=== PATIENT | male | born 1960 | race Caucasian/White ===

== ENCOUNTER 2021-03-04 13:13 | Emergency (ER) | payer OTHER, SELFPAY ==
--- NOTE | ~2021-03-04 | XR_ITS ---
EXAMINATION: XR CHEST CLINICAL INFORMATION: Shortness of breath COMPARISON: None TECHNIQUE: Frontal view of the chest was obtained. FINDINGS: No significant abnormality is noted involving the heart, lungs, mediastinum, bony thorax or soft tissues. XR/XR chest 1V IMPRESSION: Unremarkable examination.
[2021-03-04 14:36] VITALS: BP 137/84; PULSE 67; RESP 18; TEMP 37.3; O2SAT 100; BMI 26.1
--- NOTE | 2021-03-04 14:40 | ECG_ITS ---
Test Reason : COVID SYMPTOMS Blood Pressure : / mmHG Vent. Rate : 069 BPM Atrial Rate : 069 BPM P-R Int : 164 ms QRS Dur : 086 ms QT Int : 398 ms P-R-T Axes : -04 -32 112 degrees QTc Int : 426 ms Normal sinus rhythm with sinus arrhythmia Left axis deviation Septal infarct (cited on or before 12-SEP-2019) T wave abnormality, consider lateral ischemia Abnormal ECG When compared with ECG of 12-SEP-2019 19:38, No significant change was found Referred By: Generic ED Physician Electronically Signed By:SAHIL BERMUDEZ
[2021-03-04 17:05] LABS: Basophils Percent Auto 0.2 % (0-2); Eosinophils Absolute Auto 0.2 X10*3/uL (0.0-0.4); Eosinophils Percent Auto 2.7 % (0-4); Hemoglobin 15.4 g/dl (14.0-18.0); Imm Gran Abs Auto 0.01 X10*3/uL (0.00-0.03); Imm Gran Pct Auto 0.2 % (0.0-0.4); Lymphocytes Absolute Auto 1.8 X10*3/uL (1.2-4.9); Lymphocytes Percent Auto 28.3 % (20-40); MANUAL DIFF FLAG NO; Mean Corpuscular HGB Conc 34.2 g/dl (31.0-36.0); Mean Corpuscular Volume 84.7 fL (80-98); Mean Platelet Volume 12.1 fL (9.4-12.4); Monocytes Absolute Auto 0.4 X10*3/uL (0.1-1.2); Monocytes Percent Auto 6.1 % (2-11); Neutrophils Absolute Auto 3.9 X10*3/uL (2.0-8.3); Neutrophils Percent Auto 62.5 % (45-73); Platelet Count 144 X10*3/uL (160-400); Red Blood Count 5.31 X10*6/uL (4.60-5.80); Red Cell Distribution Width 12.6 % (11.0-16.0); White Blood Count 6.3 X10*3/uL (4.8-10.8)
[2021-03-04 17:23] LABS: COVID-19 Test Negative (Negative)
[2021-03-04 17:32] LABS: Anion Gap 10 (12-20); Blood Urea Nitrogen 14 mg/dL (9-16); Calcium 9.4 mg/dL (8.4-10.2); Carbon Dioxide 34 mmol/L (22-29); Chloride 102 mmol/L (96-108); Creatinine Clr Calc Pharmacy 87.1; Estimated Glomerular Filt Rate > 60; Glucose Random 159 mg/dL (60-115); Potassium 4.7 mmol/L (3.3-5.1); Sodium 141 mmol/L (135-145)
--- NOTE | 2021-03-04 18:22 | ED.URI ---
HPI - URI/Sore Throat General Chief Complaint: Upper Respiratory Symptoms Stated Complaint: covid symptoms Time Seen by Provider: 03/04/21 17:08 Source: patient Mode of arrival: ambulatory Limitations: language barrier History of Present Illness HPI Narrative: 60-year-old male who recently visited with people who had COVID, presents for concerns for COVID with 1 day of sore throat and mild diffuse abdominal pain. The patient is able to swallow, no ear pain. No chest pain, no short of breath, no nausea, vomiting, diarrhea, no nasal congestion, no cough, no fevers MD elicited complaint: sore throat Onset (ago): day(s) (1) Consistency: constant Severity: mild Able to tolerate fluids by mouth: Yes Exacerbating factors: nothing Relieving factors: nothing Context: sick contacts Associated symptoms: denies other symptoms Treatments prior to arrival: none Related Data Previous Rx's Medication Instructions Recorded Magic Mouthwash 5 ml PO Q6-8H PRN #240 ml MDD 20 03/04/21 Diphen/Lido/Antacid 1:1:1 240 mL suspension Allergies Allergy/AdvReac Type Severity Reaction Status Date / Time metformin [Metformin] Allergy Mild ? Unverified 04/01/20 15:28 INTOLERANCE Review of Systems Review of Systems: Constitutional : No Weight loss, No Fever, No Chills, No Night Sweats,No Fatigue, No Malaise ENT/Mouth : + Sore throat, No Hearing loss, No Ear Pain, No Nasal Congestion, NoSinus Pain, No Hoarseness, No Rhinorrhea, NoSwallowing Difficulty Eyes: No Eye Pain, No Swelling, No Redness, No Foreign Body, NoDischarge, No Vision Changes Cardiovascular : No Chest Pain, No SOB, No Dyspnea on Exertion, NoOrthopnea, No Edema, No Palpitations Respiratory : No Cough, No Sputum, No Wheezing, No Smoke Exposure, No Dyspnea Gastrointestinal : No Nausea, No Vomiting, No Diarrhea, NoConstipation, No Hematochezia, No Melena Genitourinary : no irregular bleeding, No Dysuria, No UrinaryFrequency, No Hematuria, No Urinary Incontinence, No Urgency, No FlankPain, No Urinary Flow Changes, No Hesitancy Musculoskeletal : No joint pain, No Myalgias, No Joint Swelling Skin : No Skin Lesions, No rash Neuro : No Weakness, No Numbness, No Paresthesias, No Loss ofConsciousness, No Dizziness, No Headache Psych : mild anxiety, tremors in hands, , No Depression, No SI/HI/AH/VH, No Social Issues, Endocrine : No Polyuria, No Polydipsia, No Temperature Intolerance [facility] Social History Social History Advance Directives: Yes Advance Directives Information Provided: Yes Advance Directives on File: No Physical Exam Vital Signs: Vital Signs: Last Vital Signs Temp 98.4 F 03/04/21 18:32 Pulse 72 03/04/21 18:32 Resp 20 03/04/21 18:32 BP 161/89 H 03/04/21 18:32 Pulse Ox 100 03/04/21 18:32 Body Mass Index 26.1 Appearance: Alert. Oriented X3. No acute distress. Head: Normal external exam. Normocephalic. Atraumatic. ?No Yates signs noted. No raccoon eyes noted Eyes: PERRLA. EOMI. Conjunctiva and sclera normal. Eyelids normal. ENT: + posterior orophayngeal erythema,cerumen impaction, . Uvula midline. Moist mucous membranes. ??No trismus noted. ?No drooling noted. ?No muffled voice noted. Neck: Normal inspection. Neck supple. FROM. No adenopathy. Thyroid Normal. No meningeal signs. No neck mass noted. CVS: Normal heart rate and rhythm. Heart sound normal. Pulses normal throughout. ?No murmurs/rales/gallops. Respiratory: No respiratory distress. Painless inspiration. Breath sounds normal. No wheezes/rales/rhonchi noted. Chest nontender. ??No accessory muscle usage noted or decreased air movement noted. Abdomen: Soft and nontender. Bowel sounds normal in all 4 quadrants. No distention noted. ?No organomegaly noted. ?No visible injury noted. Back: ?No CVA tenderness. ?Full range of motion noted. ?No rashes/lesion/induration/fluctuance or signs of infection noted. Skin: Skin warm and dry. ?Normal skin color. ?Normal skin turgor. No rashes/lesions/lacerations noted. Extremities: No lower extremity edema. ??Extremities exhibit normal range of motion. ?Extremities nontender. Neuro: Oriented X 3. ?No motor deficit. ?No sensory deficit. ?Reflexes normal. ?Normal steady gait. ?No focal neuro deficits noted. Vascular: + radial pulses/+ 2 distal pedal pulses/+2 dorsalis pedis b/l. ?Normal cap refill. ?No cyanosis noted to upper extremity nails and lower extremity toes nails. Course Course Course Narrative: 60-year-old male with COVID exposure presents for 1 day of sore throat. Labs are within normal limits, chest x-ray is normal, COVID is negative. Patient has not had fevers, no strep exposure, I do not suspect strep throat. Most likely viral pharyngitis. Will treat with Magic mouthwash, saltwater gargles, Tylenol, return precautions MDM - URI/Sore Throat Lab Data Result diagrams: 03/04/21 16:57 03/04/21 16:57 Labs: Lab Results 03/04/21 03/04/21 03/04/21 Range/Units 16:57 16:57 16:58 WBC 6.3 (4.8-10.8) X10*3/uL RBC 5.31 (4.60-5.80) X10*6/uL Hgb 15.4 (14.0-18.0) g/dl Hct 45.0 (42-52) % MCV 84.7 (80-98) fL MCH 29.0 (27.0-33.0) pg MCHC 34.2 (31.0-36.0) g/dl RDW 12.6 (11.0-16.0) % Plt Count 144 L (160-400) X10*3/uL MPV 12.1 (9.4-12.4) fL Immature Gran % (Auto) 0.2 (0.0-0.4) % Neut % (Auto) 62.5 (45-73) % Lymph % (Auto) 28.3 (20-40) % [place] % (Auto) 6.1 (2-11) % Eos % (Auto) 2.7 (0-4) % Baso % (Auto) 0.2 (0-2) % Lymph # (Auto) 1.8 (1.2-4.9) X10*3/uL [place] # (Auto) 0.4 (0.1-1.2) X10*3/uL Eos # (Auto) 0.2 (0.0-0.4) X10*3/uL Baso # (Auto) 0.0 (0.0-0.2) X10*3/uL Abs Immat Gran (auto) 0.01 (0.00-0.03) X10*3/uL Absolute Neuts (auto) 3.9 (2.0-8.3) X10*3/uL Absolute Nucleated RBC 0.000 (0.0-0.012) X10*3/uL Nucleated RBC % (auto) 0.0 (0.0-0.2) /100WBC Sodium 141 (135-145) mmol/L Potassium 4.7 (3.3-5.1) mmol/L Chloride 102 (96-108) mmol/L Carbon Dioxide 34 H (22-29) mmol/L Anion Gap 10 L (12-20) BUN 14 (9-16) mg/dL Creatinine 0.85 (0.5-1.4) mg/dL Estim Creat Clear Calc 87.1 Estimated GFR > 60 Random Glucose 159 H (60-115) mg/dL Calcium 9.4 (8.4-10.2) mg/dL COVID-19 (CELI) Negative (Negative) COVID-19 Clin Com See Note ECG Data Interpretation: Sinus rhythm with sinus arrhythmia at a rate of 69, OK interval 164, QRS 86, QTC 426, no acute ST elevation or ST depressions. Discharge Plan Discharge Clinical Impression: Pharyngitis Qualifiers: Pharyngitis/tonsillitis etiology: unspecified etiology Qualified Code(s): J02.9 - Acute pharyngitis, unspecified Patient Disposition: Home, Self-Care Instructions: Pharyngitis (ED) Additional Instructions: Please fill prescription for Magic mouthwash, take a spoonful of it gargle and spit 3 or 4 times a day. You can also use salt water gargles, 1 tsp of salt in a couple of warm water, gargle and spit. You may take ibuprofen or Tylenol for the pain. Please return if you develop fevers, shortness of breath, or any other new or concerning symptoms. Llene la receta del enjuague bucal Magic, tome noah cucharada, wilman g?rgaras y escupe 3 o 4 veces al d?a. Tambi?n puede hacer g?rgaras con agua salada, 1 cucharadita de gerardo en un par de agua tibia, hacer g?rgaras y escupir. Puede moses ibuprofeno o Tylenol para el dolor. Regrese si tiene fiebre, dificultad para respirar o cualquier otro s?ntoma nuevo o preocupante. Prescriptions: New Magic Mouthwash Diphen/Lido/Antacid 1:1:1 240 mL suspension 5 ml PO Q6-8H MDD 20 PRN (Reason: pain) Qty: 240 RF: 0 Interventions: ED Discharge Assessment Last Done: 03/04/21 18:52 Discharge Date/Time: 03/04/21 18:53
[2021-03-04 18:32] VITALS: BP 161/89; PULSE 72; RESP 20; TEMP 36.9; O2SAT 100
== END 2021-03-04 18:53 | disposition home or self-care (01) ==
PROVIDERS: Emergency Provider Emergency Medicine
DX: J06.9 Acute upper respiratory infection, unspecified (principal); Z20.822 Contact with and (suspected) exposure to COVID-19; J02.9 Acute pharyngitis, unspecified
CPT/HCPCS: 36415; 71045; 80048; 85025; 87635; 93005; 99283; 99284

== ENCOUNTER 2021-04-04 11:55 | Emergency (ER) | payer OTHER, SELFPAY ==
[2021-04-04 12:51] VITALS: BP 147/79; PULSE 72; RESP 16; TEMP 37; O2SAT 100; BMI 32.8
== END 2021-04-04 17:12 | disposition left against medical advice (07) ==
PROVIDERS: Emergency Provider Emergency Medicine
DX: H57.11 Ocular pain, right eye (principal)
CPT/HCPCS: 99282; 99283

== ENCOUNTER 2022-10-27 19:37 | Emergency (ER) | payer OTHER, SELFPAY ==
--- NOTE | ~2022-10-27 | XR_ITS ---
EXAMINATION: XR ANKLE, LEFT CLINICAL INFORMATION: Wounds. Pain. COMPARISON: None available. TECHNIQUE: 3 views of the left ankle. FINDINGS: No fracture. No dislocation. Corticated osseous density measuring 8 mm inferior to lateral malleolus is chronic. No focal bone destruction. No radiographic evidence for osteomyelitis. Mild soft tissue swelling at lateral malleolus. No air in the soft tissue. No radiopaque foreign body. Small plantar calcaneal spur XR/XR ankle LT min 3V IMPRESSION: 1. No acute osseous abnormality. 2. Mild soft tissue swelling at lateral malleolus. No air in the soft tissue. No radiopaque foreign body.
--- NOTE | 2022-10-27 20:10 | ED.GENADULT ---
HPI - General Adult General Chief complaint: Extremity Injury, Lower <FABRICIO Garay - Last Filed: 10/27/22 20:11> Stated complaint: Leg pain/neuropathy <FABRICIO Garay - Last Filed: 10/27/22 20:11> Time Seen by Provider: 10/28/22 00:15 <FABRICIO Garay - Last Filed: 10/27/22 20:11> Source: patient <Saulo Patel MD - Last Filed: 10/28/22 07:12> Mode of arrival: ambulatory <Saulo Patel MD - Last Filed: 10/28/22 07:12> Limitations: no limitations <Saulo Patel MD - Last Filed: 10/28/22 07:12> History of Present Illness HPI narrative: Patient diabetic missed his insulin since yesterday as he staying with his friend house had to come in emergency and left his med insulin at home blood sugar on arrival was 522 patient feeling thirsty and weak also complaining of wound in left ankle does not know what happened as has neuropathy and does not feel his feet no fever no chills no pus discharge <Saulo Patel MD - Last Filed: 10/28/22 07:12> Related Data Home medications: Previous Rx's Medication Instructions Recorded Magic Mouthwash 5 ml PO Q6-8H PRN pain #240 mL 03/04/21 Diphen/Lido/Antacid 1:1:1 240 mL suspension <FABRICIO Garay - Last Filed: 10/27/22 20:11> Allergies/adverse reactions: Allergies Allergy/AdvReac Type Severity Reaction Status Date / Time metformin [Metformin] Allergy Mild ? Verified 10/28/22 00:56 INTOLERANCE <FABRICIO Garay - Last Filed: 10/27/22 20:11> Review of Systems Review of Systems: Yes all other systems are reviewed and are negative <Saulo Patel MD - Last Filed: 10/28/22 07:12> PMFSH Past Medical History Medical History: Medical History Diabetes Heart attack HTN (hypertension) Hypercholesterolemia <FABRICIO Garay - Last Filed: 10/27/22 20:11> Social History Social History: Social History Advance Directives: No Advance Directives Information Provided: No <FABRICIO Graay - Last Filed: 10/27/22 20:11> Physical Exam ED Vital Signs: Vital Signs - 24 hr 10/27/22 20:19 10/28/22 00:43 10/28/22 02:59 Temperature 98.0 F 97.8 F 97.5 F Pulse Rate 66 66 59 Respiratory Rate 16 12 12 Blood Pressure 129/66 133/72 154/76 H Pulse Oximetry 98 99 99 Oxygen Delivery Method Room Air Room Air Room Air 10/28/22 03:51 Temperature 97.6 F Pulse Rate 58 Respiratory Rate 16 Blood Pressure 137/69 Pulse Oximetry 99 Oxygen Delivery Method Room Air BMI result Body Mass Index 29.9 <FABRICIO Garay - Last Filed: 10/27/22 20:11> Vital Signs - 24 hr 10/27/22 20:19 10/28/22 00:43 10/28/22 02:59 Temperature 98.0 F 97.8 F 97.5 F Pulse Rate 66 66 59 Respiratory Rate 16 12 12 Blood Pressure 129/66 133/72 154/76 H Pulse Oximetry 98 99 99 Oxygen Delivery Method Room Air Room Air Room Air 10/28/22 03:51 Temperature 97.6 F Pulse Rate 58 Respiratory Rate 16 Blood Pressure 137/69 Pulse Oximetry 99 Oxygen Delivery Method Room Air BMI result Body Mass Index 29.9 <Saulo Patel MD - Last Filed: 10/28/22 07:12> Appearance: Alert. Oriented X3. No acute distress. Eyes: PERRLA, No Nystagmus ENT: Pharynx normal. Oral Mucosa dry Neck: Normal inspection. Neck supple. CVS: Normal heart rate and rhythm. Pulses normal. Respiratory: No respiratory distress. Equal air entry bilateral, no wheezing/rales/rhonchi Abdomen: Soft and nontender. Bowel sounds are present, no mass palpable, no CVA tenderness Skin: Skin warm and dry. Normal skin color. Normal skin turgor. Abrasion to left ankle no infection or pus discharge Extremities: No lower extremity edema. No calf tenderness Neuro: Oriented X 3. No motor deficit. Decreased sensation to light touch and pinprick.No cerebellar signs , cranial nerves II-XII intact <Saulo Patel MD - Last Filed: 10/28/22 07:12> Course Course Course Narrative: RME performed by Danae Arango PA-C. Patient is a 62 year old assigned male at presenting to the emergency department with multiple left lower leg ulcers. Patient is a diabetic. Labs, imaging, and swab ordered. Patient placed back in the waiting room pending room availability and results. <FABRICIO Garay - Last Filed: 10/27/22 20:11> Medications Administered Discontinued Medications Generic Name Dose Route Start Last Admin Trade Name Freq PRN Reason Stop Dose Admin Sodium Chloride 1,000 mls @ 999 mls/hr 10/28/22 00:51 10/28/22 01:59 Ns IV 10/28/22 01:51 Infused .Q1H1M ONE Infusion Insulin Glargine 12 unit 10/28/22 00:51 10/28/22 01:12 Insulin Glargine,Hum.Rec.Anlog 100 Unit/Ml 10 Ml Vial SUBCUT 10/28/22 00:52 12 unit ONCE ONE Administration Insulin Human Lispro 14 unit 10/28/22 00:51 10/28/22 01:13 Insulin Lispro 100 Unit/Ml 3 Ml Vial SUBCUT 10/28/22 00:52 14 unit ONCE ONE Administration <FABRICIO Garay - Last Filed: 10/27/22 20:11> Medications Administered Discontinued Medications Generic Name Dose Route Start Last Admin Trade Name Freq PRN Reason Stop Dose Admin Sodium Chloride 1,000 mls @ 999 mls/hr 10/28/22 00:51 10/28/22 01:59 Ns IV 10/28/22 01:51 Infused .Q1H1M ONE Infusion Insulin Glargine 12 unit 10/28/22 00:51 10/28/22 01:12 Insulin Glargine,Hum.Rec.Anlog 100 Unit/Ml 10 Ml Vial SUBCUT 10/28/22 00:52 12 unit ONCE ONE Administration Insulin Human Lispro 14 unit 10/28/22 00:51 10/28/22 01:13 Insulin Lispro 100 Unit/Ml 3 Ml Vial SUBCUT 10/28/22 00:52 14 unit ONCE ONE Administration <Saulo Patel MD - Last Filed: 10/28/22 07:12> Medical Decision Making Lab Data Result Diagrams: 10/27/22 20:42 10/27/22 20:42 <FABRICIO Garay - Last Filed: 10/27/22 20:11> Labs: Lab Results 10/27/22 10/27/22 10/27/22 Range/Units 20:42 20:42 20:42 WBC 5.9 (4.8-10.8) X10*3/uL RBC 5.36 (4.60-5.80) X10*6/uL Hgb 15.4 (14.0-18.0) g/dl Hct 44.3 (42.0-52.0) % MCV 82.6 (80.0-98.0) fL MCH 28.7 (27.0-33.0) pg MCHC 34.8 (31.0-36.0) g/dl RDW 12.5 (11.0-16.0) % Plt Count 137 L (160-400) X10*3/uL MPV 12.4 (9.4-12.4) fL Immature Gran % (Auto) 0.2 (0.0-0.4) % Neut % (Auto) 67.0 (45-73) % Lymph % (Auto) 25.3 (20-40) % [place] % (Auto) 5.6 (2-11) % Eos % (Auto) 1.7 (0-4) % Baso % (Auto) 0.2 (0-2) % Lymph # (Auto) 1.5 (1.2-4.9) X10*3/uL [place] # (Auto) 0.3 (0.1-1.2) X10*3/uL Eos # (Auto) 0.1 (0.0-0.4) X10*3/uL Baso # (Auto) 0.0 (0.0-0.2) X10*3/uL Abs Immat Gran (auto) 0.01 (0.00-0.03) X10*3/uL Absolute Neuts (auto) 4.0 (2.0-8.3) x10*3/uL Absolute Nucleated RBC 0.000 (0.0-0.012) X10*3/uL Nucleated RBC % (auto) 0.0 (0.0-0.2) /100WBC ESR 6 (0-15) MM/HR Sodium 136 (135-145) mmol/L Potassium 4.1 (3.3-5.1) mmol/L Chloride 99 (96-108) mmol/L Carbon Dioxide 28 (22-29) mmol/L Anion Gap 13 (12-20) BUN 16 (9-16) mg/dL Creatinine 1.35 (0.5-1.4) mg/dL Estim Creat Clear Calc 54.3 Estimated GFR 53 POC Glucose (60-115) mg/dL Random Glucose 522 H* (60-115) mg/dL Calcium 8.9 (8.4-10.2) mg/dL Magnesium 1.9 (1.6-2.6) mg/dL Total Bilirubin 1.7 H (0.0-1.0) mg/dL AST 13 (5-37) U/L ALT 14 (0-40) U/L Alkaline Phosphatase 115 (39-117) U/L C-Reactive Protein 0.69 H (< or = 0.50) mg/dL Total Protein 6.1 L (6.5-8.0) g/dL Albumin 3.9 (3.5-5.0) g/dL COVID-19 (CELI) (Negative) COVID-19 Clin Com 10/27/22 10/28/22 Range/Units 20:42 02:58 WBC (4.8-10.8) X10*3/uL RBC (4.60-5.80) X10*6/uL Hgb (14.0-18.0) g/dl Hct (42.0-52.0) % MCV (80.0-98.0) fL MCH (27.0-33.0) pg MCHC (31.0-36.0) g/dl RDW (11.0-16.0) % Plt Count (160-400) X10*3/uL MPV (9.4-12.4) fL Immature Gran % (Auto) (0.0-0.4) % Neut % (Auto) (45-73) % Lymph % (Auto) (20-40) % [place] % (Auto) (2-11) % Eos % (Auto) (0-4) % Baso % (Auto) (0-2) % Lymph # (Auto) (1.2-4.9) X10*3/uL [place] # (Auto) (0.1-1.2) X10*3/uL Eos # (Auto) (0.0-0.4) X10*3/uL Baso # (Auto) (0.0-0.2) X10*3/uL Abs Immat Gran (auto) (0.00-0.03) X10*3/uL Absolute Neuts (auto) (2.0-8.3) x10*3/uL Absolute Nucleated RBC (0.0-0.012) X10*3/uL Nucleated RBC % (auto) (0.0-0.2) /100WBC ESR (0-15) MM/HR Sodium (135-145) mmol/L Potassium (3.3-5.1) mmol/L Chloride (96-108) mmol/L Carbon Dioxide (22-29) mmol/L Anion Gap (12-20) BUN (9-16) mg/dL Creatinine (0.5-1.4) mg/dL Estim Creat Clear Calc Estimated GFR POC Glucose 257 H (60-115) mg/dL Random Glucose (60-115) mg/dL Calcium (8.4-10.2) mg/dL Magnesium (1.6-2.6) mg/dL Total Bilirubin (0.0-1.0) mg/dL AST (5-37) U/L ALT (0-40) U/L Alkaline Phosphatase (39-117) U/L C-Reactive Protein (< or = 0.50) mg/dL Total Protein (6.5-8.0) g/dL Albumin (3.5-5.0) g/dL COVID-19 (CELI) Negative (Negative) COVID-19 Clin Com See Note <FABRICIO Garay - Last Filed: 10/27/22 20:11> Lab Results 10/27/22 10/27/22 10/27/22 Range/Units 20:42 20:42 20:42 WBC 5.9 (4.8-10.8) X10*3/uL RBC 5.36 (4.60-5.80) X10*6/uL Hgb 15.4 (14.0-18.0) g/dl Hct 44.3 (42.0-52.0) % MCV 82.6 (80.0-98.0) fL MCH 28.7 (27.0-33.0) pg MCHC 34.8 (31.0-36.0) g/dl RDW 12.5 (11.0-16.0) % Plt Count 137 L (160-400) X10*3/uL MPV 12.4 (9.4-12.4) fL Immature Gran % (Auto) 0.2 (0.0-0.4) % Neut % (Auto) 67.0 (45-73) % Lymph % (Auto) 25.3 (20-40) % [place] % (Auto) 5.6 (2-11) % Eos % (Auto) 1.7 (0-4) % Baso % (Auto) 0.2 (0-2) % Lymph # (Auto) 1.5 (1.2-4.9) X10*3/uL [place] # (Auto) 0.3 (0.1-1.2) X10*3/uL Eos # (Auto) 0.1 (0.0-0.4) X10*3/uL Baso # (Auto) 0.0 (0.0-0.2) X10*3/uL Abs Immat Gran (auto) 0.01 (0.00-0.03) X10*3/uL Absolute Neuts (auto) 4.0 (2.0-8.3) x10*3/uL Absolute Nucleated RBC 0.000 (0.0-0.012) X10*3/uL Nucleated RBC % (auto) 0.0 (0.0-0.2) /100WBC ESR 6 (0-15) MM/HR Sodium 136 (135-145) mmol/L Potassium 4.1 (3.3-5.1) mmol/L Chloride 99 (96-108) mmol/L Carbon Dioxide 28 (22-29) mmol/L Anion Gap 13 (12-20) BUN 16 (9-16) mg/dL Creatinine 1.35 (0.5-1.4) mg/dL Estim Creat Clear Calc 54.3 Estimated GFR 53 POC Glucose (60-115) mg/dL Random Glucose 522 H* (60-115) mg/dL Calcium 8.9 (8.4-10.2) mg/dL Magnesium 1.9 (1.6-2.6) mg/dL Total Bilirubin 1.7 H (0.0-1.0) mg/dL AST 13 (5-37) U/L ALT 14 (0-40) U/L Alkaline Phosphatase 115 (39-117) U/L C-Reactive Protein 0.69 H (< or = 0.50) mg/dL Total Protein 6.1 L (6.5-8.0) g/dL Albumin 3.9 (3.5-5.0) g/dL COVID-19 (CELI) (Negative) COVID-19 Clin Com 10/27/22 10/28/22 Range/Units 20:42 02:58 WBC (4.8-10.8) X10*3/uL RBC (4.60-5.80) X10*6/uL Hgb (14.0-18.0) g/dl Hct (42.0-52.0) % MCV (80.0-98.0) fL MCH (27.0-33.0) pg MCHC (31.0-36.0) g/dl RDW (11.0-16.0) % Plt Count (160-400) X10*3/uL MPV (9.4-12.4) fL Immature Gran % (Auto) (0.0-0.4) % Neut % (Auto) (45-73) % Lymph % (Auto) (20-40) % [place] % (Auto) (2-11) % Eos % (Auto) (0-4) % Baso % (Auto) (0-2) % Lymph # (Auto) (1.2-4.9) X10*3/uL [place] # (Auto) (0.1-1.2) X10*3/uL Eos # (Auto) (0.0-0.4) X10*3/uL Baso # (Auto) (0.0-0.2) X10*3/uL Abs Immat Gran (auto) (0.00-0.03) X10*3/uL Absolute Neuts (auto) (2.0-8.3) x10*3/uL Absolute Nucleated RBC (0.0-0.012) X10*3/uL Nucleated RBC % (auto) (0.0-0.2) /100WBC ESR (0-15) MM/HR Sodium (135-145) mmol/L Potassium (3.3-5.1) mmol/L Chloride (96-108) mmol/L Carbon Dioxide (22-29) mmol/L Anion Gap (12-20) BUN (9-16) mg/dL Creatinine (0.5-1.4) mg/dL Estim Creat Clear Calc Estimated GFR POC Glucose 257 H (60-115) mg/dL Random Glucose (60-115) mg/dL Calcium (8.4-10.2) mg/dL Magnesium (1.6-2.6) mg/dL Total Bilirubin (0.0-1.0) mg/dL AST (5-37) U/L ALT (0-40) U/L Alkaline Phosphatase (39-117) U/L C-Reactive Protein (< or = 0.50) mg/dL Total Protein (6.5-8.0) g/dL Albumin (3.5-5.0) g/dL COVID-19 (CELI) Negative (Negative) COVID-19 Clin Com See Note <Saulo Patel MD - Last Filed: 10/28/22 07:12> Discharge Plan Discharge Clinical Impression: Hyperglycemia due to type 2 diabetes mellitus <FABRICIO Garay - Last Filed: 10/27/22 20:11> Patient Disposition: Home, Self-Care <FABRICIO Garay - Last Filed: 10/27/22 20:11> Instructions: Diabetic Hyperglycemia (ED) <FABRICIO Garay - Last Filed: 10/27/22 20:11> Additional Instructions: Take your insulin on time and check your blood sugar regularly Local care of superficial wound on left ankle as advised use antibiotic ointment <FABRICIO Garay - Last Filed: 10/27/22 20:11> Prescriptions: No Action Magic Mouthwash Diphen/Lido/Antacid 1:1:1 240 mL suspension 5 ml PO Q6-8H MDD 20 PRN (Reason: pain) Qty: 240 0RF Rx Instructions: Lidocaine Viscous 2 % 80mL; diphenhydramine 12.5 mg/5 mL 80mL; aluminum-mag hydrox-simeth [id number]/5mL 80mL <FABRICIO Garay - Last Filed: 10/27/22 20:11> Interventions: ED Discharge Assessment Last Done: 10/28/22 04:09 <FABRICIO Garay - Last Filed: 10/27/22 20:11> Discharge Date/Time: 10/28/22 04:09 <FABRICIO Garay - Last Filed: 10/27/22 20:11>
[2022-10-27 20:19] VITALS: BP 129/66; PULSE 66; RESP 16; TEMP 36.7; O2SAT 98; BMI 29.9
[2022-10-27 20:57] LABS: MANUAL DIFF FLAG NO
[2022-10-27 21:02] LABS: Basophils Percent Auto 0.2 % (0-2); Eosinophils Absolute Auto 0.1 X10*3/uL (0.0-0.4); Eosinophils Percent Auto 1.7 % (0-4); Hematocrit 44.3 % (42.0-52.0); Hemoglobin 15.4 g/dl (14.0-18.0); Imm Gran Abs Auto 0.01 X10*3/uL (0.00-0.03); Imm Gran Pct Auto 0.2 % (0.0-0.4); Lymphocytes Absolute Auto 1.5 X10*3/uL (1.2-4.9); Lymphocytes Percent Auto 25.3 % (20-40); Mean Corpuscular HGB Conc 34.8 g/dl (31.0-36.0); Mean Corpuscular Hemoglobin 28.7 pg (27.0-33.0); Mean Corpuscular Volume 82.6 fL (80.0-98.0); Mean Platelet Volume 12.4 fL (9.4-12.4); Monocytes Absolute Auto 0.3 X10*3/uL (0.1-1.2); Monocytes Percent Auto 5.6 % (2-11); Platelet Count 137 X10*3/uL (160-400); Red Blood Count 5.36 X10*6/uL (4.60-5.80); Red Cell Distribution Width 12.5 % (11.0-16.0); White Blood Count 5.9 X10*3/uL (4.8-10.8)
[2022-10-27 21:19] LABS: COVID-19 Test Negative (Negative); IDNOW Serial# 55D5AD1C
[2022-10-27 21:47] LABS: Alanine Aminotransferase 14 U/L (0-40); Albumin Level 3.9 g/dL (3.5-5.0); Alkaline Phosphatase 115 U/L (39-117); Anion Gap 13 (12-20); Aspartate Amino Transferase 13 U/L (5-37); Bilirubin Total 1.7 mg/dL (0.0-1.0); Blood Urea Nitrogen 16 mg/dL (9-16); C Reactive Protein 0.69 mg/dL (< or = 0.50); Calcium 8.9 mg/dL (8.4-10.2); Carbon Dioxide 28 mmol/L (22-29); Chloride 99 mmol/L (96-108); Creatinine Clr Calc Pharmacy 54.3; Estimated Glomerular Filt Rate 53; Glucose Random 522 mg/dL (60-115); Magnesium 1.9 mg/dL (1.6-2.6); Potassium 4.1 mmol/L (3.3-5.1); Sodium 136 mmol/L (135-145); Total Protein 6.1 g/dL (6.5-8.0)
[2022-10-27 21:50] LABS: Erythrocyte Sedimentation Rate 6 MM/HR (0-15)
[2022-10-28 00:43] VITALS: BP 133/72; PULSE 66; RESP 12; TEMP 36.6; O2SAT 99
[2022-10-28] MEDS: 0.9 % Sodium Chloride 1,000 ML 999 ML IV (00:58)
[2022-10-28] MEDS: Insulin Glargine,Hum.rec.anlog 100 UNIT/ML 10 ML VIAL 12 UNIT SUBCUT (01:12)
[2022-10-28] MEDS: Insulin Lispro 100 UNIT/ML 3 ML VIAL 14 UNIT SUBCUT (01:13)
[2022-10-28 02:59] VITALS: BP 154/76; PULSE 59; RESP 12; TEMP 36.4; O2SAT 99
[2022-10-28 03:50] LABS: Glucose, Whole Blood 257 mg/dL (60-115)
[2022-10-28 03:51] VITALS: BP 137/69; PULSE 58; RESP 16; TEMP 36.4; O2SAT 99
--- NOTE | 2022-10-28 04:09 | PC.NURSE ---
IV line removed with no complications. Pt toleratdd well. Discharge instructions reviewed with pt. Pt verbalizes understanding.
== END 2022-10-28 04:09 | disposition home or self-care (01) ==
PROVIDERS: Physician Assistant Medical; Emergency Provider Internal Medicine
DX: E11.65 Type 2 diabetes mellitus with hyperglycemia (principal); E11.622 Type 2 diabetes mellitus with other skin ulcer; L97.929 Non-pressure chronic ulcer of unspecified part of left lower leg with unspecified severity; E11.40 Type 2 diabetes mellitus with diabetic neuropathy, unspecified; Z20.822 Contact with and (suspected) exposure to COVID-19
CPT/HCPCS: 73610; 80053; 82947; 83735; 85025; 85652; 86140; 87635; 96360; 99284

== ENCOUNTER 2022-11-29 12:27 | Outpatient (RCR) | payer OTHER, SELFPAY | END 2022-12-22 14:07 | disposition home or self-care (01) | LOC: HO.WCC 12:27 | PROVIDERS: Visit Provider Surgery | DX: E11.621 Type 2 diabetes mellitus with foot ulcer (principal); L97.521 Non-pressure chronic ulcer of other part of left foot limited to breakdown of skin | CPT/HCPCS: 11042; 99212 ==

== ENCOUNTER 2023-03-22 16:58 | Emergency (ER) | payer OTHER, SELFPAY ==
--- NOTE | ~2023-03-22 | CT_ITS ---
EXAMINATION: CT HEAD WITHOUT CONTRAST CLINICAL INFORMATION: Headache and dizziness. COMPARISON: None available. TECHNIQUE: Contiguous axial imaging was performed from the skull base to vertex without intravenous administration of contrast. This CT examination was performed using dose optimization techniques as appropriate, variously including the following: *Automated exposure control *Adjustment of mA and/or kV according to patient size (this includes techniques or standardized protocols for targeted exams where dose is matched to indication/reason for exam; i.e. extremities or head) *Use of iterative reconstruction technique DLP: 750 mGy-cm FINDINGS: The ventricular system is normal in size and configuration. The bilateral hemispheres and the cerebellum show no mass, hemorrhage, infarction or extracerebral collection. The basilar cisterns are patent. The sulci are not widened. There is moderate bilateral ethmoid sinusitis. The mastoid air cells appear clear. CT/CT head/brain wo IV con IMPRESSION: 1. No acute intracranial pathology. 2. There is moderate bilateral ethmoid sinusitis.
--- NOTE | ~2023-03-22 | XR_ITS ---
EXAMINATION: XR CHEST 2 VIEWS CLINICAL INFORMATION: Chest pain. COMPARISON: Chest radiographs dated 03/04/2021 and 10/08/2011. TECHNIQUE: Frontal and lateral views of the chest were obtained. FINDINGS: The heart, great vessels, pulmonary vasculature and mediastinum are normal. There is chronic, stable prominence of the right paratracheal stripe, likely secondary to overlapping vascular structures. The lungs show no focal infiltrate, effusion or pneumothorax. There is mild elevation of the right hemidiaphragm. There is no acute osseous abnormality. XR/XR chest 2V IMPRESSION: No active cardiopulmonary disease.
[2023-03-22 17:55] VITALS: BP 97/55; PULSE 65; RESP 16; TEMP 36.9; O2SAT 98; BMI 29.1
--- NOTE | 2023-03-22 17:56 | ED.CHESTPAIN ---
HPI - Chest Pain General Chief Complaint: Chest Pain Stated Complaint: abscess back of deck Time Seen by Provider: 03/22/23 19:11 Source: patient and RN notes reviewed Mode of arrival: ambulatory Limitations: language barrier History of Present Illness HPI narrative: This is a 62-year-old Bulgarian-speaking male, with a past medical history of hypertension, hyperlipidemia, type 2 diabetes, multiple strokes , and diabetic neuropathy, presenting to the emergency department with multiple complaints. Patient reports that he has had intermittent exertional chest pain over the last 3 days. He states that he has had 3 episodes of chest pain starting at 9:00 a.m. this morning. He states that he has 15 minutes worth of left-sided chest pain and resolved on its own. He states that his last episode of chest pain occurred around 2:00 p.m. this afternoon. He states that this chest pain occurs with exertion. He endorses dizziness and headaches during these chest pain episodes. He states that he has had headaches and dizziness over the last several weeks. Patient denies any changes in his vision, shortness of breath, palpitations, abdominal pain, nausea, vomiting or diarrhea. Patient denies any current chest pain. Patient also reporting painful lump to the back of his neck for the last 2 days. Endorsing some subjective fevers and chills. Denies any other complaints or concerns at this time. MD complaint: chest pain Pertinent past history: coronary artery disease Onset (ago): day(s) Timing of current episode: episodic Prior episodes: Yes Onset: during exertion Pain location: left chest Pain radiation: none Severity: moderate Quality: tightness, aching and heaviness Relieving factors: remaining still Exacerbating factors: exertion Associated symptoms: dyspnea Treatment prior to arrival: none Risk Factors Coronary artery disease risk factors: diabetes, hyperlipidemia and hypertension Related Data Previous Rx's Medication Instructions Recorded Magic Mouthwash 5 ml PO Q6-8H PRN pain #240 mL 03/04/21 Diphen/Lido/Antacid 1:1:1 240 mL suspension cephalexin 250 mg capsule 250 mg PO QID 7 days #28 caps 03/23/23 doxycycline hyclate 100 mg capsule 100 mg PO BID 7 days #14 caps 03/23/23 Allergies Allergy/AdvReac Type Severity Reaction Status Date / Time metformin [Metformin] Allergy Mild ? Verified 10/28/22 00:56 INTOLERANCE Review of Systems Review of Systems: Yes all other systems are reviewed and are negative Constitutional: Constitutional: Reports as per [facility] Past Medical History Medical History Diabetes Heart attack HTN (hypertension) Hypercholesterolemia Social History Social History Advance Directives: No Advance Directives Information Provided: No Physical Exam Vital Signs: Vital Signs: Last Vital Signs Temp 98.4 F 03/22/23 17:55 Pulse 91 03/22/23 23:40 Resp 12 03/22/23 23:40 BP 140/66 H 03/22/23 23:40 Pulse Ox 99 03/22/23 23:40 O2 Del Method Room Air 03/22/23 23:40 BMI result Body Mass Index 29.1 Const: General: cooperative, comfortable and no acute distress Orientation/consciousness: patient oriented x3 Limitations: no limitations HEENT: Head: Yes normal to inspection, Yes normocephalic and Yes atraumatic Ears: hearing grossly normal bilaterally General nose exam: Normal external nose present Face and sinus: Yes normal facial exam Mouth: Normal oral and palatal mucosa present, oropharynx normal and moist mucous membranes Throat: Yes posterior oropharynx normal Eyes: General: appearance normal, both eyes and all related structures Eyelids: Yes eyelids normal Conjunctivae: conjunctivae normal Sclerae: sclerae normal Pupils: Equal, round and reactive pupils present EOM: EOMs intact bilaterally Neck: Neck: Yes normal visual inspection, Yes full ROM and Yes no lymphadenopathy Lymphatic: no lymphadenopathy noted Chest: Chest palpation & inspection: normal inspection of the chest Resp: Effort & Inspection: normal respiratory effort and able to speak in complete sentences Auscultation: clear to auscultation bilaterally, no crackles, no rales, no rhonchi and no wheezes Cardio: Rate: regular rate Rhythm: regular rhythm Heart sounds: S1 normal heart sound present and S2 normal heart sound present GI: Inspection: Yes normal to inspection Skin: Other: Posterior neck with 3 x 3 cm indurated abscess, no fluctuance or drainage. Mild warmth, mild tenderness palpation. General skin exam: no rashes or lesions noted Trauma: no lacerations or abrasions Wounds: no wounds Neuro: General: patient oriented x3 and moves all extremities Cranial nerves: Yes CN's II-XII intact bilaterally, Yes Equal, round and reactive pupils present, Yes Normal facial strength present, Yes Midline tongue present, Yes Ability to bilaterally rotate head present and Yes Ability to bilaterally elevate shoulders present Cognition (Neuro): normal cognition Gait exam (Neuro): Normal gait present Motor exam (neuro): 5/5 motor strength present throughout, Pronator motor function not present and no tremor noted Coordination: fgfmax-kl-[id number] test normal and dgqx-gw-erbq test normal Extrem: General: Yes normal to inspection Right upper extremity: normal to inspection Left upper extremity: normal to inspection Right lower extremity: normal to inspection Left lower extremity: normal to inspection Course Course Course Narrative: This is a rapid medical exam. Deferred additional HPI, ROS, PE to primary provider. 62 yo male w/ history of DM, HLD, HTN, cardiac history, neuropathy here with multiple complaints. Abscess to posterior head since Sunday. Chest pain radiating to right arm, described as tightness which is intermittent, worsened with exertion, diff breathing began today, subjective fevers, chills. VSS Reevaluation(s) Reevaluation #1: Second troponin without any change. I discussed this case with my attending physician, Dr. Patel who saw patient as well. We reviewed cardiac history, patient had echocardiogram done 5-6 months ago and stress test that was done about 1 year ago. He also had a cardiac angiogram within this past year and was told that he has no blockages. Given patient's full cardiac workup in the past that was negative, it is recommended that patient should have close follow-up with grated cheese maker, advised to call tomorrow to make an appointment. Abscess will be treated with Keflex and doxycycline. Patient stable for discharge. Time: 00:25 Medical Decision Making Medical Decision Making [facility] Narrative: This is a 62-year-old male, with a past medical history of hypertension, hyperlipidemia, type 2 diabetes, multiple strokes on blood thinner unsure of name, and diabetic neuropathy, presenting to the emergency department with multiple complaints. Patient complaining of exertional chest pain over the last 3 days with associated dizziness and headaches. On arrival, mildly hypotensive at 97/55, patient appears comfortable and nontoxic appearing. All other vital signs within normal limits. Patient does not have any current chest pain, last episode was 5 hours ago. EKG with new inverted T-waves seen in V5 and V6 compared to previous from 2020. Patient has a heart score of 5. Patient was seen by triage provider where labs were performed, patient has troponin of 19.8, will repeat at 9:30 a.m.. Chest x-ray unremarkable, mildly hyperglycemic at 311. Patient also complaining of abscess to his posterior head, is not fluctuant at this time, therefore needs to be treated with oral antibiotics and warm compresses. Plan: Repeat troponin at 9:30p.m. Differential Diagnosis Differential Diagnoses: The differential diagnosis associated with the presentation includes ACS, STEMI, NSTEMI, anxiety, CVA Admission/Observation Consideration of admission/observation: Escalation of care including admission/observation considered Escalation of care including admission/observation was considered given risk factors. Lab Data MDM Lab Attestation statement: I reviewed the patient's lab results. 03/22/23 18:24 03/22/23 18:24 Labs: Lab Results 03/22/23 03/22/23 Range/Units 18:24 21:30 WBC 6.1 (4.8-10.8) X10*3/uL RBC 5.23 (4.60-5.80) X10*6/uL Hgb 15.3 (14.0-18.0) g/dl Hct 43.9 (42.0-52.0) % MCV 83.9 (80.0-98.0) fL MCH 29.3 (27.0-33.0) pg MCHC 34.9 (31.0-36.0) g/dl RDW 12.9 (11.0-16.0) % Plt Count 146 L (160-400) X10*3/uL MPV 11.8 (9.4-12.4) fL Immature Gran % (Auto) 0.3 (0.0-0.4) % Neut % (Auto) 63.3 (45-73) % Lymph % (Auto) 26.7 (20-40) % [place] % (Auto) 6.5 (2-11) % Eos % (Auto) 2.9 (0-4) % Baso % (Auto) 0.3 (0-2) % Lymph # (Auto) 1.6 (1.2-4.9) X10*3/uL [place] # (Auto) 0.4 (0.1-1.2) X10*3/uL Eos # (Auto) 0.2 (0.0-0.4) X10*3/uL Baso # (Auto) 0.0 (0.0-0.2) X10*3/uL Abs Immat Gran (auto) 0.02 (0.00-0.03) X10*3/uL Absolute Neuts (auto) 3.9 (2.0-8.3) x10*3/uL Absolute Nucleated RBC 0.000 (0.0-0.012) X10*3/uL Nucleated RBC % (auto) 0.0 (0.0-0.2) /100WBC Smear Tech's Comments VERIFIED PT 11.8 (11.1-13.3) SEC INR 1.0 (0.9-1.1) Sodium 137 (135-145) mmol/L Potassium 4.3 (3.3-5.1) mmol/L Chloride 101 (96-108) mmol/L Carbon Dioxide 31 H (22-29) mmol/L Anion Gap 9 L (12-20) BUN 18 H (9-16) mg/dL Creatinine 1.07 (0.5-1.4) mg/dL Estim Creat Clear Calc 67.7 Estimated GFR > 60 Random Glucose 311 H (60-115) mg/dL Calcium 9.4 (8.4-10.2) mg/dL Magnesium 1.8 (1.6-2.6) mg/dL Total Bilirubin 0.7 (0.0-1.0) mg/dL Direct Bilirubin 0.2 (0.0-0.5) mg/dL AST 14 (5-37) U/L ALT 11 (0-40) U/L Alkaline Phosphatase 109 (39-117) U/L Troponin I High Sens 19.8 18.5 (<3.5-35.0) ng/L Total Protein 6.5 (6.5-8.0) g/dL Albumin 3.8 (3.5-5.0) g/dL Independent Interpretation I performed an independent interpretation of an: EKG Interpretation: EKG normal sinus rhythm with sinus arrhythmia at a ventricular rate of 64 beats per minute. new inverted T-waves seen in V5 and V6, old T-wave inversion V2-V4. Radiology Impression Discussion of test interpretation with radiology: I have reviewed the radiologist's reading. Radiologist Impression: EXAMINATION: XR CHEST 2 VIEWS CLINICAL INFORMATION: Chest pain. COMPARISON: Chest radiographs dated 03/04/2021 and 10/08/2011. TECHNIQUE: Frontal and lateral views of the chest were obtained. FINDINGS: The heart, great vessels, pulmonary vasculature and mediastinum are normal. There is chronic, stable prominence of the right paratracheal stripe, likely secondary to overlapping vascular structures. The lungs show no focal infiltrate, effusion or pneumothorax. There is mild elevation of the right hemidiaphragm. There is no acute osseous abnormality. XR/XR chest 2V IMPRESSION: No active cardiopulmonary disease. Dictated By: Mahad Davis MD Chronic Conditions Patient?s care impacted by: Diabetes and Hypertension Scores Heart Score History: -1- moderately suspicious ECG: -1- non specific repolarization disturbance Age: -1- >45 - <65 Risk factory: -2- 3 or more risk factors or treated atherosclerosis Troponin: -0- < or = normal limit Score: 5 Risk: 16.6% Discharge Plan Discharge Clinical Impression: Abscess Chest pain Qualifiers: Chest pain type: unspecified Qualified Code(s): R07.9 - Chest pain, unspecified Patient Disposition: Home, Self-Care Instructions: Chest Pain (ED), Abscess (ED), Abscess Follow-up (ED) Additional Instructions: Your workup today was reassuring. Your CT scan was unremarkable. Your chest x-ray did not show a pneumonia. Please follow-up with your grated cheese maker, call tomorrow to make an appointment. You have an abscess on the back of your neck, please apply warm compresses 5-6 times per day. Take prescribed antibiotic as directed. Finish the entire course even if it resolves. If any new or worsening symptoms occur, including but not limited to worsening chest pain, shortness of breath, please return for re-evaluation. Tu examen de hoy fue tranquilizador. Go tomograf?a computarizada no fue nada especial. Go radiograf?a de t?rax no mostr? neumon?a. Por favor wilman un seguimiento con go cardi?logo, llame ma?riley para programar noah nai. Tiene un absceso en la parte posterior del jewel; aplique compresas tibias 5 a 6 veces al d?a. [place] el antibi?indiana recetado seg?n las indicaciones. Termina todo el curso incluso si se resuelve. Si se presenta alg?n s?ntoma nuevo o que empeora, incluidos, entre otros, un empeoramiento del dolor en el pecho y dificultad para respirar, regrese para noah reevaluaci?n. Prescriptions: New cephalexin 250 mg capsule 250 mg PO QID 7 Days Qty: 28 0RF doxycycline hyclate 100 mg capsule 100 mg PO BID 7 Days Qty: 14 0RF No Action Magic Mouthwash Diphen/Lido/Antacid 1:1:1 240 mL suspension 5 ml PO Q6-8H MDD 20 PRN (Reason: pain) Qty: 240 0RF Rx Instructions: Lidocaine Viscous 2 % 80mL; diphenhydramine 12.5 mg/5 mL 80mL; aluminum-mag hydrox-simeth [id number]/5mL 80mL Interventions: ED Discharge Assessment Last Done: 03/23/23 00:53 Discharge Date/Time: 03/23/23 00:53
--- NOTE | 2023-03-22 17:57 | ECG_ITS ---
Test Reason : CHEST PAIN Blood Pressure : / mmHG Vent. Rate : 064 BPM Atrial Rate : 064 BPM P-R Int : 140 ms QRS Dur : 086 ms QT Int : 412 ms P-R-T Axes : 016 -52 160 degrees QTc Int : 425 ms Normal sinus rhythm with sinus arrhythmia Left anterior fascicular block Anteroseptal infarct (cited on or before 12-SEP-2019) ST & T wave abnormality, consider lateral ischemia Abnormal ECG When compared with ECG of 04-MAR-2021 16:25, Questionable change in initial forces of Anterior leads T wave inversion more evident in Anterior leads Referred By: Steffi Rosenberg Electronically Signed By:SAHIL BERMUDEZ
[2023-03-22 18:30] LABS: Basophils Percent Auto 0.3 % (0-2); Hemoglobin 15.3 g/dl (14.0-18.0); Imm Gran Abs Auto 0.02 X10*3/uL (0.00-0.03); Imm Gran Pct Auto 0.3 % (0.0-0.4); MANUAL DIFF FLAG SCAN; PLT CLUMP 1; SCAN SMEAR FLAG 1
[2023-03-22 18:32] LABS: Eosinophils Absolute Auto 0.2 X10*3/uL (0.0-0.4); Eosinophils Percent Auto 2.9 % (0-4); Hematocrit 43.9 % (42.0-52.0); Lymphocytes Absolute Auto 1.6 X10*3/uL (1.2-4.9); Lymphocytes Percent Auto 26.7 % (20-40); Mean Corpuscular HGB Conc 34.9 g/dl (31.0-36.0); Mean Corpuscular Hemoglobin 29.3 pg (27.0-33.0); Mean Corpuscular Volume 83.9 fL (80.0-98.0); Mean Platelet Volume 11.8 fL (9.4-12.4); Monocytes Absolute Auto 0.4 X10*3/uL (0.1-1.2); Monocytes Percent Auto 6.5 % (2-11); Neutrophils Absolute Auto 3.9 x10*3/uL (2.0-8.3); Neutrophils Percent Auto 63.3 % (45-73); Red Blood Count 5.23 X10*6/uL (4.60-5.80); Red Cell Distribution Width 12.9 % (11.0-16.0)
[2023-03-22 18:35] LABS: Prothrombin Time 11.8 SEC (11.1-13.3)
[2023-03-22 18:47] LABS: Alanine Aminotransferase 11 U/L (0-40); Albumin Level 3.8 g/dL (3.5-5.0); Alkaline Phosphatase 109 U/L (39-117); Anion Gap 9 (12-20); Aspartate Amino Transferase 14 U/L (5-37); Bilirubin Direct 0.2 mg/dL (0.0-0.5); Bilirubin Total 0.7 mg/dL (0.0-1.0); Blood Urea Nitrogen 18 mg/dL (9-16); Calcium 9.4 mg/dL (8.4-10.2); Carbon Dioxide 31 mmol/L (22-29); Chloride 101 mmol/L (96-108); Creatinine Clr Calc Pharmacy 67.7; Estimated Glomerular Filt Rate > 60; Glucose Random 311 mg/dL (60-115); Magnesium 1.8 mg/dL (1.6-2.6); Potassium 4.3 mmol/L (3.3-5.1); Sodium 137 mmol/L (135-145); Total Protein 6.5 g/dL (6.5-8.0)
[2023-03-22 18:52] LABS: Platelet Count 146 X10*3/uL (160-400); White Blood Count 6.1 X10*3/uL (4.8-10.8)
[2023-03-22 18:53] LABS: SLIDE REVIEW VERIFIED
[2023-03-22 18:54] LABS: Troponin-I High Sensitivity 19.8 ng/L (<3.5-35.0)
[2023-03-22 21:15] VITALS: BP 152/78; PULSE 61; RESP 9; O2SAT 100
[2023-03-22 21:22] VITALS: PULSE 72
[2023-03-22 22:14] LABS: Troponin-I High Sensitivity 18.5 ng/L (<3.5-35.0)
[2023-03-22 23:40] VITALS: BP 140/66; PULSE 91; RESP 12; O2SAT 99
== END 2023-03-23 00:53 | disposition home or self-care (01) ==
PROVIDERS: Nurse Practitioner Family; Physician Assistant Medical; Emergency Provider Student in an Organized Health Care Education/Training Program
DX: R07.89 Other chest pain (principal); L02.811 Cutaneous abscess of head [any part, except face]; M54.50 Low back pain, unspecified; R51.9 Headache, unspecified; Z79.899 Other long term (current) drug therapy
CPT/HCPCS: 36415; 70450; 71046; 80048; 80076; 83735; 84484; 85025; 85610; 93005; 99284; 99285

== ENCOUNTER 2023-12-10 00:11 | Emergency (ER) | payer OTHER, SELFPAY ==
--- NOTE | ~2023-12-10 | XR_ITS ---
EXAMINATION: XR ABDOMEN KUB CLINICAL INDICATION: No bowel movement for 6 days. COMPARISON: None available. TECHNIQUE: AP view of the abdomen. FINDINGS: The bowel gas pattern is normal with no evidence of ileus or obstruction. There is scattered retained stool. No unusual soft tissue calcifications are noted. There is mild thoracolumbar disc degenerative change. XR/XR KUB IMPRESSION: Nonobstructive bowel gas pattern. Scattered retained stool.
[2023-12-10 00:26] VITALS: BP 144/73; BP 162/98; PULSE 76; PULSE 81; RESP 16; TEMP 36.9; O2SAT 96; O2SAT 99; BMI 25.1
--- NOTE | 2023-12-10 00:28 | MHC.EDTECH ---
Patient came in by ambulance,changed into hospital attire,vitals taken patient placed on the compliance monitor and blood sugar taken and is 402 RN Kinjal is aware
[2023-12-10 00:29] LABS: Glucose, Whole Blood 402 mg/dL (60-115)
--- NOTE | 2023-12-10 00:29 | ED_ITS ---
HPI - General Adult General Chief complaint: General Medical Stated complaint: constipated Time Seen by Provider: 12/10/23 00:24 Source: patient Mode of arrival: EMS Limitations: no limitations History of Present Illness HPI narrative: Patient comes here for constipation unable to move his bowels for about 1 week feels something hard in the rectum no nausea no vomiting blood sugar on arrival was 402 Related Data Previous Rx's ?Medication ?Instructions ?Recorded Magic Mouthwash 5 ml PO Q6-8H PRN pain #240 mL 03/04/21 Diphen/Lido/Antacid 1:1:1 240 mL suspension cephalexin 250 mg capsule 250 mg PO QID 7 days #28 caps 03/23/23 doxycycline hyclate 100 mg capsule 100 mg PO BID 7 days #14 caps 03/23/23 Allergies Allergy/AdvReac Type Severity Reaction Status Date / Time metformin [Metformin] Allergy Mild ? Verified 12/10/23 00:29 INTOLERANCE Review of Systems 2 Review of Systems: Yes all other systems are reviewed and are negative [facility] Past Medical History Medical History Heart attack Hypercholesterolemia HTN (hypertension) Diabetes Social History Social History Advance Directives: Yes Advance Directives Information Provided: No Advance Directives on File: No Do you have a plan to hurt others: No Plan Physical Exam ED Vital Signs: Vital Signs - 24 hr 12/10/23 00:26 12/10/23 01:53 12/10/23 02:55 Temperature 98.4 F 98.2 F 98.2 F Pulse Rate 76 73 73 Respiratory Rate 16 18 18 Blood Pressure 144/73 H 135/62 135/62 Pulse Oximetry 96 100 100 Oxygen Delivery Method Room Air Room Air Room Air BMI result Body Mass Index 25.1 Appearance: Alert. Oriented X3. No acute distress. Eyes: PERRLA, No Nystagmus ENT: Pharynx normal. Oral Mucosa moist Neck: Normal inspection. Neck supple. CVS: Normal heart rate and rhythm. Pulses normal. Respiratory: No respiratory distress. Equal air entry bilateral, no wheezing/rales/rhonchi Abdomen: Soft and nontender. Bowel sounds are present, no mass palpable, no CVA tenderness rectal: Semi solid stool in the rectal no blood Skin: Skin warm and dry. Normal skin color. Normal skin turgor. Extremities: No lower extremity edema. No calf tenderness Neuro: Oriented X 3. No motor deficit. Residual left-sided weakness Medications Administered Discontinued Medications Generic Name Dose Route Start Last Admin Trade Name Freq PRN Reason Stop Dose Admin Sodium Chloride 1,000 mls @ 999 mls/hr 12/10/23 01:51 12/10/23 03:08 Ns IV 12/10/23 02:51 Infused .Q1H1M ONE Infusion Insulin Human Lispro 10 unit 12/10/23 01:43 12/10/23 01:54 Insulin Lispro 100 Unit/Ml 3 Ml Vial SUBCUT 12/10/23 01:44 10 unit ONCE ONE Administration Magnesium Hydroxide 30 ml 12/10/23 02:21 12/10/23 02:54 Milk Of Magnesia 30 Ml Oral.Susp PO 12/10/23 02:22 30 ml ONCE ONE Administration Medical Decision Making Medical Decision Making MDM Narrative: Manual disimpaction done at patient has had a good bowel movement in the ER patient's blood sugar was elevated without any acidosis no anion gap insulin was given repeat blood sugar was 248 Lab Data 12/10/23 00:36 12/10/23 00:36 Labs: Lab Results 12/10/23 12/10/23 12/10/23 Range/Units 00:26 00:36 02:43 WBC 7.9 (4.8-10.8) X10*3/uL RBC 4.85 (4.60-5.80) X10*6/uL Hgb 14.2 (14.0-18.0) g/dl Hct 41.0 L (42.0-52.0) % MCV 84.5 (80.0-98.0) fL MCH 29.3 (27.0-33.0) pg MCHC 34.6 (31.0-36.0) g/dl RDW 12.8 (11.0-16.0) % Plt Count 218 D (160-400) X10*3/uL MPV 10.9 (9.4-12.4) fL Immature Gran % (Auto) 0.5 H (0.0-0.4) % Neut % (Auto) 75.4 H (45-73) % Lymph % (Auto) 18.1 L (20-40) % [place] % (Auto) 4.7 (2-11) % Eos % (Auto) 1.0 (0-4) % Baso % (Auto) 0.3 (0-2) % Lymph # (Auto) 1.4 (1.2-4.9) X10*3/uL [place] # (Auto) 0.4 (0.1-1.2) X10*3/uL Eos # (Auto) 0.1 (0.0-0.4) X10*3/uL Baso # (Auto) 0.0 (0.0-0.2) X10*3/uL Abs Immat Gran (auto) 0.04 H (0.00-0.03) X10*3/uL Absolute Neuts (auto) 6.0 (2.0-8.3) x10*3/uL Absolute Nucleated RBC 0.000 (0.0-0.012) X10*3/uL Nucleated RBC % (auto) 0.0 (0.0-0.2) /100WBC Sodium 138 (135-145) mmol/L Potassium 3.9 (3.3-5.1) mmol/L Chloride 101 (96-108) mmol/L Carbon Dioxide 26 (22-29) mmol/L Anion Gap 15 (12-20) BUN 19 H (9-16) mg/dL Creatinine 1.03 (0.5-1.4) mg/dL Estim Creat Clear Calc 66.8 Estimated GFR > 60 POC Glucose 402 H* 248 H (60-115) mg/dL Random Glucose 389 H* (60-115) mg/dL Calcium 9.3 (8.4-10.2) mg/dL Total Bilirubin 0.8 (0.0-1.0) mg/dL AST 18 (5-37) U/L ALT 18 (0-40) U/L Alkaline Phosphatase 133 H (39-117) U/L Total Protein 7.1 (6.5-8.0) g/dL Albumin 3.8 (3.5-5.0) g/dL Lipase 24 (8-78) U/L Beta-Hydroxybutyrate 0.70 H (0.02-0.27) mmol/L Independent Interpretation I performed an independent interpretation of an: Plain X-Ray Radiology Impression Discussion of test interpretation with radiology: I have reviewed the radiologist's reading. Discharge Plan Discharge Clinical Impression: Constipation Patient Disposition: Home, Self-Care Instructions: Constipation (ED) Additional Instructions: Continue stool softeners as prescribed by your PCP Drink plenty of fluids Prescriptions: No Action Magic Mouthwash Diphen/Lido/Antacid 1:1:1 240 mL suspension 5 ml PO Q6-8H MDD 20 PRN (Reason: pain) Qty: 240 0RF Rx Instructions: Lidocaine Viscous 2 % 80mL; diphenhydramine 12.5 mg/5 mL 80mL; aluminum-mag hydrox-simeth [id number]/5mL 80mL cephalexin 250 mg capsule 250 mg PO QID 7 Days Qty: 28 0RF doxycycline hyclate 100 mg capsule 100 mg PO BID 7 Days Qty: 14 0RF Interventions: ED Discharge Assessment Last Done: 12/10/23 02:55 Discharge Date/Time: 12/10/23 03:08 Print Language: Amharic
[2023-12-10 00:40] LABS: MANUAL DIFF FLAG NO
[2023-12-10 00:42] LABS: Basophils Percent Auto 0.3 % (0-2); Eosinophils Absolute Auto 0.1 X10*3/uL (0.0-0.4); Hemoglobin 14.2 g/dl (14.0-18.0); Imm Gran Abs Auto 0.04 X10*3/uL (0.00-0.03); Imm Gran Pct Auto 0.5 % (0.0-0.4); Lymphocytes Absolute Auto 1.4 X10*3/uL (1.2-4.9); Lymphocytes Percent Auto 18.1 % (20-40); Mean Corpuscular HGB Conc 34.6 g/dl (31.0-36.0); Mean Corpuscular Hemoglobin 29.3 pg (27.0-33.0); Mean Corpuscular Volume 84.5 fL (80.0-98.0); Mean Platelet Volume 10.9 fL (9.4-12.4); Monocytes Absolute Auto 0.4 X10*3/uL (0.1-1.2); Monocytes Percent Auto 4.7 % (2-11); Neutrophils Percent Auto 75.4 % (45-73); Platelet Count 218 X10*3/uL (160-400); Red Blood Count 4.85 X10*6/uL (4.60-5.80); Red Cell Distribution Width 12.8 % (11.0-16.0); White Blood Count 7.9 X10*3/uL (4.8-10.8)
--- OUTSIDE RECORDS SUMMARY | 2023-12-10 00:43 | XMS_ITS | Continuity of Care Document ---
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 Role Phone Claire Trujillo MD Primary Care Physician [phone] Encounter [facility] Date(s): 02/28/23 - 03/30/[address] [address]- Allergies, Adverse Reactions, Alerts Substance Reaction Severity Status metFORMIN 1 GI symptoms Active 1GI intolreance Immunizations Given and Recorded Vaccine Date Status Refusal Reason SARS-CoV-2 mRNA (edpazjb-[id number]) vax 03/03/22 Given SARS-CoV-2 mRNA (kpoujch-icut-rarcz) vax 08/27/21 Given SARS-CoV-2 (COVID-19) mRNA BNT-162b2 vac 11/09/20 Recorded SARS-CoV-2 (COVID-19) mRNA BNT-162b2 vac 10/18/20 Recorded influenza virus vaccine, inactivated 1 04/20/20 Gi corwin influenza virus vaccine, inactivated 04/17/19 Give n influenza virus vaccine, inactivated 06/22/16 Give n influenza virus vaccine, inactivated 11/01/15 Give n influenza virus vaccine, inactivated 04/10/11 Melo rded hepatitis B adult vaccine 04/17/19 Given hepatitis B adult vaccine 11/08/17 Given hepatitis B adult vaccine 10/29/14 Recorded tetanus/diphtheria/pertussis, acel(Tdap) 01/11/17 Given pneumococcal 23-valent vaccine 01/11/17 Given pneumococcal 23-valent vaccine 05/22/02 Recorded tetanus-diphtheria toxoids (Td) 01/30/05 Recorded 1Early/Late Reason: Med Not Available Medications Abdominal binder for treatment of orthostatic hypotension Abdominal binder for treatment of orthostatic hypotension, See Instructions, # 1 each, Refills 1, Tot. Refills 1, Maintenance, Dispense 2 pairs ALEIDA 99; Dx I 95.1; G99. 0 Ht 164cm Wt 88.2kg BMI 32 [facility], 05/04/22 13:56:00 EDT, Supply Start Date: 05/04/22 Status: Ordered Alcohol Pads See Instructions, # 100 each, Refills 11, Tot. Refills 11, Maintenance, To test 3 times a day and with symptoms Dx: T2DM ICD10: E11.9 duration: 52 weeks, 05/04/22 10:24:00 EDT, Compound, 164, cm, 05/04/22 9:09:00 EDT, Height, 87.5, kg, 02/10/21 9:0... Start Date: 05/04/22 Status: Ordered ammonium lactate 12% topical lotion 1 application, Topically, Daily, use daily to the intact skin legs daily DO NOT apply to open wounds DO NOT, # 225 Gm, 0 Refills, Maintenance, 11/27/22 11:10:00 EDT, [facility] upon patient request if the prescri... Start Date: 11/27/22 Status: Ordered aspirin 81 mg oral delayed release tablet 81 mg, 1, tablet, By Mouth, Daily, blood thinner/ hace la leonard mas cullen - para proteger el paty/ arterias tapadas en el paty, # 30 tablet, Refills 11, Tot. Refills 11, Maintenance, 05/04/22 10:23:00 EDT, [facility] Start Date: 05/04/22 Status: Ordered bed liners bed liners, See Instructions, # 60 each, Refills 11, Tot. Refills 11, Maintenance, dx: incontinence, T1DM icd10: N31.9 duration: 99 weeks, 03/13/22 12:19:00 EDT, Supply Start Date: 03/13/22 Status: Ordered blood pressure cuff blood pressure cuff, See Instructions, PRN Pain , Mild, # 1 each, Refills 0, Tot. Refills 0, Maintenance, for medication titration dx: essential hypertension ICD10: I10 duration: 52 weeks, 06/08/20 13:21:00 EST, Supply Start Date: 06/08/20 Status: Ordered box adult wipes box adult wipes, See Instructions, # 2 each, Refills 0, Tot. Refills 0, Maintenance, dx: fecal incontinence, T2DM ICD10: R15 duration: 99, 01/19/23 14:49:00 EDT, Supply Start Date: 01/19/23 Status: Ordered cane with arm rest cane with arm rest, See Instructions, # 1 each, Refills 0, Tot. Refills 0, Maintenance, dx: T2DM with severe diabetic neuropathy ICD10: E11.40 duration: 99, 03/21/23 15:04:00 EDT, Supply Start Date: 03/21/23 Status: Ordered capsaicin 0.025% topical cream 1 application, Topically, 3 times a day, PRN Pain , Moderate, Apply to legs for diabetic neuropathy. Israeli sig, # 60 Gm, 1 Refills, Maintenance, 06/06/22 9:44:00 EST, Cream, [facility], Partial fill upon patient request if the presc... Start Date: 06/06/22 Status: Ordered Compression stockings, thigh-high Compression stockings, thigh-high, See Instructions, # 2 each, Refills 1, Tot. Refills 1, Maintenance, Grade II: 20-30mmHg Dispense 2 pairs ALEIDA 99; Dx I 95.1; G99. 0 Ht 164cm Wt 88.2kg BMI 32 Fax to [facility], 05/04/22 13:55:00 EDT, Supply Start Date: 05/04/22 Status: Ordered disinfectant wipes disinfectant wipes, See Instructions, # 100 each, Refills 11, Tot. Refills 11, Maintenance, dx: incontinence, T1DM ICD10: N31.9 duration: , 03/13/22 12:20:00 EDT, Supply Start Date: 03/13/22 Status: Ordered docusate sodium 100 mg oral capsule 100 mg, 1, capsule, By Mouth, 2 times a day, PRN, # 60 capsule, Refills 1, Tot. Refills 1, Maintenance, for constipation, 01/04/23 15:22:00 EDT, Route to Pharmacy Electronically, [facility], Partial fill upon patient request if the pre... Start Date: 01/04/23 Stop Date: 03/05/23 Status: Ordered Flomax 0.4 mg oral capsule 0.8 mg, 2, capsule, By Mouth, Daily, # 180 capsule, Refills 0, Tot. Refills 0, Maintenance, 10/16/22 13:34:00 EDT, Route to Pharmacy Electronically, [facility], Partial fill upon patient request if the prescription is for a schedule II... Start Date: 10/16/22 Stop Date: 01/14/23 Status: Ordered FreeStyle Vladislav 2 Monitor See Instructions, # 1 each, Maintenance, apply one sensor every 14 days; check glucose qid;E11.65, 11/06/22 16:13:00 EDT, Supply, 165, cm, 09/04/22 13:02:00 EST, Height, 84.2, kg, 05/21/22 0:51:00 EDT, Dry Weight Start Date: 11/06/22 Status: Ordered FreeStyle Vladislav 2 Sensors See Instructions, # 2 each, Refills 11, Tot. Refills 11, Maintenance, apply one sensor every 14 days; check glucose qid;E11.65, 11/03/22 16:47:00 EDT, Supply, 165, cm, 09/04/22 13:02:00 EST, Height, 84.2, kg, 05/21/22 0:51:00 EDT, Dry Weight Start Date: 11/03/22 Status: Ordered Freestyle Lite Lancets See Instructions, # 100 each, Refills 11, Tot. Refills 11, Maintenance, Use to check sugar once perday in the morning before eating. Utilize para chequear la azucar noah vez al d miguel antes de comer (en ayunas)., 11/23/22 14:10:00 EDT, Supply, 165,... Start Date: 11/23/22 Status: Ordered Freestyle Lite Monitor See Instructions, # 1 each, Maintenance, to test blood sugar up to 4 times per day dx: T2DM ICD10: E11.6 duration: 99, 03/01/23 8:43:00 EDT, Supply, 165, cm, 01/19/23 13:42:00 EDT, Height, 84.2, kg, 05/21/22 0:51:00 EDT, Dry Weight Start Date: 03/01/23 Status: Ordered Freestyle Lite Test Strips See Instructions, # 100 each, Refills 11, Tot. Refills 11, Maintenance, Use to check sugar once perday in the morning before eating. Utilize para chequear la azucar noah vez al d miguel antes de comer (en ayunas)., 11/23/22 14:10:00 EDT, Supply, 165,... Start Date: 11/23/22 Status: Ordered Hand Held Shower Head Hand Held Shower Head, See Instructions, # 1 each, Refills 0, Tot. Refills 0, Maintenance, diagnosis: diabetic neuropathy, T1DM. ICD10: E10.42 duration: 99 weeks. Fax to Cheryl ([facility]), 05/11/21 11:23:00 EDT, Supply Start Date: 05/11/21 Status: Ordered Home blood pressure monitor Home blood pressure monitor, See Instructions, # 1 each, Refills 0, Tot. Refills 0, Maintenance, ICD 10 I95.1; E11. 43 ALEIDA: [facility] 12:53:00 EST, Supply Start Date: 05/25/22 Status: Ordered HumaLOG KwikPen 100 units/mL injectable solution See Instructions, Mealtime insulin; dose according to finger stick before meals FS 100-199: 5 unitsFS: 200-249: 6 units FS 250-299: 7 units FS above 300: 8 units, # 15 mL, 11 Refills, 06/01/22 10:46:00 EST, [facility]., 165, cm... Start Date: 06/01/22 Status: Ordered Jardiance 25 mg oral tablet 1 tablet = 25 mg, By Mouth, Daily in AM, # 30 tablet, 5 Refills, Maintenance, 11/08/22 15:44:00 EDT, [facility]., Partial fill upon patient request if the prescription is for a schedule II opioid drug., 165, cm, 09/04/22 13:02:00 EST, H... Start Date: 11/08/22 Stop Date: 05/07/23 Status: Ordered Lantus Solostar Pen 100 units/mL subcutaneous solution = 23 units, Subcutaneous Injection, Daily at bedtime, Insulina de 24 horas., # 15 mL, 11 Refills, Maintenance, 01/02/23 13:26:00 EDT, [facility] increase in dose, 165, cm,01/02/23 13:02:00 EDT, Height, 84.2, kg, 05/21/22 0... Start Date: 01/02/23 Stop Date: 12/28/23 Status: Ordered Lipitor 80 mg oral tablet 1 tablet = 80 mg, By Mouth, Daily at bedtime, para colesterol / proteger el paty/ arterias tapadas en el paty, # 30 tablet, 11 Refills, Maintenance, 05/04/22 10:23:00 EDT, Tablet, [facility], Partial fill upon patient request, 16... Start Date: 05/04/22 Stop Date: 04/29/23 Status: Ordered medical alert system medical alert system, See Instructions, # 1 each, Refills 0, Tot. Refills 0, Maintenance, dx: T2DM with severe neuropathy, frequent falls ICD10: E11.40 duration: 99, 05/04/22 14:02:00 EDT, Supply Start Date: 05/04/22 Status: Ordered metoprolol 50 mg oral tablet, extended release 50 mg, 1, tablet, By Mouth, Daily at bedtime, para proteger el paty/ prevenir palpitaciones Bebaantes de acostarse., # 30 tablet, Refills 11, Tot. Refills 11, Maintenance, 05/04/22 10:27:00 EDT, Route to Pharmacy Electronically, [facility]... Start Date: 05/04/22 Status: Ordered nortriptyline 10 mg oral capsule See Instructions, GEORGE 1 CAPSULA POR LA BOCA CADA MIGUEL A LA HORA DE DORMIR *NUEVO MEDICAMENTO PARA DOLOR NEUROPATICO. NO GEORGE JUNTO CON TRAZODONE-PUEDE CAUSAR SEDACION*, # 30 capsule, Refills 5, Tot. Refills 5, Maintenance, 10/16/22 13:34:00 EDT, Ins... Start Date: 10/16/22 Status: Ordered one pair Diabetic Shoes with Inserts one pair Diabetic Shoes with Inserts, See Instructions, # 1 each, Refills 0, Tot. Refills 0, Maintenance, Wear for diabetic foot care. Diagnosis: Type II DM, ICD10 E11.65., 11/23/22 15:25:00 EDT, Supply Start Date: 11/23/22 Status: Ordered oxyCODONE 5 mg oral tablet 5 mg, 1, tablet, By Mouth, Every 6 hours, PRN, for 28 days, # 112 tablet, Refills 0, Tot. Refills 0, Acute 04/06/23 8:32:00 EDT, for pain, 03/09/23 8:32:00 EDT, [facility], [facility] fill upon patient re... Start Date: 03/09/23 Stop Date: 04/06/23 Status: Ordered pullups - adult size medium pullups - adult size medium, See Instructions, # 60 each, Refills 11, Tot. Refills 11, Maintenance,dx: incontinence, T1DM icd10: N31.9 duration: 99 weeks note size change, 01/08/23 15:13:00 EDT, Supply Start Date: 01/08/23 Status: Ordered raised toilet seat raised toilet seat, See Instructions, # 1 each, Refills 0, Tot. Refills 0, Maintenance, dx: autonomic neuropathy, frequent falls ICD10: G99.0 duration: 99, 05/26/22 9:07:00 EST, Supply Start Date: 05/26/22 Status: Ordered rollator walker w/ 4 wheels, seat and brakes rollator walker w/ 4 wheels, seat and brakes, See Instructions, # 1 each, Refills 0, Tot. Refills 0, Maintenance, dx: diabetes with neuropathy ICD10: E11.40 duration: 99 weeks height: 164cm weight: 93kg, 11/21/21 16:40:00 EDT, sent to [facility]. Start Date: 11/21/21 Status: Ordered shower bars shower bars, See Instructions, # 2 each, Refills 0, Tot. Refills 0, Maintenance, dx: T1DM with severe neuropathy ICD10: E10.40 duration: 52 weeks, 06/03/20 11:27:00 EST, Supply Start Date: 06/03/20 Status: Ordered shower chair shower chair, See Instructions, # 1 each, Refills 0, Tot. Refills 0, Maintenance, diagnosis: diabetic neuropathy, T1DM ICD10: E10.42 duration: 99 weeks, 01/13/20 14:32:00 EDT, Supply Start Date: 01/13/20 Status: Ordered shower chair shower chair, See Instructions, # 1 each, Refills 0, Tot. Refills 0, Maintenance, dx: autonomic neuropathy, frequent falls ICD10: G99.0 duration: 99, 05/26/22 9:07:00 EST, Supply Start Date: 05/26/22 Status: Ordered toilet seat toilet seat, See Instructions, # 1 each, Refills 0, Tot. Refills 0, Maintenance, to reduce risk of falls dx: diabetic neuropathy ICD10: E11.40 duration: 52 weeks, 06/03/20 11:25:00 EST, Supply Start Date: 06/03/20 Status: Ordered walker with wheels and brakes walker with wheels and brakes, See Instructions, # 1 each, Refills 0, Tot. Refills 0, Maintenance, dx: diabetic neuropathy, T1DM ICD10: E10.42 duration: 99 weeks, 06/03/20 11:27:00 EST, Supply Start Date: 06/03/20 Status: Ordered Problem List Condition Confirmation Course Effective Dates Status H ealth Status Informant Diabetic autonomic neuropathy Confirmed Active CAD (coronary artery disease) Confirmed Active Diabetic peripheral neuropathy Confirmed Active Diabetic nephropathy Confirmed Active Dysphagia Confirmed Active Hallucinations Confirmed Active Hypertension Confirmed Active Ischemic cardiomyopathy EF 40% 04/2022; akinetic apex Confirmed Active Anxiety and depression Confirmed Active Orthostatic hypotension - severe, resulting in recurrent falls Confirmed Active Thrombocytopenia Confirmed Active TIA (transient ischemic attack) Confirmed Active T2DM (type 2 diabetes mellitus) Confirmed Active Social History Social History Type Response Smoking Status Never (less than 100 in lifetime) entered on: 06/19/19 Sex Patient Care team information Care Team Personnel Name: Sorin Moser RN Position: S RN Member Role: Primary Care Nurse Name: Brandi Wei RN Position: S RN Member Role: Primary Care Nurse Name: Ya Collier RN Position: S RN Member Role: Primary Care Nurse Name: Valentina Leiva RN Position: [facility] SN RN Member Role: Primary Care Nurse Name: Macarena Bedolla Position: [facility] Outreach Member Role: Lifetime Consulting Physician Name: Abigail Nuno RN Position: [facility] Onco RN Member Role: Primary Care Nurse Name: Claire Trujillo MD Position: [facility] Physician - Primary Care Member Role: PCP Address: Address: [address] [place] [id number] Name: Heidi Dao Position: [facility] RN Member Role: Primary Care Nurse Care Team Related Persons Name: JOEL BRIZUELA Address: home [address] [place] [id number]
--- OUTSIDE RECORDS SUMMARY | 2023-12-10 00:43 | XMS_ITS | Continuity of Care Document ---
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 Role Phone Claire Trujillo MD Primary Care Physician [place] [facility] [place] 01/03/21 - 02/02/21 [facility] [address] [place] [id number] Attending Physician: AdmUche sheth Admitting Physician: Admtr, Ar8 Referring Physician: Admtr, Ar8 Allergies, Adverse Reactions, Alerts Substance Reaction Severity Status metFORMIN 1 GI symptoms Active 1GI intolreance Immunizations Given and Recorded Vaccine Date Status Refusal Reason influenza virus vaccine, inactivated 1 04/20/20 Gi corwin influenza virus vaccine, inactivated 04/17/19 Give n influenza virus vaccine, inactivated 06/22/16 Give n influenza virus vaccine, inactivated 11/01/15 Give n hepatitis B adult vaccine 04/17/19 Given hepatitis B adult vaccine 11/08/17 Given tetanus/diphtheria/pertussis, acel(Tdap) 01/11/17 Given pneumococcal 23-valent vaccine 01/11/17 Given Not Given Vaccine Date Status Refusal Reason pneumococcal 23-valent vaccine 12/13/13 Not Given Patient Refuses 1Early/Late Reason: Med Not Available Medications Alcohol Pads See Instructions, # 11 each, Maintenance, To test 3 times a day and with symptoms Dx: T2DM ICD10: E11.9 duration: 52 weeks, 08/29/19 14:35:00 EST, Compound, 165, cm, 07/21/19 14:31:00 EST, Height, 91, kg, 06/19/19 16:55:00 EST, Dry Weight Start Date: 08/29/19 Status: Ordered ALCOHOL PADS 70% PAD ALCOHOL PADS 70% PAD, See Instructions, # 100 each, 11 Refills, Maintenance, USE TO CHECK BLOOD SUGAR 3 TIMES A DAY FOR TYPE 1 DIABETES MELLITUS , 163, cm, 04/21/20 22:04:00 EDT, Height, 91, kg, 04/19/20 23:16:00 EDT, Dry Weight Start Date: 10/03/20 Status: Ordered Aspirin Low Dose 81 mg oral delayed release tablet 1 tablet, By Mouth, Daily, # 90 tablet, 3 Refills, Maintenance, 12/27/20 8:42:00 EDT, [facility], 163, cm, 04/21/20 22:04:00 EDT, Height, 91, kg, 04/19/20 23:16:00 EDT, Dry Weight Start Date: 12/27/20 Status: Ordered bed liners bed liners, See Instructions, # 60 each, Refills 11, Tot. Refills 11, Maintenance, dx: incontinence, T1DM icd10: N31.9 duration: 99 weeks, 11/09/20 10:51:00 EDT, Supply Start Date: 11/09/20 Status: Ordered blood pressure cuff blood pressure cuff, See Instructions, PRN Pain , Mild, # 1 each, Refills 0, Tot. Refills 0, Maintenance, for medication titration dx: essential hypertension ICD10: I10 duration: 52 weeks, 06/08/20 13:21:00 EST, Supply Start Date: 06/08/20 Status: Ordered briefs - adult size large briefs - adult size large, See Instructions, # 60 each, Refills 0, Tot. Refills 0, Maintenance, dx:incontinence, T1DM icd10: N31.9 duration: 99 weeks, 11/09/20 10:52:00 EDT, Supply Start Date: 11/09/20 Status: Ordered calcium (as carbonate)-vitamin D 500 mg-400 intl units oral tablet 1 tablet, By Mouth, 2 times a day, # 60 tablet, 5 Refills, Maintenance, 02/02/21 17:08:00 EDT, [facility], 30, 1 tablet By Mouth 2 times a day, 163, cm, 01/03/21 10:40:00 EDT, Height, 91, kg, 04/19/20 23:16:00 EDT, Dry Weight Start Date: 02/02/21 Status: Ordered Diabetic Shoes with Inserts Diabetic Shoes with Inserts, See Instructions, # 2 each, Refills 0, Tot. Refills 0, Maintenance, Wear for diabetic foot care. Diagnosis: Type II DM, ICD10 E11.65. Fax to [facility], 10/28/20 14:47:00 EDT, Supply Start Date: 10/28/20 Status: Ordered FLUoxetine 20 mg oral capsule 1, capsule, By Mouth, Daily, # 90 capsule, Refills 3, Tot. Refills 3, Maintenance, 11/05/19 18:38:00 EDT, Route to Pharmacy Electronically, [facility], 165, cm, 07/21/19 14:31:00 EST, Height, 91,kg, 06/19/19 16:55:00 EST, Dry Weight Start Date: 11/05/19 Stop Date: 10/30/20 Status: Ordered FREESTYLE SHELLIE LITE See Instructions, # 100 each, Refills 10 Tot. Refills 10, USE TO CHECK BLOOD SUGARS 3 TIMES A DAY WITH MEALS PLUS 1 MORE TIME NEEDED FOR SYMPTOMS, [facility] Start Date: 04/21/19 Status: Ordered FREESTYLE LANCETS 100CT See Instructions, # 100 each, Refills 11 Tot. Refills 11, USE DIRECTED FOR TYPE 1 DIABETES, KEVIN,[facility] Start Date: 03/18/19 Status: Ordered Freestyle Vladislav 14 day Sensor Freestyle Vladislav 14 day Sensor, See Instructions, # 2 each, Refills 11, Tot. Refills 11, Maintenance, to test 4-5 times per day diagnosis: T1DM ICD10: E10.9 duration: 99 weeks, 01/13/20 14:20:00 EDT, Supply, 165, cm, 01/12/20 16:41:00 EDT, Height, 9... Start Date: 01/13/20 Status: Ordered FREESTYLE VLADISLAV 14 DAY SENSOR FREESTYLE VLADISLAV 14 DAY SENSOR, See Instructions, # 2 each, 11 Refills, Maintenance, to test blood glucose levels 3-4 times per day dx: T1DM ICD10: E10.9 duration: 99 weeks, 01/07/20 12:24:00 EDT, 165, cm, 07/21/19 14:31:00 EST, Height, 91, kg, 12/0... Start Date: 01/07/20 Status: Ordered Freestyle Vladislav Monitor See Instructions, # 1 each, Maintenance, for monitoring blood sugar Dx: T1DM ICD10: E10.43 duration: 99 weeks, 01/21/20 15:37:00 EDT, Supply, 165, cm, 01/12/20 16:41:00 EDT, Height, 91, kg, 06/19/19 16:55:00 EST, Dry Weight Start Date: 01/21/20 Stop Date: 02/20/20 Status: Ordered Freestyle Vladislav Sensor 14 day Freestyle Vladislav Sensor 14 day, See Instructions, # 2 each, Refills 11, Tot. Refills 11, Maintenance, apply one sensor every 14 days; check glucose qid;E11.65, 10/07/20 16:19:00 EDT, Compound, 163, cm, 04/21/20 22:04:00 EDT, Height, 91, kg, 04/19/20 23... Start Date: 10/07/20 Status: Ordered gabapentin 300 mg oral capsule 1, capsule, By Mouth, 2 times a day, # 60 capsule, Refills 11, Tot. Refills 0, Maintenance, 01/06/21 12:38:00 EDT, Route to Pharmacy Electronically, [facility], 163, cm, 01/03/21 10:40:00 EDT, Height, 91, kg, 04/19/20 23:16:00 EDT, Dry Weight Start Date: 01/06/21 Status: Ordered Hand Held Shower Head Hand Held Shower Head, See Instructions, # 1 each, Refills 0, Tot. Refills 0, Maintenance, diagnosis: diabetic neuropathy, T1DM. ICD10: E10.42 duration: 99 weeks. Fax to Cheryl ([facility]), 10/28/20 14:53:00 EDT, Supply Start Date: 10/28/20 Status: Ordered HumaLOG KwikPen 100 units/mL injectable solution See Instructions, INJECT UNDER THE SKIN DIRECTED. FOUR UNITS IF BS OVER 120 ,6 UNITS IF BS AT 200 ,8 UNITS IF BS AT 300, 12 UNITS IF BS 400 THREE TIMES DAILY BEFORE MEALS. MAXIMUM 60 UNITS / DAY, # 15 mL, 11 Refills, Maintenance, [facility], 16... Start Date: 10/25/20 Status: Ordered isosorbide mononitrate 30 mg oral tablet, extended release 1 tablet = 30 mg, By Mouth, Daily in AM, for 30 days, # 30 tablet, 11 Refills, Hard Stop 02/17/21 12:51:00 EDT, 02/23/20 12:51:00 EDT, [facility], 165, cm, 01/12/20 16:41:00 EDT, Height, 91, kg, 06/19/19 16:55:00 EST, Dry Weight Start Date: 02/23/20 Stop Date: 02/17/21 Status: Ordered isosorbide mononitrate 60 mg oral tablet, extended release 60 mg, 1, tablet, By Mouth, Daily in AM, # 90 tablet, Refills 3, Tot. Refills 3, Maintenance, 01/03/21 10:57:00 EDT, Route to Pharmacy Electronically, [facility], Partial fill upon patient request if the prescription is for a schedule II opioid . Start Date: 01/03/21 Status: Ordered Lantus Solostar Pen 100 units/mL subcutaneous solution = 15 units, Subcutaneous Injection, Daily at bedtime, # 9 mL, 2 Refills, Maintenance, 05/07/20 13:08:00 EDT, Injection, [facility], 163, cm, 04/21/20 22:04:00 EDT, Height, 91, kg, 04/19/20 23:16:00 EDT, Dry Weight Start Date: 05/07/20 Stop Date: 08/05/20 Status: Ordered Lipitor 80 mg oral tablet 1 tablet = 80 mg, By Mouth, Daily at bedtime, # 90 tablet, 3 Refills, Maintenance, 06/09/20 13:06:00 EST, Tablet, [facility], Partial fill upon patient request, 163, cm, 04/21/20 22:04:00 EDT, Height, 91, kg, 04/19/20 23:16:00 EDT, Dry Weight Start Date: 06/09/20 Stop Date: 06/04/21 Status: Ordered lisinopril 10 mg oral tablet 1, tablet, By Mouth, Daily, # 90 tablet, Refills 1, Tot. Refills 1, Maintenance, 10/30/20 18:37:00 EDT, Route to Pharmacy Electronically, [facility], 163, cm, 04/21/20 22:04:00 EDT, Height, 91, kg, 04/19/20 23:16:00 EDT, Dry Weight Start Date: 10/30/20 Stop Date: 04/28/21 Status: Ordered rollator walker w/ 4 wheels, seat and brakes rollator walker w/ 4 wheels, seat and brakes, See Instructions, # 1 each, Refills 0, Tot. Refills 0, Maintenance, dx: diabetes with neuropathy ICD10: E11.40 duration: 99 weeks height: 163 cm weight: 91kg, 08/26/20 16:56:00 EST[facility] Start Date: 08/26/20 Status: Ordered shower bars shower bars, See [...] EDT, Supply Start Date: 01/13/20 Status: Ordered toilet seat toilet seat, See Instructions, # 1 each, Refills 0, Tot. Refills 0, Maintenance, to reduce risk of falls dx: diabetic neuropathy ICD10: E11.40 duration: 52 weeks, 06/03/20 11:25:00 EST, Supply Start Date: 06/03/20 Status: Ordered Toprol XL 50 mg oral tablet, extended release 75 mg, 1.5, tablet, By Mouth, Daily, # 90 tablet, Refills 3, Tot. Refills 3, Maintenance, 01/03/21 10:57:00 EDT, Route to Pharmacy Electronically, [facility], Partial fill upon patient request ifthe prescription is for a schedule II opioid drug.,... Start Date: 01/03/21 Status: Ordered traZODone 50 mg oral tablet 1, tablet, By Mouth, Daily at bedtime, PRN, # 30 tablet, Refills 5, Tot. Refills 0, Maintenance, ASNEEDED FOR SLEEP, 01/05/21 15:11:00 EDT, Route to Pharmacy Electronically, [facility], 163, cm,01/03/21 10:40:00 EDT, Height, 91, kg, 04/19/20 23:... Start Date: 01/05/21 Status: Ordered walker with wheels and brakes walker with wheels and brakes, See Instructions, # 1 each, Refills 0, Tot. Refills 0, Maintenance, dx: diabetic neuropathy, T1DM ICD10: E10.42 duration: 99 weeks, 06/03/20 11:27:00 EST, Supply Start Date: 06/03/20 Status: Ordered Problem List Condition Effective Dates Status Health Status Inform ant Diabetic peripheral neuropathy(Confirmed) Active Diabetic nephropathy(Confirmed) Active Dysphagia(Confirmed) Active Hallucinations(Confirmed) Active Hypertension(Confirmed) Active Ischemic cardiomyopathy EF 3 0-35% on Echo 12/2018(Confirmed) Active Anxiety and depression(Confirmed) Active Care coordination [facility]N-[facility]CP C are Management Bre Skinner, CC [phone](Confirmed) 02/02/19 Active Thrombocytopenia(Confirmed) Active Type 1 diabetes mellitus(Confirmed) Active Social History Social History Type Response Smoking Status Never (less than 100 in lifetime) entered on: 06/19/19 Sex
--- OUTSIDE RECORDS SUMMARY | 2023-12-10 00:43 | XMS_ITS | Continuity of Care Document ---
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 Phone Claire Trujillo MD Primary Care Physician Encounter [facility] Date(s): 06/04/20 - 07/04/[address] [id number] Allergies, Adverse Reactions, Alerts Substance Reaction Severity Status NKA Active Immunizations Given and Recorded Vaccine Date Status [...] Refuses 1Early/Late Reason: Med Not Available Medications Admelog SoloStar 100 units/mL injectable solution See Instructions, take before meals (three times a day) per sliding scale 4 units if over 120; 6 at200; 8 at 300; 12 if 400 max 60 units/ day, # 6 mL, 2 Refills, Maintenance, 06/23/20 16:02:00 EST, Injection, [facility], 163, cm, 04/21/20 22:... Start Date: 06/23/20 Status: Ordered Alcohol Pads See Instructions, # 11 each, Maintenance, To test 3 times a day and with symptoms Dx: T2DM ICD10: E11.9 duration: 52 weeks, 08/29/19 14:35:00 EST, Compound, 165, cm, 07/21/19 14:31:00 EST, Height, 91, kg, 06/19/19 16:55:00 EST, Dry Weight Start Date: 08/29/19 Status: Ordered Aspirin Enteric Coated 81 mg oral delayed release tablet See Instructions, TAKE ONE TABLET BY MOUTH DAILY, # 90 tablet, 1 Refills, Soft Stop, 06/30/20 18:54:00 EST, [facility], 163, cm, 04/21/20 22:04:00 EDT, Height, 91, kg, 04/19/20 23:16:00 EDT, Dry Weight Start Date: 06/30/20 Status: Ordered blood pressure cuff blood pressure cuff, See Instructions, PRN Pain , Mild, # 1 each, Refills 0, Tot. Refills 0, Maintenance, for medication titration dx: essential hypertension ICD10: I10 duration: 52 weeks, 06/08/20 13:21:00 EST, Supply Start Date: 06/08/20 Status: Ordered FLUoxetine 20 mg oral capsule 1, capsule, By Mouth, Daily, # 90 capsule, Refills 3, Tot. Refills 3, Maintenance, 11/05/19 18:38:00 EDT, Route to Pharmacy Electronically, [facility], 165, cm, 07/21/19 14:31:00 EST, Height, 91,kg, 06/19/19 16:55:00 EST, Dry Weight Start Date: 11/05/19 Stop Date: 10/30/20 Status: Ordered FREESTYLE SHELLIE LITE See Instructions, # 100 each, Refills 10 Tot. Refills 10, USE TO CHECK BLOOD SUGARS 3 TIMES A DAY WITH MEALS PLUS 1 MORE TIME NEEDED FOR SYMPTOMS, [facility] Start Date: 04/21/19 Status: Ordered FREESTYLE LANCETS 100CT See Instructions, # 100 each, Refills 11 Tot. Refills 11, USE DIRECTED FOR TYPE 1 DIABETES, KEVIN,[facility] Start Date: 03/18/19 Status: Ordered Freestyle [...] 01/21/20 Stop Date: 02/20/20 Status: Ordered Freestyle Lite Lancets See Instructions, # 600 each, Refills 3, Tot. Refills 3, Maintenance, use as directed for Type 1 Diabetes Mellitus test 4-5 times a day dx: T1DM with microvascular complications ICD10: E10.59 duration: 52 weeks, 02/05/20 12:56:00 EDT, Supply, 165... Start Date: 02/05/20 Stop Date: 01/30/21 Status: Ordered Freestyle Lite Test Strips See Instructions, # 100 each, Refills 11, Tot. Refills 11, Maintenance, use as directed for Type 1 Diabetes Mellitus - test 4x per day dx: T1DM ICD10: E10.43 duration: 52 weeks, 01/21/20 15:32:00 EDT, Supply, 165, cm, 01/12/20 16:41:00 EDT, Height,... Start Date: 01/21/20 Stop Date: 01/15/21 Status: Ordered gabapentin 300 mg oral capsule 300 mg, 1, capsule, By Mouth, 2 times a day, for 30 days, # 60 capsule, Refills 11, Tot. Refills 11, Hard Stop 07/22/20 15:59:00 EST, 07/28/19 15:59:00 EST, Route to Pharmacy Electronically, [facility], 165, cm, 07/21/19 14:31:00 EST, Height, 91,... Start Date: 07/28/19 Stop Date: 07/22/20 Status: Ordered isosorbide mononitrate 30 mg oral tablet, extended release 1 tablet = 30 mg, By Mouth, Daily in AM, # 30 tablet, 11 Refills, Maintenance, 02/23/20 12:51:00 EDT, [facility], 165, cm, 01/12/20 16:41:00 EDT, Height, 91, kg, 06/19/19 16:55:00 EST, Dry Weight Start Date: 02/23/20 Stop Date: 02/17/21 Status: Ordered Lantus Solostar Pen 100 units/mL subcutaneous solution = 15 units, Subcutaneous Injection, Daily at bedtime, # 9 mL, 2 Refills, Maintenance, 05/07/20 13:08:00 EDT, Injection, [facility], 163, cm, 04/21/20 22:04:00 EDT, Height, 91, kg, 04/19/20 23:16:00 EDT, Dry Weight Start Date: 05/07/20 Stop Date: 08/05/20 Status: Ordered Lipitor 80 mg oral tablet 1 tablet = 80 mg, By Mouth, Daily at bedtime, # 90 tablet, 3 Refills, Maintenance, 06/09/20 13:06:00 EST, Tablet, [facility], Partial fill upon patient request, 163, cm, 04/21/20 22:04:00 EDT, Height, 91, kg, 04/19/20 23:16:00 EDT, Dry Weight Start Date: 06/09/20 Stop Date: 06/04/21 Status: Ordered lisinopril 10 mg oral tablet 1, tablet, By Mouth, Daily, # 90 tablet, Refills 3, Tot. Refills 3, Maintenance, 11/05/19 18:37:00 EDT, Route to Pharmacy Electronically, [facility], 165, cm, 07/21/19 14:31:00 EST, Height, 91, kg, 06/19/19 16:55:00 EST, Dry Weight Start Date: 11/05/19 Stop Date: 10/30/20 Status: Ordered rollator walker w/ 4 wheels, seat and brakes rollator walker w/ 4 wheels, seat and brakes, See Instructions, # 1 each, Refills 0, Tot. Refills 0, Maintenance, dx: diabetes with neuropathy ICD10: E11.40 duration: 99 weeks height: 163 cm weight: 91kg, 06/08/20 13:15:00 EST, Supply Start Date: 06/08/20 Status: Ordered shower bars shower bars, See [...] Start Date: 06/03/20 Status: Ordered Toprol XL 25 mg oral tablet, extended release 25 mg, 1, tablet, By Mouth, Daily in AM, # 30 tablet, Refills 5, Tot. Refills 5, Maintenance, 02/03/20 10:00:00 EDT, Route to Pharmacy Electronically, [facility], 165, cm, 01/12/20 16:41:00 EDT, Height, 91, kg, 06/19/19 16:55:00 EST, Dry Weight Start Date: 02/03/20 Stop Date: 08/01/20 Status: Ordered walker with wheels and brakes [...] Active Anxiety and depression(Confirmed) Active Care coordination BHN-CP C are Management Bre Skinner, CC [phone](Confirmed) 02/02/19 Active Thrombocytopenia(Confirmed) Active Type 1 diabetes mellitus(Confirmed) Active Social History Social History Type Response Smoking Status Never (less than 100 in lifetime) entered on: 06/19/19 Sex
--- OUTSIDE RECORDS SUMMARY | 2023-12-10 00:43 | XMS_ITS | Continuity of Care Document ---
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 Role Phone Claire Trujillo MD [id number]): [facility] - 11/16/[address] [address]- Encounter Diagnosis UTI (urinary tract infection)(Final) - 11/16/23 Discharge Disposition: A-D/C Home Attending Physician: Brandi Clark DO Admitting Physician: Brandi Clark DO Referring Physician: Not on Staff, Referring MD Allergies, Adverse Reactions, Alerts Substance Reaction Severity Status metFORMIN 1 GI symptoms Active 1GI intolreance Immunizations Given and Recorded Vaccine Date Status Refusal Reason zoster vaccine, inactivated 1 09/21/23 Recorded tetanus/diphtheria/pertussis, acel(Tdap) 2 09/21/23 Recorded tetanus/diphtheria/pertussis, acel(Tdap) 01/11/17 Given pneumococcal 20-valent conjugate vaccine 3 09/21/23 Recorded SARS-CoV-2 mRNA (xavziwo-vwhx-mwegc) vax 03/03/22 Given SARS-CoV-2 mRNA (qtxgcst-bdxh-noskl) vax 08/27/21 Given SARS-CoV-2 (COVID-19) mRNA BNT-162b2 vac 11/09/20 Recorded SARS-CoV-2 (COVID-19) mRNA BNT-162b2 vac 10/18/20 Recorded influenza virus vaccine, inactivated 4 04/20/20 Gi corwin influenza virus vaccine, inactivated 04/17/19 Give n influenza virus vaccine, inactivated 06/22/16 Give n influenza virus vaccine, inactivated 11/01/15 Give n influenza virus vaccine, inactivated 04/10/11 Melo rded hepatitis B adult vaccine 04/17/19 Given hepatitis B adult vaccine 11/08/17 Given hepatitis B adult vaccine 10/29/14 Recorded pneumococcal 23-valent vaccine 01/11/17 Given pneumococcal 23-valent vaccine 05/22/02 Recorded tetanus-diphtheria toxoids (Td) 01/30/05 Recorded 1Result Comment: [facility] 2Result Comment: [facility] 3Result Comment: [facility] 4Early/Late Reason: Med Not Available Medications 2 boxes size large adult gloves 2 boxes size large adult gloves, See Instructions, # 2 each, Refills 11, Tot. Refills 11, Maintenance, dx: diabetic neuropathy, incontinence ICD10: E11.40 duration: 99, 04/18/23 14:48:00 EDT, Supply Start Date: 04/18/23 Status: Ordered Abdominal binder for treatment of orthostatic hypotension Abdominal binder for treatment of orthostatic hypotension, See Instructions, # 1 each, Refills 1, Tot. Refills 1, Maintenance, Dispense 2 pairs ALEIDA 99; Dx I 95.1; G99. 0 Ht 164cm Wt 88.2kg BMI 32 [facility] L[facility], 05/04/22 13:56:00 EDT, Supply Start Date: 05/04/22 Status: Ordered Alcohol Pads See Instructions, # 200 each, Refills 11, Tot. Refills 11, Maintenance, To test 3 times a day and with symptoms Dx: T2DM ICD10: E11.9 duration: 52 weeks, 09/09/23 10:00:00 EST, Compound, 166, cm, 09/02/23 13:08:00 EST, Height, 77, kg, 09/02/23 13:0... Start Date: 09/09/23 Status: Ordered ammonium lactate 12% topical lotion 1 application, Topically, Daily, use daily to the intact skin legs daily DO NOT apply to open wounds DO NOT, # 225 Gm, 0 Refills, Maintenance, 11/27/22 11:10:00 EDT, Lotion, [facility], Partial fill upon patient request if the prescri... Start Date: 11/27/22 Status: Ordered Ankle foot orthostis Ankle foot orthostis, See Instructions, # 1 each, Refills 0, Tot. Refills 0, Maintenance, E11.40 needed for 99 weeks Fax to [facility], 09/24/23 17:56:00 EDT, Supply Start Date: 09/24/23 Status: Ordered aspirin 81 mg oral delayed release tablet 81 mg, 1, tablet, By Mouth, Daily, blood thinner/ hace la leonard mas cullen - para proteger el paty/ arterias tapadas en el paty, # 90 tablet, Refills 3, Tot. Refills 3, Maintenance, 09/09/23 9:59:00 EST, Route to Pharmacy Electronically, [facility]... Start Date: 09/09/23 Stop Date: 09/03/24 Status: Ordered bed liners bed liners, See Instructions, # 60 each, Refills 11, Tot. Refills 11, Maintenance, dx: incontinence, T1DM icd10: N31.9 duration: 99 weeks, 10/12/23 12:23:00 EDT, Supply Start Date: 10/12/23 Status: Ordered blood pressure cuff blood pressure [...] with severe diabetic neuropathy ICD10: E11.40 duration: , 03/21/23 15:04:00 EDT, Supply Start Date: 03/21/23 Status: Ordered cephalexin monohydrate 500 mg oral capsule 1 capsule = 500 mg, By Mouth, 4 times a day, for 7 days, # 28 capsule, 0 Refills, Acute 11/23/23 21:30:00 EDT, 11/16/23 21:30:00 EDT, Capsule, [facility], Partial fill upon patient request if the prescription is for a schedule II opioi... Start Date: 11/16/23 Stop Date: 11/23/23 Status: Ordered Compression stockings, thigh-high Compression stockings, [...] Maintenance, dx: incontinence, T1DM ICD10: N31.9 duration: 99, 03/13/22 12:20:00 EDT, Supply Start Date: 03/13/22 Status: Ordered docusate sodium 100 mg oral capsule 100 mg, 1, capsule, By Mouth, 2 times a day, PRN, # 60 capsule, Refills 1, Tot. Refills 1, Maintenance, for constipation, 05/02/23 16:08:00 EDT, Route to Pharmacy Electronically, [facility], Partial fill upon patient request if the pr... Start Date: 05/02/23 Stop Date: 07/01/23 Status: Ordered docusate sodium 100 mg oral tablet 1 tablet = 100 mg, By Mouth, 2 times a day, PRN for constipation, # 60 tablet, 0 Refills, Maintenance, 11/13/23 13:28:00 EDT, Tablet, [facility]/pharmacy #[id number], Partial fill upon patient request if the prescription is for a schedule II opioid drug., 165, cm,... Start Date: 11/13/23 Status: Ordered finasteride 5 mg oral tablet = 5 mg, By Mouth, Daily, # 30 tablet, 0 Refills, Maintenance, 11/13/23 12:34:00 EDT, Tablet, [facility]/pharmacy #[id number], Partial fill upon patient request if the prescription is for a schedule II opioid drug., 165, cm, 11/13/23 10:17:00 EDT, Height, 77, kg, 0... Start Date: 11/13/23 Stop Date: 12/13/23 Status: Ordered Flomax 0.4 mg oral capsule 0.8 mg, 2, capsule, By Mouth, Daily, # 180 capsule, Refills 1, Tot. Refills 1, Maintenance, 10/03/23 13:04:00 EDT, Route to Pharmacy Electronically, [facility], Partial fill upon patient request if the prescription is for a schedule II... Start Date: 10/03/23 Stop Date: 03/31/24 Status: Ordered FreeStyle Vladislav 2 Monitor See [...] E10.42 duration: 99 weeks. [facility]ax to [facility]), 05/11/21 11:23:00 EDT, Supply Start Date: 05/11/21 Status: Ordered Home blood pressure monitor Home blood pressure monitor, See Instructions, # 1 each, Refills 0, Tot. Refills 0, Maintenance, ICD 10 I95.1; E11. 43 ALEIDA: 99 [facility] 12:53:00 EST, Supply Start Date: 05/25/22 Status: Ordered HumaLOG KwikPen 100 units/mL injectable solution See Instructions, Mealtime insulin; dose according to finger stick before meals FS 100-199: 5 unitsFS: 200-249: 6 units FS 250-299: 7 units FS above 300: 8 units total daily short acting insulin dose 30 units, # 15 mL, 1 Refills, 09/09/23... Start Date: 09/09/23 Status: Ordered isosorbide mononitrate 30 mg oral tablet, extended release 30 mg, 1, tablet, By Mouth, Daily at bedtime, Para el paty. Noelle antes de acostarse., # 90 tablet, Refills 3, Tot. Refills 3, Maintenance, 09/09/23 9:57:00 EST, [facility] upon [facility]ien... Start Date: 09/09/23 Stop Date: 09/03/24 Status: Ordered Jardiance 25 mg oral tablet 1 tablet = 25 mg, By Mouth, Daily in AM, # 90 tablet, 3 Refills, Maintenance, 09/09/23 9:59:00 EST,[facility] Partial fill upon patient request if the prescription is for a scheduleII opioid drug., 166, cm, 09/02/23 13:08:00 EST, He... Start Date: 09/09/23 Stop Date: 09/03/24 Status: Ordered Lantus Solostar Pen 100 units/mL subcutaneous solution = 23 units, Subcutaneous Injection, Daily at bedtime, for 30 days, Insulina de 24 horas., # 15 mL, 11 Refills, Hard Stop 09/27/24 13:03:00 EDT, 10/03/23 13:03:00 EDT, Injection, [facility]., increase in dose, 166, cm, 09/24/23 15:24:00... Start Date: 10/03/23 Stop Date: 09/27/24 Status: Ordered Lantus Solostar Pen 100 units/mL subcutaneous solution = 23 units, Subcutaneous Injection, Daily at bedtime, Insulina de 24 horas., # 15 mL, 1 Refills, Maintenance, 04/26/24 16:08:00 EDT, Injection, [facility]., No insurance (Medicare not active until 06/15). Please dispense via 340B., 165,... Start Date: 04/26/24 Status: Ordered Lipitor 80 mg oral tablet 1 tablet = 80 mg, By Mouth, Daily at bedtime, para colesterol / proteger el paty/ arterias tapadas en el paty, # 90 tablet, 3 Refills, Maintenance, 09/09/23 9:59:00 EST, Tablet, [facility]., Partial fill upon patient request, 166,... Start Date: 09/09/23 Stop Date: 09/03/24 Status: Ordered meclizine 12.5 mg oral tablet = 25 mg, By Mouth, 3 times a day, PRN Dizziness, for 6 days, # 18 tablet, 0 Refills, Acute 11/18/2412:27:00 EDT, 11/13/23 13:27:00 EDT, Tablet, [facility]/pharmacy #[id number], Partial fill upon patient request if the prescription is for a schedule II opioid drug... Start Date: 11/13/23 Stop Date: 11/19/23 Status: Ordered medical alert system medical alert [...] paty/ prevenir palpitaciones Bebaantes de acostarse., # 90 tablet, Refills 3, Tot. Refills 3, Maintenance, 09/09/23 9:57:00 EST, [facility] Start Date: 09/09/23 Stop Date: 09/03/24 Status: Ordered MiraLax oral powder for reconstitution = 17 Gm, By Mouth, Daily, for 30 days, # 510 Gm, 0 Refills, Acute 12/13/23 13:28:00 EDT, 11/13/23 13:28:00 EDT, REC Powder, [facility]/pharmacy #[id number], Partial fill upon patient request if the prescription is for a schedule II opioid drug., 17 Gm By Mouth Martha... Start Date: 11/13/23 Stop Date: 12/13/23 Status: Ordered morphine 15 mg/8 to 12 hr oral tablet, extended release 1 tablet = 15 mg, By Mouth, Every 12 hours, # 56 tablet, 0 Refills, Maintenance, 10/25/23 21:13:00 EDT, ER Tablet, [facility]/pharmacy #[id number], Partial fill upon patient request if the prescription is for a schedule II opioid drug. in addition to oxycodone ; o... Start Date: 10/25/23 Stop Date: 11/22/23 Status: Ordered nortriptyline 10 mg oral capsule See Instructions, GEORGE 1 CAPSULA CADA MIGUEL A LA HORA DE DORMIR. *NUEVO MEDICAMENTO PARA DOLOR NEUROPATICO. NO GEORGE JUNTO CON TRAZODONE. PUEDE CAUSAR SEDACION, # 30 capsule, Refills 5, Maintenance, 06/26/23 14:15:00 EST, Instructions Replace Required... Start Date: 06/26/23 Status: Ordered ondansetron 4 mg oral tablet 1 tablet = 4 mg, By Mouth, Every 8 hours, PRN Nausea & Vomiting, for 10 days, # 30 tablet, 0 Refills, Acute 11/23/23 13:27:00 EDT, 11/13/23 13:27:00 EDT, Tablet, [facility]/pharmacy #[id number], Partial fill upon patient request if the prescription is for a schedu... Start Date: 11/13/23 Stop Date: 11/23/23 Status: Ordered one pair Diabetic Shoes with Inserts one pair Diabetic Shoes with Inserts, See Instructions, # 1 each, Refills 0, Tot. Refills 0, Maintenance, Wear for diabetic foot care. Diagnosis: Type II DM, ICD10 E11.65., 11/23/22 15:25:00 EDT, Supply Start Date: 11/23/22 Status: Ordered oxyCODONE 10 mg oral tablet 1 tablet = 10 mg, By Mouth, Every 6 hours, PRN pain, for 28 days, # 112 tablet, 0 Refills, Acute 11/22/23 21:13:00 EDT, 10/25/23 21:13:00 EDT, [facility]/pharmacy #[id number], Partial fill upon patient request ifthe prescription is for a schedule II opioid drug.... Start Date: 10/25/23 Stop Date: 11/22/23 Status: Ordered powerwheel chair powerwheel chair, See Instructions, # 1 each, Refills 0, Tot. 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 99 weeks fax to [facility], 09/24/23 17:56:00 EDT, Supply Start Date: 09/24/23 Status: Ordered pullups - adult size medium pullups - adult size medium, See Instructions, # 240 each, Refills 11, Tot. Refills 11, Maintenance, dx: incontinence, T1DM icd10: N31.9 duration: 99 weeks note size change, 10/12/23 12:23:00 EDT, Supply Start Date: 10/12/23 Status: Ordered raised toilet seat raised toilet [...] weight: 93kg, 11/21/21 16:40:00 EDT, sent to [facility] Start Date: 11/21/21 Status: Ordered senna - oral tablet 2 tablet, By Mouth, Daily at bedtime, PRN for constipation, for 30 days, # 60 tablet, 0 Refills, Acute 12/13/23 13:29:00 EDT, 11/13/23 13:29:00 EDT, Tablet, [facility]acy #[id number], Partial fill upon patient request if the prescription is for a schedule II... Start Date: 11/13/23 Stop Date: 12/13/23 Status: Ordered Senna 8.6 mg oral tablet 17.2 mg, 2, tablet, By Mouth, Daily, for 30 days, # 60 tablet, Refills 0, Tot. Refills 0, Acute, 12/13/23 12:34:00 EDT, 11/13/23 12:34:00 EDT, Route to Pharmacy Electronically, [facility] #[id number] Tablet, Partial fill upon patient request if the prescr... Start Date: 11/13/23 Stop Date: 12/13/23 Status: Ordered shower bars shower bars, See [...] EST, Supply Start Date: 05/26/22 Status: Ordered surgical masks surgical masks, See Instructions, # 100 each, Refills 11, Tot. Refills 11, Maintenance, for infection control dx: T2DM with severe neuropathy ICD10: E11.40 duration: 99, 04/18/23 14:50:00 EDT, Supply Start Date: 04/18/23 Status: Ordered toilet seat toilet seat, See [...] Condition Confirmation Course Effective Dates Status H ealt Status Informant Diabetic autonomic neuropathy Confirmed Active BPH with urinary obstruction Confirmed Active Chronic pain syndrome Confirmed Active CAD (coronary artery disease) Confirmed Active Diabetic peripheral neuropathy Confirmed Active Diabetic nephropathy Confirmed Active Controlled substance agreement signed 01-19-23 Confirmed 01/19/23 Active Dysphagia Confirmed Active Hallucinations Confirmed Active Hyperlipidemia Confirmed Active Hypertension Confirmed Active Ischemic cardiomyopathy EF 40% 04/2022; akinetic apex Confirmed Active Anxiety and depression Confirmed Active Orthostatic hypotension - severe, resulting in recurrent falls Confirmed Active Thrombocytopenia Confirmed Active TIA (transient ischemic attack) Confirmed Active T2DM (type 2 diabetes mellitus) Confirmed Active Vital Signs Most recent to oldest [Reference Range]: 1 2 3 Oxygen Saturation [94-100 %] 100 % (11/16/23 7:58 PM) 99 % (11/16/23 6:41 PM) 100 % (11/16/23 4:48 PM) Pulse Rate [55-90 bpm] 93 bpm *H* (11/16/23 7:58 PM) 89 bpm (11/16/23 6:41 PM) 81 bpm (11/16/23 4:48 PM) Blood Pressure [90-138/55-84 mm Hg] 109/87mm Hg (11/16/23 7:58 PM) 153/89mm Hg *H* (11/16/23 6:41 PM) 166/87mm Hg *H* (11/16/23 4:48 PM) Respiratory Rate [16-30 br/min] 16 br/min (11/16/23 7:58 PM) 17 br/min (11/16/23 6:41 PM) 18 br/min (11/16/23 4:48 PM) Temperature [96.8-100.4 DegF] 98.5 DegF (11/16/23 7:58 PM) 97.8 DegF (11/16/23 2:35 PM) Mode of Delivery (Oxygen) Room air (11/16/23 7:58 PM) Room air (11/16/23 6:41 PM) Room air (11/16/23 4:48 PM) Blood pressure sites Arm, right (11/16/23 7:58 PM) Temperature Route Oral (11/16/23 7:58 PM) Oral (11/16/23 2:35 PM) Social History Social History Type Response Smoking Status Never (less than 100 in lifetime) entered on: 06/19/19 Sex Patient Care team information Care Team Personnel Name: Sorin Moser RN Position: [facility] RN Member Role: Primary Care Nurse Name: Ya Wilson RN Position: [facility] RN Member Role: Primary Care Nurse Name: Brandi Wei RN Position: [facility] RN Member Role: Primary Care Nurse Name: Valentina Leiva RN Position: [facility] SN RN Member Role: Primary Care Nurse Name: Macarena Bedolla Position: [facility] Outreach Member Role: Lifetime Consulting Physician Name: Abigail Yang RN Position: [facility] Onco RN Member Role: Primary Care Nurse Name: Claire Trujillo MD Position: [facility] Physician - Primary Care Member Role: PCP Address: Address: [address] [place] [address] Name: Heidi Dao Position: [facility] RN Member Role: Primary Care Nurse Care Team Related Persons Name: JOEL BRIZUELA Address: home [address] [place] [address]
--- OUTSIDE RECORDS SUMMARY | 2023-12-10 00:43 | XMS_ITS | Continuity of Care Document ---
Author Organization [facility] Address [address] [place] [address]- Care Team Providers Care Warp Hanger Name Role Phone Claire Trujillo MD Primary Care Physician Encounter [facility] Date(s): 02/06/23 - 03/25/23 [facility] [address] [place], [place] [address] Attending Physician: Nimisha Singer NP Admitting Physician: Nimisha Singer NP Referring Physician: Nimisha Singer NP Allergies, Adverse Reactions, Alerts Substance Reaction Severity Status metFORMIN 1 GI symptoms Active 1GI intolreance Immunizations Given and Recorded Vaccine Date Status Refusal Reason SARS-CoV-2 mRNA (xyporua-vkjj-gaedj) vax 03/03/22 Given SARS-CoV-2 mRNA (fvuryqa-lkyj-xjxfy) vax 08/27/21 Given SARS-CoV-2 (COVID-19) mRNA BNT-162b2 [...] 0 Refills, Maintenance, 11/27/22 11:10:00 EDT, [facility] upon patient request if the prescri... Start Date: 11/27/22 Status: Ordered aspirin 81 mg oral delayed release tablet 81 mg, 1, tablet, By Mouth, Daily, blood thinner/ hace la leonard mas cullen - para proteger el paty/ arterias tapadas en el paty, # 30 tablet, Refills 11, Tot. Refills 11, Maintenance, 05/04/22 10:23:00 EDT, Route to Pharmacy Electronically, [facility]... Start Date: 05/04/22 Status: Ordered bed [...] Moderate, Apply to legs for diabetic neuropathy. Com[place]an sig, # 60 Gm, 1 Refills, Maintenance, 06/06/22 9:44:00 EST, Cream, [facility], Partial fill upon patient request if [...] 01/04/23 15:22:00 EDT, Route to Pharmacy Electronically, [facility], Partial fill upon patient request if the pre... Start Date: 01/04/23 Stop Date: 03/05/23 Status: Ordered Flomax 0.4 mg oral capsule 0.8 mg, 2, capsule, By Mouth, Daily, # 180 capsule, Refills 0, Tot. Refills 0, Maintenance, 10/16/22 13:34:00 EDT, Route to Pharmacy Electronically, [facility], Partial fill upon patient request if [...] E10.42 duration: 99 weeks. [facility], 05/11/21 11:23:00 EDT, Supply Start Date: 05/11/21 Status: Ordered Home blood pressure monitor Home blood pressure monitor, See Instructions, # 1 each, Refills 0, Tot. Refills 0, Maintenance, ICD 10 I95.1; E11. 43 ALEIDA: 99 [facility] 12:53:00 EST, Supply Start Date: 05/25/22 Status: Ordered HumaLOG KwikPen 100 units/mL injectable solution See Instructions, Mealtime insulin; dose according to finger stick before meals FS 100-199: 5 unitsFS: 200-249: 6 units FS 250-299: 7 units FS above 300: 8 units, # 15 mL, 11 Refills, 06/01/22 10:46:00 EST, [facility]., 165, cm... Start Date: 06/01/22 Status: Ordered Jardiance 25 mg oral tablet 1 tablet = 25 mg, By Mouth, Daily in AM, # 30 tablet, 5 Refills, Maintenance, 11/08/22 15:44:00 EDT, [facility]., Partial fill upon patient request if the prescription is for a schedule II opioid drug., 165, cm, 09/04/22 13:02:00 EST, H... Start Date: 11/08/22 Stop Date: 05/07/23 Status: Ordered Lantus Solostar Pen 100 units/mL subcutaneous solution = 23 units, Subcutaneous Injection, Daily at bedtime, Insulina de 24 horas., # 15 mL, 11 Refills, Maintenance, 01/02/23 13:26:00 EDT, [facility] increase in dose, 165, cm,01/02/23 13:02:00 EDT, Height, 84.2, kg, 05/21/22 0... Start Date: 01/02/23 Stop Date: 12/28/23 Status: Ordered Lipitor 80 mg oral tablet 1 tablet = 80 mg, By Mouth, Daily at bedtime, para colesterol / proteger el paty/ arterias tapadas en el paty, # 30 tablet, 11 Refills, Maintenance, 05/04/22 10:23:00 EDT, Tablet, [facility], Partial fill upon patient request, 16... [...] 05/04/22 10:27:00 EDT, Route to Pharmacy Electronically, [facility]... Start Date: 05/04/22 Status: Ordered [...] 03/09/23 8:32:00 EDT, [facility] fill upon patient re... Start Date: [...] weight: 93kg, 11/21/21 16:40:00 EDT, sent to [facility]. Start Date: 11/21/21 Status: Ordered shower bars [...] Care Nurse Name: Ya Collier RN Position: [facility] RN Member Role: Primary Care Nurse Name: Valentina Leiva RN Position: [facility] SN RN Member Role: Primary Care Nurse Name: Macarena Bedolla Position: [facility] Outreach Member Role: Lifetime Consulting Physician Name: Abigail Nuno RN Position: [facility] Onco RN Member Role: Primary Care Nurse Name: Claire Trujillo MD Position: [facility] Physician - Primary Care Member Role: PCP Address: Address: [address] [place] [id number] Name: Heidi Dao Position: [facility] RN Member Role: Primary Care Nurse Care Team Related Persons Name: JOEL BRIZUELA Address: home [address] [address] [place] [id number]
--- OUTSIDE RECORDS SUMMARY | 2023-12-10 00:43 | XMS_ITS | Continuity of Care Document ---
Author Organization [facility] Address [address] [place] [address]- Care Team Providers Care Chemical Tank Worker Name Role Phone Claire Trujillo MD Primary Care Physician [place] [facility] [place]05[place] - 11/06/[address] [address]- Attending Physician: Siddhartha Booth MD Admitting Physician: Siddhartha Booth MD Allergies, Adverse Reactions, Alerts Substance Reaction [...] Weight Start Date: 10/03/20 Status: Ordered Aspirin Enteric Coated 81 mg [...] EST, Supply Start Date: 06/08/20 Status: Ordered calcium (as carbonate)-vitamin D 500 mg-400 intl units oral tablet 1 tablet, By Mouth, 2 times a day, # 60 tablet, 5 Refills, Maintenance, 08/18/20 16:04:00 EST, Tablet, [facility], 1 tablet By Mouth 2 times a day, 163, cm, 04/21/20 22:04:00 EDT, Height, 91, kg,04/19/20 23:16:00 EDT, Dry Weight Start Date: 08/18/20 Status: Ordered Diabetic Shoes with Inserts Diabetic Shoes with Inserts, See Instructions, # 2 each, Refills 0, Tot. Refills 0, Maintenance, Wear for diabetic foot care. Diagnosis: Type II DM, ICD10 E11.65. Fax to [facility] [place] [facility], 10/28/20 14:47:00 EDT, Supply Start Date: 10/28/20 [...] PLUS 1 MORE TIME NEEDED FOR SYMPTOMS, [facility] Start Date: 04/21/19 Status: Ordered FREESTYLE LANCETS 100CT See Instructions, # 100 each, Refills 11 Tot. Refills 11, USE DIRECTED FOR TYPE 1 DIABETES, KEVIN,[facility] Start Date: 03/18/19 Status: Ordered Freestyle [...] times a day, # 60 capsule, Refills 3, Tot. Refills 0, Maintenance, 08/18/2115:13:00 EST, Route to Pharmacy Electronically, [facility], 163, cm, 04/21/20 22:04:00 EDT, Height, 91, kg, 04/19/20 23:16:00 EDT, Dry Weight Start Date: 08/18/20 Status: Ordered Hand Held Shower Head Hand Held Shower Head, See Instructions, # 1 each, Refills 0, Tot. Refills 0, Maintenance, diagnosis: diabetic neuropathy, T1DM. ICD10: E10.42 duration: 99 weeks. Fax to Cheryl ([facility]), 10/28/20 14:53:00 EDT, Supply Start Date: 10/28/20 Status: Ordered HumaLOG KwikPen 100 units/mL injectable solution See Instructions, INJECT UNDER THE SKIN DIRECTED. FOUR UNITS IF BS OVER 120 ,6 UNITS IF BS AT 200 ,8 UNITS IF BS AT 300, 12 UNITS IF BS 400 THREE TIMES DAILY BEFORE MEALS. MAXIMUM 60 UNITS / DAY, # 15 mL, 11 Refills, Maintenance, [facility], 16... Start Date: 10/25/20 Status: Ordered isosorbide mononitrate 30 mg oral tablet, extended release 1 tablet = 30 mg, By Mouth, Daily in AM, # 30 tablet, 11 Refills, Maintenance, 02/23/20 12:51:00 EDT, [facility], 165, cm, 01/12/20 16:41:00 EDT, Height, [...] 3 Refills, Maintenance, 06/09/20 13:06:00 EST, Tablet, [facility], Partial fill upon patient request, 163, [...] weight: 91kg, 08/26/20 16:56:00 EST, sent to [facility]. Start Date: 08/26/20 Status: Ordered shower bars [...] tablet, Refills 5, Tot. Refills 5, Maintenance, 08/04/20 14:13:00 EST, Route to Pharmacy Electronically, [facility], 163, cm, 04/21/20 22:04:00 EDT, Height, 91, kg, 04/19/20 23:16:00 EDT, Dry Weight Start Date: 08/04/20 Stop Date: 01/31/21 Status: Ordered walker with wheels and brakes [...] Active Anxiety and depression(Confirmed) Active Care coordination N-BHCP C are Management Bre Skinner, CC [phone](Confirmed) 02/02/19 Active Thrombocytopenia(Confirmed) Active Type 1 diabetes mellitus(Confirmed) Active Social History Social History Type Response Smoking Status Never (less than 100 in lifetime) entered on: 06/19/19 Sex
--- OUTSIDE RECORDS SUMMARY | 2023-12-10 00:43 | XMS_ITS | Continuity of Care Document ---
Author Organization [facility] Address [address] [place] [address]- Care Team Providers Care Human Projectile Name Role Phone Claire Trujillo MD Primary Care Physician [phone] Encounter [facility] [place] Date(s): 09/29/20 - 10/29/[address] [address]- Allergies, Adverse Reactions, Alerts Substance Reaction Severity [...] Type II DM, ICD10 E11.65. Fax to [facility], 10/28/20 14:47:00 EDT, Supply Start Date: 10/28/20 [...] PLUS 1 MORE TIME NEEDED FOR SYMPTOMS, [facility] Start Date: 04/21/19 Status: Ordered FREESTYLE LANCETS 100CT See Instructions, # 100 each, Refills 11 Tot. Refills 11, USE DIRECTED FOR TYPE 1 DIABETES, [facility] Start Date: 03/18/19 Status: Ordered Freestyle [...] Maintenance, 08/18/2115:13:00 EST, Route to Pharmacy Electronically, [facility], 163, cm, 04/21/20 22:04:00 EDT, Height, 91, kg, 04/19/20 23:16:00 EDT, Dry Weight Start Date: 08/18/20 Status: Ordered Hand Held Shower Head Hand Held Shower Head, See Instructions, # 1 each, Refills 0, Tot. Refills 0, Maintenance, diagnosis: diabetic neuropathy, T1DM. ICD10: E10.42 duration: 99 weeks. Fax to Cheryl ([facility]), 10/28/20 14:53:00 EDT, Supply Start Date: 10/28/20 Status: Ordered HumaLOG KwikPen 100 units/mL injectable solution See Instructions, INJECT UNDER THE SKIN DIRECTED. FOUR UNITS IF BS OVER 120 ,6 UNITS IF BS AT 200 ,8 UNITS IF BS AT 300, 12 UNITS IF BS 400 THREE TIMES DAILY BEFORE MEALS. MAXIMUM 60 UNITS / DAY, # 15 mL, 11 Refills, Maintenance, [facility], 16... Start Date: 10/25/20 Status: Ordered isosorbide mononitrate 30 mg oral tablet, extended release 1 tablet = 30 mg, By Mouth, Daily in AM, # 30 tablet, 11 Refills, Maintenance, 02/23/20 12:51:00 EDT, [facility], 165, cm, 01/12/20 16:41:00 EDT, Height, 91, kg, 06/19/19 16:55:00 EST, Dry Weight Start Date: 02/23/20 Stop Date: 02/17/21 Status: Ordered Lantus Solostar Pen 100 units/mL subcutaneous solution = 15 units, Subcutaneous Injection, Daily at bedtime, # 9 mL, 2 Refills, Maintenance, 05/07/20 13:08:00 EDT, Injection, [facility], 163, cm, 04/21/20 22:04:00 EDT, Height, 91, kg, 04/19/20 23:16:00 EDT, Dry Weight Start Date: 05/07/20 Stop Date: 08/05/20 Status: Ordered Lipitor 80 mg oral tablet 1 tablet = 80 mg, By Mouth, Daily at bedtime, # 90 tablet, 3 Refills, Maintenance, 06/09/20 13:06:00 EST, Tablet, [facility], Partial fill upon patient request, 163, cm, 04/21/20 22:04:00 EDT, Height, 91, kg, 04/19/20 23:16:00 EDT, Dry Weight Start Date: 06/09/20 Stop Date: 06/04/21 Status: Ordered lisinopril 10 mg oral tablet 1, tablet, By Mouth, Daily, for 90 days, # 90 tablet, Refills 3, Tot. Refills 3, Hard Stop 10/30/2117:37:00 EDT, 11/05/19 18:37:00 EDT, Route to Pharmacy Electronically, [facility], 165, cm, 07/21/19 14:31:00 EST, Height, 91, kg, 06/19/19 16:55:0... Start Date: 11/05/19 Stop Date: 10/30/20 Status: Ordered lisinopril 10 mg oral tablet 1, tablet, By Mouth, Daily, # 90 tablet, Refills 1, Tot. Refills 1, Maintenance, 10/30/20 18:37:00 EDT, Route to Pharmacy Electronically, [facility], 163, cm, 04/21/20 22:04:00 EDT, Height, [...] weight: 91kg, 08/26/20 16:56:00 EST, sent to [facility].... Start Date: 08/26/20 Status: Ordered shower bars [...] 08/04/20 14:13:00 EST, Route to Pharmacy Electronically, [facility], 163, cm, 04/21/20 22:04:00 EDT, Height, [...] BHN-BHCP C are Management Bre Skinner, CC [phone](Confirmed) 02/02/19 Active Thrombocytopenia(Confirmed) Active Type 1 diabetes mellitus(Confirmed) Active Social History Social History Type Response Smoking Status Never (less than 100 in lifetime) entered on: 06/19/19 Sex
--- OUTSIDE RECORDS SUMMARY | 2023-12-10 00:43 | XMS_ITS | Continuity of Care Document ---
Author Organization [facility] Address [address] [place] [address]- Care Team Providers Care Dampproofer Name Role Phone Claire Trujillo MD Primary Care Physician Encounter [facility] [place] [facility] [id number] Date(s): 10/17/22 - 11/16/[address] [address]- Attending Physician: Uche Urena Admitting Physician: AdmUche sheth Referring Physician: AdmtrUche Allergies, Adverse Reactions, Alerts Substance Reaction Severity Status metFORMIN 1 GI symptoms Active 1GI intolreance Immunizations Given and Recorded Vaccine Date Status Refusal Reason SARS-CoV-2 mRNA (gmxbtor-[id number]-ddszh) vax 03/03/22 Given SARS-CoV-2 mRNA (aechxez-cdao-xpfls) vax 08/27/21 Given SARS-CoV-2 (COVID-19) mRNA BNT-162b2 [...] tetanus/diphtheria/pertussis, acel(Tdap) 01/11/17 Given pneumococcal 23-valent vaccine 6/29/17 Given pneumococcal 23-valent vaccine 05/22/02 Recorded tetanus-diphtheria toxoids (Td) 01/30/05 Recorded Not Given Vaccine Date Status Refusal Reason pneumococcal 23-valent vaccine 12/13/13 Not Given Patient Refuses 1Early/Late Reason: Med Not Available Medications Abdominal [...] 02/10/21 9:0... Start Date: 05/04/22 Status: Ordered aspirin 81 mg oral delayed release tablet 81 mg, 1, tablet, By Mouth, Daily, blood thinner/ hace la leonard mas cullen - para proteger el paty/ arterias tapadas en el paty, # 30 tablet, Refills 11, Tot. Refills 11, Maintenance, 05/04/22 10:23:00 EDT, Route to Pharmacy Electronically, [facility]... Start Date: 05/04/22 Status: Ordered bed [...] 06/08/20 Status: Ordered briefs - adult size medium briefs - adult size medium, See Instructions, # 60 each, Refills 11, Tot. Refills 11, Maintenance, dx: incontinence, T1DM icd10: N31.9 duration: 99 weeks note size change, 03/24/22 12:58:00 EDT, Supply Start Date: 03/24/22 Status: Ordered capsaicin 0.025% topical cream 1 application, Topically, 3 times a day, PRN Pain , Moderate, Apply to legs for diabetic neuropathy. [place] sig, # 60 Gm, 1 Refills, Maintenance, 06/06/22 9:44:00 EST, Cream, [facility], Partial fill upon patient request if [...] EDT, Supply Start Date: 03/13/22 Status: Ordered Flomax 0.4 mg oral capsule 0.8 mg, 2, capsule, By Mouth, Daily, # 180 capsule, Refills 0, Tot. Refills 0, Maintenance, 10/16/22 13:34:00 EDT, Route to Pharmacy Electronically, [facility], Partial fill upon patient request if [...] Dry Weight Start Date: 11/03/22 Status: Ordered Hand Held Shower Head Hand Held Shower Head, See Instructions, # 1 each, Refills 0, Tot. Refills 0, Maintenance, diagnosis: diabetic neuropathy, T1DM. ICD10: E10.42 duration: 99 weeks. Fax to [facility], 05/11/21 11:23:00 EDT, Supply Start Date: 05/11/21 Status: Ordered Home blood pressure monitor Home blood pressure monitor, See Instructions, # 1 each, Refills 0, Tot. Refills 0, Maintenance, ICD 10 I95.1; E11. 43 ALEIDA: 99 Bring rx to [facility], 05/25/22 12:53:00 EST, Supply Start Date: 05/25/22 Status: Ordered HumaLOG KwikPen 100 units/mL injectable solution See Instructions, Mealtime insulin; dose according to finger stick before meals FS 100-199: 5 unitsFS: 200-249: 6 units FS 250-299: 7 units FS above 300: 8 units, # 15 mL, 11 Refills, 06/01/22 10:46:00 EST, [facility]., 165, cm... Start Date: 06/01/22 Status: Ordered Jardiance 25 mg oral tablet 1 tablet = 25 mg, By Mouth, Daily in AM, # 30 tablet, 5 Refills, Maintenance, 11/08/22 15:44:00 EDT, [facility], Partial fill upon patient request if the prescription is for a schedule II opioid drug., 165, cm, 09/04/22 13:02:00 EST, H... Start Date: 11/08/22 Stop Date: 05/07/23 Status: Ordered Lantus Solostar Pen 100 units/mL subcutaneous solution = 18 units, Subcutaneous Injection, Daily at bedtime, Insulina de 24 horas., # 15 mL, 11 Refills, Maintenance, 09/13/22 12:18:00 EST, [facility]jection, [facility] 165, cm, 09/04/22 13:02:00EST, Height, 84.2, kg, 05/21/22 0:51:00 EDT, Dry We... Start Date: 09/13/22 Stop Date: 09/08/23 Status: Ordered Lipitor 80 mg oral tablet 1 tablet = 80 mg, By Mouth, Daily at bedtime, para colesterol / proteger el paty/ arterias tapadas en el paty, # 30 tablet, 11 Refills, Maintenance, 05/04/22 10:23:00 EDT, Tablet, [facility], Partial fill upon patient request, 16... [...] 05/04/22 10:27:00 EDT, Route to Pharmacy Electronically, [facility]... Start Date: 05/04/22 Status: Ordered nortriptyline [...] care. Diagnosis: Type II DM, ICD10 E11.65., 11/16/22 13:31:00 EDT, Supply Start Date: 11/16/22 Status: Ordered raised toilet seat raised toilet [...] weight: 93kg, 11/21/21 16:40:00 EDT, sent to [facility]. Start Date: 11/21/21 Status: Ordered shower [...] Confirmed Active Anxiety and depression Confirmed Active Obese class I Confirmed Active Orthostatic hypotension - severe, resulting in recurrent falls Confirmed Active Thrombocytopenia Confirmed Active TIA (transient ischemic attack) Confirmed Active T2DM (type 2 diabetes mellitus) Confirmed Active Social History Social History Type Response Smoking Status Never (less than 100 in lifetime) entered on: 06/19/19 Sex Note * Yuridia Zepeda RN: PERFORM, SIGN, VERIFY Event Display: Case Management Discharge Plan Authored Date: [id number] Patient: PARIS ROJO Age: 59 years Sex: Male : 1960 Associated Diagnoses: None Author: Yuridia Zepeda RN Unable to reach pt for follow up call. Call placed to Pt. [phone] via [place]an language rmaon/[id number] l/m on v/m requesting return call to [facility] to schedule f/u appt. Pt. to be scheduled for IPF as noted in [facility] D/C instructions 06/21/19: Follow-Up InstructionsFollow Up With: Where: When: Claire Trujilol Within 1 to 2 weeks * Yuridia Zepeda RN: PERFORM, SIGN, VERIFY Event Display: Case Management Discharge Plan Authored Date: [id number] Patient: PARIS ROJO Age: 58 years Sex: Male : 1960 Associated Diagnoses: None Author: Yuridia Zepeda RN Unable to reach pt for follow up call. Call placed to Pt. [phone] via [place]an language line/Finn [id number] RNCM was informed that Pt. is not at home presently. RNCM l/m with [facility] informing of [facility]t. 02/07/19 10:20am at [facility]. * Yuridia Zepeda RN: PERFORM, SIGN, VERIFY Event Display: Case Management Discharge Plan Authored Date: [id number] Patient: PARIS ROJO Age: 58 years Sex: Male : 1960 Associated Diagnoses: None Author: Yuridia Zepeda RN Unable to reach pt for follow up call. Call placed to Pt. [phone] via [place]an Language line/Zulema [id number] l/m on v/m requesting returncall to [facility] to schedule appt. (IPF appt. to be scheduled when call is returned). Patient Care team information Care Team Personnel Name: Sorin Moser RN Position: [facility] RN Member Role: Primary Care Nurse Name: Brandi Wei RN Position: [facility] RN Member Role: Primary Care Nurse Name: Ya Collier RN Position: [facility] PCO RN Member Role: Primary Care Nurse Name: Valentina Leiva RN Position: [facility] SN RN Member Role: Primary Care Nurse Name: Macarena Bedolla Position: [facility] Outreach Member Role: Lifetime Consulting Physician Name: Abigail Nuno RN Position: [facility] Onco RN Member Role: Primary Care Nurse Name: Claire Trujillo MD Position: [facility] Primary Care Physician Member Role: PCP Address: Address: [address] [place] [address]- Name: Heidi Dao Position: [facility] RN Member Role: Primary Care Nurse Care Team Related Persons Name: JOEL BRIZUELA Address: home [address] [place] [id number]
--- OUTSIDE RECORDS SUMMARY | 2023-12-10 00:43 | XMS_ITS | Continuity of Care Document ---
Author Organization [facility] Address [address] [place] [address]- Care Team Providers Care Wardrobe Mistress Name Role Phone Claire Trujillo MD Primary Care Physician Encounter [place] Date(s): 10/25/23 - 11/24/[address] [address] Allergies, Adverse Reactions, Alerts Substance Reaction Severity Status metFORMIN 1 GI symptoms Active 1GI intolreance Immunizations Given and Recorded Vaccine Date Status Refusal Reason zoster vaccine, inactivated 1 09/21/23 Recorded tetanus/diphtheria/pertussis, acel(Tdap) 2 09/21/23 Recorded tetanus/diphtheria/pertussis, acel(Tdap) 01/11/17 Given pneumococcal 20-valent conjugate vaccine 3 09/21/23 Recorded SARS-CoV-2 mRNA ([id number]) vax 03/03/22 Given SARS-CoV-2 mRNA ([id number]) vax 08/27/21 Given SARS-CoV-2 (COVID-19) mRNA BNT-162b2 [...] 0 Refills, Maintenance, 11/27/22 11:10:00 EDT, Lotion, [facility], Partial fill upon patient request if the prescri... Start Date: 11/27/22 Status: Ordered Ankle foot orthostis Ankle foot orthostis, See Instructions, # 1 each, Refills 0, Tot. Refills 0, Maintenance, E11.40 needed for 99 weeks Fax to [facility], 09/24/23 17:56:00 EDT, Supply Start Date: 09/24/23 Status: Ordered aspirin 81 mg oral delayed release tablet 81 mg, 1, tablet, By Mouth, Daily, blood thinner/ hace la leonard avileza - para proteger el paty/ arterias tapadas en el paty, # 90 tablet, Refills 3, Tot. Refills 3, Maintenance, 09/09/23 9:59:00 EST, Route to Pharmacy Electronically, [facility]... Start Date: 09/09/23 Stop Date: 09/03/24 Status: [...] EDT, Supply Start Date: 03/21/23 Status: Ordered Compression stockings, thigh-high Compression stockings, [...] 05/02/23 16:08:00 EDT, Route to Pharmacy Electronically, [facility], Partial fill upon patient request if the pr... Start Date: 05/02/23 Stop Date: 07/01/23 Status: Ordered docusate sodium 100 mg oral tablet 1 tablet = 100 mg, By Mouth, 2 times a day, PRN for constipation, # 60 tablet, 0 Refills, Maintenance, 11/13/23 13:28:00 EDT, Tablet, [facility]/pharmacy #[id number], Partial fill upon patient request if the prescription is for a schedule II opioid drug., 165, cm,... Start Date: 11/13/23 Status: Ordered famotidine 10 mg oral tablet 1 tablet = 10 mg, By Mouth, 2 times a day, # 60 tablet, 1 Refills, Maintenance, 11/21/23 14:38:00 EDT, Tablet, [facility]/pharmacy #[id number], Partial fill upon patient request if the prescription is for a schedule II opioid drug., 165, cm, 11/21/23 14:15:00 EDT,... Start Date: 11/21/23 Status: Ordered finasteride 5 mg oral tablet = 5 mg, By Mouth, Daily, # 30 tablet, 2 Refills, Maintenance, 12/13/23 12:34:00 EDT, Tablet, [facility]/pharmacy #[id number], Partial fill upon patient request if the prescription is for a schedule II opioid drug., 165, cm, 11/21/23 14:15:00 EDT, Height, 77, kg, 0... Start Date: 12/13/23 Stop Date: 03/12/24 Status: Ordered finasteride 5 mg oral tablet = 5 mg, By Mouth, Daily, for 30 days, # 30 tablet, 0 Refills, Hard Stop 12/13/23 12:34:00 EDT, 11/13/23 12:34:00 EDT, Tablet, [facility]/pharmacy #[id number], Partial fill upon patient request if the prescriptionis for a schedule II opioid drug., 165, cm, ... Start Date: 11/13/23 Stop Date: 12/13/23 Status: Ordered Flomax 0.4 mg oral capsule 0.8 mg, 2, capsule, By Mouth, Daily, # 180 capsule, Refills 1, Tot. Refills 1, Maintenance, 10/03/23 13:04:00 EDT, Route to Pharmacy Electronically, [facility] Partial fill upon patient request if the [...] E10.42 duration: 99 weeks. Fax to [facility], 05/11/21 11:23:00 EDT, Supply Start Date: 05/11/21 Status: Ordered Home blood pressure monitor Home blood pressure monitor, See Instructions, # 1 each, Refills 0, Tot. Refills 0, Maintenance, ICD 10 I95.1; E11. 43 ALEIDA: [facility] 12:53:00 EST, Supply Start Date: [...] 09/09/23 9:57:00 EST, Route to Pharmacy Electronically, [facility], Partial fill upon patien... Start Date: 09/09/23 Stop Date: 09/03/24 Status: Ordered Jardiance 25 mg oral tablet 1 tablet = 25 mg, By Mouth, Daily in AM, # 90 tablet, 3 Refills, Maintenance, 09/09/23 9:59:00 EST,[facility], Partial fill upon patient request if [...] 09/27/24 13:03:00 EDT, 10/03/23 13:03:00 EDT, Injection, [facility]., increase in dose, 166, cm, 09/24/23 15:24:00... Start Date: 10/03/23 Stop Date: 09/27/24 Status: Ordered Lantus Solostar Pen 100 units/mL subcutaneous solution = 23 units, Subcutaneous Injection, Daily at bedtime, Insulina de 24 horas., # 15 mL, 1 Refills, Maintenance, 04/26/24 16:08:00 EDT, Injection, [facility]., No insurance (Medicare not active until 06/15). Please dispense via 340B., 165,... Start Date: 04/26/24 Status: Ordered Lipitor 80 mg oral tablet 1 tablet = 80 mg, By Mouth, Daily at bedtime, para colesterol / proteger el paty/ arterias tapadas en el paty, # 90 tablet, 3 Refills, Maintenance, 09/09/23 9:59:00 EST, Tablet, [facility]., Partial fill upon patient request, 166,... Start Date: 09/09/23 Stop Date: 09/03/24 Status: Ordered medical alert system medical alert [...] 09/09/23 9:57:00 EST, Route to Pharmacy Electronically, [facility]... Start Date: 09/09/23 Stop Date: 09/03/24 Status: Ordered MiraLax oral powder for reconstitution = 17 Gm, By Mouth, Daily, for 30 days, # 510 Gm, 0 Refills, Acute 12/13/23 13:28:00 EDT, 11/13/23 13:28:00 EDT, REC Powder, [facility]/pharmacy #[id number], Partial fill upon patient request if the prescription is for a schedule II opioid drug., 17 Gm By Mouth Martha... Start Date: 11/13/23 Stop Date: 12/13/23 Status: Ordered morphine 15 mg/8 to 12 hr oral tablet, extended release 1 tablet = 15 mg, By Mouth, Every 12 hours, # 56 tablet, 0 Refills, Maintenance, 11/21/23 17:14:00 EDT, ER Tablet, [facility]/pharmacy #[id number], Partial fill upon patient request if the prescription is for a schedule II opioid drug. in addition to oxycodone ; o... Start Date: 11/21/23 Stop Date: 12/19/23 Status: Ordered mupirocin 2% topical ointment 1 application, Topically, 3 times a day, for 7 days, # 22 Gm, 0 Refills, Acute 11/28/23 14:34:00 EDT, 11/21/23 14:34:00 EDT, Ointment, [facility]/pharmacy #[id number], Partial fill upon patient request if the prescription is for a schedule II opioid drug., 1 appli... Start Date: 11/21/23 Stop Date: 11/28/23 Status: Ordered nortriptyline 10 mg oral capsule See Instructions, GEORGE 1 CAPSULA CADA MIGUEL A LA HORA DE DORMIR. *NUEVO MEDICAMENTO PARA DOLOR NEUROPATICO. NO GEORGE JUNTO CON TRAZODONE. PUEDE CAUSAR SEDACION, # 30 capsule, Refills 5, Maintenance, 06/26/23 14:15:00 EST, Instructions Replace Required... Start Date: 06/26/23 Status: Ordered ondansetron 4 mg oral tablet, disintegrating 1 tablet = 4 mg, By Mouth, Every 8 hours, PRN Nausea & Vomiting, for 5 days, # 20 tablet, 0 Refills, Acute 11/26/23 14:36:00 EDT, 11/21/23 14:36:00 EDT, Tablet, [facility]/pharmacy #[id number], Partial fill upon patient request if the prescription is for a schedul... Start Date: 11/21/23 Stop Date: 11/26/23 Status: Ordered one pair Diabetic Shoes with [...] days, # 112 tablet, 0 Refills, Acute 12/19/23 17:14:00 EDT, 11/21/23 17:14:00 EDT, [facility]/pharmacy #[id number], Partial fill upon patient request ifthe prescription is for a schedule II opioid drug.... Start Date: 11/21/23 Stop Date: 12/19/23 Status: Ordered powerwheel chair powerwheel chair, See Instructions, # 1 each, Refills 0, Tot. 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 99 weeks fax to [facility], 09/24/23 17:56:00 EDT, Supply Start Date: 09/24/23 [...] weight: 93kg, 11/21/21 16:40:00 EDT, sent to [facility] Start Date: 11/21/21 Status: Ordered senna - oral tablet 2 tablet, By Mouth, Daily at bedtime, PRN for constipation, for 30 days, # 60 tablet, 0 Refills, Acute 12/13/23 13:29:00 EDT, 11/13/23 13:29:00 EDT, Tablet, [facility]/pharmacy #[id number], Partial fill upon patient request if the prescription is for a schedule II... Start Date: 11/13/23 Stop Date: 12/13/23 Status: Ordered Senna 8.6 mg oral tablet 17.2 mg, 2, tablet, By Mouth, Daily, for 30 days, # 60 tablet, Refills 0, Tot. Refills 0, Acute, 12/13/23 12:34:00 EDT, 11/13/23 12:34:00 EDT, Route to Pharmacy Electronically, [facility]/pharmacy #[id number] Tablet, Partial fill upon patient request [...] autonomic neuropathy, frequent falls ICD10: G99.0 duration: , 05/26/22 9:07:00 EST, Supply Start Date: 05/26/22 Status: Ordered surgical masks surgical masks, See Instructions, # 100 each, Refills 11, Tot. Refills 11, Maintenance, for infection control dx: T2DM with severe neuropathy ICD10: E11.40 duration: , 04/18/23 14:50:00 EDT, Supply Start Date: 04/18/23 [...] Team Personnel Name: Sorin Moser RN Position: [facility] RN Member Role: Primary Care Nurse Name: Ya Wilson RN Position: [facility] RN Member Role: Primary Care Nurse Name: Brandi Wei RN Position: [facility] RN Member Role: Primary Care Nurse Name: Valentina Leiva RN Position: [facility] SN RN Member Role: Primary Care Nurse Name: Macarena Bedolla Position: [facility] Outreach Member Role: Lifetime Consulting Physician Name: Abigail Yang RN Position: [facility] Onco RN Member Role: Primary Care Nurse Name: Claire Trujillo MD Position: [facility] Physician - Primary Care Member Role: PCP Address: Address: [address] [place] [address]- Name: Heidi Dao Position: [facility] RN Member Role: Primary Care Nurse Care Team Related Persons Name: JOEL BRIZUELA Address: [address] [address]
--- OUTSIDE RECORDS SUMMARY | 2023-12-10 00:43 | XMS_ITS | Continuity of Care Document ---
Author Organization [facility] Address [address] [place] [address]- Care Team Providers Care Transplant Immunologist Name Role Phone Claire Trujillo MD Primary Care Physician [phone] [place] [facility] [place] 03/28/[address] [address]- [facility] Allergies, Adverse Reactions, Alerts Substance Reaction Severity Status NKA Active Immunizations Given and Recorded Vaccine Date Status Refusal Reason hepatitis B adult vaccine 04/17/19 Given hepatitis B adult vaccine 11/08/17 Given influenza virus vaccine, inactivated 04/17/19 Give n influenza virus vaccine, inactivated 06/22/16 Give n influenza virus vaccine, inactivated 11/01/15 Give n tetanus/diphtheria/pertussis, acel(Tdap) 01/11/17 Given pneumococcal 23-valent vaccine 01/11/17 Given Not Given Vaccine Date Status Refusal Reason pneumococcal 23-valent vaccine 12/13/13 Not Given Patient Refuses Medications acetaminophen 500 mg oral tablet 1 tablet, By Mouth, 3 times a day, # 50 each, 1 Refills, Soft Stop, 08/06/19 13:20:00 EST, [facility], 165, cm, 07/21/19 14:31:00 EST, Height, 91, kg, 06/19/19 16:55:00 EST, Dry Weight Start Date: 08/06/19 Status: Ordered Admelog SoloStar 100 units/mL injectable solution See Instructions, 4 units if over 120; 6 at 200; 8 at 300; max 12/day, # 6 mL, 11 Refills, Maintenance, 04/17/19 11:13:10 EDT, Injection Start Date: 04/17/19 Status: Ordered Alcohol Pads See Instructions, # 11 each, Maintenance, To test 3 times a day and with symptoms Dx: T2DM ICD10: E11.9 duration: 52 weeks, 08/29/19 14:35:00 EST, Compound, 165, cm, 07/21/19 14:31:00 EST, Height, 91, kg, 06/19/19 16:55:00 EST, Dry Weight Start Date: 08/29/19 Status: Ordered Aspirin Enteric Coated 81 mg oral delayed release tablet See Instructions, # 30 each, Refills 11 Tot. Refills 11, TAKE ONE TABLET BY MOUTH DAILY, [facility] Start Date: 04/16/19 Status: Ordered calcium (as carbonate)-vitamin D 500 mg-400 intl units oral tablet 1 tablet, By Mouth, 2 times a day, # 60 tablet, 5 Refills, Maintenance, 02/27/20 9:35:00 EDT, Tablet, [facility], 1 tablet By Mouth 2 times a day, 165, cm, 01/12/20 16:41:00 EDT, Height, 91, kg, 06/19/19 16:55:00 EST, Dry Weight Start Date: 02/27/20 Status: Ordered FLUoxetine 20 mg oral capsule [...] PLUS 1 MORE TIME NEEDED FOR SYMPTOMS, [facility] Start Date: 04/21/19 Status: Ordered FREESTYLE LANCETS 100CT See Instructions, # 100 each, Refills 11 Tot. Refills 11, USE DIRECTED FOR TYPE 1 DIABETES, KEVIN,[facility] Start Date: 03/18/19 Status: Ordered Freestyle [...] cm, 07/21/19 14:31:00 EST, Height, 91, kg, 12... Start Date: 01/07/20 Status: Ordered Freestyle Vladislav [...] 60 capsule, Refills 11, Tot. Refills 11, Maintenance, 07/28/19 15:59:00 EST, Route to Pharmacy Electronically, [facility], 165, cm, 07/21/19 14:31:00 EST, Height, 91, kg, 06/19/19 16:55:00 EST, Dry We... Start Date: 07/28/19 Stop Date: 07/22/20 Status: Ordered isosorbide mononitrate 30 mg oral tablet, extended release 1 tablet = 30 mg, By Mouth, Daily in AM, # 30 tablet, 11 Refills, Maintenance, 02/23/20 12:51:00 EDT, [facility], 165, cm, 01/12/20 16:41:00 EDT, Height, 91, kg, 06/19/19 16:55:00 EST, Dry Weight Start Date: 02/23/20 Stop Date: 02/17/21 Status: Ordered Lantus Solostar Pen 100 units/mL subcutaneous solution = 15 units, Subcutaneous Injection, Daily at bedtime, # 9 mL, 11 Refills, Maintenance, 04/17/19 11:12:31 EDT, Injection Start Date: 04/17/19 Stop Date: 04/11/20 Status: Ordered Lipitor 80 mg oral tablet = 80 mg, By Mouth, Daily at bedtime, 0 Refills, Maintenance, 01/29/19 14:52:58 EDT, Tablet Start Date: 01/29/19 Status: Ordered lisinopril 10 mg oral tablet 1, tablet, By Mouth, Daily, # 90 tablet, Refills 3, Tot. Refills 3, Maintenance, 11/05/19 18:37:00 EDT, Route to Pharmacy Electronically, [facility], 165, cm, 07/21/19 14:31:00 EST, Height, 91, kg, 06/19/19 16:55:00 EST, Dry Weight Start Date: 11/05/19 Stop Date: 10/30/20 Status: Ordered shower bars shower bars, See Instructions, # 2 each, Refills 0, Tot. Refills 0, Maintenance, dx: T1DM with severe neuropathy ICD10: E10.40 duration: 52 weeks, 01/23/20 11:53:00 EDT, Supply Start Date: 01/23/20 Status: Ordered shower chair shower chair, See Instructions, # 1 each, Refills 0, Tot. Refills 0, Maintenance, diagnosis: diabetic neuropathy, T1DM ICD10: E10.42 duration: 99 weeks, 01/13/20 14:32:00 EDT, Supply Start Date: 01/13/20 Status: Ordered Toprol XL 25 mg oral tablet, extended release 25 mg, 1, tablet, By Mouth, Daily in AM, # 30 tablet, Refills 5, Tot. Refills 5, Maintenance, 02/03/20 10:00:00 EDT, Route to Pharmacy Electronically, [facility], 165, cm, 01/12/20 16:41:00 EDT, Height, 91, kg, 06/19/19 16:55:00 EST, Dry Weight Start Date: 02/03/20 Stop Date: 08/01/20 Status: Ordered walker with wheels and brakes walker with wheels and brakes, See Instructions, # 1 each, Refills 0, Tot. Refills 0, Maintenance, dx: diabetic neuropathy, T1DM ICD10: E10.42 duration: 99 weeks, 01/27/20 16:37:00 EDT, Supply Start Date: 01/27/20 Status: Ordered Problem List Condition Effective Dates Status Health Status Inform ant Diabetic peripheral neuropathy(Confirmed) Active Diabetic nephropathy(Confirmed) Active Dysphagia(Confirmed) Active Hallucinations(Confirmed) Active Hypertension(Confirmed) Active Anxiety and depression(Confirmed) Active Care coordination N-CP C are Management Bre Skinner, CC [phone](Confirmed) 02/02/19 Active Thrombocytopenia(Confirmed) Active Type 1 diabetes mellitus(Confirmed) Active Social History Social History Type Response Smoking Status Never (less than 100 in lifetime) entered on: 06/19/19 Sex
--- OUTSIDE RECORDS SUMMARY | 2023-12-10 00:43 | XMS_ITS | Continuity of Care Document ---
Author Organization [facility] Address [address] [place] [address]- Care Team Providers Care Technical Staff Assistant Name Role Phone Claire Trujillo MD Primary Care Physician En[place] [facility] [place] Date(s): 07/28/20 - 08/27/[address] [address] Allergies, Adverse Reactions, Alerts Substance Reaction Severity [...] 06/30/20 18:54:00 EST, [facility], 163, cm, 10/07/20 22:04:00 EDT, Height, 91, kg, 04/19/20 23:16:00 [...] 5 Refills, Maintenance, 08/18/20 16:04:00 EST, Tablet, [facility], 1 tablet By Mouth 2 times a day, 163, cm, 04/21/20 22:04:00 EDT, Height, 91, kg,04/19/20 23:16:00 EDT, Dry Weight Start Date: 08/18/20 Status: Ordered FLUoxetine 20 mg oral capsule 1, capsule, By Mouth, Daily, # 90 capsule, Refills 3, Tot. Refills 3, Maintenance, 11/05/19 18:38:00 EDT, Route to Pharmacy Electronically, [facility], 165, cm, 07/21/19 14:31:00 EST, Height, [...] Maintenance, 08/18/2115:13:00 EST, Route to Pharmacy Electronically, [facility], 163, cm, 04/21/20 22:04:00 EDT, Height, 91, kg, 04/19/20 23:16:00 EDT, Dry Weight Start Date: 08/18/20 Status: Ordered Humalog 100 u/ml subcutaneous injection See Instructions, take before meals (three times a day) per sliding scale 4 units if over 120; 6 at200; 8 at 300; 12 if 400 max 60 units/ day, # 6 mL, 2 Refills, Maintenance, 07/19/20 13:40:00 EST, [facility], d/c Ademlog;, 163, cm, 04/21/20... Start Date: 07/19/20 Status: Ordered isosorbide mononitrate 30 mg oral tablet, extended release 1 tablet = 30 mg, By Mouth, Daily in AM, # 30 tablet, 11 Refills, Maintenance, 02/23/20 12:51:00 EDT, [facility], 165, cm, 01/12/20 16:41:00 EDT, Height, 91, kg, 06/19/19 16:55:00 EST, Dry Weight Start Date: 02/23/20 Stop Date: 02/17/21 Status: Ordered Lantus Solostar Pen 100 units/mL subcutaneous solution = 15 units, Subcutaneous Injection, Daily at bedtime, # 9 mL, 2 Refills, Maintenance, 05/07/20 13:08:00 EDT, Injection, [facility], 163, cm, 04/21/20 22:04:00 EDT, Height, 91, kg, 04/19/20 23:16:00 EDT, Dry Weight Start Date: 05/07/20 Stop Date: 08/05/20 Status: Ordered Lipitor 80 mg oral tablet 1 tablet = 80 mg, By Mouth, Daily at bedtime, # 90 tablet, 3 Refills, Maintenance, 06/09/20 13:06:00 EST, Tablet, [facility], Partial fill upon patient request, 163, cm, 04/21/20 22:04:00 EDT, Height, 91, kg, 04/19/20 23:16:00 EDT, Dry Weight Start Date: 06/09/20 Stop Date: 06/04/21 Status: Ordered lisinopril 10 mg oral tablet 1, tablet, By Mouth, Daily, # 90 tablet, Refills 3, Tot. Refills 3, Maintenance, 11/05/19 18:37:00 EDT, Route to Pharmacy Electronically, [facility], 165, cm, 07/21/19 14:31:00 EST, Height, [...] weight: 91kg, 08/26/20 16:56:00 EST, sent to [facility]. Start Date: 08/26/20 Status: Ordered shower bars [...] 08/04/20 14:13:00 EST, Route to Pharmacy Electronically, [facility], 163, cm, 04/21/20 22:04:00 EDT, Height, [...] BHN-BHCP C are Management Bre Skinner, CC [phone](Confirmed) 02/02/19 Active Thrombocytopenia(Confirmed) Active Type 1 diabetes mellitus(Confirmed) Active Social History Social History Type Response Smoking Status Never (less than 100 in lifetime) entered on: 06/19/19 Sex
--- OUTSIDE RECORDS SUMMARY | 2023-12-10 00:43 | XMS_ITS | Continuity of Care Document ---
Author Organization [facility] Address [address] [place] [address]- Care Team Providers Care Gelatin Maker Utility Name Role Phone Claire Trujillo MD Primary Care Physician Encounter [facility] [place] [facility] [id number] Date(s): 12/10/20 - 01/09/[address] [address] Attending Physician: AdmUche sheth Admitting Physician: AdmtrUche Referring Physician: Admtr, Ar8 Allergies, Adverse Reactions, [...] Type II DM, ICD10 E11.65. [facility] 14:47:00 EDT, Supply Start [...] PLUS 1 MORE TIME NEEDED FOR SYMPTOMS, [facility] Start Date: 04/21/19 Status: Ordered FREESTYLE LANCETS 100CT See Instructions, # 100 each, Refills 11 Tot. Refills 11, USE DIRECTED FOR TYPE 1 DIABETES, KEVIN,[facility] Start Date: 03/18/19 Status: Ordered Freestyle [...] 01/06/21 12:38:00 EDT, Route to Pharmacy Electronically, [facility], 163, cm, 01/03/21 10:40:00 EDT, Height, 91, kg, 04/19/20 23:16:00 EDT, Dry Weight Start Date: 01/06/21 Status: Ordered Hand Held Shower Head Hand Held Shower Head, See Instructions, # 1 each, Refills 0, Tot. Refills 0, Maintenance, diagnosis: diabetic neuropathy, T1DM. ICD10: E10.42 duration: 99 weeks. Fax to Cher[facility] ([facility]), 10/28/20 14:53:00 EDT, Supply Start Date: 10/28/20 Status: Ordered HumaLOG KwikPen 100 units/mL injectable solution See Instructions, INJECT UNDER THE SKIN DIRECTED. FOUR UNITS IF BS OVER 120 ,6 UNITS IF BS AT 200 ,8 UNITS IF BS AT 300, 12 UNITS IF BS 400 THREE TIMES DAILY BEFORE MEALS. MAXIMUM 60 UNITS / DAY, # 15 mL, 11 Refills, Maintenance, [facility], 16... Start Date: 10/25/20 Status: Ordered isosorbide mononitrate 30 mg oral tablet, extended release 1 tablet = 30 mg, By Mouth, Daily in AM, for 30 days, # 30 tablet, 11 Refills, Hard Stop 02/17/21 12:51:00 EDT, 02/23/20 12:51:00 EDT, [facility], 165, cm, [...] 10/30/20 18:37:00 EDT, Route to Pharmacy Electronically, [facility], 163, cm, 04/21/20 22:04:00 EDT, Height, [...] weight: 91kg, 08/26/20 16:56:00 EST, sent to [facility].... Start Date: 08/26/20 Status: Ordered [...] 1, tablet, By Mouth, Daily in AM, for 30 days, # 30 tablet, Refills 5, Tot. Refills 5, Hard Stop 01/31/21 14:13:00 EDT, 08/04/20 14:13:00 EST, Route to Pharmacy Electronically, [facility],163, cm, 04/21/20 22:04:00 EDT, Height, 91, kg, ... Start Date: 08/04/20 Stop Date: 01/31/21 Status: Ordered Toprol XL 50 mg oral tablet, extended release 75 mg, 1.5, tablet, By Mouth, Daily, # 90 tablet, Refills 3, Tot. Refills 3, Maintenance, 01/03/21 10:57:00 EDT, Route to Pharmacy Electronically, [facility], Partial fill upon patient request ifthe prescription is for a schedule II opioid drug.,... Start Date: 01/03/21 Status: Ordered traZODone 50 mg oral tablet 1, tablet, By Mouth, Daily at bedtime, PRN, # 30 tablet, Refills 5, Tot. Refills 0, Maintenance, ASNEEDED FOR SLEEP, 01/05/21 15:11:00 EDT, Route to Pharmacy Electronically, [facility], 163, cm,01/03/21 10:40:00 EDT, Height, 91, [...] BHN-BHCP C are Management Bre Skinner, CC [phone](Confirmed) 02/02/19 Active Thrombocytopenia(Confirmed) Active Type 1 diabetes mellitus(Confirmed) Active Social History Social History Type Response Smoking Status Never (less than 100 in lifetime) entered on: 06/19/19 Sex
--- OUTSIDE RECORDS SUMMARY | 2023-12-10 00:43 | XMS_ITS | Continuity of Care Document ---
Author Organization [facility] Address [address] [place] [id number]- Care Team Providers Care Sales Relationship Manager Name Role Phone Claire Trujillo MD Primary Care Physician [phone] [facility] Date(s): 10/25/23 - 11/24/[address] [address]- Allergies, Adverse Reactions, Alerts Substance Reaction Severity Status metFORMIN 1 GI symptoms Active 1GI intolreance Immunizations Given and Recorded Vaccine Date Status Refusal Reason zoster vaccine, inactivated 1 09/21/23 Recorded tetanus/diphtheria/pertussis, acel(Tdap) 2 09/21/23 Recorded tetanus/diphtheria/pertussis, acel(Tdap) 01/11/17 Given pneumococcal 20-valent conjugate vaccine 3 09/21/23 Recorded SARS-CoV-2 mRNA (cyevovv-zadq-oqxjv) vax 03/03/22 Given SARS-CoV-2 mRNA (nbjevqk-bgsl-ryonw) vax 08/27/21 Given SARS-CoV-2 (COVID-19) mRNA BNT-162b2 [...] 0 Refills, Maintenance, 11/27/22 11:10:00 EDT, Lotion, [facility], Partial fill upon patient request if the prescri... Start Date: 11/27/22 Status: Ordered Ankle foot orthostis Ankle foot orthostis, See Instructions, # 1 each, Refills 0, Tot. Refills 0, Maintenance, E11.40 needed for 99 weeks Fax to [facility], 09/24/23 17:56:00 EDT, Supply Start Date: 09/24/23 Status: Ordered aspirin 81 mg oral delayed release tablet 81 mg, 1, tablet, By Mouth, Daily, blood thinner/ hace la leonard mas cullen - para proteger el paty/ arterias tapadas en el paty, # 90 tablet, Refills 3, Tot. Refills 3, Maintenance, 09/09/23 9:59:00 EST, Route to Pharmacy Electronically, [facility]... Start Date: 09/09/23 Stop Date: 09/03/24 [...] 05/02/23 16:08:00 EDT, Route to Pharmacy Electronically, [facility], Partial fill upon patient request if the pr... Start Date: 05/02/23 Stop Date: 07/01/23 Status: Ordered docusate sodium 100 mg oral tablet 1 tablet = 100 mg, By Mouth, 2 times a day, PRN for constipation, # 60 tablet, 0 Refills, Maintenance, 11/13/23 13:28:00 EDT, Tablet, [facility]/pharmacy #[id number], Partial fill upon patient request if the prescription is for a schedule II opioid drug., 165, cm,... Start Date: 11/13/23 Status: Ordered famotidine 10 mg oral tablet 1 tablet = 10 mg, By Mouth, 2 times a day, # 60 tablet, 1 Refills, Maintenance, 11/21/23 14:38:00 EDT, Tablet, [facility]/pharmacy #[id number], Partial fill upon patient request if the prescription is for a schedule II opioid drug., 165, cm, 11/21/23 14:15:00 EDT,... Start Date: 11/21/23 Status: Ordered finasteride 5 mg oral tablet = 5 mg, By Mouth, Daily, # 30 tablet, 2 Refills, Maintenance, 12/13/23 12:34:00 EDT, Tablet, [facility]/pharmacy #[id number], Partial fill upon patient request if the prescription is for a schedule II opioid drug., 165, cm, 11/21/23 14:15:00 EDT, Height, 77, kg, 0... Start Date: 12/13/23 Stop Date: 03/12/24 Status: Ordered finasteride 5 mg oral tablet = 5 mg, By Mouth, Daily, for 30 days, # 30 tablet, 0 Refills, Hard Stop 12/13/23 12:34:00 EDT, 11/13/23 12:34:00 EDT, Tablet, [facility]/pharmacy #[id number], Partial fill upon patient request if the prescriptionis for a schedule II opioid drug., 165, cm, ... Start Date: 11/13/23 Stop Date: 12/13/23 Status: Ordered Flomax 0.4 mg oral capsule 0.8 mg, 2, capsule, By Mouth, Daily, # 180 capsule, Refills 1, Tot. Refills 1, Maintenance, 10/03/23 13:04:00 EDT, Route to Pharmacy Electronically, [facility]., Partial fill upon patient request if the [...] E10.42 duration: 99 weeks. Fax to [facility], 05/11/21 11:23:00 EDT, Supply Start Date: 05/11/21 Status: Ordered Home blood pressure monitor Home blood pressure monitor, See Instructions, # 1 each, Refills 0, Tot. Refills 0, Maintenance, ICD 10 I95.1; E11. 43 ALEIDA: [facility] 12:53:00 EST, Supply Start Date: [...] 09/09/23 9:57:00 EST, Route to Pharmacy Electronically, [facility], Partial fill upon patien... Start Date: 09/09/23 Stop Date: 09/03/24 Status: Ordered Jardiance 25 mg oral tablet 1 tablet = 25 mg, By Mouth, Daily in AM, # 90 tablet, 3 Refills, Maintenance, 09/09/23 9:59:00 EST,[facility]., Partial fill upon patient request if the [...] 09/27/24 13:03:00 EDT, 10/03/23 13:03:00 EDT, Injection, [facility]., increase in dose, 166, cm, 09/24/23 15:24:00... Start Date: 10/03/23 Stop Date: 09/27/24 Status: Ordered Lantus Solostar Pen 100 units/mL subcutaneous solution = 23 units, Subcutaneous Injection, Daily at bedtime, Insulina de 24 horas., # 15 mL, 1 Refills, Maintenance, 04/26/24 16:08:00 EDT, Injection, [facility]., No insurance (Medicare not active until 06/15). Please dispense via 340B., 165,... Start Date: 04/26/24 Status: Ordered Lipitor 80 mg oral tablet 1 tablet = 80 mg, By Mouth, Daily at bedtime, para colesterol / proteger el paty/ arterias tapadas en el paty, # 90 tablet, 3 Refills, Maintenance, 09/09/23 9:59:00 EST, Tablet, [facility]., Partial fill upon patient request, 166,... Start [...] 09/09/23 9:57:00 EST, [facility] Start Date: 09/09/23 Stop Date: 09/03/24 Status: Ordered MiraLax oral powder for reconstitution = 17 Gm, By Mouth, Daily, for 30 days, # 510 Gm, 0 Refills, Acute 12/13/23 13:28:00 EDT, 11/13/23 13:28:00 EDT, REC Powder, [facility]/pharmacy #[id number], Partial fill upon patient request if the prescription is for a schedule II opioid drug., 17 Gm By Mouth Martha... Start Date: 11/13/23 Stop Date: 12/13/23 Status: Ordered morphine 15 mg/8 to 12 hr oral tablet, extended release 1 tablet = 15 mg, By Mouth, Every 12 hours, # 56 tablet, 0 Refills, Maintenance, 11/21/23 17:14:00 EDT, ER Tablet, [facility]/pharmacy #[id number], Partial fill upon patient request if the prescription is for a schedule II opioid drug. in addition to oxycodone ; o... Start Date: 11/21/23 Stop Date: 12/19/23 Status: Ordered mupirocin 2% topical ointment 1 application, Topically, 3 times a day, for 7 days, # 22 Gm, 0 Refills, Acute 11/28/23 14:34:00 EDT, 11/21/23 14:34:00 EDT, Ointment, [facility]/pharmacy #[id number], Partial fill upon patient request if [...] 11/26/23 14:36:00 EDT, 11/21/23 14:36:00 EDT, Tablet, [facility]/pharmacy #[id number], Partial fill upon patient request if [...] Acute 12/19/23 17:14:00 EDT, 11/21/23 17:14:00 EDT, [facility]/pharmacy #[id number], Partial fill upon patient request ifthe prescription is for a schedule II opioid drug.... Start Date: 11/21/23 Stop Date: 12/19/23 Status: Ordered powerwheel chair powerwheel chair, See Instructions, # 1 each, Refills 0, Tot. 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 99 weeks fax to [facility], 09/24/23 17:56:00 EDT, Supply Start Date: 09/24/23 [...] weight: 93kg, 11/21/21 16:40:00 EDT, sent to [facility] Start Date: 11/21/21 Status: Ordered senna - oral tablet 2 tablet, By Mouth, Daily at bedtime, PRN for constipation, for 30 days, # 60 tablet, 0 Refills, Acute 12/13/23 13:29:00 EDT, 11/13/23 13:29:00 EDT, Tablet, [facility]/pharmacy #[id number], Partial fill upon patient request if the prescription is for a schedule II... Start Date: 11/13/23 Stop Date: 12/13/23 Status: Ordered Senna 8.6 mg oral tablet 17.2 mg, 2, tablet, By Mouth, Daily, for 30 days, # 60 tablet, Refills 0, Tot. Refills 0, Acute, 12/13/23 12:34:00 EDT, 11/13/23 12:34:00 EDT, Route to Pharmacy Electronically, [facility]/pharmacy #[id number] Tablet, Partial fill upon patient request [...] Team Personnel Name: Sorin Moser RN Position: [facility] RN Member Role: Primary Care Nurse Name: Ya Wilson RN Position: [facility] RN Member Role: Primary Care Nurse Name: Brandi Wei RN Position: [facility] RN Member Role: Primary Care Nurse Name: Valentina Leiva RN Position: [facility] SN RN Member Role: Primary Care Nurse Name: Macarena Bedolla Position: [facility] Outreach Member Role: Lifetime Consulting Physician Name: Abigail Yang RN Position: [facility] Onco RN Member Role: Primary Care Nurse Name: Claire Trujillo MD Position: [facility] Physician - Primary Care Member Role: PCP Address: Address: [address] [place] [id number]- Name: Heidi Dao Position: [facility] RN Member Role: Primary Care Nurse Care Team Related Persons Name: JOEL BRIZUELA Address: [address] [address]
--- OUTSIDE RECORDS SUMMARY | 2023-12-10 00:43 | XMS_ITS | Continuity of Care Document ---
Author Organization [facility] Address [address] [place] [address]- Care Team Providers Care Transfusion Nurse Name Role Phone Claire Trujillo MD Primary Care Physician [phone] Encounter [facility] Date(s): 09/28/23 - 10/28/[address] [address]- Allergies, Adverse Reactions, Alerts Substance Reaction Severity Status metFORMIN 1 GI symptoms Active 1GI intolreance Immunizations Given and Recorded Vaccine Date Status Refusal Reason zoster vaccine, inactivated 1 09/21/23 Recorded tetanus/diphtheria/pertussis, acel(Tdap) 2 09/21/23 Recorded tetanus/diphtheria/pertussis, acel(Tdap) 01/11/17 Given pneumococcal 20-valent conjugate vaccine 3 09/21/23 Recorded SARS-CoV-2 mRNA (bonpnrc-vwtm-vvmqd) vax 03/03/22 Given SARS-CoV-2 mRNA (uvxvbuw-onqi-saocu) vax 08/27/21 Given SARS-CoV-2 (COVID-19) mRNA BNT-162b2 [...] 0 Refills, Maintenance, 11/27/22 11:10:00 EDT, Lotion, [facility], Partial fill upon patient request if the prescri... Start Date: 11/27/22 Status: Ordered Ankle foot orthostis Ankle foot orthostis, See Instructions, # 1 each, Refills 0, Tot. Refills 0, Maintenance, E11.40 needed for 99 weeks Fax to [facility], 09/24/23 17:56:00 EDT, Supply Start Date: 09/24/23 Status: Ordered aspirin 81 mg oral delayed release tablet 81 mg, 1, tablet, By Mouth, Daily, blood thinner/ hace la leonard avileza - para proteger el paty/ arterias tapadas en el paty, # 90 tablet, Refills 3, Tot. Refills 3, Maintenance, 09/09/23 9:59:00 EST, Route to Pharmacy Electronically, [facility]... Start Date: 09/09/23 Stop Date: 09/03/24 [...] 05/02/23 16:08:00 EDT, Route to Pharmacy Electronically, [facility], Partial fill upon patient request if the pr... Start Date: 05/02/23 Stop Date: 07/01/23 Status: Ordered Flomax 0.4 mg oral capsule 0.8 mg, 2, capsule, By Mouth, Daily, # 180 capsule, Refills 1, Tot. Refills 1, Maintenance, 10/03/23 13:04:00 EDT, [facility] upon patient request [...] E10.42 duration: 99 weeks. Fax to [facility] ([facility], 05/11/21 11:23:00 EDT, Supply Start Date: 05/11/21 Status: Ordered Home blood pressure monitor Home blood pressure monitor, See Instructions, # 1 each, Refills 0, Tot. Refills 0, Maintenance, ICD 10 I95.1; E11. 43 ALEIDA: 99 [facility] 12:53:00 EST, Supply Start Date: [...] 09/09/23 9:57:00 EST, Route to Pharmacy Electronically, [facility], Partial fill upon patien... Start Date: 09/09/23 Stop Date: 09/03/24 Status: Ordered Jardiance 25 mg oral tablet 1 tablet = 25 mg, By Mouth, Daily in AM, # 90 tablet, 3 Refills, Maintenance, 09/09/23 9:59:00 EST,[facility], Partial fill upon patient request if [...] 09/27/24 13:03:00 EDT, 10/03/23 13:03:00 EDT, Injection, [facility]., increase in dose, 166, cm, 09/24/23 15:24:00... Start Date: 10/03/23 Stop Date: 09/27/24 Status: Ordered Lantus Solostar Pen 100 units/mL subcutaneous solution = 23 units, Subcutaneous Injection, Daily at bedtime, Insulina de 24 horas., # 15 mL, 1 Refills, Maintenance, 04/26/24 16:08:00 EDT, Injection, [facility], No insurance (Medicare not active until 06/15). Please dispense via 340B., 165,... Start Date: 04/26/24 Status: Ordered Lipitor 80 mg oral tablet 1 tablet = 80 mg, By Mouth, Daily at bedtime, para colesterol / proteger el paty/ arterias tapadas en el paty, # 90 tablet, 3 Refills, Maintenance, 09/09/23 9:59:00 EST, [facility] fill upon patient request, 166,... Start [...] 09/09/23 9:57:00 EST, Route to Pharmacy Electronically, [facility] Start Date: 09/09/23 Stop Date: 09/03/24 Status: Ordered morphine 15 mg/8 to 12 hr oral tablet, extended release 1 tablet = 15 mg, By Mouth, Every 12 hours, # 56 tablet, 0 Refills, Maintenance, 10/25/23 21:13:00 EDT, ER Tablet, [facility]/pharmacy #[id number], Partial fill upon patient request [...] Replace Required... Start Date: 06/26/23 Status: Ordered one pair Diabetic Shoes with [...] Acute 11/22/23 21:13:00 EDT, 10/25/23 21:13:00 EDT, [facility]/pharmacy #[id number], Partial fill upon patient request ifthe prescription is for a schedule II opioid drug.... Start Date: 10/25/23 Stop Date: 11/22/23 Status: Ordered powerwheel chair powerwheel chair, See Instructions, # 1 each, Refills 0, Tot. 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 Start Date: 11/21/21 Status: Ordered shower bars [...] Team Personnel Name: Sorin Moser RN Position: [facility] RN Member Role: Primary Care Nurse Name: Ya Wilson RN Position: [facility] RN Member Role: Primary Care Nurse Name: Brandi Wei RN Position: [facility] RN Member Role: Primary Care Nurse Name: Valentina Leiva RN Position: [facility] SN RN Member Role: Primary Care Nurse Name: Macarena Bedolla Position: [facility] Outreach Member Role: Lifetime Consulting Physician Name: Abigail Yang RN Position: [facility] Onco RN Member Role: Primary Care Nurse Name: Claire Trujillo MD Position: [facility] Physician - Primary Care Member Role: PCP Address: Address: [address] [place] [id number]- Name: Heidi Dao Position: [facility] RN Member Role: Primary Care Nurse Care Team Related Persons Name: JOEL BRIZUELA Address: [address] [address]
--- OUTSIDE RECORDS SUMMARY | 2023-12-10 00:43 | XMS_ITS | Continuity of Care Document ---
Author Organization [facility] Address [address] [place] [address]- Care Team Providers Care Mobile Home Installer Name Role Phone Cassandra WHITE, Claire Primary Care Physician Encounter [facility] Date(s): 10/06/20 - 11/05/[address] [address]- Allergies, Adverse Reactions, Alerts Substance Reaction Severity [...] Type II DM, ICD10 E11.65. Fax to [facility], 10/28/20 14:47:00 EDT, Supply Start Date: 10/28/20 [...] 11, USE [facility]: [facility]/18[facility] Status: Ordered [...] Maintenance, 08/18/2115:13:00 EST, Route to Pharmacy Electronically, [facility], 163, cm, 04/21/20 22:04:00 EDT, Height, 91, kg, 04/19/20 23:16:00 EDT, Dry Weight Start Date: 08/18/20 Status: Ordered Hand Held Shower Head Hand Held Shower Head, See Instructions, # 1 each, Refills 0, Tot. Refills 0, Maintenance, diagnosis: diabetic neuropathy, T1DM. ICD10: E10.42 duration: 99 weeks. Fax to [facility] ([facility]), 10/28/20 14:53:00 EDT, Supply Start Date: 10/28/20 Status: Ordered HumaLOG KwikPen 100 units/mL injectable solution See Instructions, INJECT UNDER THE SKIN DIRECTED. FOUR UNITS IF BS OVER 120 ,6 UNITS IF BS AT 200 ,8 UNITS IF BS AT 300, 12 UNITS IF BS 400 THREE TIMES DAILY BEFORE MEALS. MAXIMUM 60 UNITS / DAY, # 15 mL, 11 Refills, Maintenance, [facility], 16... Start Date: 10/25/20 Status: Ordered isosorbide mononitrate 30 mg oral tablet, extended release 1 tablet = 30 mg, By Mouth, Daily in AM, # 30 tablet, 11 Refills, Maintenance, 02/23/20 12:51:00 EDT, [facility], 165, cm, 01/12/20 16:41:00 EDT, Height, 91, kg, 06/19/19 16:55:00 EST, Dry Weight Start Date: 02/23/20 Stop Date: 02/17/21 Status: Ordered Lantus Solostar Pen 100 units/mL subcutaneous solution = 15 units, Subcutaneous Injection, Daily at bedtime, # 9 mL, 2 Refills, Maintenance, 05/07/20 13:08:00 EDT, Injection, [facility], 163, cm, 04/21/20 22:04:00 EDT, Height, 91, kg, 04/19/20 23:16:00 EDT, Dry Weight Start Date: 05/07/20 Stop Date: 08/05/20 Status: Ordered Lipitor 80 mg oral tablet 1 tablet = 80 mg, By Mouth, Daily at bedtime, # 90 tablet, 3 Refills, Maintenance, 06/09/20 13:06:00 EST, Tablet, [facility], Partial fill upon patient request, 163, cm, 04/21/20 22:04:00 EDT, Height, 91, kg, 04/19/20 23:16:00 EDT, Dry Weight Start Date: 06/09/20 Stop Date: 06/04/21 Status: Ordered lisinopril 10 mg oral tablet 1, tablet, By Mouth, Daily, # 90 tablet, Refills 1, Tot. Refills 1, Maintenance, 10/30/20 18:37:00 EDT, Route to Pharmacy Electronically, [facility], 163, cm, 04/21/20 22:04:00 EDT, [...] weight: 91kg, 08/26/20 16:56:00 EST[facility] Start Date: 08/26/20 Status: Ordered shower bars [...] 08/04/20 14:13:00 EST, Route to Pharmacy Electronically, [facility], 163, cm, 04/21/20 22:04:00 EDT, Height, [...] N-BHCP C are Management Bre Skinner, CC [phone](Confirmed) 02/02/19 Active Thrombocytopenia(Confirmed) Active Type 1 diabetes mellitus(Confirmed) Active Social History Social History Type Response Smoking Status Never (less than 100 in lifetime) entered on: 06/19/19 Sex
--- OUTSIDE RECORDS SUMMARY | 2023-12-10 00:43 | XMS_ITS | Continuity of Care Document ---
Author Organization [facility] Address [address] [place] [address]- Care Team Providers Care Floor Covering Printer Name Role Phone Claire Trujillo MD Primary Care Physician [phone] Encounter [facility] Date(s): 04/30/23 - 05/30/[address] [address]- Allergies, Adverse Reactions, Alerts Substance Reaction Severity Status metFORMIN 1 GI symptoms Active 1GI intolreance Immunizations Given and Recorded Vaccine Date Status Refusal Reason SARS-CoV-2 mRNA (hbxpkyx-bhyi-donvb) vax 03/03/22 Given SARS-CoV-2 mRNA (dmuxtnx-chbv-uwuzt) vax 08/27/21 Given SARS-CoV-2 (COVID-19) mRNA BNT-162b2 [...] Recorded 1Early/Late Reason: Med Not Available Medications 2 boxes [...] 0 Refills, Maintenance, 11/27/22 11:10:00 EDT, [facility], [facility] fill upon patient request if the prescri... Start Date: 11/27/22 Status: Ordered aspirin 81 mg oral delayed release tablet 81 mg, 1, tablet, By Mouth, Daily, blood thinner/ hace la leonard mas cullen - para proteger el paty/ arterias tapadas en el paty, # 90 tablet, Refills 3, Tot. Refills 3, Maintenance, 05/02/23 16:07:00 EDT, Route to Pharmacy Electronically, [facility]... Start Date: 05/02/23 Stop Date: 04/26/24 Status: Ordered bed liners bed liners, See [...] 05/02/23 16:08:00 EDT, Route to Pharmacy Electronically, [facility], Partial fill upon patient request if the pr... Start Date: 05/02/23 Stop Date: 07/01/23 Status: Ordered Flomax 0.4 mg oral capsule 0.8 mg, 2, capsule, By Mouth, Daily, # 180 capsule, Refills 1, Tot. Refills 1, Maintenance, 05/02/23 16:07:00 EDT, Route to Pharmacy Electronically, [facility], Partial fill upon patient request if the prescription is for a schedule I... Start Date: 05/02/23 Stop Date: 10/29/23 Status: Ordered FreeStyle Vladislav 2 Monitor See [...] chequear la azucar noah vez al d patito antes de comer (en ayunas)., 11/23/22 14:10:00 [...] chequear la azucar noah vez al d patito antes de comer (en ayunas)., 11/23/22 14:10:00 EDT, Supply, 165,... Start Date: 11/23/22 Status: Ordered Hand Held Shower Head Hand Held Shower Head, See Instructions, # 1 each, Refills 0, Tot. Refills 0, Maintenance, diagnosis: diabetic neuropathy, T1DM. ICD10: E10.42 duration: 99 weeks. Fax to Cheryl ([facility], 05/11/21 11:23:00 EDT, Supply Start Date: 05/11/21 Status: Ordered Home blood pressure monitor Home blood pressure monitor, See Instructions, # 1 each, Refills 0, Tot. Refills 0, Maintenance, ICD 10 I95.1; E11. 43 ALEIDA: 99 [facility] 05/[facility]/22 12:53:00 EST, Supply Start Date: 05/25/22 Status: Ordered HumaLOG KwikPen 100 units/mL injectable solution See Instructions, Mealtime insulin; dose according to finger stick before meals FS 100-199: 5 unitsFS: 200-249: 6 units FS 250-299: 7 units FS above 300: 8 units, # 15 mL, 1 Refills, 05/15/23 10:16:00 EDT, [facility], No insur... Start Date: 05/15/23 Status: Ordered isosorbide mononitrate 30 mg oral tablet, extended release 30 mg, 1, tablet, By Mouth, Daily at bedtime, Para el paty. Noelle antes de acostarse., # 30 tablet, Refills 3, Tot. Refills 3, Maintenance, 05/02/23 16:07:00 EDT, Route to Pharmacy Electronically, [facility], Partial fill upon telma... Start Date: 05/02/23 Stop Date: 08/30/23 Status: Ordered Jardiance 25 mg oral tablet 1 tablet = 25 mg, By Mouth, Daily in AM, # 30 tablet, 5 Refills, Maintenance, 05/02/23 16:09:00 EDT, [facility], Partial fill upon patient request if the prescription is for a schedule II opioid drug., 165, cm, 04/16/23 8:59:00 EDT, H... Start Date: 05/02/23 Stop Date: 10/29/23 Status: Ordered Lantus Solostar Pen 100 units/mL subcutaneous solution = 23 units, Subcutaneous Injection, Daily at bedtime, for 30 days, Insulina de 24 horas., # 15 mL, 11 Refills, Hard Stop 04/26/24 16:08:00 EDT, 05/02/23 16:08:00 EDT, Injection, [facility], increase in dose, 165, cm, 04/16/23 8:59:00... Start Date: 05/02/23 Stop Date: 04/26/24 Status: Ordered Lantus Solostar Pen 100 units/mL subcutaneous solution = 23 units, Subcutaneous Injection, Daily at bedtime, Insulina de 24 horas., # 15 mL, 1 Refills, Maintenance, 04/26/24 16:08:00 EDT, Injection, [facility], No insurance (Medicare not active until 06/15). Please dispense via 340B., 165,... Start Date: 04/26/24 Status: Ordered Lipitor 80 mg oral tablet 1 tablet = 80 mg, By Mouth, Daily at bedtime, para colesterol / proteger el paty/ arterias tapadas en el paty, # 90 tablet, 3 Refills, Maintenance, 05/02/23 16:08:00 EDT, Tablet, [facility], Partial fill upon patient request, 16... Start Date: 05/02/23 Stop Date: 04/26/24 Status: Ordered medical alert system medical alert [...] tablet, Refills 3, Tot. Refills 3, Maintenance, 05/02/23 16:08:00 EDT, [facility], [facility] Start Date: 05/02/23 Stop Date: 04/26/24 Status: Ordered morphine 15 mg/8 to 12 hr oral tablet, extended release 1 tablet = 15 mg, By Mouth, Every 12 hours, # 56 tablet, 0 Refills, Maintenance, 05/16/23 13:46:00 EDT, ER Tablet, [facility]/pharmacy #[id number], Partial fill upon patient request if the prescription is for a schedule II opioid drug. in addition to oxycodone ; o... Start Date: 05/16/23 Stop Date: 06/13/23 Status: Ordered one pair Diabetic Shoes with [...] tablet, Refills 0, Tot. Refills 0, Acute 06/01/23 11:23:00 EST, for pain, 05/04/23 11:23:00 EDT, Route to Pharmacy Electronically, [facility]/pharmacy #[id number], Partial fill upon patient request... Start Date: 05/04/23 Stop Date: 06/01/23 Status: Ordered pullups - adult size medium [...] weight: 93kg, 11/21/21 16:40:00 EDT, sent to [facility]. Start Date: 11/21/21 Status: Ordered shower [...] Team Personnel Name: Sorin Moser RN Position: [facility] RN Member Role: Primary Care Nurse Name: Ya Wilson RN Position: [facility] RN Member Role: Primary Care Nurse Name: Brandi Wei RN Position: [facility] RN Member Role: Primary Care Nurse Name: Valentina Leiva RN Position: [facility] SN RN Member Role: Primary Care Nurse Name: Macarena Bedolla Position: [facility] Outreach Member Role: Lifetime Consulting Physician Name: Abigail Nuno RN Position: [facility] Onco RN Member Role: Primary Care Nurse Name: Claire Trujillo MD Position: [facility] Physician - Primary Care Member Role: PCP Address: Address: [address] [place] [id number]- Name: Heidi Dao Position: [facility] RN Member Role: Primary Care Nurse Care Team Related Persons Name: JOEL BRIZUELA Address: [facility] [address] [place] [id number]
--- OUTSIDE RECORDS SUMMARY | 2023-12-10 00:43 | XMS_ITS | Continuity of Care Document ---
Author Organization [facility] Address [address] [place] [address]- Care Team Providers Care Serologist Name Role Phone Claire Trujillo MD Primary Care Physician Encounter [facility] Date(s): 09/14/22 - 10/14/[address] [address]- Allergies, Adverse Reactions, Alerts Substance Reaction Severity Status metFORMIN 1 GI symptoms Active 1GI intolreance Immunizations Given and Recorded Vaccine Date Status Refusal Reason SARS-CoV-2 mRNA (uftmycr-kwxg-hnotk) vax 03/03/22 Given SARS-CoV-2 mRNA (gtkuqpn-ntow-ihsea) vax 08/27/21 Given SARS-CoV-2 (COVID-19) mRNA BNT-162b2 [...] EDT, Route to Pharmacy Electronically, [facility]... Start Date: 05/04/22 Status: Ordered bed liners [...] Moderate, Apply to legs for diabetic neuropathy. Vietnamese sig, # 60 Gm, 1 Refills, Maintenance, 06/06/22 9:44:00 EST, Cream, [facility], Partial fill upon patient request [...] capsule, Refills 0, Tot. Refills 0, Maintenance, 09/04/22 13:08:00 EST, Route to Pharmacy Electronically, [facility], Partial fill upon patient request if the prescription is for a schedule II... Start Date: 09/04/22 Stop Date: 12/03/22 Status: Ordered FreeStyle Vladislav 2 Monitor See Instructions, # 1 each, Maintenance, apply one sensor every 14 days; check glucose qid;E11.65, 05/04/22 13:58:00 EDT, Supply, 164, cm, 05/04/22 9:09:00 EDT, Height, 87.5, kg, 02/10/21 9:00:00 EDT, Dry Weight Start Date: 05/04/22 Status: Ordered FreeStyle Vladislav 2 Sensors See Instructions, # 2 each, Refills 11, Tot. Refills 11, Maintenance, apply one sensor every 14 days; check glucose qid;E11.65, 05/04/22 13:57:00 EDT, Supply, 164, cm, 05/04/22 9:09:00 EDT, Height, 87.5, kg, 02/10/21 9:00:00 EDT, Dry Weight Start Date: 05/04/22 Status: Ordered Hand Held Shower Head Hand Held Shower Head, See Instructions, # 1 each, Refills 0, Tot. Refills 0, Maintenance, diagnosis: diabetic neuropathy, T1DM. ICD10: E10.42 duration: 99 weeks. Fax to Cheryl ([facility]), 05/11/21 11:23:00 EDT, Supply Start Date: 05/11/21 Status: Ordered Home blood pressure monitor Home blood pressure monitor, See Instructions, # 1 each, Refills 0, Tot. Refills 0, Maintenance, ICD 10 I95.1; E11. 43 ALEIDA: 99 [facility] 05/25/22 12:53:00 EST, Supply Start Date: 05/25/22 Status: Ordered HumaLOG KwikPen 100 units/mL injectable solution See Instructions, Mealtime insulin; dose according to finger stick before meals FS 100-199: 5 unitsFS: 200-249: 6 units FS 250-299: 7 units FS above 300: 8 units, # 15 mL, 11 Refills, 06/01/22 10:46:00 EST, [facility]., 165, cm... Start Date: 06/01/22 Status: Ordered Jardiance 25 mg oral tablet 1 tablet = 25 mg, By Mouth, Daily in AM, # 30 tablet, 5 Refills, Maintenance, 06/01/22 10:45:00 EST, [facility], Partial fill upon patient request if the prescription is for a schedule II opioid drug., 165, cm, 06/01/22 10:18:00 EST, H... Start Date: 06/01/22 Stop Date: 11/28/22 Status: Ordered Lantus Solostar Pen 100 units/mL subcutaneous solution = 18 units, Subcutaneous Injection, Daily at bedtime, Insulina de 24 horas., # 15 mL, 11 Refills, Maintenance, 09/13/22 12:18:00 EST, Injection, [facility]., 165, cm, 09/04/22 13:02:00EST, Height, 84.2, kg, 05/21/22 0:51:00 EDT, Dry We... Start Date: 09/13/22 Stop Date: 09/08/23 Status: Ordered Lipitor 80 mg oral tablet 1 tablet = 80 mg, By Mouth, Daily at bedtime, para colesterol / proteger el paty/ arterias tapadas en el paty, # 30 tablet, 11 Refills, Maintenance, 05/04/22 10:23:00 EDT, Tablet, [facility], Partial fill upon patient request, 16... [...] 05/04/22 10:27:00 EDT, Route to Pharmacy Electronically, [facility]... Start Date: 05/04/22 Status: Ordered nortriptyline 10 mg oral capsule See Instructions, GEORGE 1 CAPSULA POR LA BOCA CADA MIGUEL A LA HORA DE DORMIR *NUEVO MEDICAMENTO PARA DOLOR NEUROPATICO. NO GEORGE JUNTO CON TRAZODONE-PUEDE CAUSAR SEDACION*, # 30 capsule, Refills 1, Maintenance, 06/23/22 9:29:00 EST, Instructions Replace... Start Date: 06/23/22 Status: Ordered one pair Diabetic Shoes with Inserts one pair Diabetic Shoes with Inserts, See Instructions, # 1 each, Refills 0, Tot. Refills 0, Maintenance, Wear for diabetic foot care. Diagnosis: Type II DM, ICD10 E11.65. Fax to [address] [place] [address], 09/13/22 12:18:00 EST, Supply Start Date: 09/13/22 Status: Ordered raised toilet seat raised toilet [...] weight: 93kg, 11/21/21 16:40:00 EDT, sent to [facility]. Start Date: 11/21/21 Status: Ordered shower [...] severe, resulting in recurrent falls Confirmed Active Care coordination [facility] Care Management Bre Skinner, CC [phone] Confirmed 02/02/19 Active Thrombocytopenia Confirmed Active TIA (transient ischemic attack) Confirmed Active T2DM (type 2 diabetes mellitus) Confirmed Active Social History Social History Type Response Smoking Status Never (less than 100 in lifetime) entered on: 06/19/19 Sex Patient Care team information Care Team Personnel Name: Sorin Moser RN Position: [facility] RN Member Role: Primary Care Nurse Name: Brandi Wei RN Position: [facility] RN Member Role: Primary Care Nurse Name: Ya Collier RN Position: [facility] PCO RN Member Role: Primary Care Nurse Name: Valentina Leiva RN Position: [facility] SN RN Member Role: Primary Care Nurse Name: Macarena Bedolla Position: [facility] Outreach Member Role: Lifetime Consulting Physician Name: Abigail Nuno RN Position: [facility] Onco RN Member Role: Primary Care Nurse Name: Claire Trujillo MD Position: [facility] Primary Care Physician Member Role: PCP Address: Address: [address] [place] [address]- Name: Heidi Dao Position: [facility] RN Member Role: Primary Care Nurse Care Team Related Persons Name: JOEL BRIZUELA Address: [address] [address]
--- OUTSIDE RECORDS SUMMARY | 2023-12-10 00:43 | XMS_ITS | Continuity of Care Document ---
Author Organization [facility] Address [address] [place] [address]- Care Team Providers Care Pharmacy Assistant Name Role Phone Claire Trujillo MD Primary Care Physician Encounter [facility] Date(s): 04/09/23 - 05/09/[address] [address]- Allergies, Adverse Reactions, Alerts Substance Reaction Severity Status metFORMIN 1 GI symptoms Active 1GI intolreance Immunizations Given and Recorded Vaccine Date Status Refusal Reason SARS-CoV-2 mRNA (ryeroyf-ieag-mgyyp) vax 03/03/22 Given SARS-CoV-2 mRNA (ygpuecn-abzf-wpbxp) vax 08/27/21 Given SARS-CoV-2 (COVID-19) mRNA BNT-162b2 [...] 23-valent vaccine 05/22/02 Recorded tetanus-diphtheria toxoids (Td) 7/18/05 Recorded 1Early/Late Reason: Med Not Available Medications [...] 0 Refills, Maintenance, 11/27/22 11:10:00 EDT, Lotion, [facility], [facility] fill upon patient request if the prescri... Start Date: 11/27/22 Status: Ordered aspirin 81 mg oral delayed release tablet 81 mg, 1, tablet, By Mouth, Daily, blood thinner/ hace la leonard mas cullen - para proteger el paty/ arterias tapadas en el paty, # 90 tablet, Refills 3, Tot. Refills 3, Maintenance, 05/02/23 16:07:00 EDT, Route to Pharmacy Electronically, [facility]... Start Date: 05/02/23 Stop Date: 04/26/24 Status: [...] dx: fecal incontinence, T2DM ICD10: R15 duration: , 01/19/23 14:49:00 EDT, Supply Start Date: 01/19/23 [...] 05/02/23 16:08:00 EDT, Route to Pharmacy Electronically, [facility], Partial fill upon patient request if the pr... Start Date: 05/02/23 Stop Date: 07/01/23 Status: Ordered Flomax 0.4 mg oral capsule 0.8 mg, 2, capsule, By Mouth, Daily, # 180 capsule, Refills 1, Tot. Refills 1, Maintenance, 05/02/23 16:07:00 EDT, Route to Pharmacy Electronically, [facility], Partial fill upon patient [...] E10.42 duration: 99 weeks. Fax to Cheryl [facility], 05/11/21 11:23:00 EDT, Supply Start Date: 05/11/21 Status: Ordered Home blood pressure monitor Home blood pressure monitor, See Instructions, # 1 each, Refills 0, Tot. Refills 0, Maintenance, ICD 10 I95.1; E11. 43 ALEIDA: 99 [facility] 12:53:00 EST, Supply Start Date: 05/25/22 Status: Ordered HumaLOG KwikPen 100 units/mL injectable solution See Instructions, Mealtime insulin; dose according to finger stick before meals FS 100-199: 5 unitsFS: 200-249: 6 units FS 250-299: 7 units FS above 300: 8 units, # 15 mL, 11 Refills, 05/02/23 16:09:00 EDT, [facility], 165, c... Start Date: 05/02/23 Status: Ordered isosorbide mononitrate 30 mg oral tablet, extended release 30 mg, 1, tablet, By Mouth, Daily at bedtime, Para el paty. Noelle antes de acostarse., # 30 tablet, Refills 3, Tot. Refills 3, Maintenance, 05/02/23 16:07:00 EDT, Route to Pharmacy Electronically, [facility], Partial fill upon telma... Start Date: 05/02/23 Stop Date: 08/30/23 Status: Ordered Jardiance 25 mg oral tablet 1 tablet = 25 mg, By Mouth, Daily in AM, # 30 tablet, 5 Refills, Maintenance, 05/02/23 16:09:00 EDT, [facility], Partial fill upon patient request if the prescription is for a schedule II opioid drug., 165, cm, 04/16/23 8:59:00 EDT, H... Start Date: 05/02/23 Stop Date: 10/29/23 Status: Ordered Lantus Solostar Pen 100 units/mL subcutaneous solution = 23 units, Subcutaneous Injection, Daily at bedtime, Insulina de 24 horas., # 15 mL, 11 Refills, Maintenance, 05/02/23 16:08:00 EDT, Injection, [facility], increase in dose, 165, cm, 04/16/23 8:59:00 EDT, Height, 84.2, kg, 05/21/22 0... Start Date: 05/02/23 Stop Date: 04/26/24 Status: Ordered Lipitor 80 mg oral tablet 1 tablet = 80 mg, By Mouth, Daily at bedtime, para colesterol / proteger el paty/ arterias tapadas en el paty, # 90 tablet, 3 Refills, Maintenance, 05/02/23 16:08:00 EDT, Tablet, [facility], Partial fill upon patient request, [...] 05/02/23 16:08:00 EDT, Route to Pharmacy Electronically, [facility] Start Date: 05/02/23 Stop Date: 04/26/24 Status: Ordered morphine 15 mg/8 to 12 hr oral tablet, extended release 1 tablet = 15 mg, By Mouth, Every 12 hours, # 14 tablet, 0 Refills, Maintenance, 05/04/23 11:24:00 EDT, ER Tablet, [facility]/pharmacy #[id number], Partial fill upon patient request if the prescription is for a schedule II opioid drug. in addition to oxycodone ; o... Start Date: 05/04/23 Stop Date: 05/11/23 Status: Ordered one pair Diabetic Shoes with [...] 05/04/23 11:23:00 EDT, Route to Pharmacy Electronically, [facility]/pharmacy #[id number], Partial fill upon patient request... Start [...] weight: 93kg, 11/21/21 16:40:00 EDT[facility] Start Date: 11/21/21 Status: Ordered shower bars [...] Team Personnel Name: Sorin Moser RN Position: [facility] RN Member Role: Primary Care Nurse Name: Ya Wilson RN Position: [facility] RN Member Role: Primary Care Nurse Name: Brandi Wei RN Position: [facility] RN Member Role: Primary Care Nurse Name: Valentina Leiva RN Position: [facility] SN RN Member Role: Primary Care Nurse Name: Macarena Bedolla Position: [facility] Outreach Member Role: Lifetime Consulting Physician Name: Abigail Nuno RN Position: [facility] Onco RN Member Role: Primary Care Nurse Name: Claire Trujillo MD Position: [facility] Physician - Primary Care Member Role: PCP Address: Address: [address] [place] [address]- Name: Heidi Dao Position: [facility] RN Member Role: Primary Care Nurse Care Team Related Persons Name: BRIZUELA JOEL Address: [facility] [address] [place] [id number]
--- OUTSIDE RECORDS SUMMARY | 2023-12-10 00:43 | XMS_ITS | Continuity of Care Document ---
Author Organization [facility] Address [address] [place] [address]- Care Team Providers Care Aircraft Engine Installer Name Role Phone Claire Trujillo MD Primary Care Physician [phone] Encounter [facility] Date(s): 09/12/23 - 10/12/[address] [address]- Allergies, Adverse Reactions, Alerts Substance Reaction Severity Status metFORMIN 1 GI symptoms Active 1GI intolreance Immunizations Given and Recorded Vaccine Date Status Refusal Reason SARS-CoV-2 mRNA ([id number]-edmr-lzhnw) vax 03/03/22 Given SARS-CoV-2 mRNA (uvnpsii-venr-cvzsz) vax 08/27/21 Given SARS-CoV-2 (COVID-19) mRNA BNT-162b2 [...] 0 Refills, Maintenance, 11/27/22 11:10:00 EDT, [facility] upon patient request if the prescri... Start Date: 11/27/22 Status: Ordered Ankle foot orthostis Ankle foot orthostis, See Instructions, # 1 each, Refills 0, Tot. Refills 0, Maintenance, E11.40 needed for 99 weeks Fax to [facility], 09/24/23 17:56:00 EDT, Supply Start Date: 09/24/23 Status: Ordered aspirin 81 mg oral delayed release tablet 81 mg, 1, tablet, By Mouth, Daily, blood thinner/ hace la leonard mas cullen - para proteger el paty/ arterias tapadas en el paty, # 90 tablet, Refills 3, Tot. Refills 3, Maintenance, 09/09/23 9:59:00 EST, [facility] Start Date: 09/09/23 Stop Date: 09/03/24 [...] 05/02/23 16:08:00 EDT, Route to Pharmacy Electronically, [facility], Partial fill upon patient request if the pr... Start Date: 05/02/23 Stop Date: 07/01/23 Status: Ordered Flomax 0.4 mg oral capsule 0.8 mg, 2, capsule, By Mouth, Daily, # 180 capsule, Refills 1, Tot. Refills 1, Maintenance, 10/03/23 13:04:00 EDT, [facility], Partial fill upon patient request if [...] E10.42 duration: 99 weeks. Fax to Cheryl ([facility]), 05/11/21 11:23:00 EDT, Supply Start Date: 05/11/21 Status: Ordered Home blood pressure monitor Home blood pressure monitor, See Instructions, # 1 each, Refills 0, Tot. Refills 0, Maintenance, ICD 10 I95.1; E11. 43 ALEIDA: [facility] 12:53:00 EST, Supply Start [...] 09/09/23 9:57:00 EST, Route to Pharmacy Electronically, [facility], Partial fill upon patien... Start Date: 09/09/23 Stop Date: 09/03/24 Status: Ordered Jardiance 25 mg oral tablet 1 tablet = 25 mg, By Mouth, Daily in AM, # 90 tablet, 3 Refills, Maintenance, 09/09/23 9:59:00 EST,[facility], Partial fill upon patient request if [...] 09/27/24 13:03:00 EDT, 10/03/23 13:03:00 EDT, Injection, [facility], increase in dose, 166, cm, 09/24/23 15:24:00... Start Date: 10/03/23 Stop Date: 09/27/24 Status: Ordered Lantus Solostar Pen 100 units/mL subcutaneous solution = 23 units, Subcutaneous Injection, Daily at bedtime, Insulina de 24 horas., # 15 mL, 1 Refills, Maintenance, 04/26/24 16:08:00 EDT, Injection, [facility], No insurance (Medicare not active until 06/15). Please dispense via 340B., 165,... Start Date: 04/26/24 Status: Ordered Lipitor 80 mg oral tablet 1 tablet = 80 mg, By Mouth, Daily at bedtime, para colesterol / proteger el paty/ arterias tapadas en el paty, # 90 tablet, 3 Refills, Maintenance, 09/09/23 9:59:00 EST, Tablet, [facility], Partial fill upon patient request, 166,... Start [...] 09/09/23 9:57:00 EST, Route to Pharmacy Electronically, [facility] Start Date: 09/09/23 Stop Date: 09/03/24 Status: Ordered morphine 15 mg/8 to 12 hr oral tablet, extended release 1 tablet = 15 mg, By Mouth, Every 12 hours, # 56 tablet, 0 Refills, Maintenance, 09/28/23 10:34:00 EDT, ER Tablet, [facility]/pharmacy #[id number], Partial fill upon patient request if the prescription is for a schedule II opioid drug. in addition to oxycodone ; e... Start Date: 09/28/23 Stop Date: 10/26/23 Status: Ordered nortriptyline 10 mg oral capsule [...] days, # 112 tablet, 0 Refills, Acute 10/26/23 10:34:00 EDT, 09/28/23 10:34:00 EDT, [facility]/pharmacy #[id number], Partial fill upon patient request ifthe prescription is for a schedule II opioid drug.... Start Date: 09/28/23 Stop Date: 10/26/23 Status: Ordered powerwheel chair powerwheel chair, See Instructions, # 1 each, Refills 0, Tot. 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 99 weeks fax to [facility], 09/24/23 17:56:00 EDT, Supply Start Date: 09/24/23 [...] weight: 93kg, 11/21/21 16:40:00 EDT, sent to [facility] Start Date: 11/21/21 Status: Ordered shower bars [...] Care Nurse Name: Ya Wilson RN Position: [facility] RN Member Role: Primary Care Nurse Name: Brandi Wei RN Position: [facility] RN Member Role: Primary Care Nurse Name: Valentina Leiva RN Position: [facility] SN RN Member Role: Primary Care Nurse Name: Macarena Bedolla Position: [facility] Outreach Member Role: Lifetime Consulting Physician Name: Abigail Nuno RN Position: [facility] Onco RN Member Role: Primary Care Nurse Name: Claire Trujillo MD Position: [facility] Physician - Primary Care Member Role: PCP Address: Address: [address] [place] [address]- Name: Heidi Dao Position: [facility] RN Member Role: Primary Care Nurse Care Team Related Persons Name: JOEL BRIZUELA Address: home [address] [place] [id number]
--- OUTSIDE RECORDS SUMMARY | 2023-12-10 00:43 | XMS_ITS | Continuity of Care Document ---
Author Organization [facility] Address [address] [place] [address]- Care Team Providers Care Peg Driver Name Role Phone Claire Trujillo MD Primary Care Physician En[place] [facility] [place] Date(s): 01/21/20 - 02/27/[address] [address]- [facility] Attending Physician: Not on Staff, Attending MD Allergies, Adverse Reactions, Alerts Substance Reaction [...] 11, TAKE ONE TABLET BY MOUTH DAILY, [facility] Start Date: 04/16/19 Status: Ordered calcium [...] PLUS 1 MORE TIME NEEDED FOR SYMPTOMS, [facility] Start Date: 04/21/19 Status: Ordered FREESTYLE LANCETS 100CT See Instructions, # 100 each, Refills 11 Tot. Refills 11, USE DIRECTED FOR TYPE 1 DIABETES, KEVIN,[facility] Start Date: 03/18/19 Status: Ordered Freestyle [...] 07/28/19 15:59:00 EST, Route to Pharmacy Electronically, [facility], 165, cm, 07/21/19 14:31:00 EST, Height, 91, kg, 06/19/19 16:55:00 EST, Dry We... Start Date: 07/28/19 Stop Date: 07/22/20 Status: Ordered isosorbide mononitrate 30 mg oral tablet, extended release 1 tablet = 30 mg, By Mouth, Daily in AM, # 30 tablet, 11 Refills, Maintenance, 02/23/20 12:51:00 EDT, [facility], 165, cm, 01/12/20 16:41:00 EDT, Height, [...] 11/05/19 18:37:00 EDT, Route to Pharmacy Electronically, [facility], 165, cm, 07/21/19 14:31:00 EST, Height, [...] 02/03/20 10:00:00 EDT, Route to Pharmacy Electronically, [facility], 165, cm, 01/12/20 16:41:00 EDT, Height, [...] coordination N-BHCP C are Management Bre Skinner, JOSE R [phone](Confirmed) 02/02/19 Active Thrombocytopenia(Confirmed) Active Type 1 diabetes mellitus(Confirmed) Active Social History Social History Type Response Smoking Status Never (less than 100 in lifetime) entered on: 06/19/19 Sex
--- OUTSIDE RECORDS SUMMARY | 2023-12-10 00:43 | XMS_ITS | Continuity of Care Document ---
Author Organization [facility] Address [address] [place] [address]- Care Team Providers Care Sales Operations Manager Name Role Phone Claire Trujillo MD Primary Care Physician [phone] [place] [facility] [place] - 10/01/[address] [address] Allergies, Adverse Reactions, Alerts Substance [...] 5 Refills, Maintenance, 08/18/20 16:04:00 EST, Tablet, [facility], 1 tablet By Mouth 2 times a day, 163, cm, 04/21/20 22:04:00 EDT, Height, 91, kg,04/19/20 23:16:00 EDT, Dry Weight Start Date: 08/18/20 Status: Ordered FLUoxetine 20 mg oral capsule 1, capsule, By Mouth, Daily, # 90 capsule, Refills 3, Tot. Refills 3, Maintenance, 11/05/19 18:38:00 EDT, Route to Pharmacy Electronically, [facility], 165, cm, 07/21/19 14:31:00 EST, Height, 91,kg, 06/19/19 16:55:00 EST, Dry Weight Start Date: 11/05/19 Stop Date: 10/30/20 Status: Ordered FREESTYLE SHELLIE LITE See Instructions, # 100 each, Refills 10 Tot. Refills 10, USE TO CHECK BLOOD SUGARS 3 TIMES A DAY WITH MEALS PLUS 1 MORE TIME NEEDED FOR SYMPTOMS, [facility] Start Date: 04/21/19 Status: Ordered FREESTYLE LANCETS 100CT See Instructions, # 100 each, Refills 11 Tot. Refills 11, USE DIRECTED FOR TYPE 1 DIABETES, KEVIN,[facility] Start Date: 03/18/19 Status: Ordered Freestyle [...] Maintenance, 08/18/2115:13:00 EST, Route to Pharmacy Electronically, [facility], 163, cm, 04/21/20 22:04:00 EDT, Height, 91, kg, 04/19/20 23:16:00 EDT, Dry Weight Start Date: 08/18/20 Status: Ordered HumaLOG KwikPen 100 units/mL injectable solution See Instructions, INJECT UNDER THE SKIN DIRECTED. FOUR UNITS IF BS OVER 120 ,6 UNITS IF BS AT 200 ,8 UNITS IF BS AT 300, 12 UNITS IF BS 400 THREE TIMES DAILY BEFORE MEALS. MAXIMUM 60 UNITS / DAY, # 15 mL, 0 Refills, Maintenance, [facility], 163... Start Date: 09/24/20 Status: Ordered isosorbide mononitrate 30 mg oral [...] 2 Refills, Maintenance, 05/07/20 13:08:00 EDT, Injection, [facility], 163, cm, 04/21/20 22:04:00 EDT, Height, [...] 11/05/19 18:37:00 EDT, Route to Pharmacy Electronically, [facility], 165, cm, 07/21/19 14:31:00 EST, Height, [...] weight: 91kg, 08/26/20 16:56:00 EST[facility] Start Date: 08/26/20 Status: Ordered shower bars [...] 08/04/20 14:13:00 EST, Route to Pharmacy Electronically, [facility], 163, cm, 04/21/20 22:04:00 EDT, Height, [...] BHN-BHCP C are Management Bre Skinner, CC [phone](Confirmed) 02/02/19 Active Thrombocytopenia(Confirmed) Active Type 1 diabetes mellitus(Confirmed) Active Social History Social History Type Response Smoking Status Never (less than 100 in lifetime) entered on: 06/19/19 Sex
--- OUTSIDE RECORDS SUMMARY | 2023-12-10 00:43 | XMS_ITS | Continuity of Care Document ---
Author Organization [facility] Address [address] [place] [address]- Care Team Providers Care Tariff Expert Name Role Phone Claire Trujillo MD Primary Care Physician [phone] Encounter [facility] [place] Date(s): 01/17/23 - 02/16/[address] [address]- Allergies, Adverse Reactions, Alerts Substance Reaction Severity Status metFORMIN 1 GI symptoms Active 1GI intolreance Immunizations Given and Recorded Vaccine Date Status Refusal Reason SARS-CoV-2 mRNA (xetwnbt-tpff-ofsfn) vax 03/03/22 Given SARS-CoV-2 mRNA (pkxouxf-tgml-qkihc) vax 08/27/21 Given SARS-CoV-2 (COVID-19) mRNA BNT-162b2 [...] 0 Refills, Maintenance, 11/27/22 11:10:00 EDT, Lotion, [facility], Partial fill upon patient request if [...] EDT, Supply Start Date: 01/19/23 Status: Ordered capsaicin 0.025% topical cream 1 application, Topically, 3 times a day, PRN Pain , Moderate, Apply to legs for diabetic neuropathy. Setswana sig, # 60 Gm, 1 Refills, Maintenance, 06/06/22 9:44:00 EST, Cream, [facility], Partial fill upon patient request if the [...] 01/04/23 15:22:00 EDT, Route to Pharmacy Electronically, [facility], Partial fill upon patient request if the pre... Start Date: 01/04/23 Stop Date: 03/05/23 Status: Ordered Flomax 0.4 mg oral capsule 0.8 mg, 2, capsule, By Mouth, Daily, # 180 capsule, Refills 0, Tot. Refills 0, Maintenance, 10/16/22 13:34:00 EDT, [facility] Pharmacy Electronically, [facility], Partial fill upon patient request if [...] before eating. Utilize para chequear la azucar noha vez al d miguel antes de comer (en ayunas)., 11/23/22 14:10:00 EDT, Supply, 165,... Start Date: 11/23/22 Status: Ordered Freestyle Lite Test Strips See Instructions, # 100 each, Refills 11, Tot. Refills 11, Maintenance, Use to check sugar once perday in the morning before eating. Utilize para chequear la azucar noah vez al d miguel antes de comer (en ayunas)., 11/23/22 14:10:00 EDT, Supply, 165,... Start Date: 5/11/23 Status: Ordered Hand Held Shower Head Hand Held Shower Head, See Instructions, # 1 each, Refills 0, Tot. Refills 0, Maintenance, diagnosis: diabetic neuropathy, T1DM. ICD10: E10.42 duration: 99 weeks. Fax to Cheryl [facility]), 05/11/21 11:23:00 EDT, Supply Start Date: 05/11/21 Status: Ordered Home blood pressure monitor Home blood pressure monitor, See Instructions, # 1 each, Refills 0, Tot. Refills 0, Maintenance, ICD 10 I95.1; E11. 43 ALEIDA: 99 [facility] 05/[facility] 12:53:00 EST, Supply Start Date: 05/25/22 Status: Ordered HumaLOG KwikPen 100 units/mL injectable solution See Instructions, Mealtime insulin; dose according to finger stick before meals FS 100-199: 5 unitsFS: 200-249: 6 units FS 250-299: 7 units FS above 300: 8 units, # 15 mL, 11 Refills, 06/01/22 10:46:00 EST, [facility]., 165, cm... Start Date: 06/01/22 Status: Ordered Jardiance 25 mg oral tablet 1 tablet = 25 mg, By Mouth, Daily in AM, # 30 tablet, 5 Refills, Maintenance, 11/08/22 15:44:00 EDT, [facility], Partial fill upon patient request if the prescription is for a schedule II opioid drug., 165, cm, 09/04/22 13:02:00 EST, H... Start Date: 11/08/22 Stop Date: 05/07/23 Status: Ordered Lantus Solostar Pen 100 units/mL subcutaneous solution = 23 units, Subcutaneous Injection, Daily at bedtime, Insulina de 24 horas., # 15 mL, 11 Refills, Maintenance, 01/02/23 13:26:00 EDT, Injection, [facility], increase in dose, 165, cm,01/02/23 13:02:00 EDT, Height, 84.2, kg, 05/21/22 0... Start Date: 01/02/23 Stop Date: 12/28/23 Status: Ordered Lipitor 80 mg oral tablet 1 tablet = 80 mg, By Mouth, Daily at bedtime, para colesterol / proteger el paty/ arterias tapadas en el paty, # 30 tablet, 11 Refills, Maintenance, 05/04/22 10:23:00 EDT, Tablet[facility] fill upon patient request, 16... Start [...] 05/04/22 10:27:00 EDT, Route to Pharmacy Electronically, [facility]... Start Date: 05/04/22 Status: Ordered MiraLax oral powder for reconstitution = 17 Gm, By Mouth, Daily, PRN Constipation, for 30 days, dissolve in water before taking, # 527 Gm,1 Refills, Acute 03/05/23 15:21:00 EDT, 01/04/23 15:21:00 EDT, REC Powder, [facility]., Partial fill upon patient request if the prescri... Start Date: 01/04/23 Stop Date: 03/05/23 Status: Ordered nortriptyline 10 mg oral capsule [...] tablet, Refills 0, Tot. Refills 0, Acute 03/12/23 15:59:00 EDT, for pain, 02/12/23 15:59:00 EDT, [facility], [facility], Partial fill upon patient... Start Date: 02/12/23 Stop Date: 03/12/23 Status: Ordered pullups - adult size medium [...] weight: 93kg, 11/21/21 16:40:00 EDT, sent to [facility]. Start Date: 11/21/21 Status: Ordered [...] Team Personnel Name: Sorin Moser RN Position: [facility] RN Member Role: Primary Care Nurse Name: Brandi Wei RN Position: [facility] RN Member Role: Primary Care Nurse Name: Ya Collier RN Position: [facility] AMB Office Staff Member Role: Primary Care Nurse Name: Valentina Leiva RN Position: [facility] SN RN Member Role: Primary Care Nurse Name: Macarena Bedolla Position: [facility] Outreach Member Role: Lifetime Consulting Physician Name: Abigail Nuno RN Position: [facility] Onco RN Member Role: Primary Care Nurse Name: Claire Trujillo MD Position: [facility] Physician - Primary Care Member Role: PCP Address: Address: [address] [place] [id number]- Name: Heidi Dao Position: [facility] RN Member Role: Primary Care Nurse Care Team Related Persons Name: JOEL BRIZUELA Address: home [address] [place] [address]
--- OUTSIDE RECORDS SUMMARY | 2023-12-10 00:44 | XMS_ITS | Continuity of Care Document ---
Author Organization [facility] Address [address] [place] [address]- Care Team Providers Care Manager Web Application Name Role Phone Claire Trujillo MD Primary Care Physician [phone] Encounter [facility] [place] Date(s): 11/26/20 - 12/26/[address] [address] Allergies, Adverse Reactions, Alerts [...] 1 Refills, Soft Stop, 06/30/20 18:54:00 EST, [facility], 163, cm, 04/21/20 22:04:00 EDT, Height, 91, kg, 04/19/20 23:16:00 EDT, Dry Weight Start Date: 06/30/20 Status: Ordered bed liners bed liners, See [...] 5 Refills, Maintenance, 08/18/20 16:04:00 EST, Tablet, [facility], 1 tablet By Mouth 2 times [...] 11/05/19 18:38:00 EDT, Route to Pharmacy Electronically, [facility], 165, cm, 07/21/19 14:31:00 EST, Height, 91,kg, 06/19/19 16:55:00 EST, Dry Weight Start Date: 11/05/19 Stop Date: 10/30/20 Status: Ordered FREESTYLE SHELLIE LITE See Instructions, # 100 each, Refills 10 Tot. Refills 10, USE TO CHECK BLOOD SUGARS 3 TIMES A DAY WITH MEALS PLUS 1 MORE TIME NEEDED FOR SYMPTOMS, [facility] Start Date: 04/21/19 Status: Ordered FREESTYLE LANCETS 100CT See Instructions, # 100 each, Refills 11 Tot. Refills 11, USE DIRECTED FOR TYPE 1 DIABETES, KEVIN,[facility] Start Date: 03/18/19 Status: Ordered Freestyle [...] Maintenance, 08/18/2115:13:00 EST, Route to Pharmacy Electronically, [facility], 163, cm, 04/21/20 22:04:00 EDT, Height, 91, kg, 04/19/20 23:16:00 EDT, Dry Weight Start Date: 08/18/20 Status: Ordered Hand Held Shower Head Hand Held Shower Head, See Instructions, # 1 each, Refills 0, Tot. Refills 0, Maintenance, diagnosis: diabetic neuropathy, T1DM. ICD10: E10.42 duration: 99 weeks. Fax to Cheryl ([facility]), 10/28/20 14:53:00 EDT, Supply Start Date: 10/28/20 Status: Ordered HumaLOG KwikPen 100 units/mL injectable solution See Instructions, INJECT UNDER THE SKIN DIRECTED. FOUR UNITS IF BS OVER 120 ,6 UNITS IF BS AT 200 ,8 UNITS IF BS AT 300, 12 UNITS IF BS 400 THREE TIMES DAILY BEFORE MEALS. MAXIMUM 60 UNITS / DAY, # 15 mL, 11 Refills, Maintenance, [facility], 16... Start Date: 10/25/20 Status: Ordered [...] weight: 91kg, 08/26/20 16:56:00 EST, [facility] Start Date: 08/26/20 Status: Ordered shower bars [...] 08/04/20 14:13:00 EST, Route to Pharmacy Electronically, [facility], 163, cm, 04/21/20 22:04:00 EDT, Height, [...] BHN-BHCP C are Management Bre Skinner, CC [phone](Confirmed) 02/02/19 Active Thrombocytopenia(Confirmed) Active Type 1 diabetes mellitus(Confirmed) Active Social History Social History Type Response Smoking Status Never (less than 100 in lifetime) entered on: 06/19/19 Sex
--- OUTSIDE RECORDS SUMMARY | 2023-12-10 00:44 | XMS_ITS | Continuity of Care Document ---
Author Organization [facility] Address [address] [place] [address]- Care Team Providers Care Men'S Swim Coach Name Role Phone Claire Trujillo MD Primary Care Physician [phone] [place] [facility] [place] - 10/11/[address] [address]- Allergies, Adverse Reactions, Alerts Substance Reaction Severity Status metFORMIN 1 GI symptoms Active 1GI intolreance Immunizations Given and Recorded Vaccine Date Status Refusal Reason SARS-CoV-2 mRNA (zfwqeet-crjh-tmzmv) vax 03/03/22 Given SARS-CoV-2 mRNA (smgbajx-pbqw-drhac) vax 08/27/21 Given SARS-CoV-2 (COVID-19) mRNA BNT-162b2 [...] 05/04/22 10:23:00 EDT, Route to Pharmacy Electronically, [facility]... Start Date: 05/04/22 Status: Ordered bed [...] Moderate, Apply to legs for diabetic neuropathy. Ecuadorean sig, # 60 Gm, 1 Refills, Maintenance, 06/06/22 9:44:00 EST, Cream, [facility], Partial fill upon patient request if [...] 09/04/22 13:08:00 EST, Route to Pharmacy Electronically, [facility], Partial fill upon patient request if [...] E10.42 duration: 99 weeks. Fax to [facility], 05/11/21 11:23:00 EDT, Supply Start Date: 05/11/21 Status: Ordered Home blood pressure monitor Home blood pressure monitor, See Instructions, # 1 each, Refills 0, Tot. Refills 0, Maintenance, ICD 10 I95.1; E11. 43 ALEIDA: [facility] 12:53:00 EST, Supply Start Date: 05/25/22 Status: Ordered HumaLOG KwikPen 100 units/mL injectable solution See Instructions, Mealtime insulin; dose according to finger stick before meals FS 100-199: 5 unitsFS: 200-249: 6 units FS 250-299: 7 units FS above 300: 8 units, # 15 mL, 11 Refills, 06/01/22 10:46:00 EST, [facility]., 165, cm... Start Date: 06/01/22 Status: Ordered Jardiance 25 mg oral tablet 1 tablet = 25 mg, By Mouth, Daily in AM, # 30 tablet, 5 Refills, Maintenance, 06/01/22 10:45:00 EST, [facility], Partial fill upon patient request if the prescription is for a schedule II opioid drug., 165, cm, 06/01/22 10:18:00 EST, H... Start Date: 06/01/22 Stop Date: 11/28/22 Status: Ordered Lantus Solostar Pen 100 units/mL subcutaneous solution = 18 units, Subcutaneous Injection, Daily at bedtime, Insulina de 24 horas., # 15 mL, 11 Refills, Maintenance, 09/13/22 12:18:00 EST, [facility] 165, cm, 09/04/22 13:02:00EST, Height, 84.2, kg, 05/21/22 0:51:00 EDT, Dry We... Start Date: 09/13/22 Stop Date: 09/08/23 Status: Ordered Lipitor 80 mg oral tablet 1 tablet = 80 mg, By Mouth, Daily at bedtime, para colesterol / proteger el paty/ arterias tapadas en el paty, # 30 tablet, 11 Refills, Maintenance, 05/04/22 10:23:00 EDT, Tablet, [facility], Partial fill upon patient request, 16... Start [...] 05/04/22 10:27:00 EDT, Route to Pharmacy Electronically, [facility]... Start Date: 05/04/22 Status: Ordered [...] Type II DM, ICD10 E11.65. Fax to [address] [place] [address]., 09/13/22 12:18:00 EST, Supply Start Date: 09/13/22 [...] weight: 93kg, 11/21/21 16:40:00 EDT, sent to [facility]. Start Date: 11/21/21 Status: Ordered shower bars [...] in recurrent falls Confirmed Active Care coordination N-CP Care Management Bre Skinner, CC [phone] Confirmed 02/02/19 Active Thrombocytopenia Confirmed Active TIA (transient ischemic attack) Confirmed Active T2DM (type 2 diabetes mellitus) Confirmed Active Social History Social History Type Response Smoking Status Never (less than 100 in lifetime) entered on: 06/19/19 Sex Patient Care team information Care Team Personnel Name: Sorin Moser RN Position: [facility] RN Member Role: Primary Care Nurse Name: Brandi Wei RN Position: [facility] RN Member Role: Primary Care Nurse Name: Ya Collier RN Position: [facility] PCO RN Member Role: Primary Care Nurse Name: Valentina Leiva RN Position: [facility] SN RN Member Role: Primary Care Nurse Name: Macarena Bedolla Position: [facility] Outreach Member Role: Lifetime Consulting Physician Name: Abigail Nuno RN Position: [facility] Onco RN Member Role: Primary Care Nurse Name: Claire Trujillo MD Position: [facility] Primary Care Physician Member Role: PCP Address: Address: [address] [place] [id number]- Name: Heidi Dao Position: [facility] RN Member Role: Primary Care Nurse Care Team Related Persons Name: JOEL BRIZUELA Address: home [address] [place] [id number]
--- OUTSIDE RECORDS SUMMARY | 2023-12-10 00:44 | XMS_ITS | Continuity of Care Document ---
Author Organization [facility] Address [address] [place] [address]- Care Team Providers Care Dye House Hand Name Role Phone Claire Trujillo MD Primary Care Physician [place] [facility] [place] 10/04/[address] [address]- Allergies, Adverse Reactions, Alerts Substance Reaction Severity Status metFORMIN 1 GI symptoms Active 1GI intolreance Immunizations Given and Recorded Vaccine Date Status Refusal Reason SARS-CoV-2 mRNA (xkwqjhe-cfhs-viclh) vax 03/03/22 Given SARS-CoV-2 mRNA (qmbmhss-dtru-xzbpw) vax 08/27/21 Given SARS-CoV-2 (COVID-19) mRNA BNT-162b2 [...] 0 Refills, Maintenance, 11/27/22 11:10:00 EDT, [facility], Partial fill upon patient request if the prescri... Start Date: 11/27/22 Status: Ordered Ankle foot orthostis Ankle foot orthostis, See Instructions, # 1 each, Refills 0, Tot. Refills 0, Maintenance, E11.40 needed for 99 weeks Fax to [facility], 09/24/23 17:56:00 EDT, Supply Start Date: 09/24/23 Status: Ordered aspirin 81 mg oral delayed release tablet 81 mg, 1, tablet, By Mouth, Daily, blood thinner/ hace la leonard mas cullen - para proteger el paty/ arterias tapadas en el paty, # 90 tablet, Refills 3, Tot. Refills 3, Maintenance, 09/09/23 9:59:00 EST, Route to Pharmacy Electronically, [facility] Start Date: 09/09/23 Stop Date: 09/03/24 Status: Ordered bed liners bed liners, See Instructions, # 60 each, Refills 11, Tot. Refills 11, Maintenance, dx: incontinence, T1DM icd10: N31.9 duration: 99 weeks, 10/03/23 15:55:00 EDT, Supply Start Date: 10/03/23 Status: Ordered blood pressure cuff blood pressure [...] 05/02/23 16:08:00 EDT, Route to Pharmacy Electronically, [facility], Partial fill upon patient request if the pr... Start Date: 05/02/23 Stop Date: 07/01/23 Status: Ordered Flomax 0.4 mg oral capsule 0.8 mg, 2, capsule, By Mouth, Daily, # 180 capsule, Refills 1, Tot. Refills 1, Maintenance, 10/03/23 13:04:00 EDT, [facility], Partial fill upon patient request [...] E10.42 duration: 99 weeks. Fax to Cheryl ([facility]), 05/11/21 11:23:00 EDT, Supply Start Date: 05/11/21 Status: Ordered Home blood pressure monitor Home blood pressure monitor, See Instructions, # 1 each, Refills 0, Tot. Refills 0, Maintenance, ICD 10 I95.1; E11. 43 ALEIDA: 99 [facility] 12:53:00 EST, Supply Start [...] 09/09/23 9:57:00 EST, Route to Pharmacy Electronically, [facility], Partial fill upon patien... Start Date: 09/09/23 Stop Date: 09/03/24 Status: Ordered Jardiance 25 mg oral tablet 1 tablet = 25 mg, By Mouth, Daily in AM, # 90 tablet, 3 Refills, Maintenance, 09/09/23 9:59:00 EST,[facility], Partial fill upon patient request [...] 09/27/24 13:03:00 EDT, 10/03/23 13:03:00 EDT, Injection, [facility], increase in dose, 166, cm, 09/24/23 15:24:00... Start Date: 10/03/23 Stop Date: 09/27/24 Status: Ordered Lantus Solostar Pen 100 units/mL subcutaneous solution = 23 units, Subcutaneous Injection, Daily at bedtime, Insulina de 24 horas., # 15 mL, 1 Refills, Maintenance, 04/26/24 16:08:00 EDT, Injection, [facility], No insurance (Medicare not active until 06/15). Please dispense via 340B., 165,... Start Date: 04/26/24 Status: Ordered Lipitor 80 mg oral tablet 1 tablet = 80 mg, By Mouth, Daily at bedtime, para colesterol / proteger el paty/ arterias tapadas en el paty, # 90 tablet, 3 Refills, Maintenance, 09/09/23 9:59:00 EST, Tablet, [facility], Partial fill upon patient request, 166,... [...] 09/09/23 9:57:00 EST, [facility] Start Date: 09/09/23 Stop Date: 09/03/24 Status: Ordered morphine 15 mg/8 to 12 hr oral tablet, extended release 1 tablet = 15 mg, By Mouth, Every 12 hours, # 56 tablet, 0 Refills, Maintenance, 09/28/23 10:34:00 EDT, ER Tablet, [facility]/pharmacy #[id number], Partial fill upon patient request if [...] Acute 10/26/23 10:34:00 EDT, 09/28/23 10:34:00 EDT, [facility]/pharmacy #[id number], Partial fill upon patient request ifthe prescription is for a schedule II opioid drug.... Start Date: 09/28/23 Stop Date: 10/26/23 Status: Ordered powerwheel chair powerwheel chair, See Instructions, # 1 each, Refills 0, Tot. 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 99 weeks fax to [facility], 09/24/23 17:56:00 EDT, Supply Start Date: 09/24/23 Status: Ordered pullups - adult size medium pullups - adult size medium, See Instructions, # 240 each, Refills 11, Tot. Refills 11, Maintenance, dx: incontinence, T1DM icd10: N31.9 duration: 99 weeks note size change, 10/03/23 15:55:00 EDT, Supply Start Date: 10/03/23 Status: Ordered raised toilet seat raised toilet [...] weight: 93kg, 11/21/21 16:40:00 EDT, sent to [facility] Start Date: 11/21/21 Status: Ordered shower bars [...] Care Nurse Name: Brandi Wei RN [facility] RN Member Role: Primary Care Nurse Name: Valentina Leiva RN Position: [facility] SN RN Member Role: Primary Care Nurse Name: Macarena Bedolla Position: [facility] Outreach Member Role: Lifetime Consulting Physician Name: Abigail Nuno RN Position: [facility] Onco RN Member Role: Primary Care Nurse Name: Claire Trujillo MD Position: [facility] Physician - Primary Care Member Role: PCP Address: Address: [address] [place] [address]- Name: Heidi Dao Position: [facility] RN Member Role: Primary Care Nurse Care Team Related Persons Name: JOEL BRIZUELA Address: home [address] [place] [id number]
--- OUTSIDE RECORDS SUMMARY | 2023-12-10 00:44 | XMS_ITS | Continuity of Care Document ---
Author Organization [facility] Address [address] [place] [address]- Care Team Providers Care Chargeback Analyst Name Role Phone Claire Trujillo MD Primary Care Physician [phone] [place] [facility] [place] 05/24/21 - 06/23/[address] [address]- Allergies, Adverse Reactions, Alerts Substance Reaction Severity Status metFORMIN 1 GI symptoms Active 1GI intolreance Immunizations Given and Recorded Vaccine Date Status Refusal Reason SARS-CoV-2 (COVID-19) mRNA BNT-162b2 vac 11/09/20 Recorded [...] incontinence, T1DM icd10: N31.9 duration: 99 weeks, 05/11/21 11:23:00 EDT, Supply Start Date: 05/11/21 Status: Ordered blood pressure cuff blood pressure cuff, See Instructions, PRN Pain , Mild, # 1 each, Refills 0, Tot. Refills 0, Maintenance, for medication titration dx: essential hypertension ICD10: I10 duration: 52 weeks, 06/08/20 13:21:00 EST, Supply Start Date: 06/08/20 Status: Ordered briefs - adult size large briefs - adult size large, See Instructions, # 60 each, Refills 11, Tot. Refills 11, Maintenance, dx: incontinence, T1DM icd10: N31.9 duration: 99 weeks, 05/11/21 11:22:00 EDT, Supply Start Date: 05/11/21 Status: Ordered Diabetic Shoes with Inserts Diabetic Shoes with Inserts, See Instructions, # 2 each, Refills 0, Tot. Refills 0, Maintenance, Wear for diabetic foot care. Diagnosis: Type II DM, ICD10 E11.65. [facility] 14:47:00 EDT, Supply Start Date: 10/28/20 Status: Ordered escitalopram 10 mg oral tablet 1 tablet = 10 mg, By Mouth, Daily, # 90 tablet, 0 Refills, Maintenance, 02/10/21 7:26:00 EDT, Tablet, Partial fill upon patient request if the prescription is for a schedule II opioid drug. Start Date: 02/10/21 Status: Ordered escitalopram 20 mg oral tablet 1 tablet = 20 mg, By Mouth, Daily, # 90 tablet, 0 Refills, Maintenance, 02/10/21 7:25:00 EDT, Tablet, Partial fill upon patient request if the prescription is for a schedule II opioid drug. Start Date: 02/10/21 Status: Ordered FREESTYLE SHELLIE LITE See Instructions, # 100 each, Refills 10 Tot. Refills 10, USE TO CHECK BLOOD SUGARS 3 TIMES A DAY WITH MEALS PLUS 1 MORE TIME NEEDED FOR SYMPTOMS, [facility] Start Date: 04/21/19 Status: Ordered FREESTYLE LANCETS 100CT See Instructions, # 100 each, Refills 11 Tot. Refills 11, USE DIRECTED FOR TYPE 1 DIABETES, [facility] Start Date: 03/18/19 Status: [...] Dx: T1DM ICD10: E10.43 duration: 99 weeks, 05/10/21 13:23:00 EDT, Duplicate rx; original sent 04/18/21, Supply, 164, cm, 03/02/21 8:40:00 EDT, Height, 87.5, kg, 02/10/21 9:00:00 ED... Start Date: 05/10/21 Stop Date: 06/09/21 Status: Ordered Freestyle Vladislav Sensor 14 day Freestyle Vladislav Sensor 14 day, See Instructions, # 2 each, Refills 11, Tot. Refills 11, Maintenance, apply one sensor every 14 days; check glucose qid;E11.65, 03/02/21 9:06:00 EDT, Compound, 164, cm,03/02/21 8:40:00 EDT, Height, 87.5, kg, 02/10/21 9:... Start Date: 03/02/21 Status: Ordered gabapentin 300 mg oral capsule 1, capsule, By Mouth, 2 times a day, # 60 capsule, Refills 11, Tot. Refills 0, Maintenance, 01/06/21 12:38:00 EDT, Route to Pharmacy Electronically, [facility], 163, cm, 01/03/21 10:40:00 EDT, Height, 91, kg, 04/19/20 23:16:00 EDT, Dry Weight Start Date: 01/06/21 Status: Ordered Hand Held Shower Head Hand Held Shower Head, See Instructions, # 1 each, Refills 0, Tot. Refills 0, Maintenance, diagnosis: diabetic neuropathy, T1DM. ICD10: E10.42 duration: 99 weeks. Fax to Cheryl ([facility]), 05/11/21 11:23:00 EDT, Supply Start Date: 05/11/21 Status: Ordered isosorbide mononitrate 60 mg oral tablet, extended release 60 mg, 1, tablet, By Mouth, Daily in AM, # 90 tablet, Refills 3, Tot. Refills 3, Maintenance, 01/03/21 10:57:00 EDT, Route to Pharmacy Electronically, [facility], Partial fill upon patient request if the prescription is for a schedule II opioid . Start Date: 01/03/21 Status: Ordered Jardiance 10 mg oral tablet 1 tablet, By Mouth, Daily in AM, # 30 tablet, 2 Refills, [facility], 164, cm, 03/02/21 8:40:00 EDT, Height, 87.5, kg, 02/10/21 9:00:00 EDT, Dry Weight Start Date: 06/08/21 Status: Ordered Lantus Solostar Pen 100 units/mL subcutaneous solution = 15 units, Subcutaneous Injection, Daily at bedtime, # 9 mL, 2 Refills, Maintenance, 05/07/20 13:08:00 EDT, Injection, [facility], 163, cm, 04/21/20 22:04:00 EDT, Height, 91, kg, 04/19/20 23:16:00 EDT, Dry Weight Start Date: 05/07/20 Stop Date: 08/05/20 Status: Ordered Lantus Solostar Pen 100 units/mL subcutaneous solution See Instructions, INJECT 15 UNITS SUBCUTANEOUSLY DAILY AT BEDTIME, # 15 mL, 2 Refills, [facility], 164, cm, 03/02/21 8:40:00 EDT, Height, 87.5, kg, 02/10/21 9:00:00 EDT, Dry Weight Start Date: 05/25/21 Status: Ordered Lipitor 80 mg oral tablet 1 tablet = 80 mg, By Mouth, Daily at bedtime, # 90 tablet, 3 Refills, Maintenance, 03/07/21 9:07:00EDT, Tablet, [facility]/pharmacy #[id number], Partial fill upon patient request, 164, cm, 03/02/21 8:40:00 EDT, Height, 87.5, kg, 02/10/21 9:00:00 EDT, Dry Weight Start Date: 03/07/21 Stop Date: 03/02/22 Status: Ordered lisinopril 10 mg oral tablet 1, tablet, By Mouth, Daily, # 90 tablet, Refills 1, Route to Pharmacy Electronically, [facility], 164, cm, 03/02/21 8:40:00 EDT, Height, 87.5, kg, 02/10/21 9:00:00 EDT, Dry Weight Start Date: 03/24/21 Status: Ordered LORazepam 0.5 mg oral tablet 1 tablet = 0.5 mg, By Mouth, 2 times a day, PRN as needed for anxiety, 0 Refills, Maintenance, 02/10/21 7:22:00 EDT, Tablet, Partial fill upon patient request if the prescription is for a schedule IIopioid drug. Start Date: 02/10/21 Status: Ordered mirtazapine 7.5 mg oral tablet 2 tablet = 15 mg, By Mouth, Daily at bedtime, 0 Refills, Maintenance, 02/10/21 7:26:00 EDT, Partialfill upon patient request if the prescription is for a schedule II opioid drug. Start Date: 02/10/21 Status: Ordered rollator walker w/ 4 wheels, seat and brakes rollator walker w/ 4 wheels, seat and brakes, See Instructions, # 1 each, Refills 0, Tot. Refills 0, Maintenance, dx: diabetes with neuropathy ICD10: E11.40 duration: 99 weeks height: 163 cm weight: 91kg, 08/26/20 16:56:00 EST[facility] Start Date: 08/26/20 Status: Ordered shower bars [...] 01/03/21 10:57:00 EDT, Route to Pharmacy Electronically, [facility], Partial fill upon patient request ifthe prescription is for a schedule II opioid drug.,... Start Date: 01/03/21 Status: Ordered traZODone 50 mg oral tablet 1, tablet, By Mouth, Daily at bedtime, PRN, # 30 tablet, Refills 5, Tot. Refills 5, Maintenance, ASNEEDED FOR SLEEP, 05/20/21 15:25:00 EDT, Route to Pharmacy Electronically, [facility]/pharmacy #[id number], 164,cm, 03/02/21 8:40:00 EDT, Height, 87.5, kg, ... Start Date: 05/20/21 Status: Ordered walker with wheels and brakes [...] BHN-BHCP C are Management Bre Skinner, CC [phone](Confirmed) 02/02/19 Active Thrombocytopenia(Confirmed) Active T2DM (type 2 diabetes mellitus)(Confirmed) Active Social History Social History Type Response Smoking Status Never (less than 100 in lifetime) entered on: 06/19/19 Sex
--- OUTSIDE RECORDS SUMMARY | 2023-12-10 00:44 | XMS_ITS | Continuity of Care Document ---
Author Organization [facility] Address [address] [place] [address]- Care Team Providers Care Sales Recruiting Coordinator Name Role Phone Claire Trujillo MD Primary Care Physician [place] [facility] [place] [facility]/20[place]23 - 04/19/[address] [address]- Allergies, Adverse Reactions, Alerts Substance Reaction Severity Status metFORMIN 1 GI symptoms Active 1GI intolreance Immunizations Given and Recorded Vaccine Date Status Refusal Reason SARS-CoV-2 mRNA (oiyntos-jlsq-niops) vax 03/03/22 Given SARS-CoV-2 mRNA (luryxvf-eovf-nqrjy) vax 08/27/21 Given SARS-CoV-2 (COVID-19) mRNA BNT-162b2 [...] 0 Refills, Maintenance, 11/27/22 11:10:00 EDT, [facility] upon patient request if the prescri... Start Date: 11/27/22 Status: Ordered aspirin 81 mg oral delayed release tablet 81 mg, 1, tablet, By Mouth, Daily, blood thinner/ hace la leonard mas cullen - para proteger el paty/ arterias tapadas en el paty, # 90 tablet, Refills 3, Tot. Refills 3, Maintenance, 03/31/23 11:15:00 EDT, Route to Pharmacy Electronically, Comic Reply... Start Date: 03/31/23 Stop Date: 03/25/24 Status: Ordered bed liners bed liners, See [...] Moderate, Apply to legs for diabetic neuropathy. Palauan sig, # 60 Gm, 1 Refills, Maintenance, 06/06/22 9:44:00 EST, Cream, [facility], Partial fill upon patient request if [...] 01/04/23 15:22:00 EDT, Route to Pharmacy Electronically, [facility], Partial fill upon patient request if the pre... Start Date: 01/04/23 Stop Date: 03/05/23 Status: Ordered Flomax 0.4 mg oral capsule 0.8 mg, 2, capsule, By Mouth, Daily, # 180 capsule, Refills 1, Tot. Refills 1, Maintenance, 03/31/23 11:17:00 EDT, Route to Pharmacy Electronically, [facility], Partial fill upon patient request if the prescription is for a schedule II... Start Date: 03/31/23 Stop Date: 09/27/23 Status: Ordered FreeStyle Vladislav 2 Monitor See [...] E10.42 duration: 99 weeks. Fax to Cheryl ([facility]), 05/11/21 11:23:00 EDT, Supply Start Date: 05/11/21 Status: Ordered Home blood pressure monitor Home blood pressure monitor, See Instructions, # 1 each, Refills 0, Tot. Refills 0, Maintenance, ICD 10 I95.1; E11. 43 ALEIDA: [facility] 12:53:00 EST, Supply Start Date: 05/25/22 Status: Ordered HumaLOG KwikPen 100 units/mL injectable solution See Instructions, Mealtime insulin; dose according to finger stick before meals FS 100-199: 5 unitsFS: 200-249: 6 units FS 250-299: 7 units FS above 300: 8 units, # 15 mL, 11 Refills, 06/01/22 10:46:00 EST, [facility] 165, cm... Start Date: 06/01/22 Status: Ordered isosorbide mononitrate 30 mg oral tablet, extended release 30 mg, 1, tablet, By Mouth, Daily at bedtime, Para el paty. Noelle antes de acostarse., # 30 tablet, Refills 3, Tot. Refills 3, Maintenance, 03/31/23 11:17:00 EDT, Route to Pharmacy Electronically, [facility], Partial fill upon patie... Start Date: 03/31/23 Stop Date: 07/29/23 Status: Ordered Jardiance 25 mg oral tablet 1 tablet = 25 mg, By Mouth, Daily in AM, # 30 tablet, 5 Refills, Maintenance, 11/08/22 15:44:00 EDT, [facility], Partial fill upon patient request if the prescription is for a schedule II opioid drug., 165, cm, 09/04/22 13:02:00 EST, H... Start Date: 11/08/22 Stop Date: 05/07/23 Status: Ordered Lantus Solostar Pen 100 units/mL subcutaneous solution = 23 units, Subcutaneous Injection, Daily at bedtime, Insulina de 24 horas., # 15 mL, 11 Refills, Maintenance, 01/02/23 13:26:00 EDT, Injection, [facility], increase in dose, 165, cm,01/02/23 13:02:00 EDT, Height, 84.2, kg, 05/21/22 0... Start Date: 01/02/23 Stop Date: 12/28/23 Status: Ordered Lipitor 80 mg oral tablet 1 tablet = 80 mg, By Mouth, Daily at bedtime, para colesterol / proteger el paty/ arterias tapadas en el paty, # 90 tablet, 3 Refills, Maintenance, 03/31/23 11:15:00 EDT, Tablet, [facility], Partial fill upon patient request, 165... Start Date: 03/31/23 Stop Date: 03/25/24 Status: Ordered medical alert system medical alert [...] tablet, Refills 3, Tot. Refills 3, Maintenance, 03/31/23 11:15:00 EDT, Route to Pharmacy Electronically, [facility]... Start Date: 03/31/23 Stop Date: 03/25/24 Status: Ordered nortriptyline 10 mg oral capsule [...] 11/23/22 Status: Ordered oxyCODONE 10 mg oral tablet, extended release 10 mg, 1, tablet, By Mouth, Every 12 hours, # 14 tablet, Refills 0, Tot. Refills 0, Maintenance, 04/16/23 9:23:00 EDT, Route to Pharmacy Electronically, [facility]., Partial fill upon patient request if the prescription is for a schedul... Start Date: 04/16/23 Stop Date: 04/23/23 Status: Ordered oxyCODONE 5 mg oral tablet 5 mg, 1, tablet, By Mouth, Every 6 hours, PRN, for 28 days, # 112 tablet, Refills 0, Tot. Refills 0, Acute 05/07/23 12:49:00 EDT, for pain, 04/09/23 12:49:00 EDT, Route to Pharmacy Electronically, [facility], Partial fill upon patient... Start Date: 04/09/23 Stop Date: 05/07/23 Status: Ordered pullups - adult size medium [...] weight: 93kg, 11/21/21 16:40:00 EDT, sent to [facility] Start Date: 11/21/21 Status: Ordered shower bars [...] RN Position: [facility] RN Member Role: Primary Care Nurse Name: Brandi Wei RN Position: [facility] RN Member Role: Primary Care Nurse Name: Ya Collier RN Position: [facility] RN Member Role: Primary Care Nurse Name: Valentina Leiva RN Position: [facility] SN RN Member Role: Primary Care Nurse Name: Macarena Bedolla Position: [facility] Outreach Member Role: Lifetime Consulting Physician Name: Abigail Nuno RN Position: [facility] Onco RN Member Role: Primary Care Nurse Name: Claire Trujillo MD Position: [facility] Physician - Primary Care Member Role: PCP Address: Address: [address] [place] [address] Name: Heidi Dao Position: [facility] RN Member Role: Primary Care Nurse Care Team Related Persons Name: JOEL BRIZUELA Address: home [address] [place] [address], [place] [address]
--- OUTSIDE RECORDS SUMMARY | 2023-12-10 00:44 | XMS_ITS | Continuity of Care Document ---
Author Organization [facility] ter Address [address] [place] [id number]- Care Team Providers Care Laundry Tech Name Role Phone Claire Trujillo MD Primary Care Physician Encounter [facility] Date(s): 06/30/22 - 07/30/[address] [address] Allergies, Adverse Reactions, Alerts Substance Reaction Severity Status metFORMIN 1 GI symptoms Active 1GI intolreance Immunizations Given and Recorded Vaccine Date Status Refusal Reason SARS-CoV-2 mRNA (avalpso-ymqs-ldofp) vax 03/03/22 Given SARS-CoV-2 mRNA (mclwfdu-eezg-ufnfy) vax 08/27/21 Given SARS-CoV-2 (COVID-19) mRNA BNT-162b2 [...] 05/04/22 10:23:00 EDT, Route to Pharmacy Electronically, [facility]... Start Date: 05/04/22 Status: Ordered bed liners [...] Moderate, Apply to legs for diabetic neuropathy. Divehi sig, # 60 Gm, 1 Refills, Maintenance, 06/06/22 9:44:00 EST, Cream, [facility], Partial fill upon patient request [...] EDT, Supply Start Date: 03/13/22 Status: Ordered FreeStyle Vladislav 2 Monitor See Instructions, # 1 each, Maintenance, apply one sensor every 14 days; check glucose qid;E11.65, 05/04/22 13:58:00 EDT, Supply, 164, cm, 05/04/22 9:09:00 EDT, Height, 87.5, kg, 02/10/21 9:00:00 EDT, Dry Weight Start Date: 05/04/22 Status: Ordered FreeStyle Vlaidslav 2 Sensors See Instructions, # 2 each, [...] E10.42 duration: 99 weeks. Fax to Cheryl ([facility]), 05/11/21 11:23:00 EDT, Supply Start Date: 05/11/21 Status: Ordered Home blood pressure monitor Home blood pressure monitor, See Instructions, # 1 each, Refills 0, Tot. Refills 0, Maintenance, ICD 10 I95.1; E11. 43 ALEIDA: 99 [facility] 12:53:00 EST, Supply Start Date: 05/25/22 Status: Ordered HumaLOG KwikPen 100 units/mL injectable solution See Instructions, Mealtime insulin; dose according to finger stick before meals FS 100-199: 5 unitsFS: 200-249: 6 units FS 250-299: 7 units FS above 300: 8 units, # 15 mL, 11 Refills, 06/01/22 10:46:00 EST, [facility]., 165, cm... Start Date: 06/01/22 Status: Ordered Jardiance 25 mg oral tablet 1 tablet = 25 mg, By Mouth, Daily in AM, # 30 tablet, 5 Refills, Maintenance, 06/01/22 10:45:00 EST, [facility], Partial fill upon patient request if the prescription is for a schedule II opioid drug., 165, cm, 06/01/22 10:18:00 EST, H... Start Date: 06/01/22 Stop Date: 11/28/22 Status: Ordered Lantus Solostar Pen 100 units/mL subcutaneous solution = 12 units, Subcutaneous Injection, Daily at bedtime, Insulina de 24 horas., # 6 mL, 11 Refills, Maintenance, 06/01/22 10:46:00 EST, Injection, [facility]., 165, cm, 06/01/22 10:18:00 EST, Height, 84.2, kg, 05/21/22 0:51:00 EDT, Dry Weight Start Date: 06/01/22 Stop Date: 05/27/23 Status: Ordered Lipitor 80 mg oral tablet 1 tablet = 80 mg, By Mouth, Daily at bedtime, para colesterol / proteger el paty/ arterias tapadas en el paty, # 30 tablet, 11 Refills, Maintenance, 05/04/22 10:23:00 EDT, [facility], 16... Start Date: 05/04/22 Stop Date: 04/29/23 Status: Ordered LORazepam 0.5 mg oral tablet 1 tablet = 0.5 mg, By Mouth, Daily, PRN as needed for anxiety, for 30 days, Hasta noah vez al miguel linda sea necesario para ansiedad severa/ ataque de panico. No kalie todos los menchaca. Pharm: dispense #15per 30d, # 15 tablet, 2 Refills, Acute 08/02/22 1... Start Date: 05/04/22 Stop Date: 08/02/22 Status: Ordered medical alert system medical alert [...] 05/04/22 10:27:00 EDT, Route to Pharmacy Electronically, [facility]... Start Date: 05/04/22 Status: Ordered [...] Type II DM, ICD10 E11.65. Fax to [address] [place] [address], 07/07/22 11:52:00 EST, Supply Start Date: 07/07/22 Status: Ordered raised toilet seat raised toilet [...] weight: 93kg, 11/21/21 16:40:00 EDT, sent to [facility]. Start Date: 11/21/21 Status: Ordered shower [...] coordination N-CP Care Management Bre Skinner, CC [phone] Confirmed 02/02/19 Active Thrombocytopenia Confirmed Active TIA (transient ischemic attack) Confirmed Active T2DM (type 2 diabetes mellitus) Confirmed Active Social History Social History Type Response Smoking Status Never (less than 100 in lifetime) entered on: 06/19/19 Sex Patient Care team information Care Team Personnel Name: Sorin Moser RN Position: [facility] RN Member Role: Primary Care Nurse Name: Brandi Wei RN Position: [facility] RN Member Role: Primary Care Nurse Name: Ya Collier RN Position: [facility] PCO RN Member Role: Primary Care Nurse Name: Valentina Leiva RN Position: [facility] SN RN Member Role: Primary Care Nurse Name: Macarena Bedolla Position: [facility] Outreach Member Role: Lifetime Consulting Physician Name: Abigail Nuno RN Position: [facility] Onco RN Member Role: Primary Care Nurse Name: Claire Trujillo MD Position: [facility] Primary Care Physician Member Role: PCP Address: Address: [address] [place] [address]- Name: Heidi Dao Position: [facility] RN Member Role: Primary Care Nurse Care Team Related Persons Name: JOEL BRIZUELA Address: home [address] [place] [id number]
--- OUTSIDE RECORDS SUMMARY | 2023-12-10 00:44 | XMS_ITS | Continuity of Care Document ---
Author Organization [facility] Address [address] [place] [address]- Care Team Providers Care Fire Hose Curer Name Role Phone Claire Trujillo MD Primary Care Physician Encounter [facility] [id number] Date(s): 03/03/22 - 04/02/[address] [address]- Attending Physician: Uche Urena Admitting Physician: AdmUche sheth Referring Physician: AdmtrUche Allergies, Adverse Reactions, Alerts Substance Reaction Severity Status metFORMIN 1 GI symptoms Active 1GI intolreance Immunizations Given and Recorded Vaccine Date Status Refusal Reason SARS-CoV-2 mRNA (ijcqzlh-yoml-uuocl) vax 03/03/22 Given SARS-CoV-2 mRNA (xihhvvm-lllv-gygzx) vax 08/27/21 Given SARS-CoV-2 (COVID-19) mRNA BNT-162b2 [...] Available Medications Alcohol Pads See Instructions, # 100 each, Refills 5, Tot. Refills 5, Maintenance, To test 3 times a day and with symptoms Dx: T2DM ICD10: E11.9 duration: 52 weeks, 10/17/21 10:33:00 EDT, Compound, 164, cm, 03/02/21 8:40:00 EDT, Height, 87.5, kg, 02/10/21 9:00:... Start Date: 10/17/21 Status: Ordered ALCOHOL PADS 70% PAD ALCOHOL [...] Daily, # 90 tablet, 3 Refills, Maintenance, 03/03/22 15:27:00 EDT, [facility], 164, cm, 03/03/22 14:46:00 EDT, Height, 87.5, kg, 02/10/21 9:00:00 EDT, Dry Weight Start Date: 03/03/22 Stop Date: 02/26/23 Status: Ordered bed liners bed liners, See [...] EDT, Supply Start Date: 03/24/22 Status: Ordered calcium (as carbonate)-vitamin D 500 mg-400 intl units oral tablet 1 tablet, By Mouth, 2 times a day, # 60 tablet, 5 Refills, 02/15/22 18:16:00 EDT, [facility] 30, 1 tablet By Mouth 2 times a day, 164, cm, 11/21/21 14:03:00 EDT, Height, 87.5, kg, 02/10/21 9:00:00 EDT, Dry Weight Start Date: 02/15/22 Status: Ordered Diabetic Shoes with Inserts Diabetic Shoes with Inserts, See Instructions, # 2 each, Refills 0, Tot. Refills 0, Maintenance, Wear for diabetic foot care. Diagnosis: Type II DM, ICD10 E11.65. Fax to [facility], 10/28/20 14:47:00 EDT, Supply Start Date: 10/28/20 Status: Ordered disinfectant wipes disinfectant wipes, See Instructions, # 100 each, Refills 11, Tot. Refills 11, Maintenance, dx: incontinence, T1DM ICD10: N31.9 duration: 99, 03/13/22 12:20:00 EDT, Supply Start Date: 03/13/22 Status: Ordered escitalopram 10 mg oral tablet [...] PLUS 1 MORE TIME NEEDED FOR SYMPTOMS, [facility] Start Date: 04/21/19 Status: Ordered FREESTYLE LANCETS 100CT See Instructions, # 100 each, Refills 11 Tot. Refills 11, USE DIRECTED FOR TYPE 1 DIABETES, KEVIN,[facility] Start Date: 03/18/19 Status: Ordered Freestyle [...] 02/10/21 9:... Start Date: 03/02/21 Status: Ordered Hand Held Shower Head Hand Held Shower Head, See Instructions, # 1 each, Refills 0, Tot. Refills 0, Maintenance, diagnosis: diabetic neuropathy, T1DM. ICD10: E10.42 duration: 99 weeks. Fax to Cher[facility]), 05/11/21 11:23:00 EDT, Supply Start Date: 05/11/21 Status: Ordered HumaLOG KwikPen 100 units/mL injectable solution See Instructions, INJECT UNDER THE SKIN DIRECTED. FOUR UNITS IF BS OVER 120 ,6 UNITS IF BS AT 200 ,8 UNITS IF BS AT 300, 12 UNITS IF BS 400 THREE TIMES DAILY BEFORE MEALS. MAXIMUM 60 UNITS / DAY, # 15 mL, 11 Refills, 03/03/22 15:23:00 EDT, [facility]... Start Date: 03/03/22 Status: Ordered isosorbide mononitrate 60 mg oral tablet, extended release 60 mg, 1, tablet, By Mouth, Daily in AM, # 30 tablet, Refills 5, Tot. Refills 5, Maintenance, 11/14/21 12:33:00 EDT, [facility] upon patient request if the prescription is for a schedule... Start Date: 11/14/21 Status: Ordered Jardiance 10 mg oral tablet 1 tablet, By Mouth, Daily in AM, # 30 tablet, 5 Refills, [facility], 164, cm, 11/21/21 14:03:00 EDT, Height, 87.5, kg, 02/10/21 9:00:00 EDT, Dry Weight Start Date: 02/16/22 Status: Ordered Lantus Solostar Pen 100 units/mL subcutaneous solution = 15 units, Subcutaneous Injection, Daily at bedtime, # 9 mL, 2 Refills, Maintenance, 05/07/20 13:08:00 EDT, Injection, [facility], 163, cm, 04/21/20 22:04:00 EDT, Height, 91, kg, 04/19/20 23:16:00 EDT, Dry Weight Start Date: 05/07/20 Stop Date: 08/05/20 Status: Ordered Lantus Solostar Pen 100 units/mL subcutaneous solution See Instructions, INJECT 15 UNITS SUBCUTANEOUSLY DAILY AT BEDTIME, # 15 mL, 11 Refills, 03/03/22 15:18:00 EDT, [facility], 164, cm, 03/03/22 14:46:00 EDT, Height, 87.5, kg, 02/10/21 9:00:00 EDT, Dry Weight Start Date: 03/03/22 Status: Ordered Lipitor 80 mg oral tablet 1 tablet = 80 mg, By Mouth, Daily at bedtime, # 90 tablet, 3 Refills, Maintenance, 03/03/22 15:27:00 EDT, Tablet, [facility], Partial fill upon patient request, 164, cm, 03/03/22 14:46:00 EDT, Height, 87.5, kg, 02/10/21 9:00:00 EDT, Start Date: 03/03/22 Stop Date: 02/26/23 Status: Ordered lisinopril 10 mg oral tablet 1, tablet, By Mouth, Daily, for 30 days, # 30 tablet, Refills 5, Tot. Refills 5, Physician Stop 09/05/22 11:46:00 EST, 03/09/22 11:46:00 EDT, Route to Pharmacy Electronically, [facility], 164, cm, 03/03/22 14:46:00 EDT, Height, 87.5, k... Start Date: 03/09/22 Stop Date: 09/05/22 Status: Ordered LORazepam 0.5 mg oral tablet 1 tablet = 0.5 mg, By Mouth, 2 times a day, PRN as needed for anxiety, 0 Refills, Maintenance, 02/10/21 7:22:00 EDT, Tablet, Partial fill upon patient request if the prescription is for a schedule IIopioid drug. Start Date: 02/10/21 Status: Ordered medical alert system medical alert system, See Instructions, # 1 each, Refills 0, Tot. Refills 0, Maintenance, dx: T2DM with severe neuropathy, frequent falls ICD10: E11.40 duration: 99, 03/13/22 12:34:00 EDT, Supply Start Date: 03/13/22 Status: Ordered Metoprolol Succinate ER 50 mg oral tablet, extended release 1.5 tablet, By Mouth, Daily, # 90 tablet, 3 Refills, [facility], 164, cm, 03/02/21 8:40:00 EDT,Height, 87.5, kg, 02/10/21 9:00:00 EDT, Dry Weight Start Date: 08/31/21 Status: Ordered mirtazapine 7.5 mg oral tablet 2 tablet = 15 mg, By Mouth, Daily at bedtime, 0 Refills, Maintenance, 02/10/21 7:26:00 EDT, Partialfill upon patient request if the prescription is for a schedule II opioid drug. Start Date: 02/10/21 Status: Ordered pregabalin 75 mg oral capsule 1 capsule = 75 mg, By Mouth, 2 times a day, # 60 capsule, 3 Refills, Maintenance, 03/03/22 15:29:00EDT, Capsule, [facility], Partial fill upon patient request if the prescription is for a schedule II opioid drug., 164, cm, 03/03/22 14... Start Date: 03/03/22 Stop Date: 07/01/22 Status: Ordered rollator walker w/ 4 wheels, seat and brakes rollator walker w/ 4 wheels, seat and brakes, See Instructions, # 1 each, Refills 0, Tot. Refills 0, Maintenance, dx: diabetes with neuropathy ICD10: E11.40 duration: 99 weeks height: 163 cm weight: 91kg, 08/26/20 16:56:00 EST, sent to [facility]. Start Date: 08/26/20 Status: Ordered rollator walker w/ 4 wheels, seat and brakes rollator walker w/ 4 wheels, seat and brakes, See Instructions, # 1 each, Refills 0, Tot. Refills 0, Maintenance, dx: diabetes with neuropathy ICD10: E11.40 duration: 99 weeks height: 164cm weight: 93kg, 11/21/21 16:40:00 EDT, sent to [facility].. Start Date: 11/21/21 Status: Ordered shower bars [...] mg, 1.5, tablet, By Mouth, Daily, # 45 each, Refills 3, Tot. Refills 3, Maintenance, 08/26/21 13:58:00 EST, Route to Pharmacy Electronically, [facility], Partial fill upon patient request if the prescription is for a schedule II opi... Start Date: 08/26/21 Status: Ordered traZODone 50 mg oral tablet 1, tablet, By Mouth, Daily at bedtime, PRN, # 30 tablet, Refills 5, Tot. Refills 5, Maintenance, ASNEEDED FOR SLEEP, 11/14/21 12:34:00 EDT, Route to Pharmacy Electronically, [facility], 164, cm, 03/02/21 8:40:00 EDT, Height, 87.5, kg,... Start Date: 11/14/21 Status: Ordered walker with wheels and brakes walker with wheels and brakes, See Instructions, # 1 each, Refills 0, Tot. Refills 0, Maintenance, dx: diabetic neuropathy, T1DM ICD10: E10.42 duration: 99 weeks, 06/03/20 11:27:00 EST, Supply Start Date: 06/03/20 Status: Ordered Problem List Condition Effective Dates Status Health Status Inform ant CAD (coronary artery disease)(Confirmed) Active Diabetic peripheral neuropathy(Confirmed) Active Diabetic nephropathy(Confirmed) Active Dysphagia(Confirmed) Active Hallucinations(Confirmed) Active Hypertension(Confirmed) Active Ischemic cardiomyopathy EF 3 0-35% on Echo 12/2018(Confirmed) Active Anxiety and depression(Confirmed) Active Obese class I(Confirmed) Active Care coordination N-CP C are Management Bre Skinner, CC [phone](Confirmed) 02/02/19 Active Thrombocytopenia(Confirmed) Active TIA (transient ischemic attack)(Confirmed) Active T2DM (type 2 diabetes mellitus)(Confirmed) Active Social History Social History Type Response Smoking Status Never (less than 100 in lifetime) entered on: 06/19/19 Sex Care Team Personnel Name: Claire Trujillo MD Address: [address] [place] [address]
--- OUTSIDE RECORDS SUMMARY | 2023-12-10 00:44 | XMS_ITS | Continuity of Care Document ---
Author Organization [facility] Address [address] [place] [address]- Care Team Providers Care Assembler Hydraulic Backhoe Name Role Phone Claire Trujillo MD Primary Care Physician Encounter [facility] [place] Date(s): 06/19/23 - 07/19/[address] [address]- Allergies, Adverse Reactions, Alerts Substance Reaction Severity Status metFORMIN 1 GI symptoms Active 1GI intolreance Immunizations Given and Recorded Vaccine Date Status Refusal Reason SARS-CoV-2 mRNA (dswppjp-etvr-hojtc) vax 03/03/22 Given SARS-CoV-2 mRNA (zlvomgw-ozmf-cytld) vax 08/27/21 Given SARS-CoV-2 (COVID-19) mRNA BNT-162b2 [...] 0 Refills, Maintenance, 11/27/22 11:10:00 EDT, [facility] upon patient request if the prescri... Start Date: 11/27/22 Status: Ordered aspirin 81 mg oral delayed release tablet 81 mg, 1, tablet, By Mouth, Daily, blood thinner/ hace la leonard mas cullen - para proteger el paty/ arterias tapadas en el paty, # 90 tablet, Refills 3, Tot. Refills 3, Maintenance, 07/19/23 13:01:00 EST, [facility] Start Date: 07/19/23 Stop Date: 07/13/24 Status: Ordered bed liners bed liners, See Instructions, # 60 each, Refills 11, Tot. Refills 11, Maintenance, dx: incontinence, T1DM icd10: N31.9 duration: 99 weeks, 07/10/23 10:54:00 EST, Supply Start Date: 07/10/23 Status: Ordered blood pressure cuff blood pressure [...] 05/02/23 16:08:00 EDT, Route to Pharmacy Electronically, [facility], Partial fill upon patient request if the pr... Start Date: 05/02/23 Stop Date: 07/01/23 Status: Ordered Flomax 0.4 mg oral capsule 0.8 mg, 2, capsule, By Mouth, Daily, # 180 capsule, Refills 1, Tot. Refills 1, Maintenance, 07/19/23 13:01:00 EST, Route to Pharmacy Electronically, [facility]/pharmacy #[id number], Partial fill upon patient request if the prescription is for a schedule II opioid... Start Date: 07/19/23 Stop Date: 01/15/24 Status: Ordered FreeStyle Vladislav 2 Monitor See [...] E10.42 duration: 99 weeks. Fax to [facility], 05/11/21 11:23:00 EDT, Supply Start Date: 05/11/21 Status: Ordered Home blood pressure monitor Home blood pressure monitor, See Instructions, # 1 each, Refills 0, Tot. Refills 0, Maintenance, ICD 10 I95.1; E11. 43 ALEIDA: [facility] 12:53:00 EST, Supply Start Date: 05/25/22 Status: Ordered HumaLOG KwikPen 100 units/mL injectable solution See Instructions, Mealtime insulin; dose according to finger stick before meals FS 100-199: 5 unitsFS: 200-249: 6 units FS 250-299: 7 units FS above 300: 8 units, # 15 mL, 1 Refills, 05/15/23 10:16:00 EDT, [facility], No insur... Start Date: 05/15/23 Status: Ordered isosorbide mononitrate 30 mg oral tablet, extended release 30 mg, 1, tablet, By Mouth, Daily at bedtime, Para el paty. Noelle antes de acostarse., # 30 tablet, Refills 3, Tot. Refills 3, Maintenance, 07/19/23 13:01:00 EST, Route to Pharmacy Electronically, [facility]/pharmacy #[id number], Partial fill upon patient reque... Start Date: 07/19/23 Stop Date: 11/16/23 Status: Ordered Jardiance 25 mg oral tablet 1 tablet = 25 mg, By Mouth, Daily in AM, # 30 tablet, 5 Refills, Maintenance, 07/19/23 13:00:00 EST, [facility]/pharmacy #[id number], Partial fill upon patient request if the prescription is for a schedule II opioid drug., 165, cm, 04/16/23 8:59:00 EDT, Height, 84... Start Date: 07/19/23 Stop Date: 01/15/24 Status: Ordered Lantus Solostar Pen 100 units/mL subcutaneous solution = 23 units, Subcutaneous Injection, Daily at bedtime, for 30 days, Insulina de 24 horas., # 15 mL, 11 Refills, Hard Stop 07/13/24 13:01:00 EST, 07/19/23 13:01:00 EST, Injection, [facility]/pharmacy #[id number], increase in dose, 165, cm, 04/16/23 8:59:00 EDT, [facility]... Start Date: 07/19/23 Stop Date: 07/13/24 Status: Ordered Lantus Solostar Pen 100 units/mL subcutaneous solution = 23 units, Subcutaneous Injection, Daily at bedtime, Insulina de 24 horas., # 15 mL, 1 Refills, Maintenance, 04/26/24 16:08:00 EDT, Injection, [facility], No insurance (Medicare not active until 06/15). Please dispense via 340B., 165,... Start Date: 04/26/24 Status: Ordered Lipitor 80 mg oral tablet 1 tablet = 80 mg, By Mouth, Daily at bedtime, para colesterol / proteger el paty/ arterias tapadas en el paty, # 90 tablet, 3 Refills, Maintenance, 07/19/23 13:00:00 EST, Tablet, [id number], Partial fill upon patient request, 165, cm, 10... Start Date: 07/19/23 Stop Date: 07/13/24 Status: Ordered medical alert system medical alert [...] tablet, Refills 3, Tot. Refills 3, Maintenance, 07/19/23 13:01:00 EST, Route to Pharmacy Electronically, [facility]/pharmacy #[id number],... Start Date: 07/19/23 Stop Date: 07/13/24 Status: Ordered morphine 15 mg/8 to 12 hr oral tablet, extended release 1 tablet = 15 mg, By Mouth, Every 12 hours, # 56 tablet, 0 Refills, Maintenance, 07/05/23 17:04:00 EST, ER Tablet, [facility]/pharmacy #[id number], Partial fill upon patient request if the prescription is for a schedule II opioid drug. in addition to oxycodone ; ;... Start Date: 07/05/23 Stop Date: 08/02/23 Status: Ordered nortriptyline 10 mg oral capsule [...] days, # 112 tablet, 0 Refills, Acute 08/02/23 17:05:00 EST, 07/05/23 17:05:00 EST, [facility]/pharmacy #[id number], Partial fill upon patient request ifthe prescription is for a schedule II opioid drug.... Start Date: 07/05/23 Stop Date: 08/02/23 Status: Ordered pullups - adult size medium pullups - adult size medium, See Instructions, # 240 each, Refills 11, Tot. Refills 11, Maintenance, dx: incontinence, T1DM icd10: N31.9 duration: 99 weeks note size change, 07/10/23 10:54:00 EST, Supply Start Date: 07/10/23 Status: Ordered raised toilet seat raised toilet [...] weight: 93kg, 11/21/21 16:40:00 EDT, sent to [facility] Start Date: 11/21/21 Status: Ordered shower bars [...] Team Personnel Name: Sorin Moser RN Position: [facility] RN Member Role: Primary Care Nurse Name: Ya Wilson RN Position: [facility] RN Member Role: Primary Care Nurse Name: Brandi Wei RN Position: [facility] RN Member Role: Primary Care Nurse Name: Valentina Leiva RN Position: [facility] SN RN Member Role: Primary Care Nurse Name: Macarena Bedolla Position: [facility] Outreach Member Role: Lifetime Consulting Physician Name: Abigail Nuno RN Position: [facility] Onco RN Member Role: Primary Care Nurse Name: Claire Trujillo MD Position: [facility] Physician - Primary Care Member Role: PCP Address: Address: [address] [place] [address] Name: Heidi Dao Position: [facility] RN Member Role: Primary Care Nurse Care Team Related Persons Name: OJEL BRIZUELA Address: home [address] [place] [address], [place] [address]
--- OUTSIDE RECORDS SUMMARY | 2023-12-10 00:44 | XMS_ITS | Continuity of Care Document ---
Author Organization [facility] Address [address] [place] [address]- Care Team Providers Care Claims Analyst Name Role Phone Claire Trujillo MD Primary Care Physician [place] [facility] [place]/26[place] - 02/25/[address] [address]- [facility] Allergies, Adverse Reactions, Alerts Substance Reaction Severity [...] day, # 60 tablet, 5 Refills, Maintenance, 01/26/20 15:36:00 EDT, Tablet, [facility]/pharmacy #[id number], 1 tablet By Mouth 2 times a day, 165, cm, 01/12/20 16:41:00 EDT, Height, 91,kg, 06/19/19 16:55:00 EST, Dry Weight Start Date: 01/26/20 Status: Ordered FLUoxetine 20 mg oral capsule 1, capsule, By Mouth, Daily, # 90 capsule, Refills 3, Tot. Refills 3, Maintenance, 11/05/19 18:38:00 EDT, Route to Pharmacy Electronically, [facility], 165, cm, 07/21/19 14:31:00 EST, Height, [...] 07/28/19 15:59:00 EST, Route to Pharmacy Electronically, [facility], 165, cm, 07/21/19 14:31:00 EST, Height, 91, kg, 06/19/19 16:55:00 EST, Dry We... Start Date: 07/28/19 Stop Date: 07/22/20 Status: Ordered isosorbide mononitrate 30 mg oral tablet, extended release 1 tablet = 30 mg, By Mouth, Daily in AM, # 30 tablet, 11 Refills, Maintenance, 02/23/20 12:51:00 EDT, [facility], 165, cm, 01/12/20 16:41:00 EDT, Height, [...] 11/05/19 18:37:00 EDT, Route to Pharmacy Electronically, [facility], 165, cm, 07/21/19 14:31:00 EST, Height, [...] 02/03/20 10:00:00 EDT, Route to Pharmacy Electronically, [facility], 165, cm, 01/12/20 16:41:00 EDT, Height, [...] [facility]N-[facility] C are Management Bre Skinner, CC [phone](Confirmed) 02/02/19 Active Thrombocytopenia(Confirmed) Active Type 1 diabetes mellitus(Confirmed) Active Social History Social History Type Response Smoking Status Never (less than 100 in lifetime) entered on: 06/19/19 Sex
--- OUTSIDE RECORDS SUMMARY | 2023-12-10 00:44 | XMS_ITS | Continuity of Care Document ---
Author Organization [facility] Address [address] [place] [address]- Care Team Providers Care Pattern Changer Name Role Phone Claire Trujillo MD Primary Care Physician Encounter [facility] [place] [facility] R [id number] Date(s): 05/17/22 - 07/26/22 [facility] [address] [place] [address]- Attending Physician: José Zambrano MD Admitting Physician: José Zambrano MD Referring Physician: Gary WHITE, Marino Eubanks Allergies, Adverse Reactions, Alerts Substance Reaction Severity Status metFORMIN 1 GI symptoms Active 1GI intolreance Immunizations Given and Recorded Vaccine Date Status Refusal Reason SARS-CoV-2 mRNA (xhrhioj-ntau-ckpbx) vax 03/03/22 Given SARS-CoV-2 mRNA (ctlovyh-jemp-grhxh) vax 08/27/21 Given SARS-CoV-2 (COVID-19) mRNA BNT-162b2 [...] Moderate, Apply to legs for diabetic neuropathy. Tunisian sig, # 60 Gm, 1 Refills, Maintenance, 06/06/22 9:44:00 EST, Cream, [facility], Partial fill upon patient request if the [...] E10.42 duration: 99 weeks. Fax to [facility], 05/11/21 11:23:00 EDT, Supply Start Date: [...] 15 mL, 11 Refills, 06/01/22 10:46:00 EST, [facility] [place] 165, cm... Start Date: 06/01/22 Status: Ordered Jardiance 25 mg oral tablet 1 tablet = 25 mg, By Mouth, Daily in AM, # 30 tablet, 5 Refills, Maintenance, 06/01/22 10:45:00 EST, [facility], Partial fill upon patient request if the prescription is for a schedule II opioid drug., 165, cm, 06/01/22 10:18:00 EST, H... Start Date: 06/01/22 Stop Date: 11/28/22 Status: Ordered Lantus Solostar Pen 100 units/mL subcutaneous solution = 12 units, Subcutaneous Injection, Daily at bedtime, Insulina de 24 horas., # 6 mL, 11 Refills, Maintenance, 06/01/22 10:46:00 EST, Injection, [facility] [place] 165, cm, 06/01/22 10:18:00 EST, Height, 84.2, kg, 05/21/22 0:51:00 EDT, Dry Weight Start Date: 06/01/22 Stop Date: 05/27/23 Status: Ordered Lipitor 80 mg oral tablet 1 tablet = 80 mg, By Mouth, Daily at bedtime, para colesterol / proteger el paty/ arterias tapadas en el paty, # 30 tablet, 11 Refills, Maintenance, 05/04/22 10:23:00 EDT, [facility], [...] 05/04/22 10:27:00 EDT, Route to Pharmacy Electronically, [facility]... Start Date: 05/04/22 Status: Ordered nortriptyline [...] Type II DM, ICD10 E11.65. Fax to [address] [place] [address], 07/07/22 11:52:00 EST, Supply Start Date: 07/07/22 [...] weight: 93kg, 11/21/21 16:40:00 EDT, sent to [facility]. Start Date: 11/21/21 Status: Ordered shower [...] in recurrent falls Confirmed Active Care coordination [facility] Care Management Bre Skinner, CC [phone] Confirmed 02/02/19 Active Thrombocytopenia Confirmed Active TIA (transient ischemic attack) Confirmed Active T2DM (type 2 diabetes mellitus) Confirmed Active Social History Social History Type Response Smoking Status Never (less than 100 in lifetime) entered on: 06/19/19 Sex Patient Care team information Care Team Personnel Name: Sorin Moser RN Position: [facility] RN Member Role: Primary Care Nurse Name: Brandi Wie RN Position: [facility] RN Member Role: Primary Care Nurse Name: Ya Collier RN Position: [facility] PCO RN Member Role: Primary Care Nurse Name: Valentina Leiva RN Position: [facility] SN RN Member Role: Primary Care Nurse Name: Macarena Bedolla Position: [facility] Outreach Member Role: Lifetime Consulting Physician Name: Abigail Nuno RN Position: [facility] Onco RN Member Role: Primary Care Nurse Name: Claire Trujillo MD Position: [facility] Primary Care Physician Member Role: PCP Address: Address: [address] [place] [id number]- Name: Heidi Dao Position: [facility] RN Member Role: Primary Care Nurse Care Team Related Persons Name: JOEL BRIZUELA Address: [address] [address]
--- OUTSIDE RECORDS SUMMARY | 2023-12-10 00:44 | XMS_ITS | Continuity of Care Document ---
Author Organization [facility] Address [address] [place] [address]- Care Team Providers Care Seo Specialist Name Role Phone Claire Trujillo MD Primary Care Physician Encounter [facility] [place] Date(s): 01/26/20 - 02/25/[address] [address]- [facility] Allergies, Adverse Reactions, Alerts Substance [...] 5 Refills, Maintenance, 01/26/20 15:36:00 EDT, Tablet, [facility]/pharmacy #[id number], 1 tablet By Mouth 2 times a day, 165, cm, 01/12/20 16:41:00 EDT, Height, 91,kg, 06/19/19 16:55:00 EST, Dry Weight Start Date: 01/26/20 Status: Ordered FLUoxetine 20 mg oral capsule 1, capsule, By Mouth, Daily, # 90 capsule, Refills 3, Tot. Refills 3, Maintenance, 11/05/19 18:38:00 EDT, Route to Pharmacy Electronically, [facility], 165, cm, 07/21/19 14:31:00 EST, Height, [...] 07/28/19 15:59:00 EST, Route to Pharmacy Electronically, [facility], 165, cm, 07/21/19 14:31:00 EST, Height, 91, kg, 06/19/19 16:55:00 EST, Dry We... Start Date: 07/28/19 Stop Date: 07/22/20 Status: Ordered isosorbide mononitrate 30 mg oral tablet, extended release 1 tablet = 30 mg, By Mouth, Daily in AM, # 30 tablet, 11 Refills, Maintenance, 02/23/20 12:51:00 EDT, [facility], 165, cm, 01/12/20 16:41:00 EDT, Height, [...] 11/05/19 18:37:00 EDT, Route to Pharmacy Electronically, [facility], 165, cm, 07/21/19 14:31:00 EST, Height, [...] 02/03/20 10:00:00 EDT, Route to Pharmacy Electronically, [facility], 165, cm, 01/12/20 16:41:00 EDT, Height, [...] [facility]N-[facility] C are Management Bre Skinner, CC [phone](Confirmed) 02/02/19 Active Thrombocytopenia(Confirmed) Active Type 1 diabetes mellitus(Confirmed) Active Social History Social History Type Response Smoking Status Never (less than 100 in lifetime) entered on: 06/19/19 Sex
--- OUTSIDE RECORDS SUMMARY | 2023-12-10 00:44 | XMS_ITS | Continuity of Care Document ---
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 Refills 0, Maintenance, Wear for diabetic foot care. Diagnosis: Type II DM, ICD10 E11.65. Fax to [facility], 10/28/20 14:47:00 EDT, Supply Start [...] PLUS 1 MORE TIME NEEDED FOR SYMPTOMS, [facility] Start Date: 04/21/19 Status: Ordered FREESTYLE LANCETS 100CT See Instructions, # 100 each, Refills 11 Tot. Refills 11, USE DIRECTED FOR TYPE 1 DIABETES, [facility] Start Date: 03/18/19 Status: Ordered [...] 01/06/21 12:38:00 EDT, Route to Pharmacy Electronically, [facility], 163, cm, 01/03/21 10:40:00 EDT, Height, 91, kg, 04/19/20 23:16:00 EDT, Dry Weight Start Date: 01/06/21 Status: Ordered Hand Held Shower Head Hand Held Shower Head, See Instructions, # 1 each, Refills 0, Tot. Refills 0, Maintenance, diagnosis: diabetic neuropathy, T1DM. ICD10: E10.42 duration: 99 weeks. Fax to Cheryl ([facility]), 10/28/20 14:53:00 EDT, Supply Start Date: 10/28/20 Status: Ordered HumaLOG KwikPen 100 units/mL injectable solution See Instructions, INJECT UNDER THE SKIN DIRECTED. FOUR UNITS IF BS OVER 120 ,6 UNITS IF BS AT 200 ,8 UNITS IF BS AT 300, 12 UNITS IF BS 400 THREE TIMES DAILY BEFORE MEALS. MAXIMUM 60 UNITS / DAY, # 15 mL, 11 Refills, Maintenance, [facility], 16... Start Date: 10/25/20 Status: Ordered isosorbide mononitrate 60 mg oral tablet, extended release 60 mg, 1, tablet, By Mouth, Daily in AM, # 90 tablet, Refills 3, Tot. Refills 3, Maintenance, 01/03/21 10:57:00 EDT, Route to Pharmacy Electronically, [facility], Partial fill upon patient request if the prescription is for a schedule II opioid drSophia. Start Date: 01/03/21 Status: Ordered Lantus Solostar Pen 100 units/mL subcutaneous solution = 15 units, Subcutaneous Injection, Daily at bedtime, # 9 mL, 2 Refills, Maintenance, 05/07/20 13:08:00 EDT, Injection, [facility], 163, cm, 04/21/20 22:04:00 EDT, Height, 91, kg, 04/19/20 23:16:00 EDT, Dry Weight Start Date: 05/07/20 Stop Date: 08/05/20 Status: Ordered Lipitor 80 mg oral tablet 1 tablet = 80 mg, By Mouth, Daily at bedtime, # 90 tablet, 3 Refills, Maintenance, 03/07/21 9:07:00EDT, Tablet, [facility]/pharmacy #[id number], Partial fill upon patient request, 164, cm, 03/02/21 8:40:00 EDT, Height, 87.5, kg, 02/10/21 9:00:00 EDT, Dry Weight Start Date: 03/07/21 Stop Date: 03/02/22 Status: Ordered lisinopril 10 mg oral tablet 1, tablet, By Mouth, Daily, # 90 tablet, Refills 1, Tot. Refills 1, Maintenance, 10/30/20 18:37:00 EDT, Route to Pharmacy Electronically, [facility], 163, cm, 04/21/20 22:04:00 EDT, Height, 91, kg, 04/19/20 23:16:00 EDT, Dry Weight Start Date: 10/30/20 Stop Date: 04/28/21 Status: Ordered LORazepam 0.5 mg oral tablet [...] 91kg, 08/26/20 16:56:00 EST[facility] Start Date: 08/26/20 Status: Ordered shower bars [...] 01/03/21 10:57:00 EDT, Route to Pharmacy Electronically, [facility], Partial fill upon patient request ifthe prescription is for a schedule II opioid drug.,... Start Date: 01/03/21 Status: Ordered traZODone 50 mg oral tablet 1, tablet, By Mouth, Daily at bedtime, PRN, # 30 tablet, Refills 5, Tot. Refills 0, Maintenance, ASNEEDED FOR SLEEP, 01/05/21 15:11:00 EDT, Route to Pharmacy Electronically, [facility], 163, cm,01/03/21 10:40:00 EDT, Height, 91, [...] BHN-BHCP C are Management Bre Skinner, CC [phone](Confirmed) 02/02/19 Active Thrombocytopenia(Confirmed) Active T2DM (type 2 diabetes mellitus)(Confirmed) Active Social History Social History Type Response Smoking Status Never (less than 100 in lifetime) entered on: 06/19/19 Sex
--- OUTSIDE RECORDS SUMMARY | 2023-12-10 00:44 | XMS_ITS | Continuity of Care Document ---
Author Organization [facility] Address [address] [place] [id number]- Care Team Providers Care Hot Mill Roller Name Role Phone Claire Trujillo MD Primary Care Physician Encounter [facility] [place] Date(s): 05/12/22 - 06/18/22 [facility] [address] [place] [address]- Attending Physician: Renato Moe MD Admitting Physician: Renato Moe MD Referring Physician: Marino Vega MD Allergies, Adverse Reactions, Alerts Substance Reaction Severity Status metFORMIN 1 GI symptoms Active 1GI intolreance Immunizations Given and Recorded Vaccine Date Status Refusal Reason SARS-CoV-2 mRNA (xuhhqxl-nqme-cwgpk) vax 03/03/22 Given SARS-CoV-2 mRNA (uegasiq-fzzd-gbnps) vax 08/27/21 Given SARS-CoV-2 (COVID-19) mRNA BNT-162b2 [...] 05/04/22 10:23:00 EDT, Route to Pharmacy Electronically, [facility]... Start Date: 05/04/22 Status: Ordered bed liners [...] Moderate, Apply to legs for diabetic neuropathy. Danish sig, # 60 Gm, 1 Refills, Maintenance, 06/06/22 9:44:00 EST, Cream, [facility], Partial fill upon patient request if the presc... Start Date: 06/06/22 Status: Ordered Compression stockings, thigh-high Compression stockings, thigh-high, See Instructions, # 2 each, Refills 1, Tot. Refills 1, Maintenance, Grade II: 20-30mmHg Dispense 2 pairs ALEIDA 99; Dx I 95.1; G99. 0 Ht 164cm Wt 88.2kg BMI 32 Fax to [facility], 05/04/22 13:55:00 EDT, Supply Start Date: 05/04/22 Status: Ordered Diabetic Shoes with Inserts Diabetic Shoes with Inserts, See Instructions, # 2 each, Refills 0, Tot. Refills 0, Maintenance, Wear for diabetic foot care. Diagnosis: Type II DM, ICD10 E11.65. Fax to [address] [place] [address], 05/04/22 14:01:00 EDT, Supply Start Date: 05/04/22 Status: Ordered [...] E10.42 duration: 99 weeks. Fax to [facility], 05/11/21 11:23:00 EDT, Supply Start Date: 05/11/21 Status: Ordered Home blood pressure monitor Home blood pressure monitor, See Instructions, # 1 each, Refills 0, Tot. Refills 0, Maintenance, ICD 10 I95.1; E11. 43 ALEIDA: 99 [facility] rx to [facility], 05/25/22 12:53:00 EST, Supply Start Date: 05/25/22 Status: Ordered HumaLOG KwikPen 100 units/mL injectable solution See Instructions, Mealtime insulin; dose according to finger stick before meals FS 100-199: 5 unitsFS: 200-249: 6 units FS 250-299: 7 units FS above 300: 8 units, # 15 mL, 11 Refills, 06/01/22 10:46:00 EST, [facility]., 165, cm... Start Date: 06/01/22 Status: Ordered Jardiance 25 mg oral tablet 1 tablet = 25 mg, By Mouth, Daily in AM, # 30 tablet, 5 Refills, Maintenance, 06/01/22 10:45:00 EST, [facility], Partial fill upon patient request if the prescription is for a schedule II opioid drug., 165, cm, 06/01/22 10:18:00 EST, H... Start Date: 06/01/22 Stop Date: 11/28/22 Status: Ordered Lantus Solostar Pen 100 units/mL subcutaneous solution = 12 units, Subcutaneous Injection, Daily at bedtime, Insulina de 24 horas., # 6 mL, 11 Refills, Maintenance, 06/01/22 10:46:00 EST, [facility] 165, cm, 06/01/22 10:18:00 EST, Height, 84.2, kg, 05/21/22 0:51:00 EDT, Dry Weight Start Date: 06/01/22 Stop Date: 05/27/23 Status: Ordered Lipitor 80 mg oral tablet 1 tablet = 80 mg, By Mouth, Daily at bedtime, para colesterol / proteger el paty/ arterias tapadas en el paty, # 30 tablet, 11 Refills, Maintenance, 05/04/22 10:23:00 EDT, Tablet, [facility], Partial fill upon patient request, 16... Start Date: 05/04/22 Stop Date: 04/29/23 Status: Ordered LORazepam 0.5 mg oral tablet 1 tablet = 0.5 mg, By Mouth, Daily, PRN as needed for anxiety, for 30 days, Hasta noah vez al patito linda sea necesario para ansiedad severa/ ataque [...] 10:27:00 EDT, Route to Pharmacy Electronically, [facility]... Start Date: 05/04/22 Status: Ordered raised toilet seat raised toilet [...] 93kg, 11/21/21 16:40:00 EDT, sent to [facility]. Start Date: 11/21/21 Status: Ordered shower [...] EST, Supply Start Date: 06/03/20 Status: Ordered Tylenol 325 mg oral tablet 650 mg, 2, tablet, By Mouth, 3 times a day, PRN, for 30 days, # 100 tablet, Refills 1, Tot. Refills1, Acute 07/25/22 14:26:00 EST, for pain, 05/26/22 14:26:00 EST, Route to Pharmacy Electronically, [facility], Partial fill upon patien... Start Date: 05/26/22 Stop Date: 07/25/22 Status: Ordered walker with wheels and brakes [...] Confirmed Active Care coordination [facility] Care Management Bre Skinner, CC [phone] Confirmed 02/02/19 Active Thrombocytopenia Confirmed Active TIA (transient ischemic attack) Confirmed Active T2DM (type 2 diabetes mellitus) Confirmed Active Social History Social History Type Response Smoking Status Never (less than 100 in lifetime) entered on: 06/19/19 Sex Patient Care team information Care Team Personnel Name: Leanne Vásquez RN Position: [facility] RN Member Role: Primary Care Nurse Name: Sorin Moser RN Position: [facility] RN Member Role: Primary Care Nurse Name: Brandi Wei RN Position: [facility] RN Member Role: Primary Care Nurse Name: Ya Collier RN Position: [facility] PCO RN Member Role: Primary Care Nurse Name: Valentina Leiva RN Position: [facility] SN RN Member Role: Primary Care Nurse Name: Macarena Bedolla Position: [facility] Outreach Member Role: Lifetime Consulting Physician Name: Abigail Nuno RN Position: [facility] Onco RN Member Role: Primary Care Nurse Name: Claire Trujillo MD Position: [facility] Primary Care Physician Member Role: PCP Address: Address: [address] [place] [address] Name: Heidi Dao Position: [facility] RN Member Role: Primary Care Nurse Care Team Related Persons Name: JOEL BRIZUELA Address: home [address] [place] [address], [place] [address]
--- OUTSIDE RECORDS SUMMARY | 2023-12-10 00:44 | XMS_ITS | Continuity of Care Document ---
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 Name Role Phone Cassandra WHITE, Claire Primary Care Physician [place] [facility] [place] 11/27/22 - 03/08/23 [facility] [address] [place], [place] [address] Attending Physician: Nimisha Singer NP Admitting Physician: Nimisha Singer NP Referring Physician: Nimisha Singer NP Allergies, Adverse Reactions, Alerts Substance Reaction Severity Status metFORMIN 1 GI symptoms Active 1GI intolreance Immunizations Given and Recorded Vaccine Date Status Refusal Reason SARS-CoV-2 mRNA (lmubpas-wrqf-lzopz) vax 03/03/22 Given SARS-CoV-2 mRNA (bhbyhrh-qwau-eoslw) vax 08/27/21 Given SARS-CoV-2 (COVID-19) mRNA BNT-162b2 [...] 0 Refills, Maintenance, 11/27/22 11:10:00 EDT, Lotion, [facility] upon patient request if the prescri... Start Date: 11/27/22 Status: Ordered aspirin 81 mg oral delayed release tablet 81 mg, 1, tablet, By Mouth, Daily, blood thinner/ hace la leonard mas cullen - para proteger el paty/ arterias tapadas en el paty, # 30 tablet, Refills 11, Tot. Refills 11, Maintenance, 05/04/22 10:23:00 EDT, Route to Pharmacy Electronically, [facility]... Start Date: 05/04/22 Status: Ordered bed [...] Moderate, Apply to legs for diabetic neuropathy. Omani sig, # 60 Gm, 1 Refills, Maintenance, 06/06/22 9:44:00 EST, Cream, [facility], Partial fill upon patient request if the [...] 01/04/23 15:22:00 EDT, Route to Pharmacy Electronically, [facility], Partial fill upon patient request if the pre... Start Date: 01/04/23 Stop Date: 03/05/23 Status: Ordered Flomax 0.4 mg oral capsule 0.8 mg, 2, capsule, By Mouth, Daily, # 180 capsule, Refills 0, Tot. Refills 0, Maintenance, 10/16/22 13:34:00 EDT, Route to Pharmacy Electronically, [facility], Partial fill upon patient request if the [...] duration: 99 weeks. Fax to Cheryl ([facility]), 05/11/21 11:23:00 EDT, Supply Start Date: 05/11/21 Status: Ordered Home blood pressure monitor Home blood pressure monitor, See Instructions, # 1 each, Refills 0, Tot. Refills 0, Maintenance, ICD 10 I95.1; E11. 43 ALEIDA: [facility] 12:53:00 EST, Supply Start Date: 05/25/22 Status: Ordered HumaLOG KwikPen 100 units/mL injectable solution See Instructions, Mealtime insulin; dose according to finger stick before meals FS 100-199: 5 unitsFS: 200-249: 6 units FS 250-299: 7 units FS above 300: 8 units, # 15 mL, 11 Refills, 06/01/22 10:46:00 EST, [facility]., 165, cm... Start Date: 06/01/22 Status: Ordered Jardiance 25 mg oral tablet 1 tablet = 25 mg, By Mouth, Daily in AM, # 30 tablet, 5 Refills, Maintenance, 11/08/22 15:44:00 EDT, [facility]., Partial fill upon patient request if the prescription is for a schedule II opioid drug., 165, cm, 09/04/22 13:02:00 EST, H... Start Date: 11/08/22 Stop Date: 05/07/23 Status: Ordered Lantus Solostar Pen 100 units/mL subcutaneous solution = 23 units, Subcutaneous Injection, Daily at bedtime, Insulina de 24 horas., # 15 mL, 11 Refills, Maintenance, 01/02/23 13:26:00 EDT, Injection, [facility] increase in dose, 165, cm,01/02/23 13:02:00 EDT, Height, 84.2, kg, 05/21/22 0... Start Date: 01/02/23 Stop Date: 12/28/23 Status: Ordered Lipitor 80 mg oral tablet 1 tablet = 80 mg, By Mouth, Daily at bedtime, para colesterol / proteger el paty/ arterias tapadas en el paty, # 30 tablet, 11 Refills, Maintenance, 05/04/22 10:23:00 EDT, Tablet, [facility], Partial fill upon patient request, 16... Start [...] 05/04/22 10:27:00 EDT, Route to Pharmacy Electronically, [facility]... Start Date: 05/04/22 Status: Ordered nortriptyline [...] 02/12/23 15:59:00 EDT, Route to Pharmacy Electronically, [facility], Partial fill upon patient... Start Date: 02/12/23 [...] weight: 93kg, 11/21/21 16:40:00 EDT, sent to [facility] Start Date: 11/21/21 Status: Ordered shower bars [...] Team Personnel Name: Sorin Moser RN Position: [facility] RN Member Role: Primary Care Nurse Name: Brandi Wei RN Position: [facility] RN Member Role: Primary Care Nurse Name: Ya Collier RN Position: [facility] AMB Office Staff Member Role: Primary Care Nurse Name: Valentina Leiva RN Position: [facility] SN RN Member Role: Primary Care Nurse Name: Macarena Bedolla Position: [facility] Outreach Member Role: Lifetime Consulting Physician Name: Abigail Nuno RN Position: [facility] Onco RN Member Role: Primary Care Nurse Name: Claire Trujillo MD Position: [facility] Physician - Primary Care Member Role: PCP Address: Address: [address] [place] [address]- Name: Heidi Dao Position: [facility] RN Member Role: Primary Care Nurse Care Team Related Persons Name: BRIZUELAJOEL LOTT Address: [address] [address]
--- OUTSIDE RECORDS SUMMARY | 2023-12-10 00:44 | XMS_ITS | Continuity of Care Document ---
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 Senior Bookkeeper Name Role Phone Claire Trujillo MD Primary Care Physician Encounter [facility] [place] Date(s): 11/17/21 - 12/17/[address] [address]- Allergies, Adverse Reactions, Alerts Substance Reaction Severity Status metFORMIN 1 GI symptoms Active 1GI intolreance Immunizations Given and Recorded Vaccine Date Status Refusal Reason SARS-CoV-2 mRNA (abjhqxy-foyx-thhws) vax 08/27/21 Given SARS-CoV-2 (COVID-19) mRNA BNT-162b2 [...] tablet, By Mouth, Daily, # 90 tablet, 1 Refills, Maintenance, 10/17/21 10:37:00 EDT, [facility] 164, cm, 03/02/21 8:40:00 EDT, Height, 87.5, kg, 02/10/21 9:00:00 EDT, Dry Weight Start Date: 10/17/21 Status: Ordered bed liners bed liners, See [...] EDT, Supply Start Date: 05/11/21 Status: Ordered calcium (as carbonate)-vitamin D 500 mg-400 intl units oral tablet 1 tablet, By Mouth, 2 times a day, # 60 tablet, 5 Refills, 08/10/21 14:27:00 EST, [facility] 30, 1 tablet By Mouth 2 times a day, 164, cm, 03/02/21 8:40:00 EDT, Height, 87.5, kg, 02/10/21 9:00:00 EDT, Dry Weight Start Date: 08/10/21 Status: Ordered Diabetic Shoes with Inserts Diabetic Shoes with Inserts, See Instructions, # 2 each, Refills 0, Tot. Refills 0, Maintenance, Wear for diabetic foot care. Diagnosis: Type II DM, ICD10 E11.65. Fax to [facility], 10/28/20 14:47:00 EDT, Supply Start [...] PLUS 1 MORE TIME NEEDED FOR SYMPTOMS, [facility] Start Date: 04/21/19 Status: Ordered FREESTYLE LANCETS 100CT See Instructions, # 100 each, Refills 11 Tot. Refills 11, USE DIRECTED FOR TYPE 1 DIABETES, [facility] Start Date: 03/18/19 Status: Ordered [...] times a day, # 60 capsule, Refills 2, Route to Pharmacy Electronically, [facility], 164, cm, 03/02/21 8:40:00 EDT, Height, 87.5, kg, 02/10/21 9:00:00 EDT, Dry Weight Start Date: 11/14/21 Status: Ordered Hand Held Shower Head Hand Held Shower Head, See Instructions, # 1 each, Refills 0, Tot. Refills 0, Maintenance, diagnosis: diabetic neuropathy, T1DM. ICD10: E10.42 duration: 99 weeks. Fax to Cheryl ([facility]), 05/11/21 11:23:00 EDT, Supply Start Date: 05/11/21 Status: Ordered isosorbide mononitrate 60 mg oral tablet, extended release 60 mg, 1, tablet, By Mouth, Daily in AM, # 30 tablet, Refills 5, Tot. Refills 5, Maintenance, 11/14/21 12:33:00 EDT, Route to Pharmacy Electronically, [facility], Partial fill upon patient request if the prescription is for a schedule... Start Date: 11/14/21 Status: Ordered Jardiance 10 mg oral tablet 1 tablet, By Mouth, Daily in AM, # 30 tablet, 2 Refills, 11/14/21 12:32:00 EDT, [facility], 164, cm, 03/02/21 8:40:00 EDT, Height, 87.5, kg, 02/10/21 9:00:00 EDT, Dry Weight Start Date: 11/14/21 Status: Ordered Lantus Solostar Pen 100 units/mL subcutaneous solution = 15 units, Subcutaneous Injection, Daily at bedtime, # 9 mL, 2 Refills, Maintenance, 05/07/20 13:08:00 EDT, Injection, [facility], 163, cm, 04/21/20 22:04:00 EDT, Height, 91, kg, 04/19/20 23:16:00 EDT, Dry Weight Start Date: 05/07/20 Stop Date: 08/05/20 Status: Ordered Lantus Solostar Pen 100 units/mL subcutaneous solution See Instructions, INJECT 15 UNITS SUBCUTANEOUSLY DAILY AT BEDTIME, # 15 mL, 2 Refills, 08/10/21 14:27:00 EST, [facility], 164, cm, 03/02/21 8:40:00 EDT, Height, 87.5, kg, 02/10/21 9:00:00 EDT, Dry Weight Start Date: 08/10/21 Status: Ordered Lipitor 80 mg oral tablet 1 tablet = 80 mg, By Mouth, Daily at bedtime, # 30 tablet, 5 Refills, Maintenance, 10/17/21 10:36:00 EDT, Tablet, [facility], Partial fill upon patient request, 164, cm, 03/02/21 8:40:00 EDT, Height, 87.5, kg, 02/10/21 9:00:00 EDT, Dry... Start Date: 10/17/21 Status: Ordered lisinopril 10 mg oral tablet 1, tablet, By Mouth, Daily, # 30 each, Refills 5, Tot. Refills 5, 10/17/21 10:36:00 EDT, Route to Pharmacy Electronically, [facility], 164, cm, 03/02/21 8:40:00 EDT, Height, 87.5, kg,02/10/21 9:00:00 EDT, Dry Weight Start Date: 10/17/21 Status: Ordered LORazepam 0.5 mg oral tablet 1 tablet = 0.5 mg, By Mouth, 2 times a day, PRN as needed for anxiety, 0 Refills, Maintenance, 02/10/21 7:22:00 EDT, Tablet, Partial fill upon patient request if the prescription is for a schedule IIopioid drug. Start Date: 02/10/21 Status: Ordered Metoprolol Succinate ER 50 mg oral tablet, extended release 1.5 tablet, By Mouth, Daily, # 90 tablet, 3 Refills, [facility], 164, cm, 03/02/21 8:40:00 EDT,Height, 87.5, kg, [...] weight: 91kg, 08/26/20 16:56:00 EST, [facility] to [facility]. Start Date: 08/26/20 Status: Ordered rollator walker w/ 4 wheels, seat and brakes rollator walker w/ 4 wheels, seat and brakes, See Instructions, # 1 each, Refills 0, Tot. Refills 0, Maintenance, dx: diabetes with neuropathy ICD10: E11.40 duration: 99 weeks height: 164cm weight: 93kg, 11/21/21 16:40:00 EDT, sent to [facility] Start Date: 11/21/21 Status: Ordered shower bars [...] 08/26/21 13:58:00 EST, Route to Pharmacy Electronically, [facility], Partial fill upon patient request if the prescription is for a schedule II opi... Start Date: 08/26/21 Status: Ordered traZODone 50 mg oral tablet 1, tablet, By Mouth, Daily at bedtime, PRN, # 30 tablet, Refills 5, Tot. Refills 5, Maintenance, ASNEEDED FOR SLEEP, 11/14/21 12:34:00 EDT, Route to Pharmacy Electronically, [facility], 164, cm, 03/02/21 8:40:00 EDT, Height, [...] Active Obese class I(Confirmed) Active Care coordination [facility] C are Management Bre Skinner, CC [phone](Confirmed) 02/02/19 Active Thrombocytopenia(Confirmed) Active T2DM (type 2 diabetes mellitus)(Confirmed) Active Social History Social History Type Response Smoking Status Never (less than 100 in lifetime) entered on: 06/19/19 Sex
--- OUTSIDE RECORDS SUMMARY | 2023-12-10 00:44 | XMS_ITS | Continuity of Care Document ---
Author Organization [facility] Address [address] [place] [address]- Care Team Providers Care Planning Analyst Name Role Phone Claire Trujillo MD Primary Care Physician [place] [facility] [id number] Date(s): 01/28/20 - 02/27/[address] [address]- [facility] Attending Physician: Uche Urena Admitting Physician: Uche Urena Referring Physician: AdmtrUche Allergies, Adverse Reactions, Alerts [...] 11, TAKE ONE TABLET BY MOUTH DAILY, [facility] Start Date: 04/16/19 Status: Ordered calcium [...] PLUS 1 MORE TIME NEEDED FOR SYMPTOMS, [facility] Start Date: 04/21/19 Status: Ordered FREESTYLE [...] 07/28/19 15:59:00 EST, Route to Pharmacy Electronically, [facility], 165, cm, 07/21/19 14:31:00 EST, Height, [...] 11/05/19 18:37:00 EDT, Route to Pharmacy Electronically, [facility] [...] 02/03/20 10:00:00 EDT, Route to Pharmacy Electronically, [facility], 165, cm, 01/12/20 16:41:00 EDT, Height, [...] N-CP C are Management Bre Skinner, CC [phone](Confirmed) 02/02/19 Active Thrombocytopenia(Confirmed) Active Type 1 diabetes mellitus(Confirmed) Active Social History Social History Type Response Smoking Status Never (less than 100 in lifetime) entered on: 06/19/19 Sex
--- OUTSIDE RECORDS SUMMARY | 2023-12-10 00:44 | XMS_ITS | Continuity of Care Document ---
Author Organization [facility] Address [address] [place] [id number]- Care Team Providers Care Senior Clinical Research Scientist Name Role Phone Cassandra WHITE, Claire Primary Care Physician Encounter [facility] [place] Date(s): 09/04/23 - 10/04/23 [facility] [address] [place] [address]- [place] Allergies, Adverse Reactions, Alerts Substance Reaction Severity Status metFORMIN 1 GI symptoms Active 1GI intolreance Immunizations Given and Recorded Vaccine Date Status Refusal Reason SARS-CoV-2 mRNA (eflbqtg-tzsw-[id number]) vax 03/03/22 Given SARS-CoV-2 mRNA (nstepje-hzrf-drqdp) vax 08/27/21 Given SARS-CoV-2 (COVID-19) mRNA BNT-162b2 [...] Refills, Maintenance, 11/27/22 11:10:00 EDT, [facility] upon patient request if the prescri... Start Date: 11/27/22 Status: Ordered Ankle foot orthostis Ankle foot orthostis, See Instructions, # 1 each, Refills 0, Tot. Refills 0, Maintenance, E11.40 needed for 99 weeks Fax to [facility], 09/24/23 17:56:00 EDT, Supply Start Date: 09/24/23 Status: Ordered aspirin 81 mg oral delayed release tablet 81 mg, 1, tablet, By Mouth, Daily, blood thinner/ hace la leonard mas cullen - para proteger el paty/ arterias tapadas en el paty, # 90 tablet, Refills 3, Tot. Refills 3, Maintenance, 09/09/23 9:59:00 EST, Route to Pharmacy [facility]ically, [facility]... Start Date: 09/09/23 Stop Date: 09/03/24 Status: [...] 05/02/23 16:08:00 EDT, Route to Pharmacy Electronically, [facility], Partial fill upon patient request if the pr... Start Date: 05/02/23 Stop Date: 07/01/23 Status: Ordered Flomax 0.4 mg oral capsule 0.8 mg, 2, capsule, By Mouth, Daily, # 180 capsule, Refills 1, Tot. Refills 1, Maintenance, 10/03/23 13:04:00 EDT, [facility]ically, [facility], Partial fill upon patient request [...] E10.42 duration: 99 weeks. Fax to [facility], 05/11/21 11:23:00 EDT, Supply Start Date: 05/11/21 Status: Ordered Home blood pressure monitor Home blood pressure monitor, See Instructions, # 1 each, Refills 0, Tot. Refills 0, Maintenance, ICD 10 I95.1; E11. 43 ALEIDA: [facility] 12:53:00 EST, Supply Start Date: [...] 09/09/23 9:57:00 EST, Route to Pharmacy Electronically, [facility], Partial fill upon patien... Start Date: 09/09/23 Stop Date: 09/03/24 Status: Ordered Jardiance 25 mg oral tablet 1 tablet = 25 mg, By Mouth, Daily in AM, # 90 tablet, 3 Refills, Maintenance, 09/09/23 9:59:00 EST,[facility], Partial fill upon patient request if [...] 09/27/24 13:03:00 EDT, 10/03/23 13:03:00 EDT, Injection, [facility], increase in dose, 166, cm, 09/24/23 15:24:00... Start Date: 10/03/23 Stop Date: 09/27/24 Status: Ordered Lantus Solostar Pen 100 units/mL subcutaneous solution = 23 units, Subcutaneous Injection, Daily at bedtime, Insulina de 24 horas., # 15 mL, 1 Refills, Maintenance, 04/26/24 16:08:00 EDT, Injection, [facility], No insurance (Medicare not active until 06/15). Please dispense via 340B., 165,... Start Date: 04/26/24 Status: Ordered Lipitor 80 mg oral tablet 1 tablet = 80 mg, By Mouth, Daily at bedtime, para colesterol / proteger el paty/ arterias tapadas en el paty, # 90 tablet, 3 Refills, Maintenance, 09/09/23 9:59:00 EST, Tablet, [facility] Partial fill upon patient request, 166,... [...] 9:57:00 EST, [facility]ically[facility] Start Date: 09/09/23 Stop Date: 09/03/24 Status: Ordered morphine 15 mg/8 to 12 hr oral tablet, extended release 1 tablet = 15 mg, By Mouth, Every 12 hours, # 56 tablet, 0 Refills, Maintenance, 09/28/23 10:34:00 EDT, ER Tablet, [facility]/pharmacy #[id number], Partial fill upon patient request [...] Acute 10/26/23 10:34:00 EDT, 09/28/23 10:34:00 EDT, [facility]/pharmacy #[id number], Partial fill upon patient request ifthe prescription is for a schedule II opioid drug.... Start Date: 09/28/23 Stop Date: 10/26/23 Status: Ordered powerwheel chair powerwheel chair, See Instructions, # 1 each, Refills 0, Tot. 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 99 weeks fax to [facility], 09/24/23 17:56:00 EDT, Supply Start [...] weight: 93kg, 11/21/21 16:40:00 EDT, sent to [facility] Start Date: 11/21/21 Status: Ordered shower [...] Care Nurse Name: Ya Wilson RN Position: S RN Member Role: Primary Care Nurse Name: Brandi Wei RN Position: S RN Member Role: Primary Care Nurse Name: Valentina Leiva RN Position: [facility] SN RN Member Role: Primary Care Nurse Name: Macarena Bedolla Position: [facility] Outreach Member Role: Lifetime Consulting Physician Name: Abigail Nuno RN Position: [facility] Onco RN Member Role: Primary Care Nurse Name: Claire Trujillo MD Position: [facility] Physician - Primary Care Member Role: PCP Address: Address: [address] [place] [id number] Name: Heidi Dao Position: [facility] RN Member Role: Primary Care Nurse Care Team Related Persons Name: JOEL BRIZUELA Address: [address] [place] [id number]
--- OUTSIDE RECORDS SUMMARY | 2023-12-10 00:44 | XMS_ITS | Continuity of Care Document ---
Author Organization [facility] Address [address] [place] [address]- Care Team Providers Care Capacity Planning Analyst Name Role Phone Claire Trujillo MD Primary Care Physician Encounter [facility] [place] Date(s): 09/28/20 - 11/06/[address] [address]- Attending Physician: Not on Staff, Attending MD [...] Type II DM, ICD10 E11.65. Fax to [facility], 10/28/20 14:47:00 EDT, Supply [...] Maintenance, 08/18/2115:13:00 EST, Route to Pharmacy Electronically, [facility], 163, cm, 04/21/20 22:04:00 EDT, Height, 91, kg, 04/19/20 23:16:00 EDT, Dry Weight Start Date: 08/18/20 Status: Ordered Hand Held Shower Head Hand Held Shower Head, See Instructions, # 1 each, Refills 0, Tot. Refills 0, Maintenance, diagnosis: diabetic neuropathy, T1DM. ICD10: E10.42 duration: 99 weeks. Fax to [facility] ([facility]), 10/28/20 14:53:00 EDT, Supply Start Date: 10/28/20 Status: Ordered HumaLOG KwikPen 100 units/mL injectable solution See Instructions, INJECT UNDER THE SKIN DIRECTED. FOUR UNITS IF BS OVER 120 ,6 UNITS IF BS AT 200 ,8 UNITS IF BS AT 300, 12 UNITS IF BS 400 THREE TIMES DAILY BEFORE MEALS. MAXIMUM 60 UNITS / DAY, # 15 mL, 11 Refills, Maintenance, [facility], 16... Start Date: 10/25/20 Status: Ordered isosorbide mononitrate 30 mg oral tablet, extended release 1 tablet = 30 mg, By Mouth, Daily in AM, # 30 tablet, 11 Refills, Maintenance, 02/23/20 12:51:00 EDT, [facility], 165, cm, 01/12/20 16:41:00 EDT, Height, [...] 3 Refills, Maintenance, 06/09/20 13:06:00 EST, Tablet, [facility], Partial fill upon patient request, [...] 08/26/20 16:56:00 EST[facility] Start Date: 08/26/20 Status: Ordered shower bars [...] 08/04/20 14:13:00 EST, Route to Pharmacy Electronically, [facility], 163, cm, 04/21/20 22:04:00 EDT, Height, [...] N-CP C are Management Bre Skinner, CC [phone](Confirmed) 02/02/19 Active Thrombocytopenia(Confirmed) Active Type 1 diabetes mellitus(Confirmed) Active Social History Social History Type Response Smoking Status Never (less than 100 in lifetime) entered on: 06/19/19 Sex
--- OUTSIDE RECORDS SUMMARY | 2023-12-10 00:44 | XMS_ITS | Continuity of Care Document ---
Author Organization [facility] Address [address] [place] [address]- Care Team Providers Care Supervisor Motorcycle [employer]air [employer] Name Role Phone Claire Trujillo MD Primary Care Physician [place] [facility] [place]/04/23 - 07/04/[address] [address]- Allergies, Adverse Reactions, Alerts Substance Reaction Severity Status metFORMIN 1 GI symptoms Active 1GI intolreance Immunizations Given and Recorded Vaccine Date Status Refusal Reason SARS-CoV-2 mRNA (xgnqupj-hymq-fnmxe) vax 03/03/22 Given SARS-CoV-2 mRNA (akxlwip-qvju-gcnvc) vax 08/27/21 Given SARS-CoV-2 (COVID-19) mRNA BNT-162b2 [...] 0 Refills, Maintenance, 11/27/22 11:10:00 EDT, [facility]otion[facility] fill upon patient request if the prescri... Start Date: 11/27/22 Status: Ordered aspirin 81 mg oral delayed release tablet 81 mg, 1, tablet, By Mouth, Daily, blood thinner/ hace la leonard mas cullen - para proteger el paty/ arterias tapadas en el paty, # 90 tablet, Refills 3, Tot. Refills 3, Maintenance, 05/02/23 16:07:00 EDT, Route to Pharmacy Electronically, [facility] Start Date: 05/02/23 Stop Date: 04/26/24 Status: [...] 05/02/23 16:08:00 EDT, Route to Pharmacy Electronically, [facility], Partial fill upon patient request if the pr... Start Date: 05/02/23 Stop Date: 07/01/23 Status: Ordered Flomax 0.4 mg oral capsule 0.8 mg, 2, capsule, By Mouth, Daily, # 180 capsule, Refills 1, Tot. Refills 1, Maintenance, 05/02/23 16:07:00 EDT, Route to Pharmacy Electronically, [facility], Partial fill upon patient request [...] E10.42 duration: 99 weeks. Fax to [facility] ([facility], 05/11/21 11:23:00 EDT, Supply Start [...] 15 mL, 1 Refills, 05/15/23 10:16:00 EDT, [facility] No [facility]ur... Start Date: 05/15/23 Status: Ordered isosorbide mononitrate 30 mg oral tablet, extended release 30 mg, 1, tablet, By Mouth, Daily at bedtime, Para el paty. Noelle antes de acostarse., # 30 tablet, Refills 3, Tot. Refills 3, Maintenance, 05/02/23 16:07:00 EDT, Route to Pharmacy Electronically, [facility], Partial fill upon telma... Start Date: 05/02/23 Stop Date: 08/30/23 Status: Ordered Jardiance 25 mg oral tablet 1 tablet = 25 mg, By Mouth, Daily in AM, # 30 tablet, 5 Refills, Maintenance, 05/02/23 16:09:00 EDT, [facility], Partial fill upon patient request [...] 04/26/24 16:08:00 EDT, 05/02/23 16:08:00 EDT, Injection, [facility], increase in dose, 165, cm, 04/16/23 8:59:00... Start Date: 05/02/23 Stop Date: 04/26/24 Status: Ordered Lantus Solostar Pen 100 units/mL subcutaneous solution = 23 units, Subcutaneous Injection, Daily at bedtime, Insulina de 24 horas., # 15 mL, 1 Refills, Maintenance, 04/26/24 16:08:00 EDT, Injection, [facility], No insurance (Medicare not active until 06/15). Please dispense via 340B., 165,... Start Date: 04/26/24 Status: Ordered Lipitor 80 mg oral tablet 1 tablet = 80 mg, By Mouth, Daily at bedtime, para colesterol / proteger el paty/ arterias tapadas en el paty, # 90 tablet, 3 Refills, Maintenance, 05/02/23 16:08:00 EDT, Tablet, [facility], Partial fill upon patient request, 16... [...] 05/02/23 16:08:00 EDT, Route to Pharmacy Electronically, [facility]... Start Date: 05/02/23 Stop Date: 04/26/24 Status: Ordered morphine 15 mg/8 to 12 hr oral tablet, extended release 1 tablet = 15 mg, By Mouth, Every 12 hours, # 56 tablet, 0 Refills, Maintenance, 06/29/23 16:32:00 EST, ER Tablet, [facility]/pharmacy #[id number], Partial fill upon patient request if the prescription is for a schedule II opioid drug. in addition to oxycodone ; f... Start Date: 06/29/23 Stop Date: 07/27/23 Status: Ordered nortriptyline 10 mg oral capsule [...] days, # 112 tablet, 0 Refills, Acute 07/27/23 16:34:00 EST, 06/29/23 16:34:00 EST, [facility]/pharmacy #[id number], Partial fill upon patient request ifthe prescription is for a schedule II opioid drug.... Start Date: 06/29/23 Stop Date: 07/27/23 Status: Ordered pullups - adult size medium [...] weight: 93kg, 11/21/21 16:40:00 EDT, sent to [facility]. Start Date: 11/21/21 Status: Ordered shower [...] Team Personnel Name: Sorin Moser RN Position: [facility] RN Member Role: Primary Care Nurse Name: Ya Wilson RN Position: [facility] RN Member Role: Primary Care Nurse Name: Brandi Wei RN Position: [facility] RN Member Role: Primary Care Nurse Name: Valentina Leiva RN Position: [facility] SN RN Member Role: Primary Care Nurse Name: Macarena Bedolla Position: [facility] Outreach Member Role: Lifetime Consulting Physician Name: Abigail Nuno RN Position: [facility] Onco RN Member Role: Primary Care Nurse Name: Claire Trujillo MD Position: [facility] Physician - Primary Care Member Role: PCP Address: Address: [address] [place] [address] Name: Heidi Dao Position: [facility] RN Member Role: Primary Care Nurse Care Team Related Persons Name: JOEL BRIZUELA Address: home [address] [place] [address]
--- OUTSIDE RECORDS SUMMARY | 2023-12-10 00:44 | XMS_ITS | Continuity of Care Document ---
Author Organization [facility] Address [address] [place] [address]- Care Team Providers Care Project Developer Name Role Phone Claire Trujillo MD Primary Care Physician Encounter [facility] Date(s): 03/30/20 - 04/29/[address] [address]- [facility] Allergies, Adverse Reactions, Alerts Substance [...] TABLET BY MOUTH DAILY, # 90 tablet, 0 Refills, Soft Stop, 03/30/20 18:04:00 EDT, [facility], please direct refill requests to PCP (Cassandra WHITE, Claire), 165, cm, 01/12/20 16:41:00 EDT, Height, 91, kg, 06/19/19 16:55:00 ES... Start Date: 03/30/20 Status: Ordered FLUoxetine 20 mg oral capsule [...] PLUS 1 MORE TIME NEEDED FOR SYMPTOMS, [facility] Start Date: 04/21/19 Status: Ordered FREESTYLE LANCETS 100CT See Instructions, # 100 each, Refills 11 Tot. Refills 11, USE DIRECTED FOR TYPE 1 DIABETES, KEVIN,[facility] Start Date: 03/18/19 Status: Ordered Freestyle Vladislav 14 day Sensor Freestyle Vladislva 14 day Sensor, See Instructions, # 2 [...] 07/28/19 15:59:00 EST, Route to Pharmacy Electronically, [facility], 165, cm, 07/21/19 14:31:00 EST, Height, 91,... Start Date: 07/28/19 Stop Date: 07/22/20 Status: Ordered isosorbide mononitrate 30 mg oral tablet, extended release 1 tablet = 30 mg, By Mouth, Daily in AM, # 30 tablet, 11 Refills, Maintenance, 02/23/20 12:51:00 EDT, [facility] [...] 11/05/19 18:37:00 EDT, [facility], [facility] [...] 02/03/20 10:00:00 EDT, Route to Pharmacy Electronically, [facility], 165, cm, 01/12/20 16:41:00 EDT, Height, 91, kg, 06/19/19 16:55:00 EST, Dry Weight Start Date: 02/03/20 Stop Date: 08/01/20 Status: Ordered walker with wheels and brakes walker with wheels and brakes, See Instructions, # 1 each, Refills 0, Tot. Refills 0, Maintenance, dx: diabetic neuropathy, T1DM ICD10: E10.42 duration: 99 weeks, 04/28/20 14:48:00 EDT, Supply Start Date: 04/28/20 Status: Ordered Problem List Condition Effective Dates Status Health Status Inform ant Diabetic peripheral neuropathy(Confirmed) Active Diabetic nephropathy(Confirmed) Active Dysphagia(Confirmed) Active Hallucinations(Confirmed) Active Hypertension(Confirmed) Active Ischemic cardiomyopathy EF 3 0-35% on Echo 12/2018(Confirmed) Active Anxiety and depression(Confirmed) Active Care coordination BHN-BHCP C are Management Bre Skinner, JOSE R [phone](Confirmed) 02/02/19 Active Thrombocytopenia(Confirmed) Active Type 1 diabetes mellitus(Confirmed) Active Social History Social History Type Response Smoking Status Never (less than 100 in lifetime) entered on: 06/19/19 Sex
--- OUTSIDE RECORDS SUMMARY | 2023-12-10 00:44 | XMS_ITS | Continuity of Care Document ---
Author Organization [facility] Address [address] [place] [address]- Care Team Providers Care Wall Taper Helper Name Role Phone Cassandra WHITE, Claire Primary Care Physician [place] [facility] [place] - 03/27/[address] [address]- [facility] Allergies, Adverse Reactions, Alerts Substance Reaction Severity [...] PLUS 1 MORE TIME NEEDED FOR SYMPTOMS, [facility] Start Date: 04/21/19 Status: Ordered FREESTYLE LANCETS 100CT See Instructions, # 100 each, Refills 11 Tot. Refills 11, USE DIRECTED FOR TYPE 1 DIABETES, KEVIN,[facility] Start Date: 03/18/19 Status: Ordered Freestyle [...] 07/28/19 15:59:00 EST, Route to Pharmacy Electronically, [facility], 165, cm, 07/21/19 14:31:00 EST, Height, 91, kg, 06/19/19 16:55:00 EST, Dry We... Start Date: 07/28/19 Stop Date: 07/22/20 Status: Ordered isosorbide mononitrate 30 mg oral tablet, extended release 1 tablet = 30 mg, By Mouth, Daily in AM, # 30 tablet, 11 Refills, Maintenance, 02/23/20 12:51:00 EDT, [facility], 165, cm, 01/12/20 16:41:00 EDT, Height, [...] 11/05/19 18:37:00 EDT, Route to Pharmacy Electronically, [facility], 165, cm, 07/21/19 14:31:00 EST, Height, [...] 02/03/20 10:00:00 EDT, Route to Pharmacy Electronically, [facility], 165, cm, 01/12/20 16:41:00 EDT, Height, [...] N-CP C are Management Bre Skinner, CC [phone](Confirmed) 02/02/19 Active Thrombocytopenia(Confirmed) Active Type 1 diabetes mellitus(Confirmed) Active Social History Social History Type Response Smoking Status Never (less than 100 in lifetime) entered on: 06/19/19 Sex
--- OUTSIDE RECORDS SUMMARY | 2023-12-10 00:44 | XMS_ITS | Continuity of Care Document ---
Author Organization [facility] Address [address] [place] [address]- Care Team Providers Care Sugar House Supervisor Name Role Phone Claire Trujillo MD Primary Care Physician Encounter [facility] [place] Date(s): 08/30/21 - 09/29/[address] [address]- Allergies, Adverse Reactions, Alerts Substance Reaction Severity Status metFORMIN 1 GI symptoms Active 1GI intolreance Immunizations Given and Recorded Vaccine Date Status Refusal Reason SARS-CoV-2 mRNA (scvotgm-imoj-ivucz) vax 08/27/21 Given SARS-CoV-2 (COVID-19) mRNA BNT-162b2 [...] Pads See Instructions, # 100 each, Refills 1, Tot. Refills 1, Maintenance, To test 3 times a day and with symptoms Dx: T2DM ICD10: E11.9 duration: 52 weeks, 08/10/21 14:27:00 EST, [facility], 164, cm, 03/02/21 8:40:00 EDT, Height, 87.5, kg, 02/10/21 9:00:... Start Date: 08/10/21 Status: Ordered ALCOHOL PADS 70% PAD ALCOHOL [...] tablet 1 tablet, By Mouth, Daily, # 30 tablet, 1 Refills, Maintenance, 08/10/21 14:27:00 EST, [facility], 164, cm, 03/02/21 8:40:00 EDT, Height, 87.5, kg, 02/10/21 9:00:00 EDT, Dry Weight Start Date: 08/10/21 Status: Ordered bed liners bed liners, See [...] 60 tablet, 5 Refills, 08/10/21 14:27:00 EST, [facility] 30, 1 tablet By Mouth 2 times a day, 164, cm, 03/02/21 8:40:00 EDT, Height, 87.5, kg, 02/10/21 9:00:00 EDT, Dry Weight Start Date: 08/10/21 Status: Ordered Diabetic Shoes with Inserts Diabetic Shoes with Inserts, See Instructions, # 2 each, Refills 0, Tot. Refills 0, Maintenance, Wear for diabetic foot care. Diagnosis: Type II DM, ICD10 E11.65. Fax to [facility], 10/28/20 14:47:00 EDT, Supply Start Date: [...] PLUS 1 MORE TIME NEEDED FOR SYMPTOMS, [facility] Start Date: 04/21/19 Status: Ordered FREESTYLE LANCETS 100CT See Instructions, # 100 each, Refills 11 Tot. Refills 11, USE DIRECTED FOR TYPE 1 DIABETES, [facility] Start Date: 03/18/19 Status: [...] a day, # 60 capsule, Refills 2, Tot. Refills 2, Maintenance, 08/10/2213:27:00 EST, Route to Pharmacy Electronically, [facility], 164, cm, 03/02/21 8:40:00 EDT, Height, 87.5, kg, 02/10/21 9:00:00 EDT, Dry... Start Date: 08/10/21 Status: Ordered Hand Held Shower Head Hand Held Shower Head, See Instructions, # 1 each, Refills 0, Tot. Refills 0, Maintenance, diagnosis: diabetic neuropathy, T1DM. ICD10: E10.42 duration: 99 weeks. Fax to Cheryl ([facility]), 05/11/21 11:23:00 EDT, Supply Start Date: 05/11/21 Status: Ordered isosorbide mononitrate 60 mg oral tablet, extended release 60 mg, 1, tablet, By Mouth, Daily in AM, # 30 tablet, Refills 2, Tot. Refills 2, Maintenance, 08/10/21 14:27:00 EST, Route to Pharmacy Electronically, [facility], Partial fill upon patient request if the prescription is for a schedule... Start Date: 08/10/21 Status: Ordered Jardiance 10 mg oral tablet 1 tablet, By Mouth, Daily in AM, # 30 tablet, 2 Refills, 08/10/21 14:27:00 EST, [facility], 164, cm, 03/02/21 8:40:00 EDT, Height, 87.5, kg, 02/10/21 9:00:00 EDT, Dry Weight Start Date: 08/10/21 Status: Ordered Lantus Solostar Pen 100 units/mL [...] 15 mL, 2 Refills, 08/10/21 14:27:00 EST, [facility], 164, cm, 03/02/21 8:40:00 EDT, Height, 87.5, kg, 02/10/21 9:00:00 EDT, Dry Weight Start Date: 08/10/21 Status: Ordered Lipitor 80 mg oral tablet 1 tablet = 80 mg, By Mouth, Daily at bedtime, # 30 tablet, 1 Refills, Maintenance, 08/10/21 14:27:00 EST, Tablet, [facility], Partial fill upon patient request, 164, cm, 03/02/21 8:40:00 EDT, Height, 87.5, kg, 02/10/21 9:00:00 EDT, Dry... Start Date: 08/10/21 Stop Date: 02/06/22 Status: Ordered lisinopril 10 mg oral tablet 1, tablet, By Mouth, Daily, # 30 each, Refills 1, Tot. Refills 1, 08/10/21 14:27:00 EST, Route to Pharmacy Electronically, [facility], 164, cm, 03/02/21 8:40:00 EDT, Height, 87.5, kg,02/10/21 9:00:00 EDT, Dry Weight Start Date: 08/10/21 Status: Ordered LORazepam 0.5 mg oral tablet [...] Mouth, Daily, # 90 tablet, 3 Refills, [facility], 164, cm, 03/02/21 [...] sent to [facility]... Start Date: 08/26/20 Status: Ordered shower bars [...] 08/26/21 13:58:00 EST, Route to Pharmacy Electronically, [facility], Partial fill upon patient request if the prescription is for a schedule II opi... Start Date: 08/26/21 Status: Ordered traZODone 50 mg oral tablet 1, tablet, By Mouth, Daily at bedtime, PRN, # 30 tablet, Refills 2, Tot. Refills 2, Maintenance, ASNEEDED FOR SLEEP, 08/10/21 14:27:00 EST, Route to Pharmacy Electronically, [facility], 164, cm, 03/02/21 8:40:00 EDT, Height, 87.5, kg,... Start Date: 08/10/21 Status: Ordered walker with wheels and brakes [...] BHN-BHCP C are Management Bre Skinner, CC [phone](Confirmed) 02/02/19 Active Thrombocytopenia(Confirmed) Active T2DM (type 2 diabetes mellitus)(Confirmed) Active Social History Social History Type Response Smoking Status Never (less than 100 in lifetime) entered on: 06/19/19 Sex
--- OUTSIDE RECORDS SUMMARY | 2023-12-10 00:44 | XMS_ITS | Continuity of Care Document ---
Author Organization [facility] Address [address] [place] [address]- Care Team Providers Care Lift Operator Name Role Phone Claire Trujillo MD Primary Care Physician [phone] [id number] Date[facility] 08/[facility] - 09/12/[address] [address]- Attending Physician: Magnus Myeer MD Admitting Physician: Magnus Meyer MD Allergies, Adverse Reactions, Alerts Substance Reaction Severity Status metFORMIN 1 GI symptoms Active 1GI intolreance Immunizations Given and Recorded Vaccine Date Status Refusal Reason SARS-CoV-2 mRNA (vioggid-ajqu-wockp) vax 08/27/21 Given SARS-CoV-2 (COVID-19) mRNA BNT-162b2 [...] E11.9 duration: 52 weeks, 08/10/21 14:27:00 EST, [facility], 164, cm, 03/02/21 8:40:00 EDT, [...] tablet, 1 Refills, Maintenance, 08/10/21 14:27:00 EST, [facility], 164, cm, 03/02/21 8:40:00 EDT, Height, 87.5, [...] 60 tablet, 5 Refills, 08/10/21 14:27:00 EST, [facility] 30, 1 tablet By Mouth 2 times a day, 164, cm, 03/02/21 8:40:00 EDT, Height, 87.5, kg, 02/10/21 9:00:00 EDT, Dry Weight Start Date: 08/10/21 Status: Ordered Diabetic Shoes with Inserts Diabetic Shoes with Inserts, See Instructions, # 2 each, Refills 0, Tot. Refills 0, Maintenance, Wear for diabetic foot care. Diagnosis: Type II DM, ICD10 E11.65. Fax to [facility], 10/28/20 14:47:00 EDT, Supply Start Date: 10/28/20 [...] 11, [facility]: [facility]18[facility] Status: Ordered [...] Maintenance, 08/10/2213:27:00 EST, Route to Pharmacy Electronically, [facility], 164, cm, 03/02/21 8:40:00 EDT, Height, 87.5, kg, 02/10/21 9:00:00 EDT, Dry... Start Date: 08/10/21 Status: Ordered Hand Held Shower Head Hand Held Shower Head, See Instructions, # 1 each, Refills 0, Tot. Refills 0, Maintenance, diagnosis: diabetic neuropathy, T1DM. ICD10: E10.42 duration: 99 weeks. Fax to [facility], 05/11/21 11:23:00 EDT, Supply Start Date: 05/11/21 Status: Ordered isosorbide mononitrate 60 mg oral tablet, extended release 60 mg, 1, tablet, By Mouth, Daily in AM, # 30 tablet, Refills 2, Tot. Refills 2, Maintenance, 08/10/21 14:27:00 EST, Route to Pharmacy Electronically, [facility], Partial fill upon patient request if the prescription is for a schedule... Start Date: 08/10/21 Status: Ordered Jardiance 10 mg oral tablet 1 tablet, By Mouth, Daily in AM, # 30 tablet, 2 Refills, 08/10/21 14:27:00 EST, [facility], 164, cm, 03/02/21 8:40:00 EDT, Height, 87.5, kg, 02/10/21 9:00:00 EDT, Dry Weight Start Date: 08/10/21 Status: Ordered Lantus Solostar Pen 100 units/mL subcutaneous solution = 15 units, Subcutaneous Injection, Daily at bedtime, # 9 mL, 2 Refills, Maintenance, 05/07/20 13:08:00 EDT, Injection, [facility], 163, cm, 04/21/20 22:04:00 EDT, Height, 91, kg, 04/19/20 23:16:00 EDT, Dry Weight Start Date: 05/07/20 Stop Date: 08/05/20 Status: Ordered Lantus Solostar Pen 100 units/mL subcutaneous solution See Instructions, INJECT 15 UNITS SUBCUTANEOUSLY DAILY AT BEDTIME, # 15 mL, 2 Refills, 08/10/21 14:27:00 EST, [facility], 164, cm, 03/02/21 8:40:00 EDT, Height, 87.5, kg, 02/10/21 9:00:00 EDT, Dry Weight Start Date: 08/10/21 Status: Ordered Lipitor 80 mg oral tablet 1 tablet = 80 mg, By Mouth, Daily at bedtime, # 30 tablet, 1 Refills, Maintenance, 08/10/21 14:27:00 EST, Tablet, [facility], Partial fill upon patient request, 164, cm, 03/02/21 8:40:00 EDT, Height, 87.5, kg, 02/10/21 9:00:00 EDT, Dry... Start Date: 08/10/21 Stop Date: 02/06/22 Status: Ordered lisinopril 10 mg oral tablet 1, tablet, By Mouth, Daily, # 30 each, Refills 1, Tot. Refills 1, 08/10/21 14:27:00 EST, Route to Pharmacy Electronically, [facility], 164, cm, 03/02/21 8:40:00 EDT, Height, 87.5, [...] Mouth, Daily, # 90 tablet, 3 Refills, [facility], 164, cm, 03/02/21 8:40:00 EDT,Height, [...] 91kg, 08/26/20 16:56:00 EST, [facility] to [facility]... Start Date: 08/26/20 Status: Ordered shower bars [...] 08/26/21 13:58:00 EST, Route to Pharmacy Electronically, [facility], Partial fill upon patient request if the prescription is for a schedule II opi... Start Date: 08/26/21 Status: Ordered traZODone 50 mg oral tablet 1, tablet, By Mouth, Daily at bedtime, PRN, # 30 tablet, Refills 2, Tot. Refills 2, Maintenance, ASNEEDED FOR SLEEP, 08/10/21 14:27:00 EST, Route to Pharmacy Electronically, [facility], 164, cm, 03/02/21 8:40:00 EDT, Height, 87.5, [...] BHN-BHCP C are Management Bre Skinner, CC [phone](Confirmed) 02/02/19 Active Thrombocytopenia(Confirmed) Active T2DM (type 2 diabetes mellitus)(Confirmed) Active Social History Social History Type Response Smoking Status Never (less than 100 in lifetime) entered on: 06/19/19 Sex
--- OUTSIDE RECORDS SUMMARY | 2023-12-10 00:44 | XMS_ITS | Continuity of Care Document ---
Author Organization [facility] Address [address] [place] [address]- Care Team Providers Care Pattern Puncher Name Role Phone Claire Trujillo MD Primary Care Physician [place] [facility] Date(s): 02/23/23 - 03/25/23 [facility] [address] [place], [place] [address] Attending Physician: Uche Urena Admitting Physician: Uche Urena Referring Physician: AdmtrUche Allergies, Adverse Reactions, Alerts Substance Reaction Severity Status metFORMIN 1 GI symptoms Active 1GI intolreance Immunizations Given and Recorded Vaccine Date Status Refusal Reason SARS-CoV-2 mRNA (spohagz-gujt-tbxtc) vax 03/03/22 Given SARS-CoV-2 mRNA (rqxdftn-mysz-qvmvm) vax 08/27/21 Given SARS-CoV-2 (COVID-19) mRNA BNT-162b2 [...] 0 Refills, Maintenance, 11/27/22 11:10:00 EDT, [facility]otion[facility] fill upon patient request if the prescri... Start Date: 11/27/22 Status: Ordered aspirin 81 mg oral delayed release tablet 81 mg, 1, tablet, By Mouth, Daily, blood thinner/ hace la leonard mas cullen - para proteger el paty/ arterias tapadas en el paty, # 30 tablet, Refills 11, Tot. Refills 11, Maintenance, 05/04/22 10:23:00 EDT, Route to Pharmacy Electronically, [facility]... Start Date: 05/04/22 Status: Ordered bed [...] Moderate, Apply to legs for diabetic neuropathy. Macedonian sig, # 60 Gm, 1 Refills, Maintenance, 06/06/22 9:44:00 EST, Cream, [facility], Partial fill upon patient request if the [...] 01/04/23 15:22:00 EDT, Route to Pharmacy Electronically, [facility], Partial fill upon patient request if the pre... Start Date: 01/04/23 Stop Date: 03/05/23 Status: Ordered Flomax 0.4 mg oral capsule 0.8 mg, 2, capsule, By Mouth, Daily, # 180 capsule, Refills 0, Tot. Refills 0, Maintenance, 10/16/22 13:34:00 EDT, Route to Pharmacy Electronically, [facility], Partial fill upon patient request if the [...] E10.42 duration: 99 weeks. Fax to [facility], 05/11/21 11:23:00 EDT, Supply Start Date: 05/11/21 Status: Ordered Home blood pressure monitor Home blood pressure monitor, See Instructions, # 1 each, Refills 0, Tot. Refills 0, Maintenance, ICD 10 I95.1; E11. 43 ALEIDA: [facility] 05/25[facility]22 12:53:00 EST, Supply Start Date: 05/25/22 Status: Ordered HumaLOG KwikPen 100 units/mL injectable solution See Instructions, Mealtime insulin; dose according to finger stick before meals FS 100-199: 5 unitsFS: 200-249: 6 units FS 250-299: 7 units FS above 300: 8 units, # 15 mL, 11 Refills, 06/01/22 10:46:00 EST, [facility]., 165, cm... Start Date: 06/01/22 Status: Ordered Jardiance 25 mg oral tablet 1 tablet = 25 mg, By Mouth, Daily in AM, # 30 tablet, 5 Refills, Maintenance, 11/08/22 15:44:00 EDT, [facility]., Partial fill upon patient request if the prescription is for a schedule II opioid drug., 165, cm, 09/04/22 13:02:00 EST, H... Start Date: 11/08/22 Stop Date: 05/07/23 Status: Ordered Lantus Solostar Pen 100 units/mL subcutaneous solution = 23 units, Subcutaneous Injection, Daily at bedtime, Insulina de 24 horas., # 15 mL, 11 Refills, Maintenance, 01/02/23 13:26:00 EDT, [facility] increase in dose, 165, cm,01/02/23 13:02:00 EDT, Height, 84.2, kg, 05/21/22 0... Start Date: 01/02/23 Stop Date: 12/28/23 Status: Ordered Lipitor 80 mg oral tablet 1 tablet = 80 mg, By Mouth, Daily at bedtime, para colesterol / proteger el paty/ arterias tapadas en el paty, # 30 tablet, 11 Refills, Maintenance, 05/04/22 10:23:00 EDT, Tablet, [facility], Partial fill upon patient request, 16... Start [...] 05/04/22 10:27:00 EDT, Route to Pharmacy Electronically, [facility]... Start Date: 05/04/22 Status: Ordered nortriptyline [...] 03/09/23 8:32:00 EDT, [facility] Partial fill upon patient re... Start [...] weight: 93kg, 11/21/21 16:40:00 EDT, sent to [facility]. Start Date: 11/21/21 Status: Ordered shower bars [...] Care Nurse Name: Ya Collier RN Position: [facility] RN Member Role: Primary Care Nurse Name: Valentina Leiva RN Position: [facility] SN RN Member Role: Primary Care Nurse Name: Macarena Bedolla Position: [facility] Outreach Member Role: Lifetime Consulting Physician Name: Abigail Nuno RN Position: [facility] Onco RN Member Role: Primary Care Nurse Name: Claire Trujillo MD Position: [facility] Physician - Primary Care Member Role: PCP Address: Address: [address] [place] [id number] Name: Heidi Dao Position: [facility] RN Member Role: Primary Care Nurse Care Team Related Persons Name: JOEL BRIZUELA Address: home [address] [place] [id number]
--- OUTSIDE RECORDS SUMMARY | 2023-12-10 00:44 | XMS_ITS | Continuity of Care Document ---
Author Organization [facility] Address [address] [place] [address]- Care Team Providers Care Cardiopulmonary Technician And Eeg Tech Name Role Phone Claire Trujillo MD Primary Care Physician Encounter [facility] Date(s): 07/18/21 - 08/17/[address] [address]- Allergies, Adverse Reactions, Alerts Substance Reaction Severity [...] E11.9 duration: 52 weeks, 08/10/21 14:27:00 EST, [facility], 164, cm, 03/02/21 8:40:00 EDT, [...] tablet, 1 Refills, Maintenance, 08/10/21 14:27:00 EST, [facility], 164, cm, 03/02/21 8:40:00 EDT, Height, [...] 60 tablet, 5 Refills, 08/10/21 14:27:00 EST, [facility] [address] 30, 1 tablet By Mouth 2 times a day, 164, cm, 03/02/21 8:40:00 EDT, Height, 87.5, kg, 02/10/21 9:00:00 EDT, Dry Weight Start Date: 08/10/21 Status: Ordered Diabetic Shoes with Inserts Diabetic Shoes with Inserts, See Instructions, # 2 each, Refills 0, Tot. Refills 0, Maintenance, Wear for diabetic foot care. Diagnosis: Type II DM, ICD10 E11.65. Fax to [facility], 10/28/20 14:47:00 EDT, Supply Start [...] PLUS 1 MORE TIME NEEDED FOR SYMPTOMS, [facility] Start Date: 04/21/19 Status: Ordered FREESTYLE LANCETS 100CT See Instructions, # 100 each, Refills 11 Tot. Refills 11, USE [facility] FOR TYPE [facility]ABETES[facility]: 03/18/19 Status: Ordered [...] Maintenance, 08/10/2213:27:00 EST, Route to Pharmacy Electronically, [facility], 164, cm, 03/02/21 8:40:00 EDT, Height, 87.5, kg, 02/10/21 9:00:00 EDT, Dry... Start Date: 08/10/21 Status: Ordered Hand Held Shower Head Hand Held Shower Head, See Instructions, # 1 each, Refills 0, Tot. Refills 0, Maintenance, diagnosis: diabetic neuropathy, T1DM. ICD10: E10.42 duration: 99 weeks. Fax to [facility] ([facility]), 05/11/21 11:23:00 EDT, Supply Start Date: 05/11/21 Status: Ordered isosorbide mononitrate 60 mg oral tablet, extended release 60 mg, 1, tablet, By Mouth, Daily in AM, # 30 tablet, Refills 2, Tot. Refills 2, Maintenance, 08/10/21 14:27:00 EST, Route to Pharmacy Electronically, [facility], Partial fill upon patient request if the prescription is for a schedule... Start Date: 08/10/21 Status: Ordered Jardiance 10 mg oral tablet 1 tablet, By Mouth, Daily in AM, # 30 tablet, 2 Refills, 08/10/21 14:27:00 EST, [facility], 164, cm, 03/02/21 8:40:00 EDT, Height, 87.5, kg, 02/10/21 9:00:00 EDT, Dry Weight Start Date: 08/10/21 Status: Ordered Lantus Solostar Pen 100 units/mL subcutaneous solution = 15 units, Subcutaneous Injection, Daily at bedtime, # 9 mL, 2 Refills, Maintenance, 05/07/20 13:08:00 EDT, Injection, [facility], 163, cm, 04/21/20 22:04:00 EDT, Height, 91, kg, 04/19/20 23:16:00 EDT, Dry Weight Start Date: 05/07/20 Stop Date: 08/05/20 Status: Ordered Lantus Solostar Pen 100 units/mL subcutaneous solution See Instructions, INJECT 15 UNITS SUBCUTANEOUSLY DAILY AT BEDTIME, # 15 mL, 2 Refills, 08/10/21 14:27:00 EST, [facility], 164, cm, 03/02/21 8:40:00 EDT, Height, 87.5, kg, 02/10/21 9:00:00 EDT, Dry Weight Start Date: 08/10/21 Status: Ordered Lipitor 80 mg oral tablet 1 tablet = 80 mg, By Mouth, Daily at bedtime, # 30 tablet, 1 Refills, Maintenance, 08/10/21 14:27:00 EST, Tablet, [facility], Partial fill upon patient request, 164, cm, 03/02/21 8:40:00 EDT, Height, 87.5, kg, 02/10/21 9:00:00 EDT, Dry... Start Date: 08/10/21 Stop Date: 02/06/22 Status: Ordered lisinopril 10 mg oral tablet 1, tablet, By Mouth, Daily, # 30 each, Refills 1, Tot. Refills 1, 08/10/21 14:27:00 EST, Route to Pharmacy Electronically, [facility] 164, cm, 03/02/21 8:40:00 EDT, Height, 87.5, [...] 91kg, 08/26/20 16:56:00 EST, sent to [facility]... Start Date: 08/26/20 Status: Ordered shower bars [...] mg, 1.5, tablet, By Mouth, Daily, # 30 each, Refills 3, Tot. Refills 3, Maintenance, 08/10/21 14:27:00 EST, Route to Pharmacy Electronically, [facility], Partial fill upon patient request if the prescription is for a schedule II opi... Start Date: 08/10/21 Status: Ordered traZODone 50 mg oral tablet 1, tablet, By Mouth, Daily at bedtime, PRN, # 30 tablet, Refills 2, Tot. Refills 2, Maintenance, ASNEEDED FOR SLEEP, 08/10/21 14:27:00 EST, Route to Pharmacy Electronically, [facility], 164, cm, 03/02/21 8:40:00 EDT, Height, [...] BHN-CP C are Management Bre Skinner, CC [phone](Confirmed) 02/02/19 Active Thrombocytopenia(Confirmed) Active T2DM (type 2 diabetes mellitus)(Confirmed) Active Social History Social History Type Response Smoking Status Never (less than 100 in lifetime) entered on: 06/19/19 Sex
--- OUTSIDE RECORDS SUMMARY | 2023-12-10 00:45 | XMS_ITS | Continuity of Care Document ---
Author Organization [facility] Address [address] [place] [address]- Care Team Providers Care Rock Star Name Role Phone Claire Trujillo MD Primary Care Physician Encounter [facility] Date(s): 11/15/21 - 12/15/[address] [address]- Allergies, Adverse Reactions, Alerts Substance Reaction Severity Status metFORMIN 1 GI symptoms Active 1GI intolreance Immunizations Given and Recorded Vaccine Date Status Refusal Reason SARS-CoV-2 mRNA (ekugxzm-bulu-xyxlm) vax 08/27/21 Given SARS-CoV-2 (COVID-19) mRNA BNT-162b2 [...] tablet, 1 Refills, Maintenance, 10/17/21 10:37:00 EDT[facility], cm, 03/02/21 8:40:00 EDT, Height, [...] 60 tablet, 5 Refills, 08/10/21 14:27:00 EST, [facility] 30, 1 tablet By Mouth 2 times a day, 164, cm, 03/02/21 8:40:00 EDT, Height, 87.5, kg, 02/10/21 9:00:00 EDT, Dry Weight Start Date: 08/10/21 Status: Ordered Diabetic Shoes with Inserts Diabetic Shoes with Inserts, See Instructions, # 2 each, Refills 0, Tot. Refills 0, Maintenance, Wear for diabetic foot care. Diagnosis: Type II DM, ICD10 E11.65. Fax to [facility], 10/28/20 14:47:00 EDT, Supply Start Date: [...] PLUS 1 MORE TIME NEEDED FOR SYMPTOMS, [facility] Start Date: 04/21/19 Status: Ordered FREESTYLE LANCETS 100CT See Instructions, # 100 each, Refills 11 Tot. Refills 11, USE DIRECTED FOR TYPE 1 DIABETES, [facility] Start Date: 03/18/19 Status: Ordered Freestyle [...] capsule, Refills 2, Route to Pharmacy Electronically, [facility], 164, cm, 03/02/21 8:40:00 EDT, Height, 87.5, kg, 02/10/21 9:00:00 EDT, Dry Weight Start Date: 11/14/21 Status: Ordered Hand Held Shower Head Hand Held Shower Head, See Instructions, # 1 each, Refills 0, Tot. Refills 0, Maintenance, diagnosis: diabetic neuropathy, T1DM. ICD10: E10.42 duration: 99 weeks. Fax to [facility] ([facility]), 05/11/21 11:23:00 EDT, Supply Start Date: 05/11/21 Status: Ordered isosorbide mononitrate 60 mg oral tablet, extended release 60 mg, 1, tablet, By Mouth, Daily in AM, # 30 tablet, Refills 5, Tot. Refills 5, Maintenance, 11/14/21 12:33:00 EDT, Route to Pharmacy Electronically, [facility], Partial fill upon patient request if the prescription is for a schedule... Start Date: 11/14/21 Status: Ordered Jardiance 10 mg oral tablet 1 tablet, By Mouth, Daily in AM, # 30 tablet, 2 Refills, 11/14/21 12:32:00 EDT, [facility], 164, cm, 03/02/21 8:40:00 EDT, Height, 87.5, kg, 02/10/21 9:00:00 EDT, Dry Weight Start Date: 11/14/21 Status: Ordered Lantus Solostar Pen 100 units/mL subcutaneous solution = 15 units, Subcutaneous Injection, Daily at bedtime, # 9 mL, 2 Refills, Maintenance, 05/07/20 13:08:00 EDT, Injection, [facility] 163, cm, 04/21/20 22:04:00 EDT, Height, 91, kg, 04/19/20 23:16:00 EDT, Dry Weight Start Date: 05/07/20 Stop Date: 08/05/20 Status: Ordered Lantus Solostar Pen 100 units/mL subcutaneous solution See Instructions, INJECT 15 UNITS SUBCUTANEOUSLY DAILY AT BEDTIME, # 15 mL, 2 Refills, 08/10/21 14:27:00 EST, [facility], 164, cm, 03/02/21 8:40:00 EDT, Height, 87.5, kg, 02/10/21 9:00:00 EDT, Dry Weight Start Date: 08/10/21 Status: Ordered Lipitor 80 mg oral tablet 1 tablet = 80 mg, By Mouth, Daily at bedtime, # 30 tablet, 5 Refills, Maintenance, 10/17/21 10:36:00 EDT, Tablet, [facility], Partial fill upon patient request, 164, cm, 03/02/21 8:40:00 EDT, Height, 87.5, kg, 02/10/21 9:00:00 EDT, Dry... Start Date: 10/17/21 Status: Ordered lisinopril 10 mg oral tablet 1, tablet, By Mouth, Daily, # 30 each, Refills 5, Tot. Refills 5, 10/17/21 10:36:00 EDT, Route to Pharmacy Electronically, [facility], 164, cm, 03/02/21 8:40:00 EDT, Height, 87.5, [...] Mouth, Daily, # 90 tablet, 3 Refills, [facility] 164, cm, 03/02/21 8:40:00 EDT,Height, 87.5, kg, [...] weight: 91kg, 08/26/20 16:56:00 EST, sent to [facility]. Start Date: 08/26/20 Status: Ordered rollator walker w/ 4 wheels, seat and brakes rollator walker w/ 4 wheels, seat and brakes, See Instructions, # 1 each, Refills 0, Tot. Refills 0, Maintenance, dx: diabetes with neuropathy ICD10: E11.40 duration: 99 weeks height: 164cm weight: 93kg, 11/21/21 16:40:00 EDT, sent to [facility] Start Date: 11/21/21 Status: Ordered shower [...] 08/26/21 13:58:00 EST, Route to Pharmacy Electronically, [facility], Partial fill upon patient request if the prescription is for a schedule II opi... Start Date: 08/26/21 Status: Ordered traZODone 50 mg oral tablet 1, tablet, By Mouth, Daily at bedtime, PRN, # 30 tablet, Refills 5, Tot. Refills 5, Maintenance, ASNEEDED FOR SLEEP, 11/14/21 12:34:00 EDT, Route to Pharmacy Electronically, [facility], 164, cm, 03/02/21 8:40:00 EDT, [...] BHN-BHCP C are Management Bre Skinner, CC [phone](Confirmed) 02/02/19 Active Thrombocytopenia(Confirmed) Active T2DM (type 2 diabetes mellitus)(Confirmed) Active Social History Social History Type Response Smoking Status Never (less than 100 in lifetime) entered on: 06/19/19 Sex
--- OUTSIDE RECORDS SUMMARY | 2023-12-10 00:45 | XMS_ITS | Continuity of Care Document ---
Author Organization [facility] Address [address] [place] [address]- Care Team Providers Care Banana Grader Name Role Phone Claire Trujillo MD Primary Care Physician [place] [facility] [place] - 11/30/[address] [address]- Allergies, Adverse Reactions, Alerts Substance Reaction Severity Status metFORMIN 1 GI symptoms Active 1GI intolreance Immunizations Given and Recorded Vaccine Date Status Refusal Reason SARS-CoV-2 mRNA (yawspom-ovjt-ukvyc) vax 03/03/22 Given SARS-CoV-2 mRNA (ahoelmy-wavf-wezct) vax 08/27/21 Given SARS-CoV-2 (COVID-19) mRNA BNT-162b2 [...] 11/27/22 11:10:00 EDT, [facility] upon patient request if [...] Moderate, Apply to legs for diabetic neuropathy. Maori sig, # 60 Gm, 1 Refills, Maintenance, 06/06/22 9:44:00 EST, Cream, [facility], Partial fill upon patient request if [...] 10/16/22 13:34:00 EDT, Route to Pharmacy Electronically, [facility], Partial fill upon patient request if [...] E10.42 duration: 99 weeks. Fax to Cheryl ([facility]), 05/11/21 11:23:00 EDT, Supply Start Date: 05/11/21 Status: Ordered Home blood pressure monitor Home blood pressure monitor, See Instructions, # 1 each, Refills 0, Tot. Refills 0, Maintenance, ICD 10 I95.1; E11. 43 ALEIDA: 99 Bring rx to [facility], 05/25/22 12:53:00 EST, Supply Start Date: 05/25/22 Status: Ordered HumaLOG KwikPen 100 units/mL injectable solution See Instructions, Mealtime insulin; dose according to finger stick before meals FS 100-199: 5 unitsFS: 200-249: 6 units FS 250-299: 7 units FS above 300: 8 units, # 15 mL, 11 Refills, 06/01/22 10:46:00 EST, [facility]., 165, cm... Start Date: 06/01/22 Status: Ordered Jardiance 25 mg oral tablet 1 tablet = 25 mg, By Mouth, Daily in AM, # 30 tablet, 5 Refills, Maintenance, 11/08/22 15:44:00 EDT, [facility], Partial fill upon patient request if the prescription is for a schedule II opioid drug., 165, cm, 09/04/22 13:02:00 EST, H... Start Date: 11/08/22 Stop Date: 05/07/23 Status: Ordered Lantus Solostar Pen 100 units/mL subcutaneous solution = 18 units, Subcutaneous Injection, Daily at bedtime, Insulina de 24 horas., # 15 mL, 11 Refills, Maintenance, 09/13/22 12:18:00 EST, Injection, [facility]., 165, cm, 09/04/22 13:02:00EST, Height, 84.2, kg, 05/21/22 0:51:00 EDT, Dry We... Start Date: 09/13/22 Stop Date: 09/08/23 Status: Ordered Lipitor 80 mg oral tablet 1 tablet = 80 mg, By Mouth, Daily at bedtime, para colesterol / proteger el paty/ arterias tapadas en el paty, # 30 tablet, 11 Refills, Maintenance, 05/04/22 10:23:00 EDT, Tablet, [facility], Partial fill upon patient request, 16... [...] 05/04/22 10:27:00 EDT, Route to Pharmacy Electronically, [facility]... Start Date: 05/04/22 Status: Ordered [...] EDT, Supply Start Date: 11/23/22 Status: Ordered raised toilet seat raised toilet [...] 93kg, 11/21/21 16:40:00 [facility] Start Date: 11/21/21 Status: Ordered shower bars [...] Team Personnel Name: Sorin Moser RN Position: [facility] RN Member Role: Primary Care Nurse Name: Brandi Wei RN Position: [facility] RN Member Role: Primary Care Nurse Name: Ya Collier RN Position: [facility] PCO RN Member Role: Primary Care Nurse Name: Valentina Leiva RN Position: [facility] SN RN Member Role: Primary Care Nurse Name: Macarena Bedolla Position: [facility] Outreach Member Role: Lifetime Consulting Physician Name: Abigail Nuno RN Position: [facility] Onco RN Member Role: Primary Care Nurse Name: Claire Trujillo MD Position: [facility] Primary Care Physician Member Role: PCP Address: Address: [address] [place] [id number] Name: Heidi Dao Position: [facility] RN Member Role: Primary Care Nurse Care Team Related Persons Name: JOEL BRIZUELA Address: [facility] [address] [place] [id number]
--- OUTSIDE RECORDS SUMMARY | 2023-12-10 00:45 | XMS_ITS | Continuity of Care Document ---
Author Organization [facility] Address [address] [place] [address]- Care Team Providers Care Metal Treater Name Role Phone Cassandra WHITE, Claire Primary Care Physician [phone] Encounter [facility] Date(s): 11/02/20 - 12/02/[address] [address]- Allergies, Adverse Reactions, Alerts Substance Reaction Severity [...] 1 Refills, Soft Stop, 06/30/20 18:54:00 EST, [facility], 163, cm, 04/21/20 22:04:00 EDT, Height, [...] 5 Refills, Maintenance, 08/18/20 16:04:00 EST, Tablet, [facility], 1 tablet By Mouth 2 times a day, 163, cm, 04/21/20 22:04:00 EDT, Height, 91, kg,04/19/20 23:16:00 EDT, Dry Weight Start Date: 08/18/20 Status: Ordered Diabetic Shoes with Inserts Diabetic Shoes with Inserts, See Instructions, # 2 each, Refills 0, Tot. Refills 0, Maintenance, Wear for diabetic foot care. Diagnosis: Type II DM, ICD10 E11.65. Fax to [facility], 10/28/20 14:47:00 EDT, Supply Start Date: 10/28/20 Status: Ordered FLUoxetine 20 mg oral capsule 1, capsule, By Mouth, Daily, # 90 capsule, Refills 3, Tot. Refills 3, Maintenance, 11/05/19 18:38:00 EDT, Route to Pharmacy Electronically, [facility], 165, cm, 07/21/19 14:31:00 EST, Height, 91,kg, 06/19/19 16:55:00 EST, Dry Weight Start Date: 11/05/19 Stop Date: 10/30/20 Status: Ordered FREESTYLE SHELLIE LITE See Instructions, # 100 each, Refills 10 Tot. Refills 10, USE TO CHECK BLOOD SUGARS 3 TIMES A DAY WITH MEALS PLUS 1 MORE TIME NEEDED FOR SYMPTOMS, [facility] Start Date: 04/21/19 Status: Ordered FREESTYLE [...] Maintenance, 08/18/2115:13:00 EST, Route to Pharmacy Electronically, [facility], 163, cm, 04/21/20 22:04:00 EDT, Height, 91, kg, 04/19/20 23:16:00 EDT, Dry Weight Start Date: 08/18/20 Status: Ordered Hand Held Shower Head Hand Held Shower Head, See Instructions, # 1 each, Refills 0, Tot. Refills 0, Maintenance, diagnosis: diabetic neuropathy, T1DM. ICD10: E10.42 duration: 99 weeks. Fax to Cheryl ([facility]), 10/28/20 14:53:00 [...] DAY, # 15 mL, 11 Refills, Maintenance, [facility], 16... Start Date: 10/25/20 Status: Ordered [...] weight: 91kg, 08/26/20 16:56:00 EST, sent to [facility] Start Date: 08/26/20 Status: Ordered shower bars [...] 08/04/20 14:13:00 EST, Route to Pharmacy Electronically, [facility], 163, cm, 04/21/20 22:04:00 EDT, Height, [...] BHN-BHCP C are Management Bre Skinner, CC [phone](Confirmed) 02/02/19 Active Thrombocytopenia(Confirmed) Active Type 1 diabetes mellitus(Confirmed) Active Social History Social History Type Response Smoking Status Never (less than 100 in lifetime) entered on: 06/19/19 Sex
--- OUTSIDE RECORDS SUMMARY | 2023-12-10 00:45 | XMS_ITS | Continuity of Care Document ---
Author Organization [facility] Address [address] [place] [address]- Care Team Providers Care Press Operator Heavy Duty Name Role Phone Claire Trujillo MD Primary Care Physician [phone] [place]counter [facility] [place] Date(s): 11/08/20 - 12/08/[address] [address] Allergies, Adverse Reactions, Alerts [...] 1 Refills, Soft Stop, 06/30/20 18:54:00 EST, [facility], 163, cm, 04/21/20 22:04:00 EDT, Height, [...] 5 Refills, Maintenance, 08/18/20 16:04:00 EST, Tablet, [facility], 1 tablet By Mouth 2 times a day, 163, cm, 04/21/20 22:04:00 EDT, Height, 91, kg,04/19/20 23:16:00 EDT, Dry Weight Start Date: 08/18/20 Status: Ordered Diabetic Shoes with Inserts Diabetic Shoes with Inserts, See Instructions, # 2 each, Refills 0, Tot. Refills 0, Maintenance, Wear for diabetic foot care. Diagnosis: Type II DM, ICD10 E11.65. Fax to [facility], 10/28/20 14:47:00 EDT, Supply Start Date: 10/28/20 Status: Ordered FLUoxetine 20 mg oral capsule 1, capsule, By Mouth, Daily, # 90 capsule, Refills 3, Tot. Refills 3, Maintenance, 11/05/19 18:38:00 EDT, Route to Pharmacy Electronically, [facility], 165, cm, 07/21/19 14:31:00 EST, Height, 91,kg, 06/19/19 16:55:00 EST, Dry Weight Start Date: 11/05/19 Stop Date: 10/30/20 Status: Ordered FREESTYLE SHELLIE LITE See Instructions, # 100 each, Refills 10 Tot. Refills 10, USE TO CHECK BLOOD SUGARS 3 TIMES A DAY WITH MEALS PLUS 1 MORE TIME NEEDED FOR SYMPTOMS, [facility] Start Date: 04/21/19 Status: Ordered FREESTYLE LANCETS 100CT See Instructions, # 100 each, Refills 11 Tot. Refills 11, USE DIRECTED FOR TYPE 1 DIABETES, KEVIN,[facility] Start Date: 03/18/19 Status: Ordered Freestyle [...] Maintenance, 08/18/2115:13:00 EST, Route to Pharmacy Electronically, [facility], 163, cm, 04/21/20 22:04:00 EDT, Height, 91, kg, 04/19/20 23:16:00 EDT, Dry Weight Start Date: 08/18/20 Status: Ordered Hand Held Shower Head Hand Held Shower Head, See Instructions, # 1 each, Refills 0, Tot. Refills 0, Maintenance, diagnosis: diabetic neuropathy, T1DM. ICD10: E10.42 duration: 99 weeks. Fax to Cheryl ([facility]), 10/28/20 14:53:00 EDT, Supply Start Date: 10/28/20 Status: Ordered HumaLOG KwikPen 100 units/mL injectable solution See Instructions, INJECT UNDER THE SKIN DIRECTED. FOUR UNITS IF BS OVER 120 ,6 UNITS IF BS AT 200 ,8 UNITS IF BS AT 300, 12 UNITS IF BS 400 THREE TIMES DAILY BEFORE MEALS. MAXIMUM 60 UNITS / DAY, # 15 mL, 11 Refills, Maintenance, [facility], 16... Start Date: 10/25/20 Status: Ordered [...] weight: 91kg, 08/26/20 16:56:00 EST, sent to [facility].. Start Date: 08/26/20 Status: Ordered shower bars [...] 08/04/20 14:13:00 EST, Route to Pharmacy Electronically, [facility], 163, cm, 04/21/20 22:04:00 EDT, Height, [...] BHN-BHCP C are Management Bre Skinner, CC [phone](Confirmed) 02/02/19 Active Thrombocytopenia(Confirmed) Active Type 1 diabetes mellitus(Confirmed) Active Social History Social History Type Response Smoking Status Never (less than 100 in lifetime) entered on: 06/19/19 Sex
--- OUTSIDE RECORDS SUMMARY | 2023-12-10 00:45 | XMS_ITS | Continuity of Care Document ---
Author Organization [facility] Address [address] [place] [address]- Care Team Providers Care Cage Clerk Name Role Phone Claire Trujillo MD Primary Care Physician Encounter [facility] [place] Date(s): 09/04/22 - 10/04/[address] [address]- Allergies, Adverse Reactions, Alerts Substance Reaction Severity Status metFORMIN 1 GI symptoms Active 1GI intolreance Immunizations Given and Recorded Vaccine Date Status Refusal Reason SARS-CoV-2 mRNA (lqoucuc-xdbz-oxnkq) vax 03/03/22 Given SARS-CoV-2 mRNA (pktueic-tpec-jjhsw) vax 08/27/21 Given SARS-CoV-2 (COVID-19) mRNA BNT-162b2 [...] 05/04/22 10:23:00 EDT, Route to Pharmacy Electronically, [facility]... Start Date: 05/04/22 Status: Ordered [...] Moderate, Apply to legs for diabetic neuropathy. Sudanese sig, # 60 Gm, 1 Refills, Maintenance, 06/06/22 9:44:00 EST, Cream, [facility], Partial fill upon patient request if [...] 09/04/22 13:08:00 EST, Route to Pharmacy Electronically, [facility], Partial fill upon patient request if [...] E10.42 duration: 99 weeks. [address] to [facility], 05/11/21 11:23:00 EDT, Supply Start Date: [...] 15 mL, 11 Refills, 06/01/22 10:46:00 EST, [facility]., 165, cm... Start Date: 06/01/22 Status: Ordered Jardiance 25 mg oral tablet 1 tablet = 25 mg, By Mouth, Daily in AM, # 30 tablet, 5 Refills, Maintenance, 06/01/22 10:45:00 EST, [facility], Partial fill upon patient request if the prescription is for a schedule II opioid drug., 165, cm, 06/01/22 10:18:00 EST, H... Start Date: 06/01/22 Stop Date: 11/28/22 Status: Ordered Lantus Solostar Pen 100 units/mL subcutaneous solution = 18 units, Subcutaneous Injection, Daily at bedtime, Insulina de 24 horas., # 15 mL, 11 Refills, Maintenance, 09/13/22 12:18:00 EST, [facility] 165, cm, 09/04/22 13:02:00EST, Height, 84.2, kg, 05/21/22 0:51:00 EDT, Dry We... Start Date: 09/13/22 Stop Date: 09/08/23 Status: Ordered Lipitor 80 mg oral tablet 1 tablet = 80 mg, By Mouth, Daily at bedtime, para colesterol / proteger el paty/ arterias tapadas en el paty, # 30 tablet, 11 Refills, Maintenance, 05/04/22 10:23:00 EDT, Tablet, [facility], Partial fill upon patient request, 16... [...] 05/04/22 10:27:00 EDT, Route to Pharmacy Electronically, [facility]... Start Date: 05/04/22 Status: Ordered [...] Type II DM, ICD10 E11.65. Fax to [address] [place] [address]., 09/13/22 12:18:00 EST, Supply Start Date: 09/13/22 [...] weight: 93kg, 11/21/21 16:40:00 EDT, sent to [facility]. Start Date: 11/21/21 Status: Ordered shower [...] coordination N-CP Care Management Bre Skinner, CC [phone] Confirmed 02/02/19 Active Thrombocytopenia Confirmed Active TIA (transient ischemic attack) Confirmed Active T2DM (type 2 diabetes mellitus) Confirmed Active Social History Social History Type Response Smoking Status Never (less than 100 in lifetime) entered on: 06/19/19 Sex Patient Care team information Care Team Personnel Name: Sorin Moser RN Position: [facility] RN Member Role: Primary Care Nurse Name: Brandi Wei RN Position: [facility] RN Member Role: Primary Care Nurse Name: Ya Collier RN Position: [facility] PCO RN Member Role: Primary Care Nurse Name: Valentina Leiva RN Position: [facility] SN RN Member Role: Primary Care Nurse Name: Macarena Bedolla Position: [facility] Outreach Member Role: Lifetime Consulting Physician Name: Abigail Nuno RN Position: [facility] Onco RN Member Role: Primary Care Nurse Name: Claire Trujillo MD Position: [facility] Primary Care Physician Member Role: PCP Address: Address: [address] [place] [id number]- Name: Heidi Dao Position: [facility] RN Member Role: Primary Care Nurse Care Team Related Persons Name: JOEL BRIZUELA Address: home [address] [place] [id number]
--- OUTSIDE RECORDS SUMMARY | 2023-12-10 00:45 | XMS_ITS | Continuity of Care Document ---
Author Organization [facility] Address [address] [place] [address]- Care Team Providers Care Otolaryngologist Name Role Phone Claire Trujillo MD Primary Care Physician Encounter [facility] [place] Date(s): 06/29/23 - 07/29/[address] [address]- Allergies, Adverse Reactions, Alerts Substance Reaction Severity Status metFORMIN 1 GI symptoms Active 1GI intolreance Immunizations Given and Recorded Vaccine Date Status Refusal Reason SARS-CoV-2 mRNA (itpcnmr-vvmf-dlvvc) vax 03/03/22 Given SARS-CoV-2 mRNA (zstjyzm-hbgv-mdhza) vax 08/27/21 Given SARS-CoV-2 (COVID-19) mRNA BNT-162b2 [...] 0 Refills, Maintenance, 11/27/22 11:10:00 EDT, [facility] fill upon patient request [...] 05/02/23 16:08:00 EDT, Route to Pharmacy Electronically, [facility], Partial fill upon patient request if the pr... Start Date: 05/02/23 Stop Date: 07/01/23 Status: Ordered Flomax 0.4 mg oral capsule 0.8 mg, 2, capsule, By Mouth, Daily, # 180 capsule, Refills 1, Tot. Refills 1, Maintenance, 07/19/23 13:01:00 EST, Route to Pharmacy Electronically, [facility]/pharmacy #[id number], Partial fill upon patient request if the [...] E10.42 duration: 99 weeks. Fax to Cheryl [facility], 05/11/21 11:23:00 EDT, Supply Start Date: 05/11/21 Status: Ordered Home blood pressure monitor Home blood pressure monitor, See Instructions, # 1 each, Refills 0, Tot. Refills 0, Maintenance, ICD 10 I95.1; E11. 43 ALEIDA: 99 [facility] 12:53:00 EST, Supply Start Date: 05/25/22 Status: Ordered HumaLOG KwikPen 100 units/mL injectable solution See Instructions, Mealtime insulin; dose according to finger stick before meals FS 100-199: 5 unitsFS: 200-249: 6 units FS 250-299: 7 units FS above 300: 8 units, # 15 mL, 1 Refills, 05/15/23 10:16:00 EDT, [facility], No [facility]ur... Start Date: 05/15/23 Status: Ordered isosorbide mononitrate 30 mg oral tablet, extended release 30 mg, 1, tablet, By Mouth, Daily at bedtime, Para el paty. Noelle antes de acostarse., # 30 tablet, Refills 3, Tot. Refills 3, Maintenance, 07/19/23 13:01:00 EST, Route to Pharmacy Electronically, [facility]/pharmacy #[id number], Partial fill upon patient reque... Start Date: 07/19/23 Stop Date: 11/16/23 Status: Ordered Jardiance 25 mg oral tablet 1 tablet = 25 mg, By Mouth, Daily in AM, # 30 tablet, 5 Refills, Maintenance, 07/19/23 13:00:00 EST, [facility]/pharmacy #[id number], Partial fill upon patient request if [...] 07/13/24 13:01:00 EST, 07/19/23 13:01:00 EST, Injection, [facility]/pharmacy #[id number], increase in dose, 165, cm, 04/16/23 8:59:00 EDT, Heig... Start Date: 07/19/23 Stop Date: 07/13/24 Status: Ordered Lantus Solostar Pen 100 units/mL subcutaneous solution = 23 units, Subcutaneous Injection, Daily at bedtime, Insulina de 24 horas., # 15 mL, 1 Refills, Maintenance, 04/26/24 16:08:00 EDT, Injection, [facility], No insurance (Medicare not active until 06/15). [...] 07/19/23 13:01:00 EST, Route to Pharmacy Electronically, [facility]/pharmacy #[id number],... Start Date: 07/19/23 Stop Date: 07/13/24 Status: Ordered morphine 15 mg/8 to 12 hr oral tablet, extended release 1 tablet = 15 mg, By Mouth, Every 12 hours, # 56 tablet, 0 Refills, Maintenance, 07/05/23 17:04:00 EST, ER Tablet, [facility]/pharmacy #[id number], Partial fill upon patient request if [...] Acute 08/02/23 17:05:00 EST, 07/05/23 17:05:00 EST, [facility]/pharmacy #[id number], Partial fill upon patient request ifthe [...] 93kg, 11/21/21 16:40:00 EDT, sent to [facility] Start Date: 11/21/21 Status: Ordered shower [...] Team Personnel Name: Sorin Moser RN Position: [facility] RN Member Role: Primary Care Nurse Name: Ya Wilson RN Position: [facility] RN Member Role: Primary Care Nurse Name: Brandi Wei RN Position: [facility] RN Member Role: Primary Care Nurse Name: Valentina Leiva RN Position: [facility] SN RN Member Role: Primary Care Nurse Name: Macarena Bedolla Position: [facility] Outreach Member Role: Lifetime Consulting Physician Name: Abigail Nuno RN Position: [facility] Onco RN Member Role: Primary Care Nurse Name: Claire Trujillo MD Position: [facility] Physician - Primary Care Member Role: PCP Address: Address: [address] [place] [address] Name: Heidi Dao Position: [facility] RN Member Role: Primary Care Nurse Care Team Related Persons Name: JOEL BRIZUELA Address: home [address] [place] [address], [place] [address]
--- OUTSIDE RECORDS SUMMARY | 2023-12-10 00:45 | XMS_ITS | Continuity of Care Document ---
Author Organization [facility] Address [address] [place] [address]- Care Team Providers Care Sinter Machine Operator Name Role Phone Claire Trujillo MD Primary Care Physician Encounter [facility] Date(s): 11/27/22 - 04/13/23 [facility] [address], [place] [address] Attending Physician: Aundrea Em MD Admitting Physician: Aundrea Em MD Allergies, Adverse Reactions, Alerts Substance Reaction Severity Status metFORMIN 1 GI symptoms Active 1GI intolreance Immunizations Given and Recorded Vaccine Date Status Refusal Reason SARS-CoV-2 mRNA (xmmhixb-trrk-tnkoh) vax 03/03/22 Given SARS-CoV-2 mRNA (rpxokea-maaa-epajc) vax 08/27/21 Given SARS-CoV-2 (COVID-19) mRNA BNT-162b2 [...] 23-valent vaccine 01/11/17 Given pneumococcal 23-valent vaccine 11/7/02 Recorded tetanus-diphtheria toxoids (Td) 01/30/05 Recorded 1Early/Late [...] 0 Refills, Maintenance, 11/27/22 11:10:00 EDT, [facility] fill upon patient request if the prescri... Start Date: 11/27/22 Status: Ordered aspirin 81 mg oral delayed release tablet 81 mg, 1, tablet, By Mouth, Daily, blood thinner/ hace la leonard mas cullen - para proteger el paty/ arterias tapadas en el paty, # 90 tablet, Refills 3, Tot. Refills 3, Maintenance, 03/31/23 11:15:00 EDT, Route to Pharmacy Electronically, [facility]... Start Date: 03/31/23 Stop Date: 03/25/24 Status: [...] Moderate, Apply to legs for diabetic neuropathy. Finnish sig, # 60 Gm, 1 Refills, Maintenance, 06/06/22 9:44:00 EST, Cream, [facility], Partial fill upon patient request if [...] 01/04/23 15:22:00 EDT, Route to Pharmacy Electronically, [facility], Partial fill upon patient request if the pre... Start Date: 01/04/23 Stop Date: 03/05/23 Status: Ordered Flomax 0.4 mg oral capsule 0.8 mg, 2, capsule, By Mouth, Daily, # 180 capsule, Refills 1, Tot. Refills 1, Maintenance, 03/31/23 11:17:00 EDT, Route to Pharmacy Electronically, [facility], Partial fill upon patient request if [...] E10.42 duration: 99 weeks. Fax to Cheryl [facility], 05/11/21 11:23:00 EDT, Supply Start Date: 05/11/21 Status: Ordered Home blood pressure monitor Home blood pressure monitor, See Instructions, # 1 each, Refills 0, Tot. Refills 0, Maintenance, ICD 10 I95.1; E11. 43 ALEIDA: 99 [facility] 12:53:00 EST, Supply Start Date: 05/25/22 Status: Ordered HumaLOG KwikPen 100 units/mL injectable solution See Instructions, Mealtime insulin; dose according to finger stick before meals FS 100-199: 5 unitsFS: 200-249: 6 units FS 250-299: 7 units FS above 300: 8 units, # 15 mL, 11 Refills, 06/01/22 10:46:00 EST, [facility], cm... Start Date: 06/01/22 Status: Ordered isosorbide mononitrate 30 mg oral tablet, extended release 30 mg, 1, tablet, By Mouth, Daily at bedtime, Para el paty. Noelle antes de acostarse., # 30 tablet, Refills 3, Tot. Refills 3, Maintenance, 03/31/23 11:17:00 EDT, Route to Pharmacy Electronically, [facility], Partial fill upon patie... Start Date: 03/31/23 Stop Date: 07/29/23 Status: Ordered Jardiance 25 mg oral tablet 1 tablet = 25 mg, By Mouth, Daily in AM, # 30 tablet, 5 Refills, Maintenance, 11/08/22 15:44:00 EDT, [facility], Partial fill upon patient request if the prescription is for a schedule II opioid drug., 165, cm, 09/04/22 13:02:00 EST, H... Start Date: 11/08/22 Stop Date: 05/07/23 Status: Ordered Lantus Solostar Pen 100 units/mL subcutaneous solution = 23 units, Subcutaneous Injection, Daily at bedtime, Insulina de 24 horas., # 15 mL, 11 Refills, Maintenance, 01/02/23 13:26:00 EDT, Injection, [facility], increase in dose, 165, cm,01/02/23 13:02:00 EDT, Height, 84.2, kg, 05/21/22 0... Start Date: 01/02/23 Stop Date: 12/28/23 Status: Ordered Lipitor 80 mg oral tablet 1 tablet = 80 mg, By Mouth, Daily at bedtime, para colesterol / proteger el paty/ arterias tapadas en el paty, # 90 tablet, 3 Refills, Maintenance, 03/31/23 11:15:00 EDT, Tablet, [facility], Partial fill upon patient request, 165... [...] 03/31/23 11:15:00 EDT, Route to Pharmacy Electronically, [facility]... Start Date: 03/31/23 Stop Date: 03/25/24 Status: [...] 04/09/23 12:49:00 EDT, Route to Pharmacy Electronically, [facility], Partial fill upon patient... Start Date: [...] Team Personnel Name: Sorin Moser RN Position: [facility] RN Member Role: Primary Care Nurse Name: Brandi Wei RN Position: [facility] RN Member Role: Primary Care Nurse Name: Ya Collier RN Position: [facility] RN Member Role: Primary Care Nurse Name: Valentina Leiva RN Position: [facility] SN RN Member Role: Primary Care Nurse Name: Macarena Bedolla Position: [facility] Outreach Member Role: Lifetime Consulting Physician Name: Abigail Nuno RN Position: [facility] Onco RN Member Role: Primary Care Nurse Name: Claire Trujillo MD Position: [facility] Physician - Primary Care Member Role: PCP Address: Address: [address] [place] [address]- Name: Heidi Dao Position: [facility] RN Member Role: Primary Care Nurse Care Team Related Persons Name: JOEL BRIZUELA Address: [address] [address]
--- OUTSIDE RECORDS SUMMARY | 2023-12-10 00:45 | XMS_ITS | Continuity of Care Document ---
Author Organization [facility] Address [address] [place] [address]- Care Team Providers Care Bottom Saw Operator Name Role Phone Claire Trujillo MD Primary Care Physician Encounter [facility] Date(s): 02/05/20 - 03/06/[address] [address]- [facility] Allergies, Adverse Reactions, Alerts Substance Reaction Severity [...] PLUS 1 MORE TIME NEEDED FOR SYMPTOMS, [facility] Start Date: 04/21/19 Status: Ordered FREESTYLE LANCETS 100CT See Instructions, # 100 each, Refills 11 Tot. Refills 11, USE DIRECTED FOR TYPE 1 DIABETES, KEVIN,[facility] Start Date: 03/18/19 Status: Ordered Freestyle [...] 07/28/19 15:59:00 EST, Route to Pharmacy Electronically, [facility], 165, cm, 07/21/19 14:31:00 EST, Height, 91, kg, 06/19/19 16:55:00 EST, Dry We... Start Date: 07/28/19 Stop Date: 07/22/20 Status: Ordered isosorbide mononitrate 30 mg oral tablet, extended release 1 tablet = 30 mg, By Mouth, Daily in AM, # 30 tablet, 11 Refills, Maintenance, 02/23/20 12:51:00 EDT, [facility], 165, cm, 01/12/20 16:41:00 EDT, Height, [...] 11/05/19 18:37:00 EDT, Route to Pharmacy Electronically, [facility], 165, cm, 07/21/19 14:31:00 EST, Height, [...] 02/03/20 10:00:00 EDT, Route to Pharmacy Electronically, [facility], 165, cm, 01/12/20 16:41:00 EDT, Height, [...] N-CP C are Management Bre Skinner, CC [phone](Confirmed) 02/02/19 Active Thrombocytopenia(Confirmed) Active Type 1 diabetes mellitus(Confirmed) Active Social History Social History Type Response Smoking Status Never (less than 100 in lifetime) entered on: 06/19/19 Sex
--- OUTSIDE RECORDS SUMMARY | 2023-12-10 00:45 | XMS_ITS | Continuity of Care Document ---
Author Organization [facility] Address [address] [place] [address]- Care Team Providers Care Obstetrics Technician Name Role Phone Claire Trujillo MD Primary Care Physician [facility] Date(s): 09/11/22 - 10/11/22 [facility] [address] [place] [address]- Attending Physician: AdmVictorino sheth8 Admitting Physician: Admtr, Ar8 Referring Physician: Admtr, Ar8 Allergies, Adverse Reactions, Alerts Substance Reaction Severity Status metFORMIN 1 GI symptoms Active 1GI intolreance Immunizations Given and Recorded Vaccine Date Status Refusal Reason SARS-CoV-2 mRNA (ummfnhv-xsvl-sbkov) vax 03/03/22 Given SARS-CoV-2 mRNA (lnhmdoj-dczp-ydomt) vax 08/27/21 Given SARS-CoV-2 (COVID-19) mRNA BNT-162b2 [...] 05/04/22 10:23:00 EDT, Route to Pharmacy Electronically, [facility]... Start Date: 05/04/22 Status: Ordered bed [...] Moderate, Apply to legs for diabetic neuropathy. Brazilian sig, # 60 Gm, 1 Refills, Maintenance, 06/06/22 9:44:00 EST, Cream, [facility], Partial fill upon patient request if [...] 09/04/22 13:08:00 EST, Route to Pharmacy Electronically, [facility], Partial fill upon patient request if [...] E10.42 duration: 99 weeks. Fax to Cheryl [facility], 05/11/21 11:23:00 EDT, Supply Start Date: 05/11/21 Status: Ordered Home blood pressure monitor Home blood pressure monitor, See Instructions, # 1 each, Refills 0, Tot. Refills 0, Maintenance, ICD 10 I95.1; E11. 43 ALEIDA: 99 [facility] 12:53:00 EST, Supply Start Date: 05/25/22 Status: Ordered HumaLOG KwikPen 100 units/mL injectable solution See Instructions, Mealtime insulin; dose according to finger stick before meals FS 100-199: 5 unitsFS: 200-249: 6 units FS 250-299: 7 units FS above 300: 8 units, # 15 mL, 11 Refills, 06/01/22 10:46:00 EST, [facility]., 165, cm... Start Date: 06/01/22 Status: Ordered Jardiance 25 mg oral tablet 1 tablet = 25 mg, By Mouth, Daily in AM, # 30 tablet, 5 Refills, Maintenance, 06/01/22 10:45:00 EST, [facility], Partial fill upon patient request if the prescription is for a schedule II opioid drug., 165, cm, 06/01/22 10:18:00 EST, H... Start Date: 06/01/22 Stop Date: 11/28/22 Status: Ordered Lantus Solostar Pen 100 units/mL subcutaneous solution = 18 units, Subcutaneous Injection, Daily at bedtime, Insulina de 24 horas., # 15 mL, 11 Refills, Maintenance, 09/13/22 12:18:00 EST, [facility]jection, [facility] 165, cm, 09/04/22 13:02:00EST, Height, 84.2, kg, 05/21/22 0:51:00 EDT, Dry We... Start Date: 09/13/22 Stop Date: 09/08/23 Status: Ordered Lipitor 80 mg oral tablet 1 tablet = 80 mg, By Mouth, Daily at bedtime, para colesterol / proteger el paty/ arterias tapadas en el paty, # 30 tablet, 11 Refills, Maintenance, 05/04/22 10:23:00 EDT, Tablet, [facility], Partial fill upon patient request, 16... [...] 05/04/22 10:27:00 EDT, Route to Pharmacy Electronically, [facility]... Start Date: 05/04/22 Status: Ordered [...] II DM, ICD10 E11.65. Fax to [address] [place] [address]., 09/13/22 12:18:00 EST, Supply Start Date: 09/13/22 [...] 11/21/21 16:40:00 EDT, sent to [facility]. Start Date: 11/21/21 Status: Ordered shower bars [...] in recurrent falls Confirmed Active Care coordination [facility]-CP Care Management Bre Skinner, CC [phone] Confirmed 02/02/19 Active Thrombocytopenia Confirmed Active TIA (transient ischemic attack) Confirmed Active T2DM (type 2 diabetes mellitus) Confirmed Active Social History Social History Type Response Smoking Status Never (less than 100 in lifetime) entered on: 06/19/19 Sex Deprecated Cardiac rehabilitation treatment plan Progress note and attainment of goals (narrative) * Layton EPPERSON, Macarena Mike: PERFORM, SIGN, VERIFY Event Display: Cardiac Rehab Note Authored Date: [id number] Patient: SHERYL ROJO Age: 58 years Sex: Male : 1960 Associated Diagnoses: None Author: Macarena Traylor RN Dear Anna, Pamela patient sheryl Rojo was scheduled for a phase 2 Cardiac Rehab orientation today but did not show. Telephone message was left with patient via [employer] [facility] to reschedule when able. Thank You, Arlen Traylor RN, BSN Report sent to all consultants: Melvina TAVERAS, Anna Morrow. Patient Care team information Care Team Personnel Name: Sorin Moser RN Position: S RN Member Role: Primary Care Nurse Name: Brandi Wei RN Position: S RN Member Role: Primary Care Nurse Name: Ya Collier RN Position: [facility] PCO RN Member Role: Primary Care Nurse Name: Valentina Leiva RN Position: [facility] SN RN Member Role: Primary Care Nurse Name: Macarena Bedolla Position: [facility] Outreach Member Role: Lifetime Consulting Physician Name: Abigail Nuno RN Position: [facility] Onco RN Member Role: Primary Care Nurse Name: Claire Trujillo MD Position: [facility] Primary Care Physician Member Role: PCP Address: Address: [address] [place] [id number] Name: Heidi Dao Position: [facility] RN Member Role: Primary Care Nurse Care Team Related Persons Name: GELACIO JOEL Address: [facility] [address] [place] [address]
--- OUTSIDE RECORDS SUMMARY | 2023-12-10 00:45 | XMS_ITS | Continuity of Care Document ---
Author Organization [facility] Address [address] [place] [address]- Care Team Providers Care Browning Processor Name Role Phone Claire Trujillo MD Primary Care Physician [phone] Encounter [facility] R [id number] Date(s): 06/26/22 - 07/26/22 [facility] [address] [place] [address]- Attending Physician: Uche Urena Admitting Physician: AdmtrUche Referring Physician: Admtr, Ar8 Allergies, Adverse Reactions, Alerts Substance Reaction Severity Status metFORMIN 1 GI symptoms Active 1GI intolreance Immunizations Given and Recorded Vaccine Date Status Refusal Reason SARS-CoV-2 mRNA (gfnnmwi-gpwv-suzcb) vax 03/03/22 Given SARS-CoV-2 mRNA (ximciod-gsli-zbyfz) vax 08/27/21 Given SARS-CoV-2 (COVID-19) mRNA BNT-162b2 [...] 05/04/22 10:23:00 EDT, Route to Pharmacy Electronically, [facility]... Start Date: 05/04/22 Status: Ordered [...] Moderate, Apply to legs for diabetic neuropathy. Turkmen sig, # 60 Gm, 1 Refills, Maintenance, 06/06/22 9:44:00 EST, Cream, [facility], Partial fill upon patient request [...] E10.42 duration: 99 weeks. Fax to Cheryl [facility]), 05/11/21 11:23:00 EDT, Supply Start Date: 05/11/21 Status: Ordered Home blood pressure monitor Home blood pressure monitor, See Instructions, # 1 each, Refills 0, Tot. Refills 0, Maintenance, ICD 10 I95.1; E11. 43 ALEIDA: 99 [facility]22 12:53:00 EST, Supply Start Date: 05/25/22 Status: Ordered HumaLOG KwikPen 100 units/mL injectable solution See Instructions, Mealtime insulin; dose according to finger stick before meals FS 100-199: 5 unitsFS: 200-249: 6 units FS 250-299: 7 units FS above 300: 8 units, # 15 mL, 11 Refills, 06/01/22 10:46:00 EST, [facility]., 165, cm... Start Date: 06/01/22 [...] 11 Refills, Maintenance, 06/01/22 10:46:00 EST, Injection, [facility]., 165, cm, 06/01/22 10:18:00 EST, Height, 84.2, kg, 05/21/22 0:51:00 EDT, Dry Weight Start Date: 06/01/22 Stop Date: 05/27/23 Status: Ordered Lipitor 80 mg oral tablet 1 tablet = 80 mg, By Mouth, Daily at bedtime, para colesterol / proteger el paty/ arterias tapadas en el paty, # 30 tablet, 11 Refills, Maintenance, 05/04/22 10:23:00 EDT, Tablet, [facility] fill upon patient request, [...] 05/04/22 10:27:00 EDT, Route to Pharmacy Electronically, [facility]... Start Date: 05/04/22 Status: Ordered [...] Type II DM, ICD10 E11.65. Fax to [address] [place] [address], 07/07/22 11:52:00 EST, Supply Start Date: 07/07/22 [...] weight: 93kg, 11/21/21 16:40:00 EDT, sent to [facility]. Start Date: 11/21/21 Status: Ordered shower [...] recurrent falls Confirmed Active Care coordination [facility]-CP Care Management Bre Skinner, CC [phone] Confirmed 02/02/19 Active Thrombocytopenia Confirmed Active TIA [...] Event Display: Cardiac Rehab Note Authored Date: [id number] Patient: SHERYL ROJO Age: 58 years Sex: Male : 1960 Associated Diagnoses: None Author: Macarena Traylor RN Dear Anna, Pamela patient sheryl Rojo was scheduled for a phase 2 Cardiac Rehab orientation today but did not show. Telephone message was left with patient via [employer] to reschedule when able. Thank You, Arlen Traylor RN, BSN Report sent to all consultants: Melvina TAVERAS, Anna Morrow. Patient Care team information Care Team Personnel Name: Sorin Moser RN Position: S RN Member Role: Primary Care Nurse Name: Brandi Wei RN Position: S RN Member Role: Primary Care Nurse Name: Ya Collier RN Position: [facility] PCO RN Member Role: Primary Care Nurse Name: Valentnia Leiva RN Position: [facility] SN RN Member Role: Primary Care Nurse Name: Macarena Bedolla Position: [facility] Outreach Member Role: Lifetime Consulting Physician Name: Abigail Nuno RN Position: [facility] Onco RN Member Role: Primary Care Nurse Name: Claire Trujillo MD Position: [facility] Primary Care Physician Member Role: PCP Address: Address: [address] [place] [id number] Name: Heidi Dao Position: [facility] RN Member Role: Primary Care Nurse Care Team Related Persons Name: JOEL BRIZUELA Address: home [address] [place] [id number]
--- OUTSIDE RECORDS SUMMARY | 2023-12-10 00:45 | XMS_ITS | Continuity of Care Document ---
Author Organization [facility] Address [address] [place] [address]- Care Team Providers Care Cast Iron Drain Pipe Layer Name Role Phone Claire Trujillo MD Primary Care Physician [phone] [place] [facility] [place](s): 06/09/20 - 07/09/[address] [address] Allergies, Adverse Reactions, Alerts Substance Reaction [...] PLUS 1 MORE TIME NEEDED FOR SYMPTOMS, [facility] Start Date: 04/21/19 Status: Ordered FREESTYLE LANCETS 100CT See Instructions, # 100 each, Refills 11 Tot. Refills 11, USE DIRECTED FOR TYPE 1 DIABETES, KEVIN,[facility] Start Date: 03/18/19 Status: Ordered Freestyle [...] 07/28/19 15:59:00 EST, Route to Pharmacy Electronically, [facility], 165, cm, 07/21/19 14:31:00 EST, Height, [...] 11/05/19 18:37:00 EDT, Route to Pharmacy Electronically, [facility], 165, cm, 07/21/19 14:31:00 EST, Height, [...] 02/03/20 10:00:00 EDT, Route to Pharmacy Electronically, [facility], 165, cm, 01/12/20 16:41:00 EDT, Height, [...] [facility]-CP C are Management Bre Skinner, CC [phone](Confirmed) 02/02/19 Active Thrombocytopenia(Confirmed) Active Type 1 diabetes mellitus(Confirmed) Active Social History Social History Type Response Smoking Status Never (less than 100 in lifetime) entered on: 06/19/19 Sex
--- OUTSIDE RECORDS SUMMARY | 2023-12-10 00:45 | XMS_ITS | Continuity of Care Document ---
Author Organization [facility] Address [address] [place] [address]- Care Team Providers Care Transportation Planning Technician Name Role Phone Claire Trujillo MD Primary Care Physician Encounter [facility] Date(s): 09/09/22 - 10/09/[address] [address]- Allergies, Adverse Reactions, Alerts Substance Reaction Severity Status metFORMIN 1 GI symptoms Active 1GI intolreance Immunizations Given and Recorded Vaccine Date Status Refusal Reason SARS-CoV-2 mRNA (gjqlpnj-sgud-qkqoc) vax 03/03/22 Given SARS-CoV-2 mRNA (qasmiip-tqzz-qofqr) vax 08/27/21 Given SARS-CoV-2 (COVID-19) mRNA BNT-162b2 [...] 05/22/02 Recorded tetanus-diphtheria toxoids (Td) 7/18/05 Recorded Not Given Vaccine Date Status Refusal [...] Moderate, Apply to legs for diabetic neuropathy. Cook Islander sig, # 60 Gm, 1 Refills, Maintenance, 06/06/22 9:44:00 EST, Cream, [facility], Partial fill upon patient request [...] 09/04/22 13:08:00 EST, Route to Pharmacy Electronically, [facility], Partial fill upon patient request [...] E10.42 duration: 99 weeks. Fax to Cheryl [facility], 05/11/21 11:23:00 EDT, Supply Start Date: 05/11/21 Status: Ordered Home blood pressure monitor Home blood pressure monitor, See Instructions, # 1 each, Refills 0, Tot. Refills 0, Maintenance, ICD 10 I95.1; E11. 43 ALEIDA: 99 Bring rx to [facility], 05/25/22 12:53:00 EST, Supply Start Date: 05/25/22 Status: Ordered HumaLOG KwikPen 100 units/mL injectable solution See Instructions, Mealtime insulin; dose according to finger stick before meals FS 100-199: 5 unitsFS: 200-249: 6 units FS 250-299: 7 units FS above 300: 8 units, # 15 mL, 11 Refills, 06/01/22 10:46:00 EST, [facility]., 165, cm... Start Date: 06/01/22 Status: Ordered Jardiance 25 mg oral tablet 1 tablet = 25 mg, By Mouth, Daily in AM, # 30 tablet, 5 Refills, Maintenance, 06/01/22 10:45:00 EST, [facility], Partial fill upon patient request if the prescription is for a schedule II opioid drug., 165, cm, 06/01/22 10:18:00 EST, H... Start Date: 06/01/22 Stop Date: 11/28/22 Status: Ordered Lantus Solostar Pen 100 units/mL subcutaneous solution = 18 units, Subcutaneous Injection, Daily at bedtime, Insulina de 24 horas., # 15 mL, 11 Refills, Maintenance, 09/13/22 12:18:00 EST, [facility], [facility] 165, cm, 09/04/22 13:02:00EST, Height, 84.2, kg, 05/21/22 0:51:00 EDT, Dry We... Start Date: 09/13/22 Stop Date: 09/08/23 Status: Ordered Lipitor 80 mg oral tablet 1 tablet = 80 mg, By Mouth, Daily at bedtime, para colesterol / proteger el paty/ arterias tapadas en el paty, # 30 tablet, 11 Refills, Maintenance, 05/04/22 10:23:00 EDT, Tablet, [facility], Partial fill upon patient request, [...] 05/04/22 10:27:00 EDT, Route to Pharmacy Electronically, [facility]... Start Date: 05/04/22 Status: Ordered [...] Type II DM, ICD10 E11.65. Fax to [address] [place] [address]., 09/13/22 12:18:00 EST, Supply Start Date: 09/13/22 [...] weight: 93kg, 11/21/21 16:40:00 EDT, sent to [facility]. Start Date: 11/21/21 Status: Ordered shower [...] in recurrent falls Confirmed Active Care coordination [facility]-CP Care Management Bre Skinner, CC [phone] Confirmed 02/02/19 Active Thrombocytopenia Confirmed Active TIA (transient ischemic attack) Confirmed Active T2DM (type 2 diabetes mellitus) Confirmed Active Social History Social History Type Response Smoking Status Never (less than 100 in lifetime) entered on: 06/19/19 Sex Patient Care team information Care Team Personnel Name: Sorin Moser RN Position: [facility] RN Member Role: Primary Care Nurse Name: Brandi Wei RN Position: [facility] RN Member Role: Primary Care Nurse Name: Ya Collier RN Position: [facility] PCO RN Member Role: Primary Care Nurse Name: Valentina Leiva RN Position: [facility] SN RN Member Role: Primary Care Nurse Name: Macarena Bedolla Position: [facility] Outreach Member Role: Lifetime Consulting Physician Name: Abigail Nuno RN Position: [facility] Onco RN Member Role: Primary Care Nurse Name: Claire Trujillo MD Position: [facility] Primary Care Physician Member Role: PCP Address: Address: [address] [place] [address]- Name: Heidi Dao Position: [facility] RN Member Role: Primary Care Nurse Care Team Related Persons Name: JOEL BRIZUELA Address: home [address] [place] [address]
--- OUTSIDE RECORDS SUMMARY | 2023-12-10 00:45 | XMS_ITS | Continuity of Care Document ---
Author Organization [facility] Address [address] [place] [address]- Care Team Providers Care Director Sales Name Role Phone Claire Trujillo MD Primary Care Physician Encounter [facility] [id number] Date(s): 03/10/21 - 04/09/[address] [address]- Attending Physician: Uche Urena Admitting Physician: Uche Urena Referring Physician: Uche Urena Allergies, Adverse Reactions, Alerts Substance Reaction Severity [...] Type II DM, ICD10 E11.65. Fax to Cheryl [facility], 10/28/20 14:47:00 EDT, Supply Start Date: 10/28/20 Status: Ordered empagliflozin 10 mg oral tablet 1 tablet = 10 mg, By Mouth, Daily in AM, # 30 tablet, 2 Refills, Maintenance, 03/10/21 11:43:00 EDT, Tablet, [facility], Partial fill upon patient request if the prescription is for a schedule IIopioid drug., 164, cm, 03/02/21 8:40:00 EDT, Height... Start Date: 03/10/21 Stop Date: 06/08/21 Status: Ordered escitalopram 10 mg oral tablet [...] PLUS 1 MORE TIME NEEDED FOR SYMPTOMS, [facility] Start Date: 04/21/19 Status: Ordered FREESTYLE LANCETS 100CT See Instructions, # 100 each, Refills 11 Tot. Refills 11, USE DIRECTED FOR TYPE 1 DIABETES, [facility] Start Date: 03/18/19 [...] 01/06/21 12:38:00 EDT, Route to Pharmacy Electronically, [facility], 163, cm, 01/03/21 10:40:00 EDT, Height, 91, kg, 04/19/20 23:16:00 EDT, Dry Weight Start Date: 01/06/21 Status: Ordered Hand Held Shower Head Hand Held Shower Head, See Instructions, # 1 each, Refills 0, Tot. Refills 0, Maintenance, diagnosis: diabetic neuropathy, T1DM. ICD10: E10.42 duration: 99 weeks. Fax to Cheryl ([facility]), 10/28/20 14:53:00 EDT, Supply Start Date: 10/28/20 Status: Ordered isosorbide mononitrate 60 mg oral tablet, extended release 60 mg, 1, tablet, By Mouth, Daily in AM, # 90 tablet, Refills 3, Tot. Refills 3, Maintenance, 01/03/21 10:57:00 EDT, Route to Pharmacy Electronically, [facility], Partial fill upon patient request if the prescription is for a schedule II opioid . Start Date: 01/03/21 Status: Ordered Lantus Solostar Pen 100 units/mL subcutaneous solution = 15 units, Subcutaneous Injection, Daily at bedtime, # 9 mL, 2 Refills, Maintenance, 05/07/20 13:08:00 EDT, Injection, [facility], 163, cm, 04/21/20 22:04:00 EDT, Height, 91, kg, 04/19/20 23:16:00 EDT, Dry Weight Start Date: 05/07/20 Stop Date: 08/05/20 Status: Ordered Lipitor 80 mg oral tablet 1 tablet = 80 mg, By Mouth, Daily at bedtime, # 90 tablet, 3 Refills, Maintenance, 03/07/21 9:07:00EDT, Tablet, [facility]/pharmacy #[id number], Partial fill upon patient request, 164, cm, 03/02/21 8:40:00 EDT, Height, 87.5, kg, 02/10/21 9:00:00 EDT, Dry Weight Start Date: 03/07/21 Stop Date: 03/02/22 Status: Ordered lisinopril 10 mg oral tablet 1, tablet, By Mouth, Daily, # 90 tablet, Refills 1, Route to Pharmacy Electronically, [facility], 164, cm, 03/02/21 8:40:00 EDT, Height, [...] 16:56:00 EST, sent to [facility].... Start Date: 08/26/20 Status: Ordered shower bars [...] 01/03/21 10:57:00 EDT, Route to Pharmacy Electronically, [facility], Partial fill upon patient request ifthe prescription is for a schedule II opioid drug.,... Start Date: 01/03/21 Status: Ordered traZODone 50 mg oral tablet 1, tablet, By Mouth, Daily at bedtime, PRN, # 30 tablet, Refills 5, Tot. Refills 0, Maintenance, ASNEEDED FOR SLEEP, 01/05/21 15:11:00 EDT, Route to Pharmacy Electronically, [facility], 163, cm,01/03/21 10:40:00 EDT, Height, 91, [...] [facility] C are Management Bre Skinner, CC [phone](Confirmed) 02/02/19 Active Thrombocytopenia(Confirmed) Active T2DM (type 2 diabetes mellitus)(Confirmed) Active Social History Social History Type Response Smoking Status Never (less than 100 in lifetime) entered on: 06/19/19 Sex
--- OUTSIDE RECORDS SUMMARY | 2023-12-10 00:45 | XMS_ITS | Continuity of Care Document ---
Author Organization [facility] Address [address] [place] [address]- Care Team Providers Care Die Reamer Name Role Phone Claire Trujillo MD Primary Care Physician [phone] [place] [facility] Date(s): 09/28/23 - 10/28/[address] [address] Allergies, Adverse Reactions, Alerts Substance Reaction Severity Status metFORMIN 1 GI symptoms Active 1GI intolreance Immunizations Given and Recorded Vaccine Date Status Refusal Reason zoster vaccine, inactivated 1 09/21/23 Recorded tetanus/diphtheria/pertussis, acel(Tdap) 2 09/21/23 Recorded tetanus/diphtheria/pertussis, acel(Tdap) 01/11/17 Given pneumococcal 20-valent conjugate vaccine 3 09/21/23 Recorded SARS-CoV-2 mRNA (pvfcfvp-hyjb-fehpd) vax 03/03/22 Given SARS-CoV-2 mRNA (zmivzwx-glgs-sjazn) vax 08/27/21 Given SARS-CoV-2 (COVID-19) mRNA BNT-162b2 [...] 11/27/22 11:10:00 EDT, [facility] fill upon patient request [...] Mouth, Daily, blood thinner/ hace la leonard odom cullen - para proteger el paty/ arterias [...] [facility] Partial fill upon patient request [...] E10.42 duration: 99 weeks. Fax to Cheryl [facility], 05/11/21 11:23:00 EDT, Supply Start Date: [...] 09/09/23 9:57:00 EST, Route to Pharmacy Electronically, [facility], Partial fill upon patien... Start Date: 09/09/23 Stop Date: 09/03/24 Status: Ordered Jardiance 25 mg oral tablet 1 tablet = 25 mg, By Mouth, Daily in AM, # 90 tablet, 3 Refills, Maintenance, 09/09/23 9:59:00 EST,[facility], Partial fill upon patient request [...] 09/27/24 13:03:00 EDT, 10/03/23 13:03:00 EDT, Injection, [facility] increase in dose, 166, cm, 09/24/23 15:24:00... Start Date: 10/03/23 Stop Date: 09/27/24 Status: Ordered Lantus Solostar Pen 100 units/mL subcutaneous solution = 23 units, Subcutaneous Injection, Daily at bedtime, Insulina de 24 horas., # 15 mL, 1 Refills, Maintenance, 04/26/24 16:08:00 EDT, Injection, [facility], No insurance (Medicare not active until 06/15). Please dispense via 340B., 165,... Start Date: 04/26/24 Status: Ordered Lipitor 80 mg oral tablet 1 tablet = 80 mg, By Mouth, Daily at bedtime, para colesterol / proteger el paty/ arterias tapadas en el paty, # 90 tablet, 3 Refills, Maintenance, 09/09/23 9:59:00 EST, Tablet, [facility] fill upon patient request, [...] Route to Pharmacy Electronically, [facility] Start Date: 09/09/23 Stop Date: 09/03/24 Status: Ordered morphine 15 mg/8 to 12 hr oral tablet, extended release 1 tablet = 15 mg, By Mouth, Every 12 hours, # 56 tablet, 0 Refills, Maintenance, 10/25/23 21:13:00 EDT, ER Tablet, [facility]/pharm[facility] #[id number], Partial fill upon patient request if [...] Acute 11/22/23 21:13:00 EDT, 10/25/23 21:13:00 EDT, [facility]/pharm[facility] #[id number], Partial fill upon patient request ifthe prescription [...] weight: 93kg, 11/21/21 16:40:00 EDT, sent to [facility]. Start Date: 11/21/21 Status: Ordered shower [...] Team Personnel Name: Sorin Moser RN Position: [facility] RN Member Role: Primary Care Nurse Name: Ya Wilson RN Position: [facility] RN Member Role: Primary Care Nurse Name: Brandi Wei RN Position: [facility] RN Member Role: Primary Care Nurse Name: Valentina Leiva RN Position: [facility] SN RN Member Role: Primary Care Nurse Name: Macarena Bedolla Position: [facility] Outreach Member Role: Lifetime Consulting Physician Name: Abigail Yang RN Position: [facility] Onco RN Member Role: Primary Care Nurse Name: Claire Trujillo MD Position: [facility] Physician - Primary Care Member Role: PCP Address: Address: [address] [place] [id number]- Name: Heidi Dao Position: [facility] RN Member Role: Primary Care Nurse Care Team Related Persons Name: JOEL BRIZUELA Address: [address] [address]
--- OUTSIDE RECORDS SUMMARY | 2023-12-10 00:45 | XMS_ITS | Continuity of Care Document ---
Author Organization [facility] Address [address] [place] [address]- Care Team Providers Care Table Attendant Name Role Phone Claire Trujillo MD Primary Care Physician Encounter [facility] Date(s): 11/27/22 - 12/04/22 [facility] [address] [place], [place] [address] Attending Physician: Maria Antonia WHITE, Aundrea Dela Cruz Admitting Physician: Aundrea Em MD Referring Physician: Ya Rondon NP Allergies, Adverse Reactions, Alerts Substance Reaction Severity Status metFORMIN 1 GI symptoms Active 1GI intolreance Immunizations Given and Recorded Vaccine Date Status Refusal Reason SARS-CoV-2 mRNA (cvsteji-csqp-olbsn) vax 03/03/22 Given SARS-CoV-2 mRNA (qzxeaav-szdl-ftxqp) vax 08/27/21 Given SARS-CoV-2 (COVID-19) mRNA BNT-162b2 [...] 0 Refills, Maintenance, 11/27/22 11:10:00 EDT, [facility]otion, [facility] upon patient [...] Moderate, Apply to legs for diabetic neuropathy. Indian sig, # 60 Gm, 1 Refills, Maintenance, 06/06/22 9:44:00 EST, Cream, [facility], Partial fill [...] 10/16/22 13:34:00 EDT, Route to Pharmacy Electronically, [facility] Partial fill upon patient request if the [...] one sensor every 14 days; check glucose qid;E11., 11/03/22 16:47:00 EDT, Supply, 165, cm, 09/04/22 [...] E10.42 duration: 99 weeks. Fax to Cheryl ([facility]), 05/11/21 11:23:00 EDT, Supply Start Date: 05/11/21 Status: Ordered Home blood pressure monitor Home blood pressure monitor, See Instructions, # 1 each, Refills 0, Tot. Refills 0, Maintenance, ICD 10 I95.1; E11. 43 ALEIDA: 99 Bring rx to [facility], 05/25/22 12:53:00 EST, Supply Start Date: 05/25/22 Status: Ordered HumaLOG KwikPen 100 units/mL injectable solution See Instructions, Mealtime insulin; dose according to finger stick before meals FS 100-199: 5 unitsFS: 200-249: 6 units FS 250-299: 7 units FS above 300: 8 units, # 15 mL, 11 Refills, 06/01/22 10:46:00 EST, [facility], 165, cm... Start Date: 06/01/22 Status: Ordered Jardiance 25 mg oral tablet 1 tablet = 25 mg, By Mouth, Daily in AM, # 30 tablet, 5 Refills, Maintenance, 11/08/22 15:44:00 EDT, [facility], Partial fill upon patient request if the prescription is for a schedule II opioid drug., 165, cm, 09/04/22 13:02:00 EST, H... Start Date: 11/08/22 Stop Date: 05/07/23 Status: Ordered Lantus Solostar Pen 100 units/mL subcutaneous solution = 18 units, Subcutaneous Injection, Daily at bedtime, Insulina de 24 horas., # 15 mL, 11 Refills, Maintenance, 09/13/22 12:18:00 EST, Injection, [facility] 165, cm, 09/04/22 13:02:00EST, Height, 84.2, kg, 05/21/22 0:51:00 EDT, Dry We... Start Date: 09/13/22 Stop Date: 09/08/23 Status: Ordered Lipitor 80 mg oral tablet 1 tablet = 80 mg, By Mouth, Daily at bedtime, para colesterol / proteger el paty/ arterias tapadas en el paty, # 30 tablet, 11 Refills, Maintenance, 05/04/22 10:23:00 EDT, Tablet, [facility], Partial fill upon patient request, 16... Start Date: 05/04/22 Stop Date: 04/29/23 Status: Ordered medical alert system medical alert system, See Instructions, # 1 each, Refills 0, Tot. Refills 0, Maintenance, dx: T2DM with severe neuropathy, frequent falls ICD10: E11.40 duration: , 05/04/22 14:02:00 EDT, Supply Start Date: 05/04/22 Status: Ordered metoprolol 50 mg oral tablet, extended release 50 mg, 1, tablet, By Mouth, Daily at bedtime, para proteger el paty/ prevenir palpitaciones Bebaantes de acostarse., # 30 tablet, Refills 11, Tot. Refills 11, Maintenance, 05/04/22 10:27:00 EDT, Route to Pharmacy Electronically, [facility]... Start Date: 05/04/22 Status: Ordered [...] 93kg, 11/21/21 16:40:00 EDT, sent to [facility]. Start Date: 11/21/21 Status: Ordered shower [...] Most recent to oldest [Reference Range]: 1 Height 165 cm (11/27/22 10:11 AM) Weight 81.65 kg (11/27/22 10:11 AM) Oxygen Saturation [94-100 %] 99 % (11/27/22 10:11 AM) Pulse Rate [55-90 bpm] 64 bpm (11/27/22 10:11 AM) Body Mass Index [18.5-24.99 kg/m2] 29.99 kg/m2 *H* (11/27/22 10:11 AM) Blood Pressure [90-138/55-84 mm Hg] 120/ 64mm Hg (11/27/22 10:11 AM) Mode of Delivery (Oxygen) Room air (11/27/22 10:11 AM) Blood pressure sites Arm, left (11/27/22 10:11 AM) Weight Obtained Via Patient/family state d (11/27/22 10:11 AM) Social History Social History Type Response Smoking Status Never (less than 100 in lifetime) entered on: 06/19/19 Sex Note * Alessandra Hassan: PERFORM, SIGN, VERIFY Event Display: Patient Education/Instruction Authored Date: [id number] [facility] *[facility] [address] Clinical Summary Name PARIS ROJO Age 62 Years 1960 PCP Claire Trujillo MD PCP Visit Date 11/27/2022 10:06:00 Additional Instructions: Scheduled Appointments?? Future Appointments ?*[facility]??[place],??[place],??[address] ?Phone:??--?Fax:??-- ?Appt. Date:??12/18/2022?11:30 AM ?Scheduled Provider:??Claire Trujillo MD Follow-Up Instructions ?? Diagnosis Medications: Please continue your medications until treatment is completed or stopped by your provider. Discuss any questions related to medications with your provider. Medications to Continue with No Changes These medications were not printed or sent to your pharmacy Aspirin (aspirin 81 mg oral delayed release tablet) 1 tab(s) Oral Daily. blood thinner/ hace la leonard mas cullen - para proteger el paty/ arterias tapadas en el paty. Refills: 11. Next Dose: Atorvastatin (Lipitor 80 mg oral tablet) 1 tab(s) Oral Daily at Bedtime for 30 Days. para colesterol / proteger el paty/ arterias tapadas en el paty. Refills: 11. Next Dose: Capsaicin Topical (capsaicin 0.025% topical cream) 1 gisella Topically 3 times a day as needed Pain , Moderate. Apply to legs for diabetic neuropathy. Indian sig. Refills: 1. Next Dose: Durable Medical Equipment (Abdominal binder for treatment of orthostatic hypotension) Dispense 2 pairs ALEIDA 99; Dx I 95.1; G99. 0 Ht 164cm Wt 88.2kg BMI 32 Fax to [facility]. Refills: 1. Next Dose: Durable Medical Equipment (Alcohol Pads) To test 3 times a day and with symptoms Dx: T2DM ICD10: E11.9 duration: 52 weeks. Refills: 11. Next Dose: Durable Medical Equipment (bed liners) dx: incontinence, T1DM icd10: N31.9 duration: 99 weeks. Refills: 11. Next Dose: Durable Medical Equipment (blood pressure cuff) for medication titration dx: essential hypertension ICD10: I10 duration: 52 weeks; as needed Pain , Mild. Refills: 0. Next Dose: Durable Medical Equipment (briefs - adult size medium) dx: incontinence, T1DM icd10: N31.9 duration: 99 weeks note size change. Refills: 11. Next Dose: Durable Medical Equipment (Compression stockings, thigh-high) Grade II: 20-30mmHg Dispense 2 pairs ALEIDA 99; Dx I 95.1; G99. 0 Ht 164cm Wt 88.2kg BMI 32 Fax to [facility]. Refills: 1. Next Dose: Durable Medical Equipment (disinfectant wipes) dx: incontinence, T1DM ICD10: N31.9 duration: 99. Refills: 11. Next Dose: Durable Medical Equipment (FreeStyle Vladislav 2 Monitor) apply one sensor every 14 days; check glucoseqid;E11.65. Refills: 0. Next Dose: Durable Medical Equipment (FreeStyle Vladislav 2 Sensors) apply one sensor every 14 days; check glucoseqid;E11.65. Refills: 11. Next Dose: Durable Medical Equipment (Freestyle Lite Lancets) Use to check sugar once per day in the morning before eating. Utilize para chequear la azucar noah vez al d miguel antes de comer (en ayunas).. Refills: 11. Next Dose: Durable Medical Equipment (Freestyle Lite Test Strips) Use to check sugar once per day in the morning before eating. Utilize para chequear la azucar noah vez al d miguel antes de comer (en ayunas).. Refills: 11. Next Dose: Durable Medical Equipment (Home blood pressure monitor) ICD 10 I95.1; E11. 43 ALEIDA: 99 Bring rx to [facility] [place]. Refills: 0. Next Dose: Durable Medical Equipment (medical alert system) dx: T2DM with severe neuropathy, frequent falls ICD10: E11.40 duration: 99. Refills: 0. Next Dose: Durable Medical Equipment (raised toilet seat) dx: autonomic neuropathy, frequent falls ICD10: G99.0 duration: 99. Refills: 0. Next Dose: Durable Medical Equipment (rollator walker w/ 4 wheels, seat and brakes) dx: diabetes with neuropathy ICD10: E11.40 duration: 99 weeks height: 164cm weight: 93kg. Refills: 0. Next Dose: Durable Medical Equipment (shower bars) dx: T1DM with severe neuropathy ICD10: E10.40 duration: 52 weeks. Refills: 0. Next Dose: Durable Medical Equipment (shower chair) diagnosis: diabetic neuropathy, T1DM ICD10: E10.42 duration: 99 weeks. Refills: 0. Next Dose: Durable Medical Equipment (shower chair) dx: autonomic neuropathy, frequent falls ICD10: G99.0 duration: 99. Refills: 0. Next Dose: Durable Medical Equipment (toilet seat) to reduce risk of falls dx: diabetic neuropathy ICD10: E11.40 duration: 52 weeks. Refills: 0. Next Dose: Durable Medical Equipment (walker with wheels and brakes) dx: diabetic neuropathy, T1DM ICD10: E10.42 duration: 99 weeks. Refills: 0. Next Dose: empagliflozin (Jardiance 25 mg oral tablet) 1 tab(s) Oral Daily in the morning for 30 Days. Refills: 5. Next Dose: Insulin Glargine (Lantus Solostar Pen 100 units/mL subcutaneous solution) 18 unit(s) Subcutaneous Injection Daily at Bedtime for 30 Days. Insulina de 24 horas.. Refills: 11. Next Dose: Insulin Lispro (HumaLOG KwikPen 100 units/mL injectable solution) Mealtime insulin; dose according to finger stick before meals FS 100-199: 5 units FS: 200-249: 6 units FS 250-299: 7 units FS above 300: 8 units. Refills: 11. Next Dose: Metoprolol (metoprolol 50 mg oral tablet, extended release) 1 tab(s) Oral Daily at Bedtime. para proteger el paty/ prevenir palpitaciones Noelle antes de acostarse.. Refills: 11. Next Dose: Miscellaneous Rx (Hand Held Shower Head) diagnosis: diabetic neuropathy, T1DM. ICD10: E10.42 duration: 99 weeks. Fax to Cheryl ([facility]). Refills: 0. Next Dose: Miscellaneous Rx (one pair Diabetic Shoes with Inserts) Wear for diabetic foot care. Diagnosis: Type II DM, ICD10 E11.65.. Refills: 0. Next Dose: Nortriptyline (nortriptyline 10 mg oral capsule) GEORGE 1 CAPSULA POR LA BOCA CADA MIGUEL A LA HORA DE DORMIR *NUEVO MEDICAMENTO PARA DOLOR NEUROPATICO. NO GEORGE JUNTO CON TRAZODONE-PUEDE CAUSAR SEDACION*. Refills: 5. Next Dose: Sulfamethoxazole/Trimethoprim (Bactrim DS 800 mg-160 mg oral tablet) 1 tab(s) Oral every 12 hours for 7 Days. Refills: 0. Next Dose: Tamsulosin (Flomax 0.4 mg oral capsule) 2 capsule Oral Daily for 90 Days. Refills: 0. Next Dose: Allergy Info:?? metFORMIN Medications Given This Visit Future Orders ?No future orders Vital Signs Height 165 cm Weight 81.65 kg BMI 29.99 kg/m2 Blood Pressure 120 mm Hg/64 mm Hg Temperature Pulse Rate 64 bpm Respiratory Rate 02 Sat Mode of Delivery 99 %/Room air You can now view a summary of your hospital visit from the comfort of your home through a free online portal called [employer]. [employer] is a website that allows you to securely view your medical information including discharge summary, medications and follow-up visits. ??You can alsosend a secure electronic message to your doctor???s office to request appointments, renew medications or just ask a question. You can enroll at [email or web address] or register during your next office visit. Disclaimer:?? The information provided is of a general nature and is intended to be used in conjunction with the recommendations and advice of your health care practitioner. ??Every effort has been made to ensure that the information provided is accurate and complete at the time it is provided to you however, as your needs change, or, as new ??information becomes available, different or additional instructions may be required. If you have questions, please consult with your primary care provider or pharmacist, as appropriate. ??This information is not intended to serve as substitution for assessment and evaluation by a qualified health care provider. If you do not have a primary care provider, you may find a [facility] provider by calling [facility] [employer] at [phone]. For information about the plan of care including goals and instructions for your diagnosis, please see the patient education orders section of this document. Patient Education Materials?? The content of this educational material or handout may have been modified, supplemented, or adapted from its original content and format to support your individualized medical care. Patient Care team information Care Team Personnel Name: Sorin Moser RN Position: [facility] RN Member Role: Primary Care Nurse Name: Brandi Wei RN Position: [facility] RN Member Role: Primary Care Nurse Name: Ya Collier RN Position: [facility] PCO RN Member Role: Primary Care Nurse Name: Valentina Leiva RN Position: [facility] SN RN Member Role: Primary Care Nurse Name: Macarena Bedolla Position: [facility] Outreach Member Role: Lifetime Consulting Physician Name: Abigail Nuno RN Position: [facility] Onco RN Member Role: Primary Care Nurse Name: Claire Trujillo MD Position: [facility] Primary Care Physician Member Role: PCP Address: Address: [address] [place] [address] Name: Heidi Dao Position: [facility] RN Member Role: Primary Care Nurse Care Team Related Persons Name: JOEL BRIZUELA Address: home [address] [place] [address]
--- OUTSIDE RECORDS SUMMARY | 2023-12-10 00:45 | XMS_ITS | Continuity of Care Document ---
Author Organization [facility] Address [address] [place] [address]- Care Team Providers Care Ecologist Technician Name Role Phone Claire Trujillo MD Primary Care Physician [phone] Encounter [facility] Date(s): 05/04/22 - 06/24/[address] [address]- Attending Physician: Not on Staff, Attending MD Referring Physician: Aundrea Delarosa MD Allergies, Adverse Reactions, Alerts Substance Reaction Severity Status metFORMIN 1 GI symptoms Active 1GI intolreance Immunizations Given and Recorded Vaccine Date Status Refusal Reason SARS-CoV-2 mRNA (tikosst-jjca-nddia) vax 03/03/22 Given SARS-CoV-2 mRNA (qyzcqam-httg-ooxhh) vax 08/27/21 Given SARS-CoV-2 (COVID-19) mRNA BNT-162b2 [...] weeks, 06/08/20 13:21:00 EST, Supply Start Date: 11/24/20 Status: Ordered briefs - adult size medium [...] Moderate, Apply to legs for diabetic neuropathy. Malaysian sig, # 60 Gm, 1 Refills, Maintenance, 06/06/22 9:44:00 EST, Cream, [facility], Partial fill upon patient request [...] Type II DM, ICD10 E11.65. Fax to [address] [place] [address], 05/04/22 14:01:00 EDT, Supply Start Date: 05/04/22 [...] E10.42 duration: 99 weeks. Fax to Cheryl [facility], 05/11/21 11:23:00 EDT, Supply Start Date: 05/11/21 Status: Ordered Home blood pressure monitor Home blood pressure monitor, See Instructions, # 1 each, Refills 0, Tot. Refills 0, Maintenance, ICD 10 I95.1; E11. 43 ALEIDA: [facility]/22 12:53:00 EST, Supply Start Date: 05/25/22 Status: Ordered HumaLOG KwikPen 100 units/mL injectable solution See Instructions, Mealtime insulin; dose according to finger stick before meals FS 100-199: 5 unitsFS: 200-249: 6 units FS 250-299: 7 units FS above 300: 8 units, # 15 mL, 11 Refills, 06/01/22 10:46:00 EST, [facility]., 165, cm... Start Date: 06/01/22 Status: Ordered Jardiance 25 mg oral tablet 1 tablet = 25 mg, By Mouth, Daily in AM, # 30 tablet, 5 Refills, Maintenance, 06/01/22 10:45:00 EST, [facility], Partial fill upon patient request if the prescription is for a schedule II opioid drug., 165, cm, 06/01/22 10:18:00 EST, H... Start Date: 06/01/22 Stop Date: 11/28/22 Status: Ordered Lantus Solostar Pen 100 units/mL subcutaneous solution = 12 units, Subcutaneous Injection, Daily at bedtime, Insulina de 24 horas., # 6 mL, 11 Refills, Maintenance, 06/01/22 10:46:00 EST, [facility], [facility] 165, cm, 06/01/22 10:18:00 EST, Height, 84.2, kg, 05/21/22 0:51:00 EDT, Dry Weight Start Date: 06/01/22 Stop Date: 05/27/23 Status: Ordered Lipitor 80 mg oral tablet 1 tablet = 80 mg, By Mouth, Daily at bedtime, para colesterol / proteger el paty/ arterias tapadas en el paty, # 30 tablet, 11 Refills, Maintenance, 05/04/22 10:23:00 EDT, Tablet, [facility], Partial fill upon patient request, 16... [...] 10:27:00 EDT, Route to Pharmacy Electronically, [facility]... Start Date: 05/04/22 Status: Ordered nortriptyline 10 mg oral capsule See Instructions, GEORGE 1 CAPSULA POR LA BOCA CADA MIGUEL A LA HORA DE DORMIR *NUEVO MEDICAMENTO PARA DOLOR NEUROPATICO. NO GEORGE JUNTO CON TRAZODONE-PUEDE CAUSAR SEDACION*, # 30 capsule, Refills 1, Maintenance, 06/23/22 9:29:00 EST, Instructions Replace... Start Date: 06/23/22 Status: Ordered raised toilet seat raised toilet [...] weight: 93kg, 11/21/21 16:40:00 EDT, sent to [facility]. Start Date: 11/21/21 Status: Ordered shower [...] 05/26/22 14:26:00 EST, Route to Pharmacy Electronically, [facility], Partial fill upon patien... Start Date: 05/26/22 [...] in recurrent falls Confirmed Active Care coordination [facility] Care Management Bre Skinner, CC [phone] Confirmed 02/02/19 Active Thrombocytopenia Confirmed Active TIA [...] Care Nurse Name: Ya Collier RN Position: [facility] PCO RN Member Role: Primary Care Nurse Name: Valentina Leiva RN Position: [facility] SN RN Member Role: Primary Care Nurse Name: Macarena Bedolla Position: [facility] Outreach Member Role: Lifetime Consulting Physician Name: Yaakov EPPERSON, Abigail Position: [facility] Onco RN Member Role: Primary Care Nurse Name: Claire Trujillo MD Position: [facility] Primary Care Physician Member Role: PCP Address: Address: [address] [place] [id number] Name: Heidi Dao Position: [facility] RN Member Role: Primary Care Nurse Care Team Related Persons Name: JOEL BRIZUELA Address: [address] [address]
--- OUTSIDE RECORDS SUMMARY | 2023-12-10 00:45 | XMS_ITS | Continuity of Care Document ---
Author Organization [facility] Address [address] [place] [address]- Care Team Providers Care Security Shift Manager Name Role Phone Claire Trujillo MD Primary Care Physician Encounter [facility] Date(s): 02/03/20 - 03/04/[address] [address]- [facility] Allergies, Adverse Reactions, Alerts [...] PLUS 1 MORE TIME NEEDED FOR SYMPTOMS, [facility] Start Date: 04/21/19 Status: Ordered FREESTYLE LANCETS 100CT See Instructions, # 100 each, Refills 11 Tot. Refills 11, USE DIRECTED FOR TYPE 1 DIABETES, KEVIN,[facility] Start Date: 03/18/19 Status: Ordered Freestyle [...] 07/28/19 15:59:00 EST, Route to Pharmacy Electronically, [facility], 165, cm, 07/21/19 14:31:00 EST, Height, 91, kg, 06/19/19 16:55:00 EST, Dry We... Start Date: 07/28/19 Stop Date: 07/22/20 Status: Ordered isosorbide mononitrate 30 mg oral tablet, extended release 1 tablet = 30 mg, By Mouth, Daily in AM, # 30 tablet, 11 Refills, Maintenance, 02/23/20 12:51:00 EDT, [facility], 165, cm, 01/12/20 16:41:00 EDT, Height, [...] 11/05/19 18:37:00 EDT, Route to Pharmacy Electronically, [facility], 165, cm, 07/21/19 14:31:00 EST, Height, [...] 02/03/20 10:00:00 EDT, Route to Pharmacy Electronically, [facility], 165, cm, 01/12/20 16:41:00 EDT, Height, [...] N-CP C are Management Bre Skinner, CC [phone](Confirmed) 02/02/19 Active Thrombocytopenia(Confirmed) Active Type 1 diabetes mellitus(Confirmed) Active Social History Social History Type Response Smoking Status Never (less than 100 in lifetime) entered on: 06/19/19 Sex
--- OUTSIDE RECORDS SUMMARY | 2023-12-10 00:45 | XMS_ITS | Continuity of Care Document ---
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 Name Role Phone Claire Trujillo MD Primary Care Physician Encounter [facility] R [id number] Date(s): 01/19/23 - 02/18/[address] [address] Attending Physician: Uche Urena Admitting Physician: AdmUche sheth Referring Physician: Admtr, Uche Allergies, Adverse Reactions, Alerts Substance Reaction Severity Status metFORMIN 1 GI symptoms Active 1GI intolreance Immunizations Given and Recorded Vaccine Date Status Refusal Reason SARS-CoV-2 mRNA (ezgexjh-xidu-ctzjk) vax 03/03/22 Given SARS-CoV-2 mRNA (hidkvmq-fovq-kwsyp) vax 08/27/21 Given SARS-CoV-2 (COVID-19) mRNA BNT-162b2 [...] Refills, Maintenance, 11/27/22 11:10:00 EDT, Lotion, [facility], Partial fill upon patient request if the prescri... Start Date: 11/27/22 Status: Ordered aspirin 81 mg oral delayed release tablet 81 mg, 1, tablet, By Mouth, Daily, blood thinner/ hace la leonard mas cullen - para proteger el paty/ arterias tapadas en el paty, # 30 tablet, Refills 11, Tot. Refills 11, Maintenance, 05/04/22 10:23:00 EDT, Route to Pharmacy Electronically, [facility]... Start Date: 05/04/22 Status: Ordered bed [...] Moderate, Apply to legs for diabetic neuropathy. Jordanian sig, # 60 Gm, 1 Refills, Maintenance, 06/06/22 9:44:00 EST, Cream, [facility], Partial fill upon patient request [...] 01/04/23 15:22:00 EDT, Route to Pharmacy Electronically, [facility], Partial fill upon patient request if the pre... Start Date: 01/04/23 Stop Date: 03/05/23 Status: Ordered Flomax 0.4 mg oral capsule 0.8 mg, 2, capsule, By Mouth, Daily, # 180 capsule, Refills 0, Tot. Refills 0, Maintenance, 10/16/22 13:34:00 EDT, Route to Pharmacy Electronically, [facility]., Partial fill upon patient request if [...] E10.42 duration: 99 weeks. Fax to [facility], 05/11/21 11:23:00 EDT, Supply Start Date: 05/11/21 Status: Ordered Home blood pressure monitor Home blood pressure monitor, See Instructions, # 1 each, Refills 0, Tot. Refills 0, Maintenance, ICD 10 I95.1; E11. 43 ALEIDA: 99 [facility] 05/25/22 12:53:00 EST, Supply Start Date: 05/25/22 Status: Ordered HumaLOG KwikPen 100 units/mL injectable solution See Instructions, Mealtime insulin; dose according to finger stick before meals FS 100-199: 5 unitsFS: 200-249: 6 units FS 250-299: 7 units FS above 300: 8 units, # 15 mL, 11 Refills, 06/01/22 10:46:00 EST, [facility]., 165, cm... Start Date: 06/01/22 Status: Ordered Jardiance 25 mg oral tablet 1 tablet = 25 mg, By Mouth, Daily in AM, # 30 tablet, 5 Refills, Maintenance, 11/08/22 15:44:00 EDT, [facility], Partial fill upon patient request if the prescription is for a schedule II opioid drug., 165, cm, 09/04/22 13:02:00 EST, H... Start Date: 11/08/22 Stop Date: 05/07/23 Status: Ordered Lantus Solostar Pen 100 units/mL subcutaneous solution = 23 units, Subcutaneous Injection, Daily at bedtime, Insulina de 24 horas., # 15 mL, 11 Refills, Maintenance, 01/02/23 13:26:00 EDT, Injection, [facility]., increase in dose, 165, cm,01/02/23 13:02:00 EDT, Height, 84.2, kg, 05/21/22 0... Start Date: 01/02/23 Stop Date: 12/28/23 Status: Ordered Lipitor 80 mg oral tablet 1 tablet = 80 mg, By Mouth, Daily at bedtime, para colesterol / proteger el paty/ arterias tapadas en el paty, # 30 tablet, 11 Refills, Maintenance, 05/04/22 10:23:00 EDT, Tablet, [facility] Partial fill upon patient request, 16... [...] 10:27:00 EDT, Route to Pharmacy Electronically, [facility]... Start Date: 05/04/22 Status: Ordered MiraLax oral powder for reconstitution = 17 Gm, By Mouth, Daily, PRN Constipation, for 30 days, dissolve in water before taking, # 527 Gm,1 Refills, Acute 03/05/23 15:21:00 EDT, 01/04/23 15:21:00 EDT, REC Powder, [facility]., Partial fill upon patient request if [...] 02/12/23 15:59:00 EDT, [facility] Pharm[facility]ically[facility], [facility] fill upon patient... Start Date: [...] weight: 93kg, 11/21/21 16:40:00 EDT[facility] Start Date: 11/21/21 Status: Ordered shower bars [...] Display: Case Management Discharge Plan Authored Date: [id number] Patient: PARIS ROJO Age: 59 years Sex: Male : 1960 Associated Diagnoses: None Author: [place] RN, Yuridia Unable to reach pt for follow up call. Call placed to Pt. [phone] via Jordanian language line/[email or web address]/[id number] l/m on v/ requesting return call to [facility] to schedule f/u appt. Pt. to be scheduled for IPF as noted in [facility] D/C instructions 06/21/19: Follow-Up InstructionsFollow Up With: Where: When: Claire Trujillo Within 1 to 2 weeks * Yuridia Zepeda RN: PERFORM, SIGN, VERIFY Event Display: Case Management Discharge Plan Authored Date: [id number] Patient: PARIS ROJO Age: 58 years Sex: Male : 1960 Associated Diagnoses: None Author: Yuridia Zepeda RN Unable to reach pt for follow up call. Call placed to Pt. [phone] via Jordanian language line/Finn [phone] RNCM was informed that Pt. is not at home presently. RNCM l/m with Pt. spouse/Joel (emergency contact in [facility]) informing of appt. 02/07/19 10:20am at [facility] * Yuridia Zepeda RN: PERFORM, SIGN, VERIFY Event Display: Case Management Discharge Plan Authored Date: [id number] Patient: PARIS ROJO Age: 58 years Sex: Male : 1960 Associated Diagnoses: None Author: Yuridia Zepeda RN Unable to reach pt for follow up call. Call placed to Pt. [phone] via Jordanian Language line/Zulema [id number] l/m on v/ requesting returncall to [facility] to schedule appt. (IPF appt. to be scheduled when call is returned). Patient Care team information Care Team Personnel Name: Sorin Moser RN Position: [facility] RN Member Role: Primary Care Nurse Name: Brandi Wei RN Position: [facility] RN Member Role: Primary Care Nurse Name: Ya Collier RN Position: [facility] Office Staff Member Role: Primary Care Nurse Name: Valentina Leiva RN Position: [facility] SN RN Member Role: Primary Care Nurse Name: Macarena Bedolla Position: [facility] Outreach Member Role: Lifetime Consulting Physician Name: Abigail Nuno RN Position: [facility] Onco RN Member Role: Primary Care Nurse Name: Claire Trujillo MD Position: [facility] Physician - Primary Care Member Role: PCP Address: Address: [address] [place] [id number] Name: Heidi Dao Position: [facility] RN Member Role: Primary Care Nurse Care Team Related Persons Name: BRIZUELAJOEL LOTT Address: [facility] [address] [place] [id number]
--- OUTSIDE RECORDS SUMMARY | 2023-12-10 00:45 | XMS_ITS | Continuity of Care Document ---
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 Name Role Phone Claire Trujillo MD Primary Care Physician [phone] Encounter [facility] Date(s): 12/28/21 - 01/27/[address] [address]- Allergies, Adverse Reactions, Alerts Substance Reaction Severity Status metFORMIN 1 GI symptoms Active 1GI intolreance Immunizations Given and Recorded Vaccine Date Status Refusal Reason SARS-CoV-2 mRNA (mzwprzu-pmzw-lgoqz) vax 08/27/21 Given SARS-CoV-2 (COVID-19) mRNA BNT-162b2 [...] tablet, 1 Refills, Maintenance, 10/17/21 10:37:00 EDT, [facility] 164, cm, 03/02/21 8:40:00 EDT, [...] N31.9 duration: 99 weeks note size change, 01/25/22 12:59:00 EDT, Supply Start Date: 01/25/22 Status: Ordered calcium (as carbonate)-vitamin D 500 mg-400 intl units oral tablet 1 tablet, By Mouth, 2 times a day, # 60 tablet, 5 Refills, 08/10/21 14:27:00 EST, [facility] [address] 30, 1 tablet By Mouth [...] 11, USE DIRECTED FOR TYPE 1 DIABETES, KEVIN,[facility] Start Date: 03/18/19 [...] capsule, Refills 2, Route to Pharmacy Electronically, [facility], 164, cm, 03/02/21 8:40:00 EDT, Height, 87.5, kg, 02/10/21 9:00:00 EDT, Dry Weight Start Date: 11/14/21 Status: Ordered Hand Held Shower Head Hand Held Shower Head, See Instructions, # 1 each, Refills 0, Tot. Refills 0, Maintenance, diagnosis: diabetic neuropathy, T1DM. ICD10: E10.42 duration: 99 weeks. Fax to Cheryl ([facility]), 05/11/21 11:23:00 EDT, Supply Start Date: 05/11/21 Status: Ordered isosorbide mononitrate 60 mg oral tablet, extended release 60 mg, 1, tablet, By Mouth, Daily in AM, # 30 tablet, Refills 5, Tot. Refills 5, Maintenance, 11/14/21 12:33:00 EDT, Route to Pharmacy Electronically, [facility], Partial fill upon patient request if the prescription is for a schedule... Start Date: 11/14/21 Status: Ordered Jardiance 10 mg oral tablet 1 tablet, By Mouth, Daily in AM, # 30 tablet, 2 Refills, 11/14/21 12:32:00 EDT, [facility], 164, cm, 03/02/21 8:40:00 EDT, Height, 87.5, kg, 02/10/21 9:00:00 EDT, Dry Weight Start Date: 11/14/21 Status: Ordered Lantus Solostar Pen 100 units/mL subcutaneous solution = 15 units, Subcutaneous Injection, Daily at bedtime, # 9 mL, 2 Refills, Maintenance, 05/07/20 13:08:00 EDT, Injection, [facility], 163, cm, 04/21/20 22:04:00 EDT, Height, 91, kg, 04/19/20 23:16:00 EDT, Dry Weight Start Date: 05/07/20 Stop Date: 08/05/20 Status: Ordered Lantus Solostar Pen 100 units/mL subcutaneous solution See Instructions, INJECT 15 UNITS SUBCUTANEOUSLY DAILY AT BEDTIME, # 15 mL, 2 Refills, 08/10/21 14:27:00 EST, [facility], 164, cm, 03/02/21 8:40:00 EDT, Height, 87.5, kg, 02/10/21 9:00:00 EDT, Dry Weight Start Date: 08/10/21 Status: Ordered Lipitor 80 mg oral tablet 1 tablet = 80 mg, By Mouth, Daily at bedtime, # 30 tablet, 5 Refills, Maintenance, 10/17/21 10:36:00 EDT, Tablet, [facility], Partial fill upon patient request, 164, cm, 03/02/21 8:40:00 EDT, Height, 87.5, kg, 02/10/21 9:00:00 EDT, Dry... Start Date: 10/17/21 Status: Ordered lisinopril 10 mg oral tablet 1, tablet, By Mouth, Daily, # 30 each, Refills 5, Tot. Refills 5, 10/17/21 10:36:00 EDT, Route to Pharmacy Electronically, [facility], 164, cm, 03/02/21 8:40:00 EDT, Height, [...] Mouth, Daily, # 90 tablet, 3 Refills, [facility], 164, cm, 03/02/21 8:40:00 EDT,Height, 87.5, kg, [...] weight: 91kg, 08/26/20 16:56:00 EST, sent to [facility]. Start Date: 08/26/20 Status: Ordered rollator walker w/ 4 wheels, seat and brakes rollator walker w/ 4 wheels, seat and brakes, See Instructions, # 1 each, Refills 0, Tot. Refills 0, Maintenance, dx: diabetes with neuropathy ICD10: E11.40 duration: 99 weeks height: 164cm weight: 93kg, 11/21/21 16:40:00 EDT, sent to [facility]. Start Date: 11/21/21 Status: Ordered shower [...] 08/26/21 13:58:00 EST, [facility] Pharm[facility]ically, [facility], Partial fill upon patient request if the prescription is for a schedule II opi... Start Date: 08/26/21 Status: Ordered traZODone 50 mg oral tablet 1, tablet, By Mouth, Daily at bedtime, PRN, # 30 tablet, Refills 5, Tot. Refills 5, Maintenance, ASNEEDED FOR SLEEP, 11/14/21 12:34:00 EDT, Route to Pharmacy Electronically, [facility] 164, cm, 03/02/21 8:40:00 EDT, Height, 87.5, [...] N-CP C are Management Bre Skinner, CC [phone](Confirmed) 02/02/19 Active Thrombocytopenia(Confirmed) Active T2DM (type 2 diabetes mellitus)(Confirmed) Active Social History Social History Type Response Smoking Status Never (less than 100 in lifetime) entered on: 06/19/19 Sex
--- OUTSIDE RECORDS SUMMARY | 2023-12-10 00:45 | XMS_ITS | Continuity of Care Document ---
Author Organization [facility] Address [address] [place] [address]- Care Team Providers Care Chief Of Production Name Role Phone Claire Trujillo MD Primary Care Physician [phone] [place] [facility] 06/07[place]22 - 07/07/[address] [address]- Allergies, Adverse Reactions, Alerts Substance Reaction Severity Status metFORMIN 1 GI symptoms Active 1GI intolreance Immunizations Given and Recorded Vaccine Date Status Refusal Reason SARS-CoV-2 mRNA (ldwgygb-mcfn-xmljc) vax 03/03/22 Given SARS-CoV-2 mRNA (eykwauo-wbfs-wxxzk) vax 08/27/21 Given SARS-CoV-2 (COVID-19) mRNA BNT-162b2 [...] Moderate, Apply to legs for diabetic neuropathy. [place] sig, # 60 Gm, 1 Refills, Maintenance, 06/06/22 9:44:00 EST, Cream, [facility] Partial fill upon patient request if [...] E10.42 duration: 99 weeks. Fax to [facility], 05/11/21 11:23:00 EDT, Supply Start Date: 05/11/21 Status: Ordered Home blood pressure monitor Home blood pressure monitor, See Instructions, # 1 each, Refills 0, Tot. Refills 0, Maintenance, ICD 10 I95.1; E11. 43 ALEIDA: 99 [facility] 05/25/[facility] 12:53:00 EST, Supply Start Date: 05/25/22 Status: Ordered HumaLOG KwikPen 100 units/mL injectable solution See Instructions, Mealtime insulin; dose according to finger stick before meals FS 100-199: 5 unitsFS: 200-249: 6 units FS 250-299: 7 units FS above 300: 8 units, # 15 mL, 11 Refills, 06/01/22 10:46:00 EST, [facility]., 165, cm... Start Date: 06/01/22 Status: Ordered Jardiance 25 mg oral tablet 1 tablet = 25 mg, By Mouth, Daily in AM, # 30 tablet, 5 Refills, Maintenance, 06/01/22 10:45:00 EST, [facility]., Partial fill upon patient request if the prescription is for a schedule II opioid drug., 165, cm, 06/01/22 10:18:00 EST, H... Start Date: 06/01/22 Stop Date: 11/28/22 Status: Ordered Lantus Solostar Pen 100 units/mL subcutaneous solution = 12 units, Subcutaneous Injection, Daily at bedtime, Insulina de 24 horas., # 6 mL, 11 Refills, Maintenance, 06/01/22 10:46:00 EST, Injection, [facility]., 165, cm, 06/01/22 10:18:00 EST, Height, 84.2, kg, 05/21/22 0:51:00 EDT, Dry Weight Start Date: 06/01/22 Stop Date: 05/27/23 Status: Ordered Lipitor 80 mg oral tablet 1 tablet = 80 mg, By Mouth, Daily at bedtime, para colesterol / proteger el paty/ arterias tapadas en el paty, # 30 tablet, 11 Refills, Maintenance, 05/04/22 10:23:00 EDT, Tablet, [facility] Partial fill upon patient request, [...] 10:27:00 EDT, Route to Pharmacy Electronically, [facility]... Start Date: 05/04/22 Status: Ordered nortriptyline [...] Type II DM, ICD10 E11.65. Fax to [address] [place] [address]., 07/07/22 11:52:00 EST, Supply Start Date: 07/07/22 [...] 11/21/21 16:40:00 EDT, sent to [facility]. Start Date: 11/21/21 Status: Ordered shower [...] 05/26/22 14:26:00 EST, Route to Pharmacy Electronically, [facility], Partial fill upon patien... Start Date: [...] in recurrent falls Confirmed Active Care coordination [facility]-CP Care Management Bre Skinner, CC [phone] Confirmed 02/02/19 Active Thrombocytopenia Confirmed Active TIA (transient ischemic attack) Confirmed Active T2DM (type 2 diabetes mellitus) Confirmed Active Social History Social History Type Response Smoking Status Never (less than 100 in lifetime) entered on: 06/19/19 Sex Patient Care team information Care Team Personnel Name: Sorin Moser RN Position: [facility] RN Member Role: Primary Care Nurse Name: Brandi Wei RN Position: [facility] RN Member Role: Primary Care Nurse Name: Ya Collier RN Position: [facility] PCO RN Member Role: Primary Care Nurse Name: Valentina Leiva RN Position: [facility] SN RN Member Role: Primary Care Nurse Name: Macarena Bedolla Position: [facility] Outreach Member Role: Lifetime Consulting Physician Name: Abigail Nuno RN Position: [facility] Onco RN Member Role: Primary Care Nurse Name: Claire Trujillo MD Position: [facility] Primary Care Physician Member Role: PCP Address: Address: [address] [place] [id number]- Name: Heidi Dao Position: [facility] RN Member Role: Primary Care Nurse Care Team Related Persons Name: JOEL BRIZUELA Address: [address] [address]
--- OUTSIDE RECORDS SUMMARY | 2023-12-10 00:45 | XMS_ITS | Continuity of Care Document ---
Author Organization [facility] Address [address] [place] [address]- Care Team Providers Care Otorhinolaryngologist Name Role Phone Claire Trujillo MD Primary Care Physician [place] [facility] [place] - 12/18/[address] [address]- Allergies, Adverse Reactions, Alerts Substance Reaction Severity Status metFORMIN 1 GI symptoms Active 1GI intolreance Immunizations Given and Recorded Vaccine Date Status Refusal Reason SARS-CoV-2 mRNA (nxuxhlz-[id number]-[id number]) vax 08/27/21 Given SARS-CoV-2 (COVID-19) mRNA BNT-162b2 [...] tablet, 1 Refills, Maintenance, 10/17/21 10:37:00 EDT, [facility], cm, 03/02/21 8:40:00 [...] 60 tablet, 5 Refills, 08/10/21 14:27:00 EST, [facility] 30, 1 tablet By Mouth 2 times a day, 164, cm, 03/02/21 8:40:00 EDT, Height, 87.5, kg, 02/10/21 9:00:00 EDT, Dry Weight Start Date: 08/10/21 Status: Ordered Diabetic Shoes with Inserts Diabetic Shoes with Inserts, See Instructions, # 2 each, Refills 0, Tot. Refills 0, Maintenance, Wear for diabetic foot care. Diagnosis: Type II DM, ICD10 E11.65. Fax to [facility], 10/28/20 14:47:00 EDT, Supply Start [...] 1 MORE TIME NEEDED FOR SYMPTOMS, [facility] Start Date: 04/21/19 Status: Ordered FREESTYLE LANCETS 100CT See Instructions, # 100 each, Refills 11 Tot. Refills 11, USE [facility]ED [facility] TYPE [facility]ABETES, [facility] Start Date: 03/18/19 Status: Ordered [...] capsule, Refills 2, Route to Pharmacy Electronically, [facility], 164, cm, 03/02/21 8:40:00 EDT, Height, 87.5, kg, 02/10/21 9:00:00 EDT, Dry Weight Start Date: 11/14/21 Status: Ordered Hand Held Shower Head Hand Held Shower Head, See Instructions, # 1 each, Refills 0, Tot. Refills 0, Maintenance, diagnosis: diabetic neuropathy, T1DM. ICD10: E10.42 duration: 99 weeks. Fax to Cheryl ([facility]), 05/11/21 11:23:00 EDT, Supply Start Date: 05/11/21 Status: Ordered isosorbide mononitrate 60 mg oral tablet, extended release 60 mg, 1, tablet, By Mouth, Daily in AM, # 30 tablet, Refills 5, Tot. Refills 5, Maintenance, 11/14/21 12:33:00 EDT, Route to Pharmacy Electronically, [facility], Partial fill upon patient request if the prescription is for a schedule... Start Date: 11/14/21 Status: Ordered Jardiance 10 mg oral tablet 1 tablet, By Mouth, Daily in AM, # 30 tablet, 2 Refills, 11/14/21 12:32:00 EDT, [facility], 164, cm, 03/02/21 8:40:00 EDT, Height, 87.5, kg, 02/10/21 9:00:00 EDT, Dry Weight Start Date: 11/14/21 Status: Ordered Lantus Solostar Pen 100 units/mL subcutaneous solution = 15 units, Subcutaneous Injection, Daily at bedtime, # 9 mL, 2 Refills, Maintenance, 05/07/20 13:08:00 EDT, Injection, [facility], 163, cm, 04/21/20 22:04:00 EDT, Height, 91, kg, 04/19/20 23:16:00 EDT, Dry Weight Start Date: 05/07/20 Stop Date: 08/05/20 Status: Ordered Lantus Solostar Pen 100 units/mL subcutaneous solution See Instructions, INJECT 15 UNITS SUBCUTANEOUSLY DAILY AT BEDTIME, # 15 mL, 2 Refills, 08/10/21 14:27:00 EST, [facility], 164, cm, 03/02/21 8:40:00 EDT, Height, 87.5, kg, 02/10/21 9:00:00 EDT, Dry Weight Start Date: 08/10/21 Status: Ordered Lipitor 80 mg oral tablet 1 tablet = 80 mg, By Mouth, Daily at bedtime, # 30 tablet, 5 Refills, Maintenance, 10/17/21 10:36:00 EDT, Tablet, [facility], Partial fill upon patient request, 164, cm, 03/02/21 8:40:00 EDT, Height, 87.5, kg, 02/10/21 9:00:00 EDT, Dry... Start Date: 10/17/21 Status: Ordered lisinopril 10 mg oral tablet 1, tablet, By Mouth, Daily, # 30 each, Refills 5, Tot. Refills 5, 10/17/21 10:36:00 EDT, Route to Pharmacy Electronically, [facility], 164, cm, 03/02/21 8:40:00 EDT, Height, [...] Mouth, Daily, # 90 tablet, 3 Refills, [facility], 164, cm, 03/02/21 8:40:00 EDT,Height, [...] weight: 91kg, 08/26/20 16:56:00 EST, sent to [facility]. Start Date: 08/26/20 Status: Ordered rollator walker w/ 4 wheels, seat and brakes rollator walker w/ 4 wheels, seat and brakes, See Instructions, # 1 each, Refills 0, Tot. Refills 0, Maintenance, dx: diabetes with neuropathy ICD10: E11.40 duration: 99 weeks height: 164cm weight: 93kg, 11/21/21 16:40:00 EDT, sent to [facility] Start Date: 11/21/21 Status: Ordered shower bars [...] 08/26/21 13:58:00 EST, Route to Pharmacy Electronically, [facility], Partial fill upon patient request if the prescription is for a schedule II opi... Start Date: 08/26/21 Status: Ordered traZODone 50 mg oral tablet 1, tablet, By Mouth, Daily at bedtime, PRN, # 30 tablet, Refills 5, Tot. Refills 5, Maintenance, ASNEEDED FOR SLEEP, 11/14/21 12:34:00 EDT, Route to Pharmacy Electronically, [facility], 164, cm, 03/02/21 8:40:00 EDT, Height, [...] BHN-BHCP C are Management Bre Skinner, CC [phone](Confirmed) 02/02/19 Active Thrombocytopenia(Confirmed) Active T2DM (type 2 diabetes mellitus)(Confirmed) Active Social History Social History Type Response Smoking Status Never (less than 100 in lifetime) entered on: 06/19/19 Sex
--- OUTSIDE RECORDS SUMMARY | 2023-12-10 00:46 | XMS_ITS | Continuity of Care Document ---
Author Organization [facility] Address [address] [place] [address]- Care Team Providers Care Clinical Dental Technician Name Role Phone Claire Trujillo MD Primary Care Physician Encounter [facility] [place] 09/03/23 - 10/03/[address] [address]- Allergies, Adverse Reactions, Alerts Substance Reaction Severity Status metFORMIN 1 GI symptoms Active 1GI intolreance Immunizations Given and Recorded Vaccine Date Status Refusal Reason SARS-CoV-2 mRNA (sphmilr-vcyx-hkueq) vax 03/03/22 Given SARS-CoV-2 mRNA (jmwutzv-vetp-yehsx) vax 08/27/21 Given SARS-CoV-2 (COVID-19) mRNA BNT-162b2 [...] 0 Refills, Maintenance, 11/27/22 11:10:00 EDT, [facility], [facility] fill upon patient request if the prescri... Start Date: 11/27/22 Status: Ordered Ankle foot orthostis Ankle foot orthostis, See Instructions, # 1 each, Refills 0, Tot. Refills 0, Maintenance, E11.40 needed for 99 weeks Fax to [facility], 09/24/23 17:56:00 EDT, Supply Start Date: 09/24/23 Status: Ordered aspirin 81 mg oral delayed release tablet 81 mg, 1, tablet, By Mouth, Daily, blood thinner/ hace la leonard mas cullen - para proteger el paty/ arterias tapadas en el paty, # 90 tablet, Refills 3, Tot. Refills 3, Maintenance, 09/09/23 9:59:00 EST, [facility] Start Date: 09/09/23 Stop Date: 09/03/24 [...] 05/02/23 16:08:00 EDT, Route to Pharmacy Electronically, [facility], Partial fill upon patient request if the pr... Start Date: 05/02/23 Stop Date: 07/01/23 Status: Ordered Flomax 0.4 mg oral capsule 0.8 mg, 2, capsule, By Mouth, Daily, # 180 capsule, Refills 1, Tot. Refills 1, Maintenance, 10/03/23 13:04:00 EDT, [facility], Partial fill upon patient [...] E10.42 duration: 99 weeks. Fax to Cheryl ([facility]), 05/11/21 11:23:00 EDT, Supply Start [...] 09/09/23 9:57:00 EST, Route to Pharmacy Electronically, [facility], Partial fill upon patien... Start Date: 09/09/23 Stop Date: 09/03/24 Status: Ordered Jardiance 25 mg oral tablet 1 tablet = 25 mg, By Mouth, Daily in AM, # 90 tablet, 3 Refills, Maintenance, 09/09/23 9:59:00 EST,[facility], Partial fill upon patient request if [...] 09/27/24 13:03:00 EDT, 10/03/23 13:03:00 EDT, Injection, [facility], increase in dose, 166, cm, 09/24/23 15:24:00... Start Date: 10/03/23 Stop Date: 09/27/24 Status: Ordered Lantus Solostar Pen 100 units/mL subcutaneous solution = 23 units, Subcutaneous Injection, Daily at bedtime, Insulina de 24 horas., # 15 mL, 1 Refills, Maintenance, 04/26/24 16:08:00 EDT, Injection, [facility], No insurance (Medicare not active until 06/15). Please dispense via 340B., 165,... Start Date: 04/26/24 Status: Ordered Lipitor 80 mg oral tablet 1 tablet = 80 mg, By Mouth, Daily at bedtime, para colesterol / proteger el paty/ arterias tapadas en el paty, # 90 tablet, 3 Refills, Maintenance, 09/09/23 9:59:00 EST, Tablet, [facility], Partial fill upon patient request, 166,... [...] 09/09/23 9:57:00 EST, Route to Pharmacy Electronically, [facility]... Start Date: 09/09/23 Stop Date: 09/03/24 Status: Ordered morphine 15 mg/8 to 12 hr oral tablet, extended release 1 tablet = 15 mg, By Mouth, Every 12 hours, # 56 tablet, 0 Refills, Maintenance, 09/28/23 10:34:00 EDT, ER Tablet, [id number], Partial fill upon patient request [...] Acute 10/26/23 10:34:00 EDT, 09/28/23 10:34:00 EDT, [id number], Partial fill upon patient request ifthe prescription is for a schedule II opioid drug.... Start Date: 09/28/23 Stop Date: 10/26/23 Status: Ordered powerwheel chair powerwheel chair, See Instructions, # 1 each, Refills 0, Tot. 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 99 weeks fax to [facility], 09/24/23 17:56:00 EDT, Supply Start Date: 09/24/23 [...] 93kg, 11/21/21 16:40:00 EDT, sent to [facility] Start Date: 11/21/21 Status: Ordered shower [...] Care Nurse Name: Brandi Wei RN Position: [facility] RN Member Role: Primary Care Nurse Name: Valentina Leiva RN Position: [facility] SN RN Member Role: Primary Care Nurse Name: Macarena Bedolla Position: [facility] Outreach Member Role: Lifetime Consulting Physician Name: Abigail Nuno RN Position: [facility] Onco RN Member Role: Primary Care Nurse Name: Claire Trujillo MD Position: [facility] Physician - Primary Care Member Role: PCP Address: Address: [address] [place] [address]- Name: Heidi Dao Position: [facility] RN Member Role: Primary Care Nurse Care Team Related Persons Name: JOEL BRIZUELA Address: home [address] [place] [id number]
--- OUTSIDE RECORDS SUMMARY | 2023-12-10 00:46 | XMS_ITS | Continuity of Care Document ---
Author Organization [facility] Address [address] [place] [address]- Care Team Providers Care Supervisor Special Services Name Role Phone Claire Trujillo MD Primary Care Physician [phone] Encounter [facility] [place] Date(s): 12/05/21 - 01/04/[address] [address]- Allergies, Adverse Reactions, Alerts Substance Reaction Severity Status metFORMIN 1 GI symptoms Active 1GI intolreance Immunizations Given and Recorded Vaccine Date Status Refusal Reason SARS-CoV-2 mRNA (ekgrtyg-beho-zaujw) vax 08/27/21 Given SARS-CoV-2 (COVID-19) mRNA BNT-162b2 [...] tablet, 1 Refills, Maintenance, 10/17/21 10:37:00 EDT, [facility], 164, cm, 03/02/21 8:40:00 EDT, [...] 60 tablet, 5 Refills, 08/10/21 14:27:00 EST, [facility] 30, 1 tablet By Mouth 2 times a day, 164, cm, 03/02/21 8:40:00 EDT, Height, 87.5, kg, 02/10/21 9:00:00 EDT, Dry Weight Start Date: 08/10/21 Status: Ordered Diabetic Shoes with Inserts Diabetic Shoes with Inserts, See Instructions, # 2 each, Refills 0, Tot. Refills 0, Maintenance, Wear for diabetic foot care. Diagnosis: Type II DM, ICD10 E11.65. Fax to [facility], 10/28/20 14:47:00 EDT, Supply Start Date: [...] PLUS 1 MORE TIME NEEDED FOR SYMPTOMS, [facility] Start Date: 04/21/19 Status: Ordered FREESTYLE LANCETS 100CT See Instructions, # 100 each, Refills 11 Tot. Refills 11, USE DIRECTED FOR TYPE 1 DIABETES, [facility] Start Date: 03/18/19 Status: Ordered Freestyle [...] capsule, Refills 2, Route to Pharmacy Electronically, [facility], 164, cm, 03/02/21 8:40:00 EDT, Height, 87.5, kg, 02/10/21 9:00:00 EDT, Dry Weight Start Date: 11/14/21 Status: Ordered Hand Held Shower Head Hand Held Shower Head, See Instructions, # 1 each, Refills 0, Tot. Refills 0, Maintenance, diagnosis: diabetic neuropathy, T1DM. ICD10: E10.42 duration: 99 weeks. Fax to Cheryl ([facility]), 05/11/21 11:23:00 EDT, Supply Start Date: 05/11/21 Status: Ordered isosorbide mononitrate 60 mg oral tablet, extended release 60 mg, 1, tablet, By Mouth, Daily in AM, # 30 tablet, Refills 5, Tot. Refills 5, Maintenance, 11/14/21 12:33:00 EDT, Route to Pharmacy Electronically, [facility], Partial fill upon patient request if the prescription is for a schedule... Start Date: 11/14/21 Status: Ordered Jardiance 10 mg oral tablet 1 tablet, By Mouth, Daily in AM, # 30 tablet, 2 Refills, 11/14/21 12:32:00 EDT, [facility], 164, cm, 03/02/21 8:40:00 EDT, Height, 87.5, kg, 02/10/21 9:00:00 EDT, Dry Weight Start Date: 11/14/21 Status: Ordered Lantus Solostar Pen 100 units/mL subcutaneous solution = 15 units, Subcutaneous Injection, Daily at bedtime, # 9 mL, 2 Refills, Maintenance, 05/07/20 13:08:00 EDT, Injection, [facility], 163, cm, 04/21/20 22:04:00 EDT, Height, 91, kg, 04/19/20 23:16:00 EDT, Dry Weight Start Date: 05/07/20 Stop Date: 08/05/20 Status: Ordered Lantus Solostar Pen 100 units/mL subcutaneous solution See Instructions, INJECT 15 UNITS SUBCUTANEOUSLY DAILY AT BEDTIME, # 15 mL, 2 Refills, 08/10/21 14:27:00 EST, [facility], 164, cm, 03/02/21 8:40:00 EDT, Height, 87.5, kg, 02/10/21 9:00:00 EDT, Dry Weight Start Date: 08/10/21 Status: Ordered Lipitor 80 mg oral tablet 1 tablet = 80 mg, By Mouth, Daily at bedtime, # 30 tablet, 5 Refills, Maintenance, 10/17/21 10:36:00 EDT, Tablet, [facility], Partial fill upon patient request, 164, cm, 03/02/21 8:40:00 EDT, Height, 87.5, kg, 02/10/21 9:00:00 EDT, Dry... Start Date: 10/17/21 Status: Ordered lisinopril 10 mg oral tablet 1, tablet, By Mouth, Daily, # 30 each, Refills 5, Tot. Refills 5, 10/17/21 10:36:00 EDT, Route to Pharmacy Electronically, [facility], 164, cm, 03/02/21 8:40:00 EDT, Height, [...] Mouth, Daily, # 90 tablet, 3 Refills, [facility], 164, cm, 03/02/21 8:40:00 EDT,Height, [...] weight: 91kg, 08/26/20 16:56:00 EST, sent to [facility]. Start Date: 08/26/20 Status: Ordered rollator [...] 08/26/21 13:58:00 EST, Route to Pharmacy Electronically, [facility], Partial fill upon patient request if the prescription is for a schedule II opi... Start Date: 08/26/21 Status: Ordered traZODone 50 mg oral tablet 1, tablet, By Mouth, Daily at bedtime, PRN, # 30 tablet, Refills 5, Tot. Refills 5, Maintenance, ASNEEDED FOR SLEEP, 11/14/21 12:34:00 EDT, Route to Pharmacy Electronically, [facility], 164, cm, 03/02/21 8:40:00 EDT, [...] BHN-BHCP C are Management Bre Skinner, CC [phone](Confirmed) 02/02/19 Active Thrombocytopenia(Confirmed) Active T2DM (type 2 diabetes mellitus)(Confirmed) Active Social History Social History Type Response Smoking Status Never (less than 100 in lifetime) entered on: 06/19/19 Sex
--- OUTSIDE RECORDS SUMMARY | 2023-12-10 00:46 | XMS_ITS | Continuity of Care Document ---
Author Organization [facility] Address [address] [place] [address]- Care Team Providers Care Automatic Machine Attendant Name Role Phone Claire Trujillo MD Primary Care Physician Encounter [facility] [place] Date(s): 03/02/23 - 04/01/[address] [address]- Allergies, Adverse Reactions, Alerts Substance Reaction Severity Status metFORMIN 1 GI symptoms Active 1GI intolreance Immunizations Given and Recorded Vaccine Date Status Refusal Reason SARS-CoV-2 mRNA (jlsmcev-fgto-zsebg) vax 03/03/22 Given SARS-CoV-2 mRNA (wwpnnxx-twel-zxqhd) vax 08/27/21 Given SARS-CoV-2 (COVID-19) mRNA BNT-162b2 [...] 0 Refills, Maintenance, 11/27/22 11:10:00 EDT, [facility], [facility], Partial fill upon patient request if the prescri... Start Date: 11/27/22 Status: Ordered aspirin 81 mg oral delayed release tablet 81 mg, 1, tablet, By Mouth, Daily, blood thinner/ hace la leonard mas ucllen - para proteger el paty/ arterias tapadas en el paty, # 90 tablet, Refills 3, Tot. Refills 3, Maintenance, 03/31/23 11:15:00 EDT, Route to Pharmacy Electronically, [facility]... Start Date: 03/31/23 Stop Date: 03/25/24 Status: [...] Moderate, Apply to legs for diabetic neuropathy. Tristanian sig, # 60 Gm, 1 Refills, Maintenance, 06/06/22 9:44:00 EST, Cream, [facility], Partial fill upon patient request if the [...] 01/04/23 15:22:00 EDT, Route to Pharmacy Electronically, [facility], Partial fill upon patient request if the pre... Start Date: 01/04/23 Stop Date: 03/05/23 Status: Ordered Flomax 0.4 mg oral capsule 0.8 mg, 2, capsule, By Mouth, Daily, # 180 capsule, Refills 1, Tot. Refills 1, Maintenance, 03/31/23 11:17:00 EDT, Route to Pharmacy Electronically, [facility], Partial fill upon patient request if the [...] E11. 43 ALEIDA: [facility] 12[facility]53[facility]00 EST, Supply Start Date: 05/25/22 Status: Ordered HumaLOG KwikPen 100 units/mL injectable solution See Instructions, Mealtime insulin; dose according to finger stick before meals FS 100-199: 5 unitsFS: 200-249: 6 units FS 250-299: 7 units FS above 300: 8 units, # 15 mL, 11 Refills, 06/01/22 10:46:00 EST, [facility]., 165, cm... Start Date: 06/01/22 Status: Ordered isosorbide mononitrate 30 mg oral tablet, extended release 30 mg, 1, tablet, By Mouth, Daily at bedtime, Para el paty. Noelle antes de acostarse., # 30 tablet, Refills 3, Tot. Refills 3, Maintenance, 03/31/23 11:17:00 EDT, Route to Pharmacy Electronically, [facility], Partial fill upon patie... Start Date: 03/31/23 Stop Date: 07/29/23 Status: Ordered Jardiance 25 mg oral tablet 1 tablet = 25 mg, By Mouth, Daily in AM, # 30 tablet, 5 Refills, Maintenance, 11/08/22 15:44:00 EDT, [facility], Partial fill upon patient request if the prescription is for a schedule II opioid drug., 165, cm, 09/04/22 13:02:00 EST, H... Start Date: 11/08/22 Stop Date: 05/07/23 Status: Ordered Lantus Solostar Pen 100 units/mL subcutaneous solution = 23 units, Subcutaneous Injection, Daily at bedtime, Insulina de 24 horas., # 15 mL, 11 Refills, Maintenance, 01/02/23 13:26:00 EDT, Injection, [facility], increase in dose, 165, cm,01/02/23 13:02:00 EDT, Height, 84.2, kg, 05/21/22 0... Start Date: 01/02/23 Stop Date: 12/28/23 Status: Ordered Lipitor 80 mg oral tablet 1 tablet = 80 mg, By Mouth, Daily at bedtime, para colesterol / proteger el paty/ arterias tapadas en el paty, # 90 tablet, 3 Refills, Maintenance, 03/31/23 11:15:00 EDT, Tablet, [facility], Partial fill upon patient request, 165... Start [...] 03/31/23 11:15:00 EDT, Route to Pharmacy Electronically, [facility] Start Date: 03/31/23 Stop Date: 03/25/24 Status: [...] 03/09/23 8:32:00 EDT, [facility], Partial fill upon patient re... Start [...] weight: 93kg, 11/21/21 16:40:00 EDT, sent to [facility]. Start Date: 11/21/21 Status: Ordered shower [...] Team Personnel Name: Sorin Moser RN Position: [facility] RN Member Role: Primary Care Nurse Name: Brandi Wei RN Position: [facility] RN Member Role: Primary Care Nurse Name: Ya Collier RN Position: [facility] RN Member Role: Primary Care Nurse Name: Valentina Leiva RN Position: [facility] SN RN Member Role: Primary Care Nurse Name: Macarena Bedolla Position: [facility] Outreach Member Role: Lifetime Consulting Physician Name: Abigail Nuno RN Position: [facility] Onco RN Member Role: Primary Care Nurse Name: Claire Trujillo MD Position: [facility] Physician - Primary Care Member Role: PCP Address: Address: [address] [place] [id number]- Name: Heidi Dao Position: [facility] RN Member Role: Primary Care Nurse Care Team Related Persons Name: JOEL BRIZUELA Address: [address] [address]
--- OUTSIDE RECORDS SUMMARY | 2023-12-10 00:46 | XMS_ITS | Continuity of Care Document ---
Author Organization [facility] ter Address [address] [place] [address]- Care Team Providers Care Manager Investigations Name Role Phone Claire Trujillo MD Primary Care Physician [place] [facility] [place] 02/10/21 - 02/10/[address] [address] Discharge Disposition: A-D/C Home Attending Physician: Eliel Saldivar MD Admitting Physician: Eliel Saldivar MD Referring Physician: José Zambrano MD Allergies, Adverse Reactions, Alerts Substance Reaction [...] Type II DM, ICD10 E11.65. Fax to [facility], 10/28/20 14:47:00 EDT, Supply [...] 01/06/21 12:38:00 EDT, Route to Pharmacy Electronically, [facility], 163, cm, 01/03/21 10:40:00 EDT, Height, 91, kg, 04/19/20 23:16:00 EDT, Dry Weight Start Date: 01/06/21 Status: Ordered Hand Held Shower Head Hand Held Shower Head, See Instructions, # 1 each, Refills 0, Tot. Refills 0, Maintenance, diagnosis: diabetic neuropathy, T1DM. ICD10: E10.42 duration: 99 weeks. Fax to Cheryl ([facility]), 10/28/20 14:53:00 EDT, Supply Start Date: 10/28/20 Status: Ordered HumaLOG KwikPen 100 units/mL injectable solution See Instructions, INJECT UNDER THE SKIN DIRECTED. FOUR UNITS IF BS OVER 120 ,6 UNITS IF BS AT 200 ,8 UNITS IF BS AT 300, 12 UNITS IF BS 400 THREE TIMES DAILY BEFORE MEALS. MAXIMUM 60 UNITS / DAY, # 15 mL, 11 Refills, Maintenance, [facility], 16... Start Date: 10/25/20 Status: Ordered isosorbide mononitrate 30 mg oral tablet, extended release 1 tablet = 30 mg, By Mouth, Daily in AM, for 30 days, # 30 tablet, 11 Refills, Hard Stop 02/17/21 12:51:00 EDT, 02/23/20 12:51:00 EDT, [facility], 165, cm, 01/12/20 16:41:00 EDT, Height, 91, kg, 06/19/19 16:55:00 EST, Dry Weight Start Date: 02/23/20 Stop Date: 02/17/21 Status: Ordered isosorbide mononitrate 60 mg oral tablet, extended release 60 mg, 1, tablet, By Mouth, Daily in AM, # 90 tablet, Refills 3, Tot. Refills 3, Maintenance, 01/03/21 10:57:00 EDT, Route to Pharmacy Electronically, [facility], Partial fill upon patient request if the prescription is for a schedule II opioid drSophia. Start Date: 01/03/21 Status: Ordered Lantus Solostar Pen 100 units/mL subcutaneous solution = 15 units, Subcutaneous Injection, Daily at bedtime, # 9 mL, 2 Refills, Maintenance, 05/07/20 13:08:00 EDT, Injection, [facility], 163, cm, 04/21/20 22:04:00 EDT, Height, 91, kg, 04/19/20 23:16:00 EDT, Dry Weight Start Date: 05/07/20 Stop Date: 08/05/20 Status: Ordered lisinopril 10 mg oral tablet 1, tablet, By Mouth, Daily, # 90 tablet, Refills 1, Tot. Refills 1, Maintenance, 10/30/20 18:37:00 EDT, Route to Pharmacy Electronically, [facility], 163, cm, 04/21/20 22:04:00 EDT, [...] weight: 91kg, 08/26/20 16:56:00 EST, [facility] Start Date: 08/26/20 Status: Ordered shower bars [...] 01/03/21 10:57:00 EDT, Route to Pharmacy Electronically, [facility], Partial fill upon patient request ifthe prescription is for a schedule II opioid drug.,... Start Date: 01/03/21 Status: Ordered traZODone 50 mg oral tablet 1, tablet, By Mouth, Daily at bedtime, PRN, # 30 tablet, Refills 5, Tot. Refills 0, Maintenance, ASNEEDED FOR SLEEP, 01/05/21 15:11:00 EDT, Route to Pharmacy Electronically, [facility], 163, cm,01/03/21 10:40:00 EDT, Height, 91, [...] N-CP C are Management Bre Skinner, CC [phone](Confirmed) 02/02/19 Active Thrombocytopenia(Confirmed) Active Type 1 diabetes mellitus(Confirmed) Active Vital Signs Most recent to oldest [Reference Range]: 1 2 3 Height 164 cm (02/10/21 9:00 AM) 165 cm (02/10/21 7:30 AM) Weight 87.5 kg (02/10/21 9:00 AM) 89.3 kg (02/10/21 7:30 AM) Oxygen Saturation [94-100 %] 100 % (02/10/21 12:45 PM) 99 % (02/10/21 12:00 PM) 99 % (02/10/21 11:45 AM) Pulse Rate [55-90 bpm] 71 bpm (02/10/21 9:00 AM) Body Mass Index [18.5-24.99] 32.53 *>HHI* (02/10/21 9:00 AM) Blood Pressure [90-138/55-84 mm Hg] 152/76mm Hg *H* (02/10/21 12:45 PM) 150/73mm Hg *H* (02/10/21 12:00 PM) 160/72mm Hg *H* (02/10/21 11:45 AM) Respiratory Rate [16-30 br/min] 14 br/min *L* (02/10/21 12:45 PM) 8 br/min *L* (02/10/21 12:00 PM) 13 br/min *L* (02/10/21 11:45 AM) Temperature [96.8-100.4 DegF] 97.6 DegF (02/10/21 9:00 AM) Mode of Delivery (Oxygen) Room air (02/10/21 12:45 PM) Room air (02/10/21 9:00 AM) Blood pressure sites Arm, right (02/10/21 9:00 AM) Temperature Route Temporal (02/10/21 9:00 AM) Dry Weight 87.5 kg (02/10/21 9:00 AM) Social History Social History Type Response Smoking Status Never (less than 100 in lifetime) entered on: 06/19/19 Sex
--- OUTSIDE RECORDS SUMMARY | 2023-12-10 00:46 | XMS_ITS | Continuity of Care Document ---
Author Organization [facility] Address [address] [place] [address]- Care Team Providers Care Dipper And Baker Name Role Phone Claire Trujillo MD Primary Care Physician Encounter [facility] [place] Date(s): 11/20/22 - 12/20/[address] [address]- Allergies, Adverse Reactions, Alerts Substance Reaction Severity Status metFORMIN 1 GI symptoms Active 1GI intolreance Immunizations Given and Recorded Vaccine Date Status Refusal Reason SARS-CoV-2 mRNA (hcbeipl-ngcb-mmnei) vax 03/03/22 Given SARS-CoV-2 mRNA (pxrsior-fgbg-avkcp) vax 08/27/21 Given SARS-CoV-2 (COVID-19) mRNA BNT-162b2 [...] Refills, Maintenance, 11/27/22 11:10:00 EDT, [facility] [...] Moderate, Apply to legs for diabetic neuropathy. Yemeni sig, # 60 Gm, 1 Refills, Maintenance, 06/06/22 9:44:00 EST, Cream, [facility], Partial fill upon patient [...] 10/16/22 13:34:00 EDT, Route to Pharmacy Electronically, [facility], Partial fill upon patient [...] 99 weeks. Fax to Cheryl ([facility]), 05/11/21 11:23:00 EDT, Supply Start [...] 15 mL, 11 Refills, 06/01/22 10:46:00 EST, [facility]., 165, cm... Start Date: 06/01/22 Status: Ordered Jardiance 25 mg oral tablet 1 tablet = 25 mg, By Mouth, Daily in AM, # 30 tablet, 5 Refills, Maintenance, 11/08/22 15:44:00 EDT, [facility], Partial fill upon patient request if the prescription is for a schedule II opioid drug., 165, cm, 09/04/22 13:02:00 EST, H... Start Date: 11/08/22 Stop Date: 05/07/23 Status: Ordered Lantus Solostar Pen 100 units/mL subcutaneous solution = 18 units, Subcutaneous Injection, Daily at bedtime, Insulina de 24 horas., # 15 mL, 11 Refills, Maintenance, 09/13/22 12:18:00 EST, Injection, [facility] 165, cm, 09/04/22 13:02:00EST, Height, 84.2, kg, 05/21/22 0:51:00 EDT, Dry We... Start Date: 09/13/22 Stop Date: 09/08/23 Status: Ordered Lipitor 80 mg oral tablet 1 tablet = 80 mg, By Mouth, Daily at bedtime, para colesterol / proteger el paty/ arterias tapadas en el paty, # 30 tablet, 11 Refills, Maintenance, 05/04/22 10:23:00 EDT, Tablet, [facility], Partial fill upon patient request, [...] 05/04/22 10:27:00 EDT, Route to Pharmacy Electronically, [facility]... Start Date: 05/04/22 Status: Ordered [...] EDT, Supply Start Date: 11/23/22 Status: Ordered pregabalin 150 mg oral capsule 1 capsule = 150 mg, By Mouth, 3 times a day, start with one capsule twice a day. then increase to one capsule three times a day if tolerated, # 90 capsule, 3 Refills, Maintenance, 12/18/22 12:31:00 EDT, Capsule, [facility], Partial [place]... Start Date: 12/18/22 Stop Date: 04/17/23 Status: Ordered raised toilet seat raised toilet [...] Name: Sorin Moser RN Position: [facility] RN Member Role: Primary Care Nurse Name: Brandi Wei RN Position: [facility] RN Member Role: Primary Care Nurse Name: Ya Collier RN Position: [facility] AMB Office Staff Member Role: Primary Care Nurse Name: Valentina Leiva RN Position: [facility] SN RN Member Role: Primary Care Nurse Name: Macarena Bedolla Position: [facility] Outreach Member Role: Lifetime Consulting Physician Name: Abigail Nuno RN Position: [facility] Onco RN Member Role: Primary Care Nurse Name: Claire Trujillo MD Position: [facility] Physician - Primary Care Member Role: PCP Address: Address: [address] [place] [address]- Name: Heidi Dao Position: [facility] RN Member Role: Primary Care Nurse Care Team Related Persons Name: BRIZUELAJOEL LOTT Address: [facility] [address] [place] [id number]
--- OUTSIDE RECORDS SUMMARY | 2023-12-10 00:46 | XMS_ITS | Continuity of Care Document ---
Author Organization [facility] Address [address] [place] [address]- Care Team Providers Care Credit Adjuster Name Role Phone Claire Trujillo MD Primary Care Physician [place] [facility] [place] 02/26/20 - 03/27/[address] [address]- [facility] Allergies, Adverse Reactions, Alerts Substance Reaction [...] PLUS 1 MORE TIME NEEDED FOR SYMPTOMS, [facility] Start Date: 04/21/19 Status: Ordered FREESTYLE LANCETS 100CT See Instructions, # 100 each, Refills 11 Tot. Refills 11, USE DIRECTED FOR TYPE 1 DIABETES, KEVIN,[facility] Start Date: 03/18/19 Status: Ordered Freestyle [...] 07/28/19 15:59:00 EST, Route to Pharmacy Electronically, [facility], 165, cm, 07/21/19 14:31:00 EST, Height, 91, kg, 06/19/19 16:55:00 EST, Dry We... Start Date: 07/28/19 Stop Date: 07/22/20 Status: Ordered isosorbide mononitrate 30 mg oral tablet, extended release 1 tablet = 30 mg, By Mouth, Daily in AM, # 30 tablet, 11 Refills, Maintenance, 02/23/20 12:51:00 EDT, [facility], 165, cm, 01/12/20 16:41:00 EDT, Height, [...] 11/05/19 18:37:00 EDT, Route to Pharmacy Electronically, [facility], 165, cm, 07/21/19 14:31:00 EST, Height, [...] 02/03/20 10:00:00 EDT, Route to Pharmacy Electronically, [facility], 165, cm, 01/12/20 16:41:00 EDT, Height, [...] N-CP C are Management Bre Skinner, CC [phone](Confirmed) 02/02/19 Active Thrombocytopenia(Confirmed) Active Type 1 diabetes mellitus(Confirmed) Active Social History Social History Type Response Smoking Status Never (less than 100 in lifetime) entered on: 06/19/19 Sex
--- OUTSIDE RECORDS SUMMARY | 2023-12-10 00:46 | XMS_ITS | Continuity of Care Document ---
Author Organization [facility] Address [address] [place] [address]- Care Team Providers Care Glass Mould Cleaner Name Role Phone Claire Trujillo MD Primary Care Physician Encounter [facility] [place] Date(s): 10/29/20 - 11/28/[address] [address] Allergies, Adverse Reactions, Alerts [...] 1 Refills, Soft Stop, 06/30/20 18:54:00 EST, [facility], 163, cm, 04/21/20 22:04:00 EDT, Height, [...] 5 Refills, Maintenance, 08/18/20 16:04:00 EST, Tablet, [facility], 1 tablet By Mouth 2 times [...] 11/05/19 18:38:00 EDT, Route to Pharmacy Electronically, [facility], 165, cm, 07/21/19 14:31:00 EST, Height, 91,kg, 06/19/19 16:55:00 EST, Dry Weight Start Date: 11/05/19 Stop Date: 10/30/20 Status: Ordered FREESTYLE SHELLIE LITE See Instructions, # 100 each, Refills 10 Tot. Refills 10, USE TO CHECK BLOOD SUGARS 3 TIMES A DAY WITH MEALS PLUS 1 MORE TIME NEEDED FOR SYMPTOMS, [facility] Start Date: 04/21/19 Status: Ordered FREESTYLE LANCETS 100CT See Instructions, # 100 each, Refills 11 Tot. Refills 11, USE DIRECTED FOR TYPE 1 DIABETES, KEVIN,[facility] Start Date: 03/18/19 Status: Ordered Freestyle [...] Maintenance, 08/18/2115:13:00 EST, Route to Pharmacy Electronically, [facility], 163, cm, 04/21/20 22:04:00 EDT, Height, 91, kg, 04/19/20 23:16:00 EDT, Dry Weight Start Date: 08/18/20 Status: Ordered Hand Held Shower Head Hand Held Shower Head, See Instructions, # 1 each, Refills 0, Tot. Refills 0, Maintenance, diagnosis: diabetic neuropathy, T1DM. ICD10: E10.42 duration: 99 weeks. Fax to Cheryl ([facility]), 10/28/20 14:53:00 EDT, Supply Start Date: 10/28/20 Status: Ordered HumaLOG KwikPen 100 units/mL injectable solution See Instructions, INJECT UNDER THE SKIN DIRECTED. FOUR UNITS IF BS OVER 120 ,6 UNITS IF BS AT 200 ,8 UNITS IF BS AT 300, 12 UNITS IF BS 400 THREE TIMES DAILY BEFORE MEALS. MAXIMUM 60 UNITS / DAY, # 15 mL, 11 Refills, Maintenance, [facility], 16... Start Date: 10/25/20 Status: Ordered [...] weight: 91kg, 08/26/20 16:56:00 EST, [facility] Start Date: 08/26/20 Status: Ordered shower [...] 08/04/20 14:13:00 EST, Route to Pharmacy Electronically, [facility], 163, cm, 04/21/20 22:04:00 EDT, Height, [...] BHN-BHCP C are Management Bre Skinner, CC [phone](Confirmed) 02/02/19 Active Thrombocytopenia(Confirmed) Active Type 1 diabetes mellitus(Confirmed) Active Social History Social History Type Response Smoking Status Never (less than 100 in lifetime) entered on: 06/19/19 Sex
--- OUTSIDE RECORDS SUMMARY | 2023-12-10 00:46 | XMS_ITS | Continuity of Care Document ---
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 Refills 3, Maintenance, 11/05/19 18:38:00 EDT, Route to Pharmacy Electronically, [facility], 165, cm, 07/21/19 14:31:00 EST, Height, 91,kg, 06/19/19 16:55:00 EST, Dry Weight Start Date: 11/05/19 Stop Date: 10/30/20 Status: Ordered FREESTYLE SHELLIE LITE See Instructions, # 100 each, Refills 10 Tot. Refills 10, USE TO CHECK BLOOD SUGARS 3 TIMES A DAY WITH MEALS PLUS 1 MORE TIME NEEDED FOR SYMPTOMS, [facility] Start Date: 04/21/19 Status: Ordered FREESTYLE [...] Maintenance, 08/18/2115:13:00 EST, Route to Pharmacy Electronically, [facility], 163, cm, 04/21/20 22:04:00 EDT, Height, 91, kg, 04/19/20 23:16:00 EDT, Dry Weight Start Date: 08/18/20 Status: Ordered Humalog 100 u/ml subcutaneous injection See Instructions, take before meals (three times a day) per sliding scale 4 units if over 120; 6 at200; 8 at 300; 12 if 400 max 60 units/ day, # 6 mL, 2 Refills, Maintenance, 07/19/20 13:40:00 EST, [facility], d/c Ademlog;, 163, cm, 04/21/20... Start Date: 07/19/20 Status: Ordered isosorbide mononitrate 30 mg oral tablet, extended release 1 tablet = 30 mg, By Mouth, Daily in AM, # 30 tablet, 11 Refills, Maintenance, 02/23/20 12:51:00 EDT, [facility], 165, cm, 01/12/20 16:41:00 EDT, Height, 91, kg, 06/19/19 16:55:00 EST, Dry Weight Start Date: 02/23/20 Stop Date: 02/17/21 Status: Ordered Lantus Solostar Pen 100 units/mL subcutaneous solution = 15 units, Subcutaneous Injection, Daily at bedtime, # 9 mL, 2 Refills, Maintenance, 05/07/20 13:08:00 EDT, Injection, [facility], 163, cm, 04/21/20 22:04:00 EDT, Height, 91, kg, 04/19/20 23:16:00 EDT, Dry Weight Start Date: 05/07/20 Stop Date: 08/05/20 Status: Ordered Lipitor 80 mg oral tablet 1 tablet = 80 mg, By Mouth, Daily at bedtime, # 90 tablet, 3 Refills, Maintenance, 06/09/20 13:06:00 EST, Tablet, [facility], Partial fill upon patient request, 163, cm, 04/21/20 22:04:00 EDT, Height, 91, kg, 04/19/20 23:16:00 EDT, Dry Weight Start Date: 06/09/20 Stop Date: 06/04/21 Status: Ordered lisinopril 10 mg oral tablet 1, tablet, By Mouth, Daily, # 90 tablet, Refills 3, Tot. Refills 3, Maintenance, 11/05/19 18:37:00 EDT, Route to Pharmacy Electronically, [facility], 165, cm, 07/21/19 14:31:00 EST, Height, [...] weight: 91kg, 08/26/20 16:56:00 EST, sent to [facility]. Start Date: 08/26/20 Status: Ordered shower bars [...] 08/04/20 14:13:00 EST, Route to Pharmacy Electronically, [facility], 163, cm, 04/21/20 22:04:00 EDT, Height, [...] BHN-BHCP C are Management Bre Skinner, CC [phone](Confirmed) 02/02/19 Active Thrombocytopenia(Confirmed) Active Type 1 diabetes mellitus(Confirmed) Active Social History Social History Type Response Smoking Status Never (less than 100 in lifetime) entered on: 06/19/19 Sex
--- OUTSIDE RECORDS SUMMARY | 2023-12-10 00:46 | XMS_ITS | Continuity of Care Document ---
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 [facility]ax to [facility], 10/28/20 14:47:00 EDT, Supply Start Date: 10/28/20 Status: Ordered empagliflozin 10 mg oral tablet 1 tablet = 10 mg, By Mouth, Daily in AM, # 30 tablet, 2 Refills, Maintenance, 03/10/21 11:43:00 EDT, Tablet, [facility], Partial fill upon patient [...] 1 MORE TIME NEEDED FOR SYMPTOMS, [facility] Start Date: 04/21/19 Status: Ordered FREESTYLE LANCETS 100CT See Instructions, # 100 each, Refills 11 Tot. Refills 11, USE DIRECTED FOR TYPE 1 DIABETES, KEVIN,[facility] Start Date: 03/18/19 Status: [...] Dx: T1DM ICD10: E10.43 duration: 99 weeks, 04/18/21 17:09:00 EDT, Supply, 164, cm, 03/02/21 8:40:00 EDT, Height, 87.5, kg, 219:00:00 EDT, Dry Weight Start Date: 04/18/21 Stop Date: 05/18/21 Status: Ordered Freestyle Vladislav Sensor 14 day [...] 01/06/21 12:38:00 EDT, Route to Pharmacy Electronically, [facility], 163, cm, 01/03/21 10:40:00 EDT, Height, 91, kg, 04/19/20 23:16:00 EDT, Dry Weight Start Date: 01/06/21 Status: Ordered Hand Held Shower Head Hand Held Shower Head, See Instructions, # 1 each, Refills 0, Tot. Refills 0, Maintenance, diagnosis: diabetic neuropathy, T1DM. ICD10: E10.42 duration: 99 weeks. Fax to Cheryl ([facility]), 10/28/20 14:53:00 EDT, Supply Start Date: 10/28/20 Status: Ordered isosorbide mononitrate 60 mg oral tablet, extended release 60 mg, 1, tablet, By Mouth, Daily in AM, # 90 tablet, Refills 3, Tot. Refills 3, Maintenance, 01/03/21 10:57:00 EDT, Route to Pharmacy Electronically, [facility], Partial fill upon patient request if the prescription is for a schedule II opioid drSophia. Start Date: 01/03/21 Status: Ordered Lantus Solostar Pen 100 units/mL subcutaneous solution = 15 units, Subcutaneous Injection, Daily at bedtime, # 9 mL, 2 Refills, Maintenance, 05/07/20 13:08:00 EDT, Injection, [facility], 163, cm, 04/21/20 22:04:00 EDT, Height, 91, kg, 04/19/20 23:16:00 EDT, Dry Weight Start Date: 05/07/20 Stop Date: 08/05/20 Status: Ordered Lipitor 80 mg oral tablet 1 tablet = 80 mg, By Mouth, Daily at bedtime, # 90 tablet, 3 Refills, Maintenance, 03/07/21 9:07:00EDT, Tablet, [facility]/pharmacy #[id number], Partial fill upon patient request, 164, cm, 03/02/21 8:40:00 EDT, Height, 87.5, kg, 02/10/21 9:00:00 EDT, Dry Weight Start Date: 03/07/21 Stop Date: 03/02/22 Status: Ordered lisinopril 10 mg oral tablet 1, tablet, By Mouth, Daily, # 90 tablet, Refills 1, Route to Pharmacy Electronically, [facility], 164, cm, 03/02/21 8:40:00 [...] weight: 91kg, 08/26/20 16:56:00 EST, sent to [email or web address] Start Date: 08/26/20 Status: Ordered shower bars [...] 10:57:00 EDT, Route to Pharmacy Electronically, [facility], Partial fill upon patient [...] BHN-BHCP C are Management Bre Skinner, CC [phone](Confirmed) 02/02/19 Active Thrombocytopenia(Confirmed) Active T2DM (type 2 diabetes mellitus)(Confirmed) Active Social History Social History Type Response Smoking Status Never (less than 100 in lifetime) entered on: 06/19/19 Sex
--- OUTSIDE RECORDS SUMMARY | 2023-12-10 00:46 | XMS_ITS | Continuity of Care Document ---
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 Grading Clerk Name Role Phone Claire Trujillo MD Primary Care Physician [phone] Encounter [facility] Date(s): 11/02/21 - 12/02/[address] [address]- Allergies, Adverse Reactions, Alerts Substance Reaction Severity Status metFORMIN 1 GI symptoms Active 1GI intolreance Immunizations Given and Recorded Vaccine Date Status Refusal Reason SARS-CoV-2 mRNA (kqvusxg-brch-jupom) vax 08/27/21 Given SARS-CoV-2 (COVID-19) mRNA BNT-162b2 [...] tablet, 1 Refills, Maintenance, 10/17/21 10:37:00 EDT[facility], [facility], 03/02/21 8:40:00 [...] 5 Refills, 08/10/21 14:27:00 EST, [facility] [address] 30, 1 tablet By Mouth [...] 11, USE [facility]ED FOR TYPE [facility]ABET[facility], [facility] Start [facility]: 03/18/19 Status: Ordered [...] capsule, Refills 2, Route to Pharmacy Electronically, [facility], 164, cm, 03/02/21 8:40:00 EDT, Height, 87.5, kg, 02/10/21 9:00:00 EDT, Dry Weight Start Date: 11/14/21 Status: Ordered Hand Held Shower Head Hand Held Shower Head, See Instructions, # 1 each, Refills 0, Tot. Refills 0, Maintenance, diagnosis: diabetic neuropathy, T1DM. ICD10: E10.42 duration: 99 weeks. Fax to Cheryl ([facility]), 05/11/21 11:23:00 EDT, Supply Start Date: 05/11/21 Status: Ordered isosorbide mononitrate 60 mg oral tablet, extended release 60 mg, 1, tablet, By Mouth, Daily in AM, # 30 tablet, Refills 5, Tot. Refills 5, Maintenance, 11/14/21 12:33:00 EDT, Route to Pharmacy Electronically, [facility], Partial fill upon patient request if the prescription is for a schedule... Start Date: 11/14/21 Status: Ordered Jardiance 10 mg oral tablet 1 tablet, By Mouth, Daily in AM, # 30 tablet, 2 Refills, 11/14/21 12:32:00 EDT, [facility], 164, cm, 03/02/21 8:40:00 EDT, Height, 87.5, kg, 02/10/21 9:00:00 EDT, Dry Weight Start Date: 11/14/21 Status: Ordered Lantus Solostar Pen 100 units/mL subcutaneous solution = 15 units, Subcutaneous Injection, Daily at bedtime, # 9 mL, 2 Refills, Maintenance, 05/07/20 13:08:00 EDT, Injection, [facility], 163, cm, 04/21/20 22:04:00 EDT, Height, 91, kg, 04/19/20 23:16:00 EDT, Dry Weight Start Date: 05/07/20 Stop Date: 08/05/20 Status: Ordered Lantus Solostar Pen 100 units/mL subcutaneous solution See Instructions, INJECT 15 UNITS SUBCUTANEOUSLY DAILY AT BEDTIME, # 15 mL, 2 Refills, 08/10/21 14:27:00 EST, [facility], 164, cm, 03/02/21 8:40:00 EDT, Height, 87.5, kg, 02/10/21 9:00:00 EDT, Dry Weight Start Date: 08/10/21 Status: Ordered Lipitor 80 mg oral tablet 1 tablet = 80 mg, By Mouth, Daily at bedtime, # 30 tablet, 5 Refills, Maintenance, 10/17/21 10:36:00 EDT, Tablet, [facility], Partial fill upon patient request, 164, cm, 03/02/21 8:40:00 EDT, Height, 87.5, kg, 02/10/21 9:00:00 EDT, Dry... Start Date: 10/17/21 Status: Ordered lisinopril 10 mg oral tablet 1, tablet, By Mouth, Daily, # 30 each, Refills 5, Tot. Refills 5, 10/17/21 10:36:00 EDT, Route to Pharmacy Electronically, [facility], 164, cm, 03/02/21 8:40:00 EDT, Height, [...] Mouth, Daily, # 90 tablet, 3 Refills, [facility], 164, cm, 03/02/21 8:40:00 EDT,Height, 87.5, kg, [...] weight: 91kg, 08/26/20 16:56:00 EST, sent to [facility]. Start Date: 08/26/20 Status: Ordered rollator [...] 08/26/21 13:58:00 EST, Route to Pharmacy Electronically, [facility], Partial fill upon patient request if the prescription is for a schedule II opi... Start Date: 08/26/21 Status: Ordered traZODone 50 mg oral tablet 1, tablet, By Mouth, Daily at bedtime, PRN, # 30 tablet, Refills 5, Tot. Refills 5, Maintenance, ASNEEDED FOR SLEEP, 11/14/21 12:34:00 EDT, Route to Pharmacy Electronically, [facility] 164, cm, 03/02/21 8:40:00 EDT, Height, [...] BHN-BHCP C are Management Bre Skinner, CC [phone](Confirmed) 02/02/19 Active Thrombocytopenia(Confirmed) Active T2DM (type 2 diabetes mellitus)(Confirmed) Active Social History Social History Type Response Smoking Status Never (less than 100 in lifetime) entered on: 06/19/19 Sex
--- OUTSIDE RECORDS SUMMARY | 2023-12-10 00:46 | XMS_ITS | Continuity of Care Document ---
Author Organization [facility] Address [address] [place] [address]- Care Team Providers Care Bridge Crew Member Name Role Phone Claire Trujillo MD Primary Care Physician [phone] [place] [facility] [place] 09/27/23 - 10/27/[address] [address]- Allergies, Adverse Reactions, Alerts Substance Reaction Severity Status metFORMIN 1 GI symptoms Active 1GI intolreance Immunizations Given and Recorded Vaccine Date Status Refusal Reason zoster vaccine, inactivated 1 09/21/23 Recorded tetanus/diphtheria/pertussis, acel(Tdap) 2 09/21/23 Recorded tetanus/diphtheria/pertussis, acel(Tdap) 01/11/17 Given pneumococcal 20-valent conjugate vaccine 3 09/21/23 Recorded SARS-CoV-2 mRNA (mqyznvz-zfql-qnzws) vax 03/03/22 Given SARS-CoV-2 mRNA (mvbvykk-rbsk-npdax) vax 08/27/21 Given SARS-CoV-2 (COVID-19) mRNA BNT-162b2 [...] 0 Refills, Maintenance, 11/27/22 11:10:00 EDT, Lotion, [facility], Partial fill upon patient request if the prescri... Start Date: 11/27/22 Status: Ordered Ankle foot orthostis Ankle foot orthostis, See Instructions, # 1 each, Refills 0, Tot. Refills 0, Maintenance, E11.40 needed for 99 weeks Fax to [facility], 09/24/23 17:56:00 EDT, Supply Start Date: 09/24/23 Status: Ordered aspirin 81 mg oral delayed release tablet 81 mg, 1, tablet, By Mouth, Daily, blood thinner/ hace la leonard avileza - para proteger el paty/ arterias tapadas en el paty, # 90 tablet, Refills 3, Tot. Refills 3, Maintenance, 09/09/23 9:59:00 EST, Route to Pharmacy Electronically, [facility]... Start Date: 09/09/23 Stop Date: [...] 05/02/23 16:08:00 EDT, Route to Pharmacy Electronically, [facility], Partial fill upon patient request if the pr... Start Date: 05/02/23 Stop Date: 07/01/23 Status: Ordered Flomax 0.4 mg oral capsule 0.8 mg, 2, capsule, By Mouth, Daily, # 180 capsule, Refills 1, Tot. Refills 1, Maintenance, 10/03/23 13:04:00 EDT, [facility]ically[facility] fill upon patient request [...] E10.42 duration: 99 weeks. Fax to Cheryl ([facility], 05/11/21 11:23:00 EDT, Supply Start Date: 05/11/21 Status: Ordered Home blood pressure monitor Home blood pressure monitor, See Instructions, # 1 each, Refills 0, Tot. Refills 0, Maintenance, ICD 10 I95.1; E11. 43 ALEIDA: [facility] 12:53:00 EST, Supply Start Date: [...] 09/09/23 9:57:00 EST, Route to Pharmacy Electronically, [facility], Partial fill upon patien... Start Date: 09/09/23 Stop Date: 09/03/24 Status: Ordered Jardiance 25 mg oral tablet 1 tablet = 25 mg, By Mouth, Daily in AM, # 90 tablet, 3 Refills, Maintenance, 09/09/23 9:59:00 EST,[facility], Partial fill upon patient request if [...] 09/27/24 13:03:00 EDT, 10/03/23 13:03:00 EDT, Injection, [facility]., increase in dose, 166, cm, 09/24/23 15:24:00... Start Date: 10/03/23 Stop Date: 09/27/24 Status: Ordered Lantus Solostar Pen 100 units/mL subcutaneous solution = 23 units, Subcutaneous Injection, Daily at bedtime, Insulina de 24 horas., # 15 mL, 1 Refills, Maintenance, 04/26/24 16:08:00 EDT, Injection, [facility], No insurance (Medicare not active until 06/15). Please dispense via 340B., 165,... Start Date: 04/26/24 Status: Ordered Lipitor 80 mg oral tablet 1 tablet = 80 mg, By Mouth, Daily at bedtime, para colesterol / proteger el paty/ arterias tapadas en el paty, # 90 tablet, 3 Refills, Maintenance, 09/09/23 9:59:00 EST, [facility]t, [facility] fill upon patient request, 166,... [...] 09/09/23 9:57:00 EST, Route to Pharmacy Electronically, [facility]... Start Date: 09/09/23 Stop Date: 09/03/24 Status: Ordered morphine 15 mg/8 to 12 hr oral tablet, extended release 1 tablet = 15 mg, By Mouth, Every 12 hours, # 56 tablet, 0 Refills, Maintenance, 10/25/23 21:13:00 EDT, ER Tablet, [facility]/pharmacy #[id number], Partial fill upon patient request [...] Acute 11/22/23 21:13:00 EDT, 10/25/23 21:13:00 EDT, [facility]/pharmacy #[id number], Partial fill upon patient request ifthe prescription is for a schedule II opioid drug.... Start Date: 10/25/23 Stop Date: 11/22/23 Status: Ordered powerwheel chair powerwheel chair, See Instructions, # 1 each, Refills 0, Tot. 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 99 weeks fax to [facility], 09/24/23 17:56:00 EDT, Supply Start Date: [...] weight: 93kg, 11/21/21 16:40:00 EDT, sent to [facility]. Start Date: 11/21/21 Status: Ordered shower [...] Team Personnel Name: Sorin Moser RN Position: [facility] RN Member Role: Primary Care Nurse Name: Ya Wilson RN Position: [facility] RN Member Role: Primary Care Nurse Name: Brandi Wei RN Position: [facility] RN Member Role: Primary Care Nurse Name: Valentina Leiva RN Position: [facility] SN RN Member Role: Primary Care Nurse Name: Macarena Bedolla Position: [facility] Outreach Member Role: Lifetime Consulting Physician Name: Abigail Yang RN Position: [facility] Onco RN Member Role: Primary Care Nurse Name: Claire Trujillo MD Position: [facility] Physician - Primary Care Member Role: PCP Address: Address: [address] [place] [id number]- Name: Heidi Dao Position: [facility] RN Member Role: Primary Care Nurse Care Team Related Persons Name: JOEL BRIZUELA Address: [address] [address]
--- OUTSIDE RECORDS SUMMARY | 2023-12-10 00:46 | XMS_ITS | Continuity of Care Document ---
Author Organization [facility] Address [address] [place] [address]- Care Team Providers Care Community Services Manager Name Role Phone Claire Trujillo MD Primary Care Physician [phone] Encounter [facility] Date(s): 06/29/20 - 07/29/[address] [address] Allergies, Adverse Reactions, Alerts Substance Reaction Severity [...] EDT, Route to Pharmacy Electronically, [facility], 165, cm, 07/21/19 14:31:00 EST, Height, 91,kg, 06/19/19 16:55:00 EST, Dry Weight Start Date: 11/05/19 Stop Date: 10/30/20 Status: Ordered FREESTYLE SHELLIE LITE See Instructions, # 100 each, Refills 10 Tot. Refills 10, USE TO CHECK BLOOD SUGARS 3 TIMES A DAY WITH MEALS PLUS 1 MORE TIME NEEDED FOR SYMPTOMS, [facility] Start Date: 04/21/19 Status: Ordered FREESTYLE LANCETS 100CT See Instructions, # 100 each, Refills 11 Tot. Refills 11, USE DIRECTED FOR TYPE 1 DIABETES, KEVIN,[facility] Start Date: 03/18/19 Status: Ordered Freestyle [...] Date: 01/21/20 Stop Date: 01/15/21 Status: Ordered Humalog 100 u/ml subcutaneous injection See Instructions, take before meals (three times a day) per sliding scale 4 units if over 120; 6 at200; 8 at 300; 12 if 400 max 60 units/ day, # 6 mL, 2 Refills, Maintenance, 07/19/20 13:40:00 EST, [facility], d/c Ad[facility];, 163, cm, 04/21/20... Start [...] 11/05/19 18:37:00 EDT, Route to Pharmacy Electronically, [facility], 165, cm, 07/21/19 14:31:00 EST, Height, [...] 02/03/20 10:00:00 EDT, Route to Pharmacy Electronically, [facility], 165, cm, 01/12/20 16:41:00 EDT, Height, [...] BHN-CP C are Management Bre Skinner, CC [phone](Confirmed) 02/02/19 Active Thrombocytopenia(Confirmed) Active Type 1 diabetes mellitus(Confirmed) Active Social History Social History Type Response Smoking Status Never (less than 100 in lifetime) entered on: 06/19/19 Sex
--- OUTSIDE RECORDS SUMMARY | 2023-12-10 00:46 | XMS_ITS | Continuity of Care Document ---
Author Organization [facility] Address [address] [place] [id number]- Care Team Providers Care Engineering Illustrator Name Role Phone Claire Trujillo MD Primary Care Physician [phone] [id number] Date(s): 11/15/21 - 12/24/[address] [address]- Attending Physician: Aundrea Delarosa MD Admitting Physician: Aundrea Delarosa MD Referring Physician: Marino Nguyen MD Allergies, Adverse Reactions, Alerts Substance Reaction Severity Status metFORMIN 1 GI symptoms Active 1GI intolreance Immunizations Given and Recorded Vaccine Date Status Refusal Reason SARS-CoV-2 mRNA (jmooyli-dqdp-gblbn) vax 08/27/21 Given SARS-CoV-2 (COVID-19) mRNA BNT-162b2 [...] tablet, 1 Refills, Maintenance, 10/17/21 10:37:00 EDT, [facility], 164, cm, 03/02/21 8:40:00 EDT, Height, [...] 60 tablet, 5 Refills, 08/10/21 14:27:00 EST, [facility] 30, 1 tablet By Mouth 2 times a day, 164, cm, 03/02/21 8:40:00 EDT, Height, 87.5, kg, 02/10/21 9:00:00 EDT, Dry Weight Start Date: 08/10/21 Status: Ordered Diabetic Shoes with Inserts Diabetic Shoes with Inserts, See Instructions, # 2 each, Refills 0, Tot. Refills 0, Maintenance, Wear for diabetic foot care. Diagnosis: Type II DM, ICD10 E11.65. Fax to [facility], 10/28/20 14:47:00 EDT, Supply Start [...] 11, [facility]: [facility] Status: Ordered [...] capsule, Refills 2, [facility], 164, cm, 03/02/21 8:40:00 EDT, Height, 87.5, kg, 02/10/21 9:00:00 EDT, Dry Weight Start Date: 11/14/21 Status: Ordered Hand Held Shower Head Hand Held Shower Head, See Instructions, # 1 each, Refills 0, Tot. Refills 0, Maintenance, diagnosis: diabetic neuropathy, T1DM. ICD10: E10.42 duration: 99 weeks. Fax to Cheryl ([facility]), 05/11/21 11:23:00 EDT, Supply Start Date: 05/11/21 Status: Ordered isosorbide mononitrate 60 mg oral tablet, extended release 60 mg, 1, tablet, By Mouth, Daily in AM, # 30 tablet, Refills 5, Tot. Refills 5, Maintenance, 11/14/21 12:33:00 EDT, Route to Pharmacy Electronically, [facility], Partial fill upon patient request if the prescription is for a schedule... Start Date: 11/14/21 Status: Ordered Jardiance 10 mg oral tablet 1 tablet, By Mouth, Daily in AM, # 30 tablet, 2 Refills, 11/14/21 12:32:00 EDT, [facility], 164, cm, 03/02/21 8:40:00 EDT, Height, 87.5, kg, 02/10/21 9:00:00 EDT, Dry Weight Start Date: 11/14/21 Status: Ordered Lantus Solostar Pen 100 units/mL subcutaneous solution = 15 units, Subcutaneous Injection, Daily at bedtime, # 9 mL, 2 Refills, Maintenance, 05/07/20 13:08:00 EDT, Injection, [facility], 163, cm, 04/21/20 22:04:00 EDT, Height, 91, kg, 04/19/20 23:16:00 EDT, Dry Weight Start Date: 05/07/20 Stop Date: 08/05/20 Status: Ordered Lantus Solostar Pen 100 units/mL subcutaneous solution See Instructions, INJECT 15 UNITS SUBCUTANEOUSLY DAILY AT BEDTIME, # 15 mL, 2 Refills, 08/10/21 14:27:00 EST, [facility], 164, cm, 03/02/21 8:40:00 EDT, Height, 87.5, kg, 02/10/21 9:00:00 EDT, Dry Weight Start Date: 08/10/21 Status: Ordered Lipitor 80 mg oral tablet 1 tablet = 80 mg, By Mouth, Daily at bedtime, # 30 tablet, 5 Refills, Maintenance, 10/17/21 10:36:00 EDT, Tablet, [facility], Partial fill upon patient request, 164, cm, 03/02/21 8:40:00 EDT, Height, 87.5, kg, 02/10/21 9:00:00 EDT, Dry... Start Date: 10/17/21 Status: Ordered lisinopril 10 mg oral tablet 1, tablet, By Mouth, Daily, # 30 each, Refills 5, Tot. Refills 5, 10/17/21 10:36:00 EDT, Route to Pharmacy Electronically, [facility], 164, cm, 03/02/21 8:40:00 EDT, Height, [...] Mouth, Daily, # 90 tablet, 3 Refills, [facility], 164, cm, 03/02/21 8:40:00 EDT,Height, 87.5, [...] weight: 91kg, 08/26/20 16:56:00 EST, sent to [facility]. Start Date: 08/26/20 Status: Ordered [...] 08/26/21 13:58:00 EST, [facility] Partial fill upon patient request if the prescription is for a schedule II opi... Start Date: 08/26/21 Status: Ordered traZODone 50 mg oral tablet 1, tablet, By Mouth, Daily at bedtime, PRN, # 30 tablet, Refills 5, Tot. Refills 5, Maintenance, ASNEEDED FOR SLEEP, 11/14/21 12:34:00 EDT, [facility] 164, cm, 03/02/21 8:40:00 EDT, Height, [...] BHN-BHCP C are Management Bre Skinner, CC [phone](Confirmed) 02/02/19 Active Thrombocytopenia(Confirmed) Active T2DM (type 2 diabetes mellitus)(Confirmed) Active Social History Social History Type Response Smoking Status Never (less than 100 in lifetime) entered on: 06/19/19 Sex
--- OUTSIDE RECORDS SUMMARY | 2023-12-10 00:46 | XMS_ITS | Continuity of Care Document ---
Author Organization [facility] Address [address] [place] [address]- Care Team Providers Care Digester Capper Name Role Phone Claire Trujillo MD Primary Care Physician [phone] Encounter [facility] Date(s): 11/20/22 - 12/20/[address] [address]- Allergies, Adverse Reactions, Alerts Substance Reaction Severity Status metFORMIN 1 GI symptoms Active 1GI intolreance Immunizations Given and Recorded Vaccine Date Status Refusal Reason SARS-CoV-2 mRNA (tmczyus-hegy-gzzwe) vax 03/03/22 Given SARS-CoV-2 mRNA (upblptw-vcmc-zonpb) vax 08/27/21 Given SARS-CoV-2 (COVID-19) mRNA BNT-162b2 [...] 0 Refills, Maintenance, 11/27/22 11:10:00 EDT, [facility] upon [...] 05/04/22 10:23:00 EDT, Route to Pharmacy Electronically, [facility]... Start Date: 05/04/22 Status: Ordered bed [...] Moderate, Apply to legs for diabetic neuropathy. Bermudian sig, # 60 Gm, 1 Refills, Maintenance, 06/06/22 9:44:00 EST, Cream, [facility], Partial fill upon patient request [...] 10/16/22 13:34:00 EDT, Route to Pharmacy Electronically, [facility], Partial fill upon patient request [...] E10.42 duration: 99 weeks. Fax to Cheryl ([facility]), 05/11/21 11:23:00 EDT, Supply Start Date: 05/11/21 Status: Ordered Home blood pressure monitor Home blood pressure monitor, See Instructions, # 1 each, Refills 0, Tot. Refills 0, Maintenance, ICD 10 I95.1; E11. 43 ALEIDA: 99 Bring rx to [facility], 05/25/22 12:53:00 EST, Supply Start Date: 05/25/22 Status: Ordered HumaLOG KwikPen 100 units/mL injectable solution See Instructions, Mealtime insulin; dose according to finger stick before meals FS 100-199: 5 unitsFS: 200-249: 6 units FS 250-299: 7 units FS above 300: 8 units, # 15 mL, 11 Refills, 06/01/22 10:46:00 EST, [facility]., 165, cm... Start Date: 06/01/22 Status: Ordered Jardiance 25 mg oral tablet 1 tablet = 25 mg, By Mouth, Daily in AM, # 30 tablet, 5 Refills, Maintenance, 11/08/22 15:44:00 EDT, [facility], Partial fill upon patient request if the prescription is for a schedule II opioid drug., 165, cm, 09/04/22 13:02:00 EST, H... Start Date: 11/08/22 Stop Date: 05/07/23 Status: Ordered Lantus Solostar Pen 100 units/mL subcutaneous solution = 18 units, Subcutaneous Injection, Daily at bedtime, Insulina de 24 horas., # 15 mL, 11 Refills, Maintenance, 09/13/22 12:18:00 EST, Injection, [facility]., 165, cm, 09/04/22 13:02:00EST, Height, 84.2, kg, 05/21/22 0:51:00 EDT, Dry We... Start Date: 09/13/22 Stop Date: 09/08/23 Status: Ordered Lipitor 80 mg oral tablet 1 tablet = 80 mg, By Mouth, Daily at bedtime, para colesterol / proteger el paty/ arterias tapadas en el paty, # 30 tablet, 11 Refills, Maintenance, 05/04/22 10:23:00 EDT, Tablet, [facility], Partial fill upon patient request, 16... [...] 10:27:00 EDT, Route to Pharmacy Electronically, [facility]... Start Date: 05/04/22 Status: Ordered [...] 3 Refills, Maintenance, 12/18/22 12:31:00 EDT, [facility]apsule[facility] Partial [place]... Start Date: [...] 16:40:00 EDT, sent to [facility]. Start Date: 11/21/21 Status: Ordered shower bars [...] Collier RN Position: [facility] AMB Office Staff Member Role: Primary Care Nurse Name: Valentina Leiva RN Position: [facility] SN RN Member Role: Primary Care Nurse Name: Macarena Bedolla Position: [facility] Outreach Member Role: Lifetime Consulting Physician Name: Abigail Nuno RN Position: [facility] Onco RN Member Role: Primary Care Nurse Name: Claire Trujillo MD Position: [facility] Physician - Primary Care Member Role: PCP Address: Address: [address] [place] [id number]- Name: Heidi Dao Position: [facility] RN Member Role: Primary Care Nurse Care Team Related Persons Name: BRIZUELAJOEL LOTT Address: [facility] [address] [place] [address]
--- OUTSIDE RECORDS SUMMARY | 2023-12-10 00:46 | XMS_ITS | Continuity of Care Document ---
Author Organization [facility] Address [address] [place] [address]- Care Team Providers Care Realty Specialist Name Role Phone Claire Trujillo MD Primary Care Physician [phone] Encounter [facility] Date(s): 04/11/23 - 05/11/[address] [address]- Allergies, Adverse Reactions, Alerts Substance Reaction Severity Status metFORMIN 1 GI symptoms Active 1GI intolreance Immunizations Given and Recorded Vaccine Date Status Refusal Reason SARS-CoV-2 mRNA (tdjlqrt-[id number]) vax 03/03/22 Given SARS-CoV-2 mRNA (eymzjcf-jbqy-sxmjd) vax 08/27/21 Given SARS-CoV-2 (COVID-19) mRNA BNT-162b2 [...] 0 Refills, Maintenance, 11/27/22 11:10:00 EDT, [facility] upon patient request if the prescri... Start Date: 11/27/22 Status: Ordered aspirin 81 mg oral delayed release tablet 81 mg, 1, tablet, By Mouth, Daily, blood thinner/ hace la leonard mas cullen - para proteger el paty/ arterias tapadas en el paty, # 90 tablet, Refills 3, Tot. Refills 3, Maintenance, 05/02/23 16:07:00 EDT, Route to Pharmacy Electronically, [facility]... Start Date: 05/02/23 Stop Date: 04/26/24 Status: [...] 05/02/23 16:08:00 EDT, Route to Pharmacy Electronically, [facility], Partial fill upon patient request if the pr... Start Date: 05/02/23 Stop Date: 07/01/23 Status: Ordered Flomax 0.4 mg oral capsule 0.8 mg, 2, capsule, By Mouth, Daily, # 180 capsule, Refills 1, Tot. Refills 1, Maintenance, 05/02/23 16:07:00 EDT, Route to Pharmacy Electronically, [facility], Partial fill upon [...] Fax to Cheryl ([facility]), 05/11/21 11:23:00 EDT, Supply Start Date: 05/11/21 Status: Ordered Home blood pressure monitor Home blood pressure monitor, See Instructions, # 1 each, Refills 0, Tot. Refills 0, Maintenance, ICD 10 I95.1; E11. 43 ALEIDA: [facility] 12:53:00 EST, Supply Start Date: 05/25/22 Status: Ordered HumaLOG KwikPen 100 units/mL injectable solution See Instructions, Mealtime insulin; dose according to finger stick before meals FS 100-199: 5 unitsFS: 200-249: 6 units FS 250-299: 7 units FS above 300: 8 units, # 15 mL, 11 Refills, 05/02/23 16:09:00 EDT, [facility], 165, c... Start Date: 05/02/23 Status: Ordered isosorbide mononitrate 30 mg oral tablet, extended release 30 mg, 1, tablet, By Mouth, Daily at bedtime, Para el paty. Noelle antes de acostarse., # 30 tablet, Refills 3, Tot. Refills 3, Maintenance, 05/02/23 16:07:00 EDT, Route to Pharmacy Electronically, [facility], Partial fill upon telma... Start Date: 05/02/23 Stop Date: 08/30/23 Status: Ordered Jardiance 25 mg oral tablet 1 tablet = 25 mg, By Mouth, Daily in AM, # 30 tablet, 5 Refills, Maintenance, 05/02/23 16:09:00 EDT, [facility], Partial fill upon patient request if the prescription is for a schedule II opioid drug., 165, cm, 04/16/23 8:59:00 EDT, H... Start Date: 05/02/23 Stop Date: 10/29/23 Status: Ordered Lantus Solostar Pen 100 units/mL subcutaneous solution = 23 units, Subcutaneous Injection, Daily at bedtime, Insulina de 24 horas., # 15 mL, 11 Refills, Maintenance, 05/02/23 16:08:00 EDT, Injection, [facility], increase in dose, 165, cm, 04/16/23 8:59:00 EDT, Height, 84.2, kg, 05/21/22 0... Start Date: 05/02/23 Stop Date: 04/26/24 Status: Ordered Lipitor 80 mg oral tablet 1 tablet = 80 mg, By Mouth, Daily at bedtime, para colesterol / proteger el paty/ arterias tapadas en el paty, # 90 tablet, 3 Refills, Maintenance, 05/02/23 16:08:00 EDT, Tablet, [facility], Partial fill upon patient request, [...] 05/02/23 16:08:00 EDT, Route to Pharmacy Electronically, [facility] Start Date: 05/02/23 Stop Date: 04/26/24 Status: Ordered morphine 15 mg/8 to 12 hr oral tablet, extended release 1 tablet = 15 mg, By Mouth, Every 12 hours, # 14 tablet, 0 Refills, Maintenance, 05/04/23 11:24:00 EDT, ER Tablet, [facility]/pharmacy #[id number], Partial fill upon patient request if [...] 05/04/23 11:23:00 EDT, Route to Pharmacy Electronically, [facility]/pharmacy #[id number], Partial fill upon patient request... Start [...] 16:40:00 [facility] Start Date: 11/21/21 Status: Ordered shower bars [...] Team Personnel Name: Sorin Moser RN Position: [facility] RN Member Role: Primary Care Nurse Name: Ya Wilson RN Position: [facility] RN Member Role: Primary Care Nurse Name: Brandi Wei RN Position: [facility] RN Member Role: Primary Care Nurse Name: Valentina Leiva RN Position: [facility] SN RN Member Role: Primary Care Nurse Name: Macarena Bedolla Position: [facility] Outreach Member Role: Lifetime Consulting Physician Name: Abigail Nuno RN Position: [facility] Onco RN Member Role: Primary Care Nurse Name: Claire Trujillo MD Position: [facility] Physician - Primary Care Member Role: PCP Address: Address: [address] [place] [id number]- Name: Heidi Dao Position: [facility] RN Member Role: Primary Care Nurse Care Team Related Persons Name: JOEL BRIZUELA Address: [facility] [address] [place] [id number]
--- OUTSIDE RECORDS SUMMARY | 2023-12-10 00:46 | XMS_ITS | Continuity of Care Document ---
Author Organization [facility] Address [address] [place] [address]- Care Team Providers Care Burning Supervisor Name Role Phone Claire Trujillo MD Primary Care Physician [phone] Encounter [facility] [place] Date(s): 08/25/20 - 09/24/[address] [address] Allergies, Adverse Reactions, Alerts Substance Reaction Severity [...] 5 Refills, Maintenance, 08/18/20 16:04:00 EST, Tablet, [facility], 1 tablet By Mouth 2 times a day, 163, cm, 04/21/20 22:04:00 EDT, Height, 91, kg,04/19/20 23:16:00 EDT, Dry Weight Start Date: 08/18/20 Status: Ordered FLUoxetine 20 mg oral capsule 1, capsule, By Mouth, Daily, # 90 capsule, Refills 3, Tot. Refills 3, Maintenance, 11/05/19 18:38:00 EDT, Route to Pharmacy Electronically, [facility], 165, cm, 07/21/19 14:31:00 EST, Height, [...] Maintenance, 08/18/2115:13:00 EST, Route to Pharmacy Electronically, [facility], 163, cm, 04/21/20 22:04:00 EDT, Height, [...] 2 Refills, Maintenance, 05/07/20 13:08:00 EDT, Injection, [facility], 163, cm, 04/21/20 22:04:00 EDT, Height, [...] 11/05/19 18:37:00 EDT, Route to Pharmacy Electronically, [facility], 165, cm, 07/21/19 14:31:00 EST, Height, [...] weight: 91kg, 08/26/20 16:56:00 EST[facility] Start Date: 08/26/20 Status: Ordered shower bars [...] 08/04/20 14:13:00 EST, Route to Pharmacy Electronically, [facility], 163, cm, 04/21/20 22:04:00 EDT, Height, [...] BHN-BHCP C are Management Bre Skinner, CC [phone](Confirmed) 02/02/19 Active Thrombocytopenia(Confirmed) Active Type 1 diabetes mellitus(Confirmed) Active Social History Social History Type Response Smoking Status Never (less than 100 in lifetime) entered on: 06/19/19 Sex
--- OUTSIDE RECORDS SUMMARY | 2023-12-10 00:46 | XMS_ITS | Continuity of Care Document ---
Author Organization [facility] Address [address] [place] [address]- Care Team Providers Care Underground Mining Section Foreman Name Role Phone Claire Trujillo MD Primary Care Physician [id number] Date(s): 04/16/21 - 05/22/[address] [address] Attending Physician: Claire Trujillo MD Admitting Physician: Claire Trujillo MD Allergies, Adverse Reactions, Alerts Substance Reaction [...] II DM, ICD10 E11.65. Fax to Cheryl Stanton , 10/28/20 14:47:00 EDT, Supply Start Date: 10/28/20 Status: Ordered empagliflozin 10 mg oral tablet 1 tablet = 10 mg, By Mouth, Daily in AM, # 30 tablet, 2 Refills, Maintenance, 03/10/21 11:43:00 EDT, Tablet, [facility], Partial fill upon patient request if [...] PLUS 1 MORE TIME NEEDED FOR SYMPTOMS, [facility] Start Date: 04/21/19 Status: Ordered FREESTYLE LANCETS 100CT See Instructions, # 100 each, Refills 11 Tot. Refills 11, USE DIRECTED FOR TYPE 1 DIABETES, KEVIN,[facility] Start Date: 03/18/19 Status: Ordered Freestyle [...] 01/06/21 12:38:00 EDT, Route to Pharmacy Electronically, [facility], 163, cm, 01/03/21 10:40:00 EDT, Height, 91, kg, 04/19/20 23:16:00 EDT, Dry Weight Start Date: 01/06/21 Status: Ordered Hand Held Shower Head Hand Held Shower Head, See Instructions, # 1 each, Refills 0, Tot. Refills 0, Maintenance, diagnosis: diabetic neuropathy, T1DM. ICD10: E10.42 duration: 99 weeks. Fax to Cheryl ([facility]), 05/11/21 11:23:00 EDT, Supply Start Date: 05/11/21 Status: Ordered isosorbide mononitrate 60 mg oral tablet, extended release 60 mg, 1, tablet, By Mouth, Daily in AM, # 90 tablet, Refills 3, Tot. Refills 3, Maintenance, 01/03/21 10:57:00 EDT, Route to Pharmacy Electronically, [facility], Partial fill upon patient request if the prescription is for a schedule II opioid . Start Date: 01/03/21 Status: Ordered Lantus Solostar Pen 100 units/mL subcutaneous solution = 15 units, Subcutaneous Injection, Daily at bedtime, # 9 mL, 2 Refills, Maintenance, 05/07/20 13:08:00 EDT, Injection, [facility], 163, cm, 04/21/20 22:04:00 EDT, Height, 91, kg, 04/19/20 23:16:00 EDT, Dry Weight Start Date: 05/07/20 Stop Date: 08/05/20 Status: Ordered Lipitor 80 mg oral tablet 1 tablet = 80 mg, By Mouth, Daily at bedtime, # 90 tablet, 3 Refills, Maintenance, 03/07/21 9:07:00EDT, Tablet, [facility]/pharmacy #[id number], Partial fill upon patient request, 164, cm, 03/02/21 8:40:00 EDT, Height, 87.5, kg, 02/10/21 9:00:00 EDT, Dry Weight Start Date: 03/07/21 Stop Date: 03/02/22 Status: Ordered lisinopril 10 mg oral tablet 1, tablet, By Mouth, Daily, # 90 tablet, Refills 1, Route to Pharmacy Electronically, [facility], 164, cm, 03/02/21 8:40:00 EDT, Height, [...] weight: 91kg, 08/26/20 16:56:00 EST[facility] Start Date: 08/26/20 Status: Ordered shower bars [...] 01/03/21 10:57:00 EDT, Route to Pharmacy Electronically, [facility], Partial fill upon patient request ifthe prescription is for a schedule II opioid drug.,... Start Date: 01/03/21 Status: Ordered traZODone 50 mg oral tablet 1, tablet, By Mouth, Daily at bedtime, PRN, # 30 tablet, Refills 5, Tot. Refills 5, Maintenance, ASNEEDED FOR SLEEP, 05/20/21 15:25:00 EDT, Route to Pharmacy Electronically, [facility]/pharmacy #[id number], 164,cm, 03/02/21 8:40:00 EDT, Height, 87.5, [...] BHN-BHCP C are Management Bre Skinner, CC [phone](Confirmed) 02/02/19 Active Thrombocytopenia(Confirmed) Active T2DM (type 2 diabetes mellitus)(Confirmed) Active Social History Social History Type Response Smoking Status Never (less than 100 in lifetime) entered on: 06/19/19 Sex
--- OUTSIDE RECORDS SUMMARY | 2023-12-10 00:46 | XMS_ITS | Continuity of Care Document ---
Author Organization [facility] Address [address] [place] [address]- Care Team Providers Care Fish Grader Name Role Phone Claire Trujillo MD [id number] - [facility]21/[address] [address] Attending Physician: Claire Trujillo MD Admitting Physician: Claire Trujillo MD Referring Physician: Claire Trujillo MD Allergies, Adverse Reactions, [...] II DM, ICD10 E11.65. Fax to Cheryl [facility], 10/28/20 14:47:00 EDT, Supply Start Date: 10/28/20 Status: Ordered empagliflozin 10 mg oral tablet 1 tablet = 10 mg, By Mouth, Daily in AM, # 30 tablet, 2 Refills, Maintenance, 03/10/21 11:43:00 EDT, Tablet, [facility], Partial fill upon patient request [...] PLUS 1 MORE TIME NEEDED FOR SYMPTOMS, [facility] Start Date: 04/21/19 Status: Ordered FREESTYLE LANCETS 100CT See Instructions, # 100 each, Refills 11 Tot. Refills 11, USE DIRECTED FOR TYPE 1 DIABETES, [facility] Start Date: 03/18/19 Status: Ordered [...] 01/06/21 12:38:00 EDT, Route to Pharmacy Electronically, [facility], 163, cm, 01/03/21 10:40:00 EDT, Height, 91, kg, 04/19/20 23:16:00 EDT, Dry Weight Start Date: 01/06/21 Status: Ordered Hand Held Shower Head Hand Held Shower Head, See Instructions, # 1 each, Refills 0, Tot. Refills 0, Maintenance, diagnosis: diabetic neuropathy, T1DM. ICD10: E10.42 duration: 99 weeks. Fax to Cheryl ([facility]), 10/28/20 14:53:00 EDT, Supply Start Date: 10/28/20 Status: Ordered isosorbide mononitrate 60 mg oral tablet, extended release 60 mg, 1, tablet, By Mouth, Daily in AM, # 90 tablet, Refills 3, Tot. Refills 3, Maintenance, 01/03/21 10:57:00 EDT, Route to Pharmacy Electronically, [facility], Partial fill upon patient request if the prescription is for a schedule II opioid . Start Date: 01/03/21 Status: Ordered Lantus Solostar Pen 100 units/mL subcutaneous solution = 15 units, Subcutaneous Injection, Daily at bedtime, # 9 mL, 2 Refills, Maintenance, 05/07/20 13:08:00 EDT, Injection, [facility], 163, cm, 04/21/20 22:04:00 EDT, Height, 91, kg, 04/19/20 23:16:00 EDT, Dry Weight Start Date: 05/07/20 Stop Date: 08/05/20 Status: Ordered Lipitor 80 mg oral tablet 1 tablet = 80 mg, By Mouth, Daily at bedtime, # 90 tablet, 3 Refills, Maintenance, 03/07/21 9:07:00EDT, Tablet, [facility]/pharmacy #[id number], Partial fill upon patient [...] 08/26/20 16:56:00 EST, sent to [facility].... Start Date: 08/26/20 Status: Ordered shower [...] 01/03/21 10:57:00 EDT, Route to Pharmacy Electronically, [facility], Partial fill upon patient request ifthe prescription is for a schedule II opioid drug.,... Start Date: 01/03/21 Status: Ordered traZODone 50 mg oral tablet 1, tablet, By Mouth, Daily at bedtime, PRN, # 30 tablet, Refills 5, Tot. Refills 0, Maintenance, ASNEEDED FOR SLEEP, 01/05/21 15:11:00 EDT, Route to Pharmacy Electronically, [facility], 163, cm,01/03/21 10:40:00 EDT, Height, 91, [...] BHN-BHCP C are Management Bre Skinner, CC [phone](Confirmed) 02/02/19 Active Thrombocytopenia(Confirmed) Active T2DM (type 2 diabetes mellitus)(Confirmed) Active Social History Social History Type Response Smoking Status Never (less than 100 in lifetime) entered on: 06/19/19 Sex
--- OUTSIDE RECORDS SUMMARY | 2023-12-10 00:46 | XMS_ITS | Continuity of Care Document ---
Author Organization [facility] Address [address] [place] [address]- Care Team Providers Care Director Client Services Name Role Phone Claire Trujillo MD Primary Care Physician [phone] Encounter [facility] Date(s): 11/10/20 - 12/10/[address] [address] Allergies, Adverse Reactions, Alerts Substance Reaction [...] 1 Refills, Soft Stop, 06/30/20 18:54:00 EST, [facility], 163, cm, 04/21/20 22:04:00 EDT, Height, [...] 5 Refills, Maintenance, 08/18/20 16:04:00 EST, Tablet, [facility], 1 tablet By Mouth 2 times [...] 11/05/19 18:38:00 EDT, Route to Pharmacy Electronically, [facility], 165, cm, 07/21/19 14:31:00 EST, Height, 91,kg, 06/19/19 16:55:00 EST, Dry Weight Start Date: 11/05/19 Stop Date: 10/30/20 Status: Ordered FREESTYLE SHELLIE LITE See Instructions, # 100 each, Refills 10 Tot. Refills 10, USE TO CHECK BLOOD SUGARS 3 TIMES A DAY WITH MEALS PLUS 1 MORE TIME NEEDED FOR SYMPTOMS, [facility] Start Date: 04/21/19 Status: Ordered FREESTYLE LANCETS 100CT See Instructions, # 100 each, Refills 11 Tot. Refills 11, USE DIRECTED FOR TYPE 1 DIABETES, KEVIN,[facility] Start Date: 03/18/19 Status: Ordered Freestyle [...] Maintenance, 08/18/2115:13:00 EST, Route to Pharmacy Electronically, [facility], 163, cm, 04/21/20 22:04:00 EDT, Height, 91, kg, 04/19/20 23:16:00 EDT, Dry Weight Start Date: 08/18/20 Status: Ordered Hand Held Shower Head Hand Held Shower Head, See Instructions, # 1 each, Refills 0, Tot. Refills 0, Maintenance, diagnosis: diabetic neuropathy, T1DM. ICD10: E10.42 duration: 99 weeks. Fax to Cheryl ([facility]), 10/28/20 14:53:00 EDT, Supply Start Date: 10/28/20 Status: Ordered HumaLOG KwikPen 100 units/mL injectable solution See Instructions, INJECT UNDER THE SKIN DIRECTED. FOUR UNITS IF BS OVER 120 ,6 UNITS IF BS AT 200 ,8 UNITS IF BS AT 300, 12 UNITS IF BS 400 THREE TIMES DAILY BEFORE MEALS. MAXIMUM 60 UNITS / DAY, # 15 mL, 11 Refills, Maintenance, [facility], 16... Start Date: 10/25/20 Status: Ordered [...] weight: 91kg, 08/26/20 16:56:00 EST, [facility]. Start Date: 08/26/20 Status: Ordered shower bars [...] 08/04/20 14:13:00 EST, Route to Pharmacy Electronically, [facility], 163, cm, 04/21/20 22:04:00 EDT, Height, [...] BHN-BHCP C are Management Bre Skinner, CC [phone](Confirmed) 02/02/19 Active Thrombocytopenia(Confirmed) Active Type 1 diabetes mellitus(Confirmed) Active Social History Social History Type Response Smoking Status Never (less than 100 in lifetime) entered on: 06/19/19 Sex
--- OUTSIDE RECORDS SUMMARY | 2023-12-10 00:46 | XMS_ITS | Continuity of Care Document ---
Author Organization [facility] Address [address] [place] [address]- Care Team Providers Care Finish Mill Operator Name Role Phone Cassandra WHITE, Claire Primary Care Physician [place] [facility] [place] 09/08/[place] - 09/18/19 [facility] [address] [place] [address]- [facility] Attending Physician: Uche Urena Admitting Physician: [...] By Mouth, 2 times a day, # 180 tablet, 1 Refills, Maintenance, 08/20/19 16:14:00 EST, Tablet, [facility], 1 tablet By Mouth 2 times a day, 165, cm, 07/21/19 14:31:00 EST, Height, 91, kg, 06/19/19 16:55:00 EST, Dry Weight Start Date: 08/20/19 Status: Ordered FREESTYLE SHELLIE LITE See Instructions, # 100 each, Refills 10 Tot. Refills 10, USE TO CHECK BLOOD SUGARS 3 TIMES A DAY WITH MEALS PLUS 1 MORE TIME NEEDED FOR SYMPTOMS, [facility] Start Date: 04/21/19 Status: Ordered FREESTYLE LANCETS 100CT See Instructions, # 100 each, Refills 11 Tot. Refills 11, USE DIRECTED FOR TYPE 1 DIABETES, KEVIN,[facility] Start Date: 03/18/19 Status: Ordered gabapentin 300 mg oral capsule 300 mg, 1, capsule, By Mouth, 2 times a day, # 60 capsule, Refills 11, Tot. Refills 11, Maintenance, 07/28/19 15:59:00 EST, Route to Pharmacy Electronically, [facility], 165, cm, 07/21/19 14:31:00 EST, Height, 91, kg, 06/19/19 16:55:00 EST, Dry We... Start Date: 07/28/19 Stop Date: 1/7/21 Status: Ordered Lantus Solostar Pen 100 units/mL subcutaneous solution = 15 units, Subcutaneous Injection, Daily at bedtime, # 9 mL, 11 Refills, Maintenance, 04/17/19 11:12:31 EDT, Injection Start Date: 04/17/19 Stop Date: 04/11/20 Status: Ordered Lipitor 80 mg oral tablet = 80 mg, By Mouth, Daily at bedtime, 0 Refills, Maintenance, 01/29/19 14:52:58 EDT, Tablet Start Date: 01/29/19 Status: Ordered Toprol XL 25 mg oral tablet, extended release 25 mg, 1, tablet, By Mouth, Daily in AM, # 30 tablet, Refills 5, Tot. Refills 5, Maintenance, 08/28/19 12:08:00 EST, Route to Pharmacy Electronically, [facility], 165, cm, 07/21/19 14:31:00 EST, Height, 91, kg, 06/19/19 16:55:00 EST, Dry Weight Start Date: 08/28/19 Stop Date: 02/24/20 Status: Ordered Problem List Condition Effective Dates Status Health Status Inform ant Diabetic peripheral neuropathy(Confirmed) Active Diabetic nephropathy(Confirmed) Active Dysphagia(Confirmed) Active Hallucinations(Confirmed) Active Hypertension(Confirmed) Active Anxiety and depression(Confirmed) Active Care coordination N-CP C are Management Bre Skinner, CC [phone](Confirmed) 02/02/19 Active Thrombocytopenia(Confirmed) Active Type 1 diabetes mellitus(Confirmed) Active Social History Social History Type Response Smoking Status Never (less than 100 in lifetime) entered on: 06/19/19 Sex
--- OUTSIDE RECORDS SUMMARY | 2023-12-10 00:46 | XMS_ITS | Continuity of Care Document ---
Author Organization [facility] Address [address] [place] [address]- Care Team Providers Care Gas Operations Analyst Name Role Phone Claire Trujillo MD Primary Care Physician [place] [facility] [place] 05/17/22 - 06/21/[address] [address]- Attending Physician: Siddhartha Booth MD Allergies, Adverse Reactions, Alerts Substance Reaction Severity Status metFORMIN 1 GI symptoms Active 1GI intolreance Immunizations Given and Recorded Vaccine Date Status Refusal Reason SARS-CoV-2 mRNA (xmmfsui-ijvl-tawsm) vax 03/03/22 Given SARS-CoV-2 mRNA (vpuoxeq-jtby-vadwp) vax 08/27/21 Given SARS-CoV-2 (COVID-19) mRNA BNT-162b2 [...] 05/04/22 10:23:00 EDT, Route to Pharmacy Electronically, [facility]... Start Date: 05/04/22 Status: Ordered bed [...] Moderate, Apply to legs for diabetic neuropathy. Grenadian sig, # 60 Gm, 1 Refills, Maintenance, 06/06/22 9:44:00 EST, Cream, [facility], Partial fill upon patient request if [...] Type II DM, ICD10 E11.65. Fax to [address] [place] [address], 05/04/22 14:01:00 EDT, Supply Start Date: 05/04/22 [...] E10.42 duration: 99 weeks. Fax to Cheryl ([facility]), 05/11/21 11:23:00 EDT, Supply Start Date: 05/11/21 Status: Ordered Home blood pressure monitor Home blood pressure monitor, See Instructions, # 1 each, Refills 0, Tot. Refills 0, Maintenance, ICD 10 I95.1; E11. 43 ALEIDA: 99 [facility], 05/25/22 12:53:00 EST, Supply Start Date: 05/25/22 Status: Ordered HumaLOG KwikPen 100 units/mL injectable solution See Instructions, Mealtime insulin; dose according to finger stick before meals FS 100-199: 5 unitsFS: 200-249: 6 units FS 250-299: 7 units FS above 300: 8 units, # 15 mL, 11 Refills, 06/01/22 10:46:00 EST, [facility]., 165, cm... Start Date: 06/01/22 Status: Ordered Jardiance 25 mg oral tablet 1 tablet = 25 mg, By Mouth, Daily in AM, # 30 tablet, 5 Refills, Maintenance, 06/01/22 10:45:00 EST, [facility], Partial fill upon patient request if the prescription is for a schedule II opioid drug., 165, cm, 06/01/22 10:18:00 EST, H... Start Date: 06/01/22 Stop Date: 11/28/22 Status: Ordered Lantus Solostar Pen 100 units/mL subcutaneous solution = 12 units, Subcutaneous Injection, Daily at bedtime, Insulina de 24 horas., # 6 mL, 11 Refills, Maintenance, 06/01/22 10:46:00 EST, Injection, [facility]., 165, cm, 06/01/22 10:18:00 EST, Height, 84.2, kg, 05/21/22 0:51:00 EDT, Dry Weight Start Date: 06/01/22 Stop Date: 05/27/23 Status: Ordered Lipitor 80 mg oral tablet 1 tablet = 80 mg, By Mouth, Daily at bedtime, para colesterol / proteger el paty/ arterias tapadas en el paty, # 30 tablet, 11 Refills, Maintenance, 05/04/22 10:23:00 EDT, Tablet, [facility], Partial fill upon patient request, 16... [...] 05/04/22 10:27:00 EDT, Route to Pharmacy Electronically, [facility]... Start Date: 05/04/22 Status: Ordered raised [...] 93kg, 11/21/21 16:40:00 EDT, sent to [facility]. Start Date: 11/21/21 Status: Ordered shower [...] 05/26/22 14:26:00 EST, Route to Pharmacy Electronically, [facility], Partial fill upon patien... Start [...] coordination N-CP Care Management Bre Skinner, CC [phone] Confirmed 02/02/19 Active Thrombocytopenia Confirmed Active TIA (transient ischemic attack) Confirmed Active T2DM (type 2 diabetes mellitus) Confirmed Active Social History Social History Type Response Smoking Status Never (less than 100 in lifetime) entered on: 06/19/19 Sex Patient Care team information Care Team Personnel Name: Leanne Vásquez RN Position: [facility] RN Member Role: Primary Care Nurse Name: Sorin Moser RN Position: [facility] RN Member Role: Primary Care Nurse Name: Brandi Wei RN Position: [facility] RN Member Role: Primary Care Nurse Name: Ya Collier RN Position: [facility] PCO RN Member Role: Primary Care Nurse Name: Valentina Leiva RN Position: [facility] SN RN Member Role: Primary Care Nurse Name: Macarena Bedolla Position: [facility] Outreach Member Role: Lifetime Consulting Physician Name: Abigail Nuno RN Position: [facility] Onco RN Member Role: Primary Care Nurse Name: Claire Trujillo MD Position: [facility] Primary Care Physician Member Role: PCP Address: Address: [address] [place] [address] Name: Heidi Dao Position: [facility] RN Member Role: Primary Care Nurse Care Team Related Persons Name: JOEL BRIZUELA Address: home [address] [place] [address], [place] [address]
--- OUTSIDE RECORDS SUMMARY | 2023-12-10 00:46 | XMS_ITS | Continuity of Care Document ---
Author Organization [facility] Address [address] [place] [address]- Care Team Providers Care Hammer Mill Operator Name Role Phone Cassandra WHITE, Claire Primary Care Physician [phone] Encounter [facility] Date(s): 11/01/20 - 12/01/[address] [address]- Allergies, Adverse Reactions, Alerts Substance Reaction Severity [...] 1 Refills, Soft Stop, 06/30/20 18:54:00 EST, [facility], 163, cm, 04/21/20 22:04:00 EDT, Height, [...] 5 Refills, Maintenance, 08/18/20 16:04:00 EST, Tablet, [facility], 1 tablet By Mouth 2 times a day, 163, cm, 04/21/20 22:04:00 EDT, Height, 91, kg,04/19/20 23:16:00 EDT, Dry Weight Start Date: 08/18/20 Status: Ordered Diabetic Shoes with Inserts Diabetic Shoes with Inserts, See Instructions, # 2 each, Refills 0, Tot. Refills 0, Maintenance, Wear for diabetic foot care. Diagnosis: Type II DM, ICD10 E11.65. Fax to [facility], 10/28/20 14:47:00 EDT, Supply Start Date: 10/28/20 Status: Ordered FLUoxetine 20 mg oral capsule 1, capsule, By Mouth, Daily, # 90 capsule, Refills 3, Tot. Refills 3, Maintenance, 11/05/19 18:38:00 EDT, Route to Pharmacy Electronically, [facility], 165, cm, 07/21/19 14:31:00 EST, Height, 91,kg, 06/19/19 16:55:00 EST, Dry Weight Start Date: 11/05/19 Stop Date: 10/30/20 Status: Ordered FREESTYLE SHELLIE LITE See Instructions, # 100 each, Refills 10 Tot. Refills 10, USE TO CHECK BLOOD SUGARS 3 TIMES A DAY WITH MEALS PLUS 1 MORE TIME NEEDED FOR SYMPTOMS, [facility] Start Date: 04/21/19 Status: Ordered [...] Maintenance, 08/18/2115:13:00 EST, Route to Pharmacy Electronically, [facility], 163, cm, 04/21/20 22:04:00 EDT, Height, [...] DAY, # 15 mL, 11 Refills, Maintenance, [facility], 16... Start Date: 10/25/20 Status: Ordered [...] weight: 91kg, 08/26/20 16:56:00 EST, sent to [facility] Start Date: 08/26/20 Status: Ordered shower bars [...] 08/04/20 14:13:00 EST, Route to Pharmacy Electronically, [facility], 163, cm, 04/21/20 22:04:00 EDT, Height, [...] BHN-BHCP C are Management Bre Skinner, CC [phone](Confirmed) 02/02/19 Active Thrombocytopenia(Confirmed) Active Type 1 diabetes mellitus(Confirmed) Active Social History Social History Type Response Smoking Status Never (less than 100 in lifetime) entered on: 06/19/19 Sex
--- OUTSIDE RECORDS SUMMARY | 2023-12-10 00:46 | XMS_ITS | Continuity of Care Document ---
Author Organization [facility] Address [address] [place] [address]- Care Team Providers Care Installer Technician Name Role Phone Claire Trujillo MD Primary Care Physician [place] [facility] [place]25[place]23 - 07/25/[address] [address]- Allergies, Adverse Reactions, Alerts Substance Reaction Severity Status metFORMIN 1 GI symptoms Active 1GI intolreance Immunizations Given and Recorded Vaccine Date Status Refusal Reason SARS-CoV-2 mRNA (urjjlds-fggz-kfymu) vax 03/03/22 Given SARS-CoV-2 mRNA (jqkgvac-qpwg-qmqrq) vax 08/27/21 Given SARS-CoV-2 (COVID-19) mRNA BNT-162b2 [...] 0 Refills, Maintenance, 11/27/22 11:10:00 EDT, Lotion, [facility] fill upon patient request [...] 05/02/23 16:08:00 EDT, Route to Pharmacy Electronically, [facility], Partial fill upon patient request if the pr... Start Date: 05/02/23 Stop Date: 07/01/23 Status: Ordered Flomax 0.4 mg oral capsule 0.8 mg, 2, capsule, By Mouth, Daily, # 180 capsule, Refills 1, Tot. Refills 1, Maintenance, 07/19/23 13:01:00 EST, Route to Pharmacy Electronically, [facility]/pharmacy #[id number], Partial fill upon patient request if the [...] E10.42 duration: 99 weeks. Fax to Cheryl [facility], 05/11/21 11:23:00 EDT, Supply Start Date: 05/11/21 Status: Ordered Home blood pressure monitor Home blood pressure monitor, See Instructions, # 1 each, Refills 0, Tot. Refills 0, Maintenance, ICD 10 I95.1; E11. 43 ALEIDA: 99 [facility], 05/25/22 12:53:00 EST, Supply Start Date: 05/25/22 Status: Ordered HumaLOG KwikPen 100 units/mL injectable solution See Instructions, Mealtime insulin; dose according to finger stick before meals FS 100-199: 5 unitsFS: 200-249: 6 units FS 250-299: 7 units FS above 300: 8 units, # 15 mL, 1 Refills, 05/15/23 10:16:00 EDT, [facility], No [facility]ur... Start Date: 05/15/23 Status: Ordered isosorbide mononitrate 30 mg oral tablet, extended release 30 mg, 1, tablet, By Mouth, Daily at bedtime, Para el paty. Noelle antes de acostarse., # 30 tablet, Refills 3, Tot. Refills 3, Maintenance, 07/19/23 13:01:00 EST, Route to Pharmacy Electronically, [facility]/pharmacy #[id number], Partial fill upon patient reque... Start Date: 07/19/23 Stop Date: 11/16/23 Status: Ordered Jardiance 25 mg oral tablet 1 tablet = 25 mg, By Mouth, Daily in AM, # 30 tablet, 5 Refills, Maintenance, 07/19/23 13:00:00 EST, [facility]/pharmacy #[id number], Partial fill upon [...] 07/13/24 13:01:00 EST, 07/19/23 13:01:00 EST, Injection, [facility]/pharmacy #[id number], increase in dose, 165, cm, 04/16/23 8:59:00 EDT, Heig... Start Date: 07/19/23 Stop Date: 07/13/24 Status: Ordered Lantus Solostar Pen 100 units/mL subcutaneous solution = 23 units, Subcutaneous Injection, Daily at bedtime, Insulina de 24 horas., # 15 mL, 1 Refills, Maintenance, 04/26/24 16:08:00 EDT, Injection, [facility], No insurance (Medicare not active [...] 07/19/23 13:01:00 EST, Route to Pharmacy Electronically, [facility]/pharmacy #[id number],... Start Date: 07/19/23 Stop Date: 07/13/24 Status: Ordered morphine 15 mg/8 to 12 hr oral tablet, extended release 1 tablet = 15 mg, By Mouth, Every 12 hours, # 56 tablet, 0 Refills, Maintenance, 07/05/23 17:04:00 EST, ER Tablet, [facility]/pharmacy #[id number], Partial fill upon [...] Acute 08/02/23 17:05:00 EST, 07/05/23 17:05:00 EST, [facility]/pharmacy #[id number], Partial fill upon [...] 16:40:00 EDT, sent to [facility] Start Date: 11/21/21 Status: Ordered shower bars [...] Team Personnel Name: Sorin Moser RN Position: [facility] RN Member Role: Primary Care Nurse Name: Ya Wilson RN Position: [facility] RN Member Role: Primary Care Nurse Name: Brandi Wei RN Position: [facility] RN Member Role: Primary Care Nurse Name: Valentina Leiva RN Position: [facility] SN RN Member Role: Primary Care Nurse Name: Macarena Bedolla Position: [facility] Outreach Member Role: Lifetime Consulting Physician Name: Abigail Nuno RN Position: [facility] Onco RN Member Role: Primary Care Nurse Name: Claire Trujillo MD Position: [facility] Physician - Primary Care Member Role: PCP Address: Address: [address] [place] [address] Name: Heidi Dao Position: [facility] RN Member Role: Primary Care Nurse Care Team Related Persons Name: JOEL BRIZUELA Address: home [address] [place] [address], [place] [address]
--- OUTSIDE RECORDS SUMMARY | 2023-12-10 00:46 | XMS_ITS | Continuity of Care Document ---
Author Organization [facility] Address [address] [place] [address]- Care Team Providers Care Rotational Moulding Operator Name Role Phone Claire Trujillo MD Primary Care Physician [phone] Encounter [facility] [place] Date(s): 01/20/20 - 02/19/[address] [address]- [facility] Allergies, Adverse Reactions, Alerts Substance Reaction Severity [...] 5 Refills, Maintenance, 01/26/20 15:36:00 EDT, Tablet, [facility]/pharmacy #[id number], 1 tablet By Mouth 2 times a day, 165, cm, 01/12/20 16:41:00 EDT, Height, 91,kg, 06/19/19 16:55:00 EST, Dry Weight Start Date: 01/26/20 Status: Ordered FLUoxetine 20 mg oral capsule 1, capsule, By Mouth, Daily, # 90 capsule, Refills 3, Tot. Refills 3, Maintenance, 11/05/19 18:38:00 EDT, Route to Pharmacy Electronically, [facility], 165, cm, 07/21/19 14:31:00 EST, Height, [...] 07/28/19 15:59:00 EST, Route to Pharmacy Electronically, [facility], 165, cm, 07/21/19 14:31:00 EST, Height, 91, kg, 06/19/19 16:55:00 EST, Dry We... Start Date: 07/28/19 Stop Date: 07/22/20 Status: Ordered Lantus Solostar Pen 100 units/mL [...] 11/05/19 18:37:00 EDT, Route to Pharmacy Electronically, [facility], 165, cm, 07/21/19 14:31:00 EST, Height, [...] 02/03/20 10:00:00 EDT, Route to Pharmacy Electronically, [facility], 165, cm, 01/12/20 16:41:00 EDT, [...] BHN-BHCP C are Management Bre Skinner, CC [phone](Confirmed) 02/02/19 Active Thrombocytopenia(Confirmed) Active Type 1 diabetes mellitus(Confirmed) Active Social History Social History Type Response Smoking Status Never (less than 100 in lifetime) entered on: 06/19/19 Sex
--- OUTSIDE RECORDS SUMMARY | 2023-12-10 00:46 | XMS_ITS | Continuity of Care Document ---
Author Organization [facility] Address [address] [place] [address]- Care Team Providers Care Radiology Special Procedure Tech Name Role Phone Claire Trujillo MD Primary Care Physician [place] [facility] [place] 07/02/23 - 08/01/[address] [address]- Allergies, Adverse Reactions, Alerts Substance Reaction Severity Status metFORMIN 1 GI symptoms Active 1GI intolreance Immunizations Given and Recorded Vaccine Date Status Refusal Reason SARS-CoV-2 mRNA (jcrjnlt-uwpu-syruu) vax 03/03/22 Given SARS-CoV-2 mRNA (jfccheo-ynln-dwyvu) vax 08/27/21 Given SARS-CoV-2 (COVID-19) mRNA BNT-162b2 [...] Refills, Maintenance, 11/27/22 11:10:00 EDT, [facility], Partial fill upon patient request [...] 16:08:00 EDT, Route to Pharmacy Electronically, [facility], Partial fill upon patient request if the pr... Start Date: 05/02/23 Stop Date: 07/01/23 Status: Ordered Flomax 0.4 mg oral capsule 0.8 mg, 2, capsule, By Mouth, Daily, # 180 capsule, Refills 1, Tot. Refills 1, Maintenance, 07/19/23 13:01:00 EST, Route to Pharmacy Electronically, [facility]/pharmacy #[id number], Partial fill upon patient request if the [...] 99 weeks. Fax to Cheryl [facility], 05/11/21 11:23:00 EDT, Supply Start Date: 05/11/21 Status: Ordered Home blood pressure monitor Home blood pressure monitor, See Instructions, # 1 each, Refills 0, Tot. Refills 0, Maintenance, ICD 10 I95.1; E11. 43 ALEIDA: 99 [facility], 05/25/22 12:53:00 EST, Supply Start Date: 05/25/22 Status: Ordered HumaLOG KwikPen 100 units/mL injectable solution See Instructions, Mealtime insulin; dose according to finger stick before meals FS 100-199: 5 unitsFS: 200-249: 6 units FS 250-299: 7 units FS above 300: 8 units, # 15 mL, 1 Refills, 05/15/23 10:16:00 EDT, [facility], No [facility]ur... Start Date: 05/15/23 Status: Ordered isosorbide mononitrate 30 mg oral tablet, extended release 30 mg, 1, tablet, By Mouth, Daily at bedtime, Para el paty. Noelle antes de acostarse., # 30 tablet, Refills 3, Tot. Refills 3, Maintenance, 07/19/23 13:01:00 EST, Route to Pharmacy Electronically, [facility]/pharmacy #[id number], Partial fill upon patient reque... Start Date: 07/19/23 Stop Date: 11/16/23 Status: Ordered Jardiance 25 mg oral tablet 1 tablet = 25 mg, By Mouth, Daily in AM, # 30 tablet, 5 Refills, Maintenance, 07/19/23 13:00:00 EST, [facility]/pharmacy #[id number], Partial fill upon patient request if [...] 07/13/24 13:01:00 EST, 07/19/23 13:01:00 EST, Injection, [facility]/pharmacy #[id number], increase in dose, 165, cm, 04/16/23 8:59:00 EDT, Heig... Start Date: 07/19/23 Stop Date: 07/13/24 Status: Ordered Lantus Solostar Pen 100 units/mL subcutaneous solution = 23 units, Subcutaneous Injection, Daily at bedtime, Insulina de 24 horas., # 15 mL, 1 Refills, Maintenance, 04/26/24 16:08:00 EDT, Injection, [facility], No insurance (Medicare not active until [...] 07/19/23 13:01:00 EST, Route to Pharmacy Electronically, [facility]/pharmacy #[id number],... Start Date: 07/19/23 Stop Date: 07/13/24 Status: Ordered morphine 15 mg/8 to 12 hr oral tablet, extended release 1 tablet = 15 mg, By Mouth, Every 12 hours, # 56 tablet, 0 Refills, Maintenance, 07/05/23 17:04:00 EST, ER Tablet, [facility]/pharmacy #[id number], Partial fill upon patient request if [...] Acute 08/02/23 17:05:00 EST, 07/05/23 17:05:00 EST, [facility]/pharmacy #[id number], Partial fill upon patient request ifthe [...] weight: 93kg, 11/21/21 16:40:00 EDT, sent to [facility] Start Date: 11/21/21 Status: Ordered shower [...] Care Nurse Name: Ya Wilson RN Position: [facility] RN Member [...] Claire Trujillo MD Position: [facility] Physician - Primary Care Member Role: PCP Address: Address: [address] [place] [address] Name: Heidi Dao Position: [facility] RN Member Role: Primary Care Nurse Care Team Related Persons Name: JOEL BRIZUELA Address: home [address] [place] [address], [place] [address]
--- OUTSIDE RECORDS SUMMARY | 2023-12-10 00:47 | XMS_ITS | Continuity of Care Document ---
Author Organization [facility] Address [address] [place] [address]- Care Team Providers Care Pourer Off Name Role Phone Claire Trujillo MD Primary Care Physician Encounter [facility] Date(s): 04/12/20 - 05/12/[address] [address]- [facility] Allergies, Adverse Reactions, Alerts Substance Reaction [...] at 300; max 12/day, # 6 mL, 2 Refills, Maintenance, 05/07/20 13:08:00 EDT, Injection, [facility], 163, cm, 04/21/20 22:04:00 EDT, Height, 91, kg, 04/19/20 23:16:00 EDT, Dry Weight Start Date: 05/07/20 Status: Ordered Alcohol Pads See Instructions, # [...] 0 Refills, Soft Stop, 03/30/20 18:04:00 EDT, [facility], please direct refill requests to PCP (Claire Trujillo MD), 165, cm, 01/12/20 16:41:00 EDT, Height, 91, kg, 06/19/19 16:55:00 ES... Start Date: 03/30/20 Status: Ordered FLUoxetine 20 mg oral capsule 1, capsule, By Mouth, Daily, # 90 capsule, Refills 3, Tot. Refills 3, Maintenance, 11/05/19 18:38:00 EDT, Route to Pharmacy Electronically, [facility], 165, cm, 07/21/19 14:31:00 EST, Height, 91,kg, 06/19/19 16:55:00 EST, Dry Weight Start Date: 11/05/19 Stop Date: 10/30/20 Status: Ordered FREESTYLE SHELLIE LITE See Instructions, # 100 each, Refills 10 Tot. Refills 10, USE TO CHECK BLOOD SUGARS 3 TIMES A DAY WITH MEALS PLUS 1 MORE TIME NEEDED FOR SYMPTOMS, [facility] Start Date: 04/21/19 Status: Ordered FREESTYLE LANCETS 100CT See Instructions, # 100 each, Refills 11 Tot. Refills 11, USE DIRECTED FOR TYPE 1 DIABETES, KEVIN,[facility] Start Date: 03/18/19 Status: Ordered [...] tablet, 11 Refills, Maintenance, 02/23/20 12:51:00 EDT, [facility], 165, cm, 01/12/20 16:41:00 EDT, Height, 91, kg, 06/19/19 16:55:00 EST, Dry Weight Start Date: 02/23/20 Stop Date: 02/17/21 Status: Ordered Lantus Solostar Pen 100 units/mL subcutaneous solution = 15 units, Subcutaneous Injection, Daily at bedtime, # 9 mL, 2 Refills, Maintenance, 05/07/20 13:08:00 EDT, Injection, [facility], 163, cm, 04/21/20 22:04:00 EDT, [...] 11/05/19 18:37:00 EDT, Route to Pharmacy Electronically, [facility], 165, cm, 07/21/19 14:31:00 EST, [...] 02/03/20 10:00:00 EDT, Route to Pharmacy Electronically, [facility], 165, cm, 01/12/20 16:41:00 EDT, Height, [...] BHN-BHCP C are Management Bre Skinner, CC [phone](Confirmed) 02/02/19 Active Thrombocytopenia(Confirmed) Active Type 1 diabetes mellitus(Confirmed) Active Social History Social History Type Response Smoking Status Never (less than 100 in lifetime) entered on: 06/19/19 Sex
--- OUTSIDE RECORDS SUMMARY | 2023-12-10 00:47 | XMS_ITS | Continuity of Care Document ---
Author Organization [facility] Address [address] [place] [address]- Care Team Providers Care Web Site Specialist Name Role Phone Claire Trujillo MD Primary Care Physician Encounter [facility] [place] Date(s): 07/23/20 - 08/22/[address] [address] Allergies, Adverse Reactions, Alerts [...] 5 Refills, Maintenance, 08/18/20 16:04:00 EST, Tablet, [facility], 1 tablet By Mouth 2 times a day, 163, cm, 04/21/20 22:04:00 EDT, Height, 91, kg,04/19/20 23:16:00 EDT, Dry Weight Start Date: 08/18/20 Status: Ordered FLUoxetine 20 mg oral capsule 1, capsule, By Mouth, Daily, # 90 capsule, Refills 3, Tot. Refills 3, Maintenance, 11/05/19 18:38:00 EDT, Route to Pharmacy Electronically, [facility], 165, cm, 07/21/19 14:31:00 EST, [...] Maintenance, 08/18/2115:13:00 EST, Route to Pharmacy Electronically, [facility], 163, cm, 04/21/20 22:04:00 EDT, Height, 91, kg, 04/19/20 23:16:00 EDT, Dry Weight Start Date: 08/18/20 Status: Ordered Humalog 100 u/ml subcutaneous injection See Instructions, take before meals (three times a day) per sliding scale 4 units if over 120; 6 at200; 8 at 300; 12 if 400 max 60 units/ day, # 6 mL, 2 Refills, Maintenance, 07/19/20 13:40:00 EST, [facility], d/c Ademlog;, 163, cm, 04/21/20... Start Date: 07/19/20 Status: Ordered isosorbide mononitrate 30 mg oral tablet, extended release 1 tablet = 30 mg, By Mouth, Daily in AM, # 30 tablet, 11 Refills, Maintenance, 02/23/20 12:51:00 EDT, [facility], 165, cm, 01/12/20 16:41:00 EDT, Height, 91, kg, 06/19/19 16:55:00 EST, Dry Weight Start Date: 02/23/20 Stop Date: 02/17/21 Status: Ordered Lantus Solostar Pen 100 units/mL subcutaneous solution = 15 units, Subcutaneous Injection, Daily at bedtime, # 9 mL, 2 Refills, Maintenance, 05/07/20 13:08:00 EDT, Injection, [facility], 163, cm, 04/21/20 22:04:00 EDT, Height, 91, kg, 04/19/20 23:16:00 EDT, Dry Weight Start Date: 05/07/20 Stop Date: 08/05/20 Status: Ordered Lipitor 80 mg oral tablet 1 tablet = 80 mg, By Mouth, Daily at bedtime, # 90 tablet, 3 Refills, Maintenance, 06/09/20 13:06:00 EST, Tablet, [facility], Partial fill upon patient request, 163, cm, 04/21/20 22:04:00 EDT, Height, 91, kg, 04/19/20 23:16:00 EDT, Dry Weight Start Date: 06/09/20 Stop Date: 06/04/21 Status: Ordered lisinopril 10 mg oral tablet 1, tablet, By Mouth, Daily, # 90 tablet, Refills 3, Tot. Refills 3, Maintenance, 11/05/19 18:37:00 EDT, Route to Pharmacy Electronically, [facility], 165, cm, 07/21/19 14:31:00 EST, [...] 08/04/20 14:13:00 EST, Route to Pharmacy Electronically, [facility], 163, cm, 04/21/20 22:04:00 EDT, [...] BHN-BHCP C are Management Bre Skinner, CC [phone](Confirmed) 02/02/19 Active Thrombocytopenia(Confirmed) Active Type 1 diabetes mellitus(Confirmed) Active Social History Social History Type Response Smoking Status Never (less than 100 in lifetime) entered on: 06/19/19 Sex
--- OUTSIDE RECORDS SUMMARY | 2023-12-10 00:47 | XMS_ITS | Continuity of Care Document ---
Author Organization [facility] Address [address] [place] [address]- Care Team Providers Care Patternmaker Metal Name Role Phone Claire Trujillo MD Primary Care Physician [phone] [place] [facility] [place] Date(s): 02/24/20 - 03/25/[address] [address]- [facility] Allergies, Adverse Reactions, Alerts [...] 11/05/19 18:38:00 EDT, Route to Pharmacy Electronically, [facility], 165, cm, 07/21/19 14:31:00 EST, Height, 91,kg, 06/19/19 16:55:00 EST, Dry Weight Start Date: 11/05/19 Stop Date: 10/30/20 Status: Ordered FREESTYLE SHELLIE LITE See Instructions, # 100 each, Refills 10 Tot. Refills 10, USE TO CHECK BLOOD SUGARS 3 TIMES A DAY WITH MEALS PLUS 1 MORE TIME NEEDED FOR SYMPTOMS, [facility] Start Date: 04/21/19 Status: Ordered FREESTYLE LANCETS 100CT See Instructions, # 100 each, Refills 11 Tot. Refills 11, USE DIRECTED FOR TYPE 1 DIABETES, KEVIN,[facility] Start Date: 03/18/19 Status: Ordered Freestyle [...] 07/28/19 15:59:00 EST, Route to Pharmacy Electronically, [facility], 165, cm, 07/21/19 14:31:00 EST, Height, 91, kg, 06/19/19 16:55:00 EST, Dry We... Start Date: 07/28/19 Stop Date: 07/22/20 Status: Ordered isosorbide mononitrate 30 mg oral tablet, extended release 1 tablet = 30 mg, By Mouth, Daily in AM, # 30 tablet, 11 Refills, Maintenance, 02/23/20 12:51:00 EDT, [facility], 165, cm, 01/12/20 16:41:00 EDT, Height, [...] 11/05/19 18:37:00 EDT, Route to Pharmacy Electronically, [facility], 165, cm, 07/21/19 14:31:00 EST, Height, [...] 02/03/20 10:00:00 EDT, Route to Pharmacy Electronically, [facility], 165, cm, 01/12/20 16:41:00 EDT, Height, [...] N-CP C are Management Bre Skinner, CC [phone](Confirmed) 02/02/19 Active Thrombocytopenia(Confirmed) Active Type 1 diabetes mellitus(Confirmed) Active Social History Social History Type Response Smoking Status Never (less than 100 in lifetime) entered on: 06/19/19 Sex
--- OUTSIDE RECORDS SUMMARY | 2023-12-10 00:47 | XMS_ITS | Continuity of Care Document ---
Author Organization [facility] Address [address] [place] [address]- Care Team Providers Care Chair Name Role Phone Claire Trujillo MD Primary Care Physician [phone] Encounter [facility] Date(s): 01/26/20 - 02/25/[address] [address]- [facility] Allergies, Adverse Reactions, Alerts Substance Reaction [...] 5 Refills, Maintenance, 01/26/20 15:36:00 EDT, Tablet, [facility]/pharmacy #[id number], 1 tablet By Mouth 2 times a day, 165, cm, 01/12/20 16:41:00 EDT, Height, 91,kg, 06/19/19 16:55:00 EST, Dry Weight Start Date: 01/26/20 Status: Ordered FLUoxetine 20 mg oral capsule 1, capsule, By Mouth, Daily, # 90 capsule, Refills 3, Tot. Refills 3, Maintenance, 11/05/19 18:38:00 EDT, Route to Pharmacy Electronically, [facility], 165, cm, 07/21/19 14:31:00 EST, [...] 07/28/19 15:59:00 EST, Route to Pharmacy Electronically, [facility], 165, cm, 07/21/19 14:31:00 EST, Height, 91, kg, 06/19/19 16:55:00 EST, Dry We... Start Date: 07/28/19 Stop Date: 07/22/20 Status: Ordered isosorbide mononitrate 30 mg oral tablet, extended release 1 tablet = 30 mg, By Mouth, Daily in AM, # 30 tablet, 11 Refills, Maintenance, 02/23/20 12:51:00 EDT, [facility], 165, cm, 01/12/20 16:41:00 EDT, Height, [...] 11/05/19 18:37:00 EDT, Route to Pharmacy Electronically, [facility], 165, cm, 07/21/19 14:31:00 EST, Height, [...] 02/03/20 10:00:00 EDT, Route to Pharmacy Electronically, [facility], 165, cm, 01/12/20 16:41:00 EDT, Height, [...] BHN-BHCP C are Management Bre Skinner, CC [phone](Confirmed) 02/02/19 Active Thrombocytopenia(Confirmed) Active Type 1 diabetes mellitus(Confirmed) Active Social History Social History Type Response Smoking Status Never (less than 100 in lifetime) entered on: 06/19/19 Sex
--- OUTSIDE RECORDS SUMMARY | 2023-12-10 00:47 | XMS_ITS | Continuity of Care Document ---
Author Organization [facility] Address [address] [place] [address]- Care Team Providers Care Gang Punch Operator Name Role Phone Claire Trujillo MD Primary Care Physician [phone] Encounter [facility] [place] Date(s): 09/04/22 - 11/16/[address] [address]- Attending Physician: Not on Staff, Attending MD Allergies, Adverse Reactions, Alerts Substance Reaction Severity Status metFORMIN 1 GI symptoms Active 1GI intolreance Immunizations Given and Recorded Vaccine Date Status Refusal Reason SARS-CoV-2 mRNA (ahrhmui-avid-ibzuo) vax 03/03/22 Given SARS-CoV-2 mRNA (yxafseg-kmux-bwani) vax 08/27/21 Given SARS-CoV-2 (COVID-19) mRNA BNT-162b2 [...] 05/04/22 10:23:00 EDT, Route to Pharmacy Electronically, [facility]... Start Date: 05/04/22 Status: Ordered bed [...] Moderate, Apply to legs for diabetic neuropathy. Zambian sig, # 60 Gm, 1 Refills, Maintenance, 06/06/22 9:44:00 EST, Cream, [facility], Partial fill upon patient request [...] 10/16/22 13:34:00 EDT, Route to Pharmacy Electronically, [facility], Partial fill upon patient request [...] E10.42 duration: 99 weeks. Fax to Cheryl ([facility]), 05/11/21 11:23:00 EDT, Supply Start Date: [...] 15 mL, 11 Refills, 06/01/22 10:46:00 EST, [facility] 165, cm... Start Date: 06/01/22 Status: Ordered Jardiance 25 mg oral tablet 1 tablet = 25 mg, By Mouth, Daily in AM, # 30 tablet, 5 Refills, Maintenance, 11/08/22 15:44:00 EDT, [facility], Partial fill upon patient request if the prescription is for a schedule II opioid drug., 165, cm, 09/04/22 13:02:00 EST, H... Start Date: 11/08/22 Stop Date: 05/07/23 Status: Ordered Lantus Solostar Pen 100 units/mL subcutaneous solution = 18 units, Subcutaneous Injection, Daily at bedtime, Insulina de 24 horas., # 15 mL, 11 Refills, Maintenance, 09/13/22 12:18:00 EST, Injection, [facility]., 165, cm, 09/04/22 13:02:00EST, Height, 84.2, kg, 05/21/22 0:51:00 EDT, Dry We... Start Date: 09/13/22 Stop Date: 09/08/23 Status: Ordered Lipitor 80 mg oral tablet 1 tablet = 80 mg, By Mouth, Daily at bedtime, para colesterol / proteger el paty/ arterias tapadas en el paty, # 30 tablet, 11 Refills, Maintenance, 05/04/22 10:23:00 EDT, Tablet, [facility], Partial fill upon patient request, [...] 05/04/22 10:27:00 EDT, Route to Pharmacy Electronically, [facility]... Start Date: 05/04/22 Status: Ordered [...] weight: 93kg, 11/21/21 16:40:00 EDT, sent to [facility]. Start Date: 11/21/21 Status: Ordered [...] Team Personnel Name: Sorin Moser RN Position: [facility] RN Member Role: Primary Care Nurse Name: Brandi Wei RN Position: [facility] RN Member Role: Primary Care Nurse Name: Ya Collier RN Position: [facility] PCO RN Member Role: Primary Care Nurse Name: Valentina Leiva RN Position: [facility] SN RN Member Role: Primary Care Nurse Name: Macarena Bedolla Position: [facility] Outreach Member Role: Lifetime Consulting Physician Name: Abigail Nuno RN Position: [facility] Onco RN Member Role: Primary Care Nurse Name: Claire Trujillo MD Position: [facility] Primary Care Physician Member Role: PCP Address: Address: [address] [place] [address]- Name: Heidi Dao Position: [facility] RN Member Role: Primary Care Nurse Care Team Related Persons Name: JOEL BRIZUELA Address: home [address] [place] [id number]
--- OUTSIDE RECORDS SUMMARY | 2023-12-10 00:47 | XMS_ITS | Continuity of Care Document ---
Author Organization [facility] Address [address] [place] [address]- Care Team Providers Care Senior Financial Reporting Analyst Name Role Phone Claire Trujillo MD Primary Care Physician [phone] Encounter [facility] [place] Date(s): 07/02/23 - 08/01/[address] [address]- Allergies, Adverse Reactions, Alerts Substance Reaction Severity Status metFORMIN 1 GI symptoms Active 1GI intolreance Immunizations Given and Recorded Vaccine Date Status Refusal Reason SARS-CoV-2 mRNA (crnknwd-iapv-bnoaz) vax 03/03/22 Given SARS-CoV-2 mRNA (qvearsp-sbym-tvufa) vax 08/27/21 Given SARS-CoV-2 (COVID-19) mRNA BNT-162b2 [...] 0 Refills, Maintenance, 11/27/22 11:10:00 EDT, Lotion[facility], [facility] [...] Route to Pharmacy Electronically, [facility], Partial fill upon patient request if the pr... Start Date: 05/02/23 Stop Date: 07/01/23 Status: Ordered Flomax 0.4 mg oral capsule 0.8 mg, 2, capsule, By Mouth, Daily, # 180 capsule, Refills 1, Tot. Refills 1, Maintenance, 07/19/23 13:01:00 EST, Route to Pharmacy Electronically, [facility]/pharmacy #[id number], Partial fill upon patient request if the [...] E10.42 duration: 99 weeks. Fax to Cheryl [facility], 05/11/21 11:23:00 EDT, Supply Start Date: 05/11/21 Status: Ordered Home blood pressure monitor Home blood pressure monitor, See Instructions, # 1 each, Refills 0, Tot. Refills 0, Maintenance, ICD 10 I95.1; E11. 43 ALEIDA: [facility] 12:53:00 EST, Supply Start Date: 05/25/22 Status: Ordered HumaLOG KwikPen 100 units/mL injectable solution See Instructions, Mealtime insulin; dose according to finger stick before meals FS 100-199: 5 unitsFS: 200-249: 6 units FS 250-299: 7 units FS above 300: 8 units, # 15 mL, 1 Refills, 05/15/23 10:16:00 EDT, [facility], No insur... Start Date: 05/15/23 Status: Ordered isosorbide mononitrate 30 mg oral tablet, extended release 30 mg, 1, tablet, By Mouth, Daily at bedtime, Para el paty. Noelle antes de acostarse., # 30 tablet, Refills 3, Tot. Refills 3, Maintenance, 07/19/23 13:01:00 EST, Route to Pharmacy Electronically, [facility]/pharmacy #[id number], Partial fill upon patient reque... Start Date: 07/19/23 Stop Date: 11/16/23 Status: Ordered Jardiance 25 mg oral tablet 1 tablet = 25 mg, By Mouth, Daily in AM, # 30 tablet, 5 Refills, Maintenance, 07/19/23 13:00:00 EST, [facility]/pharmacy #[id number], Partial fill upon patient request [...] 07/13/24 13:01:00 EST, 07/19/23 13:01:00 EST, Injection, [facility]/pharmacy #[id number], increase in dose, 165, cm, 04/16/23 8:59:00 EDT, Heig... Start Date: 07/19/23 Stop Date: 07/13/24 Status: Ordered Lantus Solostar Pen 100 units/mL subcutaneous solution = 23 units, Subcutaneous Injection, Daily at bedtime, Insulina de 24 horas., # 15 mL, 1 Refills, Maintenance, 04/26/24 16:08:00 EDT, Injection, [facility], No insurance (Medicare not [...] 07/19/23 13:01:00 EST, Route to Pharmacy Electronically, [facility]/pharmacy #[id number],... Start Date: 07/19/23 Stop Date: 07/13/24 Status: Ordered morphine 15 mg/8 to 12 hr oral tablet, extended release 1 tablet = 15 mg, By Mouth, Every 12 hours, # 56 tablet, 0 Refills, Maintenance, 07/05/23 17:04:00 EST, ER Tablet, [facility]/pharmacy #[id number], Partial fill upon patient request [...] Acute 08/02/23 17:05:00 EST, 07/05/23 17:05:00 EST, [facility]/pharmacy #[id number], Partial fill upon patient request [...] weight: 93kg, 11/21/21 16:40:00 EDT, sent to [facility] Start Date: 11/21/21 Status: Ordered [...] Team Personnel Name: Sorin Moser RN Position: [facility] RN Member Role: Primary Care Nurse Name: Ya Wilson RN Position: [facility] RN Member Role: Primary Care Nurse Name: Brandi Wei RN Position: [facility] RN Member Role: [...] Primary Care Member Role: PCP Address: Address: [address] [place] [address] Name: Heidi Dao Position: [facility] RN Member Role: Primary Care Nurse Care Team Related Persons Name: JOEL BRIZUELA Address: home [address] [place] [address], [place] [address]
--- OUTSIDE RECORDS SUMMARY | 2023-12-10 00:47 | XMS_ITS | Continuity of Care Document ---
Author Organization [facility] Address [address] [place] [address]- Care Team Providers Care Behavioral Analyst Name Role Phone Claire Trujillo MD Primary Care Physician [phone] Encounter [facility] Date(s): 06/01/20 - 07/01/[address] [address] Allergies, Adverse Reactions, Alerts Substance [...] PLUS 1 MORE TIME NEEDED FOR SYMPTOMS, [facility] Start Date: 04/21/19 Status: Ordered FREESTYLE LANCETS 100CT See Instructions, # 100 each, Refills 11 Tot. Refills 11, USE DIRECTED FOR TYPE 1 DIABETES, K[facility]IN[facility] Start Date: 03/18/19 Status: Ordered Freestyle [...] 07/28/19 15:59:00 EST, Route to Pharmacy Electronically, [facility], 165, cm, 07/21/19 14:31:00 EST, Height, [...] 11/05/19 18:37:00 EDT, Route to Pharmacy Electronically, [facility], 165, cm, 07/21/19 14:31:00 EST, Height, [...] 02/03/20 10:00:00 EDT, Route to Pharmacy Electronically, [facility], 165, cm, 01/12/20 16:41:00 EDT, Height, [...] BHN-CP C are Management Bre Skinner, CC [phone](Confirmed) 02/02/19 Active Thrombocytopenia(Confirmed) Active Type 1 diabetes mellitus(Confirmed) Active Social History Social History Type Response Smoking Status Never (less than 100 in lifetime) entered on: 06/19/19 Sex
--- OUTSIDE RECORDS SUMMARY | 2023-12-10 00:47 | XMS_ITS | Continuity of Care Document ---
Author Organization [facility] Address [address] [place] [address]- Care Team Providers Care Pattern Shop Supervisor Name Role Phone Claire Trujillo MD Primary Care Physician [phone] Encounter [facility] [place] Date(s): 05/18/21 - 06/17/[address] [address] Attending Physician: Uche Urena Admitting Physician: Uche [...] II DM, ICD10 E11.65. [facility]ax to [facility], 10/28/20 14:47:00 EDT, Supply Start Date: [...] PLUS 1 MORE TIME NEEDED FOR SYMPTOMS, [facility] Start Date: 04/21/19 Status: Ordered FREESTYLE LANCETS 100CT See Instructions, # 100 each, Refills 11 Tot. Refills 11, USE [facility]ED FOR TYPE 1 DIABETES, [facility]: 03/18[facility]19 Status: [...] 01/06/21 12:38:00 EDT, Route to Pharmacy Electronically, [facility], 163, cm, 01/03/21 10:40:00 EDT, Height, 91, kg, 04/19/20 23:16:00 EDT, Dry Weight Start Date: 01/06/21 Status: Ordered Hand Held Shower Head Hand Held Shower Head, See Instructions, # 1 each, Refills 0, Tot. Refills 0, Maintenance, diagnosis: diabetic neuropathy, T1DM. ICD10: E10.42 duration: 99 weeks. Fax to Cheryl ([facility]), 05/11/21 11:23:00 EDT, Supply Start Date: 05/11/21 Status: Ordered isosorbide mononitrate 60 mg oral tablet, extended release 60 mg, 1, tablet, By Mouth, Daily in AM, # 90 tablet, Refills 3, Tot. Refills 3, Maintenance, 01/03/21 10:57:00 EDT, Route to Pharmacy Electronically, [facility], Partial fill upon patient request if the prescription is for a schedule II opioid . Start Date: 01/03/21 Status: Ordered Jardiance 10 mg oral tablet 1 tablet, By Mouth, Daily in AM, # 30 tablet, 2 Refills, [facility], 164, cm, 03/02/21 8:40:00 EDT, Height, 87.5, kg, 02/10/21 9:00:00 EDT, Dry Weight Start Date: 06/08/21 Status: Ordered Lantus Solostar Pen 100 units/mL subcutaneous solution = 15 units, Subcutaneous Injection, Daily at bedtime, # 9 mL, 2 Refills, Maintenance, 05/07/20 13:08:00 EDT, Injection, [facility], 163, cm, 04/21/20 22:04:00 EDT, Height, 91, kg, 04/19/20 23:16:00 EDT, Dry Weight Start Date: 05/07/20 Stop Date: 08/05/20 Status: Ordered Lantus Solostar Pen 100 units/mL subcutaneous solution See Instructions, INJECT 15 UNITS SUBCUTANEOUSLY DAILY AT BEDTIME, # 15 mL, 2 Refills, [facility], 164, cm, 03/02/21 8:40:00 EDT, Height, 87.5, kg, 02/10/21 9:00:00 EDT, Dry Weight Start Date: 05/25/21 Status: Ordered Lipitor 80 mg oral tablet 1 tablet = 80 mg, By Mouth, Daily at bedtime, # 90 tablet, 3 Refills, Maintenance, 03/07/21 9:07:00EDT, Tablet, [facility]/pharmacy #[id number], Partial fill upon patient request, 164, cm, 03/02/21 8:40:00 EDT, Height, 87.5, kg, 02/10/21 9:00:00 EDT, Dry Weight Start Date: 03/07/21 Stop Date: 03/02/22 Status: Ordered lisinopril 10 mg oral tablet 1, tablet, By Mouth, Daily, # 90 tablet, Refills 1, Route to Pharmacy Electronically, [facility], 164, cm, 03/02/21 8:40:00 EDT, Height, [...] weight: 91kg, 08/26/20 16:56:00 EST, sent to [facility]. Start Date: 08/26/20 Status: Ordered shower bars [...] 01/03/21 10:57:00 EDT, Route to Pharmacy Electronically, [facility], Partial fill upon patient request ifthe prescription is for a schedule II opioid drug.,... Start Date: 01/03/21 Status: Ordered traZODone 50 mg oral tablet 1, tablet, By Mouth, Daily at bedtime, PRN, # 30 tablet, Refills 5, Tot. Refills 5, Maintenance, ASNEEDED FOR SLEEP, 05/20/21 15:25:00 EDT, Route to Pharmacy Electronically, [facility]/pharmacy #[id number], 164,cm, 03/02/21 8:40:00 EDT, [...] BHN-BHCP C are Management Bre Skinner, CC [phone](Confirmed) 02/02/19 Active Thrombocytopenia(Confirmed) Active T2DM (type 2 diabetes mellitus)(Confirmed) Active Social History Social History Type Response Smoking Status Never (less than 100 in lifetime) entered on: 06/19/19 Sex
--- OUTSIDE RECORDS SUMMARY | 2023-12-10 00:47 | XMS_ITS | Continuity of Care Document ---
Author Organization [facility] Address [address] [place] [address]- Care Team Providers Care Mechanic Senior Name Role Phone Claire Trujillo MD Primary Care Physician [phone] Encounter [facility] Date(s): 03/30/20 - 04/29/[address] [address]- [facility] Allergies, Adverse Reactions, Alerts Substance Reaction [...] 0 Refills, Soft Stop, 03/30/20 18:04:00 EDT, [facility], please direct refill requests to PCP (Cassandra WHITE, Claire), 165, cm, 01/12/20 16:41:00 EDT, Height, 91, kg, 06/19/19 16:55:00 ES... Start Date: 03/30/20 Status: Ordered FLUoxetine 20 mg oral capsule 1, capsule, By Mouth, Daily, # 90 capsule, Refills 3, Tot. Refills 3, Maintenance, 11/05/19 18:38:00 EDT, Route to Pharmacy Electronically, [facility], 165, cm, 07/21/19 14:31:00 EST, Height, 91,kg, 06/19/19 16:55:00 EST, Dry Weight Start Date: 11/05/19 Stop Date: 10/30/20 Status: Ordered FREESTYLE SHELLIE LITE See Instructions, # 100 each, Refills 10 Tot. Refills 10, USE TO CHECK BLOOD SUGARS 3 TIMES A DAY WITH MEALS PLUS 1 MORE TIME NEEDED FOR SYMPTOMS, [facility] Start Date: 04/21/19 Status: Ordered FREESTYLE LANCETS 100CT See Instructions, # 100 each, Refills 11 Tot. Refills 11, USE DIRECTED FOR TYPE 1 DIABETES, KEVIN,[facility] Start Date: 03/18/19 Status: Ordered [...] tablet, 11 Refills, Maintenance, 02/23/20 12:51:00 EDT, [facility], 165, cm, 01/12/20 16:41:00 EDT, Height, [...] 11/05/19 18:37:00 EDT, Route to Pharmacy Electronically, [facility], 165, cm, 07/21/19 14:31:00 EST, [...] C are Management Bre Skinner, JOSE R [phone](Confirmed) 02/02/19 Active Thrombocytopenia(Confirmed) Active Type 1 diabetes mellitus(Confirmed) Active Social History Social History Type Response Smoking Status Never (less than 100 in lifetime) entered on: 06/19/19 Sex
--- OUTSIDE RECORDS SUMMARY | 2023-12-10 00:47 | XMS_ITS | Continuity of Care Document ---
Author Organization [facility] Address [address] [place] [address]- Care Team Providers Care Vacation Sales Advisor Name Role Phone Claire Trujillo MD Primary Care Physician [phone] [place] [facility] [place]/30[place] - 09/29/[address] [address]- Allergies, Adverse Reactions, Alerts Substance Reaction Severity Status metFORMIN 1 GI symptoms Active 1GI intolreance Immunizations Given and Recorded Vaccine Date Status Refusal Reason SARS-CoV-2 mRNA (sfemtpj-xeiq-ejign) vax 08/27/21 Given SARS-CoV-2 (COVID-19) mRNA BNT-162b2 [...] E11.9 duration: 52 weeks, 08/10/21 14:27:00 EST, [facility], 164, cm, 03/02/21 8:40:00 EDT, [...] tablet, 1 Refills, Maintenance, 08/10/21 14:27:00 EST, [facility], 164, cm, 03/02/21 8:40:00 EDT, Height, [...] 60 tablet, 5 Refills, 08/10/21 14:27:00 EST, [facility] 30, 1 tablet By Mouth 2 times a day, 164, cm, 03/02/21 8:40:00 EDT, Height, 87.5, kg, 02/10/21 9:00:00 EDT, Dry Weight Start Date: 08/10/21 Status: Ordered Diabetic Shoes with Inserts Diabetic Shoes with Inserts, See Instructions, # 2 each, Refills 0, Tot. Refills 0, Maintenance, Wear for diabetic foot care. Diagnosis: Type II DM, ICD10 E11.65. Fax to [facility], 10/28/20 14:47:00 EDT, Supply Start Date: 10/28/20 [...] PLUS 1 MORE TIME NEEDED FOR SYMPTOMS, [facility] Start Date: 04/21/19 Status: Ordered FREESTYLE LANCETS 100CT See Instructions, # 100 each, Refills 11 Tot. Refills 11, USE [facility]ET[facility]: 03/18[facility] Status: [...] Maintenance, 08/10/2213:27:00 EST, Route to Pharmacy Electronically, [facility], 164, cm, 03/02/21 8:40:00 EDT, Height, [...] 08/10/21 14:27:00 EST, Route to Pharmacy Electronically, [facility], Partial fill upon patient request if the prescription is for a schedule... Start Date: 08/10/21 Status: Ordered Jardiance 10 mg oral tablet 1 tablet, By Mouth, Daily in AM, # 30 tablet, 2 Refills, 08/10/21 14:27:00 EST, [facility], 164, cm, 03/02/21 8:40:00 EDT, Height, [...] 15 mL, 2 Refills, 08/10/21 14:27:00 EST, [facility], 164, cm, 03/02/21 8:40:00 EDT, Height, 87.5, kg, 02/10/21 9:00:00 EDT, Dry Weight Start Date: 08/10/21 Status: Ordered Lipitor 80 mg oral tablet 1 tablet = 80 mg, By Mouth, Daily at bedtime, # 30 tablet, 1 Refills, Maintenance, 08/10/21 14:27:00 EST, Tablet, [facility], Partial fill upon patient request, 164, cm, 03/02/21 8:40:00 EDT, Height, 87.5, kg, 02/10/21 9:00:00 EDT, Dry... Start Date: 08/10/21 Stop Date: 02/06/22 Status: Ordered lisinopril 10 mg oral tablet 1, tablet, By Mouth, Daily, # 30 each, Refills 1, Tot. Refills 1, 08/10/21 14:27:00 EST, Route to Pharmacy Electronically, [facility], 164, cm, 03/02/21 8:40:00 EDT, Height, [...] Mouth, Daily, # 90 tablet, 3 Refills, [facility], 164, cm, 03/02/21 8:40:00 [...] 91kg, 08/26/20 16:56:00 EST, sent to [facility] [place]... Start Date: 08/26/20 Status: Ordered shower bars [...] 08/26/21 13:58:00 EST, Route to Pharmacy Electronically, [facility], Partial fill upon patient request if the prescription is for a schedule II opi... Start Date: 08/26/21 Status: Ordered traZODone 50 mg oral tablet 1, tablet, By Mouth, Daily at bedtime, PRN, # 30 tablet, Refills 2, Tot. Refills 2, Maintenance, ASNEEDED FOR SLEEP, 08/10/21 14:27:00 EST, Route to Pharmacy Electronically, [facility], 164, cm, 03/02/21 8:40:00 EDT, Height, [...] BHN-BHCP C are Management Bre Skinner, CC [phone](Confirmed) 02/02/19 Active Thrombocytopenia(Confirmed) Active T2DM (type 2 diabetes mellitus)(Confirmed) Active Social History Social History Type Response Smoking Status Never (less than 100 in lifetime) entered on: 06/19/19 Sex
--- OUTSIDE RECORDS SUMMARY | 2023-12-10 00:47 | XMS_ITS | Continuity of Care Document ---
Author Organization [facility] Address [address] [place] [address]- Care Team Providers Care Visual Arts Teacher Name Role Phone Claire Trujillo MD Primary Care Physician [phone] [place] [facility] [place] [place] [id number] Date(s): 05/02/23 - 06/01/[address] [address]- Attending Physician: Uche Urena Admitting Physician: AdmUche sheth Referring Physician: AdmtrUche Allergies, Adverse Reactions, Alerts Substance Reaction Severity Status metFORMIN 1 GI symptoms Active 1GI intolreance Immunizations Given and Recorded Vaccine Date Status Refusal Reason SARS-CoV-2 mRNA (zsbpdrr-ppbr-xxzyv) vax 03/03/22 Given SARS-CoV-2 mRNA (jjuluyg-vmgu-jsoan) vax 08/27/21 Given SARS-CoV-2 (COVID-19) mRNA BNT-162b2 [...] 0 Refills, Maintenance, 11/27/22 11:10:00 EDT, [facility] upon [...] 05/02/23 16:07:00 EDT, Route to Pharmacy Electronically, [facility]... Start Date: 05/02/23 Stop Date: 04/26/24 [...] 05/02/23 16:08:00 EDT, Route to Pharmacy Electronically, [facility], Partial fill upon patient request if the pr... Start Date: 05/02/23 Stop Date: 07/01/23 Status: Ordered Flomax 0.4 mg oral capsule 0.8 mg, 2, capsule, By Mouth, Daily, # 180 capsule, Refills 1, Tot. Refills 1, Maintenance, 05/02/23 16:07:00 EDT, Route to Pharmacy Electronically, [facility], Partial fill upon patient [...] 99 weeks. Fax to [facility], 05/11/21 11:23:00 EDT, Supply Start Date: 05/11/21 [...] 15 mL, 1 Refills, 05/15/23 10:16:00 EDT[facility]... Start Date: 05/15/23 Status: Ordered isosorbide mononitrate 30 mg oral tablet, extended release 30 mg, 1, tablet, By Mouth, Daily at bedtime, Para el paty. Noelle antes de acostarse., # 30 tablet, Refills 3, Tot. Refills 3, Maintenance, 05/02/23 16:07:00 EDT, Route to Pharmacy Electronically, [facility], Partial fill upon telma... Start Date: 05/02/23 Stop Date: 08/30/23 Status: Ordered Jardiance 25 mg oral tablet 1 tablet = 25 mg, By Mouth, Daily in AM, # 30 tablet, 5 Refills, Maintenance, 05/02/23 16:09:00 EDT, [facility], Partial fill upon patient request [...] 04/26/24 16:08:00 EDT, 05/02/23 16:08:00 EDT, Injection, [facility], increase in dose, 165, cm, 04/16/23 8:59:00... Start Date: 05/02/23 Stop Date: 04/26/24 Status: Ordered Lantus Solostar Pen 100 units/mL subcutaneous solution = 23 units, Subcutaneous Injection, Daily at bedtime, Insulina de 24 horas., # 15 mL, 1 Refills, Maintenance, 04/26/24 16:08:00 EDT, Injection, [facility], No insurance (Medicare not active until 06/15). Please dispense via 340B., 165,... Start Date: 04/26/24 Status: Ordered Lipitor 80 mg oral tablet 1 tablet = 80 mg, By Mouth, Daily at bedtime, para colesterol / proteger el paty/ arterias tapadas en el paty, # 90 tablet, 3 Refills, Maintenance, 05/02/23 16:08:00 EDT, Tablet, [facility], Partial fill upon patient request, [...] 05/02/23 16:08:00 EDT, Route to Pharmacy Electronically, [facility]... Start Date: 05/02/23 Stop Date: 04/26/24 Status: Ordered morphine 15 mg/8 to 12 hr oral tablet, extended release 1 tablet = 15 mg, By Mouth, Every 12 hours, # 56 tablet, 0 Refills, Maintenance, 05/16/23 13:46:00 EDT, ER Tablet, [facility]/pharmacy #[id number], Partial fill upon patient request if the [...] EDT, Supply Start Date: 11/23/22 Status: Ordered pullups - adult size medium [...] weight: 93kg, 11/21/21 16:40:00 EDT, sent to [facility]. Start Date: 11/21/21 Status: Ordered shower [...] Display: Case Management Discharge Plan Authored Date: [id number] Patient: PARIS ROJO Age: 59 years Sex: Male : 1960 Associated Diagnoses: None Author: Yuridia Zepeda RN Unable to reach pt for follow up call. Call placed to Pt. [phone] via Tajik language line/[email or web address]/[id number] l/m on / requesting return call to [facility] to schedule f/u appt. Pt. to be scheduled for IPF as noted in [facility] D/C instructions 06/21/19: Follow-Up InstructionsFollow Up With: Where: When: Claire Trujillo Within 1 to 2 weeks * Yuridia Zepeda RN: PERFORM, SIGN, VERIFY Event Display: Case Management Discharge Plan Authored Date: [id number] Patient: PARIS ROJO Age: 58 years Sex: Male : 1960 Associated Diagnoses: None Author: Yuridia Zepeda RN Unable to reach pt for follow up call. Call placed to Pt. [phone] via Tajik language line/Finn [id number] RNCM was informed that Pt. is not at home presently. RAHAT l/m [facility]t. 02/07/19 10:20am at [facility]. * Yuridia Zepeda RN: PERFORM, SIGN, VERIFY Event Display: Case Management Discharge Plan Authored Date: [id number] Patient: PARIS ROJO Age: 58 years Sex: Male : 1960 Associated Diagnoses: None Author: Katelyn EPPERSON, Yuridia Unable to reach pt for follow up call. Call placed to Pt. [phone] via Tajik Language line/Zulema [id number] l/m on v/m requesting returncall to [facility] to schedule appt. (IPF appt. to be scheduled when call is returned). Patient Care team information Care Team Personnel Name: Sorin Moser RN Position: [facility] RN Member Role: Primary Care Nurse Name: Ya Wilson RN Position: [facility] RN Member Role: Primary Care Nurse Name: Brandi Wei RN Position: [facility] RN Member Role: Primary Care Nurse Name: Valentina Leiva RN Position: [facility] SN RN Member Role: Primary Care Nurse Name: Macarena Bedolla Position: [facility] Outreach Member Role: Lifetime Consulting Physician Name: Abigail Nuno RN Position: [facility] Onco RN Member Role: Primary Care Nurse Name: Claire Trujillo MD Position: [facility] Physician - Primary Care Member Role: PCP Address: Address: [address] [place] [address] Name: Heidi Dao Position: [facility] RN Member Role: Primary Care Nurse Care Team Related Persons Name: JOEL BRIZUELA Address: [address] [address]
--- OUTSIDE RECORDS SUMMARY | 2023-12-10 00:47 | XMS_ITS | Continuity of Care Document ---
Author Organization [facility] Address [address] [place] [address]- Care Team Providers Care Insurance Agency Owner Name Role Phone Claire Trujillo MD Primary Care Physician Encounter [facility] [place] Date(s): 04/24/23 - 05/24/[address] [address]- Allergies, Adverse Reactions, Alerts Substance Reaction Severity Status metFORMIN 1 GI symptoms Active 1GI intolreance Immunizations Given and Recorded Vaccine Date Status Refusal Reason SARS-CoV-2 mRNA (wqnevyf-xokm-hjjim) vax 03/03/22 Given SARS-CoV-2 mRNA (tuwhuyl-ugxw-vqzit) vax 08/27/21 Given SARS-CoV-2 (COVID-19) mRNA BNT-162b2 [...] 0 Refills, Maintenance, 11/27/22 11:10:00 EDT, [facility]otion, [facility] fill upon patient request if the prescri... Start Date: 11/27/22 Status: Ordered aspirin 81 mg oral delayed release tablet 81 mg, 1, tablet, By Mouth, Daily, blood thinner/ hace la leonard mas cullen - para proteger el paty/ arterias tapadas en el paty, # 90 tablet, Refills 3, Tot. Refills 3, Maintenance, 05/02/23 16:07:00 EDT, Route to Pharmacy Electronically, [facility]... Start Date: 05/02/23 Stop Date: 04/26/24 Status: [...] 05/02/23 16:08:00 EDT, Route to Pharmacy Electronically, [facility], Partial fill upon patient request if the pr... Start Date: 05/02/23 Stop Date: 07/01/23 Status: Ordered Flomax 0.4 mg oral capsule 0.8 mg, 2, capsule, By Mouth, Daily, # 180 capsule, Refills 1, Tot. Refills 1, Maintenance, 05/02/23 16:07:00 EDT, Route to Pharmacy Electronically, [facility], Partial fill upon [...] E10.42 duration: 99 weeks. Fax to [facility] ([facility], 05/11/21 11:23:00 EDT, Supply Start [...] 15 mL, 1 Refills, 05/15/23 10:16:00 EDT, [facility], [facility]ur... Start Date: 05/15/23 Status: Ordered isosorbide mononitrate 30 mg oral tablet, extended release 30 mg, 1, tablet, By Mouth, Daily at bedtime, Para el paty. Noelle antes de acostarse., # 30 tablet, Refills 3, Tot. Refills 3, Maintenance, 05/02/23 16:07:00 EDT, Route to Pharmacy Electronically, [facility], Partial fill upon telma... Start Date: 05/02/23 Stop Date: 08/30/23 Status: Ordered Jardiance 25 mg oral tablet 1 tablet = 25 mg, By Mouth, Daily in AM, # 30 tablet, 5 Refills, Maintenance, 05/02/23 16:09:00 EDT, [facility], Partial fill upon [...] 04/26/24 16:08:00 EDT, 05/02/23 16:08:00 EDT, Injection, [facility], increase in dose, 165, cm, 04/16/23 8:59:00... Start Date: 05/02/23 Stop Date: 04/26/24 Status: Ordered Lantus Solostar Pen 100 units/mL subcutaneous solution = 23 units, Subcutaneous Injection, Daily at bedtime, Insulina de 24 horas., # 15 mL, 1 Refills, Maintenance, 04/26/24 16:08:00 EDT, Injection, [facility], No insurance (Medicare not active until 06/15). Please dispense via 340B., 165,... Start Date: 04/26/24 Status: Ordered Lipitor 80 mg oral tablet 1 tablet = 80 mg, By Mouth, Daily at bedtime, para colesterol / proteger el paty/ arterias tapadas en el paty, # 90 tablet, 3 Refills, Maintenance, 05/02/23 16:08:00 EDT, Tablet, [facility], Partial fill upon patient request, 16... [...] 05/02/23 16:08:00 EDT, Route to Pharmacy Electronically, [facility]... Start Date: 05/02/23 Stop Date: 04/26/24 Status: Ordered morphine 15 mg/8 to 12 hr oral tablet, extended release 1 tablet = 15 mg, By Mouth, Every 12 hours, # 56 tablet, 0 Refills, Maintenance, 05/16/23 13:46:00 EDT, ER Tablet, [facility]/pharmacy #[id number], Partial fill upon patient [...] 05/04/23 11:23:00 EDT, Route to Pharmacy Electronically, [facility]/pharmacy #[id number], Partial fill upon patient request... [...] 11/21/21 16:40:00 EDT, sent to [facility]. Start Date: 11/21/21 Status: Ordered shower [...] Personnel Name: Sorin Moser RN Position: [facility] RN Member Role: Primary Care Nurse Name: Ya Wilson RN Position: [facility] RN Member Role: Primary Care Nurse Name: Brandi Wei RN Position: [facility] RN Member Role: Primary Care Nurse Name: Valentina Leiva RN Position: [facility] SN RN Member Role: Primary Care Nurse Name: Macarena Bedolla Position: [facility] Outreach Member Role: Lifetime Consulting Physician Name: Abigail Nuno RN Position: [facility] Onco RN Member Role: Primary Care Nurse Name: Claire Trujillo MD Position: [facility] Physician - Primary Care Member Role: PCP Address: Address: [address] [place] [address]- Name: Heidi Dao Position: [facility] RN Member Role: Primary Care Nurse Care Team Related Persons Name: JOEL BRIZUELA Address: [facility] [address] [place] [id number]
--- OUTSIDE RECORDS SUMMARY | 2023-12-10 00:47 | XMS_ITS | Continuity of Care Document ---
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 Role Phone Claire Trujillo MD Primary Care Physician [phone] Encounter [facility] [place] Date(s): 06/07/20 - 07/07/[address] [address] Allergies, Adverse Reactions, Alerts Substance Reaction Severity Status NKA Active Immunizations Given and Recorded Vaccine Date Status Refusal Reason influenza virus vaccine, inactivated 1 04/20/20 Gi corwni influenza virus vaccine, inactivated 04/17/19 Give n [...] PLUS 1 MORE TIME NEEDED FOR SYMPTOMS, [facility] Start Date: 04/21/19 Status: Ordered FREESTYLE LANCETS 100CT See Instructions, # 100 each, Refills 11 Tot. Refills 11, USE DIRECTED FOR TYPE 1 DIABETES, KEVIN,[facility] Start Date: 03/18/19 Status: Ordered Freestyle [...] 07/28/19 15:59:00 EST, Route to Pharmacy Electronically, [facility], 165, cm, 07/21/19 14:31:00 EST, Height, [...] 11/05/19 18:37:00 EDT, Route to Pharmacy Electronically, [facility], 165, cm, 07/21/19 14:31:00 EST, Height, [...] 02/03/20 10:00:00 EDT, Route to Pharmacy Electronically, [facility], 165, cm, 01/12/20 16:41:00 EDT, Height, [...] BHN-CP C are Management Bre Skinner, CC [phone](Confirmed) 02/02/19 Active Thrombocytopenia(Confirmed) Active Type 1 diabetes mellitus(Confirmed) Active Social History Social History Type Response Smoking Status Never (less than 100 in lifetime) entered on: 06/19/19 Sex
--- OUTSIDE RECORDS SUMMARY | 2023-12-10 00:47 | XMS_ITS | Continuity of Care Document ---
Author Organization [facility] Address [address] [place] [address]- Care Team Providers Care Pharmacy Ancillary Name Role Phone Claire Trujillo MD Primary Care Physician [place] [facility] [id number] Date(s): 07/21/19 - 07/31/[address] [address]- [facility] Attending Physician: Uche Urena Admitting Physician: [...] 3 times a day, # 50 each, Refills 1 Tot. Refills 1, [facility] Start Date: 06/16/19 Status: Ordered Admelog SoloStar 100 units/mL injectable solution See Instructions, 4 units if over 120; 6 at 200; 8 at 300; max 12/day, # 6 mL, 11 Refills, Maintenance, 04/17/19 11:13:10 EDT, Injection Start Date: 04/17/19 Status: Ordered Aspirin Enteric Coated 81 mg oral delayed release tablet See Instructions, # 30 each, Refills 11 Tot. Refills 11, TAKE ONE TABLET BY MOUTH DAILY, [facility] Start Date: 04/16/19 Status: Ordered calcium (as carbonate)-vitamin D 500 mg-400 intl units oral tablet 1 tablet, By Mouth, 2 times a day, # 300 tablet, 2 Refills, Maintenance, 09/20/18 13:33:57 EST, Tablet, 1 tablet By Mouth 2 times a day Start Date: 09/20/18 Status: Ordered FREESTYLE SHELLIE LITE See Instructions, # 100 each, Refills 10 Tot. Refills 10, USE TO CHECK BLOOD SUGARS 3 TIMES A DAY WITH MEALS PLUS 1 MORE TIME NEEDED FOR SYMPTOMS, [facility] Start Date: 04/21/19 Status: Ordered FREESTYLE LANCETS 100CT See Instructions, # 100 each, Refills 11 Tot. Refills 11, USE DIRECTED FOR TYPE 1 DIABETES, KEVIN,[facility] Start Date: 03/18/19 Status: Ordered gabapentin [...] mg oral tablet, extended release 25 mg, By Mouth, Daily in AM, Refills 0, Maintenance, 01/20/19 16:46:24 EDT Start Date: 01/20/19 Status: Ordered Problem List Condition Effective Dates Status Health Status Inform ant Diabetic peripheral neuropathy(Confirmed) Active Diabetic nephropathy(Confirmed) Active Dysphagia(Confirmed) Active Hallucinations(Confirmed) Active Hypertension(Confirmed) Active Anxiety and depression(Confirmed) Active Care coordination N-CP C are Management Bre Skinner, CC [phone](Confirmed) 02/02/19 Active Thrombocytopenia(Confirmed) Active Type 1 diabetes mellitus(Confirmed) Active Social History Social History Type Response Smoking Status Never (less than 100 in lifetime) entered on: 06/19/19 Sex
--- OUTSIDE RECORDS SUMMARY | 2023-12-10 00:47 | XMS_ITS | Continuity of Care Document ---
Author Organization [facility] Address [address] [place] [address]- Care Team Providers Care Social Work Lecturer Name Role Phone Cassandra WHITE, Claire Primary Care Physician [place] [facility] [place] Date(s): 02/23/20 - 03/24/20 [facility] [address] [place] [address]- [facility] Allergies, Adverse Reactions, Alerts Substance Reaction Severity [...] 5 Refills, Maintenance, 02/27/20 9:35:00 EDT, Tablet, [facility], 1 tablet By Mouth 2 times a day, 165, cm, 01/12/20 16:41:00 EDT, Height, 91, kg, 06/19/19 16:55:00 EST, Dry Weight Start Date: 02/27/20 Status: Ordered FLUoxetine 20 mg oral capsule 1, capsule, By Mouth, Daily, # 90 capsule, Refills 3, Tot. Refills 3, Maintenance, 11/05/19 18:38:00 EDT, Route to Pharmacy Electronically, [facility], 165, cm, 07/21/19 14:31:00 [...] cm, 07/21/19 14:31:00 EST, Height, 91, kg, ... Start Date: 01/07/20 Status: Ordered Freestyle Vladislav [...] 07/28/19 15:59:00 EST, Route to Pharmacy Electronically, [facility], 165, cm, 07/21/19 14:31:00 EST, Height, 91, kg, 06/19/19 16:55:00 EST, Dry We... Start Date: 07/28/19 Stop Date: 07/22/20 Status: Ordered isosorbide mononitrate 30 mg oral tablet, extended release 1 tablet = 30 mg, By Mouth, Daily in AM, # 30 tablet, 11 Refills, Maintenance, 02/23/20 12:51:00 EDT, [facility], 165, cm, 01/12/20 16:41:00 EDT, Height, [...] 11/05/19 18:37:00 EDT, Route to Pharmacy Electronically, [facility], 165, cm, 07/21/19 14:31:00 EST, Height, [...] 02/03/20 10:00:00 EDT, Route to Pharmacy Electronically, [facility], 165, cm, 01/12/20 16:41:00 EDT, Height, [...] N-CP C are Management Bre Skinner, CC [phone](Confirmed) 02/02/19 Active Thrombocytopenia(Confirmed) Active Type 1 diabetes mellitus(Confirmed) Active Social History Social History Type Response Smoking Status Never (less than 100 in lifetime) entered on: 06/19/19 Sex
--- OUTSIDE RECORDS SUMMARY | 2023-12-10 00:47 | XMS_ITS | Continuity of Care Document ---
Author Organization [facility] ter Address [address] [place] [id number]- Care Team Providers Care Internal Controls Analyst Name Role Phone Claire Trujillo MD Primary Care Physician [phone] [place] [facility] [id number] Date(s): 10/15/23 - 11/24/[address] [address] Attending Physician: Claire Trujillo MD Admitting Physician: Claire Trujillo MD Referring Physician: Aundrea Sweeney MD Allergies, Adverse Reactions, Alerts Substance Reaction Severity Status metFORMIN 1 GI symptoms Active 1GI intolreance Immunizations Given and Recorded Vaccine Date Status Refusal Reason zoster vaccine, inactivated 1 09/21/23 Recorded tetanus/diphtheria/pertussis, acel(Tdap) 2 09/21/23 Recorded tetanus/diphtheria/pertussis, acel(Tdap) 01/11/17 Given pneumococcal 20-valent conjugate vaccine 3 09/21/23 Recorded SARS-CoV-2 mRNA ([id number]) vax 03/03/22 Given SARS-CoV-2 mRNA (myekadl-qhgj-hkyjn) vax 08/27/21 Given SARS-CoV-2 (COVID-19) mRNA BNT-162b2 [...] 0 Refills, Maintenance, 11/27/22 11:10:00 EDT, Lotion, [facility], Partial fill upon patient request if the prescri... Start Date: 11/27/22 Status: Ordered Ankle foot orthostis Ankle foot orthostis, See Instructions, # 1 each, Refills 0, Tot. Refills 0, Maintenance, E11.40 needed for 99 weeks Fax to [facility], 09/24/23 17:56:00 EDT, Supply Start Date: 09/24/23 Status: Ordered aspirin 81 mg oral delayed release tablet 81 mg, 1, tablet, By Mouth, Daily, blood thinner/ hace carolyn berman - para proteger el paty/ arterias tapadas en el paty, # 90 tablet, Refills 3, Tot. Refills 3, Maintenance, 09/09/23 9:59:00 EST, Route to Pharmacy Electronically, [facility]... Start Date: 09/09/23 Stop Date: 09/03/24 [...] 05/02/23 16:08:00 EDT, Route to Pharmacy Electronically, [facility], Partial fill upon patient request if the pr... Start Date: 05/02/23 Stop Date: 07/01/23 Status: Ordered docusate sodium 100 mg oral tablet 1 tablet = 100 mg, By Mouth, 2 times a day, PRN for constipation, # 60 tablet, 0 Refills, Maintenance, 11/13/23 13:28:00 EDT, Tablet, [facility]/pharmacy #[id number], Partial fill upon patient request if the prescription is for a schedule II opioid drug., 165, cm,... Start Date: 11/13/23 Status: Ordered famotidine 10 mg oral tablet 1 tablet = 10 mg, By Mouth, 2 times a day, # 60 tablet, 1 Refills, Maintenance, 11/21/23 14:38:00 EDT, Tablet, [facility]/pharmacy #[id number], Partial fill upon patient request if the prescription is for a schedule II opioid drug., 165, cm, 11/21/23 14:15:00 EDT,... Start Date: 11/21/23 Status: Ordered finasteride 5 mg oral tablet = 5 mg, By Mouth, Daily, # 30 tablet, 2 Refills, Maintenance, 12/13/23 12:34:00 EDT, Tablet, [facility]/pharmacy #[id number], Partial fill upon patient request if the prescription is for a schedule II opioid drug., 165, cm, 11/21/23 14:15:00 EDT, Height, 77, kg, 0... Start Date: 12/13/23 Stop Date: 03/12/24 Status: Ordered finasteride 5 mg oral tablet = 5 mg, By Mouth, Daily, for 30 days, # 30 tablet, 0 Refills, Hard Stop 12/13/23 12:34:00 EDT, 11/13/23 12:34:00 EDT, Tablet, [facility]/pharmacy #[id number], Partial fill upon patient request if the prescriptionis for a schedule II opioid drug., 165, cm, ... Start Date: 11/13/23 Stop Date: 12/13/23 Status: Ordered Flomax 0.4 mg oral capsule 0.8 mg, 2, capsule, By Mouth, Daily, # 180 capsule, Refills 1, Tot. Refills 1, Maintenance, 10/03/23 13:04:00 EDT, Route to Pharmacy Electronically, [facility], Partial fill upon patient request [...] E10.42 duration: 99 weeks. Fax to Cheryl ([facility]), 05/11/21 11:23:00 EDT, Supply Start Date: 05/11/21 Status: Ordered Home blood pressure monitor Home blood pressure monitor, See Instructions, # 1 each, Refills 0, Tot. Refills 0, Maintenance, ICD 10 I95.1; E11. 43 ALEIDA: [facility] 12:53:00 EST, Supply Start Date: [...] Mouth, Daily at bedtime, Para el paty. Neolle antes de acostarse., # 90 tablet, Refills 3, Tot. Refills 3, Maintenance, 09/09/23 9:57:00 EST, Route to Pharmacy Electronically, [facility], Partial fill upon patien... Start Date: 09/09/23 Stop Date: 09/03/24 Status: Ordered Jardiance 25 mg oral tablet 1 tablet = 25 mg, By Mouth, Daily in AM, # 90 tablet, 3 Refills, Maintenance, 09/09/23 9:59:00 EST,[facility], Partial fill upon patient request [...] 09/27/24 13:03:00 EDT, 10/03/23 13:03:00 EDT, Injection, [facility]., increase in dose, 166, cm, 09/24/23 15:24:00... Start Date: 10/03/23 Stop Date: 09/27/24 Status: Ordered Lantus Solostar Pen 100 units/mL subcutaneous solution = 23 units, Subcutaneous Injection, Daily at bedtime, Insulina de 24 horas., # 15 mL, 1 Refills, Maintenance, 04/26/24 16:08:00 EDT, Injection, [facility], No insurance (Medicare not active until 06/15). Please dispense via 340B., 165,... Start Date: 04/26/24 Status: Ordered Lipitor 80 mg oral tablet 1 tablet = 80 mg, By Mouth, Daily at bedtime, para colesterol / proteger el paty/ arterias tapadas en el paty, # 90 tablet, 3 Refills, Maintenance, 09/09/23 9:59:00 EST, Tablet, [facility], Partial fill upon patient request, 166,... [...] 09/09/23 9:57:00 EST, Route to Pharmacy Electronically, [facility]... Start Date: 09/09/23 Stop Date: 09/03/24 Status: Ordered MiraLax oral powder for reconstitution = 17 Gm, By Mouth, Daily, for 30 days, # 510 Gm, 0 Refills, Acute 12/13/23 13:28:00 EDT, 11/13/23 13:28:00 EDT, REC Powder, [facility]/pharmacy #[id number], Partial fill upon patient request if the prescription is for a schedule II opioid drug., 17 Gm By Mouth Martha... Start Date: 11/13/23 Stop Date: 12/13/23 Status: Ordered morphine 15 mg/8 to 12 hr oral tablet, extended release 1 tablet = 15 mg, By Mouth, Every 12 hours, # 56 tablet, 0 Refills, Maintenance, 11/21/23 17:14:00 EDT, ER Tablet, [facility]/pharmacy #[id number], Partial fill upon patient request if the prescription is for a schedule II opioid drug. in addition to oxycodone ; o... Start Date: 11/21/23 Stop Date: 12/19/23 Status: Ordered mupirocin 2% topical ointment 1 application, Topically, 3 times a day, for 7 days, # 22 Gm, 0 Refills, Acute 11/28/23 14:34:00 EDT, 11/21/23 14:34:00 EDT, Ointment, [facility]/pharmacy #[id number], Partial fill upon patient request if [...] 11/26/23 14:36:00 EDT, 11/21/23 14:36:00 EDT, Tablet, [facility]/pharmacy #[id number], Partial fill upon patient request if [...] Acute 12/19/23 17:14:00 EDT, 11/21/23 17:14:00 EDT, [facility]pharmacy #[id number], Partial fill upon patient request ifthe prescription is for a schedule II opioid drug.... Start Date: 11/21/23 Stop Date: 12/19/23 Status: Ordered powerwheel chair powerwheel chair, See Instructions, # 1 each, Refills 0, Tot. 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 99 weeks fax to [facility], 09/24/23 17:56:00 EDT, Supply Start [...] weight: 93kg, 11/21/21 16:40:00 EDT, sent to [facility] Start Date: 11/21/21 Status: Ordered senna - oral tablet 2 tablet, By Mouth, Daily at bedtime, PRN for constipation, for 30 days, # 60 tablet, 0 Refills, Acute 12/13/23 13:29:00 EDT, 11/13/23 13:29:00 EDT, Tablet, [facility]/pharmacy #[id number], Partial fill upon patient request if the prescription is for a schedule II... Start Date: 11/13/23 Stop Date: 12/13/23 Status: Ordered Senna 8.6 mg oral tablet 17.2 mg, 2, tablet, By Mouth, Daily, for 30 days, # 60 tablet, Refills 0, Tot. Refills 0, Acute, 12/13/23 12:34:00 EDT, 11/13/23 12:34:00 EDT, Route to Pharmacy Electronically, [facility]/pharmacy #[id number] Tablet, Partial fill upon patient request [...] Primary Care Member Role: PCP Address: Address: [address] [place] [address]- Name: Heidi Dao Position: [facility] RN Member Role: Primary Care Nurse Care Team Related Persons Name: JOEL BRIZUELA Address: [facility] [address] [place] [id number]
--- OUTSIDE RECORDS SUMMARY | 2023-12-10 00:47 | XMS_ITS | Continuity of Care Document ---
Author Organization [facility] Address [address] [place] [id number]- Care Team Providers Care Booth Usher Name Role Phone Claire Trujillo MD Primary Care Physician [place] [facility] [place](s): 06/01/22 - 08/05/[address] [address]- Attending Physician: Siddhartha Booth MD Admitting Physician: Siddhartha Booth MD Referring Physician: Siddhartha Booth MD Allergies, Adverse Reactions, Alerts Substance Reaction Severity Status metFORMIN 1 GI symptoms Active 1GI intolreance Immunizations Given and Recorded Vaccine Date Status Refusal Reason SARS-CoV-2 mRNA (chqyyut-cdqo-[id number]) vax 03/03/22 Given SARS-CoV-2 mRNA (ldyzvru-zbcn-gnlke) vax 08/27/21 Given SARS-CoV-2 (COVID-19) mRNA BNT-162b2 [...] 05/04/22 10:23:00 EDT, Route to Pharmacy Electronically, [facility]... Start Date: 05/04/22 Status: Ordered bed [...] Moderate, Apply to legs for diabetic neuropathy. [place] sig, # 60 Gm, 1 Refills, Maintenance, 06/06/22 9:44:00 EST, Cream, [facility], Partial fill upon [...] E10.42 duration: 99 weeks. Fax to Cheryl [facility], 05/11/21 11:23:00 EDT, Supply Start Date: [...] 15 mL, 11 Refills, 06/01/22 10:46:00 EST, [facility]., 165, cm... Start Date: 06/01/22 Status: Ordered Jardiance 25 mg oral tablet 1 tablet = 25 mg, By Mouth, Daily in AM, # 30 tablet, 5 Refills, Maintenance, 06/01/22 10:45:00 EST, [facility], Partial fill upon patient request if the prescription is for a schedule II opioid drug., 165, cm, 06/01/22 10:18:00 EST, H... Start Date: 06/01/22 Stop Date: 11/28/22 Status: Ordered Lantus Solostar Pen 100 units/mL subcutaneous solution = 12 units, Subcutaneous Injection, Daily at bedtime, Insulina de 24 horas., # 6 mL, 11 Refills, Maintenance, 06/01/22 10:46:00 EST, Injection, [facility]., 165, cm, 06/01/22 10:18:00 EST, Height, 84.2, kg, 05/21/22 0:51:00 EDT, Dry Weight Start Date: 06/01/22 Stop Date: 05/27/23 Status: Ordered Lipitor 80 mg oral tablet 1 tablet = 80 mg, By Mouth, Daily at bedtime, para colesterol / proteger el paty/ arterias tapadas en el paty, # 30 tablet, 11 Refills, Maintenance, 05/04/22 10:23:00 EDT, [facility] upon patient request, 16... [...] 05/04/22 10:27:00 EDT, Route to Pharmacy Electronically, [facility]... Start Date: 05/04/22 Status: Ordered [...] II DM, ICD10 E11.65. Fax to [address] [place] [address], 07/07/22 11:52:00 EST, Supply Start Date: 07/07/22 [...] sent to [facility]. Start Date: 11/21/21 Status: Ordered shower bars [...] coordination N-CP Care Management Bre Skinner, CC [phone] Confirmed 02/02/19 Active Thrombocytopenia Confirmed Active TIA (transient ischemic attack) Confirmed Active T2DM (type 2 diabetes mellitus) Confirmed Active Social History Social History Type Response Smoking Status Never (less than 100 in lifetime) entered on: 06/19/19 Sex Patient Care team information Care Team Personnel Name: Sorin Moser RN Position: [facility] RN Member Role: Primary Care Nurse Name: Brandi Wei RN Position: [facility] RN Member Role: Primary Care Nurse Name: Ya Collier RN Position: [facility] PCO RN Member Role: Primary Care Nurse Name: Valentina Leiva RN Position: [facility] SN RN Member Role: Primary Care Nurse Name: Macarena Bedolla Position: [facility] Outreach Member Role: Lifetime Consulting Physician Name: Abigail Nuno RN Position: [facility] Onco RN Member Role: Primary Care Nurse Name: Claire Trujillo MD Position: [facility] Primary Care Physician Member Role: PCP Address: Address: [address] [place] [id number] Name: Heidi Dao Position: [facility] RN Member Role: Primary Care Nurse Care Team Related Persons Name: OSITO BRIZUELAGA Address: home [address] [place] [id number]
--- OUTSIDE RECORDS SUMMARY | 2023-12-10 00:47 | XMS_ITS | Continuity of Care Document ---
Author Organization [facility] Address [address] [place] [address]- Care Team Providers Care Corporate Driver Name Role Phone Claire Trujillo MD Primary Care Physician [phone] Encounter [facility] [place] Date(s): 07/14/21 - 08/13/[address] [address]- Allergies, Adverse Reactions, Alerts Substance Reaction Severity [...] E11.9 duration: 52 weeks, 08/10/21 14:27:00 EST, Compound, 164, cm, 03/02/21 8:40:00 EDT, Height, [...] tablet, 1 Refills, Maintenance, 08/10/21 14:27:00 EST, [facility], 164, cm, 03/02/21 8:40:00 EDT, [...] 60 tablet, 5 Refills, 08/10/21 14:27:00 EST, [facility], 30, 1 tablet By Mouth 2 times a day, 164, cm, 03/02/21 8:40:00 EDT, Height, 87.5, kg, 02/10/21 9:00:00 EDT, Dry Weight Start Date: 08/10/21 Status: Ordered Diabetic Shoes with Inserts Diabetic Shoes with Inserts, See Instructions, # 2 each, Refills 0, Tot. Refills 0, Maintenance, Wear for diabetic foot care. Diagnosis: Type II DM, ICD10 E11.65. Fax to [facility], 10/28/20 14:47:00 EDT, Supply Start [...] [facility] FOR [facility], [facility] Start Date: 03/18/19 Status: [...] Maintenance, 08/10/2213:27:00 EST, [facility] 164, cm, 03/02/21 8:40:00 EDT, Height, 87.5, kg, 02/10/21 9:00:00 EDT, Dry... Start Date: 08/10/21 Status: Ordered Hand Held Shower Head Hand Held Shower Head, See Instructions, # 1 each, Refills 0, Tot. Refills 0, Maintenance, diagnosis: diabetic neuropathy, T1DM. ICD10: E10.42 duration: 99 weeks. Fax to Cheryl ([facility]), 05/11/21 11:23:00 EDT, Supply Start Date: 05/11/21 Status: Ordered isosorbide mononitrate 60 mg oral tablet, extended release 60 mg, 1, tablet, By Mouth, Daily in AM, # 30 tablet, Refills 2, Tot. Refills 2, Maintenance, 08/10/21 14:27:00 EST, Route to Pharmacy Electronically, [facility], Partial fill upon patient request if the prescription is for a schedule... Start Date: 08/10/21 Status: Ordered Jardiance 10 mg oral tablet 1 tablet, By Mouth, Daily in AM, # 30 tablet, 2 Refills, 08/10/21 14:27:00 EST, [facility], 164, cm, 03/02/21 8:40:00 EDT, Height, 87.5, kg, 02/10/21 9:00:00 EDT, Dry Weight Start Date: 08/10/21 Status: Ordered Lantus Solostar Pen 100 units/mL subcutaneous solution = 15 units, Subcutaneous Injection, Daily at bedtime, # 9 mL, 2 Refills, Maintenance, 05/07/20 13:08:00 EDT, Injection, [facility], 163, cm, 04/21/20 22:04:00 EDT, Height, 91, kg, 04/19/20 23:16:00 EDT, Dry Weight Start Date: 05/07/20 Stop Date: 08/05/20 Status: Ordered Lantus Solostar Pen 100 units/mL subcutaneous solution See Instructions, INJECT 15 UNITS SUBCUTANEOUSLY DAILY AT BEDTIME, # 15 mL, 2 Refills, 08/10/21 14:27:00 EST, [facility], 164, cm, 03/02/21 8:40:00 EDT, Height, 87.5, kg, 02/10/21 9:00:00 EDT, Dry Weight Start Date: 08/10/21 Status: Ordered Lipitor 80 mg oral tablet 1 tablet = 80 mg, By Mouth, Daily at bedtime, # 30 tablet, 1 Refills, Maintenance, 08/10/21 14:27:00 EST, Tablet, [facility], Partial fill upon patient request, 164, cm, 03/02/21 8:40:00 EDT, Height, 87.5, kg, 02/10/21 9:00:00 EDT, Dry... Start Date: 08/10/21 Stop Date: 02/06/22 Status: Ordered lisinopril 10 mg oral tablet 1, tablet, By Mouth, Daily, # 30 each, Refills 1, Tot. Refills 1, 08/10/21 14:27:00 EST, Route to Pharmacy Electronically, [facility], 164, cm, 03/02/21 8:40:00 EDT, [...] severe neuropathy ICD10: E10.40 duration: 52 weeks, 11/19/20 11:27:00 EST, Supply Start Date: 06/03/20 Status: [...] 08/10/21 14:27:00 EST, Route to Pharmacy Electronically, [facility], Partial fill upon patient request if the prescription is for a schedule II opi... Start Date: 08/10/21 Status: Ordered traZODone 50 mg oral tablet 1, tablet, By Mouth, Daily at bedtime, PRN, # 30 tablet, Refills 2, Tot. Refills 2, Maintenance, ASNEEDED FOR SLEEP, 08/10/21 14:27:00 EST, Route to Pharmacy Electronically, [facility], 164, cm, 03/02/21 8:40:00 EDT, [...] N-CP C are Management Bre Skinner, CC [phone](Confirmed) 02/02/19 Active Thrombocytopenia(Confirmed) Active T2DM (type 2 diabetes mellitus)(Confirmed) Active Social History Social History Type Response Smoking Status Never (less than 100 in lifetime) entered on: 06/19/19 Sex
--- OUTSIDE RECORDS SUMMARY | 2023-12-10 00:47 | XMS_ITS | Continuity of Care Document ---
Author Organization [facility] ter Address [address] [place] [id number]- Care Team Providers Care Vp Securities Name Role Phone Claire Trujillo MD Primary Care Physician Encounter [facility] [place] Date(s): 11/11/23 - 11/13/[address] [id number] Encounter Diagnosis Chest pain(Final) - 11/11/23 Gastroenteritis(Final) - 11/11/23 Dizziness(Final) - 11/11/23 CAD (coronary artery disease)(Final) - 11/11/23 Dizziness(Final) - 11/12/23 Gastroenteritis(Final) - 11/12/23 CAD (coronary artery disease)(Final) - 11/12/23 Discharge Disposition: A-D/C Home Attending Physician: Eloisa Erazo MD Admitting Physician: Brennan Kearney MD Referring Physician: Not on Staff, Referring MD Allergies, Adverse Reactions, Alerts Substance Reaction Severity Status metFORMIN 1 GI symptoms Active 1GI intolreance Immunizations Given and Recorded Vaccine Date Status Refusal Reason zoster vaccine, inactivated 1 09/21/23 Recorded tetanus/diphtheria/pertussis, acel(Tdap) 2 09/21/23 Recorded tetanus/diphtheria/pertussis, acel(Tdap) 01/11/17 Given pneumococcal 20-valent conjugate vaccine 3 09/21/23 Recorded SARS-CoV-2 mRNA (njiyvsz-tpdb-pljbg) vax 03/03/22 Given SARS-CoV-2 mRNA (rrxbeox-qwyv-ghtzi) vax 08/27/21 Given SARS-CoV-2 (COVID-19) mRNA BNT-162b2 [...] 0 Refills, Maintenance, 11/27/22 11:10:00 EDT, [facility] upon patient request if the prescri... Start Date: 11/27/22 Status: Ordered Ankle foot orthostis Ankle foot orthostis, See Instructions, # 1 each, Refills 0, Tot. Refills 0, Maintenance, E11.40 needed for 99 weeks Fax to [facility], 09/24/23 17:56:00 EDT, Supply Start Date: 09/24/23 Status: Ordered aspirin 81 mg oral delayed release tablet 81 mg, 1, tablet, By Mouth, Daily, blood thinner/ hace la leonard mas cullen - para proteger el paty/ arterias tapadas en el paty, # 90 tablet, Refills 3, Tot. Refills 3, Maintenance, 09/09/23 9:59:00 EST, [facility] to Pharmacy [facility], [facility]... Start Date: 09/09/23 Stop Date: 09/03/24 [...] 05/02/23 16:08:00 EDT, Route to Pharmacy Electronically, [facility], Partial fill upon patient request if the pr... Start Date: 05/02/23 Stop Date: 07/01/23 Status: Ordered docusate sodium 100 mg oral tablet 1 tablet = 100 mg, By Mouth, 2 times a day, PRN for constipation, # 60 tablet, 0 Refills, Maintenance, 11/13/23 13:28:00 EDT, Tablet, [facility]/pharmacy #[id number], Partial fill upon patient request if the prescription is for a schedule II opioid drug., 165, cm,... Start Date: 11/13/23 Status: Ordered finasteride 5 mg oral tablet = 5 mg, By Mouth, Daily, # 30 tablet, 0 Refills, Maintenance, 11/13/23 12:34:00 EDT, Tablet, [facility]/pharmacy #[id number], Partial fill upon patient request if the prescription is for a schedule II opioid drug., 165, cm, 11/13/23 10:17:00 EDT, Height, 77, kg, 0... Start Date: 11/13/23 Stop Date: 12/13/23 Status: Ordered Flomax 0.4 mg oral capsule 0.8 mg, 2, capsule, By Mouth, Daily, # 180 capsule, Refills 1, Tot. Refills 1, Maintenance, 10/03/23 13:04:00 EDT, Route to Pharmacy Electronically, [facility], Partial fill upon patient request if [...] E10.42 duration: 99 weeks. Fax to Cheryl ([facility]), 05/11/21 11:23:00 EDT, Supply Start Date: 05/11/21 Status: Ordered Home blood pressure monitor Home blood pressure monitor, See Instructions, # 1 each, Refills 0, Tot. Refills 0, Maintenance, ICD 10 I95.1; E11. 43 ALEIDA: 99 [facility], 05/25/22 12:53:00 EST, Supply Start Date: [...] 09/09/23 9:57:00 EST, Route to Pharmacy Electronically, [facility]., Partial fill upon patien... Start Date: 09/09/23 Stop Date: 09/03/24 Status: Ordered Jardiance 25 mg oral tablet 1 tablet = 25 mg, By Mouth, Daily in AM, # 90 tablet, 3 Refills, Maintenance, 09/09/23 9:59:00 EST,[facility]., Partial fill upon patient request if the [...] 09/27/24 13:03:00 EDT, 10/03/23 13:03:00 EDT, Injection, [facility]., increase in dose, 166, cm, 09/24/23 15:24:00... Start Date: 10/03/23 Stop Date: 09/27/24 Status: Ordered Lantus Solostar Pen 100 units/mL subcutaneous solution = 23 units, Subcutaneous Injection, Daily at bedtime, Insulina de 24 horas., # 15 mL, 1 Refills, Maintenance, 04/26/24 16:08:00 EDT, Injection, [facility]., No insurance (Medicare not active until 06/15). Please dispense via 340B., 165,... Start Date: 04/26/24 Status: Ordered Lipitor 80 mg oral tablet 1 tablet = 80 mg, By Mouth, Daily at bedtime, para colesterol / proteger el paty/ arterias tapadas en el paty, # 90 tablet, 3 Refills, Maintenance, 09/09/23 9:59:00 EST, Tablet, [facility], Partial fill upon patient request, 166,... Start Date: 09/09/23 Stop Date: 09/03/24 Status: Ordered meclizine 12.5 mg oral tablet = 25 mg, By Mouth, 3 times a day, PRN Dizziness, for 6 days, # 18 tablet, 0 Refills, Acute 11/18/2412:27:00 EDT, 11/13/23 13:27:00 EDT, Tablet, [facility]/pharmacy #[id number], Partial fill upon patient request if the [...] 09/09/23 9:57:00 EST, [facility] Start Date: 09/09/23 Stop Date: 09/03/24 Status: Ordered MiraLax oral powder for reconstitution = 17 Gm, By Mouth, Daily, for 30 days, # 510 Gm, 0 Refills, Acute 12/13/23 13:28:00 EDT, 11/13/23 13:28:00 EDT, REC Powder, [facility]/pharmacy #[id number], Partial fill upon patient request if the prescription is for a schedule II opioid drug., 17 Gm By Mouth Martha... Start Date: 11/13/23 Stop Date: 12/13/23 Status: Ordered morphine 15 mg/8 to 12 hr oral tablet, extended release 1 tablet = 15 mg, By Mouth, Every 12 hours, # 56 tablet, 0 Refills, Maintenance, 10/25/23 21:13:00 EDT, ER Tablet, [facility]/pharmacy #[id number], Partial fill upon patient request if the prescription is for a schedule II opioid drug. in addition to oxycodone ; o... Start Date: 10/25/23 Stop Date: 11/22/23 Status: Ordered morphine 15 mg/8 to 12 hr oral tablet, extended release 15 mg, CR Tablet, By Mouth, 11/13/23 12:00:00 EDT Start Date: 11/13/23 Stop Date: 11/13/23 Status: Completed nortriptyline 10 mg oral capsule See Instructions, [...] 11/23/23 13:27:00 EDT, 11/13/23 13:27:00 EDT, Tablet, [facility]/pharm[facility] #[id number], Partial fill upon patient request [...] Acute 11/22/23 21:13:00 EDT, 10/25/23 21:13:00 EDT, [facility]/pharm[facility] #[id number], Partial fill upon patient request ifthe prescription is for a schedule II opioid drug.... Start Date: 10/25/23 Stop Date: 11/22/23 Status: Ordered powerwheel chair powerwheel chair, See Instructions, # 1 each, Refills 0, Tot. 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 Start Date: 11/13/23 Stop Date: 12/13/23 Status: Ordered Senna 8.6 mg oral tablet 17.2 mg, 2, tablet, By Mouth, Daily, for 30 days, # 60 tablet, Refills 0, Tot. Refills 0, Acute, 12/13/23 12:34:00 EDT, 11/13/23 12:34:00 EDT, Route to Pharmacy Electronically, [facility] #[id number] Tablet, Partial fill upon patient [...] T2DM (type 2 diabetes mellitus) Confirmed Active Results Radiology Reports * Exam Date Time Procedure Performing Provider Status 11/11/23 8:[address] Angio Neck Aliya Gallo; Auth (Verified) Notes: (CT Angio Neck) Reason For Exam: Aneurysm, neck vessel(s);Other: RESULT: CT Angio Neck CT Angio Head, CT Angio Neck Hx of Present Illness: from home, started feeling unwell this morning, got progressively worst; vomiting this morning nausea, dizziness and chest highness. Chest pain 7 10. H o RI. A Ox4 [place]ican speaking only.; Reason: Other:; Neuro deficit, acute, stroke suspected; Clinical Question(s): Other:; Hematoma Aneurysm; Order Comment: / Other: TECHNIQUE: CT angiogram of the head and neck was performed after bolus administration of intravenous contrast. 100 mL of Omnipaque 300 was administered intravenously. Coronal and sagittal MIP reformatted images were obtained. Additional 3-D images were created on a separate workstation under concurrent supervision by the attending radiologist. All stenoses are measured using NASCET criteria. Weight-based protocol using automatic tube modulation was used to optimize exposure parameters. RADIATION DOSE PARAMETERS: CTDIvol Body: 14.38 mGy, DLP Body: 1145 mGy*cm. COMPARISON: Noncontrast CT head performed concurrently. FINDINGS: There is a 3 vessel arch. The supraaortic proximal great neck vessels appear normal in caliber and appearance. No hemodynamically significant stenosis. The right common carotid artery is normal in caliber. The right carotid bulb is normal. The right proximal ICA shows 0% stenosis by NASCET criteria. The left common carotid artery is normal in caliber. The left carotid bulb is normal. The left proximal ICA shows 0% stenosis by NASCET criteria. Right vertebral artery: Slightly dominant. Patent without stenosis. Left vertebral artery: Patent without stenosis. Cervical spine: No acute pathology. Multiple levels of cervical spondylosis. Soft tissues and lung apices: The visualized upper lungs are clear. Bilateral thyroid lobes are normal. There is no definite abnormality throughout the soft tissue neck. [place]: Concurrent CT of head showed no acute pathology. Bilateral internal carotid arteries at the skull base have a few mural calcifications. No definite stenosis is seen. Bilateral posterior communicating arteries are not visualized. There is a 1-2 mm outpouching at the posterior aspect of the left paraclinoid ICA suggesting an aneurysm. The right A1 segment is hypoplastic. Otherwise ACAs, MCAs and their branches are patent. No stenosis or vessel cut off is seen. No definite aneurysm is noted. Bilateral intracranial vertebral arteries have mild mural calcifications. No focal stenosis. The vertebrobasilar junction is normal. The basilar artery is patent. No stenosis or dissection is seen. There is no basilar tip aneurysm. There is a focal moderate stenosis at P1-P2 junction on the left. The rest of the saxophone assembler and their branches are patent. The superior sagittal sinuses, the straight sinus, bilateral transverse and sigmoid sinuses: Patentwithout dural sinus thrombosis. IMPRESSION: No cutoff or high-grade stenosis of the major branches of the intracranial arteries. 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 The right proximal internal carotid artery show no significant stenosis by NASCET criteria. The left proximal internal carotid artery show no significant stenosis by NASCET criteria. The right cervical vertebral artery shows no significant stenosis. The left cervical vertebral artery shows no significant stenosis. REFERENCE: NASCET Criteria: The degree of internal carotid stenosis is based on NASCET Criteria: Normal: No stenosis Mild: Less than 50% stenosis Moderate: 50-69% stenosis Severe: 70-99% stenosis Total occlusion: No detectable patent lumen. The preliminary reports were given by the [facility]. WSN: [id number] Ordering Physician: Kiki Aparicio Dictated By: Chace Escobar MD Dictated Date/Time: 11/12/23 10:20 a Reviewed By: Chace Escobar MD Signed By: Chace Escobar MD Signed Date/Time: 11/12/23 10:20 am Transcribed By: CRISPIN Transcribed Date/Time: 11/12/23 9:01 am * Exam Date Time Procedure Performing Provider Status 11/11/23 8:[address] Angio Head Aliya Gallo (Verified) Notes: (CT Angio Head) Reason For Exam: Neuro deficit, acute, stroke suspected;Other: RESULT: CT Angio Head CT Angio Head, CT Angio Neck Hx of Present Illness: from home, started feeling unwell this morning, got progressively worst; vomiting this morning nausea, dizziness and chest highness. Chest pain 7 10. H o RI. A Ox4 [place] speaking only.; Reason: Other:; Neuro deficit, acute, stroke suspected; Clinical Question(s): Other:; Hematoma Aneurysm; Order Comment: / Other: TECHNIQUE: CT angiogram of the head and neck was performed after bolus administration of intravenous contrast. 100 mL of Omnipaque 300 was administered intravenously. Coronal and sagittal MIP reformatted images were obtained. Additional 3-D images were created on a separate workstation under concurrent supervision by the attending radiologist. All stenoses are measured using NASCET criteria. Weight-based protocol using automatic tube modulation was used to optimize exposure parameters. RADIATION DOSE PARAMETERS: CTDIvol Body: 14.38 mGy, DLP Body: 1145 mGy*cm. COMPARISON: Noncontrast CT head performed concurrently. FINDINGS: There is a 3 vessel arch. The supraaortic proximal great neck vessels appear normal in caliber and appearance. No hemodynamically significant stenosis. The right common carotid artery is normal in caliber. The right carotid bulb is normal. The right proximal ICA shows 0% stenosis by NASCET criteria. The left common carotid artery is normal in caliber. The left carotid bulb is normal. The left proximal ICA shows 0% stenosis by NASCET criteria. Right vertebral artery: Slightly dominant. Patent without stenosis. Left vertebral artery: Patent without stenosis. Cervical spine: No acute pathology. Multiple levels of cervical spondylosis. Soft tissues and lung apices: The visualized upper lungs are clear. Bilateral thyroid lobes are normal. There is no definite abnormality throughout the soft tissue neck. [place]: Concurrent CT of head showed no acute pathology. Bilateral internal carotid arteries at the skull base have a few mural calcifications. No definite stenosis is seen. Bilateral posterior communicating arteries are not visualized. There is a 1-2 mm outpouching at the posterior aspect of the left paraclinoid ICA suggesting an aneurysm. The right A1 segment is hypoplastic. Otherwise ACAs, MCAs and their branches are patent. No stenosis or vessel cut off is seen. No definite aneurysm is noted. Bilateral intracranial vertebral arteries have mild mural calcifications. No focal stenosis. The vertebrobasilar junction is normal. The basilar artery is patent. No stenosis or dissection is seen. There is no basilar tip aneurysm. There is a focal moderate stenosis at P1-P2 junction on the left. The rest of the saxophone assembler and their branches are patent. The superior sagittal sinuses, the straight sinus, bilateral transverse and sigmoid sinuses: Patentwithout dural sinus thrombosis. IMPRESSION: No cutoff or high-grade stenosis of the major branches of the intracranial arteries. 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 The right proximal internal carotid artery show no significant stenosis by NASCET criteria. The left proximal internal carotid artery show no significant stenosis by NASCET criteria. The right cervical vertebral artery shows no significant stenosis. The left cervical vertebral artery shows no significant stenosis. REFERENCE: NASCET Criteria: The degree of internal carotid stenosis is based on NASCET Criteria: Normal: No stenosis Mild: Less than 50% stenosis Moderate: 50-69% stenosis Severe: 70-99% stenosis Total occlusion: No detectable patent lumen. The preliminary reports were given by the [facility]. WSN: [id number] Ordering Physician: Kiki Aparicio Dictated By: Chace Escobar MD Dictated Date/Time: 11/12/23 10:20 a Reviewed By: Chace Escobar MD Signed By: Chace Escobar MD Signed Date/Time: 11/12/23 10:20 am Transcribed By: CRISPIN Transcribed Date/Time: 11/12/23 9:01 am * Exam Date Time Procedure Performing Provider Status 11/11/23 8:[address] Abd/Pelvis W/ IV Contrast Only Aliya Santamaria; Auth (Verified) Notes: (CT Abd/Pelvis W/ IV Contrast Only) Reason For Exam: Pain RESULT: CT Abd/Pelvis W/ IV Contrast Only CT Abd/Pelvis W/ IV Contrast Only Hx of Present Illness: from home, started feeling unwell this morning, got progressiveley worst; vomiting this morning nausea, dizziiness and chest tighness. chest pain 7 10. h o RI. A Ox4 [place]ican speaking only.; Reason: Pain; Clinical Question(s): Pancreatitis TECHNIQUE: Spiral CT through the abdomen and pelvis with IV contrast formatted in 3 planes. 100 cc of Omnipaque 300 was administered intravenously. This study was performed without oral contrast. Weight-based protocol using automatic tube modulation was used to optimize exposure parameters. CTDIvol Body: 14.38 mGy, DLP Body: 1145 mGy*cm. COMPARISON: 04/07/2022. FINDINGS: Ortho Assistant View Findings, Lines and Tubes: None. Visualized Chest: Lung bases are clear. No pleural effusion. The heart is normal in size. No pericardial effusion. Diaphragm: Normal. Liver: Normal in attenuation and morphology. No suspicious lesion. Gallbladder: Mildly fluid distended gallbladder without wall thickening. No radiodense calculus is seen. Bile ducts: Normal. Spleen: Normal. Pancreas: Normal. Adrenal glands: Normal. Kidneys and ureters: No hydronephrosis. Bilateral nonobstructing nephrolithiasis. Bladder: Quite distended but otherwise normal. No stone, mass or inflammation. Reproductive organs: Enlarged prostate. Normal seminal vesicles. Stomach, small bowel, and large bowel: Stomach and small bowel loops are nondistended. There is mild gastric wall thickening also within a few left mid abdominal jejunal small bowel loops. No obstruction. No diverticulitis or colitis. Appendix: No evidence of acute appendicitis. Peritoneum and retroperitoneum: No ascites or pneumoperitoneum. No omental or mesenteric lesions. Lymph nodes: No enlarged lymph nodes. Blood vessels: No vascular calcifications or aneurysm. Retroaortic left renal vein. No evidence of venous thrombosis. Abdominal and pelvic wall soft tissues: Tiny fat-containing umbilical hernia. Bones: No rib fractures or other acute findings. IMPRESSION: Gastroenteritis. Distended urinary bladder secondary to bladder outlet obstruction from enlarged prostate, simlar toprior. WSN: [id number] Ordering Physician: Kiki Aparicio Dictated By: Darrel Handley MD Dictated Date/Time: 11/11/23 9:52 pm Reviewed By: Darrel Handley MD Signed By: Darrel Handley MD Signed Date/Time: 11/11/23 9:52 pm Transcribed By: CRISPIN Transcribed Date/Time: 11/11/23 9:42 pm * Exam Date Time Procedure Performing Provider Status 11/11/23 8:[address] Head/Brain W/O Contrast Kristi Gallo; Auth (Verified) Notes: (CT Head/Brain W/O Contrast) Reason For Exam: Neuro deficit, acute, stroke suspected;Other: RESULT: CT Head/Brain W/O Contrast CT Head/Brain W/O Contrast INDICATION: Hx of Present Illness: from home, started feeling unwell this morning, got progressiveley worst; vomiting this morning nausea, dizziiness and chest tighness. chest pain 7 10. h o RI. A Ox4 [place] speaking only.; Reason: Other:; Neuro deficit, acute, stroke suspected; Clinical Question(s): Other:; Hematoma Infarction TECHNIQUE: Noncontrast head CT using axial technique and reconstructed in axial and coronal planes.Iterative reconstruction techniques are used to optimize dose and image quality. CTDIvol Head: 47.30 mGy, DLP Head: 772 mGy*cm. COMPARISON: 04/07/2022. FINDINGS: Ortho Assistant view findings, lines and tubes: None. BRAIN AND EXTRA-AXIAL SPACES: No parenchymal hemorrhage, midline shift, or mass effect. Kumar-white matter differentiation is wellpreserved. No acute infarct. Negative insular ribbon sign. Atherosclerotic vascular calcification of the carotid arteries but negative hyperdense vessel sign. Ventricles, sulci, and basilar cisterns are normal. No white matter lesions. No subarachnoid hemorrhage. No subdural or epidural collection. CALVARIUM, SKULL BASE, AND SOFT TISSUES: No fractures or suspicious bony lesions. The paranasal sinuses and mastoid air cells are clear. Status-post bilateral lens extraction. The extracranial soft tissues are unremarkable. IMPRESSION: No acute intracranial pathology. WSN: [id number] Ordering Physician: Kiki Aparicio Dictated By: Darrel Handley MD Dictated Date/Time: 11/11/23 8:58 pm Reviewed By: Darrel Handley MD Signed By: Darrel Handley MD Signed Date/Time: 11/11/23 8:58 pm Transcribed By: CRISPIN Transcribed Date/Time: 11/11/23 8:54 pm * Exam Date Time Procedure Performing Provider Status 11/11/23 6:43 PM Chest Portable Za Magallanes (Verified) Notes: (Chest Portable) Reason For Exam: Shortness of Breath RESULT: Chest Portable Examination: Portable chest performed on 11/11/2023. History: Chest tightness and chest pain. Findings: A frontal view of the chest is compared to a prior study dated 09/02/2023. The cardiac and mediastinal silhouettes are within normal limits. The lungs are clear. The osseous and soft tissue structures are unremarkable. IMPRESSION: There is no acute cardiopulmonary disease. WSN: [id number] Ordering Physician: Kiki Aparicio Dictated By: Lisa Pineda MD Dictated Date/Time: 11/11/23 6:44 pm Reviewed By: Lisa Pineda MD Signed By: Lisa Pineda MD Signed Date/Time: 11/11/23 6:44 pm Transcribed By: CRISPIN Transcribed Date/Time: 11/11/23 6:44 pm Vital Signs Most recent to oldest [Reference Range]: 1 2 3 Height 165 cm (11/13/23 4:32 PM) 165 cm (11/13/23 10:17 AM) 165 cm (11/13/23 8:47 AM) Weight 77 kg (11/12/23 11:12 AM) Oxygen Saturation [94-100 %] 100 % (11/13/23 4:32 PM) 100 % (11/13/23 10:17 AM) 100 % (11/13/23:32 AM) Pulse Rate [55-90 bpm] 60 bpm (11/13/23 4:32 PM) 58 bpm (11/13/23 10:17 AM) 64 bpm (11/13/23 6:32 AM) Body Mass Index [18.5-24.99 kg/m2] 28.28 kg/m2 *H* (11/12/23 11:12 AM) Blood Pressure [90-138/55-84 mm Hg] 106/51mm Hg (11/13/23 4:32 PM) 120/54mm Hg (11/13/23 10:17 AM) 100/56mm Hg (11/13/23 6:32 AM) Respiratory Rate [16-30 br/min] 18 br/min (11/13/23 4:32 PM) 16 br/min (11/13/23 3:52 PM) 16 br/min (11/13/23 12:26 PM) Temperature [96.8-100.4 DegF] 97.7 DegF (11/13/23 4:32 PM) 97.5 DegF (11/13/23 10:17 AM) 98.9 DegF (11/13/23 6:32 AM) Mode of Delivery (Oxygen) Room air (11/13/23 4:32 PM) Room air (11/13/23 10:17 AM) Room air (11/13/23 6:32 AM) Blood pressure sites Arm, right (11/13/23 4:32 PM) Arm, right (11/13/23 10:17 AM) Arm, right (11/13/23 6:32 AM) Temperature Route Oral (11/13/23 4:32 PM) Oral (11/13/23 10:17 AM) Oral (11/13/23 6:32 AM) Dry Weight 77 kg (11/12/23 11:12 AM) Social History Social History Type Response Smoking Status Never (less than 100 in lifetime) entered on: 06/19/19 Sex History and physical note * Brennan Kearney MD: PERFORM Event Display: History and Physical Hospital Authored Date: [id number] Patient: ??PARIS ROJO ? Age:??63 Years?Sex:??Male?:??1960?? Chief Complaint/Reason for Consultation from home, started feeling unwell this morning, got progressiveley worst; vomiting this morning/nausea, dizziiness and chest tighness. chest pain 01/22. h/o RI. A&Ox4 [place]ican speaking only. History of Present Illness 63-year-old male with past medical history significant for coronary artery disease, ischemic cardiomyopathy EF 40%, severe orthostatic hypotension with recurrent falls, hypertension, hyperlipidemia, TIA, diabetes mellitus insulin- dependent, generalized anxiety disorder and depression 10 days ago, he was seen by his PCP.?? His insulin regimen was adjusted and was being prepared for an insulin pump. 4 days ago, he was not eating well and was only able to drink some fluids 3 days ago, he developed dizziness but did not seek immediate care. Yesterday, his dizziness worsened where he was unable to ambulate.?? He was also complaining of nausea, vomiting, loose bowel movement as well as chest pain prompting him to present to the emergency room. ?? ER course: Vital signs: Normal Exam: Benign ?? Workup: EKG: Normal sinus rhythm No ST elevation, depression.?? Positive T wave inversions in the anterior leads. ?? CBC: Normal Chemistry: Normal except for mild hyperglycemia LFTs: Low total protein, mild hyperbilirubinemia Lactate: Normal proBNP: 201 High-sensitivity troponin: Flat = 30 10-13-1930 Urinalysis: No evidence of a urinary tract infection Triple viral screen: Pending ?? Chest Portable There is no acute cardiopulmonary disease. ?? CT Head/Brain W/O Contrast No acute intracranial pathology. ?? CT angio head and neck: Negative for large vessel occlusion or stenosis ?? CT Abd/Pelvis W/ IV Contrast Only Gastroenteritis. Distended urinary bladder secondary to bladder outlet obstruction from enlarged prostate, simlar toprior. ?? Interventions performed: LR 500 mL bolus Meclizine 25 mg p.o. x 1 ?? On my evaluation in the emergency room: Vital signs: Normal except for hypertension Patient currently without dizziness, nausea, vomiting.?? He also denies any chest pain.?? Nursing reports no loose bowel movement. ?? Review of Systems Constitutional: No weight loss, fever, chills?? HEENT: No visual loss. No hearing loss, congestion, runny nose , sore throat. Skin: No rash ?? Cardiovascular: No palpitations. Respiratory: No shortness of breath, cough. Gastrointestinal: No?abdominal pain or blood in stool. Genitourinary: No burning micturition. No urinary frequency or incontinence. Musculoskeletal: No muscle pain, back pain, joint pain or stiffness. Endocrine: No reports of sweating. No cold or heat intolerance. No polyuria or polydipsia. Hematologic: No bleeding or bruising. Immunologic/Allergic: No itchy eyes/Itchy nose/Sneezing/Watery eyes Lymphatics: No enlarged lymph nodes. Neurologic: No headache, unilateral weakness, numbness or tingling in the extremities. No change inbowel or bladder control. Psychiatric: No depression or anxiety. Objective ? Vital Signs?? Temperature: 98 DegF (11/11/23 20:50:00) Temperature Route: Oral (11/11/23 20:50:00) Pulse Rate: 67 bpm (11/12/23 04:22:00) Respiratory Rate:??15 br/min??Low (11/12/23 04:22:00) Systolic Blood Pressure:??166 mm Hg??High (11/12/23 04:22:00) Diastolic Blood Pressure:??85 mm Hg??High (11/12/23 04:22:00) Blood pressure sites: Arm, left (11/12/23 04:22:00) Mean Arterial Pressure: 112 mm Hg (11/12/23 04:22:00) Pulse Pressure: 81 mm Hg (11/12/23 04:22:00) Oxygen Saturation: 100 % (11/12/23 04:22:00) Mode of Delivery (Oxygen): Room air (11/12/23 04:22:00) Early Warning Score: 3 (11/12/23 04:22:31) ? Intake/Output? No Data Available ? Physical Exam GENERAL:?? Mildly ill-appearing, no acute cardiorespiratory distress HEAD: Normocephalic, atraumatic. EYES: No conjunctival injection. No scleral icterus. Center Line conjunctiva EARS: No tenderness, no discharge. NOSE: No asymmetry. MOUTH AND THROAT: No oral thrush.?? Moist mucous membranes NECK: No JVP elevation, No masses. Range of motion full. HEART: Regular rate ??and ??regular rhythm, no murmurs, no clicks, no rubs , no gallops. CHEST: Symmetric with respirations. No accessory muscle use, No wheezes, crackles. ABDOMEN: Normoactive bowel sounds. ??Mild epigastric tenderness without guarding. No increase in liver or spleen size. No masses palpable. GENITOURINARY: No CV angle tenderness. No suprapubic tenderness. No Basurto catheter in place.?? Rectal exam is deferred. MUSCULOSKELETAL: Range of motion full in all extremities , no obvious deformity , no increased warmth , no effusion?? VASCULAR: All pulses brisk and equal, Capillary refill time < 2sec LYMPHATIC: No cervical, axillary or inguinal adenopathy. Skin: Dry and thin. No evidence of cellulitis, no other major skin lesions?? NEUROLOGIC: No deficit on gross motor and sensory exam Alert and oriented to person, place, time, and situation Psychiatric: No delusions, hallucinations, SI or HI Assessment/Plan Assessment:??63-year-old male with past medical history significant for coronary artery disease, ischemic cardiomyopathy EF 40%, severe orthostatic hypotension with recurrent falls, hypertension, hyperlipidemia, TIA, diabetes mellitus insulin-dependent, generalized anxiety disorder and depression. Over the past 4 days, his p.o. intake is decreased. He developed dizziness with ambulatory dysfunction in the setting of nausea, vomiting and loose bowel movement. He also complained of some chest pain. Workup in the emergency room shows that he has gastroenteritis. ?? Gastroenteritis (K52.9):? - most likely viral -Admitted under observation - Follow-up on the result of triple viral screen - We will provide supportive care that includes but is not limited to clear liquid diet and advanceas tolerated -Encourage oral fluids -Hold further IV fluids Provide antipyretics: Acetaminophen Provide antiemetics: Zofran +/- Compazine Provide laxatives: Docusate + senna ?? Dizziness (R42):? Symptomatic therapy with oral hydration, oral meclizine Will not perform MRI unless with worsening symptoms ?? CAD (coronary artery disease) (I25.10):? Currently chest pain-free Troponins flat Continue aspirin ?? Orthostatic hypotension - severe, resulting in recurrent falls (I95.1):? - Keep on bed rest at night. Ambulate with assistance during the day - Has been taken off midodrine since without any benefit ?? Hypertension (I10):? Continue metoprolol with holding parameters Continue isosorbide mononitrate ?? 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 Currently appears euvolemic Status post 500 cc crystalloid bolus Avoid unnecessary IV fluids Encourage oral fluids for now ?? Hyperlipidemia (E78.5):? Continue atorvastatin ?? T2DM (type 2 diabetes mellitus) (E11.9):? Hold oral hypoglycemics while in-house POC glucose with meals and at bedtime Cover with insulin sliding scale Continue Lantus one half due to decreased p.o. intake: 10 units daily at bedtime Hypoglycemic protocol in place ?? BPH with urinary obstruction (N40.1):? Continue tamsulosin Monitor for urinary retention ?? Chronic pain syndrome (G89.4):? Controlled substance agreement signed 01-19-23 (Z79.899):? To avoid withdrawal: Continue pain medications as being provided in the outpatient; morphine extended release 15 mg every 12 hours, oxycodone 10 mg every 6 hours as needed moderate pain ?? Anxiety and depression (F41.8):? Continue nortriptyline ?? VTE Prophylaxis:? Lovenox subcu ?VTE Prophylaxis Assessment:??VTE Prophylaxis Ordered ?? Discharge Planning:? Anticipate at least 1-2 night hospital stay The above document was completed by performing history, physical examination, reconciling multiple medications, review of laboratory and imaging All assessment and plan were discussed with the patient and requested feedback with attempts to maximize understanding for the care provided. This required approximately 75 minutes to complete. ?? Ongoing Medical Necessity:? Symptomatic treatment Surveillance of symptoms ?? Code Status:? Full code ?Order Code Status:??Code Status Ordered ? Histories Allergies Allergies ?(Active and Proposed Allergies Only) metFORMIN? (Severity: Unknown severity, Onset: Unknown) ?Reactions: GI symptoms ?Comments: GI intolreance ? Past Medical History/Problem List Active Problems(17) Anxiety and depression BPH with urinary obstruction CAD (coronary artery disease) Chronic pain syndrome Controlled substance agreement signed 01-19-23 Diabetic autonomic neuropathy Diabetic nephropathy Diabetic peripheral neuropathy Dysphagia Hallucinations Hyperlipidemia Hypertension Ischemic cardiomyopathy EF 40% 04/2022; akinetic apex Orthostatic hypotension - severe, resulting in recurrent falls T2DM (type 2 diabetes mellitus) Thrombocytopenia TIA (transient ischemic attack) ? Past Surgical History Carpal tunnel release ? Social History Alcohol Details:??Use: Past. Employment/School Details:??Status: Disabled. Home/Environment Details:??Living situation: Home/Independent. Substance Abuse Details:??Use: Never. Tobacco Details:??Use: Never (less than 100 in lifetime). Details:??Never smoker ? Family History Mother: Diabetes mellitus type II; Hypertension Father: Diabetes mellitus type II; Hypertension Other: CAD - Coronary artery disease ? Medications Home Medications Ammonium Lactate 12% (ammonium lactate 12% topical lotion)?1?gisella?Topically?Daily?usedaily to the intact skin legs dailyDO NOT apply to open wounds DO NOT Aspirin (aspirin 81 mg oral delayed release tablet)?81?Milligram?1?tablet?By Mouth?Daily?for 90?Days?blood thinner/ hace la leonard mas cullen - para proteger el paty/ arterias tapadas en el paty Atorvastatin (Lipitor 80 mg oral tablet)?1?tab(s)?80?Milligram?By Mouth?Daily at bedtime?for 90?Days?para colesterol / proteger el paty/ arterias tapadas en el paty Docusate (docusate sodium 100 mg oral capsule)?100?Milligram?1?capsule?By Mouth?2times a day?as needed?for 30?Days?for constipation Durable Medical Equipment (shower chair)?See Instructions?diagnosis: diabetic neuropathy, [id number]: E10.42duration: 99 weeks Durable Medical Equipment (toilet seat)?See Instructions?to reduce risk of fallsdx: diabetic ryegkdshmcVYX96: E11.40duration: 52 weeks Durable Medical Equipment (walker with wheels and brakes)?See Instructions?dx: diabetic neuropathy, [id number]: E10.42duration: 99 weeks Durable Medical Equipment (shower bars)?See Instructions?dx: T1DM with severe cuvanutweaCXL67: E10.40duration: 52 weeks Durable Medical Equipment (blood pressure cuff)?See Instructions?as needed?Pain , Mild?for medication titrationdx: essential fvrpfapeziexPQI03: O48txzokfdh: 52 weeks Durable Medical Equipment (rollator walker w/ 4 wheels, seat and brakes)?See Instructions?dx:diabetes with erxbgerpcjCNF51: E11.40duration: 99 weeksheight: 164cmweight: 93kg Durable Medical Equipment (disinfectant wipes)?See Instructions?dx: incontinence, I6ARNVL76: N31.9duration: 99 Durable Medical Equipment (Compression stockings, thigh-high)?See Instructions?Grade II: 20-30mmHgDispense 2 pairs LAEIDA 99; Dx I 95.1; G99. 0Ht 164cm Wt 88.2kg ??BMI 32Fax to [facility] Durable Medical Equipment (Abdominal binder for treatment of orthostatic hypotension)?See Instructions?Dispense 2 pairs ALEIDA 99; Dx I 95.1; G99. 0Ht 164cm Wt 88.2kg ??BMI 32Fax to [facility] Durable Medical Equipment (medical alert system)?See Instructions?dx: T2DM with severe neuropathy, frequent dxuabXGG59: E11.40duration: 99 Durable Medical Equipment (Home blood pressure monitor)?See Instructions?ICD 10 I95.1; E11. 43LON: 99Bring rx to [facility] Durable Medical Equipment (raised toilet seat)?See Instructions?dx: autonomic neuropathy, frequent bgvusASW82: G99.0duration: 99 Durable Medical Equipment (shower chair)?See Instructions?dx: autonomic neuropathy, frequent uqbevVNG78: G99.0duration: 99 Durable Medical Equipment (FreeStyle Vladislav 2 Sensors)?See Instructions?apply one sensor every14 days; check glucose qid;E11.65 Durable Medical Equipment (FreeStyle Vladislav 2 Monitor)?See Instructions?apply one sensor every14 days; check glucose qid;E11.65 Durable Medical Equipment (Freestyle Lite Test Strips)?See Instructions?Use to check sugar once per day in the morning before eating. Utilize para chequear la azucar noah vez al d miguel antes de comer (en ayunas). Durable Medical Equipment (Freestyle Lite Lancets)?See Instructions?Use to check sugar once per day in the morning before eating. Utilize para chequear la azucar noah vez al d miguel antes de comer(en ayunas). Durable Medical Equipment (box adult wipes)?See Instructions?dx: fecal incontinence, Q1NVBUB80: G46gvcxqzej: 99 Durable Medical Equipment (Freestyle Lite Monitor)?See Instructions?to test blood sugar up to4 times per daydx: L1ZPQZC04: E11.6duration: 99 Durable Medical Equipment (cane with arm rest)?See Instructions?dx: T2DM with severe smzjegdqnbdfohbbftWCZ22: E11.40duration: 99 Durable Medical Equipment (2 boxes size large adult gloves)?See Instructions?dx: diabetic neuropathy, hyznfwjzbohpNJX27: E11.40duration: 99 Durable Medical Equipment (surgical masks)?See Instructions?for infection controldx: T2DM with severe vqtdyauuseRDO37: E11.40duration: 99 Durable Medical Equipment (Alcohol Pads)?See Instructions?To test 3 times a day and with symptomsDx: R6YKETG99: E11.9duration: 52 weeks Durable Medical Equipment (Ankle foot orthostis)?See Instructions?E11.40needed for 99 weeksFax to [facility] Durable Medical Equipment (powerwheel chair)?See Instructions?11.40severe advanced DM neuropathyneeded to navigate rfjhvy46 weeksfax to [facility] Durable Medical Equipment (bed liners)?See Instructions?dx: incontinence, K8TDhfm86: N31.9duration: 99 weeks Durable Medical Equipment (pullups - adult size medium)?See Instructions?dx: incontinence, B4RLltn00: N31.9duration: 99 weeksnote size change empagliflozin (Jardiance 25 mg oral tablet)?1?tab(s)?25?Milligram?By Mouth?Daily in AM?for 90?Days Insulin Glargine (Lantus Solostar Pen 100 units/mL subcutaneous solution)?23?unit(s)?Subcutaneous Injection?Daily at bedtime?Insulina de 24 horas. Insulin Glargine (Lantus Solostar Pen 100 units/mL subcutaneous solution)?23?unit(s)?Subcutaneous Injection?Daily at bedtime?for 30?Days?Insulina de 24 horas. Insulin Lispro (HumaLOG KwikPen 100 units/mL injectable solution)?See Instructions?Mealtime insulin; dose according to finger stick before meals FS 100-199: 5 units FS: 200-249: 6 units FS 250-299: 7 units FS above 300: 8 unitstotal daily short acting insulin dose 30 units Isosorbide Mononitrate (isosorbide mononitrate 30 mg oral tablet, extended release)?30?Milligram?1?tablet?By Mouth?Daily at bedtime?for 90?Days?Para el paty. ??Noelle antes de acostarse. Metoprolol (metoprolol 50 mg oral tablet, extended release)?50?Milligram?1?tablet?ByMouth?Daily at bedtime?for 90?Days?para proteger el paty/ prevenir palpitacionesBebaantes de acostarse. Miscellaneous Rx (Hand Held Shower Head)?See Instructions?diagnosis: diabetic neuropathy, T1DM. ICD10: E10.42duration: 99 weeks. Fax to Cheryl ([facility]) Miscellaneous Rx (one pair Diabetic Shoes with Inserts)?See Instructions?Wear for diabetic foot care. Diagnosis: Type II DM, ICD10 E11.65. Morphine (morphine 15 mg/8 to 12 hr oral tablet, extended release)?1?tab(s)?15?Milligram?By Mouth?Every 12 hours?for 28?Days Nortriptyline (nortriptyline 10 mg oral capsule)?See Instructions?GEORGE 1 CAPSULA CADA MIGUEL A LA HORA DE DORMIR. *NUEVO MEDICAMENTO PARA DOLOR NEUROPATICO. NO GEORGE JUNTO CON TRAZODONE. PUEDE CAUSAR SEDACION Oxycodone (oxyCODONE 10 mg oral tablet)?1?tab(s)?10?Milligram?By Mouth?Every 6 hours?as needed?pain?for 28?Days Tamsulosin (Flomax 0.4 mg oral capsule)?0.8?Milligram?2?capsule?By Mouth?Daily?for 90?Days ? Results Recent Labs BLOOD COUNT & DIFF WBC 5.0 k/mm3 ()?? 11/11/2023 18:50 RBC 5.28 m/mm3 ()?? 11/11/2023 18:50 Hgb 14.9 Gm/dL ()?? 11/11/2023 18:50 Hct 44.4 % ()?? 11/11/2023 18:50 MCV 84.1 femtoliters ()?? 11/11/2023 18:50 MCH 28.2 pg ()?? 11/11/2023 18:50 MCHC 33.6 g/dL ()?? 11/11/2023 18:50 Platelet Count 145 k/mm3 (Low)?? 11/11/2023 18:50 RDW-SD 39.0 femtoliters ()?? 11/11/2023 18:50 MPV 12.3 femtoliters ()?? 11/11/2023 18:50 Nucleated RBC (Automated) 0.0 #/100 WBC'S ()?? 11/11/2023 18:50 Abs. NRBC 0.0 k/mm3 ()?? 11/11/2023 18:50 Abs. Neut 3.4 k/mm3 ()?? 11/11/2023 18:50 Abs. Lymph 1.2 k/mm3 ()?? 11/11/2023 18:50 Abs. Izard 0.3 k/mm3 (Low)?? 11/11/2023 18:50 Abs. Eo 0.1 k/mm3 ()?? 11/11/2023 18:50 Abs. Baso 0.0 k/mm3 ()?? 11/11/2023 18:50 Neut % 67.9 % ()?? 11/11/2023 18:50 Lymph % 23.7 % ()?? 11/11/2023 18:50 Izard % 5.2 % ()?? 11/11/2023 18:50 Eos % 2.8 % ()?? 11/11/2023 18:50 Baso % 0.4 % ()?? 11/11/2023 18:50 Imm Gran 0.0 % ()?? 11/11/2023 18:50 Abs. Imm Gran 0.0 k/mm3 ()?? 11/11/2023 18:50 ?? CARDIAC Nt-Probnp 201 pg/mL (High)?? 11/11/2023 18:50 High Sensitivity Troponin (HSTnT) 31 ng/L (High)?? 11/11/2023 23:05 ?? CHEM GENERAL Sodium 140 mmol/L ()?? 11/11/2023 18:50 Potassium 4.9 mmol/L ()?? 11/11/2023 18:50 Chloride 101 mmol/L ()?? 11/11/2023 18:50 Bicarbonate Level 25 mmol/L ()?? 11/11/2023 18:50 Anion Gap 14 ()?? 11/11/2023 18:50 Glucose Level 192 mg/dL (High)?? 11/11/2023 18:50 BUN 14 mg/dL ()?? 11/11/2023 18:50 Creatinine-Blood 0.7 mg/dL ()?? 11/11/2023 18:50 Estimated GFR Creatinine 101 ML/MIN/1.73 M2 ()?? 11/11/2023 18:50 Calcium 9.0 mg/dL ()?? 11/11/2023 18:50 Protein, Total 6.1 Gm/dL (Low)?? 11/11/2023 18:50 Albumin 4.0 Gm/dL ()?? 11/11/2023 18:50 Alkaline Phosphatase 98 units/L ()?? 11/11/2023 18:50 Lipase 11 units/L (Low)?? 11/11/2023 18:50 AST (SGOT) 25 units/L ()?? 11/11/2023 18:50 ALT (SGPT) 18 units/L ()?? 11/11/2023 18:50 Bilirubin, Total 1.3 mg/dL (High)?? 11/11/2023 18:50 Bilirubin, Direct 0.4 mg/dL (High)?? 11/11/2023 18:50 Bilirubin, Indirect 0.9 mg/dL (High)?? 11/11/2023 18:50 Lactate 1.6 mmol/L ()?? 11/11/2023 18:50 ?? HEME OTHER Hold Blue Top SPECIMEN DISCARDED AFTER 4 HOURS. ()?? 11/11/2023 18:50 ?? UA/URINALYSIS Appear/Color, Urine YELLOW ()?? 11/11/2023 23:05 Specific [place], Urine 1.021 ()?? 11/11/2023 23:05 pH, Urine 5.5 ()?? 11/11/2023 23:05 Albumin, Urine TRACE (Abnormal)?? 11/11/2023 23:05 Glucose, Urine 4+ (Abnormal)?? 11/11/2023 23:05 Ketones, Urine NEGATIVE (N)?? 11/11/2023 23:05 Bilirubin, Urine NEGATIVE (N)?? 11/11/2023 23:05 Hemoglobin, Urine NEGATIVE (N)?? 11/11/2023 23:05 Nitrite, Urine NEGATIVE (N)?? 11/11/2023 23:05 Leukocyte, Urine NEGATIVE (N)?? 11/11/2023 23:05 Urobilinogen 4 mg/dL (Abnormal)?? 11/11/2023 23:05 WBC's, Urine <1 /HPF ()?? 11/11/2023 23:05 RBC's, Urine <1 /HPF ()?? 11/11/2023 23:05 Mucus SLIGHT /LPF ()?? 11/11/2023 23:05 Hold Urine Culture Testing available 48 hours from time of collection. ()?? 11/11/2023 23:05 ? EKG study * Event Display: ECG 12-Lead Authored Date: Please click on pdf link to open report * Event Display: ECG 12-Lead Authored Date: Ventricular Rate: 62 BPM Atrial Rate: 62 BPM P-R Interval: 154 ms QRS Duration: 88 ms Q-T Interval: 428 ms QTC Calculation(Bazett): 434 ms P [place]: -29 degrees R [place]: -30 degrees T [place]: 151 degrees Normal sinus rhythm with sinus arrhythmia Left axis deviation Limb lead misplaced Septal infarct (cited on or before 19-JUN-2019) ST and T wave abnormality, consider anterolateral ischemia Abnormal ECG When compared with ECG of 11-NOV-2023 18:25, Limb lead misplaced T wave inversion more evident in Lateral leads Confirmed by SHERYL HUI MD ([id number]) on 11/13/2023 9:11:19 AM [place]: SHERYL HUI MD * Event Display: ECG 12-Lead Authored Date: Please click on pdf link to open report * Event Display: ECG 12-Lead Authored Date: Ventricular Rate: 68 BPM Atrial Rate: 68 BPM P-R Interval: 172 ms QRS Duration: 92 ms Q-T Interval: 400 ms QTC Calculation(Bazett): 425 ms P [place]: 54 degrees R [place]: -51 degrees T [place]: 92 degrees Normal sinus rhythm with sinus arrhythmia Left anterior fascicular block Septal infarct (cited on or before 19-JUN-2019) T wave abnormality, consider anterior ischemia Abnormal ECG Confirmed by CARLIN PEOPLES ([id number]) on 11/12/2023 7:35:42 AM [place]: CARLIN PEOPLES Cardiology * Event Display: Cardiac Rhythm Strips Authored Date: Hospital Progress note * La Mendez RN: SIGN, PERFORM, SIGN, VERIFY, MODIFY Event Display: Progress Note Hospital Authored Date: [id number] Patient: PARIS ROJO Age: 63 years Sex: Male : 1960 Associated Diagnoses: None Author: La Mendez RN Findings Problem Related to Alteration in Cardiac Function (new) : Alteration in Cardiac Function/new 11/13/2023 12:00 EDT Alteration in Cardiac Status Related to Other: dizziness Goals & Outcomes, Cardiac Status Pt will resume/maintain adequate cardiac output, Pt will resume/maintain adequate hemodynamic status Cardiac Interventions Implemented Assess/monitor cardiac status, Assess/monitor neuro status, Call/Report variances in ECG to provider, Other: orthostatic hypotension BH Goals/Interventions, Cardiac Yes Cardiac, Problem Start 11/13/2023 13:00 Reviewed Plan with, Cardiac Status Patient Patient Progression, Cardiac Status Patient progressing according to plan . Alteration in Genitourinary : Alteration in Genitourinary Function/new 11/13/2023 12:00 EDT Alteration in Status Related to Urinary retention Goals & Outcomes, Genitourinary Pt will achieve normal/improved fluid balance, Pt will maintainadequate function appropriate for pt, Pt will resume normal pattern of elimination, Pt will empty bladder completely, Pt will identify cause of urinary retention Interventions, Assess/monitor/maintain Genitourinary status, Assist & encourage pt with meticulous ondina care, Assess causative factors of urinary retention, Teach signs & symptoms of distended bladder BH Goals/Interventions, Genitourinary Yes Genitourinary, Problem Start 11/13/2023 12:59 Reviewed Plan with, Genitourinary Patient Patient Progression, Genitourinary Patient progressing according to plan Genitourinary, Problem Ongoing Yes . Evaluation [place] is alert and oriented x3, pt cambodian speaking only using lip and gate builder for assessments. pt c.o right arm pain, persisent from home. pt answering questions appropriately. pt denies dizziness at this time, repeat orthostatics done, pt denies dizziness with standing. pt SB on tele. denies any nausea no vomitting, advanced diet to diabetic meal ordered. Pt has basurto cath in place, changed to a leg bag and pt and his and son given instructions about care of basurto at home. aware to follow up with both urology and pcp. iv removed and pt left via wheelchair, escorted by staff to car with . pt able to stand and pivot with standby assistance to wheelchair. . * Guru EPPERSON, Abigail: PERFORM, SIGN, VERIFY Event Display: Progress Note Hospital Authored Date: [id number] Patient: PARIS ROJO Age: 63 years Sex: Male : 1960 Associated Diagnoses: None Author: Guru EPPERSON, Abigail ED RN reported pt unable to void , senior risk manager at bedside, pt reports I felt like I need to go but then I stand and push and nothing comes out. It has been like this for a few days . Order for straight cath obtained, as bladder scan revealed over 700 mL. Straight cath performed with 14 [place], coude inserted without difficulty or resistance, small flash of urine, pt required manual bladder massage which we were able to get roughly 700 mL of dark yellow, brandi urine out, urine had a concentrated smell, however clear in nature. Repeat bladder scan with catheter in, still revealed 404 mL. Catheter was removed, and MD was messaged regarding findings. Order for Basurto was obtained, and a14 [place] coude was placed, 25 Ml of urine was drained. MD was messaged, plan to give finasteride, and see if output increases. From 1530 to 1800 there was an additional 150 mL of urine in bag. Plan to repeat bladder scan during staff submarine warfare officer, and notify MD if still retaining. Pt was educated with senior accounting manager at bedside regarding plan of care, and catheter care while in hospital. He is ableto verbalize back understanding. Denying any pain in flank, or suprapubic area, abdomen soft, non-tender. * Scotty WHITE, Kiet: PERFORM Event Display: Progress Note Hospital Authored Date: [id number] Patient: ??PARIS ROJO ? Age:??63 Years?Sex:??Male?:??1960?? Assessment/Plan Chief Complaint: from home, started feeling unwell this morning, got progressively worst; vomiting this morning/nausea, dizziiness and chest tighness. chest pain 01/22. h/o RI. A&Ox4 Puerto Rican speaking only. ? Assessment:??63-year-old male with past medical history significant for coronary artery disease, ischemic cardiomyopathy with EF 40%, severe orthostatic hypotension with recurrent falls, hypertensionhyperlipidemia TIA diabetes mellitus insulin-dependent plan Surgery disorder and depression presented with concern for not eating well and was only able to drink some fluid, 3 days ago developed dizziness yesterday the dizziness worsened where he was unable to ambulate along with nausea vomiting and loose bowel movement Admitted with a working diagnosis of gastroenteritis most likely viral, dizziness,. Afebrile, hemodynamically stable, BP slightly on the higher side, room air Normal CBC normal BMP normal LFTs Troponin proBNP 201 flu COVID RSV negative UA negative for infection Chest x-ray no acute abnormality CT head no acute intracranial pathology CT angiogram no LVO or high-grade stenosis. 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 No acute ST elevation ?? Admitted after midnight.?? Orthostasis. ??This is chronic for the patient. ??Patient will need??graded compression stocking??on discharge. ??Previously tried midodrine but failed. ??Lifestyle modification explained. ??Patient also found to have significant postvoid residual.?? Bladder scan done. ??Patient is unable to void likely from benign hypertrophy of prostate already on Flomax we will add finasteride. ??Basurto's catheter placed.?? Patient had history of diarrhea??before coming to the hospital however no evidence of diarrhea. ??Will give??gentle hydration for 24 hours??and repeat orthostasis tomorrow. ??Patient will likely go home with Basurto and follow-up with urology as outpatient. ??Fo llow-up with vascular as outpatient for??monitoring??aneurysm. ??No clear-cut evidence of infection. ??Anticipate discharge tomorrow ? Note * La Mendez RN: PERFORM Event Display: Discharge/Transfer Note Hospital Authored Date: [id number] Nursing Discharge Note Entered On: 11/13/2023 17:28 EDT Performed On: 11/13/2023 17:27 EDT by La Mendez RN Nursing Discharge Note 2 Discharge Time : 11/13/2023 17:10 EDT Discharge Level of Care at Discharge : Homehealth/VNA Discharge VNA/Hospice/Home Care(v001) : [facility] [phone] Patient Left Unit Via : Wheelchair Patient Accompanied Off Unit with : Significant other DC Instructions Provided & Signed by Pt : Yes Patient Understands D/C Instructions : Yes Patient Instructions Discharge Signed : Yes Discharge Comments : iv removed, pt given written and verbal discharge instructions and pt dcd homewith his . pt left unit via wheelchair Did Pt have Specialty Bed or Wound Vac : No La Mendez RN - 11/13/2023 17:27 EDT * Eloisa Erazo MD: PERFORM Event Display: Discharge/Transfer Note Hospital Authored Date: [id number] Patient: ??PARIS ROJO ? Age:??63 Years?Sex:??Male?:??1960?? Patient Information Discharge Location: B Primary Care Physician: Claire Trujillo MD Admit Date/Time: 11/11/23 18:17 Discharge Disposition Discharge Disposition: Home with Home Health Discharge Diagnosis Gastroenteritis (K52.9) Gastroenteritis (K52.9) Dizziness (R42) Dizziness (R42) CAD (coronary artery disease) (I25.10) Orthostatic hypotension - severe, resulting in recurrent falls (I95.1) Hypertension (I10) Hyperlipidemia (E78.5) Ischemic cardiomyopathy EF 40% 04/2022; akinetic apex (I25.5) T2DM (type 2 diabetes mellitus) (E11.9) BPH with urinary obstruction (N40.1) Chronic pain syndrome (G89.4) Controlled substance agreement signed 01-19-23 (Z79.899) Anxiety and depression (F41.8) Anxiety and depression (F41.9) Chest pain (R07.9) Dizziness (R42) Gastroenteritis (K52.9) CAD (coronary artery disease) (I25.10) _ Discharge Medications Ammonium Lactate 12% (ammonium lactate 12% topical lotion)?1?gisella?Topically?Daily?usedaily to the intact skin legs dailyDO NOT apply to open wounds DO NOT Aspirin (aspirin 81 mg oral delayed release tablet)?81?Milligram?1?tablet?By Mouth?Daily?for 90?Days?blood thinner/ hace la leonard mas cullen - para proteger el paty/ arterias tapadas en el paty Atorvastatin (Lipitor 80 mg oral tablet)?1?tab(s)?80?Milligram?By Mouth?Daily at bedtime?for 90?Days?para colesterol / proteger el paty/ arterias tapadas en el paty Docusate (docusate sodium 100 mg oral capsule)?100?Milligram?1?capsule?By Mouth?2times a day?as needed?for 30?Days?for constipation Docusate (docusate sodium 100 mg oral tablet)?1?tab(s)?100?Milligram?By Mouth?2 times a day?as needed?for constipation Durable Medical Equipment (shower chair)?See Instructions?diagnosis: diabetic neuropathy, [id number]: E10.42duration: 99 weeks Durable Medical Equipment (toilet seat)?See Instructions?to reduce risk of fallsdx: diabetic kslhxvzyepXYA34: E11.40duration: 52 weeks Durable Medical Equipment (walker with wheels and brakes)?See Instructions?dx: diabetic neuropathy, E9JGGWZ29: E10.42duration: 99 weeks Durable Medical Equipment (shower bars)?See Instructions?dx: T1DM with severe oxuqgrasciTTD25: E10.40duration: 52 weeks Durable Medical Equipment (blood pressure cuff)?See Instructions?as needed?Pain , Mild?for medication titrationdx: essential zktnnjbgjikpGXF77: G20astczvdh: 52 weeks Durable Medical Equipment (rollator walker w/ 4 wheels, seat and brakes)?See Instructions?dx:diabetes with zcpifggkhsWSQ96: E11.40duration: 99 weeksheight: 164cmweight: 93kg Durable Medical Equipment (disinfectant wipes)?See Instructions?dx: incontinence, V9GXPWL30: N31.9duration: 99 Durable Medical Equipment (Compression stockings, thigh-high)?See Instructions?Grade II: 20-30mmHgDispense 2 pairs ALEIDA 99; Dx I 95.1; G99. 0Ht 164cm Wt 88.2kg ??BMI 32Fax to [facility] Durable Medical Equipment (Abdominal binder for treatment of orthostatic hypotension)?See Instructions?Dispense 2 pairs ALEIDA 99; Dx I 95.1; G99. 0Ht 164cm Wt 88.2kg ??BMI 32Fax to [facility] Durable Medical Equipment (medical alert system)?See Instructions?dx: T2DM with severe neuropathy, frequent wazcdGNW22: E11.40duration: 99 Durable Medical Equipment (Home blood pressure monitor)?See Instructions?ICD 10 I95.1; E11. 43LON: 99Bring rx to [facility] Durable Medical Equipment (raised toilet seat)?See Instructions?dx: autonomic neuropathy, frequent ywfatXAR68: G99.0duration: 99 Durable Medical Equipment (shower chair)?See Instructions?dx: autonomic neuropathy, frequent bttdzNEM53: G99.0duration: 99 Durable Medical Equipment (FreeStyle Vladislav 2 Sensors)?See Instructions?apply one sensor every14 days; check glucose qid;E11.65 Durable Medical Equipment (FreeStyle Vladislav 2 Monitor)?See Instructions?apply one sensor every14 days; check glucose qid;E11.65 Durable Medical Equipment (Freestyle Lite Test Strips)?See Instructions?Use to check sugar once per day in the morning before eating. Utilize para chequear la azucar noah vez al d miguel antes de comer (en ayunas). Durable Medical Equipment (Freestyle Lite Lancets)?See Instructions?Use to check sugar once per day in the morning before eating. Utilize para chequear la azucar noah vez al d miguel antes de comer(en ayunas). Durable Medical Equipment (box adult wipes)?See Instructions?dx: fecal incontinence, V9UCIJH17: S24rnqeekvu: 99 Durable Medical Equipment (Freestyle Lite Monitor)?See Instructions?to test blood sugar up to4 times per daydx: I3KVPVF59: E11.6duration: 99 Durable Medical Equipment (cane with arm rest)?See Instructions?dx: T2DM with severe fuytffjtnpzieyaeezTTQ32: E11.40duration: 99 Durable Medical Equipment (2 boxes size large adult gloves)?See Instructions?dx: diabetic neuropathy, jdrwtqtjaukxNUH28: E11.40duration: 99 Durable Medical Equipment (surgical masks)?See Instructions?for infection controldx: T2DM with severe olrepoylrhVSD14: E11.40duration: 99 Durable Medical Equipment (Alcohol Pads)?See Instructions?To test 3 times a day and with symptomsDx: H8CSCVG77: E11.9duration: 52 weeks Durable Medical Equipment (Ankle foot orthostis)?See Instructions?E11.40needed for 99 weeksFax to [facility] Durable Medical Equipment (powerwheel chair)?See Instructions?11.40severe advanced DM neuropathyneeded to navigate qifbxl53 weeksfax to [facility] Durable Medical Equipment (bed liners)?See Instructions?dx: incontinence, P5RDood90: N31.9duration: 99 weeks Durable Medical Equipment (pullups - adult size medium)?See Instructions?dx: incontinence, S9HXtwa57: N31.9duration: 99 weeksnote size change empagliflozin (Jardiance 25 mg oral tablet)?1?tab(s)?25?Milligram?By Mouth?Daily in AM?for 90?Days Finasteride (finasteride 5 mg oral tablet)?5?Milligram?By Mouth?Daily?for 30?Days Insulin Glargine (Lantus Solostar Pen 100 units/mL subcutaneous solution)?23?unit(s)?Subcutaneous Injection?Daily at bedtime?Insulina de 24 horas. Insulin Glargine (Lantus Solostar Pen 100 units/mL subcutaneous solution)?23?unit(s)?Subcutaneous Injection?Daily at bedtime?for 30?Days?Insulina de 24 horas. Insulin Lispro (HumaLOG KwikPen 100 units/mL injectable solution)?See Instructions?Mealtime insulin; dose according to finger stick before meals FS 100-199: 5 units FS: 200-249: 6 units FS 250-299: 7 units FS above 300: 8 unitstotal daily short acting insulin dose 30 units Isosorbide Mononitrate (isosorbide mononitrate 30 mg oral tablet, extended release)?30?Milligram?1?tablet?By Mouth?Daily at bedtime?for 90?Days?Para el paty. ??Noelle antes de acostarse. Meclizine (meclizine 12.5 mg oral tablet)?25?Milligram?By Mouth?3 times a day?as needed?Dizziness?for 6?Days Metoprolol (metoprolol 50 mg oral tablet, extended release)?50?Milligram?1?tablet?ByMouth?Daily at bedtime?for 90?Days?para proteger el paty/ prevenir palpitacionesBebaantes de acostarse. Miscellaneous Rx (Hand Held Shower Head)?See Instructions?diagnosis: diabetic neuropathy, T1DM. ICD10: E10.42duration: 99 weeks. Fax to Cheryl ([facility]) Miscellaneous Rx (one pair Diabetic Shoes with Inserts)?See Instructions?Wear for diabetic foot care. Diagnosis: Type II DM, ICD10 E11.65. Morphine (morphine 15 mg/8 to 12 hr oral tablet, extended release)?1?tab(s)?15?Milligram?By Mouth?Every 12 hours?for 28?Days Nortriptyline (nortriptyline 10 mg oral capsule)?See Instructions?GEORGE 1 CAPSULA CADA MIGUEL A LA HORA DE DORMIR. *NUEVO MEDICAMENTO PARA DOLOR NEUROPATICO. NO GEORGE JUNTO CON TRAZODONE. PUEDE CAUSAR SEDACION Ondansetron (ondansetron 4 mg oral tablet)?1?tab(s)?4?Milligram?By Mouth?Every 8 hours?as needed?Nausea & Vomiting?for 10?Days Oxycodone (oxyCODONE 10 mg oral tablet)?1?tab(s)?10?Milligram?By Mouth?Every 6 hours?as needed?pain?for 28?Days Polyethylene Glycol 3350 (MiraLax oral powder for reconstitution)?17?gram?By Mouth?Daily?for 30?Days Senna (Senna 8.6 mg oral tablet)?17.2?Milligram?2?tab(s)?By Mouth?Daily?for 30?Days Senna (senna - oral tablet)?2?tab(s)?By Mouth?Daily at bedtime?as needed?for constipation?for 30?Days Tamsulosin (Flomax 0.4 mg oral capsule)?0.8?Milligram?2?capsule?By Mouth?Daily?for 90?Days ? Medications Started Docusate Senna Miralax Finasteride Allergies Allergies ?(Active and Proposed Allergies Only) metFORMIN? (Severity: Unknown severity, Onset: Unknown) ?Reactions: GI symptoms ?Comments: GI intolreance ? PCP Follow-Up/Heads-Up Please f/u for constipation, orthostatic hypoTn in setting of viral illness Future Appointments Sunday. 2023 3:00 PM EDT ?? Where: [address] [address]- Status: Pending Objective Assessment and Plan 63-year-old male with past medical history significant for coronary artery disease, ischemic cardiomyopathy EF 40%, severe orthostatic hypotension with recurrent falls, hypertension, hyperlipidemia, TIA, diabetes mellitus insulin- dependent, generalized anxiety disorder and depression. Over the past4 days, his p.o. intake is decreased. He developed dizziness with ambulatory dysfunction in the setting of nausea, vomiting and loose bowel movement. He also complained of some chest pain. Workup in the emergency room shows that he has gastroenteritis. ?? Gastroenteritis (K52.9):? - most likely viral -Admitted under observation Patient is feeling well this morning, tolerating??diet without issues Pending a physical therapy evaluation, he will likely be discharged home with services Anti emetics prescribed on discharge ?? Dizziness (R42):?improved Orthostatics were borderlinen from laying to sitting, he did not Symptomatic therapy with oral hydration, oral meclizine Will not perform MRI unless with worsening symptoms ?? CAD (coronary artery disease) (I25.10):? Currently chest pain-free Troponins flat Continue aspirin ?? Orthostatic hypotension - severe, resulting in recurrent falls (I95.1):? Pending PT evaluation, he will likely be discharged home with services ? Hypertension (I10):? Continue metoprolol with holding parameters Continue isosorbide mononitrate ?? 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 Currently appears euvolemic Status post 500 cc crystalloid bolus Avoid unnecessary IV fluids Encourage oral fluids for now ?? Hyperlipidemia (E78.5):? Continue atorvastatin ?? T2DM (type 2 diabetes mellitus) (E11.9):? Continue home medications on discharge ?? BPH with urinary obstruction (N40.1):? Constipation Continue tamsulosin, started on finasteride He had urinary retention this admission and basurto catheter was placed Treatment of constipation may help with his retention as well Prescribed miralax, docusate and senna on discharge ?? Chronic pain syndrome (G89.4):? Controlled substance agreement signed 01-19-23 ([id number]):? To avoid withdrawal: Continue pain medications as being provided in the outpatient; morphine extended release 15 mg every 12 hours, oxycodone 10 mg every 6 hours as needed moderate pain ?? Anxiety and depression (F41.8):? Continue nortriptyline ? Vital Signs?? Temperature: 97.5 DegF (11/13/23 10:17:00) Temperature Route: Oral (11/13/23 10:17:00) Pulse Rate: 58 bpm (11/13/23 10:17:00) Pulse Rate, Lyin bpm (11/13/23 08:47:00) Systolic Blood Pressure, Lyin mm Hg (11/13/23 08:47:00) Diastolic Blood Pressure, Lyin mm Hg (11/13/23 08:47:00) Pulse Rate, Sittin bpm (11/13/23 08:47:00) Systolic Blood Pressure, Sittin mm Hg (11/13/23 08:47:00) Diastolic Blood Pressure, Sittin mm Hg (11/13/23 08:47:00) Pulse Rate, Standin bpm (11/13/23 08:47:00) Systolic Blood Pressure, Standin mm Hg (11/13/23 08:47:00) Diastolic Blood Pressure, Standin mm Hg (11/13/23 08:47:00) Respiratory Rate: 16 br/min (11/13/23 12:26:00) Systolic Blood Pressure: 120 mm Hg (11/13/23 10:17:00) Diastolic Blood Pressure:??54 mm Hg??Low (11/13/23 10:17:00) Blood pressure sites: Arm, right (11/13/23 10:17:00) Mean Arterial Pressure: 76 mm Hg (11/13/23 10:17:00) Pulse Pressure: 66 mm Hg (11/13/23 10:17:00) Oxygen Saturation: 100 % (11/13/23 10:17:00) Mode of Delivery (Oxygen): Room air (11/13/23 10:17:00) Early Warning Score: 6 (11/13/23 12:27:00) ? Mobility & Ambulation Level Mobility & Ambulation Level Ambulatory devices needed: Cane (11/11/23) ?? Therapeutic Activity Therapeutic Activities/Mobility/Balance?? No qualifying data available. ?? . Physical Exam Constitutional: Alert, in no distress. Mental Status: Oriented to person, place and time. Head: Normocephalic. Eyes: Pupils are equal, round and reactive to light. Extraocular muscles intact. Ear, Nose and Throat: Oropharynx clear, mucous membranes moist. Ears and nose without masses, lesions or deformities. Trachea midline. Neck: Supple, Full range of motion. Respiratory: Clear to auscultation. No wheezing, rales or rhonchi. Cardiovascular: S1 S2 regular. No murmurs, rubs or gallops. Gastrointestinal: Abdomen soft, non-tender, non-distended. Normal bowel sounds. No pulsatile mass. No hepatosplenomegaly. Genitourinary: No costovertebral angle tenderness. Neurologic: Cranial nerves II-XII grossly intact. No focal neurological deficits. Flexor plantar response. Moves all extremities spontaneously. Sensation intact bilaterally. Skin: No rashes or lesions. No petechiae or purpura.?? Musculoskeletal: No cyanosis or clubbing. No gross deformities. Normal range of motion. Heme/Lymphatics/Immun: Palpation of neck reveals no swelling or tenderness of neck nodes. Palpationof groin reveals no swelling or tenderness of groin nodes. Psychiatric: Normal mood and affect Pending Results Hold Lavender Tube (BB) ordered on 11/11/2023 Follow-Up Appointments Added Follow Up ?Time Frame ?Comments Claire Trujillo MD Patient Instructions Please take docusate, senna, and miralax??as provided for constipation Please follow up with your PCP after discharge, and call to make an appointment with urology since you will be discharged on a basurto catheter Wear compression stockings, which will be provided to you before discharge Post Discharge Care Discharge ?discharge pending PT evaluation, 11/13/23 13:30:00 EDT Discharge Prescriptions ?ePrescribed, 11/13/23 13:30:00 EDT Home Health Face to Face *Denotes mandatory bergman ?? *I certify that this patient is under my care and that I or an allowed non- physician working with me had a face to face encounter with the patient on this date:??11/13/2023 13:34 ?? *The encounter with the patient was in whole, or in part, for the following medical condition, which is the primary diagnosis(es) for home health care:??Gastroenteritis (K52.9) Gastroenteritis (K52.9) Dizziness (R42) Dizziness (R42) CAD (coronary artery disease) (I25.10) Orthostatic hypotension - severe, resulting in recurrent falls (I95.1) Hypertension (I10) Hyperlipidemia (E78.5) Ischemic cardiomyopathy EF 40% 04/2022; akinetic apex (I25.5) T2DM (type 2 diabetes mellitus) (E11.9) BPH with urinary obstruction (N40.1) Chronic pain syndrome (G89.4) Controlled substance agreement signed 01-19-23 ([id number]) Anxiety and depression (F41.8) Anxiety and depression (F41.9) Chest pain (R07.9) Dizziness (R42) Gastroenteritis (K52.9) CAD (coronary artery disease) (I25.10) ?? *Select the indications for the discipline/s that are being arranged for this patient. Nursing (select all that apply): [_] None [x] Medication management (reconciliation, teaching)?? [_] Chronic disease management?? [_] Wound care and treatment?? [_] Home safety evaluation [_] Administer SQ/IM/IV medications?? [x] Cath care??- basurto catheter [_] Drain care?? [_] Trach or GT care?? Other _ Occupation Therapy (select all that apply): [_] None [_] ADL Management [_] Fall prevention training [_] Energy conservation [_] Cognitive training Other _ Physical Therapy (select all that apply): [_] None [x] Functional mobility training [x] Home exercise program to strengthen [x] Increase ROM?? [x] Falls prevention training [_] Home maintenance program for chronic disease Other _ Speech Therapy (select all that apply): [_] None [_] Swallow evaluation and training [_] Speech and language training [_] Cognitive training to process, organize, and/or recall information Other _ ? *Homebound due to (select all that apply): [_] Inability to leave home without assistance/supervision [_] Inability to ambulate without assistance [_] Pain [x] Decreased strength and endurance [_] Unsteady gait [_] Severe SOB and fatigue [_] Impaired transfers [_] Inability to negotiate stairs [_] Limited weight bearing [_] Mental status change? *Physician Signature:??Eliosa Erazo MD ?? *By signing this, I certify that I have personally evaluated the patient and agree with the findings and recommendations as documented above. ? F Results Discharge Labs BLOOD COUNT & DIFF WBC 4.5 k/mm3 ()?? 11/12/2023 05:48 RBC 5.05 m/mm3 ()?? 11/12/2023 05:48 Hgb 14.5 Gm/dL ()?? 11/12/2023 05:48 Hct 42.3 % ()?? 11/12/2023 05:48 MCV 83.8 femtoliters ()?? 11/12/2023 05:48 MCH 28.7 pg ()?? 11/12/2023 05:48 MCHC 34.3 g/dL ()?? 11/12/2023 05:48 Platelet Count 121 k/mm3 (Low)?? 11/12/2023 05:48 RDW-SD 38.3 femtoliters ()?? 11/12/2023 05:48 MPV 12.0 femtoliters ()?? 11/12/2023 05:48 Nucleated RBC (Automated) 0.0 #/100 WBC'S ()?? 11/12/2023 05:48 Abs. NRBC 0.0 k/mm3 ()?? 11/12/2023 05:48 Abs. Neut 3.4 k/mm3 ()?? 11/11/2023 18:50 Abs. Lymph 1.2 k/mm3 ()?? 11/11/2023 18:50 Abs. Izard 0.3 k/mm3 (Low)?? 11/11/2023 18:50 Abs. Eo 0.1 k/mm3 ()?? 11/11/2023 18:50 Abs. Baso 0.0 k/mm3 ()?? 11/11/2023 18:50 Neut % 67.9 % ()?? 11/11/2023 18:50 Lymph % 23.7 % ()?? 11/11/2023 18:50 Izard % 5.2 % ()?? 11/11/2023 18:50 Eos % 2.8 % ()?? 11/11/2023 18:50 Baso % 0.4 % ()?? 11/11/2023 18:50 Imm Gran 0.0 % ()?? 11/11/2023 18:50 Abs. Imm Gran 0.0 k/mm3 ()?? 11/11/2023 18:50 ?? CARDIAC Nt-Probnp 201 pg/mL (High)?? 11/11/2023 18:50 High Sensitivity Troponin (HSTnT) 31 ng/L (High)?? 11/11/2023 23:05 ?? CHEM GENERAL Sodium 135 mmol/L ()?? 11/13/2023 02:36 Potassium 3.7 mmol/L ()?? 11/13/2023 02:36 Chloride 99 mmol/L ()?? 11/13/2023 02:36 Bicarbonate Level 28 mmol/L ()?? 11/13/2023 02:36 Anion Gap 8 ()?? 11/13/2023 02:36 Glucose Level 183 mg/dL (High)?? 11/13/2023 02:36 Glucose, POC 123 mg/dL (High)?? 11/13/2023 10:42 BUN 9 mg/dL ()?? 11/13/2023 02:36 Creatinine-Blood 1.0 mg/dL ()?? 11/13/2023 02:36 Estimated GFR Creatinine 88 ML/MIN/1.73 M2 ()?? 11/13/2023 02:36 Calcium 8.5 mg/dL (Low)?? 11/13/2023 02:36 Protein, Total 6.1 Gm/dL (Low)?? 11/11/2023 18:50 Albumin 4.0 Gm/dL ()?? 11/11/2023 18:50 Alkaline Phosphatase 98 units/L ()?? 11/11/2023 18:50 Lipase 11 units/L (Low)?? 11/11/2023 18:50 AST (SGOT) 25 units/L ()?? 11/11/2023 18:50 ALT (SGPT) 18 units/L ()?? 11/11/2023 18:50 Bilirubin, Total 1.3 mg/dL (High)?? 11/11/2023 18:50 Bilirubin, Direct 0.4 mg/dL (High)?? 11/11/2023 18:50 Bilirubin, Indirect 0.9 mg/dL (High)?? 11/11/2023 18:50 Lactate 1.6 mmol/L ()?? 11/11/2023 18:50 ? HEME OTHER Hold Lavender Top SPECIMEN DISCARDED AFTER 24 HOURS. ()?? 11/13/2023 02:36 Hold Blue Top SPECIMEN DISCARDED AFTER 4 HOURS. ()?? 11/11/2023 18:50 ?? UA/URINALYSIS Appear/Color, Urine YELLOW ()?? 11/11/2023 23:05 Specific Eustace, Urine 1.021 ()?? 11/11/2023 23:05 pH, Urine 5.5 ()?? 11/11/2023 23:05 Albumin, Urine TRACE (Abnormal)?? 11/11/2023 23:05 Glucose, Urine 4+ (Abnormal)?? 11/11/2023 23:05 Ketones, Urine NEGATIVE (N)?? 11/11/2023 23:05 Bilirubin, Urine NEGATIVE (N)?? 11/11/2023 23:05 Hemoglobin, Urine NEGATIVE (N)?? 11/11/2023 23:05 Nitrite, Urine NEGATIVE (N)?? 11/11/2023 23:05 Leukocyte, Urine NEGATIVE (N)?? 11/11/2023 23:05 Urobilinogen 4 mg/dL (Abnormal)?? 11/11/2023 23:05 WBC's, Urine <1 /HPF ()?? 11/11/2023 23:05 RBC's, Urine <1 /HPF ()?? 11/11/2023 23:05 Mucus SLIGHT /LPF ()?? 11/11/2023 23:05 Hold Urine Culture Testing available 48 hours from time of collection. ()?? 11/11/2023 23:05 ? URINE OTHER Est Creatinine Clearance 63.97 mL/min ()?? 11/13/2023 03:25 ? VIROLOGY Influenza A PCR NEGATIVE ()?? 11/12/2023 04:18 Influenza B PCR NEGATIVE ()?? 11/12/2023 04:18 RSV PCR NEGATIVE ()?? 11/12/2023 04:18 COVID-19 PCR Specimen Source NASAL ()?? 11/12/2023 04:18 COVID-19 PCR Result NEGATIVE ()?? 11/12/2023 04:18 ? Blood Glucose Trend Glucose Level:??183 mg/dL??High (11/13/23 02:36:00) Glucose, POC:??123 mg/dL??High (11/13/23 10:42:00) Glucose, POC:??196 mg/dL??High (11/13/23 05:32:00) Glucose, POC:??187 mg/dL??High (11/12/23 21:34:00) Glucose, POC:??249 mg/dL??High (11/12/23 15:49:00) ? Microbiology ?? COVID-19, RSV, and Flu A/B, Rapid PCR?? Completed?? Source: Nasal Body Site: Nose Collected Dt/Tm: 11/12/2023 04:14 Last Updated Dt/Tm: 11/12/2023 05:58 ? 40??minutes spent on discharge * Rimma Barrera: PERFORM, SIGN, VERIFY Event Display: Case Management Discharge Plan Authored Date: [id number] Patient: PARIS ROJO Age: 63 years Sex: Male : 1960 Associated Diagnoses: None Author: Rimma Barrera Discharge Plan Case Management Discharge Plan : Case Management Discharge Plan Data 11/13/2023 12:52 EDT Discharge Level of Care at Discharge Homehealth/VNA Discharge VNA/Hospice/Home Care [facility] [phone] Name of Agency #1 [facility] Categories #1 [facility] Comments #1 [facility] will call you to coordinate time for nurse to visit * La Mendez RN: PERFORM Event Display: Patient Education/Instruction Authored Date: [id number] Inpatient Adult Discharge Instructions. [address] [address] Name: PARIS ROJO : 1960?? Visit: 11/11/2023 18:17?? Current Date: 11/13/2023 16:33 ?? Account: [id number]?? Inpatient Adult Discharge Instructions We would like to thank you for allowing us to assist you with your healthcare needs. The following includes patient education materials and information regarding your injury/illness. Our entire staffstrives to provide an excellent experience for our patients and their families. PLEASE ENSURE YOU FOLLOW-UP PER THE INSTRUCTIONS BELOW! ?? YOUR OPINION IS IMPORTANT TO US! Please complete the survey you may receive by mail or email. Your feedback will be used to make improvements to the healthcare experiences of our patients and their families. Surveys are administered by [employer] ?? If further treatment with your primary care physician or another doctor is recommended, it is important for you to keep the appointment. Call your primary care physician or return to the Emergency Department immediately if your condition worsens, fails to improve, or new symptoms develop. If you need to find a doctor, you can call [facility] for a referral at [phone] or toll free at [phone] or log in to [email or web address].. ?? [facility], in keeping with [facility] guidance, no longer requires face masks for staff, patientsor visitors in most situations. Similiar to time spent indoors at other locations, there is the chance that you were exposed to repiratory viruses during your time with us (such as flu or COVID-19). If you develop symptoms concerning for a viral respiratory infection, please seek testing (and treatment if indicated) from your medical provider or home test kit. ?? You can view and manage your care through the patient portal or by using a health care gisella of your choosing. [employer] is a website that allows you to securely view your medical information including your hospital discharge summary, office visit summaries, medications and follow-up visits. You can also request appointments, renew medications, and request access to your medical information using a health care gisella of your choosing, or just ask a question. You can enroll at [email or web address] or register during your next office visit. You have been discharged from [facility], Patient Care Unit: D3B??. If you have any questions regarding these instructions, including results of studies pending, afteryou leave, please call us and we will be happy to assist you 05/02. [facility] Your Care Team Attending Physician Eloisa Erazo MD?? Consulting Providers Eloisa Erazo MD?? Discharging Providers Eloisa Erazo MD Reason for Your Visit from home, started feeling unwell this morning, got progressiveley worst; vomiting this morning/nausea, dizziiness and chest tighness. chest pain 01/22. h/o [place]. A&Ox4 Puerto Rican speaking only.?? Your Diagnosis Gastroenteritis Dizziness Orthostatic hypotension - severe, resulting in recurrent falls Hypertension Hyperlipidemia Ischemic cardiomyopathy EF 40% 04/2022; akinetic apex T2DM (type 2 diabetes mellitus) BPH with urinary obstruction Chronic pain syndrome Controlled substance agreement signed 01-19-23 Anxiety and depression Anxiety and depression General medical Tests Performed Below is a partial list of the tests performed during your hospitalization. You may have had other tests and procedures not included in this list. Please discuss all test results with your provider. Basic Metabolic Panel BNP BUN CBC CBC w/ Differential COVID-19, RSV, and Flu A/B, Rapid PCR Creatinine Electrolytes GLUCOSE POC Hold Blue Top Tube HOLD LAVENDER TUBE Lactate Level LFT's Lipase Troponin T, High Sensitivity Urinalysis w/hold for Urine Culture CT Abd/Pelvis W/ IV Contrast Only CT Angio Head CT Angio Neck CT Head/Brain W/O Contrast CXR Portable Hold Lavender Tube (BB)?? Primary Care Provider Claire Trujillo MD? Advance Directive Health Care Proxy on File Yes - Health Care Proxy Discharge Vitals Temperature: 97.5 DegF Height: 165 cm Pulse Rate: 58 bpm Weight: 77 kg Respiratory Rate: 16 br/min Body Mass Index:??28.28 kg/m2??High Systolic Blood Pressure: 120 mm Hg Body surface area: 1.88 Diastolic Blood Pressure:??54 mm Hg??Low ?? Oxygen Saturation: 100 % ?? Studies Pending All studies ordered during this hospital stay have been completed unless listed below. Please discuss all pending results with your provider listed above in these instructions. ?? Hold Lavender Tube (BB)?? What to do next Instructions From Your Doctor Please take docusate, senna, and miralax??as provided for constipation Please follow up with your PCP after discharge, and call to make an appointment with urology since you will be discharged on a basurto catheter Wear compression stockings, which will be provided to you before discharge ?? Orders?? pending PT evaluation, ??11/13/23 13:30:00 EDT?? Prescriptions??, ??11/13/23 13:30:00 EDT?? Scheduled Follow-Up Appointments Sunday. 2023 3:00 PM EDT ?? Where: [address] [address]- Status: Pending You Need to Schedule the Following Appointments Follow Up with??Claire Trujillo MD Where: ?? Discharge Medications PARIS ROJO :1960 Visit Date:11/11/2023 Medications: Please continue your medications until treatment is completed or stopped by your provider. Medications not listed below should be discontinued. Discuss any questions related to medications with your provider. What How Much When Why Instructions Next Dose New Finasteride (finasteride 5 mg oral tablet) 5 Milligram Oral Daily Duration: 30 Days Pickup at [facility]/pharmacy #[id number] 11/13 9am New Meclizine (meclizine 12.5 mg oral tablet) 25 Milligram Oral 3 times a day as needed for Dizziness Duration: 6 Days Pickup at [facility]/pharmacy #[id number] 11/12 as needed New Ondansetron (ondansetron 4 mg oral tablet) 1 tab(s) Oral Every 8 hours as needed for Nausea & Vomiting Duration: 10 Days Pickup at [facility]/pharmacy #[id number] 11/12 as needed New Polyethylene Glycol 3350 (MiraLax oral powder for reconstitution) 17 gram Oral Daily Duration: 30 Days Pickup at [facility]/pharmacy #[id number] 11/12 if needed New Senna (senna - oral tablet) 2 tab(s) Oral Daily at Bedtime as needed for for constipation Duration: 30 Days Pickup at [facility]/pharmacy #[id number] 11/12 if needed Changed Docusate (docusate sodium 100 mg oral tablet) 1 tab(s) Oral Twice a day as needed for for constipation Pickup at [facility]/pharmacy #[id number] 11/12 9pm if needed Unchanged Ammonium Lactate 12% (ammonium lactate 12% topical lotion) 1 gisella Topically Daily use daily to the intact skin legs daily DO NOT apply to open wounds DO NOT ?? 11/13 9am Unchanged Aspirin (aspirin 81 mg oral delayed release tablet) 1 tab(s) Oral Daily Duration: 90 Days blood thinner/ ??hace la leonard mas cullen - para proteger el paty/ ??arterias tapadas en el paty ?? 11/13 9am Unchanged Atorvastatin (Lipitor 80 mg oral tablet) 1 tab(s) Oral Daily at Bedtime Duration: 90 Days para colesterol / ??proteger el paty/ ??arterias tapadas en el paty ?? 11/12??9pm Unchanged Durable Medical Equipment (2 boxes size large adult gloves) See instructions dx: diabetic neuropathy, incontinence ICD10: E11.40 duration: 99 ?? Unchanged Durable Medical Equipment (Abdominal binder for treatment of orthostatic hypotension) Seeinstructions Dispense 2 pairs ALEIDA 99; Dx I 95.1; G99. 0 Ht 164cm Wt 88.2kg ??BMI 32 Fax to [facility] ?? Unchanged Durable Medical Equipment (Alcohol Pads) See instructions To test 3 times a day and with symptoms Dx: T2DM ICD10: E11.9 duration: 52 weeks ?? Unchanged Durable Medical Equipment (Ankle foot orthostis) See instructions Diabetic neuropathy E11.40 needed for 99 weeks Fax to [facility] ?? Unchanged Durable Medical Equipment (bed liners) See instructions dx: incontinence, T1DM icd10: N31.9 duration: 99 weeks ?? Unchanged Durable Medical Equipment (blood pressure cuff) See instructions for medication titration dx: essential hypertension ICD10: I10 duration: 52 weeks, As needed for Pain , Mild ?? Unchanged Durable Medical Equipment (box adult wipes) See instructions dx: fecal incontinence, T2DM ICD10: R15 duration: 99 ?? Unchanged Durable Medical Equipment (cane with arm rest) See instructions dx: T2DM with severe diabetic neuropathy ICD10: E11.40 duration: 99 ?? Unchanged Durable Medical Equipment (Compression stockings, thigh-high) See instructions Grade II: 20-30mmHg Dispense 2 pairs ALEIDA 99; Dx I 95.1; G99. 0 Ht 164cm Wt 88.2kg ??BMI 32 Fax to [facility] ?? Unchanged Durable Medical Equipment (disinfectant wipes) See instructions dx: incontinence, T1DM ICD10: N31.9 duration: 99 ?? Unchanged Durable Medical Equipment (FreeStyle Vladislav 2 Monitor) See instructions apply one sensor every 14 days; check glucose qid;E11.65 ?? Unchanged Durable Medical Equipment (FreeStyle Vladislav 2 Sensors) See instructions apply one sensor every 14 days; check glucose qid;E11.65 ?? Unchanged Durable Medical Equipment (Freestyle Lite Lancets) See instructions Use to check sugar once per day in the morning before eating. ?? Utilize para chequear la azucar noah vez al d miguel antes de comer (en ayunas). ?? Unchanged Durable Medical Equipment (Freestyle Lite Monitor) See instructions to test blood sugar up to 4 times per day dx: T2DM ICD10: E11.6 duration: 99 ?? Unchanged Durable Medical Equipment (Freestyle Lite Test Strips) See instructions Use to check sugar once per day in the morning before eating. ?? Utilize para chequear la azucar noah vez al d miguel antes de comer (en ayunas). ?? Unchanged Durable Medical Equipment (Home blood pressure monitor) See instructions ICD 10 I95.1; E11. 43 ALEIDA: 99 Bring rx to [facility] ?? Unchanged Durable Medical Equipment (medical alert system) See instructions dx: T2DM with severe neuropathy, frequent falls ICD10: E11.40 duration: 99 ?? Unchanged Durable Medical Equipment (powerwheel chair) See instructions 11.40 severe advanced DM neuropathy needed to navigate safely ?? 99 weeks ?? fax to [facility] ?? Unchanged Durable Medical Equipment (pullups - adult size medium) See instructions dx: incontinence, T1DM icd10: N31.9 duration: 99 weeks ?? note size change ?? Unchanged Durable Medical Equipment (raised toilet seat) See instructions dx: autonomic neuropathy, frequent falls ICD10: G99.0 duration: 99 ?? Unchanged Durable Medical Equipment (rollator walker w/ 4 wheels, seat and brakes) See instructions dx: diabetes with neuropathy ICD10: E11.40 duration: 99 weeks ?? height: 164cm weight: 93kg ?? Unchanged Durable Medical Equipment (shower bars) See instructions dx: T1DM with severe neuropathy ICD10: E10.40 duration: 52 weeks ?? Unchanged Durable Medical Equipment (shower chair) See instructions diagnosis: diabetic neuropathy, T1DM ICD10: E10.42 duration: 99 weeks ?? Unchanged Durable Medical Equipment (shower chair) See instructions dx: autonomic neuropathy, frequent falls ICD10: G99.0 duration: 99 ?? Unchanged Durable Medical Equipment (surgical masks) See instructions for infection control dx: T2DM with severe neuropathy ICD10: E11.40 duration: 99 ?? Unchanged Durable Medical Equipment (toilet seat) See instructions to reduce risk of falls dx: diabetic neuropathy ICD10: E11.40 duration: 52 weeks ?? Unchanged Durable Medical Equipment (walker with wheels and brakes) See instructions dx: diabetic neuropathy, T1DM ICD10: E10.42 duration: 99 weeks ?? Unchanged empagliflozin (Jardiance 25 mg oral tablet) 1 tab(s) Oral Daily in the morning Duration: 90 Days Unchanged Insulin Glargine (Lantus Solostar Pen 100 units/ mL subcutaneous solution) 23 unit(s) Subcutaneous Injection Daily at Bedtime Insulina de 24 horas. ?? Unchanged Insulin Glargine (Lantus Solostar Pen 100 units/ mL subcutaneous solution) 23 unit(s) Subcutaneous Injection Daily at Bedtime Duration: 30 Days Insulina de 24 horas. ?? Unchanged Insulin Lispro (HumaLOG KwikPen 100 units/ mL injectable solution) See instructions Mealtime insulin; dose according to finger stick before meals FS 100-199: 5 units FS: 200-249: 6 units FS 250-299: 7 units FS above 300: 8 units ?? total daily short acting insulin dose 30 units ?? Unchanged Isosorbide Mononitrate (isosorbide mononitrate 30 mg oral tablet, extended release) 1 tab(s) Oral Daily at Bedtime Duration: 90 Days Para el paty. ??Noelle antes de acostarse. ?? Unchanged Metoprolol (metoprolol 50 mg oral tablet, extended release) 1 tab(s) Oral Daily at Bedtime Duration: 90 Days para proteger el paty/ ??prevenir palpitaciones Noelle antes de acostarse. ?? Unchanged Miscellaneous Rx (Hand Held Shower Head) See instructions diagnosis: diabetic neuropathy, T1DM. ICD10: E10.42 duration: 99 weeks. Fax to Cheryl ([facility]) ?? Unchanged Miscellaneous Rx (one pair Diabetic Shoes with Inserts) See instructions Wear for diabetic foot care. Diagnosis: Type II DM, ICD10 E11.65. ?? Unchanged Morphine (morphine 15 mg/ 8 to 12 hr oral tablet, extended release) 1 tab(s) Oral Every 12 hours Duration: 28 Days Unchanged Nortriptyline (nortriptyline 10 mg oral capsule) See instructions GEORGE 1 CAPSULA CADA MIGUEL A LA HORA DE DORMIR. *NUEVO MEDICAMENTO PARA DOLOR NEUROPATICO. NO GEORGE JUNTO CON TRAZODONE. PUEDE CAUSAR SEDACION ?? Unchanged Oxycodone (oxyCODONE 10 mg oral tablet) 1 tab(s) Oral Every 6 hours as needed for pain Duration: 28 Days Unchanged Tamsulosin (Flomax 0.4 mg oral capsule) 2 capsule Oral Daily Duration: 90 Days Pharmacy Information [facility]/pharmacy #[id number]: [address], [place] [phone] Prescription Given During Visit Docusate (docusate sodium 100 mg oral tablet) - 1 tablet = 100 mg, By Mouth, 2 times a day, # 60 tablet, 0 Refills, [facility] [place] [address] [phone]?? Finasteride (finasteride 5 mg oral tablet) - 5 mg, By Mouth, Daily, # 30 tablet, 0 Refills, [facility] [place] [address] [phone]?? Meclizine (meclizine 12.5 mg oral tablet) - 25 mg, By Mouth, 3 times a day, # 18 tablet, 0 Refills,[facility] [place] [address] [phone]?? Ondansetron (ondansetron 4 mg oral tablet) - 1 tablet = 4 mg, By Mouth, Every 8 hours, # 30 tablet,0 Refills, [facility] [place] [address] [phone]?? Polyethylene Glycol 3350 (MiraLax oral powder for reconstitution) - 17 Gm, By Mouth, Daily, # 510 Gm, 0 Refills, [facility] [place] [address] [phone]?? Senna (senna - oral tablet) - 2 tablet, By Mouth, Daily at bedtime, # 60 tablet, 0 Refills, [facility] [place] [address] [phone]?? Senna (Senna 8.6 mg oral tablet) - 2 tablet = 17.2 mg, By Mouth, Daily, # 60 tablet, 0 Refills, [facility] [place] [phone]?? Laboratory Results Below is a partial list of the most recent Laboratory test results done prior to this discharge. You may have had other tests and procedures not included in this list. Please discuss all test resultswith your provider. Est Creatinine Clearance - 63.97 mL/min (11/13/2023) Basic Metabolic Panel (11/13/2023) ???Sodium - 135 mmol/L???Potassium - 3.7 mmol/L???Chloride - 99 mmol/L???Bicarbonate Level - 28 mmol/L???Anion Gap - 8???Glucose Level - 183 mg/dL???BUN - 9 mg/dL???Creatinine-Blood - 1.0 mg/dL???Estimated GFR Creatinine - 88 ML/MIN/1.73 M2???Calcium - 8.5 mg/dL BNP (11/11/2023) ???Nt-Probnp - 201 pg/mL BUN (11/12/2023) ???BUN - 12 mg/dL CBC (11/12/2023) ???WBC - 4.5 k/mm3???RBC - 5.05 m/mm3???Hgb - 14.5 Gm/dL???Hct - 42.3 %???MCV - 83.8 femtoliters???MCH - 28.7 pg???MCHC - 34.3 g/dL???Platelet Count - 121 k/mm3???RDW-SD - 38.3 femtoliters???MPV - 12.0 femtoliters???Nucleated RBC (Automated) - 0.0 #/100 WBC'S???Abs. NRBC - 0.0 k/mm3 CBC w/ Differential (11/11/2023) ???WBC - 5.0 k/mm3???RBC - 5.28 m/mm3???Hgb - 14.9 Gm/dL???Hct - 44.4 %???MCV - 84.1 femtoliters???MCH - 28.2 pg???MCHC - 33.6 g/dL???Platelet Count - 145 k/mm3???RDW-SD - 39.0 femtoliters???MPV - 12.3 femtoliters???Nucleated RBC (Automated) - 0.0 #/100 WBC'S???Abs. NRBC - 0.0 k/mm3???Abs. Neut - 3.4 k/mm3???Abs. Lymph - 1.2 k/mm3???Abs. Izard - 0.3 k/mm3???Abs. Eo - 0.1 k/mm3???Abs. Baso - 0.0 k/mm3???Neut % - 67.9 %???Lymph % - 23.7 %???Izard % - 5.2 %???Eos % - 2.8 %???Baso % - 0.4 %???Imm Gran - 0.0 %???Abs. Imm Gran - 0.0 k/mm3 COVID-19, RSV, and Flu A/B, Rapid PCR (11/12/2023) ???Influenza A PCR - NEGATIVE???Influenza B PCR - NEGATIVE???RSV PCR - NEGATIVE???COVID-19 PCR Specimen Source - NASAL???COVID-19 PCR Result - NEGATIVE Creatinine (11/12/2023) ???Creatinine-Blood - 0.8 mg/dL???Estimated GFR Creatinine - 100 ML/MIN/1.73 M2 Electrolytes (11/12/2023) ???Sodium - 138 mmol/L???Potassium - 4.0 mmol/L???Chloride - 100 mmol/L???Bicarbonate Level - 29 mmol/L???Anion Gap - 9 GLUCOSE POC (11/13/2023) ???Glucose, POC - 123 mg/dL Hold Blue Top Tube (11/11/2023) ???Hold Blue Top - SPECIMEN DISCARDED AFTER 4 HOURS. HOLD LAVENDER TUBE (11/13/2023) ???Hold Lavender Top - SPECIMEN DISCARDED AFTER 24 HOURS. Lactate Level (11/11/2023) ???Lactate - 1.6 mmol/L LFT's (11/11/2023) ???Protein, Total - 6.1 Gm/dL???Albumin - 4.0 Gm/dL???Alkaline Phosphatase - 98 units/L???AST (SGOT) - 25 units/L???ALT (SGPT) - 18 units/L???Bilirubin, Total - 1.3 mg/dL???Bilirubin, Direct - 0.4 mg/dL???Bilirubin, Indirect - 0.9 mg/dL Lipase (11/11/2023) ???Lipase - 11 units/L Troponin T, High Sensitivity (11/11/2023) ???High Sensitivity Troponin (HSTnT) - 31 ng/L Urinalysis w/hold for Urine Culture (11/11/2023) ???Appear/Color, Urine - YELLOW???Specific [place], Urine - 1.021???pH, Urine - 5.5???Albumin, Urine - TRACE???Glucose, Urine - 4+???Ketones, Urine - NEGATIVE???Bilirubin, Urine - NEGATIVE???Hemoglobin, Urine - NEGATIVE???Nitrite, Urine - NEGATIVE???Leukocyte, Urine - NEGATIVE???Urobilinogen - 4 mg/dL? ?WBC's, Urine - <1 /HPF? ?RBC's, Urine - <1 /HPF? ?Mucus - SLIGHT? ?Hold Urine Culture - Testing available 48 hours from time of collection. Allergies (NKA means No Known Allergies) metFORMIN??(GI symptoms) Problems Active Problems??(17) Anxiety and depression?? BPH with urinary obstruction?? CAD (coronary artery disease)?? Chronic pain syndrome?? Controlled substance agreement signed 01-19-23?? Diabetic autonomic neuropathy?? Diabetic nephropathy?? Diabetic peripheral neuropathy?? Dysphagia?? Hallucinations?? Hyperlipidemia?? Hypertension?? Ischemic cardiomyopathy EF 40% 04/2022; akinetic apex?? Orthostatic hypotension - severe, resulting in recurrent falls?? T2DM (type 2 diabetes mellitus)?? Thrombocytopenia?? TIA (transient ischemic attack)?? Education Materials Below is the list of Educational Leaflet Providered with your Discharge Instructions. Valuables and Belongings I fully understand and agree that [facility] accepts no responsibility for all my personal property including clothing, toilet articles, radios, jewelry, dentures, hearing aids, rings, money, or any other property that is in my possession or is brought to me after admission. I understand certain valuables may be placed in a hospital safe for a short period of time. I understand that the hospital is not liable for loss or damage due to accident, fire, or other natural occurrence while said property is in the safe. I accept full responsibility for any personal property that I keep with me, and will not hold the hospital responsible in case of loss or disappearance. I acknowledge that i have been encouraged to send valuables and belongings home. ?? No Valuables/Belongings: No valuables/belongings present Review of Valuable and Belonging List: With patient, With witness Date for Pt to Sign Valuables/Belongings: 11/12/23 04:23:00 ?? Other Discharge Information ? Case Management Discharge Plan?? Discharge Plan?? Discharge Agency Information?? Discharge Level of Care at Discharge: Homehealth/VNA Name of Agency #1: [facility] Discharge VNA/Hospice/Home Care: [facility] [phone] Service Categories #1: Senior Care ?? Service Comments #1: [facility] will call you to coordinate time for nurse to visit ?? Pulmonary Rehab Status?? Pulmonary Rehab Discharge Status?? Respiratory Rate: 16 br/min ? Common Emergency Awareness Tips IS IT A STROKE? Act FAST and Check for these signs: FACE Does the face look uneven? ARM Does one arm drift down? SPEECH Does their speech sound strange? TIME Call at any sign of stroke ?? Heart Attack Signs Chest discomfort: Most heart attacks involve discomfort in the center of the chest and lasts more than a few minutes, or goes away and comes back. It can feel like uncomfortable pressure, squeezing, fullness or pain. Discomfort in upper body: Symptoms can include pain or discomfort in one or both arms, back, neck, jaw or stomach. Shortness of breath: With or without discomfort. Other signs: Breaking out in a cold sweat, nausea, or lightheaded. Remember, MINUTES DO MATTER. If you experience any of these heart attack warning signs, call to get immediate medical attention! ?? Smoking can increase your chances of developing chronic health problems and can cause harmful effects to other family members in your house. If you smoke, you are strongly encouraged to quit. Please call [facility] [employer] [facility] at [phone] or [phone] ([phone]) or log in to [email or web address] for referrals to smoking cessation programs. ?? 243 Suicide & Crisis Lifeline is available 05/02 if you or someone you know needs to find a reason to keep living. By calling 457 you'll be connected to a skilled, trained counselor at a crisis center in your area. INPATIENT DISCHARGE INSTRUCTIONS SIGNATURE PAGE [place] ROJO Location:[facility] Registration Date and Time:11/11/2023 18:17 EDT Primary Care Physician: Claire Trujillo MD, Attending Physician: Eloisa Erazo MD, I PARIS ROJO, have received the above patient education materials/instructions and have verbalized understanding. If ambulance or transport services are being used I further acknowledge beinggiven a choice of service. ?? If you need to contact me, please call me at this number: . Patient/Kiln Fireman Name: Patient/Kiln Fireman Signature: Relationship to Patient: Witness Name/Signature: Date: Patient Care team information Care Team Personnel Name: Sorin Moser RN Position: [facility] RN Member Role: Primary Care Nurse Name: Ya Wilson RN Position: [facility] RN Member Role: Primary Care Nurse Name: Brandi Wei RN Position: [facility] RN Member Role: Primary Care Nurse Name: Valentina Leiva RN Position: [facility] RN Member Role: Primary Care Nurse Name: Macarena Bedolla Position: [facility] Outreach Member Role: Lifetime Consulting Physician Name: Abigail Yang RN Position: [facility] Onco RN Member Role: Primary Care Nurse Name: Clarie Trujillo MD Position: [facility] Physician - Primary Care Member Role: PCP Address: Address: [address] [place] [id number]- Name: Heidi Dao Position: [facility] RN Member Role: Primary Care Nurse Care Team Related Persons Name: JOEL BRIZUELA Address: home [address] [place] [id number]
--- OUTSIDE RECORDS SUMMARY | 2023-12-10 00:47 | XMS_ITS | Continuity of Care Document ---
Author Organization [facility] Address [address] [place] [address]- Care Team Providers Care Equipment Installation Professional Name Role Phone Claire Trujillo MD Primary Care Physician [phone] Encounter [facility] Date(s): 03/28/21 - 04/27/[address] [address]- Allergies, Adverse Reactions, Alerts Substance Reaction Severity [...] II DM, ICD10 E11.65. Fax to [facility], 10/28/20 14:47:00 EDT, Supply Start Date: 10/28/20 Status: Ordered empagliflozin 10 mg oral tablet 1 tablet = 10 mg, By Mouth, Daily in AM, # 30 tablet, 2 Refills, Maintenance, 03/10/21 11:43:00 EDT, Tablet, [facility], Partial fill upon patient request [...] PLUS 1 MORE TIME NEEDED FOR SYMPTOMS, [facility] Start Date: 04/21/19 Status: Ordered FREESTYLE LANCETS 100CT See Instructions, # 100 each, Refills 11 Tot. Refills 11, USE DIRECTED FOR TYPE 1 DIABETES, KEVIN,[facility] Start Date: 03/18/19 Status: Ordered [...] 01/06/21 12:38:00 EDT, Route to Pharmacy Electronically, [facility], 163, cm, 01/03/21 10:40:00 EDT, Height, 91, kg, 04/19/20 23:16:00 EDT, Dry Weight Start Date: 01/06/21 Status: Ordered Hand Held Shower Head Hand Held Shower Head, See Instructions, # 1 each, Refills 0, Tot. Refills 0, Maintenance, diagnosis: diabetic neuropathy, T1DM. ICD10: E10.42 duration: 99 weeks. Fax to Cheryl ([facility]), 10/28/20 14:53:00 EDT, Supply Start Date: 10/28/20 Status: Ordered isosorbide mononitrate 60 mg oral tablet, extended release 60 mg, 1, tablet, By Mouth, Daily in AM, # 90 tablet, Refills 3, Tot. Refills 3, Maintenance, 01/03/21 10:57:00 EDT, Route to Pharmacy Electronically, [facility], Partial fill upon patient request if the prescription is for a schedule II opioid drWillis.. Start Date: 01/03/21 Status: Ordered Lantus Solostar Pen 100 units/mL subcutaneous solution = 15 units, Subcutaneous Injection, Daily at bedtime, # 9 mL, 2 Refills, Maintenance, 05/07/20 13:08:00 EDT, Injection, [facility], 163, cm, 04/21/20 22:04:00 EDT, Height, 91, kg, 04/19/20 23:16:00 EDT, Dry Weight Start Date: 05/07/20 Stop Date: 08/05/20 Status: Ordered Lipitor 80 mg oral tablet 1 tablet = 80 mg, By Mouth, Daily at bedtime, # 90 tablet, 3 Refills, Maintenance, 03/07/21 9:07:00EDT, Tablet, [facility]/pharmacy #[id number], Partial fill upon patient request, 164, cm, 03/02/21 8:40:00 EDT, Height, 87.5, kg, 02/10/21 9:00:00 EDT, Dry Weight Start Date: 03/07/21 Stop Date: 03/02/22 Status: Ordered lisinopril 10 mg oral tablet 1, tablet, By Mouth, Daily, # 90 tablet, Refills 1, Route to Pharmacy Electronically, [facility], 164, cm, 03/02/21 8:40:00 EDT, [...] 91kg, 08/26/20 16:56:00 EST, [facility] to [email or web address] Start Date: 08/26/20 Status: Ordered shower bars [...] 01/03/21 10:57:00 EDT, Route to Pharmacy Electronically, [facility], Partial fill upon patient request [...] N-BHCP C are Management Bre Skinner, CC [phone](Confirmed) 02/02/19 Active Thrombocytopenia(Confirmed) Active T2DM (type 2 diabetes mellitus)(Confirmed) Active Social History Social History Type Response Smoking Status Never (less than 100 in lifetime) entered on: 06/19/19 Sex
--- OUTSIDE RECORDS SUMMARY | 2023-12-10 00:47 | XMS_ITS | Continuity of Care Document ---
Author Organization [facility] Address [address] [place] [address]- Care Team Providers Care Grounding Engineer Name Role Phone Claire Trujillo MD Primary Care Physician Encounter [facility] Date(s): 07/05/23 - 08/04/[address] [address]- Allergies, Adverse Reactions, Alerts Substance Reaction Severity Status metFORMIN 1 GI symptoms Active 1GI intolreance Immunizations Given and Recorded Vaccine Date Status Refusal Reason SARS-CoV-2 mRNA (jyrsogq-zilt-chimv) vax 03/03/22 Given SARS-CoV-2 mRNA (ukulicm-wnar-lbchq) vax 08/27/21 Given SARS-CoV-2 (COVID-19) mRNA BNT-162b2 [...] 0 Refills, Maintenance, 11/27/22 11:10:00 EDT, [facility] upon [...] 05/02/23 16:08:00 EDT, Route to Pharmacy Electronically, [facility], Partial fill upon patient request if the pr... Start Date: 05/02/23 Stop Date: 07/01/23 Status: Ordered Flomax 0.4 mg oral capsule 0.8 mg, 2, capsule, By Mouth, Daily, # 180 capsule, Refills 1, Tot. Refills 1, Maintenance, 07/19/23 13:01:00 EST, Route to Pharmacy Electronically, [facility]/pharmacy #[id number], Partial fill upon patient request if the [...] E10.42 duration: 99 weeks. Fax to [facility], 05/11/21 11:23:00 EDT, Supply Start Date: 05/11/21 Status: Ordered Home blood pressure monitor Home blood pressure monitor, See Instructions, # 1 each, Refills 0, Tot. Refills 0, Maintenance, ICD 10 I95.1; E11. 43 ALEIDA: [facility] 12:53:00 EST, Supply Start Date: 05/25/22 Status: Ordered HumaLOG KwikPen 100 units/mL injectable solution See Instructions, Mealtime insulin; dose according to finger stick before meals FS 100-199: 5 unitsFS: 200-249: 6 units FS 250-299: 7 units FS above 300: 8 units, # 15 mL, 1 Refills, 05/15/23 10:16:00 EDT, [facility], No insur... Start Date: 05/15/23 Status: Ordered isosorbide mononitrate 30 mg oral tablet, extended release 30 mg, 1, tablet, By Mouth, Daily at bedtime, Para el paty. Noelle antes de acostarse., # 30 tablet, Refills 3, Tot. Refills 3, Maintenance, 07/19/23 13:01:00 EST, Route to Pharmacy Electronically, [facility]/pharmacy #[id number], Partial fill upon patient reque... Start Date: 07/19/23 Stop Date: 11/16/23 Status: Ordered Jardiance 25 mg oral tablet 1 tablet = 25 mg, By Mouth, Daily in AM, # 30 tablet, 5 Refills, Maintenance, 07/19/23 13:00:00 EST, [facility]/pharmacy #[id number], Partial fill upon patient request [...] 07/13/24 13:01:00 EST, 07/19/23 13:01:00 EST, Injection, [facility]/pharmacy #[id number], increase in dose, 165, cm, 04/16/23 8:59:00 EDT, Heig... Start Date: 07/19/23 Stop Date: 07/13/24 Status: Ordered Lantus Solostar Pen 100 units/mL subcutaneous solution = 23 units, Subcutaneous Injection, Daily at bedtime, Insulina de 24 horas., # 15 mL, 1 Refills, Maintenance, 04/26/24 16:08:00 EDT, Injection, [facility], No insurance (Medicare [...] 07/19/23 13:01:00 EST, Route to Pharmacy Electronically, [facility]/pharmacy #[id number],... Start Date: 07/19/23 Stop Date: 07/13/24 Status: Ordered morphine 15 mg/8 to 12 hr oral tablet, extended release 1 tablet = 15 mg, By Mouth, Every 12 hours, # 56 tablet, 0 Refills, Maintenance, 07/05/23 17:04:00 EST, ER Tablet, [facility]/pharmacy #[id number], Partial fill upon patient request [...] weight: 93kg, 11/21/21 16:40:00 EDT, sent to [facility]. Start Date: 11/21/21 Status: Ordered shower [...] Team Personnel Name: Sorin Moser RN Position: [facility] RN Member Role: Primary Care Nurse Name: Ya Wilson RN Position: [facility] RN Member Role: Primary Care Nurse Name: Brandi Wei RN Position: [facility] RN Member Role: Primary Care Nurse Name: Valentina Leiva RN Position: [facility] SN RN Member Role: Primary Care Nurse Name: Macarena Bedolla Position: [facility] Outreach Member Role: Lifetime Consulting Physician Name: Abigail Nuno RN Position: [facility] Onco RN Member Role: Primary Care Nurse Name: Claire Trujillo MD Position: [facility] Physician - Primary Care Member Role: PCP Address: Address: [address] [place] [address]- Name: Heidi Dao Position: [facility] RN Member Role: Primary Care Nurse Care Team Related Persons Name: JOEL BRIZUELA Address: home [address] [place] [id number]
--- OUTSIDE RECORDS SUMMARY | 2023-12-10 00:47 | XMS_ITS | Continuity of Care Document ---
Author Organization [facility] Address [address] [place] [address]- Care Team Providers Care Talend Etl Developer Name Role Phone Claire Trujillo MD Primary Care Physician [phone] Encounter [facility] Date(s): 10/12/23 - 11/11/[address] [address] Allergies, Adverse Reactions, Alerts Substance Reaction Severity Status metFORMIN 1 GI symptoms Active 1GI intolreance Immunizations Given and Recorded Vaccine Date Status Refusal Reason zoster vaccine, inactivated 1 09/21/23 Recorded tetanus/diphtheria/pertussis, acel(Tdap) 2 09/21/23 Recorded tetanus/diphtheria/pertussis, acel(Tdap) 01/11/17 Given pneumococcal 20-valent conjugate vaccine 3 09/21/23 Recorded SARS-CoV-2 mRNA (heviqsd-mlhl-lsjpc) vax 03/03/22 Given SARS-CoV-2 mRNA (hyoxmit-dubg-bofyd) vax 08/27/21 Given SARS-CoV-2 (COVID-19) mRNA BNT-162b2 [...] Maintenance, 11/27/22 11:10:00 EDT, Lotion, [facility], Partial fill upon patient request if [...] 09/09/23 9:59:00 EST, Route to Pharmacy Electronically, [facility]... Start Date: 09/09/23 Stop Date: 09/03/24 [...] 05/02/23 16:08:00 EDT, Route to Pharmacy Electronically, [facility], Partial fill upon patient request if the pr... Start Date: 05/02/23 Stop Date: 07/01/23 Status: Ordered Flomax 0.4 mg oral capsule 0.8 mg, 2, capsule, By Mouth, Daily, # 180 capsule, Refills 1, Tot. Refills 1, Maintenance, 10/03/23 13:04:00 EDT, [facility]ically[facility], [facility] fill upon patient request [...] E10.42 duration: 99 weeks. Fax to Cheryl ([facility], 05/11/21 11:23:00 EDT, Supply Start [...] 09/09/23 9:57:00 EST, Route to Pharmacy Electronically, [facility], Partial fill upon patien... Start Date: 09/09/23 Stop Date: 09/03/24 Status: Ordered Jardiance 25 mg oral tablet 1 tablet = 25 mg, By Mouth, Daily in AM, # 90 tablet, 3 Refills, Maintenance, 09/09/23 9:59:00 EST,[facility], Partial fill upon patient request if [...] 09/27/24 13:03:00 EDT, 10/03/23 13:03:00 EDT, Injection, [facility]., increase in dose, 166, cm, 09/24/23 15:24:00... Start Date: 10/03/23 Stop Date: 09/27/24 Status: Ordered Lantus Solostar Pen 100 units/mL subcutaneous solution = 23 units, Subcutaneous Injection, Daily at bedtime, Insulina de 24 horas., # 15 mL, 1 Refills, Maintenance, 04/26/24 16:08:00 EDT, Injection, [facility], No insurance (Medicare not active until 06/15). Please dispense via 340B., 165,... Start Date: 04/26/24 Status: Ordered Lipitor 80 mg oral tablet 1 tablet = 80 mg, By Mouth, Daily at bedtime, para colesterol / proteger el paty/ arterias tapadas en el paty, # 90 tablet, 3 Refills, Maintenance, 09/09/23 9:59:00 EST, Tablet, [facility] Partial fill upon patient request, [...] 09/09/23 9:57:00 EST, Route to Pharmacy Electronically, [facility]... Start Date: 09/09/23 Stop Date: 09/03/24 Status: Ordered morphine 15 mg/8 to 12 hr oral tablet, extended release 1 tablet = 15 mg, By Mouth, Every 12 hours, # 56 tablet, 0 Refills, Maintenance, 10/25/23 21:13:00 EDT, ER Tablet, [facility]/pharmacy #[id number], Partial fill upon [...] Acute 11/22/23 21:13:00 EDT, 10/25/23 21:13:00 EDT, [facility]/pharmacy #[id number], Partial fill upon patient request ifthe prescription [...] Team Personnel Name: Sorin Moser RN Position: [facility] RN Member Role: Primary Care Nurse Name: Ya Wilson RN Position: [facility] RN Member Role: Primary Care Nurse Name: Brandi Wei RN Position: [facility] RN Member Role: Primary Care Nurse Name: Valentina Leiva RN Position: [facility] SN RN Member Role: Primary Care Nurse Name: Macarena Bedolla Position: [facility] Outreach Member Role: Lifetime Consulting Physician Name: Abigail Yang RN Position: [facility] Onco RN Member Role: Primary Care Nurse Name: Claire Trujillo MD Position: [facility] Physician - Primary Care Member Role: PCP Address: Address: [address] [place] [id number]- Name: Heidi Dao Position: [facility] RN Member Role: Primary Care Nurse Care Team Related Persons Name: JOEL BRIZUELA Address: [address] [address]
--- OUTSIDE RECORDS SUMMARY | 2023-12-10 00:47 | XMS_ITS | Continuity of Care Document ---
Author Organization [facility] Address [address] [place] [address]- Care Team Providers Care Neuropsychiatric Aide Name Role Phone Claire Trujillo MD Primary Care Physician Encounter [facility] Date(s): 07/19/20 - 08/18/[address] [address] Allergies, Adverse [...] 5 Refills, Maintenance, 08/18/20 16:04:00 EST, Tablet, [facility], 1 tablet By Mouth 2 times a day, 163, cm, 04/21/20 22:04:00 EDT, Height, 91, kg,04/19/20 23:16:00 EDT, Dry Weight Start Date: 08/18/20 Status: Ordered FLUoxetine 20 mg oral capsule 1, capsule, By Mouth, Daily, # 90 capsule, Refills 3, Tot. Refills 3, Maintenance, 11/05/19 18:38:00 EDT, Route to Pharmacy Electronically, [facility], 165, cm, 07/21/19 14:31:00 EST, Height, [...] Maintenance, 08/18/2115:13:00 EST, Route to Pharmacy Electronically, [facility], 163, cm, 04/21/20 22:04:00 EDT, Height, 91, kg, 04/19/20 23:16:00 EDT, Dry Weight Start Date: 08/18/20 Status: Ordered Humalog 100 u/ml subcutaneous injection See Instructions, take before meals (three times a day) per sliding scale 4 units if over 120; 6 at200; 8 at 300; 12 if 400 max 60 units/ day, # 6 mL, 2 Refills, Maintenance, 07/19/20 13:40:00 EST, [facility], d/c [employer];, 163, cm, 04/21/20... Start Date: 07/19/20 Status: Ordered isosorbide mononitrate 30 mg oral tablet, extended release 1 tablet = 30 mg, By Mouth, Daily in AM, # 30 tablet, 11 Refills, Maintenance, 02/23/20 12:51:00 EDT, [facility], 165, cm, 01/12/20 16:41:00 EDT, Height, 91, kg, 06/19/19 16:55:00 EST, Dry Weight Start Date: 02/23/20 Stop Date: 02/17/21 Status: Ordered Lantus Solostar Pen 100 units/mL subcutaneous solution = 15 units, Subcutaneous Injection, Daily at bedtime, # 9 mL, 2 Refills, Maintenance, 05/07/20 13:08:00 EDT, Injection, [facility], 163, cm, 04/21/20 22:04:00 EDT, Height, 91, kg, 04/19/20 23:16:00 EDT, Dry Weight Start Date: 05/07/20 Stop Date: 08/05/20 Status: Ordered Lipitor 80 mg oral tablet 1 tablet = 80 mg, By Mouth, Daily at bedtime, # 90 tablet, 3 Refills, Maintenance, 06/09/20 13:06:00 EST, Tablet, [facility], Partial fill upon patient request, 163, cm, 04/21/20 22:04:00 EDT, Height, 91, kg, 04/19/20 23:16:00 EDT, Dry Weight Start Date: 06/09/20 Stop Date: 06/04/21 Status: Ordered lisinopril 10 mg oral tablet 1, tablet, By Mouth, Daily, # 90 tablet, Refills 3, Tot. Refills 3, Maintenance, 11/05/19 18:37:00 EDT, Route to Pharmacy Electronically, [facility], 165, cm, 07/21/19 14:31:00 EST, Height, [...] 08/04/20 14:13:00 EST, Route to Pharmacy Electronically, [facility], 163, cm, 04/21/20 22:04:00 EDT, Height, [...] BHN-BHCP C are Management Bre Skinner, CC [phone](Confirmed) 02/02/19 Active Thrombocytopenia(Confirmed) Active Type 1 diabetes mellitus(Confirmed) Active Social History Social History Type Response Smoking Status Never (less than 100 in lifetime) entered on: 06/19/19 Sex
--- OUTSIDE RECORDS SUMMARY | 2023-12-10 00:47 | XMS_ITS | Continuity of Care Document ---
Author Organization [facility] Address [address] [place] [address]- Care Team Providers Care Technical Solutions Consultant Name Role Phone Claire Trujillo MD Primary Care Physician [phone] Encounter [facility] Date(s): 07/14/20 - 08/13/[address] [address] Allergies, Adverse Reactions, Alerts Substance [...] 18:38:00 EDT, Route to Pharmacy Electronically, [facility], 165, cm, 07/21/19 14:31:00 EST, Height, 91,kg, 06/19/19 16:55:00 EST, Dry Weight Start Date: 11/05/19 Stop Date: 10/30/20 Status: Ordered FREESTYLE SHELLIE LITE See Instructions, # 100 each, Refills 10 Tot. Refills 10, USE TO CHECK BLOOD SUGARS 3 TIMES A DAY WITH MEALS PLUS 1 MORE TIME NEEDED FOR SYMPTOMS, [facility] Start Date: 04/21/19 Status: Ordered FREESTYLE LANCETS 100CT See Instructions, # 100 each, Refills 11 Tot. Refills 11, USE DIRECTED FOR TYPE 1 DIABETES, KEVIN,[facility] Start Date: 03/18/19 Status: Ordered Freestyle [...] mL, 2 Refills, Maintenance, 07/19/20 13:40:00 EST, [facility], d/c [employer];, 163, cm, 04/21/20... Start [...] 11/05/19 18:37:00 EDT, Route to Pharmacy Electronically, [facility], 165, cm, 07/21/19 14:31:00 EST, Height, [...] 08/04/20 14:13:00 EST, Route to Pharmacy Electronically, [facility], 163, cm, 04/21/20 22:04:00 EDT, Height, [...] BHN-CP C are Management Bre Skinner, CC [phone](Confirmed) 02/02/19 Active Thrombocytopenia(Confirmed) Active Type 1 diabetes mellitus(Confirmed) Active Social History Social History Type Response Smoking Status Never (less than 100 in lifetime) entered on: 06/19/19 Sex
--- OUTSIDE RECORDS SUMMARY | 2023-12-10 00:48 | XMS_ITS | Continuity of Care Document ---
Author Organization [facility] ter Address [address] [place] [address]- Care Team Providers Care Human Services Manager Name Role Phone Claire Trujillo MD Primary Care Physician [phone] Encounter [facility] Date(s): 09/02/23 - 09/02/[address] [address]- Discharge Disposition: A-D/C Home Attending Physician: Marilyn Webber MD Admitting Physician: Marilyn Webber MD Referring Physician: Not on Staff, Referring MD Allergies, Adverse Reactions, Alerts Substance Reaction Severity Status metFORMIN 1 GI symptoms Active 1GI intolreance Immunizations Given and Recorded Vaccine Date Status Refusal Reason SARS-CoV-2 mRNA (tmwiiqa-wdwu-qpbxy) vax 03/03/22 Given SARS-CoV-2 mRNA (unvpxvu-jdlu-mzguq) vax 08/27/21 Given SARS-CoV-2 (COVID-19) mRNA BNT-162b2 [...] 0 Refills, Maintenance, 11/27/22 11:10:00 EDT, [facility] upon [facility] request [...] EDT, Supply Start Date: 05/04/22 Status: Ordered Dilaudid Inj 1 mg, Injection, IV Push Slowly, Every 15 minutes for 3 doses/times, PRN for Pain , Moderate, and SBP greater than 100, STAT, 09/02/23 13:55:00 EST, Stop date Limited # of times Start Date: 09/02/23 Status: Ordered disinfectant wipes disinfectant wipes, See [...] 05/02/23 16:08:00 EDT, Route to Pharmacy Electronically, [facility], Partial fill upon patient request if the pr... Start Date: 05/02/23 Stop Date: 07/01/23 Status: Ordered Flomax 0.4 mg oral capsule 0.8 mg, 2, capsule, By Mouth, Daily, # 180 capsule, Refills 1, Tot. Refills 1, Maintenance, 07/19/23 13:01:00 EST, Route to Pharmacy Electronically, [facility]/pharmacy #[id number], Partial fill upon patient request if the [...] weeks. Fax to Cheryl ([facility]), 05/11/21 11:23:00 EDT, Supply Start Date: 05/11/21 Status: Ordered Home blood pressure monitor Home blood pressure monitor, See Instructions, # 1 each, Refills 0, Tot. Refills 0, Maintenance, ICD 10 I95.1; E11. 43 ALEIDA: [facility]22 12:53:00 EST, Supply Start Date: 05/25/22 Status: Ordered HumaLOG KwikPen 100 units/mL injectable solution See Instructions, Mealtime insulin; dose according to finger stick before meals FS 100-199: 5 unitsFS: 200-249: 6 units FS 250-299: 7 units FS above 300: 8 units, # 15 mL, 1 Refills, 05/15/23 10:16:00 EDT, [facility] No [facility]... Start Date: 05/15/23 Status: Ordered isosorbide mononitrate 30 mg oral tablet, extended release 30 mg, 1, tablet, By Mouth, Daily at bedtime, Para el paty. Noelle antes de acostarse., # 30 tablet, Refills 3, Tot. Refills 3, Maintenance, 07/19/23 13:01:00 EST, [id number] Partial fill upon patient reque... Start Date: 07/19/23 Stop Date: 11/16/23 Status: Ordered Jardiance 25 mg oral tablet 1 tablet = 25 mg, By Mouth, Daily in AM, # 30 tablet, 5 Refills, Maintenance, 07/19/23 13:00:00 EST, [id number] Partial fill upon patient request if [...] 07/13/24 13:01:00 EST, 07/19/23 13:01:00 EST, [facility]jection[id number], increase in dose, 165, cm, 04/16/23 8:59:00 EDT, Heig... Start Date: 07/19/23 Stop Date: 07/13/24 Status: Ordered Lantus Solostar Pen 100 units/mL subcutaneous solution = 23 units, Subcutaneous Injection, Daily at bedtime, Insulina de 24 horas., # 15 mL, 1 Refills, Maintenance, 04/26/24 16:08:00 EDT, Injection, [facility], No insurance (Medicare not active until 06/15). Please dispense via 340B., 165,... Start Date: 04/26/24 Status: Ordered Lipitor 80 mg oral tablet 1 tablet = 80 mg, By Mouth, Daily at bedtime, para colesterol / proteger el paty/ arterias tapadas en el paty, # 90 tablet, 3 Refills, Maintenance, 07/19/23 13:00:00 EST, Tablet, [facility]/pharmacy #[id number], Partial fill upon patient request, 165, [...] 07/19/23 13:01:00 EST, Route to Pharmacy Electronically, [facility]/pharmacy #[id number],... Start Date: 07/19/23 Stop Date: 07/13/24 Status: Ordered morphine 15 mg/8 to 12 hr oral tablet, extended release 1 tablet = 15 mg, By Mouth, Every 12 hours, # 56 tablet, 0 Refills, Maintenance, 08/07/23 9:48:00 EST, ER Tablet, [facility]/pharmacy #[id number], Partial fill upon patient request if the prescription is for a schedule II opioid drug. in addition to oxycodone ; ;... Start Date: 08/07/23 Stop Date: 09/04/23 Status: Ordered nortriptyline 10 mg oral capsule [...] days, # 112 tablet, 0 Refills, Acute 09/04/23 9:48:00 EST, 08/07/23 9:48:00 EST, [facility]/pharmacy #[id number], Partial fill upon patient request if the prescription is for a schedule II opioid drug. ;... Start Date: 08/07/23 Stop Date: 09/04/23 Status: Ordered pullups - adult size medium [...] Exam Date Time Procedure Performing Provider Status 09/02/23 2:56 PM Sacrum and Coccyx Min 2 Views Kellee Gilbert; Auth (Verified) Notes: (Sacrum and Coccyx Min 2 Views) Reason For Exam: with Pain;Trauma RESULT: Sacrum and Coccyx Min 2 Views Sacrum and coccyx 3 views dated September 02, 2023. No prior studies are available. HISTORY: Pain. FINDINGS: This examination shows no evidence of fracture or dislocation. Some minimal subchondral sclerosis and osteophyte formation is noted in the SI joints right greater than left and there is subchondral sclerosis and osteophyte formation in the hips left greater than right. 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 No evidence of acute osseous abnormality. Thank you for allowing me to participate in the care of this patient. WSN: [id number] Ordering Physician: Robson Yoo Dictated By: Naveen Nugent MD Dictated Date/Time: 09/02/23 3:01 pm Reviewed By: Naveen Nugent MD Signed By: Naveen Nugent MD Signed Date/Time: 09/02/23 3:01 pm Transcribed By: CRISPIN Transcribed Date/Time: 09/02/23 3:01 pm * Exam Date Time Procedure Performing Provider Status 09/02/23 2:23 PM US RUQ Rajeev Sera; Auth (Christopher ified) Notes: (US RUQ) Reason For Exam: Abdominal Pain;Other: RESULT: US RUQ US RUQ Hx of Present Illness: 63-year-old male with generalized weakness, chest pain with breathing in , nausea and reports 2 episodes of diarrhea,c o dry cough and headache. Denies any fever; Reason: Other:; Abdominal Pain; Clinical Question(s): Cholecystitis COMPARISON: RIGHT upper quadrant ultrasound April 19, 2020, enhanced CT of abdomen and pelvis activity. FINDINGS: Liver: Normal in size and echotexture. No focal lesion. Smooth hepatic contour. Main portal vein patent with normal hepatopetal direction of flow. Gallbladder: No gallstones. There is thickening of the gallbladder wall measuring up to 0.5 cm but no adjacent fluid is noted. There is no sonographic Hardwick's sign but the patient is medicated. Biliary Tree: No intrahepatic or extrahepatic bile duct dilation is identified. Common duct measures: 0.3 cm. Pancreas: Obscured by gas. Right kidney: 11.0 cm in length. Normal parenchymal echotexture and thickness. No hydronephrosis, stone or mass. IMPRESSION: Gallbladder wall thickening without cholelithiasis or biliary ductal dilatation. The patient was medicated possibly explaining a negative sonographic Hardwick sign. Acute calculus cholecystitis is not excluded. Consider hepatobiliary nuclear medicine scan. Pancreas obscured by gas. Otherwise unremarkable RIGHT upper quadrant ultrasound. Thank you for allowing me to participate in the care of this patient. An actionable message (Yellow) has been communicated via the [employer] system on 09/02/2023 2:40 PM, Message ID [id number]. WSN: [id number] Ordering Physician: Robson Yoo Dictated By: Saman Alvarez MD Dictated Date/Time: 09/02/23 2:40 pm Reviewed By: Saman Alvarez MD Signed By: Saman Alvarez MD Signed Date/Time: 09/02/23 2:40 pm Transcribed By: CRISPIN Transcribed Date/Time: 09/02/23 2:23 pm * Exam Date Time Procedure Performing Provider Status 09/02/23 1:17 PM Chest Portable Cady Thayer; Radha (Verified) Notes: (Chest Portable) Reason For Exam: Angina RESULT: Chest Portable PROCEDURE: Chest Portable CLINICAL INDICATION: 63 years old Male with Reason: Angina; Clinical Question(s): CHF. COMPARISON: Chest radiographs December 02, 2021. FINDINGS: Portable AP erect view of the chest performed at 1:08 PM. Lines and tubes: Several EKG leads project over the chest. Lungs and pleura: Lungs are clear as visualized. No pleural effusions.No evidence of pneumothorax. Heart, mediastinum and meagan: The cardiomediastinal silhouette and pulmonary vasculature are unremarkable. No cardiomegaly or pulmonary venous hypertension. Bones and soft tissues: Mild degenerative changes thoracic spine. Mild degenerative changes LEFT lateral humeral joint. IMPRESSION: 1. No evidence of acute cardiopulmonary disease. Thank you for allowing me to participate in the care of this patient. WSN: [id number] Ordering Physician: Robson Yoo Dictated By: Saman Alvarez MD Dictated Date/Time: 09/02/23 1:26 pm Reviewed By: Saman Alvarez MD Signed By: Saman Alvarez MD Signed Date/Time: 09/02/23 1:26 pm Transcribed By: CRISPIN Transcribed Date/Time: 09/02/23 1:23 pm Vital Signs Most recent to oldest [Reference Range]: 1 2 3 Height 166 cm (09/02/23 1:08 PM) 166 cm (09/02/23 12:37 PM) Weight 77 kg (09/02/23 1:08 PM) 77 kg (09/02/23 12:37 PM) Oxygen Saturation [94-100 %] 100 % (09/02/23 8:33 PM) 100 % (09/02/23 6:41 PM) 100 % (09/02/23 3:32 PM) Pulse Rate [55-90 bpm] 66 bpm (09/02/23 8:33 PM) 59 bpm (09/02/23 6:41 PM) 65 bpm (09/02/23 3:32 PM) Body Mass Index [18.5-24.99 kg/m2] 27.94 kg/m2 *H* (09/02/23 12:37 PM) Blood Pressure [90-138/55-84 mm Hg] 151/72mm Hg *H* (09/02/23 8:33 PM) 142/71mm Hg *H* (09/02/23 6:41 PM) 156/77mm Hg *H* (09/02/23 3:32 PM) Respiratory Rate [16-30 br/min] 14 br/min *L* (09/02/23 8:33 PM) 12 br/min *L* (09/02/23 6:41 PM) 14 br/min *L* (09/02/23 3:58 PM) Temperature [96.8-100.4 DegF] 97.5 DegF (09/02/23 6:41 PM) 98 DegF (09/02/23 12:36 PM) Mode of Delivery (Oxygen) Room air (09/02/23 8:33 PM) Room air (09/02/23 6:41 PM) Room air (09/02/23 3:32 PM) Blood pressure sites Arm, left (09/02/23 12:36 PM) Temperature Route Oral (09/02/23 6:41 PM) Oral (09/02/23 12:36 PM) Dry Weight 77 kg (09/02/23 1:08 PM) 77 kg (09/02/23 12:37 PM) Weight Obtained Via Patient/family state d (09/02/23 12:37 PM) Dry Weight Obtained Via Patient/family s tated (09/02/23 12:37 PM) Social History Social History Type Response Smoking Status Never (less than 100 in lifetime) entered on: 06/19/19 Sex EKG study * Event Display: ECG 12-Lead Authored Date: Please click on pdf link to open report * Event Display: ECG 12-Lead Authored Date: Ventricular Rate: 64 BPM Atrial Rate: 64 BPM P-R Interval: 150 ms QRS Duration: 90 ms Q-T Interval: 408 ms QTC Calculation(Bazett): 420 ms P Carroll: 19 degrees R Carroll: -49 degrees T Carroll: 174 degrees Normal sinus rhythm with sinus arrhythmia Left axis deviation Anteroseptal infarct (cited on or before 19-JUN-2019) T wave abnormality, consider lateral ischemia Abnormal ECG When compared with ECG of 06-JUN-2022 14:55, Premature atrial complexes are no longer Present Questionable change in initial forces of Anterior leads Confirmed by HELEN DE LA ROSA MD ([id number]) on 09/02/2023 5:48:21 PM Scribner: HELEN DE LA ROSA MD Note * Robson Newsome: PERFORM, SIGN, VERIFY Event Display: Patient Education Handout Authored Date: [id number] * Robson Newsome: PERFORM Event Display: Patient Education Leaflets Authored Date: [id number] Chest Pain, Uncertain Cause ?? [id number] Causas inciertas de dolor de pecho El dolor de pecho puede producirse por numerosas razones. En algunos casos, no se puede determinar la causa. Si ma afecci??n no parece grave y el dolor no parece venir del coraz??n, ma proveedor de atenci??n m??dica puede recomendar un seguimiento de cerca. A veces, los signos de un problema grave tardan m??s en aparecer. Muchas afecciones no relacionadas con el coraz??n pueden causar dolor de pecho. Por ejemplo: ??? Musculoesquel??jaleesa. Costocondritis, noah inflamaci??n de los tejidos alrededor de las costillas que puede ocurrir por trauma o lesiones por uso excesivo, o noah distensi??n de los m??sculos de lapared tor??cica. ??? Respiratorias. Neumon??a, pulm??n colapsado (neumot??rax) o inflamaci??n del re vestimiento del pecho y los pulmones (pleuritis). ??? Gastrointestinales. Reflujo esof??gico, acidez estomacal, ??lceras o enfermedad de la ves??cula biliar. ??? Ansiedad y ataques de p??prudencio ??? Compresi??n e inflamaci??n de un nervio ??? Afecciones poco frecuentes linda aneurisma a??rtico o disecci??n a??rtica (noah hinchaz??n de la arteria lilia que sale del coraz??n o un desgarro en la pared de la arteria) o embolia pulmonar (co??gulos de leonard en los pulmones). Cuidados en el hogar Luego de ma visita, preste atenci??n a las siguientes recomendaciones: ??? Descanse hoy y evite toda actividad agotadora. ??? Vandling el medicamento recetado seg??n le hayan indicado. ??? Est?? atento acualquier dolor de pecho recurrente y observe cualquier cambio ?? Visita de seguimiento Programe noah visita de control con ma proveedor de atenci??n m??dica si no empieza a sentirse mejoren las siguientes 24??horas, o seg??n lo que le indiquen. ?? Cu??ndo llamar al?? 911 Llame al?? 911 si ocurre algo de lo siguiente: ??? Cambio en el tipo de dolor: se siente diferente,se grimm vuelto m??s grave, dura m??s o comienza a esparcirse hacia el hombro, el brazo, el jewel, lamand??bula o la espalda ??? Falta de aire o dolor creciente al respirar ??? Debilidad, mareos o desmayos ??? Ritmo card??aco acelerado ??? Sensaci??n de aplastamiento en el pecho ??? Tos con cantidadabundante de leonard ?? Cu??ndo buscar atenci??n m??dica Llame a ma proveedor de atenci??n m??dica de inmediato ante cualquiera de los siguientes signos o s??ntomas: ??? Tos con expulsi??n de esputo (flema) de color oscuro o con un poco de leonard ??? Fiebre de 100.4?F (38?C) o superior, o seg??n le haya indicado ma proveedor de atenci??n m??dica ??? Dolor, enrojecimiento o hinchaz??n de noah pierna ?? Last Reviewed Date: 2021 ?? [id number] [facility]. Todos los derechos reservados. Esta informaci??n no pretende sustituir la atenci??n m??dica profesional. S??lo ma m??dico puede diagnosticar y tratar un problema de anjana. ?? Patient Care team information Care Team Personnel Name: Sorin Moser RN Position: [facility] RN Member Role: Primary Care Nurse Name: Ya Wilson RN Position: [facility] RN Member Role: Primary Care Nurse Name: Brandi Wei RN Position: [facility] RN Member Role: Primary Care Nurse Name: Valentina Leiva RN Position: [facility] SN RN Member Role: Primary Care Nurse Name: Macarena Bedolla Position: [facility] Outreach Member Role: Lifetime Consulting Physician Name: Abigail Nuno RN Position: [facility] Onco RN Member Role: Primary Care Nurse Name: Claire Trujillo MD Position: [facility] Physician - Primary Care Member Role: PCP Address: Address: [address] [place] [address]- Name: Heidi Dao Position: [facility] RN Member Role: Primary Care Nurse Care Team Related Persons Name: JOEL BRIZUELA Address: [place] [address] [place] [id number]
--- OUTSIDE RECORDS SUMMARY | 2023-12-10 00:48 | XMS_ITS | Continuity of Care Document ---
Author Organization [facility] Address [address] [place] [address]- Care Team Providers Care Assistant Grocery Store Manager Name Role Phone Claire Trujillo MD Primary Care Physician Encounter [facility] Date(s): 08/17/21 - 09/16/[address] [address]- Allergies, Adverse Reactions, Alerts Substance Reaction Severity Status metFORMIN 1 GI symptoms Active 1GI intolreance Immunizations Given and Recorded Vaccine Date Status Refusal Reason SARS-CoV-2 mRNA (zzjfqog-vhas-jdvmn) vax 08/27/21 Given SARS-CoV-2 (COVID-19) mRNA BNT-162b2 [...] E11.9 duration: 52 weeks, 08/10/21 14:27:00 EST, [facility], 164, cm, 03/02/21 8:40:00 EDT, [...] tablet, 1 Refills, Maintenance, 08/10/21 14:27:00 EST, [facility], 164, cm, 03/02/21 8:40:00 EDT, Height, [...] 60 tablet, 5 Refills, 08/10/21 14:27:00 EST, [facility] 30, 1 tablet By Mouth 2 times a day, 164, cm, 03/02/21 8:40:00 EDT, Height, 87.5, kg, 02/10/21 9:00:00 EDT, Dry Weight Start Date: 08/10/21 Status: Ordered Diabetic Shoes with Inserts Diabetic Shoes with Inserts, See Instructions, # 2 each, Refills 0, Tot. Refills 0, Maintenance, Wear for diabetic foot care. Diagnosis: Type II DM, ICD10 E11.65. Fax to [facility], 10/28/20 14:47:00 EDT, Supply Start Date: [...] PLUS 1 MORE TIME NEEDED FOR SYMPTOMS, [facility] Start Date: 04/21/19 Status: Ordered FREESTYLE LANCETS 100CT See Instructions, # 100 each, Refills 11 Tot. Refills 11, USE [facility]ETES[facility]: 03/18/19 Status: Ordered Freestyle [...] Maintenance, 08/10/2213:27:00 EST, Route to Pharmacy Electronically, [facility], 164, cm, 03/02/21 8:40:00 EDT, Height, 87.5, kg, 02/10/21 9:00:00 EDT, Dry... Start Date: 08/10/21 Status: Ordered Hand Held Shower Head Hand Held Shower Head, See Instructions, # 1 each, Refills 0, Tot. Refills 0, Maintenance, diagnosis: diabetic neuropathy, T1DM. ICD10: E10.42 duration: 99 weeks. Fax to Cheryl ([facility]), 05/11/21 11:23:00 EDT, Supply Start Date: 05/11/21 Status: Ordered isosorbide mononitrate 60 mg oral tablet, extended release 60 mg, 1, tablet, By Mouth, Daily in AM, # 30 tablet, Refills 2, Tot. Refills 2, Maintenance, 08/10/21 14:27:00 EST, Route to Pharmacy Electronically, [facility], Partial fill upon patient request if the prescription is for a schedule... Start Date: 08/10/21 Status: Ordered Jardiance 10 mg oral tablet 1 tablet, By Mouth, Daily in AM, # 30 tablet, 2 Refills, 08/10/21 14:27:00 EST, [facility], 164, cm, 03/02/21 8:40:00 EDT, Height, 87.5, kg, 02/10/21 9:00:00 EDT, Dry Weight Start Date: 08/10/21 Status: Ordered Lantus Solostar Pen 100 units/mL subcutaneous solution = 15 units, Subcutaneous Injection, Daily at bedtime, # 9 mL, 2 Refills, Maintenance, 05/07/20 13:08:00 EDT, Injection, [facility], 163, cm, 04/21/20 22:04:00 EDT, Height, 91, kg, 04/19/20 23:16:00 EDT, Dry Weight Start Date: 05/07/20 Stop Date: 08/05/20 Status: Ordered Lantus Solostar Pen 100 units/mL subcutaneous solution See Instructions, INJECT 15 UNITS SUBCUTANEOUSLY DAILY AT BEDTIME, # 15 mL, 2 Refills, 08/10/21 14:27:00 EST, [facility], 164, cm, 03/02/21 8:40:00 EDT, Height, 87.5, kg, 02/10/21 9:00:00 EDT, Dry Weight Start Date: 08/10/21 Status: Ordered Lipitor 80 mg oral tablet 1 tablet = 80 mg, By Mouth, Daily at bedtime, # 30 tablet, 1 Refills, Maintenance, 08/10/21 14:27:00 EST, Tablet, [facility], Partial fill upon patient request, 164, cm, 03/02/21 8:40:00 EDT, Height, 87.5, kg, 02/10/21 9:00:00 EDT, Dry... Start Date: 08/10/21 Stop Date: 02/06/22 Status: Ordered lisinopril 10 mg oral tablet 1, tablet, By Mouth, Daily, # 30 each, Refills 1, Tot. Refills 1, 08/10/21 14:27:00 EST, Route to Pharmacy Electronically, [facility], 164, cm, 03/02/21 8:40:00 EDT, Height, [...] Mouth, Daily, # 90 tablet, 3 Refills, [facility], 164, cm, 03/02/21 8:40:00 EDT,Height, 87.5, [...] 08/26/21 13:58:00 EST, Route to Pharmacy Electronically, [facility], Partial fill upon patient request if the prescription is for a schedule II opi... Start Date: 08/26/21 Status: Ordered traZODone 50 mg oral tablet 1, tablet, By Mouth, Daily at bedtime, PRN, # 30 tablet, Refills 2, Tot. Refills 2, Maintenance, ASNEEDED FOR SLEEP, 08/10/21 14:27:00 EST, Route to Pharmacy Electronically, [facility], 164, cm, 03/02/21 8:40:00 EDT, Height, [...] BHN-BHCP C are Management Bre Skinner, CC [phone](Confirmed) 02/02/19 Active Thrombocytopenia(Confirmed) Active T2DM (type 2 diabetes mellitus)(Confirmed) Active Social History Social History Type Response Smoking Status Never (less than 100 in lifetime) entered on: 06/19/19 Sex
--- OUTSIDE RECORDS SUMMARY | 2023-12-10 00:48 | XMS_ITS | Continuity of Care Document ---
Author Organization [facility] Address [address] [place] [address]- Care Team Providers Care [employer] Professional Name Role Phone Claire Trujillo MD Primary Care Physician Encounter [facility] [place] Date(s): 06/21/20 - 07/21/[address] [address] Allergies, Adverse Reactions, Alerts Substance Reaction Severity [...] 11/05/19 18:38:00 EDT, Route to Pharmacy Electronically, [facility], 165, cm, 07/21/19 14:31:00 EST, Height, 91,kg, 06/19/19 16:55:00 EST, Dry Weight Start Date: 11/05/19 Stop Date: 10/30/20 Status: Ordered FREESTYLE SHELLIE LITE See Instructions, # 100 each, Refills 10 Tot. Refills 10, USE TO CHECK BLOOD SUGARS 3 TIMES A DAY WITH MEALS PLUS 1 MORE TIME NEEDED FOR SYMPTOMS, [facility] Start Date: 04/21/19 Status: Ordered FREESTYLE LANCETS 100CT See Instructions, # 100 each, Refills 11 Tot. Refills 11, USE DIRECTED FOR TYPE 1 DIABETES, KEVIN,[facility] Start Date: 03/18/19 Status: Ordered [...] Date: 07/28/19 Stop Date: 07/22/20 Status: Ordered Humalog 100 u/ml subcutaneous injection See Instructions, take before meals (three times a day) per sliding scale 4 units if over 120; 6 at200; 8 at 300; 12 if 400 max 60 units/ day, # 6 mL, 2 Refills, Maintenance, 07/19/20 13:40:00 EST, [facility];, 163, cm, 04/21/20... Start [...] 11/05/19 18:37:00 EDT, Route to Pharmacy Electronically, [facility], 165, cm, 07/21/19 14:31:00 EST, Height, [...] 02/03/20 10:00:00 EDT, Route to Pharmacy Electronically, [facility], 165, cm, 01/12/20 16:41:00 EDT, Height, [...] Active Care coordination BHN-CP C are Management rBe Skinner, CC [phone](Confirmed) 02/02/19 Active Thrombocytopenia(Confirmed) Active Type 1 diabetes mellitus(Confirmed) Active Social History Social History Type Response Smoking Status Never (less than 100 in lifetime) entered on: 06/19/19 Sex
--- OUTSIDE RECORDS SUMMARY | 2023-12-10 00:48 | XMS_ITS | Continuity of Care Document ---
Author Organization [facility] Address [address] [place] [address]- Care Team Providers Care Slip Laster Name Role Phone Claire Trujillo MD Primary Care Physician [phone] Encounter [facility]CT [facility] [id number] Date(s): 11/21/21 - 12/21/[address] [address]- Attending Physician: Uche Urena Admitting Physician: AdmUche sheth Referring Physician: AdmtrUche Allergies, Adverse Reactions, Alerts Substance Reaction Severity Status metFORMIN 1 GI symptoms Active 1GI intolreance Immunizations Given and Recorded Vaccine Date Status Refusal Reason SARS-CoV-2 mRNA ([id number]-[id number]) vax 08/27/21 Given SARS-CoV-2 (COVID-19) mRNA BNT-162b2 [...] tablet, 1 Refills, Maintenance, 10/17/21 10:37:00 EDT, [facility], 164, cm, 03/02/21 8:40:00 EDT, Height, [...] Refills, 08/10/21 14:27:00 EST, [facility] 30, 1 tablet By Mouth 2 times a day, 164, cm, 03/02/21 8:40:00 EDT, Height, 87.5, kg, 02/10/21 9:00:00 EDT, Dry Weight Start Date: 08/10/21 Status: Ordered Diabetic Shoes with Inserts Diabetic Shoes with Inserts, See Instructions, # 2 each, Refills 0, Tot. Refills 0, Maintenance, Wear for diabetic foot care. Diagnosis: Type II DM, ICD10 E11.65. Fax to [facility], 10/28/20 14:47:00 EDT, Supply Start [...] 11, USE DIRECTED FOR TYPE 1 DIABETES, KEVIN,[facility] Start Date: 03/18/19 Status: Ordered Freestyle [...] capsule, Refills 2, Route to Pharmacy Electronically, [facility], 164, cm, 03/02/21 8:40:00 EDT, Height, 87.5, kg, 02/10/21 9:00:00 EDT, Dry Weight Start Date: 11/14/21 Status: Ordered Hand Held Shower Head Hand Held Shower Head, See Instructions, # 1 each, Refills 0, Tot. Refills 0, Maintenance, diagnosis: diabetic neuropathy, T1DM. ICD10: E10.42 duration: 99 weeks. Fax to Cheryl ([facility]), 05/11/21 11:23:00 EDT, Supply Start Date: 05/11/21 Status: Ordered isosorbide mononitrate 60 mg oral tablet, extended release 60 mg, 1, tablet, By Mouth, Daily in AM, # 30 tablet, Refills 5, Tot. Refills 5, Maintenance, 11/14/21 12:33:00 EDT, Route to Pharmacy Electronically, [facility], Partial fill upon patient request if the prescription is for a schedule... Start Date: 11/14/21 Status: Ordered Jardiance 10 mg oral tablet 1 tablet, By Mouth, Daily in AM, # 30 tablet, 2 Refills, 11/14/21 12:32:00 EDT, [facility], 164, cm, 03/02/21 8:40:00 EDT, Height, 87.5, kg, 02/10/21 9:00:00 EDT, Dry Weight Start Date: 11/14/21 Status: Ordered Lantus Solostar Pen 100 units/mL subcutaneous solution = 15 units, Subcutaneous Injection, Daily at bedtime, # 9 mL, 2 Refills, Maintenance, 05/07/20 13:08:00 EDT, Injection, [facility], 163, cm, 04/21/20 22:04:00 EDT, Height, 91, kg, 04/19/20 23:16:00 EDT, Dry Weight Start Date: 05/07/20 Stop Date: 08/05/20 Status: Ordered Lantus Solostar Pen 100 units/mL subcutaneous solution See Instructions, INJECT 15 UNITS SUBCUTANEOUSLY DAILY AT BEDTIME, # 15 mL, 2 Refills, 08/10/21 14:27:00 EST, [facility], 164, cm, 03/02/21 8:40:00 EDT, Height, 87.5, kg, 02/10/21 9:00:00 EDT, Dry Weight Start Date: 08/10/21 Status: Ordered Lipitor 80 mg oral tablet 1 tablet = 80 mg, By Mouth, Daily at bedtime, # 30 tablet, 5 Refills, Maintenance, 10/17/21 10:36:00 EDT, Tablet, [facility], Partial fill upon patient request, 164, cm, 03/02/21 8:40:00 EDT, Height, 87.5, kg, 02/10/21 9:00:00 EDT, Dry... Start Date: 10/17/21 Status: Ordered lisinopril 10 mg oral tablet 1, tablet, By Mouth, Daily, # 30 each, Refills 5, Tot. Refills 5, 10/17/21 10:36:00 EDT, Route to Pharmacy Electronically, [facility], 164, cm, 03/02/21 8:40:00 EDT, Height, [...] Mouth, Daily, # 90 tablet, 3 Refills, [facility], 164, cm, 03/02/21 8:40:00 EDT,Height, 87.5, [...] 08/26/20 16:56:00 EST, sent to [facility]. Start Date: 08/26/20 Status: Ordered rollator walker w/ 4 wheels, seat and brakes rollator walker w/ 4 wheels, seat and brakes, See Instructions, # 1 each, Refills 0, Tot. Refills 0, Maintenance, dx: diabetes with neuropathy ICD10: E11.40 duration: 99 weeks height: 164cm weight: 93kg, 11/21/21 16:40:00 EDT, sent to [facility]. Start Date: 11/21/21 Status: Ordered shower [...] 08/26/21 13:58:00 EST, Route to Pharmacy Electronically, [facility], Partial fill upon patient request if the prescription is for a schedule II opi... Start Date: 08/26/21 Status: Ordered traZODone 50 mg oral tablet 1, tablet, By Mouth, Daily at bedtime, PRN, # 30 tablet, Refills 5, Tot. Refills 5, Maintenance, ASNEEDED FOR SLEEP, 11/14/21 12:34:00 EDT, Route to Pharmacy Electronically, [facility], 164, cm, 03/02/21 8:40:00 EDT, Height, [...] BHN-BHCP C are Management Bre Skinner, CC [phone](Confirmed) 02/02/19 Active Thrombocytopenia(Confirmed) Active T2DM (type 2 diabetes mellitus)(Confirmed) Active Social History Social History Type Response Smoking Status Never (less than 100 in lifetime) entered on: 06/19/19 Sex
--- OUTSIDE RECORDS SUMMARY | 2023-12-10 00:48 | XMS_ITS | Continuity of Care Document ---
Author Organization [facility] Address [address] [place] [address]- Care Team Providers Care Rivet Driver Name Role Phone Claire Trujillo MD Primary Care Physician [phone] Encounter [facility] Date(s): 05/14/23 - 06/13/[address] [address]- Allergies, Adverse Reactions, Alerts Substance Reaction Severity Status metFORMIN 1 GI symptoms Active 1GI intolreance Immunizations Given and Recorded Vaccine Date Status Refusal Reason SARS-CoV-2 mRNA (dhsppbf-sptq-yncou) vax 03/03/22 Given SARS-CoV-2 mRNA (entlmwu-gljv-wbqfo) vax 08/27/21 Given SARS-CoV-2 (COVID-19) mRNA BNT-162b2 [...] 0 Refills, Maintenance, 11/27/22 11:10:00 EDT, [facility] upon [...] 05/02/23 16:07:00 EDT, Route to Pharmacy Electronically, [facility]... Start Date: 05/02/23 Stop Date: 04/26/24 Status: [...] 05/02/23 16:08:00 EDT, Route to Pharmacy Electronically, [facility], Partial fill upon patient request if the pr... Start Date: 05/02/23 Stop Date: 07/01/23 Status: Ordered Flomax 0.4 mg oral capsule 0.8 mg, 2, capsule, By Mouth, Daily, # 180 capsule, Refills 1, Tot. Refills 1, Maintenance, 05/02/23 16:07:00 EDT, Route to Pharmacy Electronically, [facility], Partial fill upon patient [...] E10.42 duration: 99 weeks. Fax to Cheryl ([facility]), 05/11/21 11:23:00 EDT, Supply Start Date: 05/11/21 Status: Ordered Home blood pressure monitor Home blood pressure monitor, See Instructions, # 1 each, Refills 0, Tot. Refills 0, Maintenance, ICD 10 I95.1; E11. 43 ALEIDA: [facility] 05/25/22 12:53:00 EST, Supply Start Date: 05/25/22 Status: Ordered HumaLOG KwikPen 100 units/mL injectable solution See Instructions, Mealtime insulin; dose according to finger stick before meals FS 100-199: 5 unitsFS: 200-249: 6 units FS 250-299: 7 units FS above 300: 8 units, # 15 mL, 1 Refills, 05/15/23 10:16:00 EDT, [facility] No [facility]ur... Start Date: 05/15/23 Status: Ordered isosorbide mononitrate 30 mg oral tablet, extended release 30 mg, 1, tablet, By Mouth, Daily at bedtime, Para el paty. Noelle antes de acostarse., # 30 tablet, Refills 3, Tot. Refills 3, Maintenance, 05/02/23 16:07:00 EDT, Route to Pharmacy Electronically, [facility], Partial fill upon telma... Start Date: 05/02/23 Stop Date: 08/30/23 Status: Ordered Jardiance 25 mg oral tablet 1 tablet = 25 mg, By Mouth, Daily in AM, # 30 tablet, 5 Refills, Maintenance, 05/02/23 16:09:00 EDT, [facility], Partial fill upon patient [...] 04/26/24 16:08:00 EDT, 05/02/23 16:08:00 EDT, Injection, [facility], increase in dose, 165, cm, 04/16/23 8:59:00... Start Date: 05/02/23 Stop Date: 04/26/24 Status: Ordered Lantus Solostar Pen 100 units/mL subcutaneous solution = 23 units, Subcutaneous Injection, Daily at bedtime, Insulina de 24 horas., # 15 mL, 1 Refills, Maintenance, 04/26/24 16:08:00 EDT, [facility], No insurance (Medicare not active until 06/15). Please dispense via 340B., 165,... Start Date: 04/26/24 Status: Ordered Lipitor 80 mg oral tablet 1 tablet = 80 mg, By Mouth, Daily at bedtime, para colesterol / proteger el paty/ arterias tapadas en el paty, # 90 tablet, 3 Refills, Maintenance, 05/02/23 16:08:00 EDT, Tablet, [facility], Partial fill upon patient [...] 05/02/23 16:08:00 EDT, [facility] Pharmacy Electronically, [facility]... Start Date: 05/02/23 Stop Date: 04/26/24 Status: Ordered morphine 15 mg/8 to 12 hr oral tablet, extended release 1 tablet = 15 mg, By Mouth, Every 12 hours, # 56 tablet, 0 Refills, Maintenance, 05/16/23 13:46:00 EDT, ER Tablet, [id number], Partial fill upon patient request if the prescription is for a schedule II opioid drug. in addition to oxycodone ; o... Start Date: 05/16/23 Stop Date: 06/13/23 Status: Ordered morphine 15 mg/8 to 12 hr oral tablet, extended release 1 tablet = 15 mg, By Mouth, Every 12 hours, # 56 tablet, 0 Refills, Maintenance, 06/04/23 13:46:00 EST, ER Tablet, [id number], Partial fill upon patient request if the prescription is for a schedule II opioid drug. in addition to oxycodone ; f... Start Date: 06/04/23 Stop Date: 07/02/23 Status: Ordered one pair Diabetic Shoes with [...] tablet, Refills 0, Tot. Refills 0, Acute 07/02/23 13:45:00 EST, for pain, 06/04/23 13:45:00 EST, Route to Pharmacy Electronically, [id number], Partial fill upon patient request... Start Date: 06/04/23 Stop Date: 07/02/23 Status: Ordered pullups - adult size medium [...] 93kg, 11/21/21 16:40:00 EDT, sent to [facility]. Start Date: 11/21/21 Status: Ordered shower [...] Care Nurse Name: Ya Wilson RN Position: [facility] Physician - Primary Care Member Role: PCP Address: Address: [address] [place] [id number] Name: Heidi Dao Position: [facility] RN Member Role: Primary Care Nurse Care Team Related Persons Name: GELACIO JOEL Address: home [address] [place], [place] [address]
--- OUTSIDE RECORDS SUMMARY | 2023-12-10 00:48 | XMS_ITS | Continuity of Care Document ---
Author Organization [facility] Address [address] [place] [address]- Care Team Providers Care Anesthesiology Resident Name Role Phone Claire Trujillo MD Primary Care Physician Encounter [facility] Date(s): 10/27/22 - 11/26/[address] [address]- Allergies, Adverse Reactions, Alerts Substance Reaction Severity Status metFORMIN 1 GI symptoms Active 1GI intolreance Immunizations Given and Recorded Vaccine Date Status Refusal Reason SARS-CoV-2 mRNA (bcswnwi-pzsb-hcyrr) vax 03/03/22 Given SARS-CoV-2 mRNA (xffnbjk-cksj-sszfh) vax 08/27/21 Given SARS-CoV-2 (COVID-19) mRNA BNT-162b2 [...] EDT, Route to Pharmacy Electronically, [facility]. Start Date: 05/04/22 Status: Ordered Bactrim DS 800 mg-160 mg oral tablet 1 tablet, By Mouth, Every 12 hours, for 7 days, # 14 tablet, 0 Refills, Acute 11/30/22 14:14:00 EDT, 11/23/22 14:14:00 EDT, [facility] Partial fill upon patient request if the prescription is for a schedule II opioid drug., 1 tablet B... Start Date: 11/23/22 Stop Date: 11/30/22 Status: Ordered bed liners bed liners, See [...] Moderate, Apply to legs for diabetic neuropathy. [place] sig, # 60 Gm, 1 Refills, Maintenance, 06/06/22 9:44:00 EST, Cream, [facility], Partial fill upon patient request if [...] 10/16/22 13:34:00 EDT, Route to Pharmacy Electronically, [facility], Partial fill upon patient request if [...] E10.42 duration: 99 weeks. Fax to Cheryl ([facility]), 05/11/21 11:23:00 EDT, Supply Start Date: 05/11/21 Status: Ordered Home blood pressure monitor Home blood pressure monitor, See Instructions, # 1 each, Refills 0, Tot. Refills 0, Maintenance, ICD 10 I95.1; E11. 43 ALEIDA: 99 Bring rx to [facility], 05/25/22 12:53:00 EST, Supply Start Date: 05/25/22 Status: Ordered HumaLOG KwikPen 100 units/mL injectable solution See Instructions, Mealtime insulin; dose according to finger stick before meals FS 100-199: 5 unitsFS: 200-249: 6 units FS 250-299: 7 units FS above 300: 8 units, # 15 mL, 11 Refills, 06/01/22 10:46:00 EST, [facility], 165, cm... Start Date: 06/01/22 Status: Ordered Jardiance 25 mg oral tablet 1 tablet = 25 mg, By Mouth, Daily in AM, # 30 tablet, 5 Refills, Maintenance, 11/08/22 15:44:00 EDT, [facility], Partial fill upon patient request if the prescription is for a schedule II opioid drug., 165, cm, 09/04/22 13:02:00 EST, H... Start Date: 11/08/22 Stop Date: 05/07/23 Status: Ordered Lantus Solostar Pen 100 units/mL subcutaneous solution = 18 units, Subcutaneous Injection, Daily at bedtime, Insulina de 24 horas., # 15 mL, 11 Refills, Maintenance, 09/13/22 12:18:00 EST, Injection, [facility]., 165, cm, 09/04/22 13:02:00EST, Height, 84.2, kg, 05/21/22 0:51:00 EDT, Dry We... Start Date: 09/13/22 Stop Date: 09/08/23 Status: Ordered Lipitor 80 mg oral tablet 1 tablet = 80 mg, By Mouth, Daily at bedtime, para colesterol / proteger el paty/ arterias tapadas en el paty, # 30 tablet, 11 Refills, Maintenance, 05/04/22 10:23:00 EDT, Tablet, [facility], Partial fill upon patient request, 16... [...] 05/04/22 10:27:00 EDT, Route to Pharmacy Electronically, [facility]... Start Date: 05/04/22 Status: Ordered nortriptyline [...] weight: 93kg, 11/21/21 16:40:00 EDT[facility] Start Date: 11/21/21 Status: Ordered shower bars [...] Team Personnel Name: Sorin Moser RN Position: [facility] RN Member Role: Primary Care Nurse Name: Brandi Wei RN Position: [facility] RN Member Role: Primary Care Nurse Name: Ya Collier RN Position: [facility] PCO RN Member Role: Primary Care Nurse Name: Valentina Leiva RN Position: [facility] SN RN Member Role: Primary Care Nurse Name: Macarena Bedolla Position: [facility] Outreach Member Role: Lifetime Consulting Physician Name: Abigail Nuno RN Position: [facility] Onco RN Member Role: Primary Care Nurse Name: Claire Trujillo MD Position: [facility] Primary Care Physician Member Role: PCP Address: Address: [address] [place] [address]- Name: Heidi Dao Position: [facility] RN Member Role: Primary Care Nurse Care Team Related Persons Name: JOEL BRIZUELA Address: [address] [address]
--- OUTSIDE RECORDS SUMMARY | 2023-12-10 00:48 | XMS_ITS | Continuity of Care Document ---
Author Organization [facility] Address [address] [place] [address]- Care Team Providers Care Room Service Clerk Name Role Phone Claire Trujillo MD Primary Care Physician Encounter [facility] ACCT [facility] [id number] Date(s): 08/27/21 - 09/26/[address] [address]- Attending Physician: Uche Urena Admitting Physician: AdmUche sheth Referring Physician: AdmtrUche Allergies, Adverse Reactions, Alerts Substance Reaction Severity Status metFORMIN 1 GI symptoms Active 1GI intolreance Immunizations Given and Recorded Vaccine Date Status Refusal Reason SARS-CoV-2 mRNA (gxahikn-[id number]) vax 08/27/21 Given SARS-CoV-2 (COVID-19) mRNA BNT-162b2 [...] E11.9 duration: 52 weeks, 08/10/21 14:27:00 EST, [facility], 164, cm, 03/02/21 8:40:00 EDT, Height, [...] tablet, 1 Refills, Maintenance, 08/10/21 14:27:00 EST, [facility], 164, cm, 03/02/21 8:40:00 EDT, Height, [...] 60 tablet, 5 Refills, 08/10/21 14:27:00 EST, [facility] 30, 1 tablet By Mouth 2 times a day, 164, cm, 03/02/21 8:40:00 EDT, Height, 87.5, kg, 02/10/21 9:00:00 EDT, Dry Weight Start Date: 08/10/21 Status: Ordered Diabetic Shoes with Inserts Diabetic Shoes with Inserts, See Instructions, # 2 each, Refills 0, Tot. Refills 0, Maintenance, Wear for diabetic foot care. Diagnosis: Type II DM, ICD10 E11.65. Fax to [facility], 10/28/20 14:47:00 EDT, Supply [...] PLUS 1 MORE TIME NEEDED FOR SYMPTOMS, [facility] Start Date: 04/21/19 Status: Ordered FREESTYLE [...] 9... Start Date: 01/13/20 Status: Ordered FREESTYLE VLADISLVA 14 DAY SENSOR FREESTYLE VLADISLAV 14 DAY [...] Maintenance, 08/10/2213:27:00 EST, [facility] 164, cm, 03/02/21 8:40:00 EDT, Height, 87.5, kg, 02/10/21 9:00:00 EDT, Dry... Start Date: 08/10/21 Status: Ordered Hand Held Shower Head Hand Held Shower Head, See Instructions, # 1 each, Refills 0, Tot. Refills 0, Maintenance, diagnosis: diabetic neuropathy, T1DM. ICD10: E10.42 duration: 99 weeks. Fax to Cheryl ([facility]), 05/11/21 11:23:00 EDT, Supply Start Date: 05/11/21 Status: Ordered isosorbide mononitrate 60 mg oral tablet, extended release 60 mg, 1, tablet, By Mouth, Daily in AM, # 30 tablet, Refills 2, Tot. Refills 2, Maintenance, 08/10/21 14:27:00 EST, Route to Pharmacy Electronically, [facility], Partial fill upon patient request if the prescription is for a schedule... Start Date: 08/10/21 Status: Ordered Jardiance 10 mg oral tablet 1 tablet, By Mouth, Daily in AM, # 30 tablet, 2 Refills, 08/10/21 14:27:00 EST, [facility], 164, cm, 03/02/21 8:40:00 EDT, Height, 87.5, kg, 02/10/21 9:00:00 EDT, Dry Weight Start Date: 08/10/21 Status: Ordered Lantus Solostar Pen 100 units/mL subcutaneous solution = 15 units, Subcutaneous Injection, Daily at bedtime, # 9 mL, 2 Refills, Maintenance, 05/07/20 13:08:00 EDT, Injection, [facility], 163, cm, 04/21/20 22:04:00 EDT, Height, 91, kg, 04/19/20 23:16:00 EDT, Dry Weight Start Date: 05/07/20 Stop Date: 08/05/20 Status: Ordered Lantus Solostar Pen 100 units/mL subcutaneous solution See Instructions, INJECT 15 UNITS SUBCUTANEOUSLY DAILY AT BEDTIME, # 15 mL, 2 Refills, 08/10/21 14:27:00 EST, [facility], 164, cm, 03/02/21 8:40:00 EDT, Height, 87.5, kg, 02/10/21 9:00:00 EDT, Dry Weight Start Date: 08/10/21 Status: Ordered Lipitor 80 mg oral tablet 1 tablet = 80 mg, By Mouth, Daily at bedtime, # 30 tablet, 1 Refills, Maintenance, 08/10/21 14:27:00 EST, Tablet, [facility], Partial fill upon patient request, 164, cm, 03/02/21 8:40:00 EDT, Height, 87.5, kg, 02/10/21 9:00:00 EDT, Dry... Start Date: 08/10/21 Stop Date: 02/06/22 Status: Ordered lisinopril 10 mg oral tablet 1, tablet, By Mouth, Daily, # 30 each, Refills 1, Tot. Refills 1, 08/10/21 14:27:00 EST, Route to Pharmacy Electronically, [facility], 164, cm, 03/02/21 8:40:00 EDT, Height, [...] # 90 tablet, 3 Refills, [facility], 164, cm, 03/02/21 8:40:00 EDT,Height, 87.5, kg, [...] weight: 91kg, 08/26/20 16:56:00 EST, sent to [facility]... Start Date: 08/26/20 Status: Ordered [...] 08/26/21 13:58:00 EST, Route to Pharmacy Electronically, [facility], Partial fill upon patient request if the prescription is for a schedule II opi... Start Date: 08/26/21 Status: Ordered traZODone 50 mg oral tablet 1, tablet, By Mouth, Daily at bedtime, PRN, # 30 tablet, Refills 2, Tot. Refills 2, Maintenance, ASNEEDED FOR SLEEP, 08/10/21 14:27:00 EST, Route to Pharmacy Electronically, [facility], 164, cm, 03/02/21 8:40:00 EDT, Height, [...] N-CP C are Management Bre Skinner, CC [phone](Confirmed) 02/02/19 Active Thrombocytopenia(Confirmed) Active T2DM (type 2 diabetes mellitus)(Confirmed) Active Social History Social History Type Response Smoking Status Never (less than 100 in lifetime) entered on: 06/19/19 Sex
--- OUTSIDE RECORDS SUMMARY | 2023-12-10 00:48 | XMS_ITS | Continuity of Care Document ---
Author Organization [facility] ter Address [address] [place] [id number]- Care Team Providers Care Screw Machine Setter Name Role Phone Claire Trujillo MD Primary Care Physician Encounter [facility] Date(s): 06/21/20 - 06/21/[address] [address] Encounter Diagnosis Acute hyperglycemia(Final) - 06/21/20 Acute chest pain(Final) - 06/21/20 Discharge Disposition: A-D/C Home Attending Physician: Franklyn Pantoja MD Admitting Physician: Franklyn Pantoja MD Referring Physician: Not on Staff, Referring [...] 120; 6 at 200; 8 at 300; 12 if 400 max 60 units/ day, # 6 mL, 2 Refills, Maintenance, 06/21/20 12:54:00 EST, Injection, [facility], 163, cm, 04/21/20 22:04:00 EDT, Height, 91, kg, 04/19/20 23:16:00 EDT, Dry Weight Start Date: 06/21/20 Status: Ordered Alcohol Pads See Instructions, # [...] 0 Refills, Soft Stop, 03/30/20 18:04:00 EDT, [facility], please direct refill requests to PCP (Cassandra WHITE, Claire), 165, cm, 01/12/20 16:41:00 EDT, Height, 91, kg, 06/19/19 16:55:00 ES... Start Date: 03/30/20 Status: Ordered blood pressure cuff blood pressure [...] 11/05/19 18:38:00 EDT, Route to Pharmacy Electronically, [facility], 165, cm, 07/21/19 14:31:00 EST, Height, [...] 11, USE DIRECTED FOR TYPE 1 DIABETES, [facility] Start Date: 03/18/19 Status: Ordered Freestyle [...] 11/05/19 18:37:00 EDT, Route to Pharmacy Electronically, [facility], 165, cm, 07/21/19 14:31:00 EST, Height, [...] 02/03/20 10:00:00 EDT, Route to Pharmacy Electronically, [facility], 165, cm, 01/12/20 16:41:00 EDT, Height, [...] N-CP C are Management Bre Skinner, CC [phone](Confirmed) 02/02/19 Active Thrombocytopenia(Confirmed) Active Type 1 diabetes mellitus(Confirmed) Active Results Radiology Reports * Exam Date Time Procedure Performing Provider Status 06/21/20 2:03 PM Chest Portable Eloisa Barlow; Au th (Verified) Notes: (Chest Portable) Reason For Exam: L sided chest pain;Other: RESULT: Chest Portable Examination: Portable chest performed on 06/21/2020. History: Elevated glucose. Chest pain. Findings: A frontal view of the chest is compared to a prior study dated 04/19/2020. The cardiac and mediastinal silhouettes are within normal limits. The lungs are clear. The osseous and soft tissue structures are unremarkable. IMPRESSION: There is no acute cardiopulmonary disease. WSN: [id number] Ordering Physician: Franklyn Pantoja Dictated By: Lisa Pineda MD Dictated Date/Time: 06/21/20 2:16 pm Reviewed By: Lisa Pineda MD Signed By: Lisa Pineda MD Signed Date/Time: 06/21/20 2:16 pm Transcribed By: CRISPIN Transcribed Date/Time: 06/21/20 2:16 pm Vital Signs Most recent to oldest [Reference Range]: 1 2 3 Oxygen Saturation [94-100 %] 99 % (06/21/20 6:30 PM) 98 % (06/21/20 2:28 PM) 100 % (06/21/20 11:46 AM) Pulse Rate [55-90 bpm] 59 bpm (06/21/20 6:30 PM) 56 bpm (06/21/20 2:28 PM) 58 bpm (06/21/20 11:46 AM) Blood Pressure [90-138/55-84 mm Hg] 106/64mm Hg (06/21/20 6:30 PM) 98/66mm Hg (06/21/20 2:28 PM) 112/58mm Hg (06/21/20 11:46 AM) Respiratory Rate [16-30 br/min] 18 br/min (06/21/20 6:30 PM) 17 br/min (06/21/20 2:28 PM) 19 br/min (06/21/20 11:46 AM) Temperature [96.8-100.4 DegF] 98.0 DegF (06/21/20 11:46 AM) Mode of Delivery (Oxygen) Room air (06/21/20 6:30 PM) Room air (06/21/20 2:28 PM) Room air (06/21/20 11:46 AM) Blood pressure sites Arm, left (06/21/20 6:30 PM) Arm, right (06/21/20 2:28 PM) Temperature Route Oral (06/21/20 11:46 AM) Social History Social History Type Response Smoking Status Never (less than 100 in lifetime) entered on: 06/19/19 Sex
--- OUTSIDE RECORDS SUMMARY | 2023-12-10 00:48 | XMS_ITS | Continuity of Care Document ---
Author Organization [facility] ter Address [address] [place] [address]- Care Team Providers Care [employer] Name Role Phone Claire Trujillo MD Primary Care Physician Encounter [facility] Date(s): 04/19/20 - 04/21/[address] [address]- [facility] Encounter Diagnosis Hyperglycemia due to diabetes mellitus(Final) - 04/19/20 Type 1 diabetes(Final) - 04/19/20 Discharge Disposition: A-D/C Home Attending Physician: Roslyn Patel MD Admitting Physician: Amina Cooley MD Referring Physician: Not on Staff, Referring [...] 0 Refills, Soft Stop, 03/30/20 18:04:00 EDT, [facility], please direct refill requests to PCP (Cassandra WHITE, Claire), 165, cm, 01/12/20 16:41:00 EDT, Height, 91, kg, 06/19/19 16:55:00 ES... Start Date: 03/30/20 Status: Ordered FLUoxetine 20 mg oral capsule 1, capsule, By Mouth, Daily, # 90 capsule, Refills 3, Tot. Refills 3, Maintenance, 11/05/19 18:38:00 EDT, Route to Pharmacy Electronically, [facility], 165, cm, 07/21/19 14:31:00 [...] 11, USE DIRECTED FOR TYPE 1 DIABETES, KEVIN,[facility] Start Date: 03/18/19 Status: [...] 07/28/19 15:59:00 EST, Route to Pharmacy Electronically, [facility], 165, cm, 07/21/19 14:31:00 EST, Height, 91,... Start Date: 07/28/19 Stop Date: 07/22/20 Status: Ordered isosorbide mononitrate 30 mg oral tablet, extended release 1 tablet = 30 mg, By Mouth, Daily in AM, # 30 tablet, 11 Refills, Maintenance, 02/23/20 12:51:00 EDT, [facility], 165, cm, 01/12/20 16:41:00 EDT, [...] 11/05/19 18:37:00 EDT, Route to Pharmacy Electronically, [facility], 165, cm, 07/21/19 14:31:00 [...] 02/03/20 10:00:00 EDT, Route to Pharmacy Electronically, [facility], 165, cm, 01/12/20 16:41:00 EDT, Height, [...] N-CP C are Management Bre Skinner, CC [phone](Confirmed) 02/02/19 Active Thrombocytopenia(Confirmed) Active Type 1 diabetes mellitus(Confirmed) Active Results Radiology Reports * Exam Date Time Procedure Performing Provider Status 04/19/20 2:59 PM Chest 2 Views Frontal and Lat Kibe , M on[place]; Auth (Verified) Notes: (Chest 2 Views Frontal and Lat) Reason For Exam: Cough RESULT: Chest 2 Views Frontal and Lat Chest 2 Views Frontal and Lat INDICATION: Pt p w left anterior chest pain and nausea COMPARISON: Multiple priors, most recent 06/19/2019 FINDINGS: LINES AND TUBES: None. LUNGS AND PLEURA: Clear lungs. Normal pulmonary vascularity. No pleural effusion. No pneumothorax. HEART, MEDIASTINUM AND JESUS: Heart is normal in size. Normal mediastinal and hilar contour. BONES AND SOFT TISSUES: No acute osseous abnormality. Mild degenerative changes of the visualized spine. IMPRESSION: No radiographic evidence of acute cardiopulmonary abnormality. I have personally reviewed the images and I agree with this report. WSN: [id number] Ordering Physician: Mecca Jackson Dictated By: Wayne Navarro MD Dictated Date/Time: 04/19/20 4:17 pm Reviewed By: Chace Escobar MD Signed By: Chace Escobar MD Signed Date/Time: 04/19/20 4:22 pm Transcribed By: CRISPIN Transcribed Date/Time: 04/19/20 3:32 pm Vital Signs Most recent to oldest [Reference Range]: 1 2 3 Height 163 cm (04/21/20 10:04 PM) 163 cm (04/21/20 3:06 PM) 163 cm (04/21/20 11:15 AM) Weight 91 kg (04/19/20 11:16 PM) Oxygen Saturation [94-100 %] 97 % (04/21/20 10:04 PM) 99 % (04/21/20 3:06 PM) 99 % (04/21/20 11:15 AM) Pulse Rate [55-90 bpm] 115 bpm *H* (04/21/20 10:04 PM) 68 bpm (04/21/20 3:06 PM) 57 bpm (04/21/20 11:15 AM) Body Mass Index [18.5-24.99] 34.25 *>HHI* (04/19/20 11:16 PM) Blood Pressure [90-138/55-84 mm Hg] 126/59mm Hg (04/21/20 10:04 PM) 103/61mm Hg (04/21/20 3:06 PM) 120/69mm Hg (04/21/20 11:15 AM) Respiratory Rate [16-30 br/min] 18 br/min (04/21/20 10:04 PM) 18 br/min (04/21/20 3:06 PM) 18 br/min (04/21/20 11:22 AM) Temperature [96.8-100.4 DegF] 98.4 DegF (04/21/20 10:04 PM) 98.5 DegF (04/21/20 3:06 PM) 97.3 DegF (04/21/20 11:15 AM) Mode of Delivery (Oxygen) Room air (04/21/20 10:04 PM) Room air (04/21/20 3:06 PM) Room air (04/21/20 11:15 AM) Blood pressure sites Arm, right (04/21/20 10:04 PM) Arm, right (04/21/20 3:06 PM) Arm, right (04/21/20 11:15 AM) Temperature Route Oral (04/21/20 10:04 PM) Oral (04/21/20 3:06 PM) Oral (04/21/20 11:15 AM) Dry Weight 91 kg (04/19/20 11:16 PM) Social History Social History Type Response Smoking Status Never (less than 100 in lifetime) entered on: 06/19/19 Sex
--- OUTSIDE RECORDS SUMMARY | 2023-12-10 00:48 | XMS_ITS | Continuity of Care Document ---
Author Organization [facility] Address [address] [place] [address]- Care Team Providers Care Hog Killer Name Role Phone Claire Trujillo MD Primary Care Physician [phone] Encounter [facility] Date(s): 06/10/19 - 10/08/19 [facility] [address] [place] [address]- [facility] Attending Physician: Ben Wilson MD Admitting Physician: Ben Wilson MD Referring Physician: Claire Trujillo MD Allergies, [...] 1 Refills, Maintenance, 08/20/19 16:14:00 EST, Tablet, [facility], 1 tablet By Mouth 2 [...] 07/28/19 15:59:00 EST, Route to Pharmacy Electronically, [facility], [...] 08/28/19 12:08:00 EST, Route to Pharmacy Electronically, [facility], 165, cm, 07/21/19 14:31:00 EST, Height, 91, kg, 06/19/19 16:55:00 EST, Dry Weight Start Date: 08/28/19 Stop Date: 02/24/20 Status: Ordered Problem List Condition Effective Dates Status Health Status Inform ant Diabetic peripheral neuropathy(Confirmed) Active Diabetic nephropathy(Confirmed) Active Dysphagia(Confirmed) Active Hallucinations(Confirmed) Active Hypertension(Confirmed) Active Anxiety and depression(Confirmed) Active Care coordination N-CP C are Management Bre Skinner, CC [phone](Confirmed) 02/02/19 Active Thrombocytopenia(Confirmed) Active Type 1 diabetes mellitus(Confirmed) Active Social History Social History Type Response Smoking Status Never (less than 100 in lifetime) entered on: 06/19/19 Sex
--- OUTSIDE RECORDS SUMMARY | 2023-12-10 00:48 | XMS_ITS | Continuity of Care Document ---
Author Organization [facility] Address [address] [place] [address]- Care Team Providers Care Stamping Operator Name Role Phone Claire Trujillo MD Primary Care Physician Encounter [facility] Date(s): 01/19/20 - 02/18/[address] [address]- [facility] Allergies, Adverse Reactions, Alerts Substance Reaction Severity [...] 5 Refills, Maintenance, 01/26/20 15:36:00 EDT, Tablet, [facility]/pharm[facility] #[id number], 1 tablet By Mouth 2 times a day, 165, cm, 01/12/20 16:41:00 EDT, Height, 91,kg, 06/19/19 16:55:00 EST, Dry Weight Start Date: 01/26/20 Status: Ordered FLUoxetine 20 mg oral capsule 1, capsule, By Mouth, Daily, # 90 capsule, Refills 3, Tot. Refills 3, Maintenance, 11/05/19 18:38:00 EDT, Route to Pharmacy Electronically, [facility], 165, cm, 07/21/19 14:31:00 EST, [...] 07/28/19 15:59:00 EST, Route to Pharmacy Electronically, [facility], 165, cm, 07/21/19 14:31:00 EST, Height, [...] 11/05/19 18:37:00 EDT, Route to Pharmacy Electronically, [facility], 165, cm, 07/21/19 14:31:00 EST, Height, [...] N-BHCP C are Management Bre Skinner, CC [phone](Confirmed) 02/02/19 Active Thrombocytopenia(Confirmed) Active Type 1 diabetes mellitus(Confirmed) Active Social History Social History Type Response Smoking Status Never (less than 100 in lifetime) entered on: 06/19/19 Sex
--- OUTSIDE RECORDS SUMMARY | 2023-12-10 00:48 | XMS_ITS | Continuity of Care Document ---
Author Organization [facility] Address [address] [place] [address]- Care Team Providers Care Vulcanizer Rubber Plate Name Role Phone Claire Trujillo MD Primary Care Physician [place] [facility] [place]s): 07/05[place]20 - 08/04/20 [facility] [address] [place] [id number] Attending Physician: AdmUche sheth Admitting Physician: Admtr, [...] 1 Refills, Soft Stop, 06/30/20 18:54:00 EST, [facility], 163, cm, 04/21/20 22:04:00 EDT, Height, [...] 11/05/19 18:38:00 EDT, Route to Pharmacy Electronically, [facility], 165, cm, 07/21/19 14:31:00 EST, Height, 91,kg, 06/19/19 16:55:00 EST, Dry Weight Start Date: 11/05/19 Stop Date: 10/30/20 Status: Ordered FREESTYLE SHELLIE LITE See Instructions, # 100 each, Refills 10 Tot. Refills 10, USE TO CHECK BLOOD SUGARS 3 TIMES A DAY WITH MEALS PLUS 1 MORE TIME NEEDED FOR SYMPTOMS, [facility] Start Date: 04/21/19 Status: Ordered FREESTYLE LANCETS 100CT See Instructions, # 100 each, Refills 11 Tot. Refills 11, USE DIRECTED FOR TYPE 1 DIABETES, KEVIN,[facility] Start Date: 03/18/19 Status: Ordered Freestyle [...] cm, 07/21/19 14:31:00 EST, Height, 91, kg, 120... Start Date: 01/07/20 Status: Ordered Freestyle Vladislav [...] mL, 2 Refills, Maintenance, 07/19/20 13:40:00 EST, [facility], [facility];, 163, cm, 04/21/20... Start [...] 11/05/19 18:37:00 EDT, Route to Pharmacy Electronically, [facility], 165, cm, 07/21/19 14:31:00 EST, Height, [...] 08/04/20 14:13:00 EST, Route to Pharmacy Electronically, [facility], 163, cm, 04/21/20 22:04:00 EDT, Height, [...] BHN-BHCP C are Management Bre Skinner, CC [phone](Confirmed) 02/02/19 Active Thrombocytopenia(Confirmed) Active Type 1 diabetes mellitus(Confirmed) Active Social History Social History Type Response Smoking Status Never (less than 100 in lifetime) entered on: 06/19/19 Sex
--- OUTSIDE RECORDS SUMMARY | 2023-12-10 00:48 | XMS_ITS | Continuity of Care Document ---
Author Organization [facility] Address [address] [place] [address]- Care Team Providers Care Piano Refinisher Name Role Phone Claire Trujillo MD Primary Care Physician Encounter [facility] Date(s): 04/18/21 - 05/18/21 [facility] [address] [place] [address]- Allergies, Adverse Reactions, Alerts Substance Reaction Severity [...] II DM, ICD10 E11.65. Fax to Cheryl [facility], 10/28/20 14:47:00 EDT, Supply Start Date: 10/28/20 Status: Ordered empagliflozin 10 mg oral tablet 1 tablet = 10 mg, By Mouth, Daily in AM, # 30 tablet, 2 Refills, Maintenance, 03/10/21 11:43:00 EDT, Tablet, [facility], Partial fill upon patient request if [...] 1 MORE TIME NEEDED FOR SYMPTOMS, [facility] Start Date: 04/21/19 Status: Ordered FREESTYLE LANCETS 100CT See Instructions, # 100 each, Refills 11 Tot. Refills 11, USE DIRECTED FOR TYPE 1 DIABETES, KEVIN,[facility] Start Date: 03/18/19 Status: Ordered Freestyle [...] 01/06/21 12:38:00 EDT, Route to Pharmacy Electronically, [facility], 163, cm, 01/03/21 10:40:00 EDT, Height, 91, kg, 04/19/20 23:16:00 EDT, Dry Weight Start Date: 01/06/21 Status: Ordered Hand Held Shower Head Hand Held Shower Head, See Instructions, # 1 each, Refills 0, Tot. Refills 0, Maintenance, diagnosis: diabetic neuropathy, T1DM. ICD10: E10.42 duration: 99 weeks. Fax to Cheryl ([facility]), 05/11/21 11:23:00 EDT, Supply Start Date: 05/11/21 Status: Ordered isosorbide mononitrate 60 mg oral tablet, extended release 60 mg, 1, tablet, By Mouth, Daily in AM, # 90 tablet, Refills 3, Tot. Refills 3, Maintenance, 01/03/21 10:57:00 EDT, Route to Pharmacy Electronically, [facility], Partial fill upon patient request if the prescription is for a schedule II opioid . Start Date: 01/03/21 Status: Ordered Lantus Solostar Pen 100 units/mL subcutaneous solution = 15 units, Subcutaneous Injection, Daily at bedtime, # 9 mL, 2 Refills, Maintenance, 05/07/20 13:08:00 EDT, Injection, [facility], 163, cm, 04/21/20 22:04:00 EDT, Height, 91, kg, 04/19/20 23:16:00 EDT, Dry Weight Start Date: 05/07/20 Stop Date: 08/05/20 Status: Ordered Lipitor 80 mg oral tablet 1 tablet = 80 mg, By Mouth, Daily at bedtime, # 90 tablet, 3 Refills, Maintenance, 03/07/21 9:07:00EDT, Tablet, [facility]/pharmacy #[id number], Partial fill upon patient request, 164, cm, 03/02/21 8:40:00 EDT, Height, 87.5, kg, 02/10/21 9:00:00 EDT, Dry Weight Start Date: 03/07/21 Stop Date: 03/02/22 Status: Ordered lisinopril 10 mg oral tablet 1, tablet, By Mouth, Daily, # 90 tablet, Refills 1, Route to Pharmacy Electronically, [facility], 164, cm, 03/02/21 8:40:00 EDT, Height, [...] weight: 91kg, 08/26/20 16:56:00 EST, sent to [facility].... Start Date: 08/26/20 Status: Ordered shower bars [...] 10:57:00 EDT, Route to Pharmacy Electronically, [facility], Partial fill upon patient request ifthe [...] BHN-BHCP C are Management Bre Skinner, CC [phone](Confirmed) 02/02/19 Active Thrombocytopenia(Confirmed) Active T2DM (type 2 diabetes mellitus)(Confirmed) Active Social History Social History Type Response Smoking Status Never (less than 100 in lifetime) entered on: 06/19/19 Sex
--- OUTSIDE RECORDS SUMMARY | 2023-12-10 00:48 | XMS_ITS | Continuity of Care Document ---
Author Organization [facility] Address [address] [place] [address]- Care Team Providers Care Toe Laster Name Role Phone Claire Trujillo MD Primary Care Physician [phone] [place] [facility] [place]/06[place]20 - 09/05/[address] [id number] Allergies, Adverse Reactions, Alerts Substance Reaction [...] Refills, Maintenance, 08/18/20 16:04:00 EST, Tablet, [facility], 1 tablet By Mouth 2 times a day, 163, cm, 04/21/20 22:04:00 EDT, Height, 91, kg,04/19/20 23:16:00 EDT, Dry Weight Start Date: 08/18/20 Status: Ordered FLUoxetine 20 mg oral capsule 1, capsule, By Mouth, Daily, # 90 capsule, Refills 3, Tot. Refills 3, Maintenance, 11/05/19 18:38:00 EDT, Route to Pharmacy Electronically, [facility], 165, cm, 07/21/19 14:31:00 [...] Maintenance, 08/18/2115:13:00 EST, Route to Pharmacy Electronically, [facility], 163, cm, 04/21/20 22:04:00 EDT, Height, 91, kg, 04/19/20 23:16:00 EDT, Dry Weight Start Date: 08/18/20 Status: Ordered Humalog 100 u/ml subcutaneous injection See Instructions, take before meals (three times a day) per sliding scale 4 units if over 120; 6 at200; 8 at 300; 12 if 400 max 60 units/ day, # 6 mL, 2 Refills, Maintenance, 07/19/20 13:40:00 EST, [facility], d/c [facility];, 163, cm, 04/21/20... Start Date: 07/19/20 Status: Ordered isosorbide mononitrate 30 mg oral tablet, extended release 1 tablet = 30 mg, By Mouth, Daily in AM, # 30 tablet, 11 Refills, Maintenance, 02/23/20 12:51:00 EDT, [facility], 165, cm, 01/12/20 16:41:00 EDT, Height, 91, kg, 06/19/19 16:55:00 EST, Dry Weight Start Date: 02/23/20 Stop Date: 02/17/21 Status: Ordered Lantus Solostar Pen 100 units/mL subcutaneous solution = 15 units, Subcutaneous Injection, Daily at bedtime, # 9 mL, 2 Refills, Maintenance, 05/07/20 13:08:00 EDT, Injection, [facility], 163, cm, 04/21/20 22:04:00 EDT, Height, 91, kg, 04/19/20 23:16:00 EDT, Dry Weight Start Date: 05/07/20 Stop Date: 08/05/20 Status: Ordered Lipitor 80 mg oral tablet 1 tablet = 80 mg, By Mouth, Daily at bedtime, # 90 tablet, 3 Refills, Maintenance, 06/09/20 13:06:00 EST, Tablet, [facility], Partial fill upon patient request, 163, cm, 04/21/20 22:04:00 EDT, Height, 91, kg, 04/19/20 23:16:00 EDT, Dry Weight Start Date: 06/09/20 Stop Date: 06/04/21 Status: Ordered lisinopril 10 mg oral tablet 1, tablet, By Mouth, Daily, # 90 tablet, Refills 3, Tot. Refills 3, Maintenance, 11/05/19 18:37:00 EDT, Route to Pharmacy Electronically, [facility], 165, cm, 07/21/19 14:31:00 EST, Height, [...] weight: 91kg, 08/26/20 16:56:00 EST, sent to [facility]. Start Date: 08/26/20 Status: Ordered shower bars [...] 08/04/20 14:13:00 EST, Route to Pharmacy Electronically, [facility], 163, cm, 04/21/20 22:04:00 EDT, Height, [...] BHN-BHCP C are Management Bre Skinner, CC [phone](Confirmed) 02/02/19 Active Thrombocytopenia(Confirmed) Active Type 1 diabetes mellitus(Confirmed) Active Social History Social History Type Response Smoking Status Never (less than 100 in lifetime) entered on: 06/19/19 Sex
--- OUTSIDE RECORDS SUMMARY | 2023-12-10 00:48 | XMS_ITS | Continuity of Care Document ---
Author Organization [facility] Address [address] [place] [address]- Care Team Providers Care Coat Fitter Name Role Phone Claire Trujillo MD Primary Care Physician [phone] Encounter [facility] Date(s): 09/26/23 - 10/26/[address] [address]- Allergies, Adverse Reactions, Alerts Substance Reaction Severity Status metFORMIN 1 GI symptoms Active 1GI intolreance Immunizations Given and Recorded Vaccine Date Status Refusal Reason zoster vaccine, inactivated 1 09/21/23 Recorded tetanus/diphtheria/pertussis, acel(Tdap) 2 09/21/23 Recorded tetanus/diphtheria/pertussis, acel(Tdap) 01/11/17 Given pneumococcal 20-valent conjugate vaccine 3 09/21/23 Recorded SARS-CoV-2 mRNA (aznvqbn-dpkq-qkpkn) vax 03/03/22 Given SARS-CoV-2 mRNA (eqvjbpd-timp-kxlmx) vax 08/27/21 Given SARS-CoV-2 (COVID-19) mRNA BNT-162b2 [...] 0 Refills, Maintenance, 11/27/22 11:10:00 EDT, Lotion, [facility], Partial fill upon patient request if the prescri... Start Date: 11/27/22 Status: Ordered Ankle foot orthostis Ankle foot orthostis, See Instructions, # 1 each, Refills 0, Tot. Refills 0, Maintenance, E11.40 needed for 99 weeks Fax to [facility], 09/24/23 17:56:00 EDT, Supply Start Date: 09/24/23 Status: Ordered aspirin 81 mg oral delayed release tablet 81 mg, 1, tablet, By Mouth, Daily, blood thinner/ hace la leonard avileza - para proteger el paty/ arterias tapadas en el paty, # 90 tablet, Refills 3, Tot. Refills 3, Maintenance, 09/09/23 9:59:00 EST, Route to Pharmacy [facility], [facility]... Start Date: 09/09/23 Stop Date: 09/03/24 [...] 05/02/23 16:08:00 EDT, Route to Pharmacy Electronically, [facility], Partial fill upon patient request if the pr... Start Date: 05/02/23 Stop Date: 07/01/23 Status: Ordered Flomax 0.4 mg oral capsule 0.8 mg, 2, capsule, By Mouth, Daily, # 180 capsule, Refills 1, Tot. Refills 1, Maintenance, 10/03/23 13:04:00 EDT, [facility] upon [...] E10.42 duration: 99 weeks. Fax to Cheryl ([facility], 05/11/21 11:23:00 EDT, Supply Start Date: 05/11/21 Status: Ordered Home blood pressure monitor Home blood pressure monitor, See Instructions, # 1 each, Refills 0, Tot. Refills 0, Maintenance, ICD 10 I95.1; E11. 43 ALEIDA: [facility] 12:53:00 EST, Supply Start Date: [...] 09/09/23 9:57:00 EST, Route to Pharmacy Electronically, [facility], Partial fill upon patien... Start Date: 09/09/23 Stop Date: 09/03/24 Status: Ordered Jardiance 25 mg oral tablet 1 tablet = 25 mg, By Mouth, Daily in AM, # 90 tablet, 3 Refills, Maintenance, 09/09/23 9:59:00 EST,[facility], Partial fill upon patient request if the [...] 09/27/24 13:03:00 EDT, 10/03/23 13:03:00 EDT, Injection, [facility] increase in dose, 166, cm, 09/24/23 15:24:00... Start Date: 10/03/23 Stop Date: 09/27/24 Status: Ordered Lantus Solostar Pen 100 units/mL subcutaneous solution = 23 units, Subcutaneous Injection, Daily at bedtime, Insulina de 24 horas., # 15 mL, 1 Refills, Maintenance, 04/26/24 16:08:00 EDT, Injection, [facility], No insurance (Medicare not active until 06/15). Please dispense via 340B., 165,... Start Date: 04/26/24 Status: Ordered Lipitor 80 mg oral tablet 1 tablet = 80 mg, By Mouth, Daily at bedtime, para colesterol / proteger el paty/ arterias tapadas en el paty, # 90 tablet, 3 Refills, Maintenance, 09/09/23 9:59:00 EST, [facility] fill upon patient request, [...] 09/09/23 9:57:00 EST, Route to Pharmacy Electronically, [facility] Start Date: 09/09/23 Stop Date: 09/03/24 Status: Ordered morphine 15 mg/8 to 12 hr oral tablet, extended release 1 tablet = 15 mg, By Mouth, Every 12 hours, # 56 tablet, 0 Refills, Maintenance, 10/25/23 21:13:00 EDT, ER Tablet, [facility]/pharmacy #[id number], Partial fill upon patient [...] Acute 11/22/23 21:13:00 EDT, 10/25/23 21:13:00 EDT, [facility]/pharmacy #[id number], Partial fill upon patient request ifthe prescription is for a schedule II opioid drug.... Start Date: 10/25/23 Stop Date: 11/22/23 Status: Ordered powerwheel chair powerwheel chair, See Instructions, # 1 each, Refills 0, Tot. 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 99 weeks fax to [facility], 09/24/23 17:56:00 EDT, Supply Start [...] weight: 93kg, 11/21/21 16:40:00 EDT, sent to [facility]. Start Date: 11/21/21 Status: Ordered [...] Name: Sorin Moser RN Position: [facility] RN Member Role: Primary Care Nurse Name: Ya Wilson RN Position: [facility] RN Member Role: Primary Care Nurse Name: Brandi Wei RN Position: [facility] RN Member Role: Primary Care Nurse Name: Valentina Leiva RN Position: [facility] SN RN Member Role: Primary Care Nurse Name: Macarena Bedolla Position: [facility] Outreach Member Role: Lifetime Consulting Physician Name: Abigail Yang RN Position: [facility] Onco RN Member Role: Primary Care Nurse Name: Claire Trujillo MD Position: [facility] Physician - Primary Care Member Role: PCP Address: Address: [address] [place] [id number]- Name: Heidi Dao Position: [facility] RN Member Role: Primary Care Nurse Care Team Related Persons Name: JOEL BRIZUELA Address: [address] [address]
--- OUTSIDE RECORDS SUMMARY | 2023-12-10 00:48 | XMS_ITS | Continuity of Care Document ---
Author Organization [facility] Address [address] [place] [address]- Care Team Providers Care Side Seam Tender Name Role Phone Claire Trujillo MD Primary Care Physician [place] [facility] Date(s): 05/14/23 - 06/13/[address] [address]- Allergies, Adverse Reactions, Alerts Substance Reaction Severity Status metFORMIN 1 GI symptoms Active 1GI intolreance Immunizations Given and Recorded Vaccine Date Status Refusal Reason SARS-CoV-2 mRNA (jmzedxb-ycor-sgrgt) vax 03/03/22 Given SARS-CoV-2 mRNA (zpuchrh-ienr-stozu) vax 08/27/21 Given SARS-CoV-2 (COVID-19) mRNA BNT-162b2 [...] 0 Refills, Maintenance, 11/27/22 11:10:00 EDT, [facility], [facility] fill upon patient request if the prescri... Start Date: 11/27/22 Status: Ordered aspirin 81 mg oral delayed release tablet 81 mg, 1, tablet, By Mouth, Daily, blood thinner/ hace la leonard mas cullen - para proteger el paty/ arterias tapadas en el paty, # 90 tablet, Refills 3, Tot. Refills 3, Maintenance, 05/02/23 16:07:00 EDT, Route to Pharmacy Electronically, [facility]... Start Date: 05/02/23 Stop Date: 04/26/24 Status: [...] 05/02/23 16:08:00 EDT, Route to Pharmacy Electronically, [facility], Partial fill upon patient request if the pr... Start Date: 05/02/23 Stop Date: 07/01/23 Status: Ordered Flomax 0.4 mg oral capsule 0.8 mg, 2, capsule, By Mouth, Daily, # 180 capsule, Refills 1, Tot. Refills 1, Maintenance, 05/02/23 16:07:00 EDT, Route to Pharmacy Electronically, [facility], Partial fill upon patient request [...] E10.42 duration: 99 weeks. Fax to Cheryl ([facility]), 05/11/21 11:23:00 EDT, Supply Start Date: 05/11/21 Status: Ordered Home blood pressure monitor Home blood pressure monitor, See Instructions, # 1 each, Refills 0, Tot. Refills 0, Maintenance, ICD 10 I95.1; E11. 43 ALEIDA: 99 [facility]22 12:53:00 EST, Supply Start Date: 05/25/22 Status: Ordered HumaLOG KwikPen 100 units/mL injectable solution See Instructions, Mealtime insulin; dose according to finger stick before meals FS 100-199: 5 unitsFS: 200-249: 6 units FS 250-299: 7 units FS above 300: 8 units, # 15 mL, 1 Refills, 05/15/23 10:16:00 EDT, [facility], No insur... Start Date: 05/15/23 Status: Ordered isosorbide mononitrate 30 mg oral tablet, extended release 30 mg, 1, tablet, By Mouth, Daily at bedtime, Para el paty. Noelle antes de acostarse., # 30 tablet, Refills 3, Tot. Refills 3, Maintenance, 05/02/23 16:07:00 EDT, Route to Pharmacy Electronically, [facility], Partial fill upon telma... Start Date: 05/02/23 Stop Date: 08/30/23 Status: Ordered Jardiance 25 mg oral tablet 1 tablet = 25 mg, By Mouth, Daily in AM, # 30 tablet, 5 Refills, Maintenance, 05/02/23 16:09:00 EDT, [facility], Partial fill upon patient request [...] 1 Refills, Maintenance, 04/26/24 16:08:00 EDT, [facility]jection, [facility], No insurance (Medicare not active [...] 06/04/23 13:45:00 EST, Route to Pharmacy Electronically, [facility]/pharmacy #[id number], Partial fill upon patient request... [...] 16:40:00 EDT, sent to [facility]. Start Date: 11/21/21 Status: Ordered [...] Name: Sorin Moser RN Position: [facility] RN Member Role: Primary Care Nurse Name: Ya Wilson RN Position: [facility] RN Member Role: Primary Care Nurse Name: Brandi Wei RN Position: [facility] RN Member Role: Primary Care Nurse Name: Valentina Leiva RN Position: [facility] SN RN Member Role: Primary Care Nurse Name: Macarena Bedolla Position: [facility] Outreach Member Role: Lifetime Consulting Physician Name: Abigail Nuno RN Position: [facility] Onco RN Member Role: Primary Care Nurse Name: Claire Trujillo MD Position: [facility] Physician - Primary Care Member Role: PCP Address: Address: [address] [place] [id number] Name: Heidi Dao Position: [facility] RN Member Role: Primary Care Nurse Care Team Related Persons Name: GELACIO JOEL Address: home [address] [place], [place] [address]
--- OUTSIDE RECORDS SUMMARY | 2023-12-10 00:48 | XMS_ITS | Continuity of Care Document ---
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 Fax to Cheryl [facility], 10/28/20 14:47:00 EDT, Supply Start Date: 10/28/20 Status: Ordered empagliflozin 10 mg oral tablet 1 tablet = 10 mg, By Mouth, Daily in AM, # 30 tablet, 2 Refills, Maintenance, 03/10/21 11:43:00 EDT, Tablet, [facility], Partial fill upon patient request if [...] PLUS 1 MORE TIME NEEDED FOR SYMPTOMS, [facility] Start Date: 04/21/19 Status: Ordered FREESTYLE LANCETS 100CT See Instructions, # 100 each, Refills 11 Tot. Refills 11, USE DIRECTED FOR TYPE 1 DIABETES, KEVIN,[facility] Start Date: 03/18/19 Status: Ordered Freestyle [...] 01/06/21 12:38:00 EDT, Route to Pharmacy Electronically, [facility], 163, cm, 01/03/21 10:40:00 EDT, Height, 91, kg, 04/19/20 23:16:00 EDT, Dry Weight Start Date: 01/06/21 Status: Ordered Hand Held Shower Head Hand Held Shower Head, See Instructions, # 1 each, Refills 0, Tot. Refills 0, Maintenance, diagnosis: diabetic neuropathy, T1DM. ICD10: E10.42 duration: 99 weeks. Fax to Cheryl ([facility]), 10/28/20 14:53:00 EDT, Supply Start Date: 10/28/20 Status: Ordered isosorbide mononitrate 60 mg oral tablet, extended release 60 mg, 1, tablet, By Mouth, Daily in AM, # 90 tablet, Refills 3, Tot. Refills 3, Maintenance, 01/03/21 10:57:00 EDT, Route to Pharmacy Electronically, [facility], Partial fill upon patient request if the prescription is for a schedule II opioid drWillis.. Start Date: 01/03/21 Status: Ordered Lantus Solostar Pen 100 units/mL subcutaneous solution = 15 units, Subcutaneous Injection, Daily at bedtime, # 9 mL, 2 Refills, Maintenance, 05/07/20 13:08:00 EDT, Injection, [facility], 163, cm, 04/21/20 22:04:00 EDT, Height, 91, kg, 04/19/20 23:16:00 EDT, Dry Weight Start Date: 05/07/20 Stop Date: 08/05/20 Status: Ordered Lipitor 80 mg oral tablet 1 tablet = 80 mg, By Mouth, Daily at bedtime, # 90 tablet, 3 Refills, Maintenance, 03/07/21 9:07:00EDT, Tablet, [facility]/pharmacy #[id number], Partial fill upon patient request, 164, cm, 03/02/21 8:40:00 EDT, Height, 87.5, kg, 02/10/21 9:00:00 EDT, Dry Weight Start Date: 03/07/21 Stop Date: 03/02/22 Status: Ordered lisinopril 10 mg oral tablet 1, tablet, By Mouth, Daily, # 90 tablet, Refills 1, Route to Pharmacy Electronically, [facility], 164, cm, 03/02/21 8:40:00 EDT, Height, [...] 08/26/20 16:56:00 EST, sent to [facility].[employer] Start Date: 08/26/20 Status: Ordered shower bars [...] 01/03/21 10:57:00 EDT, Route to Pharmacy Electronically, [facility], Partial fill upon patient request ifthe [...] N-BHCP C are Management Bre Skinner, CC [phone](Confirmed) 02/02/19 Active Thrombocytopenia(Confirmed) Active T2DM (type 2 diabetes mellitus)(Confirmed) Active Social History Social History Type Response Smoking Status Never (less than 100 in lifetime) entered on: 06/19/19 Sex
--- OUTSIDE RECORDS SUMMARY | 2023-12-10 00:48 | XMS_ITS | Continuity of Care Document ---
Author Organization [facility] ter Address [address] [place] [address]- Care Team Providers Care Rn Maternal Child Name Role Phone Claire Trujillo MD Primary Care Physician [phone] Encounter [facility] Date(s): 04/07/22 - 04/21/[address] [address]- Encounter Diagnosis Viral syndrome(Final) - 04/07/22 COVID(Final) - 04/07/22 Falls(Final) - 04/07/22 Discharge Disposition: A-Transfer SNF Attending Physician: Yadiel Ho MD Admitting Physician: Brennan Kearney MD Referring Physician: Not on Staff, Referring MD Allergies, Adverse Reactions, Alerts Substance Reaction Severity Status metFORMIN 1 GI symptoms Active 1GI intolreance Immunizations Given and Recorded Vaccine Date Status Refusal Reason SARS-CoV-2 mRNA (laopxzj-paiu-ynzvm) vax 03/03/22 Given SARS-CoV-2 mRNA (rseyvxg-tczd-sbsel) vax 08/27/21 Given SARS-CoV-2 (COVID-19) mRNA BNT-162b2 [...] Refuses 1Early/Late Reason: Med Not Available Medications Acetaminophen Tablet 650 mg, Tablet, By Mouth, Every 4 hours, PRN for Pain , Mild, Temperature Greater than 100.5, Routine, 04/08/22 0:10:00 EDT Start Date: 04/08/22 Stop Date: 04/21/22 Status: Discontinued Alcohol Pads See Instructions, # 100 each, [...] Dry Weight Start Date: 10/03/20 Status: Ordered aspirin 81 mg oral delayed release tablet 81 mg, 1, tablet, By Mouth, Daily, # 30 tablet, Refills 0, Maintenance, 04/09/22 10:33:00 EDT, Partial fill upon patient request if the prescription is for a schedule II opioid drug. Start Date: 04/09/22 Status: Ordered bed liners bed liners, See [...] 60 tablet, 5 Refills, 02/15/22 18:16:00 EDT, [facility] 30, 1 tablet By Mouth 2 times a day, 164, cm, 11/21/21 14:03:00 EDT, Height, 87.5, kg, 02/10/21 9:00:00 EDT, Dry Weight Start Date: 02/15/22 Status: Ordered Diabetic Shoes with Inserts Diabetic Shoes with Inserts, See Instructions, # 2 each, Refills 0, Tot. Refills 0, Maintenance, Wear for diabetic foot care. Diagnosis: Type II DM, ICD10 E11.65. Fax to [facility], 10/28/20 14:47:00 EDT, Supply Start Date: 10/28/20 Status: Ordered disinfectant wipes disinfectant wipes, See Instructions, # 100 each, Refills 11, Tot. Refills 11, Maintenance, dx: incontinence, T1DM ICD10: N31.9 duration: 99, 03/13/22 12:20:00 EDT, Supply Start Date: 03/13/22 Status: Ordered FREESTYLE SHELLIE LITE See Instructions, [...] E10.42 duration: 99 weeks. Fax to Cheryl ([facility]), 05/11/21 11:23:00 EDT, Supply Start Date: [...] 15 mL, 11 Refills, 03/03/22 15:23:00 EDT, [facility]... Start Date: 03/03/22 Status: Ordered isosorbide mononitrate 30 mg oral tablet, extended release 30 mg, 1, tablet, By Mouth, Daily at bedtime, Refills 0, Maintenance, 04/20/22 16:40:00 EDT, Partial fill upon patient request if the prescription is for a schedule II opioid drug. Start Date: 04/20/22 Status: Ordered Jardiance 10 mg oral tablet 1 tablet, By Mouth, Daily in AM, # 30 tablet, 5 Refills, [facility], 164, cm, 11/21/21 14:03:00 EDT, Height, 87.5, kg, 02/10/21 9:00:00 EDT, Dry Weight Start Date: 02/16/22 Status: Ordered Lantus Solostar Pen 100 units/mL subcutaneous solution = 8 units, Subcutaneous Injection, Daily at bedtime, # 15 mL, 2 Refills, Maintenance, 05/07/20 13:08:00 EDT, Injection, [facility], 163, cm, 04/21/20 22:04:00 EDT, Height, 91, kg, 04/19/20 23:16:00 EDT, Dry Weight Start Date: 05/07/20 Stop Date: 08/05/20 Status: Ordered Lipitor 80 mg oral tablet 1 tablet = 80 mg, By Mouth, Daily at bedtime, # 90 tablet, 3 Refills, Maintenance, 03/03/22 15:27:00 EDT, Tablet, [facility] patient request, 164, cm, 03/03/22 14:46:00 EDT, Height, 87.5, kg, 02/10/21 9:00:00 EDT, . Start Date: 03/03/22 Stop Date: 02/26/23 Status: Ordered lisinopril 5 mg oral tablet 5 mg, Tablet, By Mouth, 04/21/22 9:00:00 EDT Start Date: 04/21/22 Stop Date: 04/21/22 Status: Completed lisinopril 5 mg oral tablet 5 mg, 1, tablet, By Mouth, Daily, Refills 0, Maintenance, 04/20/22 16:41:00 EDT, Partial fill upon patient request if the prescription is for a schedule II opioid drug. Start Date: 04/20/22 Status: Ordered LORazepam 0.5 mg oral tablet [...] EDT, Supply Start Date: 03/13/22 Status: Ordered metoprolol 50 mg oral tablet, extended release 50 mg, XL Tablet, By Mouth, 04/21/22 9:00:00 EDT Start Date: 04/21/22 Stop Date: 04/21/22 Status: Completed metoprolol 50 mg oral tablet, extended release 50 mg, 1, tablet, By Mouth, Daily, Refills 0, Maintenance, 04/20/22 16:40:00 EDT, Partial fill uponpatient request if the prescription is for a schedule II opioid drug. Start Date: 04/20/22 Status: Ordered midodrine 5 mg oral tablet 5 mg, Tablet, By Mouth, 04/21/22 9:00:00 EDT Start Date: 04/21/22 Stop Date: 04/21/22 Status: Completed midodrine 5 mg oral tablet 5 mg, 1, tablet, By Mouth, 3 times a day, Refills 0, Maintenance, 04/20/22 16:40:00 EDT, Partial fill upon patient request if the prescription is for a schedule II opioid drug. Start Date: 04/20/22 Status: Ordered rollator walker w/ 4 wheels, seat and brakes rollator walker w/ 4 wheels, seat and brakes, See Instructions, # 1 each, Refills 0, Tot. Refills 0, Maintenance, dx: diabetes with neuropathy ICD10: E11.40 duration: 99 weeks height: 163 cm weight: 91kg, 08/26/20 16:56:00 EST, sent to [facility]. Start Date: 08/26/20 Status: Ordered rollator walker w/ 4 wheels, seat and brakes rollator walker w/ 4 wheels, seat and brakes, See Instructions, # 1 each, Refills 0, Tot. Refills 0, Maintenance, dx: diabetes with neuropathy ICD10: E11.40 duration: 99 weeks height: 164cm weight: 93kg, 11/21/21 16:40:00 EDT, sent to [facility]. Start Date: 11/21/21 Status: Ordered shower [...] EST, Supply Start Date: 06/03/20 Status: Ordered traZODone 50 mg oral tablet 1, tablet, By Mouth, Daily at bedtime, PRN, # 30 tablet, Refills 5, Tot. Refills 5, Maintenance, ASNEEDED FOR SLEEP, 11/14/21 12:34:00 EDT, Route to Pharmacy Electronically, [facility] 164, cm, 03/02/21 8:40:00 EDT, Height, [...] Effective Dates Status H ealth Status Informant CAD (coronary artery disease) Confirmed Active Diabetic peripheral neuropathy Confirmed Active Diabetic nephropathy Confirmed Active Dysphagia Confirmed Active Hallucinations Confirmed Active Hypertension Confirmed Active Ischemic cardiomyopathy EF 30-35% on Echo 12/2018 Confirmed Active Anxiety and depression Confirmed Active Obese class I Confirmed Active Care coordination [facility] Care Management Bre Skinner, CC [phone] Confirmed 02/02/19 Active Thrombocytopenia Confirmed Active TIA (transient ischemic attack) Confirmed Active T2DM (type 2 diabetes mellitus) Confirmed Active Vital Signs Most recent to oldest [Reference Range]: 1 2 3 Weight 82.0 kg (04/08/22 4:23 AM) Oxygen Saturation [94-100 %] 96 % (04/21/22 7:00 AM) 98 % (04/21/22 2:57 AM) 98 % (04/20/22 11:30 PM) Pulse Rate [55-90 bpm] 54 bpm *L* (04/21/22 7:46 AM) 54 bpm *L* (04/21/22 7:45 AM) 54 bpm *L* (04/21/22 7:00 AM) Blood Pressure [90-138/55-84 mm Hg] 91/53mm Hg (04/21/22 7:46 AM) 91/53mm Hg (04/21/22 7:46 AM) 91/53mm Hg (04/21/22 7:45 AM) Respiratory Rate [16-30 br/min] 18 br/min (04/21/22 7:00 AM) 18 br/min (04/21/22 2:57 AM) 20 br/min (04/21/22 2:44 AM) Temperature [96.8-100.4 DegF] 98.4 DegF (04/21/22 7:00 AM) 97.1 DegF (04/21/22 2:57 AM) 97.6 DegF (04/20/22 11:30 PM) Liters per Minute 0 L/min (04/16/22 4:18 PM) 0 L/min (04/16/22 8:52 AM) 0 L/min (04/15/22 4:12 PM) Mode of Delivery (Oxygen) Room air (04/21/22 7:00 AM) Room air (04/20/22 3:17 PM) Room air (04/20/22 2:29 PM) Blood pressure sites Arm, right (04/21/22 7:00 AM) Arm, left (04/21/22 2:57 AM) Arm, left (04/20/22 11:30 PM) Temperature Route Oral (04/21/22 7:00 AM) Temporal (04/21/22 2:57 AM) Temporal (04/20/22 11:30 PM) Weight Obtained Via Bed scale (04/08/22 4:23 AM) Social History Social History Type Response Smoking Status Never (less than 100 in lifetime) entered on: 06/19/19 Sex Patient Care team information Personnel Name: Claire Trujillo MD Address: Address: [address] [place], [place] [address] [[email or web address]]
--- OUTSIDE RECORDS SUMMARY | 2023-12-10 00:48 | XMS_ITS | Continuity of Care Document ---
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 Name Role Phone Claire Trujillo MD Primary Care Physician [phone] Encounter [facility] [place] Date(s): 02/12/23 - 03/14/[address] [address]- Allergies, Adverse Reactions, Alerts Substance Reaction Severity Status metFORMIN 1 GI symptoms Active 1GI intolreance Immunizations Given and Recorded Vaccine Date Status Refusal Reason SARS-CoV-2 mRNA (bzrpkqe-rjww-tvssk) vax 03/03/22 Given SARS-CoV-2 mRNA (rfxqrjq-yvzo-vtxci) vax 08/27/21 Given SARS-CoV-2 (COVID-19) mRNA BNT-162b2 [...] 0 Refills, Maintenance, 11/27/22 11:10:00 EDT, [facility] [...] Moderate, Apply to legs for diabetic neuropathy. Polish sig, # 60 Gm, 1 Refills, Maintenance, 06/06/22 9:44:00 EST, Cream, [facility], Partial fill upon patient request if the [...] 01/04/23 15:22:00 EDT, Route to Pharmacy Electronically, [facility], Partial fill upon patient request if the pre... Start Date: 01/04/23 Stop Date: 03/05/23 Status: Ordered Flomax 0.4 mg oral capsule 0.8 mg, 2, capsule, By Mouth, Daily, # 180 capsule, Refills 0, Tot. Refills 0, Maintenance, 10/16/22 13:34:00 EDT, Route to Pharmacy Electronically, [facility], Partial fill upon patient request if the [...] 43 ALEIDA: 99 Bring rx to [facility], 05/25/22 12:53:00 EST, Supply Start Date: 05/25/22 Status: Ordered HumaLOG KwikPen 100 units/mL injectable solution See Instructions, Mealtime insulin; dose according to finger stick before meals FS 100-199: 5 unitsFS: 200-249: 6 units FS 250-299: 7 units FS above 300: 8 units, # 15 mL, 11 Refills, 06/01/22 10:46:00 EST, [facility]., 165, cm... Start Date: 06/01/22 Status: Ordered Jardiance 25 mg oral tablet 1 tablet = 25 mg, By Mouth, Daily in AM, # 30 tablet, 5 Refills, Maintenance, 11/08/22 15:44:00 EDT, [facility]., Partial fill upon patient request if the prescription is for a schedule II opioid drug., 165, cm, 09/04/22 13:02:00 EST, H... Start Date: 11/08/22 Stop Date: 05/07/23 Status: Ordered Lantus Solostar Pen 100 units/mL subcutaneous solution = 23 units, Subcutaneous Injection, Daily at bedtime, Insulina de 24 horas., # 15 mL, 11 Refills, Maintenance, 01/02/23 13:26:00 EDT, Injection, [facility]., increase in dose, 165, cm,01/02/23 13:02:00 EDT, Height, 84.2, kg, 05/21/22 0... Start Date: 01/02/23 Stop Date: 12/28/23 Status: Ordered Lipitor 80 mg oral tablet 1 tablet = 80 mg, By Mouth, Daily at bedtime, para colesterol / proteger el paty/ arterias tapadas en el paty, # 30 tablet, 11 Refills, Maintenance, 05/04/22 10:23:00 EDT, Tablet, [facility], Partial fill upon patient request, 16... Start [...] 05/04/22 10:27:00 EDT, Route to Pharmacy Electronically, [facility]... Start Date: 05/04/22 Status: Ordered [...] 03/09/23 8:32:00 EDT, Route to Pharmacy Electronically, [facility], Partial fill upon patient re... Start Date: [...] Consulting Physician Name: Abigail Nuno RN Position: [facility] Onco RN Member Role: Primary Care Nurse Name: Claire Trujillo MD Position: [facility] Physician - Primary Care Member Role: PCP Address: Address: [address] [place] [address]- Name: Heidi Dao Position: [facility] RN Member Role: Primary Care Nurse Care Team Related Persons Name: JOEL BRIZUELA Address: [place] [address] [place] [id number]
--- OUTSIDE RECORDS SUMMARY | 2023-12-10 00:48 | XMS_ITS | Continuity of Care Document ---
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 Role Phone Claire Trujillo MD Primary Care Physician [place] [facility] [place] 03/08/23 - 04/07/[address] [address]- Allergies, Adverse Reactions, Alerts Substance Reaction Severity Status metFORMIN 1 GI symptoms Active 1GI intolreance Immunizations Given and Recorded Vaccine Date Status Refusal Reason SARS-CoV-2 mRNA (nwuzfsu-hijp-dagvx) vax 03/03/22 Given SARS-CoV-2 mRNA (pjrujab-aelk-ssygi) vax 08/27/21 Given SARS-CoV-2 (COVID-19) mRNA BNT-162b2 [...] 0 Refills, Maintenance, 11/27/22 11:10:00 EDT, [facility] upon patient request if the prescri... Start Date: 11/27/22 Status: Ordered aspirin 81 mg oral delayed release tablet 81 mg, 1, tablet, By Mouth, Daily, blood thinner/ hace la leonard mas cullen - para proteger el paty/ arterias tapadas en el paty, # 90 tablet, Refills 3, Tot. Refills 3, Maintenance, 03/31/23 11:15:00 EDT, Route to Pharmacy Electronically, [facility]... Start Date: 03/31/23 Stop Date: 03/25/24 Status: [...] 1 Refills, Maintenance, 06/06/22 9:44:00 EST, Cream, [facility], Partial fill upon [...] 01/04/23 15:22:00 EDT, Route to Pharmacy Electronically, [facility], Partial fill upon patient request if the pre... Start Date: 01/04/23 Stop Date: 03/05/23 Status: Ordered Flomax 0.4 mg oral capsule 0.8 mg, 2, capsule, By Mouth, Daily, # 180 capsule, Refills 1, Tot. Refills 1, Maintenance, 03/31/23 11:17:00 EDT, [facility] to Pharmacy Electronically, [facility] [...] duration: [facility] weeks. [facility] to [facility], 05/11/21 11:23:00 EDT, Supply Start Date: 05/11/21 Status: Ordered Home blood pressure monitor Home blood pressure monitor, See Instructions, # 1 each, Refills 0, Tot. Refills 0, Maintenance, ICD 10 I95.1; E11. 43 ALEIDA: 99 [facility], 05/25/22 12:53:00 EST, Supply Start Date: [...] 03/31/23 11:17:00 EDT, Route to Pharmacy Electronically, [facility], Partial fill upon patie... Start Date: 03/31/23 Stop Date: 07/29/23 Status: Ordered Jardiance 25 mg oral tablet 1 tablet = 25 mg, By Mouth, Daily in AM, # 30 tablet, 5 Refills, Maintenance, 11/08/22 15:44:00 EDT, [facility], Partial fill upon patient request if the prescription is for a schedule II opioid drug., 165, cm, 09/04/22 13:02:00 EST, H... Start Date: 11/08/22 Stop Date: 05/07/23 Status: Ordered Lantus Solostar Pen 100 units/mL subcutaneous solution = 23 units, Subcutaneous Injection, Daily at bedtime, Insulina de 24 horas., # 15 mL, 11 Refills, Maintenance, 01/02/23 13:26:00 EDT, Injection, [facility], increase in dose, 165, cm,01/02/23 13:02:00 EDT, Height, 84.2, kg, 05/21/22 0... Start Date: 01/02/23 Stop Date: 12/28/23 Status: Ordered Lipitor 80 mg oral tablet 1 tablet = 80 mg, By Mouth, Daily at bedtime, para colesterol / proteger el paty/ arterias tapadas en el paty, # 90 tablet, 3 Refills, Maintenance, 03/31/23 11:15:00 EDT, Tablet, [facility], Partial fill upon patient request, 165... Start [...] 03/31/23 11:15:00 EDT, Route to Pharmacy Electronically, [facility]... Start Date: 03/31/23 Stop Date: [...] Care Nurse Name: Ya Collier RN Position: [facility] RN Member Role: Primary Care Nurse Name: Valentina Leiva RN Position: [facility] SN RN Member Role: Primary Care Nurse Name: Macarena Bedolla Position: [facility] Outreach Member Role: Lifetime Consulting Physician Name: Abigail Nuno RN Position: [facility] Onco RN Member Role: Primary Care Nurse Name: Claire Trujillo MD Position: [facility] Physician - Primary Care Member Role: PCP Address: Address: [address] [place] [id number] Name: eHidi Dao Position: [facility] RN Member Role: Primary Care Nurse Care Team Related Persons Name: JOEL BRIZUELA Address: home [address] [place] [id number]
--- OUTSIDE RECORDS SUMMARY | 2023-12-10 00:48 | XMS_ITS | Continuity of Care Document ---
Author Organization [facility] Address [address] [place] [address]- Care Team Providers Care Pharmacology Associate Name Role Phone Claire Trujillo MD Primary Care Physician Encounter [facility] [place] Date(s): 03/20/23 - 04/19/[address] [address]- Allergies, Adverse Reactions, Alerts Substance Reaction Severity Status metFORMIN 1 GI symptoms Active 1GI intolreance Immunizations Given and Recorded Vaccine Date Status Refusal Reason SARS-CoV-2 mRNA (irexzne-kevm-kglcg) vax 03/03/22 Given SARS-CoV-2 mRNA (bbdkstb-doll-sywpg) vax 08/27/21 Given SARS-CoV-2 (COVID-19) mRNA BNT-162b2 [...] 0 Refills, Maintenance, 11/27/22 11:10:00 EDT, [facility]otion, [facility], Partial fill upon patient request if the prescri... Start Date: 11/27/22 Status: Ordered aspirin 81 mg oral delayed release tablet 81 mg, 1, tablet, By Mouth, Daily, blood thinner/ hace la leonard mas cullen - para proteger el paty/ arterias tapadas en el paty, # 90 tablet, Refills 3, Tot. Refills 3, Maintenance, 03/31/23 11:15:00 EDT, Route to Pharmacy Electronically, [facility]... Start Date: 03/31/23 Stop Date: 03/25/24 Status: [...] 1 Refills, Maintenance, 06/06/22 9:44:00 EST, Cream, [facility], Partial fill upon patient request [...] 01/04/23 15:22:00 EDT, Route to Pharmacy Electronically, [facility], Partial fill upon patient request if the pre... Start Date: 01/04/23 Stop Date: 03/05/23 Status: Ordered Flomax 0.4 mg oral capsule 0.8 mg, 2, capsule, By Mouth, Daily, # 180 capsule, Refills 1, Tot. Refills 1, Maintenance, 03/31/23 11:17:00 EDT, Route to Pharmacy Electronically, [facility], Partial fill upon patient request [...] E10.42 duration: 99 weeks. Fax to Cheryl ([facility]), 05/11/21 11:23:00 EDT, Supply Start Date: 05/11/21 Status: Ordered Home blood pressure monitor Home blood pressure monitor, See Instructions, # 1 each, Refills 0, Tot. Refills 0, Maintenance, ICD 10 I95.1; E11. 43 ALEIDA: 99 [facility] 05/25/22 12:53:00 EST, Supply Start Date: 05/25/22 Status: Ordered HumaLOG KwikPen 100 units/mL injectable solution See Instructions, Mealtime insulin; dose according to finger stick before meals FS 100-199: 5 unitsFS: 200-249: 6 units FS 250-299: 7 units FS above 300: 8 units, # 15 mL, 11 Refills, 06/01/22 10:46:00 EST, [facility] 165, cm... Start Date: 06/01/22 Status: Ordered isosorbide mononitrate 30 mg oral tablet, extended release 30 mg, 1, tablet, By Mouth, Daily at bedtime, Para el paty. Noelle antes de acostarse., # 30 tablet, Refills 3, Tot. Refills 3, Maintenance, 03/31/23 11:17:00 EDT, Route to Pharmacy Electronically, [facility], Partial fill upon patie... Start Date: 03/31/23 Stop Date: 07/29/23 Status: Ordered Jardiance 25 mg oral tablet 1 tablet = 25 mg, By Mouth, Daily in AM, # 30 tablet, 5 Refills, Maintenance, 11/08/22 15:44:00 EDT, [facility], Partial fill upon patient request if the prescription is for a schedule II opioid drug., 165, cm, 09/04/22 13:02:00 EST, H... Start Date: 11/08/22 Stop Date: 05/07/23 Status: Ordered Lantus Solostar Pen 100 units/mL subcutaneous solution = 23 units, Subcutaneous Injection, Daily at bedtime, Insulina de 24 horas., # 15 mL, 11 Refills, Maintenance, 01/02/23 13:26:00 EDT, Injection, [facility], increase in dose, 165, cm,01/02/23 13:02:00 EDT, Height, 84.2, kg, 05/21/22 0... Start Date: 01/02/23 Stop Date: 12/28/23 Status: Ordered Lipitor 80 mg oral tablet 1 tablet = 80 mg, By Mouth, Daily at bedtime, para colesterol / proteger el paty/ arterias tapadas en el paty, # 90 tablet, 3 Refills, Maintenance, 03/31/23 11:15:00 EDT, Tablet, [facility], Partial fill upon patient request, 165... [...] 03/31/23 11:15:00 EDT, Route to Pharmacy Electronically, [facility]... Start Date: 03/31/23 Stop Date: 03/25/24 Status: [...] 04/16/23 9:23:00 EDT, Route to Pharmacy Electronically, [facility]., Partial fill upon patient request if the prescription is for a schedul... Start Date: 04/16/23 Stop Date: 04/23/23 Status: Ordered oxyCODONE 5 mg oral tablet 5 mg, 1, tablet, By Mouth, Every 6 hours, PRN, for 28 days, # 112 tablet, Refills 0, Tot. Refills 0, Acute 05/07/23 12:49:00 EDT, for pain, 04/09/23 12:49:00 EDT, Route to Pharmacy Electronically, [facility]., Partial fill upon patient... Start Date: 04/09/23 [...] 93kg, 11/21/21 16:40:00 EDT, sent to [facility] Start Date: 11/21/21 Status: Ordered shower bars [...] Team Personnel Name: Sorin Moser RN Position: [facility] RN Member Role: Primary Care Nurse Name: Brandi Wei RN Position: [facility] RN Member Role: Primary Care Nurse Name: Ya Collier RN Position: [facility] RN Member Role: Primary Care Nurse Name: Valentina Leiva RN Position: [facility] SN RN Member Role: Primary Care Nurse Name: Macarena Bedolla Position: [facility] Outreach Member Role: Lifetime Consulting Physician Name: Abigail Nuno RN Position: [facility] Onco RN Member Role: Primary Care Nurse Name: Claire Trujillo MD Position: [facility] Physician - Primary Care Member Role: PCP Address: Address: [address] [place] [address] Name: Heidi Dao Position: [facility] RN Member Role: Primary Care Nurse Care Team Related Persons Name: JOEL BRIZUELA Address: [address] [place] [id number]
--- OUTSIDE RECORDS SUMMARY | 2023-12-10 00:48 | XMS_ITS | Continuity of Care Document ---
Author Organization [facility] Address [address] [place] [address]- Care Team Providers Care Chemistry Physics Teacher Name Role Phone Claire Trujillo MD Primary Care Physician [phone] Encounter [facility] [place] Date(s): 11/14/22 - 12/14/[address] [address]- Allergies, Adverse Reactions, Alerts Substance Reaction Severity Status metFORMIN 1 GI symptoms Active 1GI intolreance Immunizations Given and Recorded Vaccine Date Status Refusal Reason SARS-CoV-2 mRNA (ttkqijk-lflo-kqmox) vax 03/03/22 Given SARS-CoV-2 mRNA (qpanagj-ekze-apbji) vax 08/27/21 Given SARS-CoV-2 (COVID-19) mRNA BNT-162b2 [...] 0 Refills, Maintenance, 11/27/22 11:10:00 EDT, Lotion, [facility], [facility] fill upon [...] Moderate, Apply to legs for diabetic neuropathy. Iranian sig, # 60 Gm, 1 Refills, Maintenance, [...] 10/16/22 13:34:00 EDT, Route to Pharmacy Electronically, [facility], [...] ICD10: E10.42 duration: 99 weeks. Fax to Cherly ([facility]), 05/11/21 11:23:00 EDT, Supply Start Date: 05/11/21 Status: Ordered Home blood pressure monitor Home blood pressure monitor, See Instructions, # 1 each, Refills 0, Tot. Refills 0, Maintenance, ICD 10 I95.1; E11. 43 ALEIDA: 99 Bring rx to [facility], 05/25/22 12:53:00 EST, Supply Start Date: 05/25/22 Status: Ordered HumaLOG KwikPen 100 units/mL injectable solution See Instructions, Mealtime insulin; dose according to finger stick before meals FS 100-199: 5 unitsFS: 200-249: 6 units FS 250-299: 7 units FS above 300: 8 units, # 15 mL, 11 Refills, 06/01/22 10:46:00 EST, [facility]., 165, cm... Start Date: 06/01/22 Status: Ordered Jardiance 25 mg oral tablet 1 tablet = 25 mg, By Mouth, Daily in AM, # 30 tablet, 5 Refills, Maintenance, 11/08/22 15:44:00 EDT, [facility], Partial fill upon patient request if the prescription is for a schedule II opioid drug., 165, cm, 09/04/22 13:02:00 EST, H... Start Date: 11/08/22 Stop Date: 05/07/23 Status: Ordered Lantus Solostar Pen 100 units/mL subcutaneous solution = 18 units, Subcutaneous Injection, Daily at bedtime, Insulina de 24 horas., # 15 mL, 11 Refills, Maintenance, 09/13/22 12:18:00 EST, Injection, [facility]., 165, cm, 09/04/22 13:02:00EST, Height, [...] 05/04/22 10:27:00 EDT, Route to Pharmacy Electronically, [facility]... Start Date: 05/04/22 Status: [...] weight: 93kg, 11/21/21 16:40:00 [facility] Start Date: 11/21/21 Status: Ordered shower [...] Team Personnel Name: Sorin Moser RN Position: [facility] RN Member Role: Primary Care Nurse Name: Brandi Wei RN Position: [facility] RN Member Role: Primary Care Nurse Name: Ya Collier RN Position: [facility] PCO RN Member Role: Primary Care Nurse Name: Valentina Leiva RN Position: [facility] SN RN Member Role: Primary Care Nurse Name: Macarena Bedolla Position: [facility] Outreach Member Role: Lifetime Consulting Physician Name: Abigail Nuno RN Position: [facility] Onco RN Member Role: Primary Care Nurse Name: Claire Trujillo MD Position: [facility] Physician - Primary Care Member Role: PCP Address: Address: [address] [place] [id number] Name: Heidi Dao Position: [facility] RN Member Role: Primary Care Nurse Care Team Related Persons Name: JOEL BRIZUELA Address: [facility] [address] [place] [id number]
--- OUTSIDE RECORDS SUMMARY | 2023-12-10 00:48 | XMS_ITS | Continuity of Care Document ---
Author Organization [facility] Address [address] [place] [address]- Care Team Providers Care Marine Pipefitter Name Role Phone Claire Trujillo MD Primary Care Physician Encounter [facility] [place] Date(s): 09/04/22 - 10/04/[address] [address]- Allergies, Adverse Reactions, Alerts Substance Reaction Severity Status metFORMIN 1 GI symptoms Active 1GI intolreance Immunizations Given and Recorded Vaccine Date Status Refusal Reason SARS-CoV-2 mRNA (ekxaggc-yoji-gqgpr) vax 03/03/22 Given SARS-CoV-2 mRNA (vrrhikf-axhm-mhmpf) vax 08/27/21 Given SARS-CoV-2 (COVID-19) mRNA BNT-162b2 [...] 05/04/22 10:23:00 EDT, Route to Pharmacy Electronically, [facility]... Start Date: 05/04/22 Status: Ordered bed [...] 1 Refills, Maintenance, 06/06/22 9:44:00 EST, Cream, [facility], Partial fill upon patient request if [...] 09/04/22 13:08:00 EST, Route to Pharmacy Electronically, [facility], Partial fill upon patient request if [...] E10.42 duration: 99 weeks. Fax to Cheryl [facility], 05/11/21 11:23:00 EDT, Supply Start Date: 05/11/21 Status: Ordered Home blood pressure monitor Home blood pressure monitor, See Instructions, # 1 each, Refills 0, Tot. Refills 0, Maintenance, ICD 10 I95.1; E11. 43 ALIEDA: 99 [facility] 12:53:00 EST, Supply Start Date: 05/25/22 Status: Ordered HumaLOG KwikPen 100 units/mL injectable solution See Instructions, Mealtime insulin; dose according to finger stick before meals FS 100-199: 5 unitsFS: 200-249: 6 units FS 250-299: 7 units FS above 300: 8 units, # 15 mL, 11 Refills, 06/01/22 10:46:00 EST, [facility]., 165, cm... Start Date: 06/01/22 Status: Ordered Jardiance 25 mg oral tablet 1 tablet = 25 mg, By Mouth, Daily in AM, # 30 tablet, 5 Refills, Maintenance, 06/01/22 10:45:00 EST, [facility], Partial fill upon patient request if the prescription is for a schedule II opioid drug., 165, cm, 06/01/22 10:18:00 EST, H... Start Date: 06/01/22 Stop Date: 11/28/22 Status: Ordered Lantus Solostar Pen 100 units/mL subcutaneous solution = 18 units, Subcutaneous Injection, Daily at bedtime, Insulina de 24 horas., # 15 mL, 11 Refills, Maintenance, 09/13/22 12:18:00 EST, [facility]jection, [facility] 165, cm, 09/04/22 13:02:00EST, Height, 84.2, kg, 05/21/22 0:51:00 EDT, Dry We... Start Date: 09/13/22 Stop Date: 09/08/23 Status: Ordered Lipitor 80 mg oral tablet 1 tablet = 80 mg, By Mouth, Daily at bedtime, para colesterol / proteger el paty/ arterias tapadas en el paty, # 30 tablet, 11 Refills, Maintenance, 05/04/22 10:23:00 EDT, Tablet, [facility], Partial fill upon patient request, 16... [...] 05/04/22 10:27:00 EDT, Route to Pharmacy Electronically, [facility]... Start Date: 05/04/22 Status: Ordered [...] Type II DM, ICD10 E11.65. Fax to [address] [place] [address]., 09/13/22 12:18:00 EST, Supply Start Date: 09/13/22 [...] coordination N-CP Care Management Bre Skinner, CC [phone] Confirmed 02/02/19 Active Thrombocytopenia Confirmed Active TIA [...] Care Nurse Name: Ya Collier RN Position: [facility] PCO RN Member Role: Primary Care Nurse Name: Valentina Leiva RN Position: [facility] SN RN Member Role: Primary Care Nurse Name: Macarena Bedolla Position: [facility] Outreach Member Role: Lifetime Consulting Physician Name: Abigail Nuno RN Position: [facility] Onco RN Member Role: Primary Care Nurse Name: Claire Trujillo MD Position: [facility] Primary Care Physician Member Role: PCP Address: Address: [address] [place] [id number]- Name: Heidi Dao Position: [facility] RN Member Role: Primary Care Nurse Care Team Related Persons Name: JOEL BRIZUELA Address: home [address] [place] [id number]
--- OUTSIDE RECORDS SUMMARY | 2023-12-10 00:49 | XMS_ITS | Continuity of Care Document ---
Author Organization [facility] Address [address] [place] [address]- Care Team Providers Care Lobbyist Name Role Phone Claire Trujillo MD [id number] Date[facility]s): 02/11/[facility] - 03/17/[address] [address]- Attending Physician: Not on Staff, Attending MD Allergies, Adverse Reactions, Alerts Substance Reaction Severity Status metFORMIN 1 GI symptoms Active 1GI intolreance Immunizations Given and Recorded Vaccine Date Status Refusal Reason SARS-CoV-2 mRNA (varzdep-oryy-nipmm) vax 03/03/22 Given SARS-CoV-2 mRNA (tirelvr-bopl-bizgb) vax 08/27/21 Given SARS-CoV-2 (COVID-19) mRNA BNT-162b2 [...] tablet, 3 Refills, Maintenance, 03/03/22 15:27:00 EDT, [facility], cm, 03/03/22 14:46:00 EDT, Height, [...] 60 tablet, 5 Refills, 02/15/22 18:16:00 EDT, [facility], [facility], 1 tablet By Mouth 2 [...] PLUS 1 MORE TIME NEEDED FOR SYMPTOMS, [facility] Start Date: 04/21/19 Status: Ordered FREESTYLE LANCETS 100CT See Instructions, # 100 each, Refills 11 Tot. Refills 11, USE DIRECTED FOR TYPE 1 DIABETES, [facility] Start Date: 03/18/19 Status: Ordered Freestyle [...] E10.42 duration: 99 weeks. Fax to Cheryl ([facility]), 05/11/21 11:23:00 EDT, Supply Start [...] 15 mL, 11 Refills, 03/03/22 15:23:00 EDT, [facility]... Start Date: 03/03/22 Status: Ordered isosorbide mononitrate 60 mg oral tablet, extended release 60 mg, 1, tablet, By Mouth, Daily in AM, # 30 tablet, Refills 5, Tot. Refills 5, Maintenance, 11/14/21 12:33:00 EDT, [facility] to [facility], [facility], Partial fill upon patient request if the prescription is for a schedule... Start Date: 11/14/21 Status: Ordered Jardiance 10 mg oral tablet 1 tablet, By Mouth, Daily in AM, # 30 tablet, 5 Refills, [facility], 164, cm, 11/21/21 14:03:00 EDT, Height, 87.5, kg, 02/10/21 9:00:00 EDT, Dry Weight Start Date: 02/16/22 Status: Ordered Lantus Solostar Pen 100 units/mL subcutaneous solution = 15 units, Subcutaneous Injection, Daily at bedtime, # 9 mL, 2 Refills, Maintenance, 05/07/20 13:08:00 EDT, Injection, [facility], 163, cm, 04/21/20 22:04:00 EDT, Height, 91, kg, 04/19/20 23:16:00 EDT, Dry Weight Start Date: 05/07/20 Stop Date: 08/05/20 Status: Ordered Lantus Solostar Pen 100 units/mL subcutaneous solution See Instructions, INJECT 15 UNITS SUBCUTANEOUSLY DAILY AT BEDTIME, # 15 mL, 11 Refills, 03/03/22 15:18:00 EDT, [facility], 164, cm, 03/03/22 14:46:00 EDT, Height, 87.5, kg, 02/10/21 9:00:00 EDT, Dry Weight Start Date: 03/03/22 Status: Ordered Lipitor 80 mg oral tablet 1 tablet = 80 mg, By Mouth, Daily at bedtime, # 90 tablet, 3 Refills, Maintenance, 03/03/22 15:27:00 EDT, Tablet, [facility], Partial fill upon patient request, 164, cm, 03/03/22 14:46:00 EDT, Height, 87.5, kg, 02/10/21 9:00:00 EDT, Start Date: 03/03/22 Stop Date: 02/26/23 Status: Ordered lisinopril 10 mg oral tablet 1, tablet, By Mouth, Daily, for 30 days, # 30 tablet, Refills 5, Tot. Refills 5, Physician Stop 09/05/22 11:46:00 EST, 03/09/22 11:46:00 EDT, Route to Pharmacy Electronically, [facility], 164, cm, 03/03/22 14:46:00 EDT, Height, [...] Mouth, Daily, # 90 tablet, 3 Refills, [facility], 164, cm, 03/02/21 8:40:00 EDT,Height, [...] capsule, 3 Refills, Maintenance, 03/03/22 15:29:00EDT, Capsule, [facility], Partial fill upon patient request [...] weight: 91kg, 08/26/20 16:56:00 EST, sent to [facility]. Start Date: 08/26/20 Status: Ordered rollator [...] 08/26/21 13:58:00 EST, Route to Pharmacy Electronically, [facility], Partial fill upon patient request if the prescription is for a schedule II opi... Start Date: 08/26/21 Status: Ordered traZODone 50 mg oral tablet 1, tablet, By Mouth, Daily at bedtime, PRN, # 30 tablet, Refills 5, Tot. Refills 5, Maintenance, ASNEEDED FOR SLEEP, 11/14/21 12:34:00 EDT, Route to Pharmacy Electronically, [facility], 164, cm, 03/02/21 8:40:00 EDT, [...] N-CP C are Management Bre Skinner, CC [phone](Confirmed) 02/02/19 Active Thrombocytopenia(Confirmed) Active TIA (transient ischemic attack)(Confirmed) Active T2DM (type 2 diabetes mellitus)(Confirmed) Active Social History Social History Type Response Smoking Status Never (less than 100 in lifetime) entered on: 06/19/19 Sex Care Team Personnel Name: Claire Trujillo MD Address: [address] [place] [address]
--- OUTSIDE RECORDS SUMMARY | 2023-12-10 00:49 | XMS_ITS | Continuity of Care Document ---
Author Organization [facility] Address [address] [place] [address]- Care Team Providers Care Sander Operator Name Role Phone Claire Trujillo MD Primary Care Physician Encounter [facility] Date(s): 02/03/22 - 03/05/[address] [address]- Allergies, Adverse Reactions, Alerts Substance Reaction Severity Status metFORMIN 1 GI symptoms Active 1GI intolreance Immunizations Given and Recorded Vaccine Date Status Refusal Reason SARS-CoV-2 mRNA (mmhucrw-czwl-dbrmq) vax 03/03/22 Given SARS-CoV-2 mRNA (ueswofi-sumh-flbgi) vax 08/27/21 Given SARS-CoV-2 (COVID-19) mRNA BNT-162b2 [...] tablet, 3 Refills, Maintenance, 03/03/22 15:27:00 EDT, [facility], 164, cm, 03/03/22 14:46:00 EDT, Height, 87.5, [...] 60 tablet, 5 Refills, 02/15/22 18:16:00 EDT, [facility] 30, 1 tablet By [...] 1 MORE TIME NEEDED FOR SYMPTOMS, [facility] Start Date: 04/21/19 Status: Ordered FREESTYLE LANCETS 100CT See Instructions, # 100 each, Refills 11 Tot. Refills 11, USE DIRECTED FOR TYPE [facility] DIABETES, [facility] Start [facility]: 03/18/19 Status: [...] 15 mL, 11 Refills, 03/03/22 15:23:00 EDT, [facility]... Start Date: 03/03/22 Status: Ordered isosorbide mononitrate 60 mg oral tablet, extended release 60 mg, 1, tablet, By Mouth, Daily in AM, # 30 tablet, Refills 5, Tot. Refills 5, Maintenance, 11/14/21 12:33:00 EDT, Route to Pharmacy Electronically, [facility], Partial fill upon patient request if the prescription is for a schedule... Start Date: 11/14/21 Status: Ordered Jardiance 10 mg oral tablet 1 tablet, By Mouth, Daily in AM, # 30 tablet, 5 Refills, [facility], 164, cm, 11/21/21 14:03:00 EDT, Height, 87.5, kg, 02/10/21 9:00:00 EDT, Dry Weight Start Date: 02/16/22 Status: Ordered Lantus Solostar Pen 100 units/mL subcutaneous solution = 15 units, Subcutaneous Injection, Daily at bedtime, # 9 mL, 2 Refills, Maintenance, 05/07/20 13:08:00 EDT, Injection, [facility], 163, cm, 04/21/20 22:04:00 EDT, Height, 91, kg, 04/19/20 23:16:00 EDT, Dry Weight Start Date: 05/07/20 Stop Date: 08/05/20 Status: Ordered Lantus Solostar Pen 100 units/mL subcutaneous solution See Instructions, INJECT 15 UNITS SUBCUTANEOUSLY DAILY AT BEDTIME, # 15 mL, 11 Refills, 03/03/22 15:18:00 EDT, [facility], 164, cm, 03/03/22 14:46:00 EDT, Height, 87.5, kg, 02/10/21 9:00:00 EDT, Dry Weight Start Date: 03/03/22 Status: Ordered Lipitor 80 mg oral tablet 1 tablet = 80 mg, By Mouth, Daily at bedtime, # 90 tablet, 3 Refills, Maintenance, 03/03/22 15:27:00 EDT, Tablet, [facility], Partial fill upon patient request, 164, cm, 03/03/22 14:46:00 EDT, Height, 87.5, kg, 02/10/21 9:00:00 EDT, . Start Date: 03/03/22 Stop Date: 02/26/23 Status: Ordered lisinopril 10 mg oral tablet 1, tablet, By Mouth, Daily, # 30 each, Refills 5, Tot. Refills 5, 10/17/21 10:36:00 EDT, Route to Pharmacy Electronically, [facility], 164, cm, 03/02/21 8:40:00 EDT, [...] Mouth, Daily, # 90 tablet, 3 Refills, [facility], 164, cm, 03/02/21 8:40:00 EDT,Height, 87.5, [...] capsule, 3 Refills, Maintenance, 03/03/22 15:29:00EDT, Capsule, [facility], Partial fill upon patient request [...] weight: 91kg, 08/26/20 16:56:00 EST, sent to [facility]. Start Date: 08/26/20 Status: Ordered rollator walker w/ 4 wheels, seat and brakes rollator walker w/ 4 wheels, seat and brakes, See Instructions, # 1 each, Refills 0, Tot. Refills 0, Maintenance, dx: diabetes with neuropathy ICD10: E11.40 duration: 99 weeks height: 164cm weight: 93kg, 11/21/21 16:40:00 EDT, sent to [facility]. Start Date: 11/21/21 Status: Ordered shower bars [...] 08/26/21 13:58:00 EST, Route to Pharmacy Electronically, [facility], Partial fill upon patient request if the prescription is for a schedule II opi... Start Date: 08/26/21 Status: Ordered traZODone 50 mg oral tablet 1, tablet, By Mouth, Daily at bedtime, PRN, # 30 tablet, Refills 5, Tot. Refills 5, Maintenance, ASNEEDED FOR SLEEP, 11/14/21 12:34:00 EDT, Route to Pharmacy Electronically, [facility], 164, cm, 03/02/21 8:40:00 EDT, [...] N-CP C are Management Bre Skinner, CC [phone](Confirmed) 02/02/19 Active Thrombocytopenia(Confirmed) Active TIA (transient ischemic attack)(Confirmed) Active T2DM (type 2 diabetes mellitus)(Confirmed) Active Social History Social History Type Response Smoking Status Never (less than 100 in lifetime) entered on: 06/19/19 Sex
--- OUTSIDE RECORDS SUMMARY | 2023-12-10 00:49 | XMS_ITS | Continuity of Care Document ---
Author Organization [facility] ter Address [address] [place] [id number] Care Team Providers Care Process Engineer Name Role Phone Claire Trujillo MD Primary Care Physician [phone] [facility] [place](s): 05/20/22 - 05/22/[address] [id number] Encounter Diagnosis Chest pain(Final) - 05/20/22 Discharge Disposition: A-D/C Home Attending Physician: Bunny Whitlock MD Admitting Physician: Urbano Bond MD Referring Physician: Not on Staff, Referring MD Allergies, Adverse Reactions, Alerts Substance Reaction Severity Status metFORMIN 1 GI symptoms Active 1GI intolreance Immunizations Given and Recorded Vaccine Date Status Refusal Reason SARS-CoV-2 mRNA (sknflxf-[id number]) vax 03/03/22 Given SARS-CoV-2 mRNA (ggzxbgf-jytc-jijpv) vax 08/27/21 Given SARS-CoV-2 (COVID-19) mRNA BNT-162b2 [...] EDT, Supply Start Date: 05/04/22 Status: Ordered acetaminophen 325 mg oral tablet 650 mg, By Mouth, Every 4 hours, PRN, Temperature Greater than 100.5, Refills 0, Maintenance, Pain , Mild, 05/22/22 10:31:00 EST, Partial fill upon patient request if the prescription is for a schedule II opioid drug. Start Date: 05/22/22 Status: Ordered Alcohol Pads See Instructions, # [...] EDT, Route to Pharmacy Electronically, [facility]... Start Date: 05/04/22 Status: Ordered bed [...] EDT, Supply Start Date: 03/24/22 Status: Ordered Compression stockings, thigh-high Compression stockings, [...] Type II DM, ICD10 E11.65. Fax to [address] [place] [address], 05/04/22 14:01:00 EDT, Supply Start Date: 05/04/22 [...] duration: 99 weeks. Fax to Cheryl ([facility]), 05/11/21 11:23:00 EDT, Supply Start Date: 05/11/21 Status: Ordered HumaLOG KwikPen 100 units/mL injectable solution See Instructions, Mealtime insulin; dose according to finger stick before meals FS 150-199: 5 unitsFS: 200-249: 6 units FS 250-299: 7 units FS above 300: 8 units, # 15 mL, 11 Refills, 05/04/22 11:25:00 EDT, [facility], 164, cm... Start Date: 05/04/22 Status: Ordered isosorbide mononitrate 30 mg oral tablet, extended release 30 mg, 1, tablet, By Mouth, Daily at bedtime, Para el paty. Noelle antes de acostarse., # 30 tablet, Refills 11, Tot. Refills 11, Maintenance, 05/04/22 10:31:00 EDT, Route to Pharmacy Electronically, [facility], Partial fill upon pat... Start Date: 05/04/22 Status: Ordered Jardiance 10 mg oral tablet 1 tablet, By Mouth, Daily in AM, para bajar azucar y proteger el corazaon. Noelle por la amelie freitas., # 30 tablet, 11 Refills, 05/04/22 10:25:00 EDT, [facility], 164, cm, 05/04/22 9:09:00 EDT, Height, 87.5, kg, 02/10/21 9:00... Start Date: 05/04/22 Status: Ordered Lantus Solostar Pen 100 units/mL subcutaneous solution = 10 units, Subcutaneous Injection, Daily at bedtime, Insulina de 24 horas., # 10 mL, 11 Refills, Maintenance, 05/04/22 10:26:00 EDT, Injection, [facility], 164, cm, 05/04/22 9:09:00 EDT, Height, 87.5, kg, 02/10/21 9:00:00 EDT, Dry Weight Start Date: 05/04/22 Stop Date: 04/29/23 Status: Ordered Lipitor 80 mg oral tablet 1 tablet = 80 mg, By Mouth, Daily at bedtime, para colesterol / proteger el paty/ arterias tapadas en el paty, # 30 tablet, 11 Refills, Maintenance, 05/04/22 10:23:00 EDT, Tablet, [facility], Partial fill upon patient request, 16... Start Date: 05/04/22 Stop Date: 04/29/23 Status: Ordered LORazepam 0.5 mg oral tablet 1 tablet = 0.5 mg, By Mouth, Daily, PRN as needed for anxiety, for 30 days, Hasta noah vez al patito linda sea necesario para ansiedad severa/ ataque de panico. No noelle todos los menchaca. Pharm: dispense #15per 30d, [...] 05/04/22 10:27:00 EDT, Route to Pharmacy Electronically, [facility]... Start Date: 05/04/22 Status: Ordered midodrine 2.5 mg oral tablet 2.5 mg, 1, tablet, By Mouth, 3 times a day, In addition to 5 mg, 3 times daily as directed, # 270 tablet, Refills 0, Tot. Refills 0, Maintenance, 05/12/22 15:27:00 EDT, [facility]... Start Date: 05/12/22 Stop Date: 08/10/22 Status: Ordered midodrine 5 mg oral tablet 7.5 mg, Tablet, By Mouth, 05/21/22 21:00:00 EST Start Date: 05/21/22 Stop Date: 05/21/22 Status: Completed midodrine 5 mg oral tablet 7.5 mg, Tablet, By Mouth, 05/22/22 9:00:00 EST Start Date: 05/22/22 Stop Date: 05/22/22 Status: Completed midodrine 5 mg oral tablet 5 mg, 1, tablet, By Mouth, 3 times a day, Para SUBIR la presion para que no se desmaye al pararse, # 90 tablet, Refills 11, Tot. Refills 11, Maintenance, 05/04/22 10:27:00 EDT, [facility], [facility]... Start Date: 05/04/22 Status: Ordered nortriptyline 10 mg oral capsule 10 mg, 1, capsule, By Mouth, Daily at bedtime, [place] medicamento (05/04/22) para dolor neuropatico.No noelle junto con trazodone porque puede causar sedacion., # 30 capsule, Refills 1, Tot. Refills 1,Maintenance, 05/04/22 10:36:00 EDT, Route to Pharm... Start Date: 05/04/22 Status: Ordered rollator walker w/ 4 wheels, seat and brakes rollator walker w/ 4 wheels, seat and brakes, See Instructions, # 1 each, Refills 0, Tot. Refills 0, Maintenance, dx: diabetes with neuropathy ICD10: E11.40 duration: 99 weeks height: 164cm weight: 93kg, 11/21/21 16:40:00 EDT, sent to [facility]. Start Date: 11/21/21 Status: Ordered shower [...] Anxiety and depression Confirmed Active Obese class II Confirmed Active Orthostatic hypotension Confirmed Active Care coordination [facility] Care Management Bre Skinner, CC [phone] Confirmed 02/02/19 Active Thrombocytopenia Confirmed Active TIA (transient ischemic attack) Confirmed Active T2DM (type 2 diabetes mellitus) Confirmed Active Results Radiology Reports * Exam Date Time Procedure Performing Provider Status 05/20/22 5:24 PM Chest Portable Alicia Laisha; Auth (Verified) Notes: (Chest Portable) Reason For Exam: Chest Pain;Other: RESULT: Chest Portable Chest Portable Hx of Present Illness: Pt is coming from home by EMS for CP and abd pain for the last 2 days. C o of SOB. SPO2 95%. Cardiac HX; Reason: Other:; Chest Pain; Clinical Question(s): CHF COMPARISON: 06/21/2020 FINDINGS: LINES AND TUBES: None. LUNGS AND PLEURA: Clear lungs. Normal pulmonary vascularity. No pleural effusion. No pneumothorax. HEART, MEDIASTINUM AND JESUS: Heart is normal in size. Normal mediastinal and hilar contour. BONES AND SOFT TISSUES: No acute abnormality. IMPRESSION: No acute abnormality. WSN: [id number] Ordering Physician: Mecca Jackson Dictated By: Chuy Bundy MD Dictated Date/Time: 05/20/22 5:41 pm Reviewed By: Chuy Bundy MD Signed By: Chuy Bundy MD Signed Date/Time: 05/20/22 5:41 pm Transcribed By: CRISPIN Transcribed Date/Time: 05/20/22 5:40 pm Vital Signs Most recent to oldest [Reference Range]: 1 2 3 Height 165 cm (05/22/22 10:04 AM) 165 cm (05/22/22 4:16 AM) 165 cm (05/21/22 7:32 PM) Weight 84.3 kg (05/22/22 2:00 AM) 84.2 kg (05/21/22 12:41 AM) 84.3 kg (05/20/22 9:29 PM) Oxygen Saturation [94-100 %] 97 % (05/22/22 2:00 AM) 99 % (05/21/22 7:32 PM) 98 % (05/21/22 12:21 PM) Pulse Rate [55-90 bpm] 55 bpm (05/22/22 8:49 AM) 55 bpm (05/22/22 2:00 AM) 61 bpm (05/21/22 7:33 PM) Body Mass Index [18.5-24.99 kg/m2] 30.93 kg/m2 *>HHI* (05/21/22 12:41 AM) 30.96 kg/m2 *>HHI* (05/20/22 9:29 PM) Blood Pressure [90-138/55-84 mm Hg] 122/63mm Hg (05/22/22 8:49 AM) 122/63mm Hg (05/22/22 2:00 AM) 145/71mm Hg *H* (05/21/22 7:33 PM) Respiratory Rate [16-30 br/min] 18 br/min (05/22/22 2:00 AM) 17 br/min (05/21/22 7:32 PM) 16 br/min (05/21/22 12:21 PM) Temperature [96.8-100.4 DegF] 98.4 DegF (05/22/22 4:16 AM) 97.5 DegF (05/22/22 2:00 AM) 98.2 DegF (05/21/22 7:32 PM) Mode of Delivery (Oxygen) Room air (05/22/22 2:00 AM) Room air (05/21/22 7:32 PM) Room air (05/21/22 12:21 PM) Blood pressure sites Arm, right (05/22/22 2:00 AM) Arm, right (05/21/22 12:21 PM) Arm, left (05/21/22 8:39 AM) Temperature Route Oral (05/22/22 4:16 AM) Oral (05/22/22 2:00 AM) Oral (05/21/22 7:32 PM) Dry Weight 84.2 kg (05/21/22 12:41 AM) 84.3 kg (05/20/22 9:29 PM) Weight Obtained Via Bed scale (05/22/22 2:00 AM) Bed scale (05/21/22 12:41 AM) Bed scale (05/20/22 9:29 PM) Dry Weight Obtained Via Bed scale (05/21/22 12:41 AM) Bed scale (05/20/22 9:29 PM) Social History Social History Type Response Smoking Status Never (less than 100 in lifetime) entered on: 06/19/19 Sex Admission evaluation note * Amanda WHITE, Angie: PERFORM, MODIFY Event Display: Admission Note Authored Date: Patient: ??PARIS ROJO ? Age:??62 Years?Sex:??Male?:??1960?? Chief Complaint/Reason for Consultation Pt is coming from home by EMS for CP and abd pain for the last 2 days. C/o of SOB. SPO2 95%. Cardiac HX History of Present Illness ?? 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 This history was obtained with the aid of a thin film technician. ?? Patient reports experiencing intermittent??chest days for the past 2 days.?? The pain has an acute onset??last around??5 to 10 minutes??and resolves on its own.?? The chest pain is tight, heavy in character??and described as 6 out of 10 in severity at its peak.?? The chest pain is aggravated??by exertion??such as??walking up the stairs, brisk walking and running??and is relieved by rest.?? It is located??retrosternally and occasionally radiates to his left arm.?? Patient denies any associated shortness of breath, palpitations, lightheadedness, dizziness. ??Patient denies smoking, recreationaldrugs??or drinking alcohol,??recent stressful life events. Reports having??diet low in??fruits, vegetables, fiber??and??lack of exercise.. ??Patient reports being compliant with his medication. ?? Patient also reports experiencing severe diarrhea for the past 2 days.?? Patient reports experiencing around??6-8 episodes of??watery, voluminous, brown to yellow colored diarrhea. ??Patient denies??dark, tarry, foul-smelling stools??or bright red blood per rectum.?? This is associated with nausea??and loss of appetite without vomiting.?? Patient denies??recent antibiotic use, changes in his medication,??sick contacts??ingesting any new food, travel.?? He denies fevers, chills, rigors, upperrespiratory tract symptoms??or urinary symptoms.?? Patient reports that on day of admission??his son??who is also a PURCHASE REQUEST EDITOR??helped him towards the bathroom,??when he sat down on the toilet??he felt lightheaded??and fell down to his knees.?? His son??picked him up??and??placed him in the??bathtub and cleaned him.?? He continued to feel lightheaded??and was subsequently brought to the emergency department.?? Patient denies experiencing any chest pain, palpitations, vision changes, numbness or paresthesias??before, after or during the fall. ??Patient denies??loss of consciousness, confusion, seizure-like activity??or head injury. Patient had recent hospitalization from 04/07/2022 to 04/21/2022 forpresyncope with multiple falls during which he was noted to have orthostatic hypotension and was found to be COVID-positive. ?? Upon presentation to the ED he was afebrile, hemodynamically stable, saturating appropriately onroom air.?? Labs done in the ED showed no leukocytosis, no anemia, normal platelets.?? Electrolyteswere within normal limits, normal LFTs, normal lactate.?? 2 sets of troponin were negative, NT proBNP 235.?? Upon my evaluation of the patient he was lying comfortably in bed, currently chest pain-free concerned about his diarrhea. ?? Review of Systems Full review of systems was completed and is negative except as noted above Objective Vital Signs?? Temperature: 97.5 DegF (05/21/22 00:41:00) Temperature Route: Oral (05/21/22 00:41:00) Pulse Rate: 60 bpm (05/21/22 00:41:00) Pulse Rate, Lyin bpm (05/21/22 00:41:00) Systolic Blood Pressure, Lyin mm Hg (05/21/22 00:41:00) Diastolic Blood Pressure, Lyin mm Hg (05/21/22 00:41:00) Pulse Rate, Sittin bpm (05/21/22 00:41:00) Systolic Blood Pressure, Sittin mm Hg (05/21/22 00:41:00) Diastolic Blood Pressure, Sittin mm Hg (05/21/22 00:41:00) Pulse Rate, Standin bpm (05/21/22 00:41:00) Systolic Blood Pressure, Standin mm Hg (05/21/22 00:41:00) Diastolic Blood Pressure, Standin mm Hg (05/21/22 00:41:00) Respiratory Rate: 18 br/min (05/21/22 00:41:00) Systolic Blood Pressure: 132 mm Hg (05/21/22 00:41:00) Diastolic Blood Pressure: 68 mm Hg (05/21/22 00:41:00) Blood pressure sites: Arm, right (05/21/22 00:41:00) Mean Arterial Pressure: 89 mm Hg (05/21/22 00:41:00) Pulse Pressure: 64 mm Hg (05/21/22 00:41:00) Oxygen Saturation: 100 % (05/21/22 00:41:00) Mode of Delivery (Oxygen): Room air (05/21/22 00:41:00) Early Warning Score: 5 (05/21/22 00:50:11) ? Physical Exam General:??No acute distress HEENT:??PERRLA, EOMI, no nystagmus Respiratory:??Clear to auscultation bilaterally, no wheezes/crackles Cardiovascular:??RRR, S1 and S2 heard with no M/R/G. No JVD Abdomen:??Normal active bowel sounds, soft, non-tender, non-distended Musculoskeletal:??No LE edema, moving all extremities normally Neurologic:??Alert & Oriented, No focal neurologic deficits Skin:??Warm and dry, No rashes or lesions Psych: Normal mood and affect?? Assessment/Plan ?? Patient is a 62-year-old male with PMH of IDT2DM, ICM with chronically occluded LAD/RCA, HFmrEF (EF40-45%??2021), hypertension, hyperlipidemia prior CVA, orthostatic hypotension and depression/anxiety who presented to[facility] on 05/20/22 for??chest pain and diarrhea. ? Pre Syncope Diarrhoea Orthostatic Hypotension Patient had recent hospitalization from 04/07/2022 to 04/21/2022 for presyncope with multiple falls.?? He was noted to have orthostatic hypotension and was found to be COVID-positive. Differentials include??iatrogenic as patient is on??AV-zeenat blocking agents, electrolyte abnormalities however none noted on admission, infectious however afebrile with??no leukocytosis, ischemia however no raise in troponin and??non ischemic EKG,??and causes??of reflex syncope including vasovagalhowever no trigger identifiable (emotional stress/fear, pain), carotid sinus syncope (patient denies applying pressure to neck), situational however no trigger identified (such as coughing/sneezing).Seizure less likely as patient did not have evidence of seizure activity or post-ictal state. Patient's presyncope??may be secondary to??orthostatic hypotension??with??missing his??midodrine??exacerbated by??further volume depletion secondary to??viral gastroenteritis and poor p.o. intake ?? Plan: - Orthostatics - 250ml LR, encourage PO intake - Midodrine??7.5 mg??3 times daily?? - Compression stockings - Stool PCR viral panel - C. Diff antigen ?? Chronic anginal symptoms Ischemic??CM HFmrEF (40-45%) Multivessel CAD with chronically occluded LAD and RCA Was undergoing evaluation for ICD in the setting of known with chronically occluded LAD and RCA notamenable for surgical or percutaneous revascularization with history of severe LV dysfunction ejection fraction 30%, was recommended??to obtain cardiac catheterization to rule out progression of CAD,PCI 01/2021??without any significant changes. ??Was recently seen by his business employment specialist??in office visit on 05/12/2022,??was recommended to follow-up with electrophysiology and advanced heart failure. Echo 04/20/2022: LV systolic function mildly reduced, LVEF 40 to 45% with severe hypokinesis of the mid to distal anteroseptal wall, the distal anteroseptal and anterior pulido.?? The apex is akinetic.?? LV wall thickness moderately increased.?? Grade 2 moderate diastolic dysfunction with pseudo normal LV filling pattern and increased LA pressures.?? The RV is normal in size and functions. Home GDMT:?? Includes metoprolol ER 50 mg daily, lisinopril 5 mg daily, Imdur 30 mg daily, empagliflozin 10 mg daily (not on formulary?) ?? Plan:?? - Aspirin 81 mg and atorvastatin 80 mg daily - Metoprolol succinate 50 mg daily - Lisinopril 5 mg daily - Isosorbide mononitrate 30 mg??nightly - Sublingual nitroglycerin PRN - Cardiac Rehab - News Intern ? Chronic, Stable or Resolved Conditions: Depression/Anxiety: Ativan PRN Uncontrolled IDDM type II (A1c 10.1%): Lantus 5 units, ISS with POC TID and hypoglycemia measures Peripheral neuropathy: Nortriptyline Hypertension: Lisinopril 5 mg daily ? Quality Measures DVT prophylaxis: Lovenox Diet: Cardiac Code Status: Full HCP/Next of kin:??Joel updated 05/20/22 ? Patient case and plan discussed with ??Jl ? Angie Patel MD ?Internal Medicine PGY-1? #[id number] ?This note was accomplished using [employer] software. Despite my efforts at performing a careful and accurate dictation, this program is prone to speech recognition errors which may result in inaccurate documentation. If clinical questions should arise, please feel free to contact me. ? Histories Allergies Allergies ?(Active and Proposed Allergies Only) metFORMIN? (Severity: Unknown severity, Onset: Unknown) ?Reactions: GI symptoms ?Comments: GI intolreance ? Past Medical History/Problem List Active Problems??(15) Anxiety and depression CAD (coronary artery disease) Care coordination [facility] Care Management Bre Skinner, CC [phone] Diabetic autonomic neuropathy Diabetic nephropathy Diabetic peripheral neuropathy Dysphagia Hallucinations Hypertension Ischemic cardiomyopathy EF 30-35% on Echo 12/2018 Obese class I Orthostatic hypotension T2DM (type 2 diabetes mellitus) Thrombocytopenia TIA [...] Coronary artery disease ? Medications Home Medications Aspirin (aspirin 81 mg oral delayed release tablet)?81?Milligram?1?tablet?By Mouth?Daily?blood thinner/ hace la leonard ilene cullen - para proteger el paty/ arterias tapadas en el paty Atorvastatin (Lipitor 80 mg oral tablet)?1?tab(s)?80?Milligram?By Mouth?Daily at bedtime?for 30?Days?para colesterol / proteger el paty/ arterias tapadas en el paty Durable Medical Equipment (shower chair)?See Instructions?diagnosis: diabetic neuropathy, [id number]: E10.42duration: 99 weeks Durable Medical Equipment (toilet seat)?See Instructions?to reduce risk of fallsdx: diabetic cytvvrmhzgJFU05: E11.40duration: 52 weeks Durable Medical Equipment (walker with wheels and brakes)?See Instructions?dx: diabetic neuropathy, [id number]: E10.42duration: 99 weeks Durable Medical Equipment (shower bars)?See Instructions?dx: T1DM with severe nxyzjcxxswFIF75: E10.40duration: 52 weeks Durable Medical Equipment (blood pressure cuff)?See Instructions?as needed?Pain , Mild?for medication titrationdx: essential okvnxhrtaplhXBI26: U62yeihspno: 52 weeks Durable Medical Equipment (rollator walker w/ 4 wheels, seat and brakes)?See Instructions?dx:diabetes with bzbriechfeKJT15: E11.40duration: 99 weeksheight: 164cmweight: 93kg Durable Medical Equipment (bed liners)?See Instructions?dx: incontinence, [id number]: N31.9duration: 99 weeks Durable Medical Equipment (disinfectant wipes)?See Instructions?dx: incontinence, [id number]: N31.9duration: 99 Durable Medical Equipment (briefs - adult size medium)?See Instructions?dx: incontinence, B1BZmbg67: N31.9duration: 99 weeksnote size change Durable Medical Equipment (Alcohol Pads)?See Instructions?To test 3 times a day and with symptomsDx: [id number]: E11.9duration: 52 weeks Durable Medical Equipment (Compression stockings, thigh-high)?See Instructions?Grade II: 20-30mmHgDispense 2 pairs ALEIDA 99; Dx I 95.1; G99. 0Ht 164cm Wt 88.2kg ??BMI 32Fax to [facility] Durable Medical Equipment (Abdominal binder for treatment of orthostatic hypotension)?See Instructions?Dispense 2 pairs ALEIDA 99; Dx I 95.1; G99. 0Ht 164cm Wt 88.2kg ??BMI 32Fax to [facility] Durable Medical Equipment (FreeStyle Vladislav 2 Sensors)?See Instructions?apply one sensor every14 days; check glucose qid;E11.65 Durable Medical Equipment (FreeStyle Vladislav 2 Monitor)?See Instructions?apply one sensor every14 days; check glucose qid;E11.65 Durable Medical Equipment (medical alert system)?See Instructions?dx: T2DM with severe neuropathy, frequent zfpgmHWA40: E11.40duration: 99 empagliflozin (Jardiance 10 mg oral tablet)?1?tab(s)?By Mouth?Daily in AM?para bajarazucar y proteger el corazaon. ??Noelle por la manana, le tammy orinar. Insulin Glargine (Lantus Solostar Pen 100 units/mL subcutaneous solution)?10?unit(s)?Subcutaneous Injection?Daily at bedtime?for 30?Days?Insulina de 24 horas. Insulin Lispro (HumaLOG KwikPen 100 units/mL injectable solution)?See Instructions?Mealtime insulin; dose according to finger stick before meals FS 150-199: 5 units FS: 200-249: 6 units FS 250-299: 7 units FS above 300: 8 units Isosorbide Mononitrate (isosorbide mononitrate 30 mg oral tablet, extended release)?30?Milligram?1?tablet?By Mouth?Daily at bedtime?Para el paty. ??Noelle antes de acostarse. Lorazepam (LORazepam 0.5 mg oral tablet)?1?tab(s)?0.5?Milligram?By Mouth?Daily?as needed?as needed for anxiety?for 30?Days?Hasta noah vez al patito linda sea necesario para ansiedad severa/ ataque de panico. ??No noelle todos los menchaca.Pharm: dispense #15 per 30d Metoprolol (metoprolol 50 mg oral tablet, extended release)?50?Milligram?1?tablet?ByMouth?Daily at bedtime?para proteger el paty/ prevenir palpitacionesBeba antes de acostarse. Midodrine (midodrine 5 mg oral tablet)?5?Milligram?1?tablet?By Mouth?3 times a day?Para SUBIR la presion para que no se desmaye al pararse Midodrine (midodrine 2.5 mg oral tablet)?2.5?Milligram?1?tablet?By Mouth?3 times a day?for 90?Days?In addition to 5 mg, 3 times dailyas directed Miscellaneous Rx (Hand Held Shower Head)?See Instructions?diagnosis: diabetic neuropathy, T1DM. ICD10: E10.42duration: 99 weeks. Fax to Cheryl ([facility]) Miscellaneous Rx (Diabetic Shoes with Inserts)?See Instructions?Wear for diabetic foot care. Diagnosis: Type II DM, ICD10 E11.65. Fax to [address] [facility] [place]. Nortriptyline (nortriptyline 10 mg oral capsule)?10?Milligram?1?capsule?By Mouth?Daily at bedtime?[place] medicamento (05/04/22) para dolor neuropatico. ??No noelle junto con trazodone porque puede causar sedacion. ? Results Recent Labs BLOOD COUNT & DIFF WBC 5.3 k/mm3 ()?? 05/20/2022 16:49 RBC 5.50 m/mm3 ()?? 05/20/2022 16:49 Hgb 15.7 Gm/dL ()?? 05/20/2022 16:49 Hct 47.2 % ()?? 05/20/2022 16:49 MCV 85.8 femtoliters ()?? 05/20/2022 16:49 MCH 28.5 pg ()?? 05/20/2022 16:49 MCHC 33.3 g/dL ()?? 05/20/2022 16:49 Platelet Count 148 k/mm3 (Low)?? 05/20/2022 16:49 RDW-SD 41.7 femtoliters ()?? 05/20/2022 16:49 MPV 12.8 femtoliters (High)?? 05/20/2022 16:49 Nucleated RBC (Automated) 0.0 #/100 WBC'S ()?? 05/20/2022 16:49 Abs. NRBC 0.0 k/mm3 ()?? 05/20/2022 16:49 Abs. Neut 3.3 k/mm3 ()?? 05/20/2022 16:49 Abs. Lymph 1.4 k/mm3 ()?? 05/20/2022 16:49 Abs. [place] 0.4 k/mm3 ()?? 05/20/2022 16:49 Abs. Eo 0.2 k/mm3 ()?? 05/20/2022 16:49 Abs. Baso 0.0 k/mm3 ()?? 05/20/2022 16:49 Neut % 61.5 % ()?? 05/20/2022 16:49 Lymph % 26.0 % ()?? 05/20/2022 16:49 [place] % 8.2 % ()?? 05/20/2022 16:49 Eos % 3.9 % ()?? 05/20/2022 16:49 Baso % 0.2 % ()?? 05/20/2022 16:49 Imm Gran 0.2 % ()?? 05/20/2022 16:49 Abs. Imm Gran 0.0 k/mm3 ()?? 05/20/2022 16:49 ?? CARDIAC CK, Total 39 units/L ()?? 05/20/2022 22:56 Troponin T Quant 0.01 ng/mL ()?? 05/20/2022 22:56 Nt-Probnp 235 pg/mL (High)?? 05/20/2022 16:49 ?? CHEM GENERAL Sodium 141 mmol/L ()?? 05/20/2022 16:49 Potassium 3.8 mmol/L ()?? 05/20/2022 16:49 Chloride 102 mmol/L ()?? 05/20/2022 16:49 Bicarbonate Level 27 mmol/L ()?? 05/20/2022 16:49 Anion Gap 12 ()?? 05/20/2022 16:49 Glucose Level 146 mg/dL (High)?? 05/20/2022 16:49 Glucose, POC 113 mg/dL (High)?? 05/20/2022 21:41 BUN 17 mg/dL ()?? 05/20/2022 16:49 Creatinine-Blood 1.2 mg/dL ()?? 05/20/2022 16:49 Estimated GFR Creatinine 71 ML/MIN/1.73 M2 ()?? 05/20/2022 16:49 Calcium 9.0 mg/dL ()?? 05/20/2022 16:49 Calcium, Ionized pH Corrected 1.17 mmol/L ()?? 05/20/2022 16:49 Magnesium 1.7 mg/dL ()?? 05/20/2022 16:49 Protein, Total 6.5 Gm/dL ()?? 05/20/2022 16:49 Albumin 4.4 Gm/dL ()?? 05/20/2022 16:49 AG Ratio 2.1 ()?? 05/20/2022 16:49 Alkaline Phosphatase 129 units/L ()?? 05/20/2022 16:49 Lipase 16 units/L ()?? 05/20/2022 16:49 AST (SGOT) 17 units/L ()?? 05/20/2022 16:49 ALT (SGPT) 21 units/L ()?? 05/20/2022 16:49 Bilirubin, Total 1.0 mg/dL ()?? 05/20/2022 16:49 Lactate 1.3 mmol/L ()?? 05/20/2022 16:49 ?? COAG APTT 26.2 seconds ()?? 05/20/2022 16:49 ? Abnormal Labs ?? BLOOD COUNT & DIFF ??Abs. Imm Gran ??0.0 k/mm3 () ??05/20/2022 16:49 ??Abs. NRBC ??0.0 k/mm3 () ??05/20/2022 16:49 ??Imm Gran ??0.2 % () ??05/20/2022 16:49 ??MPV ??12.8 femtoliters (High) ??05/20/2022 16:49 ??Nucleated RBC (Automated) ??0.0 #/100 WBC'S () ??05/20/2022 16:49 ??Platelet Count ??148 k/mm3 (Low) ??05/20/2022 16:49 ??RDW-SD ??41.7 femtoliters () ??05/20/2022 16:49 ? CARDIAC ??Nt-Probnp ??235 pg/mL (High) ??05/20/2022 16:49 ? CHEM GENERAL ??AG Ratio ??2.1 () ??05/20/2022 16:49 ??Estimated GFR Creatinine ??71 ML/MIN/1.73 M2 () ??05/20/2022 16:49 ??Glucose Level ??146 mg/dL (High) ??05/20/2022 16:49 ??Glucose, POC ??113 mg/dL (High) ??05/20/2022 21:41 ? Note: Critical results are displayed in red. ? Cardiology Labs CK, Total: 39 units/L (05/20/22 22:56:00) CK, Total: 36 units/L (05/20/22 16:49:00) Troponin T Quant: 0.01 ng/mL (05/20/22 22:56:00) Troponin T Quant: 0.02 ng/mL (05/20/22 16:49:00) Nt-Probnp:??235 pg/mL??High (05/20/22 16:49:00) ?? * Jl WHITE, Salma Tobin: PERFORM Event Display: Admission Note Authored Date: [id number] Attending attestation.??Patient seen and examined on May 20. Reviewed ALEX LEMUS. I have independentlyexamined the patient and confirmed physical exam findings. Agree with assessment and plan as outlined in Dr. Patel's note. ?? 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 Upon presentation he was afebrile, hemodynamically stable. CBC within normal limits. Random glucose 146. Troponin 0.02,BNP 235. Portable chest x-ray was reported as no acute abnormality. EKG normal sinus rhythm with sinus arrhythmia. T inversions in lateral leads as well as anteroseptal leads. He was given 50 mcg of fentanyl, 4 mg of Zofran, 250 cc of LR bolus the emergency room. Presyncope??likely secondary??to volume loss from profound diarrhea. No recent Abx intake. Stool studies pending. If he is orthostatic, will give more fluids. ?? EKG study * Event Display: ECG 12-Lead Authored Date: Please click on pdf link to open report * Event Display: ECG 12-Lead Authored Date: Ventricular Rate: 57 BPM Atrial Rate: 57 BPM P-R Interval: 160 ms QRS Duration: 88 ms Q-T Interval: 432 ms QTC Calculation(Bazett): 420 ms P [place]: 23 degrees R [place]: -50 degrees T [place]: 121 degrees Sinus bradycardia Pulmonary disease pattern Left anterior fascicular block Septal infarct , age undetermined ST and T wave abnormality, consider anterolateral ischemia Abnormal ECG When compared with ECG of 20-MAY-2022 16:31, MANUAL COMPARISON REQUIRED, DATA IS UNCONFIRMED Confirmed by PRIMITIVO PARR MD () on 05/21/2022 7:18:14 PM [place]: PRIMITIVO APRR MD * Event Display: ECG 12-Lead Authored Date: Please click on pdf link to open report * Event Display: ECG 12-Lead Authored Date: Ventricular Rate: 63 BPM Atrial Rate: 63 BPM P-R Interval: 172 ms QRS Duration: 104 ms Q-T Interval: 406 ms QTC Calculation(Bazett): 415 ms P [place]: -6 degrees R [place]: -50 degrees T [place]: 139 degrees Normal sinus rhythm with sinus arrhythmia Left anterior fascicular block Anteroseptal infarct (cited on or before 19-JUN-2019) ST and T wave abnormality, consider lateral ischemia Abnormal ECG When compared with ECG of 08-APR-2022 04:01, No significant change was found Confirmed by PRIMITIVO PARR MD ([id number]) on 05/21/2022 7:18:25 PM [place]: PRIMITIVO PARR MD [facility] Progress note * Chris EPPERSON, Leonard: VERIFY, PERFORM, SIGN Event Display: Progress Note Hospital Authored Date: Patient: PARIS ROJO Age: 62 years Sex: Male : 1960 Associated Diagnoses: None Author: Chris EPPERSON, Leonard Findings Problem Related to Alteration in Cardiac Function (new) : Alteration in Cardiac Function/new 05/21/2022 21:00 EST Alteration in Cardiac Status Related to ACS Goals & Outcomes, Cardiac Status Pt will resume/maintain adequate cardiac output, Pt will resume/maintain adequate hemodynamic status, Pt will resume/maintain adequate respiratory function, Pt will resume/maintain intact neuro function, Pt will maintain adequate GI/ function appropriate for pt, Pt will maintain adequate nutrition status, Pt/caregiver will state understanding of diagnosis, Pt/caregiver will state strategies to reduce risk factors Cardiac Interventions Implemented Assess/monitor cardiac status, Assess/monitor neuro status, Assess/monitor respiratory status Goals/Interventions, Cardiac Yes Cardiac, Problem Start 05/21/2022 4:21 Reviewed Plan with, Cardiac Status Patient Patient Progression, Cardiac Status Plan Initiation . Evaluation Patient alert and oriented X3.Telemetry NSR in 60's. lungs clear with auscultation. Pt denies any CP and SOB at this time. Pt resting in bed.Call gallegos within reach.Bed alarms on.will continue to monitor and report any changes to MD.. * Kamlesh WHITE, Bunny P: PERFORM, MODIFY Event Display: Progress Note Hospital Authored Date: [id number] Patient: ??PARIS ROJO ? Age:??62 Years?Sex:??Male?:??1960?? Subjective 05/21:??Patient accepted under my care at 7 AM.?? Continues with intermittent chest pain. ??His diarrhea appears to be resolving so stool studies have not yet been sent. ??Overnight, his orthostatic??did have some??orthostatic??changes with standing.?? Given his history of advanced??heart failure??and recurrent symptoms,??Cardiology consultation has been requested. ?? Review of Systems Constitutional:??denies F/C Cardiovascular:??Intermittent??exertional chest pain Respiratory:??no SOB or significant cough Gastrointestinal:??no N/V diarrhea appears to be resolving :??no complaints Objective Measurements?? Height: 165 cm (05/21/22) Weight: 84.2 kg (05/21/22) Dry Weight: 84.2 kg (05/21/22) Body Mass Index:??30.93 kg/m2??Critical (05/21/22) ? Vital Signs?? Temperature: 97.8 DegF (05/21/22 12:21:00) Temperature Route: Oral (05/21/22 12:21:00) Pulse Rate: 61 bpm (05/21/22 14:32:00) Pulse Rate, Lyin bpm (05/21/22 00:41:00) Systolic Blood Pressure, Lyin mm Hg (05/21/22 00:41:00) Diastolic Blood Pressure, Lyin mm Hg (05/21/22 00:41:00) Pulse Rate, Sittin bpm (05/21/22 00:41:00) Systolic Blood Pressure, Sittin mm Hg (05/21/22 00:41:00) Diastolic Blood Pressure, Sittin mm Hg (05/21/22 00:41:00) Pulse Rate, Standin bpm (05/21/22 00:41:00) Systolic Blood Pressure, Stand[place] mm Hg (05/21/22 00:41:00) Diastolic Blood Pressure, Stand[place] mm Hg (05/21/22 00:41:00) Respiratory Rate: 16 br/min (05/21/22 12:21:00) Systolic Blood Pressure: 129 mm Hg (05/21/22 14:32:00) Diastolic Blood Pressure: 70 mm Hg (05/21/22 14:32:00) Blood pressure sites: Arm, right (05/21/22 12:21:00) Mean Arterial Pressure: 86 mm Hg (05/21/22 12:21:00) Pulse Pressure: 66 mm Hg (05/21/22 12:21:00) Oxygen Saturation: 98 % (05/21/22 12:21:00) Mode of Delivery (Oxygen): Room air (05/21/22 12:21:00) Early Warning Score: 5 (05/21/22 14:33:07) ? Pain Scores 1 - 10 Pain Scale Score: 7 (16:36) ? Intake/Output? No Data Available ? Physical Exam Constitutional: Alert, in no acute distress. Head EENT: PERRL.??NCAT. Neck: Supple. No obvious LAD. Respiratory: CTAB. No use of accessory muscles. Cardiovascular: S1S2 present. No obvious JVD. Gastrointestinal: Abdomen soft, non-tender, non-distended. Bowel sounds present. Genitourinary: No CVA tenderness. Genital exam deferred. Extremities: No lower extremity pitting??edema. No cyanosis or clubbing. Neurologic: Alert, generally appropriate. Speech normal. No gross focal neurological deficits. _ Inpatient Medications Medications (18) Active SCHEDULED: (12) Aspirin 81 mg EC Tablet (aspirin 81 mg oral delayed release tablet) ??81 mg, By Mouth, Daily Atorvastatin 80 mg Tablet (Lipitor 80 mg oral tablet) ??80 mg, By Mouth, Daily at bedtime Enoxaparin 40 mg Inj (Enoxaparin Inj) ??40 mg 0.4 mL, Subcutaneous Injection, Daily Influenza Quad (6mo - 64 yr) Fluzone 0.5mL (Influenza, Quadrivalent Vaccine (Fluzone Quad)) ??0.5 mL, Intramuscular, Once Insulin Glargine 100 units/mL Inj (Lantus Inj) ??5 units 0.05 mL, Subcutaneous Injection, Daily at bedtime Insulin Lispro 100 units/mL Inj (3mL) (Insulin LISPRO Sliding Scale) ??2-10 units, Subcutaneous Injection, 3 times a day before meals Isosorbide Mononitrate 30 mg ER Tablet (isosorbide mononitrate 30 mg oral tablet, extended release)??30 mg, By Mouth, Daily at bedtime Lisinopril 5 mg Tablet (lisinopril 5 mg oral tablet) ??5 mg, By Mouth, Daily Metoprolol 50 mg XL Tablet (metoprolol 50 mg oral tablet, extended release) ??50 mg, By Mouth, Daily at bedtime Midodrine 5 mg Tablet (midodrine 5 mg oral tablet) ??7.5 mg, By Mouth, 3 times a day NaCl 0.9% Flush 3ml (NaCL 0.9% Flush) ??3 mL, IV Push, Every 8 hours Nortriptyline 10 mg Capsule (nortriptyline 10 mg oral capsule) ??10 mg, By Mouth, Daily at bedtime CONTINUOUS: (0) PRN: (6) Acetaminophen 325 mg Tablet (Acetaminophen Tablet) ??650 mg, By Mouth, Every 4 hours Lorazepam 0.5 mg Tablet (LORazepam 0.5 mg oral tablet) ??0.5 mg, By Mouth, Daily NaCl 0.9% Flush 3ml (NaCL 0.9% Flush) ??3 mL, IV Push, Every 8 hours Nitroglycerin 0.4 mg Sublingual Tablet (Nitrostat 0.4 mg sublingual tablet) ??0.4 mg, Sublingual, Every 5 minutes Ondansetron 2mg/mL Inj (2mL Vial) (Ondansetron Inj) ??4 mg, IV Push Slowly, Every 30 minutes Ondansetron 2mg/mL Inj (2mL Vial) (Ondansetron Inj) ??4 mg, IV Push, Every 6 hours ? Results Recent Labs BLOOD COUNT & DIFF WBC 5.4 k/mm3 ()?? 05/21/2022 03:45 RBC 5.05 m/mm3 ()?? 05/21/2022 03:45 Hgb 14.5 Gm/dL ()?? 05/21/2022 03:45 Hct 43.7 % ()?? 05/21/2022 03:45 MCV 86.5 femtoliters ()?? 05/21/2022 03:45 MCH 28.7 pg ()?? 05/21/2022 03:45 MCHC 33.2 g/dL ()?? 05/21/2022 03:45 Platelet Count 132 k/mm3 (Low)?? 05/21/2022 03:45 RDW-SD 42.0 femtoliters ()?? 05/21/2022 03:45 MPV 12.5 femtoliters (High)?? 05/21/2022 03:45 Nucleated RBC (Automated) 0.0 #/100 WBC'S ()?? 05/21/2022 03:45 Abs. NRBC 0.0 k/mm3 ()?? 05/21/2022 03:45 Abs. Neut 2.5 k/mm3 ()?? 05/21/2022 03:45 Abs. Lymph 2.1 k/mm3 ()?? 05/21/2022 03:45 Abs. [place] 0.5 k/mm3 ()?? 05/21/2022 03:45 Abs. Eo 0.3 k/mm3 ()?? 05/21/2022 03:45 Abs. Baso 0.0 k/mm3 ()?? 05/21/2022 03:45 Neut % 46.5 % ()?? 05/21/2022 03:45 Lymph % 39.0 % ()?? 05/21/2022 03:45 [place] % 8.7 % ()?? 05/21/2022 03:45 Eos % 5.0 % ()?? 05/21/2022 03:45 Baso % 0.4 % ()?? 05/21/2022 03:45 Imm Gran 0.4 % ()?? 05/21/2022 03:45 Abs. Imm Gran 0.0 k/mm3 ()?? 05/21/2022 03:45 ?? CARDIAC CK, Total 37 units/L ()?? 05/21/2022 03:45 Troponin T Quant 0.01 ng/mL ()?? 05/21/2022 03:45 Nt-Probnp 235 pg/mL (High)?? 05/20/2022 16:49 ?? CHEM GENERAL Sodium 140 mmol/L ()?? 05/21/2022 03:45 Potassium 4.3 mmol/L ()?? 05/21/2022 03:45 Chloride 103 mmol/L ()?? 05/21/2022 03:45 Bicarbonate Level 30 mmol/L (High)?? 05/21/2022 03:45 Anion Gap 7 ()?? 05/21/2022 03:45 Glucose Level 212 mg/dL (High)?? 05/21/2022 03:45 Glucose, POC 235 mg/dL (High)?? 05/21/2022 12:23 BUN 18 mg/dL ()?? 05/21/2022 03:45 Creatinine-Blood 1.1 mg/dL ()?? 05/21/2022 03:45 Estimated GFR Creatinine 76 ML/MIN/1.73 M2 ()?? 05/21/2022 03:45 Calcium 9.0 mg/dL ()?? 05/21/2022 03:45 Calcium, Ionized pH Corrected 1.17 mmol/L ()?? 05/20/2022 16:49 Magnesium 1.7 mg/dL ()?? 05/20/2022 16:49 Protein, Total 6.5 Gm/dL ()?? 05/20/2022 16:49 Albumin 4.4 Gm/dL ()?? 05/20/2022 16:49 AG Ratio 2.1 ()?? 05/20/2022 16:49 Alkaline Phosphatase 129 units/L ()?? 05/20/2022 16:49 Lipase 16 units/L ()?? 05/20/2022 16:49 AST (SGOT) 17 units/L ()?? 05/20/2022 16:49 ALT (SGPT) 21 units/L ()?? 05/20/2022 16:49 Bilirubin, Total 1.0 mg/dL ()?? 05/20/2022 16:49 Lactate 1.3 mmol/L ()?? 05/20/2022 16:49 ?? COAG APTT 26.2 seconds ()?? 05/20/2022 16:49 ? Assessment/Plan Diagnoses Chest pain ??(R07.9) Diarrhea, unspecified type ??(R19.7) Pre-syncope ??(R55) Systolic CHF, chronic ??(I50.22) ?? Assessment:??62-year-old male with PMH of IDT2DM, ICM with chronically occluded LAD/RCA, HFmrEF (EF40-45% 2021), hypertension, hyperlipidemia prior CVA, orthostatic hypotension and depression/anxiety who presented to [facility] on 05/20/22 for chest pain and diarrhea, admitted to Medicine service??for observation. ?? Pre Syncope Diarrhoea Orthostatic Hypotension >Patient had recent hospitalization from 04/07/2022 to 04/21/2022 for presyncope with multiple falls. He was noted to have orthostatic hypotension and was found to be COVID-positive. >??Differentials include iatrogenic as patient is on AV-zeenat blocking agents, electrolyte abnormalities however none noted on admission, infectious however afebrile with no leukocytosis, ischemiahowever no raise in troponin and non ischemic EKG, and causes of reflex syncope including vasovagalhowever no trigger identifiable (emotional stress/fear, pain), carotid sinus syncope (patient denies applying pressure to neck), situational however no trigger identified (such as coughing/sneezing).Seizure less likely as patient did not have evidence of seizure activity or post-ictal state. ??Patient's presyncope may be secondary to orthostatic hypotension with missing his midodrine exacerbated by further volume depletion secondary to viral gastroenteritis and poor p.o. intake ?? -Continue observation -Recheck??Orthostatics -Further IV fluids if again positive -Midodrine 7.5 mg 3 times daily -Compression stockings -We will send??stool studies if he has further diarrhea -PT eval as well ?? Chronic anginal symptoms Ischemic CM HFmrEF (40-45%) Multivessel CAD with chronically occluded LAD and RCA >Was undergoing evaluation for ICD in the setting of known with chronically occluded LAD and RCAnot amenable for surgical or percutaneous revascularization with history of severe LV dysfunction ejection fraction 30%, was recommended to obtain cardiac catheterization to rule out progression of CAD, PCI 01/2021 without any significant changes. 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 >??Echo 04/20/2022: LV systolic function mildly reduced, LVEF 40 to 45% with severe hypokinesis of the mid to distal anteroseptal wall, the distal anteroseptal and anterior pulido. The apex is akinetic. LV wall thickness moderately increased. Grade 2 moderate diastolic dysfunction with pseudo normal LV filling pattern and increased LA pressures. The RV is normal in size and functions. >??Home GDMT: Includes metoprolol ER 50 mg daily, lisinopril 5 mg daily, Imdur 30 mg daily, empagliflozin 10 mg daily (not on formulary?) ?- Aspirin 81 mg and atorvastatin 80 mg daily ??- Metoprolol succinate 50 mg daily ??- Stop Lisinopril 5 mg daily per??Cards (was stopped as outpatient) ??- Isosorbide mononitrate 30 mg nightly ??- Sublingual nitroglycerin PRN -Cardiology consultation -Consider Advanced HF eval, most likely can be done as outpatient -Consider Cardiac Rehab eval ??- News Intern ?? Chronic, Stable or Resolved Conditions: Depression/Anxiety:??Ativan PRN Uncontrolled IDDM type II (A1c 10.1%):??Lantus 5 units, ISS with POC TID and hypoglycemia measures Peripheral neuropathy:??Nortriptyline Hypertension:??Lisinopril 5 mg daily ?? Discharge Planning:?? Possible DC if orthos stable and if he does OK with PT.? * Radha Cancino RN: PERFORM, SIGN, VERIFY Event Display: Progress Note Hospital Authored Date: Patient: PARIS ROJO Age: 62 years Sex: Male : 1960 Associated Diagnoses: None Author: Radha Cancino RN Findings Evaluation Pt A+Ox4, Uzbek speaking, but understands some Vietnamese, per diem physical therapist assistant was paged. denies palpitations, n/v. c/o 3/10 CP, states it is the same type of chest pain he has been having since last night in the ED. aware, ekg obtained. Pt resting in bed, call gallegos within reach, please see biophysical for complete assessment. . Note * Leah Alves: PERFORM Event Display: Discharge/Transfer Note Hospital Authored Date: Nursing Discharge Note Entered On: 05/22/2022 14:32 EST Performed On: 05/22/2022 14:31 EST by Leah Alves Nursing Discharge Note 2 Discharge Time : 05/22/2022 13:30 EST Discharge Level of Care at Discharge : Homehealth/VNA Discharge VNA/Hospice/Home Care(v001) : [facility] Patient Left Unit Via : Wheelchair Patient Accompanied Off Unit with : Responsible adult DC Instructions Provided & Signed by Pt : Yes Patient Understands D/C Instructions : Yes Patient Instructions Discharge Signed : Yes Did Pt have Specialty Bed or Wound Vac : No Leah Alves - 05/22/2022 14:31 EST * Kamlesh WHITE, Bunny Kay: PERFORM Event Display: Discharge/Transfer Note Hospital Authored Date: Patient: ??PARIS ROJO ? Age:??62 Years?Sex:??Male?:??1960?? Patient Information Discharge Location: Primary Care Physician: Claire Trujillo MD Admit Date/Time: 05/20/22 16:14 Discharge Disposition Discharge Disposition: Home with service Discharge Diagnosis Chest pain (R07.9) Diarrhea, unspecified type (R19.7) Pre-syncope (R55) Systolic CHF, chronic (I50.22) Anxiety and depression CAD (coronary artery disease) Diabetic nephropathy Diabetic peripheral neuropathy Hypertension Ischemic cardiomyopathy EF 30-35% on Echo 12/2018 T2DM (type 2 diabetes mellitus) TIA (transient ischemic attack) Thrombocytopenia ?? _ Discharge Medications Acetaminophen (acetaminophen 325 mg oral tablet)?650?Milligram?By Mouth?Every 4 hours?as needed?Temperature Greater than 100.5?Pain , Mild Aspirin (aspirin 81 mg oral delayed release tablet)?81?Milligram?1?tablet?By Mouth?Daily?blood thinner/ hace la leonardnica berman - para proteger el paty/ arterias tapadas en el paty Atorvastatin (Lipitor 80 mg oral tablet)?1?tab(s)?80?Milligram?By Mouth?Daily at bedtime?for 30?Days?para colesterol / proteger el paty/ arterias tapadas en el paty Durable Medical Equipment (shower chair)?See Instructions?diagnosis: diabetic neuropathy, [id number]: E10.42duration: 99 weeks Durable Medical Equipment (toilet seat)?See Instructions?to reduce risk of fallsdx: diabetic swnqvghduvYOF35: E11.40duration: 52 weeks Durable Medical Equipment (walker with wheels and brakes)?See Instructions?dx: diabetic neuropathy, [id number]: E10.42duration: 99 weeks Durable Medical Equipment (shower bars)?See Instructions?dx: T1DM with severe [id number]: E10.40duration: 52 weeks Durable Medical Equipment (blood pressure cuff)?See Instructions?as needed?Pain , Mild?for medication titrationdx: essential [id number]: D34drehkoou: 52 weeks Durable Medical Equipment (rollator walker w/ 4 wheels, seat and brakes)?See Instructions?dx:diabetes with lvfzpvhnicIEN62: E11.40duration: 99 weeksheight: 164cmweight: 93kg Durable Medical Equipment (bed liners)?See Instructions?dx: incontinence, B1VHtiz38: N31.9duration: 99 weeks Durable Medical Equipment (disinfectant wipes)?See Instructions?dx: incontinence, [id number]: N31.9duration: 99 Durable Medical Equipment (briefs - adult size medium)?See Instructions?dx: incontinence, [id number]: N31.9duration: 99 weeksnote size change Durable Medical Equipment (Alcohol Pads)?See Instructions?To test 3 times a day and with symptomsDx: [id number]: E11.9duration: 52 weeks Durable Medical Equipment (Compression stockings, thigh-high)?See Instructions?Grade II: 20-30mmHgDispense 2 pairs ALEIDA 99; Dx I 95.1; G99. 0Ht 164cm Wt 88.2kg ??BMI 32Fax to [facility] Durable Medical Equipment (Abdominal binder for treatment of orthostatic hypotension)?See Instructions?Dispense 2 pairs ALEIDA 99; Dx I 95.1; G99. 0Ht 164cm Wt 88.2kg ??BMI 32Fax to [facility] Durable Medical Equipment (FreeStyle Vladislav 2 Sensors)?See Instructions?apply one sensor every14 days; check glucose qid;E11.65 Durable Medical Equipment (Research & InnovationStyle Vladislav 2 Monitor)?See Instructions?apply one sensor every14 days; check glucose qid;E11.65 Durable Medical Equipment (medical alert system)?See Instructions?dx: T2DM with severe neuropathy, frequent wsfzhZPU17: E11.40duration: 99 empagliflozin (Jardiance 10 mg oral tablet)?1?tab(s)?By Mouth?Daily in AM?para bajarazucar y proteger el corazaon. ??Noelle por la manana, le tammy orinar. Insulin Glargine (Lantus Solostar Pen 100 units/mL subcutaneous solution)?10?unit(s)?Subcutaneous Injection?Daily at bedtime?for 30?Days?Insulina de 24 horas. Insulin Lispro (HumaLOG KwikPen 100 units/mL injectable solution)?See Instructions?Mealtime insulin; dose according to finger stick before meals FS 150-199: 5 units FS: 200-249: 6 units FS 250-299: 7 units FS above 300: 8 units Isosorbide Mononitrate (isosorbide mononitrate 30 mg oral tablet, extended release)?30?Milligram?1?tablet?By Mouth?Daily at bedtime?Para el paty. ??Noelle antes de acostarse. Lorazepam (LORazepam 0.5 mg oral tablet)?1?tab(s)?0.5?Milligram?By Mouth?Daily?as needed?as needed for anxiety?for 30?Days?Hasta noah vez al patito linda sea necesario para ansiedad severa/ ataque de panico. ??No noelle todos los menchaca.Pharm: dispense #15 per 30d Metoprolol (metoprolol 50 mg oral tablet, extended release)?50?Milligram?1?tablet?ByMouth?Daily at bedtime?para proteger el paty/ prevenir palpitacionesBeba antes de acostarse. Midodrine (midodrine 5 mg oral tablet)?5?Milligram?1?tablet?By Mouth?3 times a day?Para SUBIR la presion para que no se desmaye al pararse Midodrine (midodrine 2.5 mg oral tablet)?2.5?Milligram?1?tablet?By Mouth?3 times a day?for 90?Days?In addition to 5 mg, 3 times dailyas directed Miscellaneous Rx (Hand Held Shower Head)?See Instructions?diagnosis: diabetic neuropathy, T1DM. ICD10: E10.42duration: 99 weeks. Fax to [facility] ([facility]) Miscellaneous Rx (Diabetic Shoes with Inserts)?See Instructions?Wear for diabetic foot care. Diagnosis: Type II DM, ICD10 E11.65. Fax to [facility]. Nortriptyline (nortriptyline 10 mg oral capsule)?10?Milligram?1?capsule?By Mouth?Daily at bedtime?[place] medicamento (05/04/22) para dolor neuropatico. ??No noelle junto con trazodone porque puede causar sedacion. ? Vaccinations and Immunoprophylaxis hepatitis B adult vaccine: 1 mL (04/17/19 10:56:00) hepatitis B adult vaccine: 1 mL (11/08/17 10:10:00) hepatitis B adult vaccine: 0 Unknown (10/29/14 08:00:00) influenza virus vaccine, inactivated: 0.5 mL (04/20/20 13:15:00) influenza virus vaccine, inactivated: 0.5 mL (04/17/19 10:54:00) influenza virus vaccine, inactivated: 0.5 mL (06/22/16 15:16:00) influenza virus vaccine, inactivated: 0.5 mL (11/01/15 14:33:00) influenza virus vaccine, inactivated: 0.5 Unknown (04/10/11 08:00:00) pneumococcal 23-valent vaccine: 0.5 mL (01/11/17 12:21:00) pneumococcal 23-valent vaccine: 0.5 Unknown (05/22/02 07:00:00) SARS-CoV-2 (COVID-19) mRNA BNT-162b2 vac: 0.3 Unknown (11/09/20 08:00:00) SARS-CoV-2 (COVID-19) mRNA BNT-162b2 vac: 0.3 Unknown (10/18/20 08:00:00) SARS-CoV-2 mRNA ([id number]-vxuw-uasao) vax: 0.3 mL (03/03/22 15:25:00) SARS-CoV-2 mRNA (sfiyssg-tudx-iiyhq) vax: 0.3 mL (08/27/21 10:20:00) tetanus/diphtheria/pertussis, acel(Tdap): 0.5 mL (01/11/17 12:22:00) tetanus-diphtheria toxoids (Td): 0.5 Unknown (01/30/05 08:00:00) ?? Durable Medical Equipment Discharge recommendations: Home with services (05/22/22) Name [facility] Agency [facility]1: [facility] [facility] (05/22/22) Agency [employer] Assistant #1: Brandi Brady (04/20/22) Service Categories #1: Physical Therapy, [facility] (05/22/22) Service Comments #1: [facility] will call you to set up time for your visit. If you don't hear from them . Please call agency directly. Thank you. (05/22/22) Ambulatory devices needed: None (05/22/22) ? Medications Started None Medications Discontinued Lisinopril Doses Changed None Allergies Allergies ?(Active and Proposed Allergies Only) metFORMIN? (Severity: Unknown severity, Onset: Unknown) ?Reactions: GI symptoms ?Comments: GI intolreance ? Future Appointments Sunday 1:00 PM EST ?? With: Where: [facility] [address] [place] [address]- 2021 11:30 AM EST ?? With: Aundrea Delarosa MD Where: [facility] [address] [place] [address]- 2021 10:20 AM EST ?? With: Where: [place] [address]- Sunday 2:45 PM EST ?? With: Payal WHITE, Renato Where: [facility] [address] [place] [address]- Sunday 2:15 PM EST ?? With: Juan Manuel WHITE, José Where: [facility] [address] [place] [address]- Hospital Course 62-year-old male with PMH of IDT2DM, ICM with chronically occluded LAD/RCA, HFmrEF (EF 40-45% 2021), hypertension, hyperlipidemia prior CVA, orthostatic hypotension and depression/anxiety who presented to [facility] on 05/20/22 for chest pain and diarrhea, admitted to Medicine service??for observation. ?? 05/21: Patient accepted under my care at 7 AM. Continues with intermittent chest pain. His diarrhea appears to be resolving so stool studies have not yet been sent. Overnight, his orthostatic did havesome orthostatic changes with standing. Given his history of advanced heart failure and recurrent symptoms, Cardiology consultation has been requested. ?? 05/22: AVSS. Diarrhea resolved. No symptoms or complaints. Patient evaluated by PT, orthostatic signs/symptoms resolved; he is at his chronic baseline and is recommended for DC HWS. Discussed with CM and his services are set up. Recommended to follow up with PCP, cards, and stop lisinopril. ? Assessment and Plan ?? Pre Syncope Diarrhoea Orthostatic Hypotension >Patient had recent hospitalization from 04/07/2022 to 04/21/2022 for presyncope with multiple falls. He was noted to have orthostatic hypotension and was found to be COVID-positive. >??Differentials include iatrogenic as patient is on AV-ezenat blocking agents, electrolyte abnormalities however none noted on admission, infectious however afebrile with no leukocytosis, ischemiahowever no raise in troponin and non ischemic EKG, and causes of reflex syncope including vasovagalhowever no trigger identifiable (emotional stress/fear, pain), carotid sinus syncope (patient denies applying pressure to neck), situational however no trigger identified (such as coughing/sneezing).Seizure less likely as patient did not have evidence of seizure activity or post-ictal state. ??Patient's presyncope may be secondary to orthostatic hypotension with missing his midodrine exacerbated by further volume depletion secondary to viral gastroenteritis and poor p.o. intake.??His diarrhea resolved and back to baseline. ?? -DC HWS -Midodrine 7.5 mg 3 times daily -Compression stockings -Appreciate PT, Cards input -PCP and??Cards follow up ? Chronic anginal symptoms Ischemic CM HFmrEF (40-45%) Multivessel CAD with chronically occluded LAD and RCA >Was undergoing evaluation for ICD in the setting of known with chronically occluded LAD and RCAnot amenable for surgical or percutaneous revascularization with history of severe LV dysfunction ejection fraction 30%, was recommended to obtain cardiac catheterization to rule out progression of CAD, PCI 01/2021 without any significant changes. 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 >??Echo 04/20/2022: LV systolic function mildly reduced, LVEF 40 to 45% with severe hypokinesis of the mid to distal anteroseptal wall, the distal anteroseptal and anterior pulido. The apex is akinetic. LV wall thickness moderately increased. Grade 2 moderate diastolic dysfunction with pseudo normal LV filling pattern and increased LA pressures. The RV is normal in size and functions. >??Home GDMT: Includes metoprolol ER 50 mg daily, lisinopril 5 mg daily, Imdur 30 mg daily, empagliflozin 10 mg daily (not on formulary?) ?- Aspirin 81 mg and atorvastatin 80 mg daily ??- Metoprolol succinate 50 mg daily -Stop lisinopril ??- Isosorbide mononitrate 30 mg nightly ??- Sublingual nitroglycerin PRN -Cards, HF follow up as outpatient ?? Chronic, Stable or Resolved Conditions: Depression/Anxiety:??Ativan PRN Uncontrolled IDDM type II (A1c 10.1%):??Lantus 5 units, ISS with POC TID and hypoglycemia measures Peripheral neuropathy:??Nortriptyline ? Objective Measurements?? Height: 165 cm (05/22/22) Weight: 84.3 kg (05/22/22) Dry Weight: 84.2 kg (05/21/22) Body Mass Index:??30.93 kg/m2??Critical (05/21/22) ? Vital Signs?? Temperature: 98.4 DegF (05/22/22 04:16:00) Temperature Route: Oral (05/22/22 04:16:00) Pulse Rate: 55 bpm (05/22/22 08:49:00) Pulse Rate, Lyin bpm (05/22/22 10:04:00) Systolic Blood Pressure, Lyin mm Hg (05/22/22 10:04:00) Diastolic Blood Pressure, Lyin mm Hg (05/22/22 10:04:00) Pulse Rate, Sittin bpm (05/22/22 10:04:00) Systolic Blood Pressure, Sittin mm Hg (05/22/22 10:04:00) Diastolic Blood Pressure, Sittin mm Hg (05/22/22 10:04:00) Pulse Rate, Standin bpm (05/22/22 10:04:00) Systolic Blood Pressure, Standin mm Hg (05/22/22 10:04:00) Diastolic Blood Pressure, Stand[place] mm Hg (05/22/22 10:04:00) Respiratory Rate: 18 br/min (05/22/22 02:00:00) Systolic Blood Pressure: 122 mm Hg (05/22/22 08:49:00) Diastolic Blood Pressure: 63 mm Hg (05/22/22 08:49:00) Blood pressure sites: Arm, right (05/22/22 02:00:00) Mean Arterial Pressure: 96 mm Hg (05/21/22 19:32:00) Pulse Pressure: 74 mm Hg (05/21/22 19:32:00) Oxygen Saturation: 97 % (05/22/22 02:00:00) Mode of Delivery (Oxygen): Room air (05/22/22 02:00:00) Early Warning Score: 3 (05/22/22 08:53:40) ? . Physical Exam Constitutional: Alert, in no acute distress. Head EENT: PERRL.??NCAT. Neck: Supple. No obvious LAD. Respiratory: CTAB. No use of accessory muscles. Cardiovascular: S1S2 present. No obvious JVD. Gastrointestinal: Abdomen soft, non-tender, non-distended. Bowel sounds present. Genitourinary: No CVA tenderness. Genital exam deferred. Extremities: No lower extremity pitting??edema. No cyanosis or clubbing. Neurologic: Alert, generally appropriate. Speech normal. No gross focal neurological deficits. Consultants Cards PT Pending Results Add On Lab Order ordered on 05/20/2022 Basic Metabolic Panel ordered on 05/23/2022 C. difficile Rapid Toxin Assay ordered on 05/20/2022 CBC ordered on 05/23/2022 COVID-19 (2019 Novel Coronavirus) PCR ordered on 05/22/2022 GI Profile, Stool, PCR ordered on 05/20/2022 Hold Lavender Tube (BB) ordered on 05/20/2022 Magnesium Level ordered on 05/23/2022 Follow-Up Appointments Added Follow Up ?Time Frame ?Comments [facility] Claire Trujillo MD Patient Instructions -Wear your stockings -Follow with PCP and Cardiology -Stop Lisinopril Post Discharge Care Discharge ?Home with service, ??05/22/22 10:34:00 EST Home Health Face to Face *Denotes mandatory bergman ?? *I certify that this patient is under my care and that I or an allowed non- physician working with me had a face to face encounter with the patient on this date:??05/22/2022 10:40 ?? *The encounter with the patient was in whole, or in part, for the following medical condition, which is the primary diagnosis(es) for home health care:??Chest pain (R07.9) Diarrhea, unspecified type (R19.7) Pre-syncope (R55) Systolic CHF, chronic (I50.22) Anxiety and depression CAD (coronary artery disease) Diabetic nephropathy Diabetic peripheral neuropathy Hypertension Ischemic cardiomyopathy EF 30-35% on Echo 12/2018 T2DM (type 2 diabetes mellitus) TIA (transient ischemic attack) Thrombocytopenia ? *Select the indications for the discipline/s that are being arranged for this patient. Nursing (select all that apply): [_] None [X] Medication management (reconciliation, teaching)?? [X] Chronic disease management?? [_] Wound care and treatment?? [_] Home safety evaluation [_] Administer SQ/IM/IV medications?? [_] Cath care?? [_] Drain care?? [_] Trach or GT care?? Other _ Occupation Therapy (select all that apply): [_] None [_] ADL Management [X] Fall prevention training [_] Energy conservation [_] Cognitive training Other _ Physical Therapy (select all that apply): [_] None [X] Functional mobility training [X] Home exercise program to strengthen [_] Increase ROM?? [X] Falls prevention training [_] Home maintenance program for chronic disease Other _ Speech Therapy (select all that apply): [_] None [_] Swallow evaluation and training [_] Speech and language training [_] Cognitive training to process, organize, and/or recall information Other _ ? *Homebound due to (select all that apply): [X] Inability to leave home without assistance/supervision [X] Inability to ambulate without assistance [_] Pain [_] Decreased strength and endurance [_] Unsteady gait [_] Severe SOB and fatigue [_] Impaired transfers [_] Inability to negotiate stairs [_] Limited weight bearing [_] Mental status change? *Physician Signature: Bunny Whitlock MD ?? *By signing this, I certify that I have personally evaluated the patient and agree with the findings and recommendations as documented above. ? Results Discharge Labs BLOOD COUNT & DIFF WBC 5.8 k/mm3 ()?? 05/22/2022 01:20 RBC 5.07 m/mm3 ()?? 05/22/2022 01:20 Hgb 14.6 Gm/dL ()?? 05/22/2022 01:20 Hct 42.7 % ()?? 05/22/2022 01:20 MCV 84.2 femtoliters ()?? 05/22/2022 01:20 MCH 28.8 pg ()?? 05/22/2022 01:20 MCHC 34.2 g/dL ()?? 05/22/2022 01:20 Platelet Count 141 k/mm3 (Low)?? 05/22/2022 01:20 RDW-SD 40.7 femtoliters ()?? 05/22/2022 01:20 MPV 12.3 femtoliters ()?? 05/22/2022 01:20 Nucleated RBC (Automated) 0.0 #/100 WBC'S ()?? 05/22/2022 01:20 Abs. NRBC 0.0 k/mm3 ()?? 05/22/2022 01:20 Abs. Neut 2.5 k/mm3 ()?? 05/21/2022 03:45 Abs. Lymph 2.1 k/mm3 ()?? 05/21/2022 03:45 Abs. [place] 0.5 k/mm3 ()?? 05/21/2022 03:45 Abs. Eo 0.3 k/mm3 ()?? 05/21/2022 03:45 Abs. Baso 0.0 k/mm3 ()?? 05/21/2022 03:45 Neut % 46.5 % ()?? 05/21/2022 03:45 Lymph % 39.0 % ()?? 05/21/2022 03:45 [place] % 8.7 % ()?? 05/21/2022 03:45 Eos % 5.0 % ()?? 05/21/2022 03:45 Baso % 0.4 % ()?? 05/21/2022 03:45 Imm Gran 0.4 % ()?? 05/21/2022 03:45 Abs. Imm Gran 0.0 k/mm3 ()?? 05/21/2022 03:45 ?? CARDIAC CK, Total 37 units/L ()?? 05/21/2022 03:45 Troponin T Quant 0.01 ng/mL ()?? 05/21/2022 03:45 Nt-Probnp 235 pg/mL (High)?? 05/20/2022 16:49 ? CHEM GENERAL Sodium 137 mmol/L ()?? 05/22/2022 01:20 Potassium 4.3 mmol/L ()?? 05/22/2022 01:20 Chloride 102 mmol/L ()?? 05/22/2022 01:20 Bicarbonate Level 28 mmol/L ()?? 05/22/2022 01:20 Anion Gap 7 ()?? 05/22/2022 01:20 Glucose Level 179 mg/dL (High)?? 05/22/2022 01:20 Glucose, POC 165 mg/dL (High)?? 05/22/2022 08:17 BUN 17 mg/dL ()?? 05/22/2022 01:20 Creatinine-Blood 0.9 mg/dL ()?? 05/22/2022 01:20 Estimated GFR Creatinine 93 ML/MIN/1.73 M2 ()?? 05/22/2022 01:20 Calcium 8.7 mg/dL ()?? 05/22/2022 01:20 Calcium, Ionized pH Corrected 1.17 mmol/L ()?? 05/20/2022 16:49 Magnesium 1.6 mg/dL ()?? 05/22/2022 01:20 Protein, Total 5.8 Gm/dL (Low)?? 05/22/2022 01:20 Albumin 3.7 Gm/dL ()?? 05/22/2022 01:20 AG Ratio 2.1 ()?? 05/20/2022 16:49 Alkaline Phosphatase 120 units/L ()?? 05/22/2022 01:20 Lipase 16 units/L ()?? 05/20/2022 16:49 AST (SGOT) 17 units/L ()?? 05/22/2022 01:20 ALT (SGPT) 20 units/L ()?? 05/22/2022 01:20 Bilirubin, Total 0.9 mg/dL ()?? 05/22/2022 01:20 Bilirubin, Direct 0.2 mg/dL ()?? 05/22/2022 01:20 Bilirubin, Indirect 0.7 mg/dL ()?? 05/22/2022 01:20 Lactate 1.3 mmol/L ()?? 05/20/2022 16:49 ?? COAG APTT 26.2 seconds ()?? 05/20/2022 16:49 ? 40??minutes spent on discharge * Leah Alves: PERFORM Event Display: Patient Education Leaflets Authored Date: [id number] Pain, Acute, Uncertain Cause ?? [id number] Dolor steven sin causa determinada Muchas afecciones pueden causar dolor, que pueden ser de muy leves a muy graves. A veces, sin embargo, el dolor viene y se va sin causa aparente. No pudimos determinar la causa exacta de ma dolor. En delilah momento, no hay indicios de noah enfermedad grave que lo cause. Es posible que deba hacerse otras pruebas para encontrar la causa. En muchos casos, delilah dolor desaparece solo. Cuidados en el hogar [place] los medicamentos linda le indicaron. Si no le recetaron tracey??n analg??sico, puede moses analg??sicos de venta vladislav linda el ibuprofeno o el paracetamol. ??selos seg??n se indique en la etiqueta.Hable con ma proveedor de atenci??n m??dica antes de moses analg??sicos de venta vladislav si tiene antecedentes de problemas en los ri??ones o el h??gado, sangrado en el est??karson o enfermedades del coraz??n. ?? Visita de seguimiento Ca el seguimiento con el proveedor de atenci??n m??dica o con nuestro personal anayeli linda se lo indiquen. ?? Cu??ndo buscar atenci??n m??dica Llame a ma proveedor de atenci??n m??dica en cualquiera de los siguientes casos: ??? Variaciones enel dolor ??? Sangrado que persiste o empeora ??? Aparecen s??ntomas nuevos ??? Fiebre de 100.4?F(38?C) o superior, o seg??n le indique ma proveedor de atenci??n m??dica ?? Last Reviewed Date: 2021 ?? [id number] [employer]. Todos los derechos reservados. Esta informaci??n no pretende sustituir la atenci??n m??dica profesional. S??lo ma m??dico puede diagnosticar y tratar un problema de anjana. ?? Portable XR Chest Views * [employer] , CIS S: TRANSCRIBE Chuy Bundy MD S: VERIFY Event Display: Result: Authored Date: Chest Portable Hx of Present Illness: Pt is coming from home by EMS for CP and abd pain for the last 2 days. C o of SOB. SPO2 95%. Cardiac HX; Reason: Other:; Chest Pain; Clinical Question(s): CHF COMPARISON: 06/21/2020 FINDINGS: LINES AND TUBES: None. LUNGS AND PLEURA: Clear lungs. Normal pulmonary vascularity. No pleural effusion. No pneumothorax. HEART, MEDIASTINUM AND JESUS: Heart is normal in size. Normal mediastinal and hilar contour. BONES AND SOFT TISSUES: No acute abnormality. IMPRESSION: No acute abnormality. WSN: [id number] Ordering Physician: Mecca Jackson Dictated By: Chuy Bundy MD Dictated Date/Time: 05/20/22 5:41 pm Reviewed By: Chuy Bundy MD Signed By: Chuy Bundy MD Signed Date/Time: 05/20/22 5:41 pm Transcribed By: CRISPIN Transcribed Date/Time: 05/20/22 5:40 pm Patient Care team information Care Team Personnel Name: Fahad EPPERSON, Leanne Hicks Position: [facility] RN Member Role: Primary Care Nurse Name: Sorin Moser RN Position: [facility] RN Member Role: Primary Care Nurse Name: Brandi Wei RN Position: [facility] RN Member Role: Primary Care Nurse Name: Ya Collier RN Position: [facility] PCO RN Member Role: Primary Care Nurse Name: Valentina Leiva RN Position: [facility] SN RN Member Role: Primary Care Nurse Name: Macarena Bedolla Position: [facility] Outreach Member Role: [employer] Consulting Physician Name: Abigail Nuno RN Position: [facility] Onco RN Member Role: Primary Care Nurse Name: Claire Trujillo MD Position: [facility] Primary Care Physician Member Role: PCP Address: Address: [address] [place] [id number]- Name: Heidi Dao Position: [facility] RN Member Role: Primary Care Nurse Name: Amado Lin MD Position: [facility] ED Medicine MD Member Role: ED Attending Physician Address: Address: [address] [place] [address]- Name: Mecca Jackson MD Position: [facility] Resident Member Role: ED Resident Address: Address: [address] [place] [address]- Name: Columba Collier Position: [facility] ED TA [facility] Member Role: Chief Green Officer Name: Brittany Hardwick RN Position: [facility] ED RN W/OE and Tasks Member Role: Patient Care Provider Care Team Related Persons Name: JOEL BRIZUELA Address: home [address] [place] [id number]
--- OUTSIDE RECORDS SUMMARY | 2023-12-10 00:49 | XMS_ITS | Continuity of Care Document ---
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 Name Role Phone Claire Trujillo MD Primary Care Physician Encounter [facility] Date(s): 11/05/23 - 12/05/[address] [address]- Allergies, Adverse Reactions, Alerts Substance Reaction Severity Status metFORMIN 1 GI symptoms Active 1GI intolreance Immunizations Given and Recorded Vaccine Date Status Refusal Reason zoster vaccine, inactivated 1 09/21/23 Recorded tetanus/diphtheria/pertussis, acel(Tdap) 2 09/21/23 Recorded tetanus/diphtheria/pertussis, acel(Tdap) 01/11/17 Given pneumococcal 20-valent conjugate vaccine 3 09/21/23 Recorded SARS-CoV-2 mRNA (uaaykpj-mwln-dyvfn) vax 03/03/22 Given SARS-CoV-2 mRNA (azmwlow-ceux-tqjrc) vax 08/27/21 Given SARS-CoV-2 (COVID-19) mRNA BNT-162b2 [...] 0 Refills, Maintenance, 11/27/22 11:10:00 EDT, Lotion, [facility], Partial fill upon patient request if the prescri... Start Date: 11/27/22 Status: Ordered Ankle foot orthostis Ankle foot orthostis, See Instructions, # 1 each, Refills 0, Tot. Refills 0, Maintenance, E11.40 needed for 99 weeks Fax to [facility], 09/24/23 17:56:00 EDT, Supply Start Date: 09/24/23 Status: Ordered aspirin 81 mg oral delayed release tablet 81 mg, 1, tablet, By Mouth, Daily, blood thinner/ hace la leonard avileza - para proteger el paty/ arterias tapadas en el paty, # 90 tablet, Refills 3, Tot. Refills 3, Maintenance, 09/09/23 9:59:00 EST, Route to Pharmacy [facility], [facility]... Start Date: 09/09/23 Stop Date: 09/03/24 [...] 0 Refills, Maintenance, 11/13/23 13:28:00 EDT, Tablet, [facility]/pharmacy #[id number], Partial fill upon patient request if the prescription is for a schedule II opioid drug., 165, cm,... Start Date: 11/13/23 Status: Ordered famotidine 10 mg oral tablet 1 tablet = 10 mg, By Mouth, 2 times a day, # 60 tablet, 1 Refills, Maintenance, 11/21/23 14:38:00 EDT, Tablet, [facility]/pharmacy #[id number], Partial fill upon patient request if the prescription is for a schedule II opioid drug., 165, cm, 11/21/23 14:15:00 EDT,... Start Date: 11/21/23 Status: Ordered finasteride 5 mg oral tablet = 5 mg, By Mouth, Daily, # 30 tablet, 2 Refills, Maintenance, 12/13/23 12:34:00 EDT, Tablet, [facility]/pharmacy #[id number], Partial fill upon patient request if the prescription is for a schedule II opioid drug., 165, cm, 11/21/23 14:15:00 EDT, Height, 77, kg, 0... Start Date: 12/13/23 Stop Date: 03/12/24 Status: Ordered finasteride 5 mg oral tablet = 5 mg, By Mouth, Daily, for 30 days, # 30 tablet, 0 Refills, Hard Stop 12/13/23 12:34:00 EDT, 11/13/23 12:34:00 EDT, Tablet, [facility]/pharmacy #[id number], Partial fill upon patient request if the prescriptionis for a schedule II opioid drug., 165, cm, ... Start Date: 11/13/23 Stop Date: 12/13/23 Status: Ordered Flomax 0.4 mg oral capsule 0.8 mg, 2, capsule, By Mouth, Daily, # 180 capsule, Refills 1, Tot. Refills 1, Maintenance, 10/03/23 13:04:00 EDT, Route to Pharmacy Electronically, [facility]., Partial fill upon patient request if [...] Sensors See Instructions, # 2 each, Refills 5, Tot. Refills 5, Maintenance, apply one sensor every 14 days;check glucose qid;E11.65, 11/27/23 21:25:00 EDT, Supply, 165, cm, 11/21/23 14:15:00 EDT, Height, 77, kg, 11/12/23 11:13:00 EDT, Dry Weight Start Date: 11/27/23 Status: Ordered Freestyle Lite Lancets See Instructions, [...] duration: 99 weeks. Fax to [facility]), 05/11/21 11:23:00 EDT, Supply Start Date: 05/11/21 Status: Ordered Home blood pressure monitor Home blood pressure monitor, See Instructions, # 1 each, Refills 0, Tot. Refills 0, Maintenance, ICD 10 I95.1; E11. 43 ALEIDA: 99 [facility] 05/25/22 12:53:00 EST, Supply Start Date: 05/25/22 [...] EST, Route to Pharmacy Electronically, [facility]., Partial fill upon patien... Start Date: 09/09/23 Stop Date: 09/03/24 Status: Ordered Jardiance 25 mg oral tablet 1 tablet = 25 mg, By Mouth, Daily in AM, # 90 tablet, 3 Refills, Maintenance, 09/09/23 9:59:00 EST,[facility]., Partial fill upon patient request if [...] 09/27/24 13:03:00 EDT, 10/03/23 13:03:00 EDT, Injection, [facility]., increase in dose, 166, cm, 09/24/23 15:24:00... Start Date: 10/03/23 Stop Date: 09/27/24 Status: Ordered Lantus Solostar Pen 100 units/mL subcutaneous solution = 23 units, Subcutaneous Injection, Daily at bedtime, Insulina de 24 horas., # 15 mL, 1 Refills, Maintenance, 04/26/24 16:08:00 EDT, Injection, [facility]., No insurance (Medicare not active until 06/15). Please dispense via 340B., 165,... Start Date: 04/26/24 Status: Ordered Lipitor 80 mg oral tablet 1 tablet = 80 mg, By Mouth, Daily at bedtime, para colesterol / proteger el paty/ arterias tapadas en el paty, # 90 tablet, 3 Refills, Maintenance, 09/09/23 9:59:00 EST, Tablet, [facility] Partial fill upon patient request, 166,... Start [...] 09/09/23 9:57:00 EST, [facility] Start Date: 09/09/23 Stop Date: 09/03/24 Status: Ordered MiraLax oral powder for reconstitution = 17 Gm, By Mouth, Daily, for 30 days, # 510 Gm, 0 Refills, Acute 12/13/23 13:28:00 EDT, 11/13/23 13:28:00 EDT, REC Powder, [facility]/pharmacy #[id number], Partial fill upon patient request if the prescription is for a schedule II opioid drug., 17 Gm By Mouth Martha... Start Date: 11/13/23 Stop Date: 12/13/23 Status: Ordered morphine 15 mg/8 to 12 hr oral tablet, extended release 1 tablet = 15 mg, By Mouth, Every 12 hours, # 56 tablet, 0 Refills, Maintenance, 11/21/23 17:14:00 EDT, ER Tablet, [facility]/pharmacy #[id number], Partial fill upon patient request if the prescription is for a schedule II opioid drug. in addition to oxycodone ; o... Start Date: 11/21/23 Stop Date: 12/19/23 Status: Ordered nortriptyline 10 mg oral capsule [...] Acute 12/19/23 17:14:00 EDT, 11/21/23 17:14:00 EDT, [facility]/pharmacy #[id number], Partial fill upon patient request ifthe prescription is for a schedule II opioid drug.... Start Date: 11/21/23 Stop Date: 12/19/23 Status: Ordered powerwheel chair powerwheel chair, See Instructions, # 1 each, Refills 0, Tot. 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 99 weeks fax to [facility], 09/24/23 17:56:00 EDT, Supply Start Date: [...] [facility]. Start Date: 11/21/21 Status: Ordered senna - oral tablet 2 tablet, By Mouth, Daily at bedtime, PRN for constipation, for 30 days, # 60 tablet, 0 Refills, Acute 12/13/23 13:29:00 EDT, 11/13/23 13:29:00 EDT, Tablet, [facility]/pharmacy #[id number], Partial fill upon patient request if the prescription is for a schedule II... Start Date: 11/13/23 Stop Date: 12/13/23 Status: Ordered Senna 8.6 mg oral tablet 17.2 mg, 2, tablet, By Mouth, Daily, for 30 days, # 60 tablet, Refills 0, Tot. Refills 0, Acute, 12/13/23 12:34:00 EDT, 11/13/23 12:34:00 EDT, Route to Pharmacy Electronically, [facility]/pharmacy #[id number] Tablet, Partial fill upon patient request [...] Team Personnel Name: Sorin Moser RN Position: [facility] RN Member Role: Primary Care Nurse Name: Ya Wislon RN Position: [facility] RN Member Role: Primary Care Nurse Name: Brandi Wei RN Position: [facility] RN Member Role: Primary Care Nurse Name: Valentina Leiva RN Position: [facility] SN RN Member Role: Primary Care Nurse Name: Macarena Bedolla Position: [facility] Outreach Member Role: Lifetime Consulting Physician Name: Abigail Yang RN Position: [facility] Onco RN Member Role: Primary Care Nurse Name: Claire Trujillo MD Position: [facility] Physician - Primary Care Member Role: PCP Address: Address: [address] [place] [address]- Name: Heidi Dao Position: [facility] RN Member Role: Primary Care Nurse Care Team Related Persons Name: JOEL BRIZUELA Address: home [address] [place] [id number]
--- OUTSIDE RECORDS SUMMARY | 2023-12-10 00:49 | XMS_ITS | Continuity of Care Document ---
Author Organization [facility] Address [address] [place] [address]- Care Team Providers Care Salesforce Administrator Name Role Phone Claire Trujillo MD Primary Care Physician Encounter [facility] Date(s): 08/11/20 - 09/10/[address] [address] Allergies, Adverse Reactions, [...] 5 Refills, Maintenance, 08/18/20 16:04:00 EST, Tablet, [facility], 1 tablet By Mouth 2 times a day, 163, cm, 04/21/20 22:04:00 EDT, Height, 91, kg,04/19/20 23:16:00 EDT, Dry Weight Start Date: 08/18/20 Status: Ordered FLUoxetine 20 mg oral capsule 1, capsule, By Mouth, Daily, # 90 capsule, Refills 3, Tot. Refills 3, Maintenance, 11/05/19 18:38:00 EDT, Route to Pharmacy Electronically, [facility], 165, cm, 07/21/19 14:31:00 [...] Maintenance, 08/18/2115:13:00 EST, Route to Pharmacy Electronically, [facility], 163, cm, 04/21/20 22:04:00 EDT, Height, 91, kg, 04/19/20 23:16:00 EDT, Dry Weight Start Date: 08/18/20 Status: Ordered Humalog 100 u/ml subcutaneous injection See Instructions, take before meals (three times a day) per sliding scale 4 units if over 120; 6 at200; 8 at 300; 12 if 400 max 60 units/ day, # 6 mL, 2 Refills, Maintenance, 07/19/20 13:40:00 EST, [facility], d/c Ademlog;, 163, cm, 04/21/20... Start Date: 07/19/20 Status: Ordered isosorbide mononitrate 30 mg oral tablet, extended release 1 tablet = 30 mg, By Mouth, Daily in AM, # 30 tablet, 11 Refills, Maintenance, 02/23/20 12:51:00 EDT, [facility], 165, cm, 01/12/20 16:41:00 EDT, Height, 91, kg, 06/19/19 16:55:00 EST, Dry Weight Start Date: 02/23/20 Stop Date: 02/17/21 Status: Ordered Lantus Solostar Pen 100 units/mL subcutaneous solution = 15 units, Subcutaneous Injection, Daily at bedtime, # 9 mL, 2 Refills, Maintenance, 05/07/20 13:08:00 EDT, Injection, [facility], 163, cm, 04/21/20 22:04:00 EDT, Height, 91, kg, 04/19/20 23:16:00 EDT, Dry Weight Start Date: 05/07/20 Stop Date: 08/05/20 Status: Ordered Lipitor 80 mg oral tablet 1 tablet = 80 mg, By Mouth, Daily at bedtime, # 90 tablet, 3 Refills, Maintenance, 06/09/20 13:06:00 EST, Tablet, [facility], Partial fill upon patient request, 163, cm, 04/21/20 22:04:00 EDT, Height, 91, kg, 04/19/20 23:16:00 EDT, Dry Weight Start Date: 06/09/20 Stop Date: 06/04/21 Status: Ordered lisinopril 10 mg oral tablet 1, tablet, By Mouth, Daily, # 90 tablet, Refills 3, Tot. Refills 3, Maintenance, 11/05/19 18:37:00 EDT, Route to Pharmacy Electronically, [facility], 165, cm, 07/21/19 14:31:00 EST, Height, [...] weight: 91kg, 08/26/20 16:56:00 EST, sent to [facility]. Start Date: 08/26/20 Status: Ordered shower bars [...] 08/04/20 14:13:00 EST, Route to Pharmacy Electronically, [facility], 163, cm, 04/21/20 22:04:00 EDT, Height, [...] [facility]N-[facility]CP C are Management Bre Skinner, CC [phone](Confirmed) 02/02/19 Active Thrombocytopenia(Confirmed) Active Type 1 diabetes mellitus(Confirmed) Active Social History Social History Type Response Smoking Status Never (less than 100 in lifetime) entered on: 06/19/19 Sex
--- OUTSIDE RECORDS SUMMARY | 2023-12-10 00:49 | XMS_ITS | Continuity of Care Document ---
Author Organization [facility] Address [address] [place] [address]- Care Team Providers Care Aircraft Worker Name Role Phone Claire Trujillo MD Primary Care Physician Encounter [facility] Date(s): 06/29/23 - 07/29/[address] [address]- Allergies, Adverse Reactions, Alerts Substance Reaction Severity Status metFORMIN 1 GI symptoms Active 1GI intolreance Immunizations Given and Recorded Vaccine Date Status Refusal Reason SARS-CoV-2 mRNA (owniwdg-lrys-nnpzc) vax 03/03/22 Given SARS-CoV-2 mRNA (edjsrhj-zwjd-ejbex) vax 08/27/21 Given SARS-CoV-2 (COVID-19) mRNA BNT-162b2 [...] 0 Refills, Maintenance, 11/27/22 11:10:00 EDT, [facility] fill upon patient request [...] 05/02/23 16:08:00 EDT, Route to Pharmacy Electronically, [facility], Partial fill upon patient request if the pr... Start Date: 05/02/23 Stop Date: 07/01/23 Status: Ordered Flomax 0.4 mg oral capsule 0.8 mg, 2, capsule, By Mouth, Daily, # 180 capsule, Refills 1, Tot. Refills 1, Maintenance, 07/19/23 13:01:00 EST, Route to Pharmacy Electronically, [facility]/pharmacy #[id number], Partial fill upon patient request if the [...] E10.42 duration: 99 weeks. Fax to [facility], 05/11/21 11:23:00 EDT, Supply Start Date: [...] 15 mL, 1 Refills, 05/15/23 10:16:00 EDT, [facility], No [facility]ur... Start Date: 05/15/23 Status: Ordered isosorbide mononitrate 30 mg oral tablet, extended release 30 mg, 1, tablet, By Mouth, Daily at bedtime, Para el paty. Noelle antes de acostarse., # 30 tablet, Refills 3, Tot. Refills 3, Maintenance, 07/19/23 13:01:00 EST, Route to Pharmacy Electronically, [facility]/pharmacy #[id number], Partial fill upon patient reque... Start Date: 07/19/23 Stop Date: 11/16/23 Status: Ordered Jardiance 25 mg oral tablet 1 tablet = 25 mg, By Mouth, Daily in AM, # 30 tablet, 5 Refills, Maintenance, 07/19/23 13:00:00 EST, [facility]/pharmacy #[id number], [...] 07/13/24 13:01:00 EST, 07/19/23 13:01:00 EST, Injection, [facility]/pharmacy #[id number], increase in dose, 165, cm, 04/16/23 8:59:00 EDT, Heig... Start Date: 07/19/23 Stop Date: 07/13/24 Status: Ordered Lantus Solostar Pen 100 units/mL subcutaneous solution = 23 units, Subcutaneous Injection, Daily at bedtime, Insulina de 24 horas., # 15 mL, 1 Refills, Maintenance, 04/26/24 16:08:00 EDT, Injection, [facility], No insurance (Medicare not active until [...] 07/19/23 13:01:00 EST, Route to Pharmacy Electronically, [facility]/pharmacy #[id number],... Start Date: 07/19/23 Stop Date: 07/13/24 Status: Ordered morphine 15 mg/8 to 12 hr oral tablet, extended release 1 tablet = 15 mg, By Mouth, Every 12 hours, # 56 tablet, 0 Refills, Maintenance, 07/05/23 17:04:00 EST, ER Tablet, [facility]/pharmacy #[id number], Partial fill upon patient request if the prescription is for a schedule II opioid drug. in addition to oxycodone ; ;... Start Date: 07/05/23 Stop Date: 08/02/23 Status: Ordered nortriptyline 10 mg oral capsule See Instructions, GEORGE 1 [address]S[place]A CADA MIUGEL A [facility] [facility]. *NUEVO MEDICAMENTO [...] Acute 08/02/23 17:05:00 EST, 07/05/23 17:05:00 EST, [facility]/pharmacy #[id number], [...] weight: 93kg, 11/21/21 16:40:00 EDT, sent to [facility] Start Date: 11/21/21 Status: Ordered [...] Team Personnel Name: Sorin Moser RN Position: [facility] RN Member Role: Primary Care Nurse Name: Ya Wilson RN Position: [facility] RN Member Role: Primary Care Nurse Name: Brandi Wei RN Position: [facility] RN [...] Care Member Role: PCP Address: Address: [address] [place] [address] Name: Heidi Dao Position: [facility] RN Member Role: Primary Care Nurse Care Team Related Persons Name: JOEL BRIZUELA Address: home [address] [place] [address], [place] [address]
--- OUTSIDE RECORDS SUMMARY | 2023-12-10 00:49 | XMS_ITS | Continuity of Care Document ---
Author Organization [facility] Address [address] [place] [address]- Care Team Providers Care Merchandise Displayer Name Role Phone Claire Trujillo MD Primary Care Physician [phone] Encounter [facility] Date(s): 09/26/23 - 10/26/[address] [address] Allergies, Adverse Reactions, Alerts Substance Reaction Severity Status metFORMIN 1 GI symptoms Active 1GI intolreance Immunizations Given and Recorded Vaccine Date Status Refusal Reason zoster vaccine, inactivated 1 09/21/23 Recorded tetanus/diphtheria/pertussis, acel(Tdap) 2 09/21/23 Recorded tetanus/diphtheria/pertussis, acel(Tdap) 01/11/17 Given pneumococcal 20-valent conjugate vaccine 3 09/21/23 Recorded SARS-CoV-2 mRNA (gfuqjeh-bnht-bglln) vax 03/03/22 Given SARS-CoV-2 mRNA (pxueqkt-ovgz-cytyt) vax 08/27/21 Given SARS-CoV-2 (COVID-19) mRNA BNT-162b2 [...] 0 Refills, Maintenance, 11/27/22 11:10:00 EDT, Lotion, [facility], Partial fill upon patient request if the prescri... Start Date: 11/27/22 Status: Ordered Ankle foot orthostis Ankle foot orthostis, See Instructions, # 1 each, Refills 0, Tot. Refills 0, Maintenance, E11.40 needed for 99 weeks Fax to [facility], 09/24/23 17:56:00 EDT, Supply Start Date: 09/24/23 Status: Ordered aspirin 81 mg oral delayed release tablet 81 mg, 1, tablet, By Mouth, Daily, blood thinner/ hace la leonard avileza - para proteger el paty/ arterias tapadas en el paty, # 90 tablet, Refills 3, Tot. Refills 3, Maintenance, 09/09/23 9:59:00 EST, Route to Pharmacy Electronically, [facility]... Start Date: 09/09/23 Stop Date: 09/03/24 [...] 05/02/23 16:08:00 EDT, Route to Pharmacy Electronically, [facility], Partial fill upon patient request if the pr... Start Date: 05/02/23 Stop Date: 07/01/23 Status: Ordered Flomax 0.4 mg oral capsule 0.8 mg, 2, capsule, By Mouth, Daily, # 180 capsule, Refills 1, Tot. Refills 1, Maintenance, 10/03/23 13:04:00 EDT, [facility], [facility] fill upon [...] E10.42 duration: 99 weeks. Fax to [facility] ([facility], 05/11/21 11:23:00 EDT, Supply Start Date: 05/11/21 Status: Ordered Home blood pressure monitor Home blood pressure monitor, See Instructions, # 1 each, Refills 0, Tot. Refills 0, Maintenance, ICD 10 I95.1; E11. 43 ALEIDA: 99 [facility] 12:53:00 EST, Supply Start Date: [...] 09/09/23 9:57:00 EST, Route to Pharmacy Electronically, [facility], Partial fill upon patien... Start Date: 09/09/23 Stop Date: 09/03/24 Status: Ordered Jardiance 25 mg oral tablet 1 tablet = 25 mg, By Mouth, Daily in AM, # 90 tablet, 3 Refills, Maintenance, 09/09/23 9:59:00 EST,[facility], Partial fill upon patient [...] 09/27/24 13:03:00 EDT, 10/03/23 13:03:00 EDT, Injection, [facility]., increase in dose, 166, cm, 09/24/23 15:24:00... Start Date: 10/03/23 Stop Date: 09/27/24 Status: Ordered Lantus Solostar Pen 100 units/mL subcutaneous solution = 23 units, Subcutaneous Injection, Daily at bedtime, Insulina de 24 horas., # 15 mL, 1 Refills, Maintenance, 04/26/24 16:08:00 EDT, Injection, [facility], No insurance (Medicare not active until 06/15). Please dispense via 340B., 165,... Start Date: 04/26/24 Status: Ordered Lipitor 80 mg oral tablet 1 tablet = 80 mg, By Mouth, Daily at bedtime, para colesterol / proteger el paty/ arterias tapadas en el paty, # 90 tablet, 3 Refills, Maintenance, 09/09/23 9:59:00 EST, Tablet, [facility] Partial fill upon patient request, 166,... [...] 09/09/23 9:57:00 EST, Route to Pharmacy Electronically, [facility] Start Date: 09/09/23 Stop Date: 09/03/24 Status: Ordered morphine 15 mg/8 to 12 hr oral tablet, extended release 1 tablet = 15 mg, By Mouth, Every 12 hours, # 56 tablet, 0 Refills, Maintenance, 10/25/23 21:13:00 EDT, ER Tablet, [facility]/pharmacy #[id number], Partial fill upon [...] Acute 11/22/23 21:13:00 EDT, 10/25/23 21:13:00 EDT, [facility]/pharmacy #[id number], Partial fill upon patient request ifthe prescription is for a schedule II opioid drug.... Start Date: 10/25/23 Stop Date: 11/22/23 Status: Ordered powerwheel chair powerwheel chair, See Instructions, # 1 each, Refills 0, Tot. 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 99 weeks fax to [facility], 09/24/23 17:56:00 EDT, Supply Start [...] 93kg, 11/21/21 16:40:00 EDT, sent to [facility]. Start Date: 11/21/21 Status: Ordered [...] Team Personnel Name: Sorin Moser RN Position: [facility] RN Member Role: Primary Care Nurse Name: Ya Wilson RN Position: [facility] RN Member Role: Primary Care Nurse Name: Brandi Wei RN Position: [facility] RN Member Role: Primary Care Nurse Name: Valentina Leiva RN Position: [facility] SN RN Member Role: Primary Care Nurse Name: Macarena Bedolla Position: [facility] Outreach Member Role: Lifetime Consulting Physician Name: Abigail Yang RN Position: [facility] Onco RN Member Role: Primary Care Nurse Name: Claire Trujillo MD Position: [facility] Physician - Primary Care Member Role: PCP Address: Address: [address] [place] [id number]- Name: Heidi Dao Position: [facility] RN Member Role: Primary Care Nurse Care Team Related Persons Name: JOEL BRIZUELA Address: [address] [address]
--- OUTSIDE RECORDS SUMMARY | 2023-12-10 00:49 | XMS_ITS | Continuity of Care Document ---
Author Organization [facility] Address [address] [place] [address]- Care Team Providers Care Glost Tile Shader Name Role Phone Claire Trujillo MD Primary Care Physician [phone] Encounter [facility] [id number] Date(s): 06/02/20 - 07/02/[address] [address] Attending Physician: AdmUche sheth Admitting Physician: [...] 1 Refills, Soft Stop, 06/30/20 18:54:00 EST, [facility], 163, cm, 04/21/20 22:04:00 EDT, [...] 11/05/19 18:38:00 EDT, Route to Pharmacy Electronically, [facility], 165, cm, 07/21/19 14:31:00 EST, [...] N-CP C are Management Bre Skinner, CC [phone](Confirmed) 02/02/19 Active Thrombocytopenia(Confirmed) Active Type 1 diabetes mellitus(Confirmed) Active Social History Social History Type Response Smoking Status Never (less than 100 in lifetime) entered on: 06/19/19 Sex
--- OUTSIDE RECORDS SUMMARY | 2023-12-10 00:49 | XMS_ITS | Continuity of Care Document ---
Author Organization [facility] Address [address] [place] [address]- Care Team Providers Care Neighborhood Conservation Officer Name Role Phone Claire Trujillo MD Primary Care Physician [phone] Encounter [facility] Date(s): 03/14/23 - 04/13/23 [facility] [address], [place] [address] Attending Physician: Uche Urena Admitting Physician: Uche Urena Referring Physician: AdmtrUche Allergies, Adverse Reactions, Alerts Substance Reaction Severity Status metFORMIN 1 GI symptoms Active 1GI intolreance Immunizations Given and Recorded Vaccine Date Status Refusal Reason SARS-CoV-2 mRNA (lstlyja-fgnc-rflqz) vax 03/03/22 Given SARS-CoV-2 mRNA (pcomtcc-blgm-gdjkg) vax 08/27/21 Given SARS-CoV-2 (COVID-19) mRNA BNT-162b2 [...] 0 Refills, Maintenance, 11/27/22 11:10:00 EDT, [facility] upon patient request if the prescri... Start Date: 11/27/22 Status: Ordered aspirin 81 mg oral delayed release tablet 81 mg, 1, tablet, By Mouth, Daily, blood thinner/ hace la leonard mas cullen - para proteger el paty/ arterias tapadas en el paty, # 90 tablet, Refills 3, Tot. Refills 3, Maintenance, 03/31/23 11:15:00 EDT, Route to Pharmacy Electronically, [facility] Start Date: 03/31/23 Stop Date: 03/25/24 Status: [...] Moderate, Apply to legs for diabetic neuropathy. Bengali sig, # 60 Gm, 1 Refills, Maintenance, [...] 01/04/23 15:22:00 EDT, Route to Pharmacy Electronically, [facility], Partial fill upon patient request if the pre... Start Date: 01/04/23 Stop Date: 03/05/23 Status: Ordered Flomax 0.4 mg oral capsule 0.8 mg, 2, capsule, By Mouth, Daily, # 180 capsule, Refills 1, Tot. Refills 1, Maintenance, 03/31/23 11:17:00 EDT, [facility] to Pharmacy Electronically, [facility] [...] duration: 99 weeks. Fax to [facility], 05/11/21 11:23:00 EDT, Supply Start [...] 15 mL, 11 Refills, 06/01/22 10:46:00 EST, [facility], cm... Start Date: 06/01/22 Status: Ordered isosorbide mononitrate 30 mg oral tablet, extended release 30 mg, 1, tablet, By Mouth, Daily at bedtime, Para el paty. Noelle antes de acostarse., # 30 tablet, Refills 3, Tot. Refills 3, Maintenance, 03/31/23 11:17:00 EDT, Route to Pharmacy Electronically, [facility], Partial fill upon patie... Start Date: 03/31/23 Stop Date: 07/29/23 Status: Ordered Jardiance 25 mg oral tablet 1 tablet = 25 mg, By Mouth, Daily in AM, # 30 tablet, 5 Refills, Maintenance, 11/08/22 15:44:00 EDT, [facility], Partial [...] 11 Refills, Maintenance, 01/02/23 13:26:00 EDT, Injection, [facility], increase in dose, 165, cm,01/02/23 13:02:00 EDT, Height, 84.2, kg, 05/21/22 0... Start Date: 01/02/23 Stop Date: 12/28/23 Status: Ordered Lipitor 80 mg oral tablet 1 tablet = 80 mg, By Mouth, Daily at bedtime, para colesterol / proteger el paty/ arterias tapadas en el paty, # 90 tablet, 3 Refills, Maintenance, 03/31/23 11:15:00 EDT, Tablet, [facility], Partial fill upon patient request, 165... Start [...] 03/31/23 11:15:00 EDT, Route to Pharmacy Electronically, [facility]... Start Date: 03/31/23 Stop Date: [...] 04/09/23 12:49:00 EDT, [facility] upon patient... Start Date: [...] weight: 93kg, 11/21/21 16:40:00 EDT, sent to [facility]. Start Date: 11/21/21 Status: Ordered shower [...] Team Personnel Name: Sorin Moser RN Position: [facility] RN Member Role: Primary Care Nurse Name: Brandi Wei RN Position: [facility] RN Member Role: Primary Care Nurse Name: Ya Collier RN Position: [facility] RN Member Role: Primary Care Nurse Name: Valentina Leiva RN Position: [facility] SN RN Member Role: Primary Care Nurse Name: Macarena Bedolla Position: [facility] Outreach Member Role: Lifetime Consulting Physician Name: Abigail Nuno RN Position: [facility] Onco RN Member Role: Primary Care Nurse Name: Claire Trujillo MD Position: [facility] Physician - Primary Care Member Role: PCP Address: Address: [address] [place] [address]- Name: Heidi Dao Position: [facility] RN Member Role: Primary Care Nurse Care Team Related Persons Name: JOEL BRIZUELA Address: [address] [address]
--- OUTSIDE RECORDS SUMMARY | 2023-12-10 00:49 | XMS_ITS | Continuity of Care Document ---
Author Organization [facility] Address [address] [place] [address]- Care Team Providers Care Dumpster Driver Name Role Phone Claire Trujillo MD Primary Care Physician [place] [facility] [place] [id number] Date(s): 07/06/22 - 08/05/[address] [address]- Attending Physician: Uche Urena Admitting Physician: Uche Urena Referring Physician: AdmtrUche Allergies, Adverse Reactions, Alerts Substance Reaction Severity Status metFORMIN 1 GI symptoms Active 1GI intolreance Immunizations Given and Recorded Vaccine Date Status Refusal Reason SARS-CoV-2 mRNA (njlordn-kogs-swytb) vax 03/03/22 Given SARS-CoV-2 mRNA (oalkpfk-ooqy-lsbhb) vax 08/27/21 Given SARS-CoV-2 (COVID-19) mRNA BNT-162b2 [...] Moderate, Apply to legs for diabetic neuropathy. Taiwanese sig, # 60 Gm, 1 Refills, Maintenance, 06/06/22 9:44:00 EST, Cream, [facility], Partial fill [...] E10.42 duration: 99 weeks. Fax to [facility], 05/11/21 11:23:00 EDT, Supply Start Date: 05/11/21 Status: Ordered Home blood pressure monitor Home blood pressure monitor, See Instructions, # 1 each, Refills 0, Tot. Refills 0, Maintenance, ICD 10 I95.1; E11. 43 ALEIDA: 99 [facility] rx to [facility], 05/25/22 12:53:00 EST, Supply Start Date: 05/25/22 Status: Ordered HumaLOG KwikPen 100 units/mL injectable solution See Instructions, Mealtime insulin; dose according to finger stick before meals FS 100-199: 5 unitsFS: 200-249: 6 units FS 250-299: 7 units FS above 300: 8 units, # 15 mL, 11 Refills, 06/01/22 10:46:00 EST, [facility]., 165, cm... Start Date: 06/01/22 Status: Ordered Jardiance 25 mg oral tablet 1 tablet = 25 mg, By Mouth, Daily in AM, # 30 tablet, 5 Refills, Maintenance, 06/01/22 10:45:00 EST, [facility], Partial fill upon patient request if the prescription is for a schedule II opioid drug., 165, cm, 06/01/22 10:18:00 EST, H... Start Date: 06/01/22 Stop Date: 11/28/22 Status: Ordered Lantus Solostar Pen 100 units/mL subcutaneous solution = 12 units, Subcutaneous Injection, Daily at bedtime, Insulina de 24 horas., # 6 mL, 11 Refills, Maintenance, 06/01/22 10:46:00 EST, Injection, [facility]., 165, cm, 06/01/22 10:18:00 EST, Height, 84.2, kg, 05/21/22 0:51:00 EDT, Dry Weight Start Date: 06/01/22 Stop Date: 05/27/23 Status: Ordered Lipitor 80 mg oral tablet 1 tablet = 80 mg, By Mouth, Daily at bedtime, para colesterol / proteger el paty/ arterias tapadas en el paty, # 30 tablet, 11 Refills, Maintenance, 05/04/22 10:23:00 EDT, [facility]t, [facility], [facility] fill upon [...] 05/04/22 10:27:00 EDT, Route to Pharmacy Electronically, [facility]... Start Date: 05/04/22 Status: Ordered [...] Type II DM, ICD10 E11.65. Fax to [address] [place] [address], 07/07/22 11:52:00 EST, Supply Start Date: 07/07/22 [...] weight: 93kg, 11/21/21 16:40:00 EDT, sent to [facility]. Start Date: 11/21/21 Status: Ordered shower bars [...] recurrent falls Confirmed Active Care coordination [facility]-CP Care Management Bre Skinner, CC [phone] Confirmed 02/02/19 Active Thrombocytopenia Confirmed Active TIA (transient ischemic attack) Confirmed Active T2DM (type 2 diabetes mellitus) Confirmed Active Social History Social History Type Response Smoking Status Never (less than 100 in lifetime) entered on: 06/19/19 Sex Note * Yuridia Zepeda RN: PERFORM, SIGN, VERIFY Event Display: Case Management Discharge Plan Authored Date: [id number] Patient: PARIS ROJO Age: 59 years Sex: Male : 1960 Associated Diagnoses: None Author: Yuridia Zepeda RN Unable to reach pt for follow up call. Call placed to Pt. [phone] via Taiwanese language line/[email or web address]/[id number] l/m on / requesting return call to [facility] to schedule f/u appt. Pt. to be scheduled for IPF as noted in [facility] D/C instructions 06/21/19: Follow-Up InstructionsFollow Up With: Where: When: Claire Trujillo Within 1 to 2 weeks * Yuridia Zepeda RN: PERFORM, SIGN, VERIFY Event Display: Case Management Discharge Plan Authored Date: [id number] Patient: PARIS ROJO Age: 58 years Sex: Male : 1960 Associated Diagnoses: None Author: Yuridia Zepeda RN Unable to reach pt for follow up call. Call placed to Pt. [phone] via Taiwanese language line/Finn [phone] RNCM was informed that Pt. is not at home presently. RNCM l/m with Pt. spouse[facility]Joel [facility] informing of appt. 02/07/19 10:20am at [facility]. * Yuridia Zepeda RN: PERFORM, SIGN, VERIFY Event Display: Case Management Discharge Plan Authored Date: [id number] Patient: PARIS ROJO Age: 58 years Sex: Male : 1960 Associated Diagnoses: None Author: Yuridia Zepeda RN Unable to reach pt for follow up call. Call placed to Pt. [phone] via Taiwanese Language line/Zulema [phone] l/m on v/m requesting returncall to [facility] to schedule appt. (IPF appt. to be scheduled when call is returned). Patient Care team information Care Team Personnel Name: Sorin Moser RN Position: [facility] RN Member Role: Primary Care Nurse Name: Brandi Wei RN Position: [facility] RN Member Role: Primary Care Nurse Name: Ya Collier RN Position: [facility] PCO RN Member Role: Primary Care Nurse Name: Valentina Leiva RN Position: [facility] SN RN Member Role: Primary Care Nurse Name: Macarena Bedolla Position: [facility] Outreach Member Role: Lifetime Consulting Physician Name: Abigail Nuno RN Position: [facility] Onco RN Member Role: Primary Care Nurse Name: Claire Trujillo MD Position: [facility] Primary Care Physician Member Role: PCP Address: Address: [address] [place] [address] Name: Heidi Dao Position: [facility] RN Member Role: Primary Care Nurse Care Team Related Persons Name: JOEL BRIZUELA Address: home [address] [place] [address]
--- OUTSIDE RECORDS SUMMARY | 2023-12-10 00:49 | XMS_ITS | Continuity of Care Document ---
Author Organization [facility] Address [address] [place] [address]- Care Team Providers Care Manager Terminal Name Role Phone Claire Trujillo MD Primary Care Physician [place] [facility] [id number] Date(s): 08/25/19 - 09/04/[address] [address]- [facility] Attending Physician: Uche Urena Admitting Physician: Uche [...] 1 Refills, Maintenance, 08/20/19 16:14:00 EST, Tablet, [facility], 1 tablet By [...] [facility] Start Date: 03/18/19 Status: Ordered gabapentin 300 mg oral capsule 300 mg, 1, capsule, By Mouth, 2 times a day, # 60 capsule, Refills 11, Tot. Refills 11, Maintenance, 07/28/19 15:59:00 EST, Route to Pharmacy Electronically, [facility], 165, cm, 07/21/19 14:31:00 EST, Height, [...] 08/28/19 12:08:00 EST, Route to Pharmacy Electronically, [facility], 165, cm, 07/21/19 14:31:00 EST, Height, 91, kg, 06/19/19 16:55:00 EST, Dry Weight Start Date: 08/28/19 Stop Date: 02/24/20 Status: Ordered Problem List Condition Effective Dates Status Health Status Inform ant Diabetic peripheral neuropathy(Confirmed) Active Diabetic nephropathy(Confirmed) Active Dysphagia(Confirmed) Active Hallucinations(Confirmed) Active Hypertension(Confirmed) Active Anxiety and depression(Confirmed) Active Care coordination N-CP C are Management Bre Skinner, CC [phone](Confirmed) 02/02/19 Active Thrombocytopenia(Confirmed) Active Type 1 diabetes mellitus(Confirmed) Active Social History Social History Type Response Smoking Status Never (less than 100 in lifetime) entered on: 06/19/19 Sex
--- OUTSIDE RECORDS SUMMARY | 2023-12-10 00:49 | XMS_ITS | Continuity of Care Document ---
Author Organization [facility] Address [address] [place] [address]- Care Team Providers Care Vending Machine Collector Name Role Phone Claire Trujillo MD Primary Care Physician [place] [facility] [place] [facility] [id number] Date(s): 07/30/20 - 08/29/[address] [address]- Attending Physician: Admdomenic, Uche Admitting Physician: AdmtrUche Referring Physician: Admtr, Ar8 [...] 1 Refills, Soft Stop, 06/30/20 18:54:00 EST, [facility], 163, cm, 04/21/20 22:04:00 EDT, [...] Refills, Maintenance, 08/18/20 16:04:00 EST, Tablet, [facility], 1 tablet By Mouth 2 times a day, 163, cm, 04/21/20 22:04:00 EDT, Height, 91, kg,04/19/20 23:16:00 EDT, Dry Weight Start Date: 08/18/20 Status: Ordered FLUoxetine 20 mg oral capsule 1, capsule, By Mouth, Daily, # 90 capsule, Refills 3, Tot. Refills 3, Maintenance, 11/05/19 18:38:00 EDT, Route to Pharmacy Electronically, [facility], 165, cm, 07/21/19 14:31:00 EST, [...] 11, USE DIRECTED FOR TYPE 1 DIABETES, [facility] Start Date: 03/18/19 Status: Ordered Freestyle [...] Maintenance, 08/18/2115:13:00 EST, Route to Pharmacy Electronically, [facility], 163, cm, 04/21/20 22:04:00 EDT, Height, [...] 3 Refills, Maintenance, 06/09/20 13:06:00 EST, Tablet, [facility], Partial fill upon patient request, 163, [...] 91kg, 08/26/20 16:56:00 EST[facility] Start Date: 08/26/20 Status: Ordered shower bars [...] 08/04/20 14:13:00 EST, Route to Pharmacy Electronically, [facility], 163, cm, 04/21/20 22:04:00 EDT, Height, [...] [facility] C are Management Bre Skinner, CC [phone](Confirmed) 02/02/19 Active Thrombocytopenia(Confirmed) Active Type 1 diabetes mellitus(Confirmed) Active Social History Social History Type Response Smoking Status Never (less than 100 in lifetime) entered on: 06/19/19 Sex
--- OUTSIDE RECORDS SUMMARY | 2023-12-10 00:49 | XMS_ITS | Continuity of Care Document ---
Author Organization [facility] Address [address] [place] [address]- Care Team Providers Care Fire Safety Manager Name Role Phone Claire Trujillo MD Primary Care Physician [phone] Encounter [facility] [place] Date(s): 08/06/23 - 09/05/[address] [address]- Allergies, Adverse Reactions, Alerts Substance Reaction Severity Status metFORMIN 1 GI symptoms Active 1GI intolreance Immunizations Given and Recorded Vaccine Date Status Refusal Reason SARS-CoV-2 mRNA (mjvdkyg-ucxo-cujkz) vax 03/03/22 Given SARS-CoV-2 mRNA (jbafmga-lzgn-yersk) vax 08/27/21 Given SARS-CoV-2 (COVID-19) mRNA BNT-162b2 [...] Refills, Maintenance, 11/27/22 11:10:00 EDT, Lotion, [facility], [facility] fill [...] 16:08:00 EDT, Route to Pharmacy Electronically, [facility], Partial fill upon patient request if the pr... Start Date: 05/02/23 Stop Date: 07/01/23 Status: Ordered Flomax 0.4 mg oral capsule 0.8 mg, 2, capsule, By Mouth, Daily, # 180 capsule, Refills 1, Tot. Refills 1, Maintenance, 07/19/23 13:01:00 EST, Route to Pharmacy Electronically, [facility]/pharmacy #[id number], Partial fill upon patient request if the [...] E10.42 duration: 99 weeks. Fax to [facility], 05/11/21 11:23:00 EDT, Supply Start Date: 05/11/21 Status: Ordered Home blood pressure monitor Home blood pressure monitor, See Instructions, # 1 each, Refills 0, Tot. Refills 0, Maintenance, ICD 10 I95.1; E11. 43 ALEIDA: [facility] 05/25/22 12:53:00 EST, Supply Start Date: 05/25/22 Status: Ordered HumaLOG KwikPen 100 units/mL injectable solution See Instructions, Mealtime insulin; dose according to finger stick before meals FS 100-199: 5 unitsFS: 200-249: 6 units FS 250-299: 7 units FS above 300: 8 units, # 15 mL, 1 Refills, 05/15/23 10:16:00 EDT, [facility], No insur... Start Date: 05/15/23 Status: Ordered isosorbide mononitrate 30 mg oral tablet, extended release 30 mg, 1, tablet, By Mouth, Daily at bedtime, Para el paty. Noelle antes de acostarse., # 30 tablet, Refills 3, Tot. Refills 3, Maintenance, 07/19/23 13:01:00 EST, Route to Pharmacy Electronically, [facility]/pharmacy #[id number], Partial fill upon patient reque... Start Date: 07/19/23 Stop Date: 11/16/23 Status: Ordered Jardiance 25 mg oral tablet 1 tablet = 25 mg, By Mouth, Daily in AM, # 30 tablet, 5 Refills, Maintenance, 07/19/23 13:00:00 EST, [facility]/pharmacy #[id number], Partial fill upon patient [...] 07/13/24 13:01:00 EST, 07/19/23 13:01:00 EST, Injection, [facility]/pharmacy #[id number], increase in dose, 165, cm, 04/16/23 8:59:00 EDT, [facility]... Start Date: 07/19/23 Stop Date: 07/13/24 Status: Ordered Lantus Solostar Pen 100 units/mL subcutaneous solution = 23 units, Subcutaneous Injection, Daily at bedtime, Insulina de 24 horas., # 15 mL, 1 Refills, Maintenance, 04/26/24 16:08:00 EDT, Injection, [facility], No insurance (Medicare not active [...] 07/19/23 13:01:00 EST, Route to Pharmacy Electronically, [facility]/pharmacy #[id number],... Start Date: 07/19/23 Stop Date: 07/13/24 Status: Ordered morphine 15 mg/8 to 12 hr oral tablet, extended release 1 tablet = 15 mg, By Mouth, Every 12 hours, # 56 tablet, 0 Refills, Maintenance, 09/03/23 15:16:00 EST, ER Tablet, [facility]/pharmacy #[id number], Partial fill upon patient request if the prescription is for a schedule II opioid drug. in addition to oxycodone ; ;... Start Date: 09/03/23 Stop Date: 10/01/23 Status: Ordered nortriptyline 10 mg oral capsule [...] days, # 112 tablet, 0 Refills, Acute 10/01/23 15:17:00 EDT, 09/03/23 15:17:00 EST, [facility]/pharmacy #[id number], Partial fill upon patient request ifthe prescription is for a schedule II opioid drug.... Start Date: 09/03/23 Stop Date: 10/01/23 Status: Ordered pullups - adult size medium [...] weight: 93kg, 11/21/21 16:40:00 EDT, sent to [facility] Start Date: 11/21/21 Status: Ordered shower [...] Name: Ya Wilson RN Position: [facility] RN Member [...] Care Member Role: PCP Address: Address: [address] [place] [address] Name: Heidi Dao Position: [facility] RN Member Role: Primary Care Nurse Care Team Related Persons Name: JOEL BRIZUELA Address: home [address] [place] [address], [place] [address]
--- OUTSIDE RECORDS SUMMARY | 2023-12-10 00:49 | XMS_ITS | Continuity of Care Document ---
Author Organization [facility] Address [address] [place] [address]- Care Team Providers Care Last Putter Away Name Role Phone Cassandra WHITE, Claire Primary Care Physician [phone] Encounter [facility] Date(s): 02/24/20 - 03/25/[address] [address]- [facility] Allergies, Adverse Reactions, Alerts Substance [...] PLUS 1 MORE TIME NEEDED FOR SYMPTOMS, [facility] Start Date: 04/21/19 Status: Ordered FREESTYLE LANCETS 100CT See Instructions, # 100 each, Refills 11 Tot. Refills 11, USE DIRECTED FOR TYPE 1 DIABETES, [facility]IN,[facility] Start Date: 03/18/19 Status: Ordered Freestyle [...] 07/28/19 15:59:00 EST, Route to Pharmacy Electronically, [facility], 165, cm, 07/21/19 14:31:00 EST, Height, 91, kg, 06/19/19 16:55:00 EST, Dry We... Start Date: 07/28/19 Stop Date: 07/22/20 Status: Ordered isosorbide mononitrate 30 mg oral tablet, extended release 1 tablet = 30 mg, By Mouth, Daily in AM, # 30 tablet, 11 Refills, Maintenance, 02/23/20 12:51:00 EDT, [facility], 165, cm, 01/12/20 16:41:00 EDT, Height, [...] 11/05/19 18:37:00 EDT, Route to Pharmacy Electronically, [facility], 165, cm, 07/21/19 14:31:00 EST, Height, [...] 02/03/20 10:00:00 EDT, Route to Pharmacy Electronically, [facility], 165, cm, 01/12/20 16:41:00 EDT, Height, [...] N-CP C are Management Bre Skinner, CC [phone](Confirmed) 02/02/19 Active Thrombocytopenia(Confirmed) Active Type 1 diabetes mellitus(Confirmed) Active Social History Social History Type Response Smoking Status Never (less than 100 in lifetime) entered on: 06/19/19 Sex
--- OUTSIDE RECORDS SUMMARY | 2023-12-10 00:49 | XMS_ITS | Continuity of Care Document ---
Author Organization [facility] Address [address] [place] [id number]- Care Team Providers [employer] Supervisor Name Role Phone Claire Trujillo MD Primary Care Physician Encounter [facility] [place] Date(s): 06/09/22 - 10/11/22 [facility] [address] [place] [address]- Attending Physician: Wendy Marin NP Admitting Physician: Tania TAVERAS, Wendy Referring Physician: Claire Trujillo MD Allergies, Adverse Reactions, Alerts Substance Reaction Severity Status metFORMIN 1 GI symptoms Active 1GI intolreance Immunizations Given and Recorded Vaccine Date Status Refusal Reason SARS-CoV-2 mRNA (aogaygx-dzkn-lgdso) vax 03/03/22 Given SARS-CoV-2 mRNA (jtaabyb-qnyt-lqzsf) vax 08/27/21 Given SARS-CoV-2 (COVID-19) mRNA BNT-162b2 [...] Moderate, Apply to legs for diabetic neuropathy. Welsh sig, # 60 Gm, 1 Refills, Maintenance, 06/06/22 9:44:00 EST, Cream, [facility], Partial fill upon patient request [...] 09/04/22 13:08:00 EST, Route to Pharmacy Electronically, [facility], Partial fill upon patient request [...] E10.42 duration: 99 weeks. Fax to [facility], 05/11/21 11:23:00 EDT, Supply Start Date: 05/11/21 Status: Ordered Home blood pressure monitor Home blood pressure monitor, See Instructions, # 1 each, Refills 0, Tot. Refills 0, Maintenance, ICD 10 I95.1; E11. 43 ALEIDA: 99 Bring rx to [facility], 05/25/22 12:53:00 EST, Supply Start Date: 05/25/22 Status: Ordered HumaLOG KwikPen 100 units/mL injectable solution See Instructions, Mealtime insulin; dose according to finger stick before meals FS 100-199: 5 unitsFS: 200-249: 6 units FS 250-299: 7 units FS above 300: 8 units, # 15 mL, 11 Refills, 06/01/22 10:46:00 EST, [facility]., 165, cm... Start Date: 06/01/22 Status: Ordered Jardiance 25 mg oral tablet 1 tablet = 25 mg, By Mouth, Daily in AM, # 30 tablet, 5 Refills, Maintenance, 06/01/22 10:45:00 EST, [facility], Partial fill upon patient request if the prescription is for a schedule II opioid drug., 165, cm, 06/01/22 10:18:00 EST, H... Start Date: 06/01/22 Stop Date: 11/28/22 Status: Ordered Lantus Solostar Pen 100 units/mL subcutaneous solution = 18 units, Subcutaneous Injection, Daily at bedtime, Insulina de 24 horas., # 15 mL, 11 Refills, Maintenance, 09/13/22 12:18:00 EST, Injection, [facility]., 165, cm, 09/04/22 13:02:00EST, Height, 84.2, kg, 05/21/22 0:51:00 EDT, Dry We... Start Date: 09/13/22 Stop Date: 09/08/23 Status: Ordered Lipitor 80 mg oral tablet 1 tablet = 80 mg, By Mouth, Daily at bedtime, para colesterol / proteger el paty/ arterias tapadas en el paty, # 30 tablet, 11 Refills, Maintenance, 05/04/22 10:23:00 EDT, Tablet, [facility], Partial fill upon patient request, [...] Type II DM, ICD10 E11.65. Fax to [address] [place] [address]., 09/13/22 12:18:00 EST, Supply Start Date: 09/13/22 [...] in recurrent falls Confirmed Active Care coordination [facility] Care Management Bre Skinner, CC [phone] Confirmed 02/02/19 Active Thrombocytopenia Confirmed Active TIA (transient ischemic attack) Confirmed Active T2DM (type 2 diabetes mellitus) Confirmed Active Social History Social History Type Response Smoking Status Never (less than 100 in lifetime) entered on: 06/19/19 Sex Patient Care team information Care Team Personnel Name: Sorin Moser RN Position: [facility] RN Member Role: Primary Care Nurse Name: Brandi Wei RN Position: [facility] RN Member Role: Primary Care Nurse Name: Ya Collier RN Position: [facility] PCO RN Member Role: Primary Care Nurse Name: Valentina Leiva RN Position: [facility] SN RN Member Role: Primary Care Nurse Name: Macarena Bedolla Position: [facility] Outreach Member Role: Lifetime Consulting Physician Name: Abigail Nuno RN Position: [facility] Onco RN Member Role: Primary Care Nurse Name: Claire Trujillo MD Position: [facility] Primary Care Physician Member Role: PCP Address: Address: [address] [place] [id number]- Name: Heidi Dao Position: [facility] RN Member Role: Primary Care Nurse Care Team Related Persons Name: JOEL BRIZUELA Address: home [place] [address] [address]
--- OUTSIDE RECORDS SUMMARY | 2023-12-10 00:49 | XMS_ITS | Continuity of Care Document ---
Author Organization [facility] Address [address] [place] [address]- Care Team Providers Care Digital Solution Architect Name Role Phone Claire Trujillo MD Primary Care Physician Encounter [facility] [place] Date(s): 06/23/20 - 07/23/[address] [address] Allergies, Adverse Reactions, Alerts Substance Reaction [...] 11/05/19 18:38:00 EDT, Route to Pharmacy Electronically, [facility], 165, cm, 07/21/19 14:31:00 EST, Height, 91,kg, 06/19/19 16:55:00 EST, Dry Weight Start Date: 11/05/19 Stop Date: 10/30/20 Status: Ordered FREESTYLE SHELLIE LITE See Instructions, # 100 each, Refills 10 Tot. Refills 10, USE TO CHECK BLOOD SUGARS 3 TIMES A DAY WITH MEALS PLUS 1 MORE TIME NEEDED FOR SYMPTOMS, [facility] Start Date: 04/21/19 Status: Ordered FREESTYLE LANCETS 100CT See Instructions, # 100 each, Refills 11 Tot. Refills 11, USE DIRECTED FOR TYPE 1 DIABETES, KEVIN,[facility] Start Date: 03/18/19 Status: Ordered [...] mL, 2 Refills, Maintenance, 07/19/20 13:40:00 EST, [facility], d/c Ademlog;, 163, cm, 04/21/20... Start [...] 02/03/20 10:00:00 EDT, Route to Pharmacy Electronically, [facility], 165, cm, 01/12/20 16:41:00 EDT, Height, [...] BHN-BHCP C are Management Bre Skinner, CC [phone](Confirmed) 02/02/19 Active Thrombocytopenia(Confirmed) Active Type 1 diabetes mellitus(Confirmed) Active Social History Social History Type Response Smoking Status Never (less than 100 in lifetime) entered on: 06/19/19 Sex
--- OUTSIDE RECORDS SUMMARY | 2023-12-10 00:49 | XMS_ITS | Continuity of Care Document ---
Author Organization [facility] Address [address] [place] [address]- Care Team Providers Care Clay Burner Name Role Phone Claire Trujillo MD Primary Care Physician Encounter [facility] [place] Date(s): 10/30/23 - 11/29/[address] [address]- Allergies, Adverse Reactions, Alerts Substance Reaction Severity Status metFORMIN 1 GI symptoms Active 1GI intolreance Immunizations Given and Recorded Vaccine Date Status Refusal Reason zoster vaccine, inactivated 1 09/21/23 Recorded tetanus/diphtheria/pertussis, acel(Tdap) 2 09/21/23 Recorded tetanus/diphtheria/pertussis, acel(Tdap) 01/11/17 Given pneumococcal 20-valent conjugate vaccine 3 09/21/23 Recorded SARS-CoV-2 mRNA (fggizus-vfys-edtok) vax 03/03/22 Given SARS-CoV-2 mRNA (yopbamd-xunp-qhhyu) vax 08/27/21 Given SARS-CoV-2 (COVID-19) mRNA BNT-162b2 [...] 0 Refills, Maintenance, 11/27/22 11:10:00 EDT, Lotion, [facility], Partial fill upon patient request if the prescri... Start Date: 11/27/22 Status: Ordered Ankle foot orthostis Ankle foot orthostis, See Instructions, # 1 each, Refills 0, Tot. Refills 0, Maintenance, E11.40 needed for 99 weeks Fax to [facility], 09/24/23 17:56:00 EDT, Supply Start Date: 09/24/23 Status: Ordered aspirin 81 mg oral delayed release tablet 81 mg, 1, tablet, By Mouth, Daily, blood thinner/ hace la leonard avileza - para proteger el paty/ arterias tapadas en el paty, # 90 tablet, Refills 3, Tot. Refills 3, Maintenance, 09/09/23 9:59:00 EST, [facility] to Pharmacy Electronically, [facility] Start Date: 09/09/23 Stop Date: 09/03/24 Status: [...] 05/02/23 16:08:00 EDT, Route to Pharmacy Electronically, [facility], Partial fill upon patient request if the pr... Start Date: 05/02/23 Stop Date: 07/01/23 Status: Ordered docusate sodium 100 mg oral tablet 1 tablet = 100 mg, By Mouth, 2 times a day, PRN for constipation, # 60 tablet, 0 Refills, Maintenance, 11/13/23 13:28:00 EDT, Tablet, [facility]/pharmacy #[id number], Partial fill upon patient request if the prescription is for a schedule II opioid drug., 165, cm,... Start Date: 11/13/23 Status: Ordered famotidine 10 mg oral tablet 1 tablet = 10 mg, By Mouth, 2 times a day, # 60 tablet, 1 Refills, Maintenance, 11/21/23 14:38:00 EDT, Tablet, [facility]/pharmacy #[id number], Partial fill upon patient request if the prescription is for a schedule II opioid drug., 165, cm, 11/21/23 14:15:00 EDT,... Start Date: 11/21/23 Status: Ordered finasteride 5 mg oral tablet = 5 mg, By Mouth, Daily, # 30 tablet, 2 Refills, Maintenance, 12/13/23 12:34:00 EDT, Tablet, [facility]/pharmacy #[id number], Partial fill upon patient request if the prescription is for a schedule II opioid drug., 165, cm, 11/21/23 14:15:00 EDT, Height, 77, kg, 0... Start Date: 12/13/23 Stop Date: 03/12/24 Status: Ordered finasteride 5 mg oral tablet = 5 mg, By Mouth, Daily, for 30 days, # 30 tablet, 0 Refills, Hard Stop 12/13/23 12:34:00 EDT, 11/13/23 12:34:00 EDT, Tablet, [facility]/pharmacy #[id number], Partial fill upon patient request if the prescriptionis for a schedule II opioid drug., 165, cm, ... Start Date: 11/13/23 Stop Date: 12/13/23 Status: Ordered Flomax 0.4 mg oral capsule 0.8 mg, 2, capsule, By Mouth, Daily, # 180 capsule, Refills 1, Tot. Refills 1, Maintenance, 10/03/23 13:04:00 EDT, Route to Pharmacy Electronically, [facility]., Partial fill upon patient request if [...] E11. 43 ALEIDA: 99 [facility] 12:53:00 EST, Supply Start Date: [...] 09/09/23 9:57:00 EST, Route to Pharmacy Electronically, [facility]., Partial fill upon patien... Start Date: 09/09/23 Stop Date: 09/03/24 Status: Ordered Jardiance 25 mg oral tablet 1 tablet = 25 mg, By Mouth, Daily in AM, # 90 tablet, 3 Refills, Maintenance, 09/09/23 9:59:00 EST,[facility]., Partial fill upon patient request if [...] 09/27/24 13:03:00 EDT, 10/03/23 13:03:00 EDT, Injection, [facility]., increase in dose, 166, cm, 09/24/23 15:24:00... Start Date: 10/03/23 Stop Date: 09/27/24 Status: Ordered Lantus Solostar Pen 100 units/mL subcutaneous solution = 23 units, Subcutaneous Injection, Daily at bedtime, Insulina de 24 horas., # 15 mL, 1 Refills, Maintenance, 04/26/24 16:08:00 EDT, Injection, [facility]., No insurance (Medicare not active until 06/15). Please dispense via 340B., 165,... Start Date: 04/26/24 Status: Ordered Lipitor 80 mg oral tablet 1 tablet = 80 mg, By Mouth, Daily at bedtime, para colesterol / proteger el paty/ arterias tapadas en el paty, # 90 tablet, 3 Refills, Maintenance, 09/09/23 9:59:00 EST, Tablet, [facility] Partial fill upon patient [...] 09/09/23 9:57:00 EST, [facility] Start Date: 09/09/23 Stop Date: 09/03/24 Status: Ordered MiraLax oral powder for reconstitution = 17 Gm, By Mouth, Daily, for 30 days, # 510 Gm, 0 Refills, Acute 12/13/23 13:28:00 EDT, 11/13/23 13:28:00 EDT, REC Powder, [facility]/pharmacy #[id number], Partial fill upon patient request if the prescription is for a schedule II opioid drug., 17 Gm By Mouth Martha... Start Date: 11/13/23 Stop Date: 12/13/23 Status: Ordered morphine 15 mg/8 to 12 hr oral tablet, extended release 1 tablet = 15 mg, By Mouth, Every 12 hours, # 56 tablet, 0 Refills, Maintenance, 11/21/23 17:14:00 EDT, ER Tablet, [facility]/pharmacy #[id number], Partial fill upon patient [...] Acute 12/19/23 17:14:00 EDT, 11/21/23 17:14:00 EDT, [facility]/pharmacy #[id number], Partial fill upon patient request ifthe prescription is for a schedule II opioid drug.... Start Date: 11/21/23 Stop Date: 12/19/23 Status: Ordered powerwheel chair powerwheel chair, See Instructions, # 1 each, Refills 0, Tot. 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: 11[facility]21[facility]21 Status: Ordered senna - oral tablet 2 tablet, By Mouth, Daily at bedtime, PRN for constipation, for 30 days, # 60 tablet, 0 Refills, Acute 12/13/23 13:29:00 EDT, 11/13/23 13:29:00 EDT, Tablet, [facility]/pharmacy #[id number], Partial fill upon patient request if the prescription is for a schedule II... Start Date: 11/13/23 Stop Date: 12/13/23 Status: Ordered Senna 8.6 mg oral tablet 17.2 mg, 2, tablet, By Mouth, Daily, for 30 days, # 60 tablet, Refills 0, Tot. Refills 0, Acute, 12/13/23 12:34:00 EDT, 11/13/23 12:34:00 EDT, Route to Pharmacy Electronically, [facility]/pharmacy #[id number] Tablet, Partial fill upon patient request [...] Team Personnel Name: Sorin Moser RN Position: [facility] RN Member Role: Primary Care Nurse Name: Ya Wilson RN Position: [facility] RN Member Role: Primary Care Nurse Name: Brandi Wei RN Position: [facility] RN Member Role: Primary Care Nurse Name: Valentina Leiva RN Position: [facility] SN RN Member Role: Primary Care Nurse Name: Macaerna Bedolla Position: [facility] Outreach Member Role: Lifetime Consulting Physician Name: Abigail Yang RN Position: [facility] Onco RN Member Role: Primary Care Nurse Name: Claire Trujillo MD Position: [facility] Physician - Primary Care Member Role: PCP Address: Address: [address] [place] [address]- Name: Heidi Dao Position: [facility] RN Member Role: Primary Care Nurse Care Team Related Persons Name: JOEL BRIZUELA Address: home [address] [place] [address]
--- OUTSIDE RECORDS SUMMARY | 2023-12-10 00:49 | XMS_ITS | Continuity of Care Document ---
Author Organization [facility] Address [address] [place] [address]- Care Team Providers Care Banking Pin Adjuster Name Role Phone Claire Trujillo MD Primary Care Physician [phone] [place] [facility] [place] - 10/04/[address] [address]- Allergies, Adverse Reactions, Alerts Substance Reaction Severity Status metFORMIN 1 GI symptoms Active 1GI intolreance Immunizations Given and Recorded Vaccine Date Status Refusal Reason SARS-CoV-2 mRNA (lyzebcl-gbla-lmlld) vax 03/03/22 Given SARS-CoV-2 mRNA (ojfyecm-nrwt-vpwie) vax 08/27/21 Given SARS-CoV-2 (COVID-19) mRNA BNT-162b2 [...] 0 Refills, Maintenance, 11/27/22 11:10:00 EDT, [facility] fill upon patient request if [...] 09/09/23 9:59:00 EST, [facility], [facility] Start Date: 09/09/23 Stop Date: 09/03/24 Status: [...] 05/02/23 16:08:00 EDT, Route to Pharmacy Electronically, [facility], Partial fill upon patient request if the pr... Start Date: 05/02/23 Stop Date: 07/01/23 Status: Ordered Flomax 0.4 mg oral capsule 0.8 mg, 2, capsule, By Mouth, Daily, # 180 capsule, Refills 1, Tot. Refills 1, Maintenance, 10/03/23 13:04:00 EDT, [facility] Partial fill upon patient request if [...] E10.42 duration: 99 weeks. Fax to Cheryl ([facility]), 05/11/21 11:23:00 EDT, Supply Start Date: 05/11/21 Status: Ordered Home blood pressure monitor Home blood pressure monitor, See Instructions, # 1 each, Refills 0, Tot. Refills 0, Maintenance, ICD 10 I95.1; E11. 43 ALEIDA: 99 [facility] 12:53:00 EST, Supply Start [...] Route to Pharmacy Electronically, [facility], Partial fill upon patien... Start Date: 09/09/23 Stop Date: 09/03/24 Status: Ordered Jardiance 25 mg oral tablet 1 tablet = 25 mg, By Mouth, Daily in AM, # 90 tablet, 3 Refills, Maintenance, 09/09/23 9:59:00 EST,[facility], Partial fill upon patient [...] 10/03/23 13:03:00 EDT, Injection, [facility], increase in dose, 166, cm, 09/24/23 15:24:00... Start Date: 10/03/23 Stop Date: 09/27/24 Status: Ordered Lantus Solostar Pen 100 units/mL subcutaneous solution = 23 units, Subcutaneous Injection, Daily at bedtime, Insulina de 24 horas., # 15 mL, 1 Refills, Maintenance, 04/26/24 16:08:00 EDT, Injection, [facility], No insurance (Medicare not active until 06/15). Please dispense via 340B., 165,... Start Date: 04/26/24 Status: Ordered Lipitor 80 mg oral tablet 1 tablet = 80 mg, By Mouth, Daily at bedtime, para colesterol / proteger el paty/ arterias tapadas en el paty, # 90 tablet, 3 Refills, Maintenance, 09/09/23 9:59:00 EST, Tablet, [facility], Partial fill upon patient request, 166,... Start [...] 09/09/23 9:57:00 EST, [facility] Start Date: 09/09/23 Stop Date: 09/03/24 Status: Ordered morphine 15 mg/8 to 12 hr oral tablet, extended release 1 tablet = 15 mg, By Mouth, Every 12 hours, # 56 tablet, 0 Refills, Maintenance, 09/28/23 10:34:00 EDT, ER Tablet, [facility]/pharmacy #[id number], Partial fill upon patient request if [...] 10/26/23 10:34:00 EDT, 09/28/23 10:34:00 EDT, [facility]/pharmacy #[id number], Partial fill upon patient request ifthe prescription [...] 93kg, 11/21/21 16:40:00 EDT, sent to [facility] Start Date: 11/21/21 Status: Ordered shower bars [...] Care Nurse Name: Brandi Wei RN Position: [facility] RN Member Role: Primary Care Nurse Name: Valentina Leiva RN Position: [facility] SN RN Member Role: Primary Care Nurse Name: Macarena Bedolla Position: [facility] Outreach Member Role: Lifetime Consulting Physician Name: Abigial Nuno RN Position: [facility] Onco RN Member Role: Primary Care Nurse Name: Claire Trujillo MD Position: [facility] Physician - Primary Care Member Role: PCP Address: Address: [address] [place] [address]- Name: Heidi Dao Position: [facility] RN Member Role: Primary Care Nurse Care Team Related Persons Name: JOEL BRIZUELA Address: home [address] [place] [id number]
--- OUTSIDE RECORDS SUMMARY | 2023-12-10 00:49 | XMS_ITS | Continuity of Care Document ---
Author Organization [facility] Address [address] [place] [address]- Care Team Providers Care Poolroom/Poolhall Manager Name Role Phone Claire Trujillo MD Primary Care Physician [place] [facility] [place] - 02/13/[address] [address]- [facility] Allergies, Adverse Reactions, Alerts Substance [...] 5 Refills, Maintenance, 01/26/20 15:36:00 EDT, Tablet, [facility]/pharmacy #[id number], 1 tablet By Mouth 2 times a day, 165, cm, 01/12/20 16:41:00 EDT, Height, 91,kg, 06/19/19 16:55:00 EST, Dry Weight Start Date: 01/26/20 Status: Ordered FLUoxetine 20 mg oral capsule 1, capsule, By Mouth, Daily, # 90 capsule, Refills 3, Tot. Refills 3, Maintenance, 11/05/19 18:38:00 EDT, Route to Pharmacy Electronically, [facility], 165, cm, 07/21/19 14:31:00 [...] 07/28/19 15:59:00 EST, Route to Pharmacy Electronically, [facility], 165, cm, 07/21/19 14:31:00 EST, Height, [...] 11/05/19 18:37:00 EDT, Route to Pharmacy Electronically, [facility], 165, cm, 07/21/19 14:31:00 EST, Height, [...] BHN-BHCP C are Management Bre Skinner, CC [phone](Confirmed) 02/02/19 Active Thrombocytopenia(Confirmed) Active Type 1 diabetes mellitus(Confirmed) Active Social History Social History Type Response Smoking Status Never (less than 100 in lifetime) entered on: 06/19/19 Sex
--- OUTSIDE RECORDS SUMMARY | 2023-12-10 00:49 | XMS_ITS | Continuity of Care Document ---
Author Organization [facility] Address [address] [place] [address]- Care Team Providers Care First Assistant Manager Name Role Phone Claire Trujillo MD Primary Care Physician [phone] Encounter [facility] [place] Date(s): 04/24/22 - 06/11/[address] [address] Attending Physician: Claire Trujillo MD Admitting Physician: Claire Trujillo MD Referring Physician: Claire Trujillo MD Allergies, Adverse Reactions, Alerts Substance Reaction Severity Status metFORMIN 1 GI symptoms Active 1GI intolreance Immunizations Given and Recorded Vaccine Date Status Refusal Reason SARS-CoV-2 mRNA (jdlobwu-cznk-schku) vax 03/03/22 Given SARS-CoV-2 mRNA (obhjmun-qmsd-snqev) vax 08/27/21 Given SARS-CoV-2 (COVID-19) mRNA BNT-162b2 [...] B adult vaccine 10/29/14 Recorded tetanus/diphtheria/pertussis, acel(Tdap) 6/29/17 Given pneumococcal 23-valent vaccine 01/11/17 Given pneumococcal [...] 10:23:00 EDT, Route to Pharmacy Electronically, [facility].. Start Date: 05/04/22 Status: Ordered bed liners [...] 1 Refills, Maintenance, 06/06/22 9:44:00 EST, Cream, [facility], Partial fill upon patient request [...] Type II DM, ICD10 E11.65. Fax to [address] [place] [address], 05/04/22 14:01:00 EDT, Supply Start Date: 05/04/22 [...] E10.42 duration: 99 weeks. Fax to [facility], 05/11/21 11:23:00 EDT, Supply Start Date: 05/11/21 Status: Ordered Home blood pressure monitor Home blood pressure monitor, See Instructions, # 1 each, Refills 0, Tot. Refills 0, Maintenance, ICD 10 I95.1; E11. 43 ALEIDA: 99 [facility] rx to [facility], 05/25/22 12:53:00 EST, Supply Start Date: 05/25/22 Status: Ordered HumaLOG KwikPen 100 units/mL injectable solution See Instructions, Mealtime insulin; dose according to finger stick before meals FS 100-199: 5 unitsFS: 200-249: 6 units FS 250-299: 7 units FS above 300: 8 units, # 15 mL, 11 Refills, 06/01/22 10:46:00 EST, [facility] 165, cm... Start Date: 06/01/22 Status: Ordered Jardiance 25 mg oral tablet 1 tablet = 25 mg, By Mouth, Daily in AM, # 30 tablet, 5 Refills, Maintenance, 06/01/22 10:45:00 EST, [facility], Partial fill upon patient request if the prescription is for a schedule II opioid drug., 165, cm, 06/01/22 10:18:00 EST, H... Start Date: 06/01/22 Stop Date: 11/28/22 Status: Ordered Lantus Solostar Pen 100 units/mL subcutaneous solution = 12 units, Subcutaneous Injection, Daily at bedtime, Insulina de 24 horas., # 6 mL, 11 Refills, Maintenance, 06/01/22 10:46:00 EST, Injection, [facility] 165, cm, 06/01/22 10:18:00 EST, Height, 84.2, kg, 05/21/22 0:51:00 EDT, Dry Weight Start Date: 06/01/22 Stop Date: 05/27/23 Status: Ordered Lipitor 80 mg oral tablet 1 tablet = 80 mg, By Mouth, Daily at bedtime, para colesterol / proteger el paty/ arterias tapadas en el paty, # 30 tablet, 11 Refills, Maintenance, 05/04/22 10:23:00 EDT, Tablet, [facility], Partial fill upon patient request, 16... [...] 10:27:00 EDT, Route to Pharmacy Electronically, [facility]... Start Date: 05/04/22 Status: Ordered [...] 05/26/22 14:26:00 EST, [facility] fill upon [facility]ien... Start Date: [...] coordination N-CP Care Management Bre Skinner, CC [phone] Confirmed 02/02/19 Active Thrombocytopenia Confirmed Active TIA (transient ischemic attack) Confirmed Active T2DM (type 2 diabetes mellitus) Confirmed Active Social History Social History Type Response Smoking Status Never (less than 100 in lifetime) entered on: 06/19/19 Sex Patient Care team information Care Team Personnel Name: Leanne Vásquez RN Position: [facility] RN Member Role: Primary Care Nurse Name: Sorin Moser RN Position: [facility] RN Member Role: Primary Care Nurse Name: Brandi Wei RN Position: [facility] RN Member Role: Primary Care Nurse Name: Ya Collier RN Position: [facility] PCO RN Member Role: Primary Care Nurse Name: Valentina Leiva RN Position: [facility] SN RN Member Role: Primary Care Nurse Name: Macarena Bedolla Position: [facility] Outreach Member Role: Lifetime Consulting Physician Name: Abigail Nuno RN Position: [facility] Onco RN Member Role: Primary Care Nurse Name: Claire Trujillo MD Position: [facility] Primary Care Physician Member Role: PCP Address: Address: [address] [place] [id number]- [place] Name: Heidi Dao Position: S RN Member Role: Primary Care Nurse Care Team Related Persons Name: JOEL BRIZUELA Address: [address] [place] [id number]
--- OUTSIDE RECORDS SUMMARY | 2023-12-10 00:49 | XMS_ITS | Continuity of Care Document ---
Author Organization [facility] Address Unknown Care Team Providers Care Rolled Oats Mill Operator Name Role Phone Claire Trujillo MD Primary Care Physician [phone] [place] [facility] [place] 06[place]21 [facility] Allergies, Adverse Reactions, Alerts Substance Reaction [...] Type II DM, ICD10 E11.65. Fax to [facility], 10/28/20 14:47:00 EDT, Supply Start Date: [...] PLUS 1 MORE TIME NEEDED FOR SYMPTOMS, [facility] Start Date: 04/21/19 Status: Ordered FREESTYLE LANCETS 100CT See Instructions, # 100 each, Refills 11 Tot. Refills 11, USE DIRECTED FOR TYPE 1 DIABETES, [facility]IN,[facility] Start Date: 03/18/19 Status: [...] 01/06/21 12:38:00 EDT, Route to Pharmacy Electronically, [facility], 163, cm, 01/03/21 10:40:00 EDT, Height, 91, kg, 04/19/20 23:16:00 EDT, Dry Weight Start Date: 01/06/21 Status: Ordered Hand Held Shower Head Hand Held Shower Head, See Instructions, # 1 each, Refills 0, Tot. Refills 0, Maintenance, diagnosis: diabetic neuropathy, T1DM. ICD10: E10.42 duration: 99 weeks. Fax to [facility]), 05/11/21 11:23:00 EDT, Supply Start Date: 05/11/21 Status: Ordered isosorbide mononitrate 60 mg oral tablet, extended release 60 mg, 1, tablet, By Mouth, Daily in AM, # 90 tablet, Refills 3, Tot. Refills 3, Maintenance, 01/03/21 10:57:00 EDT, Route to Pharmacy Electronically, [facility], Partial fill upon patient request if the prescription is for a schedule II opioid . Start Date: 01/03/21 Status: Ordered Jardiance 10 mg oral tablet 1 tablet, By Mouth, Daily in AM, # 30 tablet, 2 Refills, [facility], 164, cm, 03/02/21 8:40:00 EDT, Height, [...] AT BEDTIME, # 15 mL, 2 Refills, [facility], 164, cm, 03/02/21 8:40:00 EDT, Height, 87.5, kg, 02/10/21 9:00:00 EDT, Dry Weight Start Date: 05/25/21 Status: Ordered Lipitor 80 mg oral tablet 1 tablet = 80 mg, By Mouth, Daily at bedtime, # 90 tablet, 3 Refills, Maintenance, 03/07/21 9:07:00EDT, Tablet, [facility] #[id number], Partial fill upon patient request, 164, cm, 03/02/21 8:40:00 EDT, Height, 87.5, kg, 02/10/21 9:00:00 EDT, Dry Weight Start Date: 03/07/21 Stop Date: 03/02/22 Status: Ordered lisinopril 10 mg oral tablet 1, tablet, By Mouth, Daily, # 90 tablet, Refills 1, Route to Pharmacy Electronically, [facility], 164, cm, 03/02/21 8:40:00 EDT, Height, [...] weight: 91kg, 08/26/20 16:56:00 EST, sent to [facility]. Start Date: 08/26/20 Status: Ordered shower bars [...] [facility], Partial fill upon patient request ifthe prescription is for a schedule II opioid drug.,... Start Date: 01/03/21 Status: Ordered traZODone 50 mg oral tablet 1, tablet, By Mouth, Daily at bedtime, PRN, # 30 tablet, Refills 5, Tot. Refills 5, Maintenance, ASNEEDED FOR SLEEP, 05/20/21 15:25:00 EDT, Route to Pharmacy Electronically, [facility]/pharmacy #[id number], 164,cm, 03/02/21 8:40:00 EDT, Height, [...] BHN-BHCP C are Management Bre Skinner, CC [phone](Confirmed) 02/02/19 Active Thrombocytopenia(Confirmed) Active T2DM (type 2 diabetes mellitus)(Confirmed) Active Social History Social History Type Response Smoking Status Never (less than 100 in lifetime) entered on: 06/19/19 Sex
--- OUTSIDE RECORDS SUMMARY | 2023-12-10 00:49 | XMS_ITS | Continuity of Care Document ---
Author Organization [facility] Address [address] [place] [address]- Care Team Providers Care Pupil Personnel Services Director Name Role Phone Cliare Trujillo MD Primary Care Physician Encounter [facility] [place] Date(s): 10/31/22 - 11/30/[address] [address]- Allergies, Adverse Reactions, Alerts Substance Reaction Severity Status metFORMIN 1 GI symptoms Active 1GI intolreance Immunizations Given and Recorded Vaccine Date Status Refusal Reason SARS-CoV-2 mRNA (weyaojh-btze-lovzc) vax 03/03/22 Given SARS-CoV-2 mRNA (ykedcat-wmid-ykxfy) vax 08/27/21 Given SARS-CoV-2 (COVID-19) mRNA BNT-162b2 [...] 0 Refills, Maintenance, 11/27/22 11:10:00 EDT, [facility]otion[facility], [facility] [...] 05/04/22 10:23:00 EDT, Route to Pharmacy Electronically, [facility]... Start Date: 05/04/22 Status: Ordered bed [...] Moderate, Apply to legs for diabetic neuropathy. Estonian sig, # 60 Gm, 1 Refills, Maintenance, 06/06/22 9:44:00 EST, Cream, [facility], Partial fill upon patient request if [...] 10/16/22 13:34:00 EDT, Route to Pharmacy Electronically, [facility], Partial fill upon patient request if [...] E10.42 duration: 99 weeks. Fax to [facility] ([facility]), 05/11/21 11:23:00 EDT, Supply Start Date: [...] 15 mL, 11 Refills, 06/01/22 10:46:00 EST, [facility] 165, cm... Start Date: 06/01/22 Status: Ordered Jardiance 25 mg oral tablet 1 tablet = 25 mg, By Mouth, Daily in AM, # 30 tablet, 5 Refills, Maintenance, 11/08/22 15:44:00 EDT, [facility], Partial fill upon patient request if the prescription is for a schedule II opioid drug., 165, cm, 09/04/22 13:02:00 EST, H... Start Date: 11/08/22 Stop Date: 05/07/23 Status: Ordered Lantus Solostar Pen 100 units/mL subcutaneous solution = 18 units, Subcutaneous Injection, Daily at bedtime, Insulina de 24 horas., # 15 mL, 11 Refills, Maintenance, 09/13/22 12:18:00 EST, Injection, [facility]., 165, cm, 09/04/22 13:02:00EST, Height, 84.2, kg, 05/21/22 0:51:00 EDT, Dry We... Start Date: 09/13/22 Stop Date: 09/08/23 Status: Ordered Lipitor 80 mg oral tablet 1 tablet = 80 mg, By Mouth, Daily at bedtime, para colesterol / proteger el paty/ arterias tapadas en el paty, # 30 tablet, 11 Refills, Maintenance, 05/04/22 10:23:00 EDT, Tablet, [facility], Partial fill upon patient request, 16... [...] 05/04/22 10:27:00 EDT, Route to Pharmacy Electronically, [facility]... Start Date: 05/04/22 Status: Ordered [...] weight: 93kg, 11/21/21 16:40:00 [facility] Start Date: 11/21/21 Status: Ordered shower [...] Team Personnel Name: Sorin Moser RN Position: [facility] RN Member Role: Primary Care Nurse Name: Brandi Wei RN Position: [facility] RN Member Role: Primary Care Nurse Name: Ya Collier RN Position: [facility] PCO RN Member Role: Primary Care Nurse Name: Valentina Leiva RN Position: [facility] SN RN Member Role: Primary Care Nurse Name: Macarena Bedolla Position: [facility] Outreach Member Role: Lifetime Consulting Physician Name: Abigail Nuno RN Position: [facility] Onco RN Member Role: Primary Care Nurse Name: Claire Trujillo MD Position: [facility] Primary Care Physician Member Role: PCP Address: Address: [address] [place] [id number] Name: Heidi Dao Position: [facility] RN Member Role: Primary Care Nurse Care Team Related Persons Name: JOEL BRIZUELA Address: [facility] [address] [place] [id number]
--- OUTSIDE RECORDS SUMMARY | 2023-12-10 00:50 | XMS_ITS | Continuity of Care Document ---
Author Organization [facility] Address [address] [place] [address]- Care Team Providers Care Operational Communication Chief Name Role Phone Claire Trujillo MD Primary Care Physician Encounter [facility] [place] Date(s): 03/09/22 - 04/08/[address] [address]- Allergies, Adverse Reactions, Alerts Substance Reaction Severity Status metFORMIN 1 GI symptoms Active 1GI intolreance Immunizations Given and Recorded Vaccine Date Status Refusal Reason SARS-CoV-2 mRNA (numvzvh-lkis-lbmdj) vax 03/03/22 Given SARS-CoV-2 mRNA (gdiuwnz-lvbt-acyxk) vax 08/27/21 Given SARS-CoV-2 (COVID-19) mRNA BNT-162b2 [...] tablet, 3 Refills, Maintenance, 03/03/22 15:27:00 EDT, [facility], 164, cm, 03/03/22 14:46:00 EDT, Height, [...] 60 tablet, 5 Refills, 02/15/22 18:16:00 EDT, [facility], 30, 1 tablet By Mouth 2 times a day, 164, cm, 11/21/21 14:03:00 EDT, Height, 87.5, kg, 02/10/21 9:00:00 EDT, Dry Weight Start Date: 02/15/22 Status: Ordered Diabetic Shoes with Inserts Diabetic Shoes with Inserts, See Instructions, # 2 each, Refills 0, Tot. Refills 0, Maintenance, Wear for diabetic foot care. Diagnosis: Type II DM, ICD10 E11.65. Fax to [facility], 10/28/20 14:47:00 EDT, Supply Start [...] 11, USE [facility]ED FOR TYPE 1 DIABETES, [facility]: 03/18[facility]19 Status: Ordered [...] 15 mL, 11 Refills, 03/03/22 15:23:00 EDT, [facility]... Start Date: 03/03/22 Status: Ordered isosorbide mononitrate 60 mg oral tablet, extended release 60 mg, 1, tablet, By Mouth, Daily in AM, # 30 tablet, Refills 5, Tot. Refills 5, Maintenance, 11/14/21 12:33:00 EDT, Route to Pharmacy Electronically, [facility], Partial fill upon patient request if the prescription is for a schedule... Start Date: 11/14/21 Status: Ordered Jardiance 10 mg oral tablet 1 tablet, By Mouth, Daily in AM, # 30 tablet, 5 Refills, [facility], 164, cm, 11/21/21 14:03:00 EDT, Height, 87.5, kg, 02/10/21 9:00:00 EDT, Dry Weight Start Date: 02/16/22 Status: Ordered Lantus Solostar Pen 100 units/mL subcutaneous solution = 8 units, Subcutaneous Injection, Daily at bedtime, # 15 mL, 2 Refills, Maintenance, 05/07/20 13:08:00 EDT, Injection, [facility], 163, cm, 04/21/20 22:04:00 EDT, Height, 91, kg, 04/19/20 23:16:00 EDT, Dry Weight Start Date: 05/07/20 Stop Date: 08/05/20 Status: Ordered Lipitor 80 mg oral tablet 1 tablet = 80 mg, By Mouth, Daily at bedtime, # 90 tablet, 3 Refills, Maintenance, 03/03/22 15:27:00 EDT, Tablet, [facility], Partial fill upon patient request, 164, cm, 03/03/22 14:46:00 EDT, Height, 87.5, kg, 02/10/21 9:00:00 EDT, . Start Date: 03/03/22 Stop Date: 02/26/23 Status: Ordered lisinopril 10 mg oral tablet 1, tablet, By Mouth, Daily, for 30 days, # 30 tablet, Refills 5, Tot. Refills 5, Physician Stop 09/05/22 11:46:00 EST, 03/09/22 11:46:00 EDT, Route to Pharmacy Electronically, [facility] 164, cm, 03/03/22 14:46:00 EDT, Height, 87.5, [...] EDT, Supply Start Date: 03/13/22 Status: Ordered mirtazapine 7.5 mg oral tablet [...] capsule, 3 Refills, Maintenance, 03/03/22 15:29:00EDT, Capsule, [facility], Partial fill upon patient request if [...] weight: 91kg, 08/26/20 16:56:00 EST, sent to [facility]. Start Date: 08/26/20 Status: Ordered rollator walker [...] 08/26/21 13:58:00 EST, Route to Pharmacy Electronically, [facility], Partial fill upon patient request if the prescription is for a schedule II opi... Start Date: 08/26/21 Status: Ordered traZODone 50 mg oral tablet 1, tablet, By Mouth, Daily at bedtime, PRN, # 30 tablet, Refills 5, Tot. Refills 5, Maintenance, ASNEEDED FOR SLEEP, 11/14/21 12:34:00 EDT, [facility], cm, 03/02/21 8:40:00 [...] BHN-BHCP C are Management Bre Skinner, CC [phone](Confirmed) 02/02/19 Active Thrombocytopenia(Confirmed) Active TIA (transient ischemic attack)(Confirmed) Active T2DM (type 2 diabetes mellitus)(Confirmed) Active Social History Social History Type Response Smoking Status Never (less than 100 in lifetime) entered on: 06/19/19 Sex Care Team Personnel Name: Claire Trujillo MD Address: [address] [place] [address]
--- OUTSIDE RECORDS SUMMARY | 2023-12-10 00:50 | XMS_ITS | Continuity of Care Document ---
Author Organization [facility] Address [address] [place] [address]- Care Team Providers Care Investigative Assistant Name Role Phone Claire Trujillo MD Primary Care Physician Encounter [facility] [place] Date(s): 06/07/20 - 07/07/[address] [address] Allergies, Adverse [...] PLUS 1 MORE TIME NEEDED FOR SYMPTOMS, [facility] Start Date: 04/21/19 Status: Ordered FREESTYLE LANCETS 100CT See Instructions, # 100 each, Refills 11 Tot. Refills 11, USE DIRECTED FOR TYPE 1 DIABETES, KEVIN,[facility] Start Date: 03/18/19 Status: Ordered Freestyle [...] 07/28/19 15:59:00 EST, Route to Pharmacy Electronically, [facility], 165, cm, 07/21/19 14:31:00 EST, Height, [...] 11/05/19 18:37:00 EDT, Route to Pharmacy Electronically, [facility], 165, cm, 07/21/19 14:31:00 EST, Height, [...] 02/03/20 10:00:00 EDT, Route to Pharmacy Electronically, [facility], 165, cm, 01/12/20 16:41:00 EDT, Height, [...] BHN-CP C are Management Bre Skinner, CC [phone](Confirmed) 02/02/19 Active Thrombocytopenia(Confirmed) Active Type 1 diabetes mellitus(Confirmed) Active Social History Social History Type Response Smoking Status Never (less than 100 in lifetime) entered on: 06/19/19 Sex
--- OUTSIDE RECORDS SUMMARY | 2023-12-10 00:50 | XMS_ITS | Continuity of Care Document ---
Author Organization [facility] Address [address] [place] [address]- Care Team Providers Care Brick Catcher Name Role Phone Claire Trujillo MD Primary Care Physician [place] [facility] [place] - 12/07/[address] [address]- Allergies, Adverse Reactions, Alerts Substance Reaction Severity Status metFORMIN 1 GI symptoms Active 1GI intolreance Immunizations Given and Recorded Vaccine Date Status Refusal Reason zoster vaccine, inactivated 1 09/21/23 Recorded tetanus/diphtheria/pertussis, acel(Tdap) 2 09/21/23 Recorded tetanus/diphtheria/pertussis, acel(Tdap) 01/11/17 Given pneumococcal 20-valent conjugate vaccine 3 09/21/23 Recorded SARS-CoV-2 mRNA (rwkacae-goda-sioyw) vax 03/03/22 Given SARS-CoV-2 mRNA (juiwjnw-rvpq-dklhd) vax 08/27/21 Given SARS-CoV-2 (COVID-19) mRNA BNT-162b2 [...] 0 Refills, Maintenance, 11/27/22 11:10:00 EDT, Lotion, [facility], Partial fill upon patient request if the prescri... Start Date: 11/27/22 Status: Ordered Ankle foot orthostis Ankle foot orthostis, See Instructions, # 1 each, Refills 0, Tot. Refills 0, Maintenance, E11.40 needed for 99 weeks Fax to [facility], 09/24/23 17:56:00 EDT, Supply Start Date: 09/24/23 Status: Ordered aspirin 81 mg oral delayed release tablet 81 mg, 1, tablet, By Mouth, Daily, blood thinner/ hace la leonard avileza - para proteger el paty/ arterias tapadas en el paty, # 90 tablet, Refills 3, Tot. Refills 3, Maintenance, 09/09/23 9:59:00 EST, Route to Pharmacy Electronically, [facility]... Start Date: 09/09/23 Stop Date: [...] 05/02/23 16:08:00 EDT, Route to Pharmacy Electronically, [facility], Partial fill upon patient request if the pr... Start Date: 05/02/23 Stop Date: 07/01/23 Status: Ordered docusate sodium 100 mg oral tablet 1 tablet = 100 mg, By Mouth, 2 times a day, PRN for constipation, # 60 tablet, 0 Refills, Maintenance, 11/13/23 13:28:00 EDT, Tablet, [facility]/pharmacy #[id number], Partial fill upon patient request if the prescription is for a schedule II opioid drug., 165, cm,... Start Date: 11/13/23 Status: Ordered famotidine 10 mg oral tablet 1 tablet = 10 mg, By Mouth, 2 times a day, # 60 tablet, 1 Refills, Maintenance, 11/21/23 14:38:00 EDT, Tablet, [facility]/pharmacy #[id number], Partial fill upon patient request if the prescription is for a schedule II opioid drug., 165, cm, 11/21/23 14:15:00 EDT,... Start Date: 11/21/23 Status: Ordered finasteride 5 mg oral tablet = 5 mg, By Mouth, Daily, # 30 tablet, 2 Refills, Maintenance, 12/13/23 12:34:00 EDT, Tablet, [facility]/pharmacy #[id number], Partial fill upon patient request if the prescription is for a schedule II opioid drug., 165, cm, 11/21/23 14:15:00 EDT, Height, 77, kg, 0... Start Date: 12/13/23 Stop Date: 03/12/24 Status: Ordered finasteride 5 mg oral tablet = 5 mg, By Mouth, Daily, for 30 days, # 30 tablet, 0 Refills, Hard Stop 12/13/23 12:34:00 EDT, 11/13/23 12:34:00 EDT, Tablet, [facility]/pharmacy #[id number], Partial fill upon patient request if the prescriptionis for a schedule II opioid drug., 165, cm, ... Start Date: 11/13/23 Stop Date: 12/13/23 Status: Ordered Flomax 0.4 mg oral capsule 0.8 mg, 2, capsule, By Mouth, Daily, # 180 capsule, Refills 1, Tot. Refills 1, Maintenance, 10/03/23 13:04:00 EDT, Route to Pharmacy Electronically, [facility]., Partial fill upon patient request if [...] E10.42 duration: 99 weeks. Fax to [facility]yl [facility]), 05/11/21 11:23:00 EDT, Supply Start [...] 9:57:00 EST, Route to Pharmacy Electronically, [facility]., Partial fill upon patien... Start Date: 09/09/23 Stop Date: 09/03/24 Status: Ordered Jardiance 25 mg oral tablet 1 tablet = 25 mg, By Mouth, Daily in AM, # 90 tablet, 3 Refills, Maintenance, 09/09/23 9:59:00 EST,[facility]., Partial fill upon patient request if [...] Refills, Maintenance, 04/26/24 16:08:00 EDT, Injection, [facility]., No insurance (Medicare not active until 06/15). Please dispense via 340B., 165,... Start Date: 04/26/24 Status: Ordered Lipitor 80 mg oral tablet 1 tablet = 80 mg, By Mouth, Daily at bedtime, para colesterol / proteger el paty/ arterias tapadas en el paty, # 90 tablet, 3 Refills, Maintenance, 09/09/23 9:59:00 EST, Tablet, [facility] Partial fill upon patient request, [...] 09/09/23 9:57:00 EST, [facility] Start Date: 09/09/23 Stop Date: 09/03/24 Status: Ordered MiraLax oral powder for reconstitution = 17 Gm, By Mouth, Daily, for 30 days, # 510 Gm, 0 Refills, Acute 12/13/23 13:28:00 EDT, 11/13/23 13:28:00 EDT, REC Powder, [facility]/pharmacy #[id number], Partial fill upon patient request if the prescription is for a schedule II opioid drug., 17 Gm By Mouth Martha... Start Date: 11/13/23 Stop Date: 12/13/23 Status: Ordered morphine 15 mg/8 to 12 hr oral tablet, extended release 1 tablet = 15 mg, By Mouth, Every 12 hours, # 56 tablet, 0 Refills, Maintenance, 11/21/23 17:14:00 EDT, ER Tablet, [facility]/pharmacy #[id number], Partial fill upon patient [...] Acute 12/19/23 17:14:00 EDT, 11/21/23 17:14:00 EDT, [facility]/pharmacy #[id number], Partial fill upon patient request ifthe prescription is for a schedule II opioid drug.... Start Date: 11/21/23 Stop Date: 12/19/23 Status: Ordered powerwheel chair powerwheel chair, See Instructions, # 1 each, Refills 0, Tot. 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 99 weeks fax to [facility], 09/24/23 17:56:00 EDT, Supply Start [...] weight: 93kg, 11/21/21 16:40:00 EDT, sent to [facility]. Start Date: 11/21/21 Status: Ordered senna - oral tablet 2 tablet, By Mouth, Daily at bedtime, PRN for constipation, for 30 days, # 60 tablet, 0 Refills, Acute 12/13/23 13:29:00 EDT, 11/13/23 13:29:00 EDT, Tablet, [facility]/pharmacy #[id number], Partial fill upon patient request if the prescription is for a schedule II... Start Date: 11/13/23 Stop Date: 12/13/23 Status: Ordered Senna 8.6 mg oral tablet 17.2 mg, 2, tablet, By Mouth, Daily, for 30 days, # 60 tablet, Refills 0, Tot. Refills 0, Acute, 12/13/23 12:34:00 EDT, 11/13/23 12:34:00 EDT, Route to Pharmacy Electronically, [facility]/pharmacy #[id number] Tablet, Partial fill upon [...] Consulting Physician Name: Abigail Yang RN Position: [facility] Onco RN Member Role: Primary Care Nurse Name: Claire Trujillo MD Position: [facility] Physician - Primary Care Member Role: PCP Address: Address: [address] [place] [id number]- Name: Heidi Dao Position: [facility] RN Member Role: Primary Care Nurse Care Team Related Persons Name: JOEL BRIZUELA Address: home [address] [place] [id number]
--- OUTSIDE RECORDS SUMMARY | 2023-12-10 00:50 | XMS_ITS | Continuity of Care Document ---
Author Organization [facility] Address [address] [place] [address]- Care Team Providers Care Glue Machine Operator Name Role Phone Claire Trujillo MD Primary Care Physician [place] [facility] [place] 11/13/22 - 12/13/[address] [address]- Allergies, Adverse Reactions, Alerts Substance Reaction Severity Status metFORMIN 1 GI symptoms Active 1GI intolreance Immunizations Given and Recorded Vaccine Date Status Refusal Reason SARS-CoV-2 mRNA (nqsbhgj-xfim-vfwug) vax 03/03/22 Given SARS-CoV-2 mRNA (dvlxeze-hrdg-pdvqm) vax 08/27/21 Given SARS-CoV-2 (COVID-19) mRNA BNT-162b2 [...] 0 Refills, Maintenance, 11/27/22 11:10:00 EDT, [facility] [...] Moderate, Apply to legs for diabetic neuropathy. Greenlandic sig, # 60 Gm, 1 Refills, Maintenance, 06/06/22 9:44:00 EST, Cream, [facility], Partial fill upon patient request if [...] 10/16/22 13:34:00 EDT, Route to Pharmacy Electronically, [facility], Partial fill upon patient request if [...] E10.42 duration: 99 weeks. Fax to Cheryl ([facility]), 05/11/21 11:23:00 EDT, Supply Start Date: 05/11/21 Status: Ordered Home blood pressure monitor Home blood pressure monitor, See Instructions, # 1 each, Refills 0, Tot. Refills 0, Maintenance, ICD 10 I95.1; E11. 43 ALEIDA: 99 Bring rx to [facility], 05/25/22 12:53:00 EST, Supply Start Date: 05/25/22 Status: Ordered HumaLOG KwikPen 100 units/mL injectable solution See Instructions, Mealtime insulin; dose according to finger stick before meals FS 100-199: 5 unitsFS: 200-249: 6 units FS 250-299: 7 units FS above 300: 8 units, # 15 mL, 11 Refills, 06/01/22 10:46:00 EST, [facility]., 165, cm... Start Date: 06/01/22 Status: Ordered Jardiance 25 mg oral tablet 1 tablet = 25 mg, By Mouth, Daily in AM, # 30 tablet, 5 Refills, Maintenance, 11/08/22 15:44:00 EDT, [facility], Partial fill upon patient request if the prescription is for a schedule II opioid drug., 165, cm, 09/04/22 13:02:00 EST, H... Start Date: 11/08/22 Stop Date: 05/07/23 Status: Ordered Lantus Solostar Pen 100 units/mL subcutaneous solution = 18 units, Subcutaneous Injection, Daily at bedtime, Insulina de 24 horas., # 15 mL, 11 Refills, Maintenance, 09/13/22 12:18:00 EST, Injection, [facility]., 165, cm, 09/04/22 13:02:00EST, Height, 84.2, kg, 05/21/22 0:51:00 EDT, Dry We... Start Date: 09/13/22 Stop Date: 09/08/23 Status: Ordered Lipitor 80 mg oral tablet 1 tablet = 80 mg, By Mouth, Daily at bedtime, para colesterol / proteger el paty/ arterias tapadas en el paty, # 30 tablet, 11 Refills, Maintenance, 05/04/22 10:23:00 EDT, Tablet, [facility], Partial fill upon patient request, 16... [...] 05/04/22 10:27:00 EDT, Route to Pharmacy Electronically, [facility]... Start Date: 05/04/22 Status: Ordered [...] weight: 93kg, 11/21/21 16:40:00 [facility] Start Date: 11/21/21 Status: Ordered [...] Name: Sorin Moser RN Position: [facility] RN Member Role: Primary Care Nurse Name: Brandi Wei RN Position: [facility] RN Member Role: Primary Care Nurse Name: Ya Collier RN Position: [facility] PCO RN Member Role: Primary Care Nurse Name: Valentina Leiva RN Position: [facility] SN RN Member Role: Primary Care Nurse Name: Macarena Bedolla Position: [facility] Outreach Member Role: Lifetime Consulting Physician Name: Abigail Nuno RN Position: [facility] Onco RN Member Role: Primary Care Nurse Name: Claire Trujillo MD Position: [facility] Physician - Primary Care Member Role: PCP Address: Address: [address] [place] [id number] Name: Heidi Dao Position: [facility] RN Member Role: Primary Care Nurse Care Team Related Persons Name: JOEL BRIZUELA Address: [address] [place] [id number]
--- OUTSIDE RECORDS SUMMARY | 2023-12-10 00:50 | XMS_ITS | Continuity of Care Document ---
Author Organization [facility] Address [address] [place] [address]- Care Team Providers Care Crate Maker Name Role Phone Claire Trujillo MD Primary Care Physician [phone] [id number] Date[facility] - 11/02/[address] [address]- Discharge Disposition: A-D/C Walkout Attending Physician: Not on Staff, Attending MD Admitting Physician: Not on Staff, Admitting MD Referring Physician: Not on Staff, Referring MD Allergies, Adverse Reactions, Alerts Substance Reaction Severity Status metFORMIN 1 GI symptoms Active 1GI intolreance Immunizations Given and Recorded Vaccine Date Status Refusal Reason SARS-CoV-2 mRNA (lzvndsh-bvwd-pwhzt) vax 08/27/21 Given SARS-CoV-2 (COVID-19) mRNA BNT-162b2 [...] tablet, 1 Refills, Maintenance, 10/17/21 10:37:00 EDT, [facility], 164, cm, 03/02/21 8:40:00 EDT, Height, [...] 60 tablet, 5 Refills, 08/10/21 14:27:00 EST, [facility] 30, 1 tablet By Mouth 2 times a day, 164, cm, 03/02/21 8:40:00 EDT, Height, 87.5, kg, 02/10/21 9:00:00 EDT, Dry Weight Start Date: 08/10/21 Status: Ordered Diabetic Shoes with Inserts Diabetic Shoes with Inserts, See Instructions, # 2 each, Refills 0, Tot. Refills 0, Maintenance, Wear for diabetic foot care. Diagnosis: Type II DM, ICD10 E11.65. Fax to [facility], 10/28/20 14:47:00 EDT, Supply Start Date: [...] 11, USE DIRECTED FOR TYPE 1 DIABETES, KEVIN,[facility] Start Date: 03/18/19 Status: Ordered [...] Maintenance, 08/10/2213:27:00 EST, [facility] 164, cm, 03/02/21 8:40:00 EDT, Height, 87.5, kg, 02/10/21 9:00:00 EDT, Dry... Start Date: 08/10/21 Status: Ordered Hand Held Shower Head Hand Held Shower Head, See Instructions, # 1 each, Refills 0, Tot. Refills 0, Maintenance, diagnosis: diabetic neuropathy, T1DM. ICD10: E10.42 duration: 99 weeks. Fax to [facility]), 05/11/21 11:23:00 EDT, Supply Start Date: 05/11/21 Status: Ordered isosorbide mononitrate 60 mg oral tablet, extended release 60 mg, 1, tablet, By Mouth, Daily in AM, # 30 tablet, Refills 2, Tot. Refills 2, Maintenance, 08/10/21 14:27:00 EST, Route to Pharmacy Electronically, [facility], Partial fill upon patient request if the prescription is for a schedule... Start Date: 08/10/21 Status: Ordered Jardiance 10 mg oral tablet 1 tablet, By Mouth, Daily in AM, # 30 tablet, 2 Refills, 08/10/21 14:27:00 EST, [facility], 164, cm, 03/02/21 8:40:00 EDT, Height, 87.5, kg, 02/10/21 9:00:00 EDT, Dry Weight Start Date: 08/10/21 Status: Ordered Lantus Solostar Pen 100 units/mL subcutaneous solution = 15 units, Subcutaneous Injection, Daily at bedtime, # 9 mL, 2 Refills, Maintenance, 05/07/20 13:08:00 EDT, Injection, [facility], 163, cm, 04/21/20 22:04:00 EDT, Height, 91, kg, 04/19/20 23:16:00 EDT, Dry Weight Start Date: 05/07/20 Stop Date: 08/05/20 Status: Ordered Lantus Solostar Pen 100 units/mL subcutaneous solution See Instructions, INJECT 15 UNITS SUBCUTANEOUSLY DAILY AT BEDTIME, # 15 mL, 2 Refills, 08/10/21 14:27:00 EST, [facility], 164, cm, 03/02/21 8:40:00 EDT, Height, 87.5, kg, 02/10/21 9:00:00 EDT, Dry Weight Start Date: 08/10/21 Status: Ordered Lipitor 80 mg oral tablet 1 tablet = 80 mg, By Mouth, Daily at bedtime, # 30 tablet, 5 Refills, Maintenance, 10/17/21 10:36:00 EDT, Tablet, [facility], Partial fill upon patient request, 164, cm, 03/02/21 8:40:00 EDT, Height, 87.5, kg, 02/10/21 9:00:00 EDT, Dry... Start Date: 10/17/21 Status: Ordered lisinopril 10 mg oral tablet 1, tablet, By Mouth, Daily, # 30 each, Refills 5, Tot. Refills 5, 10/17/21 10:36:00 EDT, Route to Pharmacy Electronically, [facility], 164, cm, 03/02/21 8:40:00 EDT, Height, [...] Daily, # 90 tablet, 3 Refills, [facility], 164, cm, 03/02/21 8:40:00 EDT,Height, 87.5, [...] 08/26/21 13:58:00 EST, Route to Pharmacy Electronically, [facility], Partial fill upon patient request if the prescription is for a schedule II opi... Start Date: 08/26/21 Status: Ordered traZODone 50 mg oral tablet 1, tablet, By Mouth, Daily at bedtime, PRN, # 30 tablet, Refills 2, Tot. Refills 2, Maintenance, ASNEEDED FOR SLEEP, 08/10/21 14:27:00 EST, Route to Pharmacy Electronically, [facility], 164, cm, 03/02/21 8:40:00 EDT, Height, [...] N-CP C are Management Bre Skinner, CC [phone](Confirmed) 02/02/19 Active Thrombocytopenia(Confirmed) Active T2DM (type 2 diabetes mellitus)(Confirmed) Active Vital Signs Most recent to oldest [Reference Range]: 1 Oxygen Saturation [94-100 %] 99 % (11/02/21 7:56 PM) Pulse Rate [55-90 bpm] 99 bpm *H* (11/02/21 7:56 PM) Blood Pressure [90-138/55-84 mm Hg] 129/ 79mm Hg (11/02/21 7:56 PM) Respiratory Rate [16-30 br/min] 18 br/mi n (11/02/21 7:56 PM) Temperature [96.8-100.4 DegF] 99.2 DegF (11/02/21 7:56 PM) Mode of Delivery (Oxygen) Room air (11/02/21 7:56 PM) Temperature Route Oral (11/02/21 7:56 PM) Social History Social History Type Response Smoking Status Never (less than 100 in lifetime) entered on: 06/19/19 Sex
--- OUTSIDE RECORDS SUMMARY | 2023-12-10 00:50 | XMS_ITS | Continuity of Care Document ---
Author Organization [facility] Address [address] [place] [address]- Care Team Providers Care Fws Faculty Assistant Name Role Phone Claire Trujillo MD Primary Care Physician Encounter [facility] Date(s): 03/30/21 - 04/29/[address] [address]- Allergies, Adverse Reactions, Alerts Substance Reaction Severity [...] II DM, ICD10 E11.65. Fax to [facility], 10/28/20 14:47:00 EDT, Supply Start Date: 10/28/20 Status: Ordered empagliflozin 10 mg oral tablet 1 tablet = 10 mg, By Mouth, Daily in AM, # 30 tablet, 2 Refills, Maintenance, 03/10/21 11:43:00 EDT, Tablet, [facility], Partial fill upon patient request [...] PLUS 1 MORE TIME NEEDED FOR SYMPTOMS, [facility] Start Date: 04/21/19 Status: Ordered FREESTYLE LANCETS 100CT See Instructions, # 100 each, Refills 11 Tot. Refills 11, USE DIRECTED FOR TYPE 1 DIABETES, KEVIN,[facility] Start Date: 03/18/19 [...] 01/06/21 12:38:00 EDT, Route to Pharmacy Electronically, [facility], 163, cm, 01/03/21 10:40:00 EDT, Height, 91, kg, 04/19/20 23:16:00 EDT, Dry Weight Start Date: 01/06/21 Status: Ordered Hand Held Shower Head Hand Held Shower Head, See Instructions, # 1 each, Refills 0, Tot. Refills 0, Maintenance, diagnosis: diabetic neuropathy, T1DM. ICD10: E10.42 duration: 99 weeks. Fax to Cheryl ([facility]), 10/28/20 14:53:00 EDT, Supply Start Date: 10/28/20 Status: Ordered isosorbide mononitrate 60 mg oral tablet, extended release 60 mg, 1, tablet, By Mouth, Daily in AM, # 90 tablet, Refills 3, Tot. Refills 3, Maintenance, 01/03/21 10:57:00 EDT, Route to Pharmacy Electronically, [facility], Partial fill upon patient request if the prescription is for a schedule II opioid drWillis.. Start Date: 01/03/21 Status: Ordered Lantus Solostar Pen 100 units/mL subcutaneous solution = 15 units, Subcutaneous Injection, Daily at bedtime, # 9 mL, 2 Refills, Maintenance, 05/07/20 13:08:00 EDT, Injection, [facility], 163, cm, 04/21/20 22:04:00 EDT, Height, 91, kg, 04/19/20 23:16:00 EDT, Dry Weight Start Date: 05/07/20 Stop Date: 08/05/20 Status: Ordered Lipitor 80 mg oral tablet 1 tablet = 80 mg, By Mouth, Daily at bedtime, # 90 tablet, 3 Refills, Maintenance, 03/07/21 9:07:00EDT, Tablet, [facility]/pharmacy #[id number], Partial fill upon patient request, 164, cm, 03/02/21 8:40:00 EDT, Height, 87.5, kg, 02/10/21 9:00:00 EDT, Dry Weight Start Date: 03/07/21 Stop Date: 03/02/22 Status: Ordered lisinopril 10 mg oral tablet 1, tablet, By Mouth, Daily, # 90 tablet, Refills 1, Route to Pharmacy Electronically, [facility], 164, cm, 03/02/21 8:40:00 EDT, [...] 16:56:00 EST, sent to [email or web address].. Start Date: 08/26/20 Status: Ordered shower bars [...] 01/03/21 10:57:00 EDT, Route to Pharmacy Electronically, [facility], Partial fill upon patient request [...] N-BHCP C are Management Bre Skinner, CC [phone](Confirmed) 02/02/19 Active Thrombocytopenia(Confirmed) Active T2DM (type 2 diabetes mellitus)(Confirmed) Active Social History Social History Type Response Smoking Status Never (less than 100 in lifetime) entered on: 06/19/19 Sex
--- OUTSIDE RECORDS SUMMARY | 2023-12-10 00:50 | XMS_ITS | Continuity of Care Document ---
Author Organization [facility] Address [address] [place] [address]- Care Team Providers Care Service Car Operator Name Role Phone Claire Trujillo MD Primary Care Physician Encounter [facility] Date(s): 06/21/22 - 07/21/[address] [address]- Allergies, Adverse Reactions, Alerts Substance Reaction Severity Status metFORMIN 1 GI symptoms Active 1GI intolreance Immunizations Given and Recorded Vaccine Date Status Refusal Reason SARS-CoV-2 mRNA (ichhkqx-htrj-jojug) vax 03/03/22 Given SARS-CoV-2 mRNA (lgmsfpe-iccj-vwqct) vax 08/27/21 Given SARS-CoV-2 (COVID-19) mRNA BNT-162b2 [...] 05/04/22 10:23:00 EDT, Route to Pharmacy Electronically, [facility]... Start Date: 05/04/22 [...] Moderate, Apply to legs for diabetic neuropathy. Argentine sig, # 60 Gm, 1 Refills, Maintenance, 06/06/22 9:44:00 EST, Cream, [facility] [address] Partial fill upon patient request if [...] duration: 99 weeks. Fax to [facility], 05/11/21 11:23:00 EDT, Supply Start [...] 15 mL, 11 Refills, 06/01/22 10:46:00 EST, [facility] 165, cm... Start Date: 06/01/22 Status: Ordered Jardiance 25 mg oral tablet 1 tablet = 25 mg, By Mouth, Daily in AM, # 30 tablet, 5 Refills, Maintenance, 06/01/22 10:45:00 EST, [facility], Partial fill upon patient request if the prescription is for a schedule II opioid drug., 165, cm, 06/01/22 10:18:00 EST, H... Start Date: 06/01/22 Stop Date: 11/28/22 Status: Ordered Lantus Solostar Pen 100 units/mL subcutaneous solution = 12 units, Subcutaneous Injection, Daily at bedtime, Insulina de 24 horas., # 6 mL, 11 Refills, Maintenance, 06/01/22 10:46:00 EST, Injection, [facility]., 165, cm, 06/01/22 10:18:00 EST, Height, 84.2, kg, 05/21/22 0:51:00 EDT, Dry Weight Start Date: 06/01/22 Stop Date: 05/27/23 Status: Ordered Lipitor 80 mg oral tablet 1 tablet = 80 mg, By Mouth, Daily at bedtime, para colesterol / proteger el paty/ arterias tapadas en el paty, # 30 tablet, 11 Refills, Maintenance, 05/04/22 10:23:00 EDT, [facility] upon patient [facility], 16... [...] 05/04/22 10:27:00 EDT, Route to Pharmacy Electronically, [facility]... Start Date: 05/04/22 Status: Ordered [...] Type II DM, ICD10 E11.65. Fax to [address] [place] [address]., 07/07/22 11:52:00 EST, Supply Start Date: 07/07/22 [...] weight: 93kg, 11/21/21 16:40:00 EDT, sent to [facility]. Start Date: 11/21/21 Status: Ordered [...] 05/26/22 14:26:00 EST, Route to Pharmacy Electronically, [facility], Partial fill upon patien... Start Date: [...] in recurrent falls Confirmed Active Care coordination [facility] Care Management Bre Skinner, CC [phone] Confirmed 02/02/19 Active Thrombocytopenia Confirmed Active TIA (transient ischemic attack) Confirmed Active T2DM (type 2 diabetes mellitus) Confirmed Active Social History Social History Type Response Smoking Status Never (less than 100 in lifetime) entered on: 06/19/19 Sex Patient Care team information Care Team Personnel Name: Sorin Moser RN Position: [facility] RN Member Role: Primary Care Nurse Name: Brandi Wei RN Position: [facility] RN Member Role: Primary Care Nurse Name: Ya Collier RN Position: [facility] PCO RN Member Role: Primary Care Nurse Name: Valentina Leiva RN Position: [facility] SN RN Member Role: Primary Care Nurse Name: Macarena Bedolla Position: [facility] Outreach Member Role: Lifetime Consulting Physician Name: Abigail Nuno RN Position: [facility] Onco RN Member Role: Primary Care Nurse Name: Claire Trujillo MD Position: [facility] Primary Care Physician Member Role: PCP Address: Address: [address] [place] [address]- Name: Heidi Dao Position: [facility] RN Member Role: Primary Care Nurse Care Team Related Persons Name: JOEL BRIZUELA Address: [address] [address]
--- OUTSIDE RECORDS SUMMARY | 2023-12-10 00:50 | XMS_ITS | Continuity of Care Document ---
Author Organization [facility] Address [address] [place] [address]- Care Team Providers Care Mental Hygiene Consultant Name Role Phone Claire Trujillo MD Primary Care Physician [phone] Encounter [facility] [place] Date(s): 03/11/21 - 04/10/[address] [address]- Allergies, Adverse Reactions, Alerts Substance Reaction Severity [...] II DM, ICD10 E11.65. Fax to [facility], 10/28/20 14:47:00 EDT, Supply Start Date: 10/28/20 Status: Ordered empagliflozin 10 mg oral tablet 1 tablet = 10 mg, By Mouth, Daily in AM, # 30 tablet, 2 Refills, Maintenance, 03/10/21 11:43:00 EDT, Tablet, [facility], Partial fill upon patient request [...] PLUS 1 MORE TIME NEEDED FOR SYMPTOMS, [facility] Start Date: 04/21/19 Status: Ordered FREESTYLE LANCETS 100CT See Instructions, # 100 each, Refills 11 Tot. Refills 11, USE DIRECTED FOR TYPE 1 DIABETES, KEVIN,[facility] Start Date: 03/18/19 Status: Ordered [...] 01/06/21 12:38:00 EDT, Route to Pharmacy Electronically, [facility], 163, cm, 01/03/21 10:40:00 EDT, Height, 91, kg, 04/19/20 23:16:00 EDT, Dry Weight Start Date: 01/06/21 Status: Ordered Hand Held Shower Head Hand Held Shower Head, See Instructions, # 1 each, Refills 0, Tot. Refills 0, Maintenance, diagnosis: diabetic neuropathy, T1DM. ICD10: E10.42 duration: 99 weeks. Fax to Cheryl ([facility]), 10/28/20 14:53:00 EDT, Supply Start Date: 10/28/20 Status: Ordered isosorbide mononitrate 60 mg oral tablet, extended release 60 mg, 1, tablet, By Mouth, Daily in AM, # 90 tablet, Refills 3, Tot. Refills 3, Maintenance, 01/03/21 10:57:00 EDT, Route to Pharmacy Electronically, [facility], Partial fill upon patient request if the prescription is for a schedule II opioid drSophia. Start Date: 01/03/21 Status: Ordered Lantus Solostar Pen 100 units/mL subcutaneous solution = 15 units, Subcutaneous Injection, Daily at bedtime, # 9 mL, 2 Refills, Maintenance, 05/07/20 13:08:00 EDT, Injection, [facility], 163, cm, 04/21/20 22:04:00 EDT, [...] tablet, Refills 1, Route to Pharmacy Electronically, [facility], 164, cm, 03/02/21 8:40:00 EDT, [...] 08/26/20 16:56:00 EST, sent to [facility].... Start Date: 08/26/20 Status: Ordered shower bars [...] 01/03/21 10:57:00 EDT, Route to Pharmacy Electronically, [facility], Partial fill upon patient request [...] [facility] C are Management Bre Skinner, CC [phone](Confirmed) 02/02/19 Active Thrombocytopenia(Confirmed) Active T2DM (type 2 diabetes mellitus)(Confirmed) Active Social History Social History Type Response Smoking Status Never (less than 100 in lifetime) entered on: 06/19/19 Sex
--- OUTSIDE RECORDS SUMMARY | 2023-12-10 00:50 | XMS_ITS | Continuity of Care Document ---
Author Organization [facility] Address [address] [place] [address]- Care Team Providers Care Dulite Machine Bluer Name Role Phone Claire Trujillo MD Primary Care Physician Encounter [facility] Date(s): 11/29/20 - 01/09/[address] [address]- Attending Physician: Not on Staff, Attending MD Referring Physician: Claire Trujillo MD Allergies, [...] Type II DM, ICD10 E11.65. Fax to [facility], 10/28/20 14:47:00 EDT, Supply Start Date: 10/28/20 Status: Ordered FLUoxetine 20 mg oral capsule 1, capsule, By Mouth, Daily, # 90 capsule, Refills 3, Tot. Refills 3, Maintenance, 11/05/19 18:38:00 EDT, Route to Pharmacy Electronically, [facility], 165, cm, 07/21/19 14:31:00 EST, Height, 91,kg, 06/19/19 16:55:00 EST, Dry Weight Start Date: 11/05/19 Stop Date: 10/30/20 Status: Ordered FREESTYLE SHELLIE LITE See Instructions, # 100 each, Refills 10 Tot. Refills 10, USE TO CHECK BLOOD SUGARS 3 TIMES A DAY WITH MEALS PLUS 1 MORE TIME NEEDED FOR SYMPTOMS, [facility] Start Date: 04/21/19 Status: Ordered FREESTYLE LANCETS 100CT See Instructions, # 100 each, Refills 11 Tot. Refills 11, USE DIRECTED FOR TYPE 1 DIABETES, KEVIN,[facility] Start Date: 03/18/19 Status: Ordered Freestyle [...] 01/06/21 12:38:00 EDT, Route to Pharmacy Electronically, [facility], 163, cm, 01/03/21 10:40:00 EDT, Height, 91, kg, 04/19/20 23:16:00 EDT, Dry Weight Start Date: 01/06/21 Status: Ordered Hand Held Shower Head Hand Held Shower Head, See Instructions, # 1 each, Refills 0, Tot. Refills 0, Maintenance, diagnosis: diabetic neuropathy, T1DM. ICD10: E10.42 duration: 99 weeks. Fax to Cheryl ([facility]), 10/28/20 14:53:00 EDT, Supply Start Date: 10/28/20 Status: Ordered HumaLOG KwikPen 100 units/mL injectable solution See Instructions, INJECT UNDER THE SKIN DIRECTED. FOUR UNITS IF BS OVER 120 ,6 UNITS IF BS AT 200 ,8 UNITS IF BS AT 300, 12 UNITS IF BS 400 THREE TIMES DAILY BEFORE MEALS. MAXIMUM 60 UNITS / DAY, # 15 mL, 11 Refills, Maintenance, [facility], 16... Start Date: 10/25/20 Status: Ordered isosorbide mononitrate 30 mg oral tablet, extended release 1 tablet = 30 mg, By Mouth, Daily in AM, for 30 days, # 30 tablet, 11 Refills, Hard Stop 02/17/21 12:51:00 EDT, 02/23/20 12:51:00 EDT, [facility], 165, cm, 01/12/20 16:41:00 EDT, Height, 91, kg, 06/19/19 16:55:00 EST, Dry Weight Start Date: 02/23/20 Stop Date: 02/17/21 Status: Ordered isosorbide mononitrate 60 mg oral tablet, extended release 60 mg, 1, tablet, By Mouth, Daily in AM, # 90 tablet, Refills 3, Tot. Refills 3, Maintenance, 01/03/21 10:57:00 EDT, Route to Pharmacy Electronically, [facility], Partial fill upon patient request if the prescription is for a schedule II opioid . Start Date: 01/03/21 Status: Ordered Lantus Solostar Pen 100 units/mL subcutaneous solution = 15 units, Subcutaneous Injection, Daily at bedtime, # 9 mL, 2 Refills, Maintenance, 05/07/20 13:08:00 EDT, Injection, [facility], 163, cm, 04/21/20 22:04:00 [...] 91kg, 08/26/20 16:56:00 EST, sent to [facility].... Start Date: 08/26/20 Status: Ordered shower bars [...] 08/04/20 14:13:00 EST, Route to Pharmacy Electronically, [facility],163, cm, 04/21/20 22:04:00 EDT, Height, 91, kg, Start Date: 08/04/20 Stop Date: 01/31/21 Status: Ordered Toprol XL 50 mg oral tablet, extended release 75 mg, 1.5, tablet, By Mouth, Daily, # 90 tablet, Refills 3, Tot. Refills 3, Maintenance, 01/03/21 10:57:00 EDT, Route to Pharmacy Electronically, [facility], Partial fill upon patient request ifthe prescription is for a schedule II opioid drug.,... Start Date: 01/03/21 Status: Ordered traZODone 50 mg oral tablet 1, tablet, By Mouth, Daily at bedtime, PRN, # 30 tablet, Refills 5, Tot. Refills 0, Maintenance, ASNEEDED FOR SLEEP, 01/05/21 15:11:00 EDT, Route to Pharmacy Electronically, [facility], 163, cm,01/03/21 10:40:00 EDT, Height, 91, [...] N-CP C are Management Bre Skinner, CC [phone](Confirmed) 02/02/19 Active Thrombocytopenia(Confirmed) Active Type 1 diabetes mellitus(Confirmed) Active Social History Social History Type Response Smoking Status Never (less than 100 in lifetime) entered on: 06/19/19 Sex
--- OUTSIDE RECORDS SUMMARY | 2023-12-10 00:50 | XMS_ITS | Continuity of Care Document ---
Author Organization [facility] Address [address] [place] [address]- Care Team Providers Care Operating Room Scheduler Name Role Phone Claire Trujillo MD Primary Care Physician [place] [facility] [place] 08/06/23 - 09/05/[address] [address]- Allergies, Adverse Reactions, Alerts Substance Reaction Severity Status metFORMIN 1 GI symptoms Active 1GI intolreance Immunizations Given and Recorded Vaccine Date Status Refusal Reason SARS-CoV-2 mRNA (arpuzln-mzkv-ppbox) vax 03/03/22 Given SARS-CoV-2 mRNA (udrnkeu-ybiu-pwqtn) vax 08/27/21 Given SARS-CoV-2 (COVID-19) mRNA BNT-162b2 [...] 0 Refills, Maintenance, 11/27/22 11:10:00 EDT, Lotion, [facility], Partial fill upon [...] 13:01:00 EST, Route to Pharmacy Electronically, [facility]acy #[id number], Partial fill upon patient request if the [...] E10.42 duration: 99 weeks. Fax to [facility], 05/11/21 11:23:00 EDT, Supply Start Date: 05/11/21 Status: Ordered Home blood pressure monitor Home blood pressure monitor, See Instructions, # 1 each, Refills 0, Tot. Refills 0, Maintenance, ICD 10 I95.1; E11. 43 ALEIDA: [facility] 05/25/[facility] 12:53:00 EST, Supply Start Date: 05/25/22 Status: Ordered HumaLOG KwikPen 100 units/mL injectable solution See Instructions, Mealtime insulin; dose according to finger stick before meals FS 100-199: 5 unitsFS: 200-249: 6 units FS 250-299: 7 units FS above 300: 8 units, # 15 mL, 1 Refills, 05/15/23 10:16:00 EDT, [facility], No insur... Start Date: 05/15/23 Status: Ordered isosorbide mononitrate 30 mg oral tablet, extended release 30 mg, 1, tablet, By Mouth, Daily at bedtime, Para el paty. Noelle antes de acostarse., # 30 tablet, Refills 3, Tot. Refills 3, Maintenance, 07/19/23 13:01:00 EST, Route to Pharmacy Electronically, [facility]/pharmacy #[id number], Partial fill upon patient reque... Start Date: 07/19/23 Stop Date: 11/16/23 Status: Ordered Jardiance 25 mg oral tablet 1 tablet = 25 mg, By Mouth, Daily in AM, # 30 tablet, 5 Refills, Maintenance, 07/19/23 13:00:00 EST, [facility]/pharmacy #[id number], Partial fill upon patient [...] 13:01:00 EST, 07/19/23 13:01:00 EST, Injection, [facility]/pharmacy #[id number], increase in dose, 165, cm, 04/16/23 8:59:00 EDT, Heig... Start Date: 07/19/23 Stop Date: 07/13/24 Status: Ordered Lantus Solostar Pen 100 units/mL subcutaneous solution = 23 units, Subcutaneous Injection, Daily at bedtime, Insulina de 24 horas., # 15 mL, 1 Refills, Maintenance, 04/26/24 16:08:00 EDT, Injection, [facility], No insurance (Medicare not active [...] 13:01:00 EST, Route to Pharmacy Electronically, [facility]/pharmacy #[id number],... Start Date: 07/19/23 Stop Date: 07/13/24 Status: Ordered morphine 15 mg/8 to 12 hr oral tablet, extended release 1 tablet = 15 mg, By Mouth, Every 12 hours, # 56 tablet, 0 Refills, Maintenance, 09/03/23 15:16:00 EST, ER Tablet, [facility]/pharmacy #[id number], Partial fill upon patient [...] Acute 10/01/23 15:17:00 EDT, 09/03/23 15:17:00 EST, [facility]/pharmacy #[id number], Partial fill upon patient [...] weight: 93kg, 11/21/21 16:40:00 EDT, sent to [facility] Start Date: 11/21/21 Status: Ordered shower [...] Team Personnel Name: Sorin Moser RN Position: [facility] RN Member Role: Primary Care Nurse Name: Ya Wilson RN Position: [facility] RN Member Role: Primary Care Nurse Name: Brandi Wei RN Position: [facility] RN Member Role: Primary Care Nurse Name: Valentina Leiva RN Position: [facility] SN RN Member Role: Primary Care Nurse Name: Macarena Bedolla Position: [facility] Outreach Member Role: Lifetime Consulting Physician Name: Abigail Nuno RN Position: [facility] Onco RN Member Role: Primary Care Nurse Name: Claire Trujillo MD Position: [facility] Physician - Primary Care Member Role: PCP Address: Address: [address] [place] [address] Name: Heidi Dao Position: [facility] RN Member Role: Primary Care Nurse Care Team Related Persons Name: JOEL BRIZUELA Address: home [address] [place] [address], [place] [address]
--- OUTSIDE RECORDS SUMMARY | 2023-12-10 00:50 | XMS_ITS | Continuity of Care Document ---
Author Organization [facility] Address [address] [place] [address]- Care Team Providers Care Drafter Seismograph Name Role Phone Claire Trujillo MD Primary Care Physician [phone] Encounter [facility] [place] Date(s): 05/26/22 - 06/25/[address] [address]- Allergies, Adverse Reactions, Alerts Substance Reaction Severity Status metFORMIN 1 GI symptoms Active 1GI intolreance Immunizations Given and Recorded Vaccine Date Status Refusal Reason SARS-CoV-2 mRNA (ffulbwo-kbln-ssrnn) vax 03/03/22 Given SARS-CoV-2 mRNA (rwkufyy-ghob-gsvsp) vax 08/27/21 Given SARS-CoV-2 (COVID-19) mRNA BNT-162b2 [...] 1 Refills, Maintenance, 06/06/22 9:44:00 EST, Cream, [facility], Partial fill upon patient request [...] II DM, ICD10 E11.65. Fax to [address] [place] [address], 05/04/22 14:01:00 EDT, Supply Start Date: 05/04/22 [...] E10.42 duration: 99 weeks. Fax to [facility], 05/11/21 11:23:00 EDT, Supply Start Date: [...] 15 mL, 11 Refills, 06/01/22 10:46:00 EST, [facility]., 165, cm... Start Date: 06/01/22 Status: Ordered Jardiance 25 mg oral tablet 1 tablet = 25 mg, By Mouth, Daily in AM, # 30 tablet, 5 Refills, Maintenance, 06/01/22 10:45:00 EST, [facility], Partial fill upon patient request if the prescription is for a schedule II opioid drug., 165, cm, 06/01/22 10:18:00 EST, H... Start Date: 06/01/22 Stop Date: 11/28/22 Status: Ordered Lantus Solostar Pen 100 units/mL subcutaneous solution = 12 units, Subcutaneous Injection, Daily at bedtime, Insulina de 24 horas., # 6 mL, 11 Refills, Maintenance, 06/01/22 10:46:00 EST, Injection, [facility] 165, cm, 06/01/22 10:18:00 EST, Height, 84.2, kg, 05/21/22 0:51:00 EDT, Dry Weight Start Date: 06/01/22 Stop Date: 05/27/23 Status: Ordered Lipitor 80 mg oral tablet 1 tablet = 80 mg, By Mouth, Daily at bedtime, para colesterol / proteger el paty/ arterias tapadas en el paty, # 30 tablet, 11 Refills, Maintenance, 05/04/22 10:23:00 EDT, Tablet, [facility], [facility] fill upon patient request, [...] 05/04/22 10:27:00 EDT, Route to Pharmacy Electronically, [facility]... Start Date: 05/04/22 Status: [...] weight: 93kg, 11/21/21 16:40:00 EDT, sent to [facility] Start Date: 11/21/21 Status: Ordered shower bars [...] 05/26/22 14:26:00 EST, Route to Pharmacy Electronically, [facility], Partial fill upon patien... Start Date: [...] coordination N-CP Care Management Bre Skinner, CC [phone] Confirmed 02/02/19 Active Thrombocytopenia Confirmed Active TIA (transient ischemic attack) Confirmed Active T2DM (type 2 diabetes mellitus) Confirmed Active Social History Social History Type Response Smoking Status Never (less than 100 in lifetime) entered on: 06/19/19 Sex Patient Care team information Care Team Personnel Name: Sorin Moser RN Position: [facility] RN Member Role: Primary Care Nurse Name: Brandi Wei RN Position: [facility] RN Member Role: Primary Care Nurse Name: Ya Collier RN Position: [facility] PCO RN Member Role: Primary Care Nurse Name: Valentina Leiva RN Position: [facility] SN RN Member Role: Primary Care Nurse Name: Macarena Bedolla Position: [facility] Outreach Member Role: Lifetime Consulting Physician Name: Abigail Nuno RN Position: [facility] Onco RN Member Role: Primary Care Nurse Name: Claire Trujillo MD Position: [facility] Primary Care Physician Member Role: PCP Address: Address: [address] [place] [address]- Name: Heidi Doa Position: [facility] RN Member Role: Primary Care Nurse Care Team Related Persons Name: BRIZUELA, JOEL Address: [address] [address]
--- OUTSIDE RECORDS SUMMARY | 2023-12-10 00:50 | XMS_ITS | Continuity of Care Document ---
Author Organization [facility] Address [address] [place] [address]- Care Team Providers Care Liaison Planner Name Role Phone Claire Trujillo MD Primary Care Physician [phone] Encounter [facility] [place] Date(s): 01/28/20 - 02/27/[address] [address]- [facility] Allergies, Adverse Reactions, Alerts Substance Reaction [...] PLUS 1 MORE TIME NEEDED FOR SYMPTOMS, [facility] Start Date: 04/21/19 Status: Ordered FREESTYLE LANCETS 100CT See Instructions, # 100 each, Refills 11 Tot. Refills 11, USE DIRECTED FOR TYPE 1 DIABETES, KEVIN,[facility] Start Date: 03/18/19 Status: Ordered Freestyle [...] 07/28/19 15:59:00 EST, Route to Pharmacy Electronically, [facility], 165, cm, 07/21/19 14:31:00 EST, Height, 91, kg, 06/19/19 16:55:00 EST, Dry We... Start Date: 07/28/19 Stop Date: 07/22/20 Status: Ordered isosorbide mononitrate 30 mg oral tablet, extended release 1 tablet = 30 mg, By Mouth, Daily in AM, # 30 tablet, 11 Refills, Maintenance, 02/23/20 12:51:00 EDT, [facility], 165, cm, 01/12/20 16:41:00 EDT, Height, [...] 11/05/19 18:37:00 EDT, Route to Pharmacy Electronically, [facility], 165, cm, 07/21/19 14:31:00 EST, Height, [...] 02/03/20 10:00:00 EDT, Route to Pharmacy Electronically, [facility], 165, cm, 01/12/20 16:41:00 EDT, Height, [...] N-CP C are Management Bre Skinner, CC [phone](Confirmed) 02/02/19 Active Thrombocytopenia(Confirmed) Active Type 1 diabetes mellitus(Confirmed) Active Social History Social History Type Response Smoking Status Never (less than 100 in lifetime) entered on: 06/19/19 Sex
[2023-12-10 01:04] LABS: Alanine Aminotransferase 18 U/L (0-40); Albumin Level 3.8 g/dL (3.5-5.0); Alkaline Phosphatase 133 U/L (39-117); Anion Gap 15 (12-20); Aspartate Amino Transferase 18 U/L (5-37); Bilirubin Total 0.8 mg/dL (0.0-1.0); Blood Urea Nitrogen 19 mg/dL (9-16); Calcium 9.3 mg/dL (8.4-10.2); Carbon Dioxide 26 mmol/L (22-29); Chloride 101 mmol/L (96-108); Creatinine Clr Calc Pharmacy 66.8; Estimated Glomerular Filt Rate > 60; Glucose Random 389 mg/dL (60-115); Lipase 24 U/L (8-78); Potassium 3.9 mmol/L (3.3-5.1); Sodium 138 mmol/L (135-145); Total Protein 7.1 g/dL (6.5-8.0)
[2023-12-10 01:53] VITALS: BP 135/62; PULSE 73; RESP 18; TEMP 36.8; O2SAT 100
[2023-12-10] MEDS: Insulin Lispro 100 UNIT/ML 3 ML VIAL 10 UNIT SUBCUT (01:54)
--- NOTE | 2023-12-10 01:54 | MHC.EDTECH ---
Hourly rounds and vitals completed,patient got up to commode with minimal assist,patient urinated and had a moderate amount of stool. Was unable to obtain a urine sample at this time.
[2023-12-10] MEDS: 0.9 % Sodium Chloride 1,000 ML 999 ML IV (01:55)
[2023-12-10 02:47] LABS: Glucose, Whole Blood 248 mg/dL (60-115)
[2023-12-10] MEDS: Milk of Magnesia 30 ML ORAL.SUSP PO (02:54)
[2023-12-10 02:55] VITALS: BP 135/62; PULSE 73; RESP 18; TEMP 36.8; O2SAT 100
== END 2023-12-10 03:08 | disposition home or self-care (01) ==
PROVIDERS: Emergency Provider Internal Medicine
DX: K59.00 Constipation, unspecified (principal); E11.65 Type 2 diabetes mellitus with hyperglycemia; I10 Essential (primary) hypertension
CPT/HCPCS: 36415; 74018; 80053; 82010; 82947; 83690; 85025; 96360; 99284

== ENCOUNTER 2023-12-13 09:21 | Outpatient (RCR) | payer OTHER, SELFPAY | END 2024-05-23 15:08 | disposition short-term general hospital (02) | LOC: HO.WCC 09:21 | PROVIDERS: PCP Internal Medicine; Visit Provider Surgery | DX: E11.621 Type 2 diabetes mellitus with foot ulcer (principal); E11.52 Type 2 diabetes mellitus with diabetic peripheral angiopathy with gangrene; L97.423 Non-pressure chronic ulcer of left heel and midfoot with necrosis of muscle; I96 Gangrene, not elsewhere classified | CPT/HCPCS: 11042; 11043 ==

== ENCOUNTER 2024-01-10 20:28 | Inpatient (IN) | payer OTHER, SELFPAY ==
--- NOTE | ~2024-01-10 | MR_ITS ---
EXAMINATION: MR ANKLE WITHOUT AND WITH CONTRAST, LEFT CLINICAL INFORMATION: Left heel necrotic ulcer. COMPARISON: Radiographs 01/10/2024. TECHNIQUE: MRI of the ankle was performed before and after the intravenous administration of 7 mL Gadavist on a high-field scanner. FINDINGS: Skin ulceration/defect at the plantar/lateral aspect of the heel pad with surrounding skin thickening compatible with cellulitis. No abscess. There is minimal edema/enhancement of the subcortical bone of the lateral tubercle of the posterior calcaneus which is most likely reactive. No definite osteomyelitis. No cortical erosion. The plantar fascia is thickened but intact. Edema of the abductor hallucis muscle likely reflects denervation change. Ill-defined mild longitudinal partial tearing of the peroneal brevis tendon immediately distal to the fibula. Mild tenosynovitis. Mild chronic Achilles tendinosis. The posterior tibialis tendon, flexor and extensor tendons are otherwise unremarkable. Persistent marrow edema around an incompletely healed fracture at the base of the 1st metatarsal. No ankle joint effusion. No talar OCD. Mild tibiotalar and midfoot arthrosis. MR/MR ankle LT wo/w con IMPRESSION: 1. Skin ulceration/defect at the plantar/lateral aspect of the heel pad with surrounding cellulitis. No abscess. No definite osteomyelitis. 2. Incompletely healed fracture at the base of the 1st metatarsal with persistent marrow edema. 3. Mild chronic Achilles tendinosis. 4. Ill-defined longitudinal partial tearing of the peroneal brevis tendon with mild tenosynovitis.
--- NOTE | ~2024-01-10 | XR_ITS ---
EXAMINATION: XR FOOT, LEFT CLINICAL INFORMATION: Left heel ulcer. Question bony erosion. COMPARISON: None available. TECHNIQUE: AP, lateral, and oblique views of the left foot. FINDINGS: Soft tissue swelling is present around the calcaneal tuberosity. No fracture or malalignment in this region. No erosions. Small enthesopathic spurs are present at the Achilles tendon insertion and plantar fascial origin on the calcaneus. Old healed fractures are present at the metatarsals including the first metatarsal base, second metatarsal shaft, and the bases of the third and fourth metatarsals. Posterior medical arthritis is present in the TMT joints. No acute fracture or dislocation identified in this region. Mild osteoarthritis of the MTP joint, most notably at the first MTP joint. Mild multifocal osteoarthritis in the interphalangeal joints. Generalized soft tissue swelling at the foot. XR/XR foot LT 2V IMPRESSION: 1. Soft tissue swelling at the heel without radiographic findings of osteomyelitis. 2. Old healed fractures of the first through fourth metatarsals. 3. 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
--- NOTE | ~2024-01-10 | CT_ITS ---
EXAMINATION: CT ABDOMEN AND PELVIS WITH CONTRAST CLINICAL INFORMATION: Hypotension. Lower abdominal pain. COMPARISON: None available. TECHNIQUE: Multidetector volumetric images were obtained from the superior aspect of the liver through the pubic symphysis following administration 85 mL of Omnipaque 350 intravenous contrast. Sagittal and coronal reformatted images were obtained on the technologist's workstation. Oral contrast: No This CT examination was performed using dose optimization techniques as appropriate, variously including the following: *Automated exposure control *Adjustment of mA and/or kV according to patient size (this includes techniques or standardized protocols for targeted exams where dose is matched to indication/reason for exam; i.e. extremities or head) *Use of iterative reconstruction technique DLP: 591 mGy-cm FINDINGS: LUNG BASES: Trace bilateral pleural fluid with mild associated dependent atelectasis and/or infiltrates. Heart upper normal in size to mildly enlarged. Moderate coronary arterial calcification. No pericardial effusion. LIVER, GALLBLADDER, AND BILIARY TREE: The liver appears unremarkable in size, shape, and attenuation. No focal hepatic lesion or biliary ductal dilatation is appreciated. Unremarkable appearance of the gallbladder. PANCREAS: Unremarkable SPLEEN: Unremarkable ADRENAL GLANDS: Unremarkable KIDNEYS AND URETERS/BLADDER: Distended urinary bladder. Mild bilateral hydroureter. Mild left hydronephrosis and mild right renal fullness without lourdes hydronephrosis. Small normal variant bilateral extrarenal pelves. No urinary tract stone identified. The kidneys appear unremarkable in size, shape, and attenuation. GASTROINTESTINAL TRACT: Moderate stool throughout the colon and rectal vault. Normal-appearing vermiform appendix. Unremarkable appearance of the stomach and small bowel. Normal-appearing distal ileum. ABDOMINAL WALL: Anasarca. No significant hernia is appreciated. LYMPH NODES: No evidence of adenopathy by size criteria. VASCULAR: Normal variant direct origins of the common hepatic artery and the left gastric artery from the aorta. Normal variant retroaortic left renal vein. PELVIC VISCERA: Unremarkable OSSEOUS STRUCTURES: Mild osteoarthritis of the hips. CT/CT abdomen pelvis w IV con IMPRESSION: Distended urinary bladder. Mild bilateral hydroureter. Mild left hydronephrosis and mild right renal fullness without lourdes hydronephrosis. Trace bilateral pleural fluid with mild associated dependent atelectasis and/or infiltrates. Anasarca. Moderate stool throughout the colon and rectal vault. Additional findings, as above.
[2024-01-10 20:30] VITALS: BP 112/60; BP 136/82; PULSE 80; PULSE 88; RESP 18; TEMP 39.3; O2SAT 97; O2SAT 98; BMI 27.3
[2024-01-10 21:04] LABS: MANUAL DIFF FLAG NO
[2024-01-10 21:05] LABS: Basophils Percent Auto 0.2 % (0-2); Eosinophils Absolute Auto 0.1 X10*3/uL (0.0-0.4); Eosinophils Percent Auto 0.6 % (0-4); Hemoglobin 12.9 g/dl (14.0-18.0); Imm Gran Abs Auto 0.05 X10*3/uL (0.00-0.03); Imm Gran Pct Auto 0.5 % (0.0-0.4); Lymphocytes Absolute Auto 1.1 X10*3/uL (1.2-4.9); Mean Corpuscular HGB Conc 33.9 g/dl (31.0-36.0); Mean Corpuscular Hemoglobin 28.8 pg (27.0-33.0); Mean Corpuscular Volume 84.8 fL (80.0-98.0); Mean Platelet Volume 10.4 fL (9.4-12.4); Monocytes Absolute Auto 0.6 X10*3/uL (0.1-1.2); Monocytes Percent Auto 6.3 % (2-11); Neutrophils Absolute Auto 7.7 x10*3/uL (2.0-8.3); Neutrophils Percent Auto 81.4 % (45-73); Platelet Count 233 X10*3/uL (160-400); Red Blood Count 4.48 X10*6/uL (4.60-5.80); Red Cell Distribution Width 12.4 % (11.0-16.0); White Blood Count 9.5 X10*3/uL (4.8-10.8)
--- OUTSIDE RECORDS SUMMARY | 2024-01-10 21:08 | XMS_ITS | Continuity of Care Document ---
Author Organization [facility] Address [address] [place] [address]- Care Team Providers Care Manager Behavioral Name Role Phone Claire Trujillo MD Primary Care Physician [phone] [place]counter [facility] [place] [id number] Date(s): 11/23/23 - 12/23/[address] [address]- Allergies, Adverse Reactions, Alerts Substance Reaction Severity Status metFORMIN 1 GI symptoms Active 1GI intolreance Immunizations Given and Recorded Vaccine Date Status Refusal Reason zoster vaccine, inactivated 1 09/21/23 Recorded tetanus/diphtheria/pertussis, acel(Tdap) 2 09/21/23 Recorded tetanus/diphtheria/pertussis, acel(Tdap) 01/11/17 Given pneumococcal 20-valent conjugate vaccine 3 09/21/23 Recorded SARS-CoV-2 mRNA (vtjtuma-rhvm-whedh) vax 03/03/22 Given SARS-CoV-2 mRNA (fvicwyw-isju-xhtxa) vax 08/27/21 Given SARS-CoV-2 (COVID-19) mRNA BNT-162b2 [...] EDT, Supply Start Date: 05/04/22 Status: Ordered Accu-Chek Josie Plus Test Strips See Instructions, # 30 each, Refills 12, Tot. Refills 12, Maintenance, check bs 2-3 x a day if cgm fails, 12/20/23 12:44:00 EDT, Supply, 165, cm, 12/20/23 11:09:00 EDT, Height, 77, kg, 11/12/23 11:13:00 EDT, Dry Weight Start Date: 12/20/23 Status: Ordered Alcohol Pads See Instructions, # [...] 0 Refills, Maintenance, 11/27/22 11:10:00 EDT, [facility] fill upon patient request if the prescri... Start Date: 11/27/22 Status: Ordered Ankle foot orthostis Ankle foot orthostis, See Instructions, # 1 each, Refills 0, Tot. Refills 0, Maintenance, E11.40 needed for 99 weeks Fax to [facility], 09/24/23 17:56:00 EDT, Supply Start Date: 09/24/23 Status: Ordered aspirin 81 mg oral delayed release tablet 81 mg, 1, tablet, By Mouth, Daily, blood thinner/ hace la leonard mas cullen - para proteger el paty/ arterias tapadas en el paty, # 90 tablet, Refills 3, Tot. Refills 3, Maintenance, 09/09/23 9:59:00 EST, [facility] Pharmacy [facility], [facility]... Start Date: 09/09/23 Stop Date: [...] 05/02/23 16:08:00 EDT, Route to Pharmacy Electronically, [facility], Partial fill upon patient request if the pr... Start Date: 05/02/23 Stop Date: 07/01/23 Status: Ordered docusate sodium 100 mg oral tablet 1 tablet = 100 mg, By Mouth, 2 times a day, PRN for constipation, # 60 tablet, 0 Refills, Maintenance, 11/13/23 13:28:00 EDT, Tablet, [facility]/pharmacy #[id number], Partial fill upon patient request if the prescription is for a schedule II opioid drug., 165, cm,... Start Date: 11/13/23 Status: Ordered famotidine 10 mg oral tablet 1 tablet = 10 mg, By Mouth, 2 times a day, # 180 tablet, 3 Refills, Maintenance, 12/19/23 15:26:00 EDT, Tablet, [facility]/pharmacy #[id number], Partial fill upon patient request if the prescription is for a schedule II opioid drug., 165, cm, 11/21/23 14:15:00 EDT... Start Date: 12/19/23 Stop Date: 12/13/24 Status: Ordered finasteride 5 mg oral tablet = 5 mg, By Mouth, Daily, # 30 tablet, 2 Refills, Maintenance, 12/13/23 12:34:00 EDT, Tablet, [facility]/pharmacy #[id number], Partial fill upon patient request if the prescription is for a schedule II opioid drug., 165, cm, 11/21/23 14:15:00 EDT, Height, 77, kg, 0... Start Date: 12/13/23 Stop Date: 03/12/24 Status: Ordered Flomax 0.4 mg oral capsule 0.8 mg, 2, capsule, By Mouth, Daily, # 180 capsule, Refills 1, Tot. Refills 1, Maintenance, 10/03/23 13:04:00 EDT, Route to Pharmacy Electronically, [facility] [...] Supply, 165,... Start Date: 11/23/22 Status: Ordered glucerna nutritional shake glucerna nutritional shake, See Instructions, # 90 each, Refills 11, Tot. Refills 11, Maintenance, T2DM, abnormal weight loss, adult failure to thrive, 12/11/23 15:52:00 EDT, Supply Start Date: 12/11/23 Status: Ordered Hand Held Shower Head Hand Held Shower Head, See Instructions, # 1 each, Refills 0, Tot. Refills 0, Maintenance, diagnosis: diabetic neuropathy, T1DM. ICD10: E10.42 duration: 99 weeks. Fax to [facility]), 05/11/21 11:23:00 EDT, Supply Start Date: 05/11/21 Status: Ordered Home blood pressure monitor Home blood pressure monitor, See Instructions, # 1 each, Refills 0, Tot. Refills 0, Maintenance, ICD 10 I95.1; E11. 43 ALEIDA: 99 [facility] 12:53:00 EST, Supply Start Date: 05/25/22 Status: Ordered Humalog 100 u/ml subcutaneous injection See Instructions, 50 units a day for the pump - 1,500 units a month and 4,500 90 days , give pt 3 month supply - 5 vials for pump use- needs 15 ml vials - 5 for 90 days supply, # 5 each, 11 Refills, Maintenance, 12/20/23 12:06:00 EDT, [id number] Start Date: 12/20/23 Status: Ordered HumaLOG KwikPen 100 units/mL injectable [...] 09/09/23 9:57:00 EST, Route to Pharmacy Electronically, [facility], Partial fill upon patien... Start Date: 09/09/23 Stop Date: 09/03/24 Status: Ordered Jardiance 25 mg oral tablet 1 tablet = 25 mg, By Mouth, Daily in AM, # 90 tablet, 3 Refills, Maintenance, 09/09/23 9:59:00 EST,[facility], Partial fill upon patient [...] 09/27/24 13:03:00 EDT, 10/03/23 13:03:00 EDT, Injection, [facility], increase in dose, 166, cm, 09/24/23 15:24:00... Start Date: 10/03/23 Stop Date: 09/27/24 Status: Ordered Lantus Solostar Pen 100 units/mL subcutaneous solution = 23 units, Subcutaneous Injection, Daily at bedtime, Insulina de 24 horas., # 15 mL, 1 Refills, Maintenance, 04/26/24 16:08:00 EDT, Injection, [facility], No insurance (Medicare not active until 06/15). [...] 09/09/23 9:57:00 EST, Route to Pharmacy Electronically, [facility]... Start Date: 09/09/23 Stop Date: 09/03/24 Status: Ordered morphine 15 mg/8 to 12 hr oral tablet, extended release 1 tablet = 15 mg, By Mouth, Every 12 hours, # 56 tablet, 0 Refills, Maintenance, 12/17/23 11:36:00 EDT, ER Tablet, [facility]/pharmacy #[id number], Partial fill upon patient request if the prescription is for a schedule II opioid drug. in addition to oxycodone ; o... Start Date: 12/17/23 Stop Date: 01/14/24 Status: Ordered nortriptyline 10 mg oral capsule [...] days, # 112 tablet, 0 Refills, Acute 01/14/24 11:36:00 EDT, 12/17/23 11:36:00 EDT, [facility]/pharmacy #[id number], Partial fill upon patient request ifthe prescription is for a schedule II opioid drug.... Start Date: 12/17/23 Stop Date: 01/14/24 Status: Ordered powerwheel chair powerwheel chair, See Instructions, # 1 each, Refills 0, Tot. 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 99 weeks fax to [facility], 09/24/23 17:56:00 EDT, Supply Start Date: [...] 16:40:00 EDT, sent to [facility]. Start Date: 11/21/21 Status: Ordered shower [...] Active TIA (transient ischemic attack) Confirmed Active Social History Social History Type Response Smoking Status Never (less than 100 in lifetime) entered on: 06/19/19 Sex Patient Care team information Care Team Personnel Name: Sorin Moser RN Position: [facility] RN Member Role: Primary Care Nurse Name: Ya Wilson RN Position: [facility] RN Member Role: Primary Care Nurse Name: Brandi Wei RN Position: [facility] RN Member Role: Primary Care Nurse Name: Valentina Leiva RN Position: [facility] SN RN Member Role: Primary Care Nurse Name: Macarena Bedolla Position: [facility] Outreach Member Role: Lifetime Consulting Physician Name: Abigail Yang RN Position: [facility] Onco RN Member Role: Primary Care Nurse Name: Claire Trujillo MD Position: [facility] Physician - Primary Care Member Role: PCP Address: Address: [address] [place] [id number]- Name: Heidi Dao Position: [facility] RN Member Role: Primary Care Nurse Care Team Related Persons Name: GELACIO JOEL Address: [facility] [address] [place] [id number]
--- OUTSIDE RECORDS SUMMARY | 2024-01-10 21:08 | XMS_ITS | Continuity of Care Document ---
Author Organization [facility] Address [address] [place] [address]- Care Team Providers Care Heavy Coil Winder Name Role Phone Claire Trujillo MD Primary Care Physician [place] [facility] [place]): 11/13/23 - 12/14/[address] [address] Attending Physician: Not on Staff, Attending MD Allergies, Adverse Reactions, Alerts Substance Reaction Severity Status metFORMIN 1 GI symptoms Active 1GI intolreance Immunizations Given and Recorded Vaccine Date Status Refusal Reason zoster vaccine, inactivated 1 09/21/23 Recorded tetanus/diphtheria/pertussis, acel(Tdap) 2 09/21/23 Recorded tetanus/diphtheria/pertussis, acel(Tdap) 01/11/17 Given pneumococcal 20-valent conjugate vaccine 3 09/21/23 Recorded SARS-CoV-2 mRNA (izjrgte-wgsz-lyngc) vax 03/03/22 Given SARS-CoV-2 mRNA (btbfdmi-ozjb-viuid) vax 08/27/21 Given SARS-CoV-2 (COVID-19) mRNA BNT-162b2 [...] 0 Refills, Maintenance, 11/27/22 11:10:00 EDT, Lotion, [facility], Partial fill upon patient request if the prescri... Start Date: 11/27/22 Status: Ordered Ankle foot orthostis Ankle foot orthostis, See Instructions, # 1 each, Refills 0, Tot. Refills 0, Maintenance, E11.40 needed for 99 weeks Fax to [facility], 09/24/23 17:56:00 EDT, Supply Start Date: 09/24/23 Status: Ordered aspirin 81 mg oral delayed release tablet 81 mg, 1, tablet, By Mouth, Daily, blood thinner/ hace la leonard mas cullen - para proteger el paty/ arterias tapadas en el paty, # 90 tablet, Refills 3, Tot. Refills 3, Maintenance, 09/09/23 9:59:00 EST, [facility], [facility] Start Date: 09/09/23 Stop Date: 09/03/24 [...] 05/02/23 16:08:00 EDT, Route to Pharmacy Electronically, [facility], Partial fill upon patient request if the pr... Start Date: 05/02/23 Stop Date: 07/01/23 Status: Ordered docusate sodium 100 mg oral tablet 1 tablet = 100 mg, By Mouth, 2 times a day, PRN for constipation, # 60 tablet, 0 Refills, Maintenance, 11/13/23 13:28:00 EDT, Tablet, [facility]/pharmacy #[id number], Partial fill upon patient request if the prescription is for a schedule II opioid drug., 165, cm,... Start Date: 11/13/23 Status: Ordered famotidine 10 mg oral tablet 1 tablet = 10 mg, By Mouth, 2 times a day, # 60 tablet, 1 Refills, Maintenance, 11/21/23 14:38:00 EDT, Tablet, [facility]/pharmacy #[id number], Partial fill upon patient request if the prescription is for a schedule II opioid drug., 165, cm, 11/21/23 14:15:00 EDT,... Start Date: 11/21/23 Status: Ordered finasteride 5 mg oral tablet = 5 mg, By Mouth, Daily, # 30 tablet, 2 Refills, Maintenance, 12/13/23 12:34:00 EDT, Tablet, [facility]/pharmacy #[id number], Partial fill [...] to Pharmacy Electronically, [facility], Partial fill upon patient request [...] weeks. Fax to [facility], 05/11/21 11:23:00 EDT, Supply Start Date: [...] 09/09/23 9:57:00 EST, [facility], [facility], Partial fill upon patien... Start Date: 09/09/23 Stop Date: 09/03/24 Status: Ordered Jardiance 25 mg oral tablet 1 tablet = 25 mg, By Mouth, Daily in AM, # 90 tablet, 3 Refills, Maintenance, 09/09/23 9:59:00 EST[facility] Partial fill upon patient request if [...] 09/27/24 13:03:00 EDT, 10/03/23 13:03:00 EDT, Injection, [facility] increase in dose, 166, cm, 09/24/23 15:24:00... Start Date: 10/03/23 Stop Date: 09/27/24 Status: Ordered Lantus Solostar Pen 100 units/mL subcutaneous solution = 23 units, Subcutaneous Injection, Daily at bedtime, Insulina de 24 horas., # 15 mL, 1 Refills, Maintenance, 04/26/24 16:08:00 EDT, In[facility], [facility] No insurance (Medicare not active until 06/15). Please dispense via 340B., 165,... Start Date: 04/26/24 Status: Ordered Lipitor 80 mg oral tablet 1 tablet = 80 mg, By Mouth, Daily at bedtime, para colesterol / proteger el paty/ arterias tapadas en el paty, # 90 tablet, 3 Refills, Maintenance, 09/09/23 9:59:00 EST, Tablet, [facility] Partial fill upon patient request, [...] 09/09/23 9:57:00 EST, [facility] Start Date: 09/09/23 Stop Date: 09/03/24 Status: Ordered morphine 15 mg/8 to 12 hr oral tablet, extended release 1 tablet = 15 mg, By Mouth, Every 12 hours, # 56 tablet, 0 Refills, Maintenance, 11/21/23 17:14:00 EDT, ER Tablet, [facility]/pharmacy #[id number], [...] Acute 12/19/23 17:14:00 EDT, 11/21/23 17:14:00 EDT, [facility]/pharmacy #[id number], Partial fill upon patient request ifthe prescription is for a schedule II opioid drug.... Start Date: 11/21/23 Stop Date: 12/19/23 Status: Ordered powerwheel chair powerwheel chair, See Instructions, # 1 each, Refills 0, Tot. 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 99 weeks fax to [facility], 09/24/23 17:56:00 EDT, Supply Start Date: [...] weight: 93kg, 11/21/21 16:40:00 EDT[facility] Start Date: 11/21/21 Status: Ordered shower bars [...] Care Nurse Name: Valentina Leiva RN Position: [facility] RN Member Role: Primary Care Nurse Name: Macarena Bedolla Position: [facility] Outreach Member Role: Lifetime Consulting Physician Name: Abigail Yang RN Position: [facility] Onco RN Member Role: Primary Care Nurse Name: Claire Trujillo MD Position: [facility] Physician - Primary Care Member Role: PCP Address: Address: [address] [place] [id number] Name: Heidi Dao Position: [facility] RN Member Role: Primary Care Nurse Care Team Related Persons Name: JOEL BRIZUELA Address: [facility] [address] [place] [id number]
--- OUTSIDE RECORDS SUMMARY | 2024-01-10 21:08 | XMS_ITS | Continuity of Care Document ---
Author Organization [facility] Address [address] [place] [address]- Care Team Providers Care Allergy And Immunology Chief Name Role Phone Claire Trujillo MD Primary Care Physician [place] [facility] [place] 11/21/23 - 12/21/[address] [address]- Allergies, Adverse Reactions, Alerts Substance Reaction Severity Status metFORMIN 1 GI symptoms Active 1GI intolreance Immunizations Given and Recorded Vaccine Date Status Refusal Reason zoster vaccine, inactivated 1 09/21/23 Recorded tetanus/diphtheria/pertussis, acel(Tdap) 2 09/21/23 Recorded tetanus/diphtheria/pertussis, acel(Tdap) 01/11/17 Given pneumococcal 20-valent conjugate vaccine 3 09/21/23 Recorded SARS-CoV-2 mRNA (ywnuhsr-ukzn-rfobd) vax 03/03/22 Given SARS-CoV-2 mRNA (ecazxmv-jucj-mppio) vax 08/27/21 Given SARS-CoV-2 (COVID-19) mRNA BNT-162b2 [...] Refills, Maintenance, 11/27/22 11:10:00 EDT, [facility] fill upon patient [...] 09/09/23 9:59:00 EST, Route to Pharmacy Electronically, [facility]... Start Date: 09/09/23 Stop Date: [...] 05/02/23 16:08:00 EDT, Route to Pharmacy Electronically, [facility], Partial fill upon patient [...] 3 Refills, Maintenance, 12/19/23 15:26:00 EDT, Tablet, [facility]/pharmacy #[id number], Partial [...] 10/03/23 13:04:00 EDT, Route to Pharmacy Electronically, [facility], Partial fill upon patient request [...] E10.42 duration: 99 weeks. Fax to Cheryl ([facility]), 05/11/21 11:23:00 EDT, Supply Start Date: 05/11/21 Status: Ordered Home blood pressure monitor Home blood pressure monitor, See Instructions, # 1 each, Refills 0, Tot. Refills 0, Maintenance, ICD 10 I95.1; E11. 43 ALEIDA: 99 [facility] 12:53:00 EST, Supply Start [...] each, 11 Refills, Maintenance, 12/20/23 12:06:00 EDT, [facility]/pharmacy #[id number]... Start Date: 12/20/23 Status: Ordered HumaLOG [...] 09/09/23 9:57:00 EST, Route to Pharmacy Electronically, [facility], Partial fill upon patien... Start Date: 09/09/23 Stop Date: 09/03/24 Status: Ordered Jardiance 25 mg oral tablet 1 tablet = 25 mg, By Mouth, Daily in AM, # 90 tablet, 3 Refills, Maintenance, 09/09/23 9:59:00 EST,[facility], Partial fill upon patient request [...] 09/27/24 13:03:00 EDT, 10/03/23 13:03:00 EDT, Injection, [facility] increase in dose, 166, cm, 09/24/23 15:24:00... Start Date: 10/03/23 Stop Date: 09/27/24 Status: Ordered Lantus Solostar Pen 100 units/mL subcutaneous solution = 23 units, Subcutaneous Injection, Daily at bedtime, Insulina de 24 horas., # 15 mL, 1 Refills, Maintenance, 04/26/24 16:08:00 EDT, Injection, [facility], No insurance (Medicare not active until 06/15). Please dispense via 340B., 165,... Start Date: 04/26/24 Status: Ordered Lipitor 80 mg oral tablet 1 tablet = 80 mg, By Mouth, Daily at bedtime, para colesterol / proteger el paty/ arterias tapadas en el paty, # 90 tablet, 3 Refills, Maintenance, 09/09/23 9:59:00 EST, Tablet, [facility]., Partial fill upon patient request, 166,... Start [...] 09/09/23 9:57:00 EST, Route to Pharmacy Electronically, [facility]... Start Date: 09/09/23 Stop Date: 09/03/24 Status: Ordered morphine 15 mg/8 to 12 hr oral tablet, extended release 1 tablet = 15 mg, By Mouth, Every 12 hours, # 56 tablet, 0 Refills, Maintenance, 12/17/23 11:36:00 EDT, ER Tablet, [facility]/pharmacy #[id number], Partial fill upon patient request if the [...] Acute 01/14/24 11:36:00 EDT, 12/17/23 11:36:00 EDT, [facility]/pharmacy #[id number], Partial fill [...] Care Nurse Name: Ya Wilson RN Position: [facility] RN Member Role: Primary Care Nurse Name: Brandi Wei RN Position: [facility] RN Member Role: Primary Care Nurse Name: Valentina Leiva RN Position: [facility] SN RN Member Role: Primary Care Nurse Name: Macarena Bedolla Position: [facility] Outreach Member Role: Lifetime Consulting Physician Name: Abigail Yang RN Position: [facility] Onco RN Member Role: Primary Care Nurse Name: Claire Trujillo MD Position: [facility] Physician - Primary Care Member Role: PCP Address: Address: [address] [place] [address]- Name: Heidi Dao Position: [facility] RN Member Role: Primary Care Nurse Care Team Related Persons Name: GELACIO JOEL Address: [facility] [address] [place] [id number]
--- OUTSIDE RECORDS SUMMARY | 2024-01-10 21:09 | XMS_ITS | Continuity of Care Document ---
Author Organization [facility] Address [address] [place] [address]- Care Team Providers Care Resaw Tailer Name Role Phone Claire Trujillo MD Primary Care Physician [phone] [place] [facility] [place]/[address] [address]- Allergies, Adverse Reactions, Alerts Substance Reaction Severity Status metFORMIN 1 GI symptoms Active 1GI intolreance Immunizations Given and Recorded Vaccine Date Status Refusal Reason zoster vaccine, inactivated 1 09/21/23 Recorded tetanus/diphtheria/pertussis, acel(Tdap) 2 09/21/23 Recorded tetanus/diphtheria/pertussis, acel(Tdap) 01/11/17 Given pneumococcal 20-valent conjugate vaccine 3 09/21/23 Recorded SARS-CoV-2 mRNA (evbxqxb-ultp-gefqx) vax 03/03/22 Given SARS-CoV-2 mRNA (ykdsfgi-llrh-pdzat) vax 08/27/21 Given SARS-CoV-2 (COVID-19) mRNA BNT-162b2 [...] 0 Refills, Maintenance, 11/27/22 11:10:00 EDT, Lotion, [facility], Partial fill upon patient request if the prescri... Start Date: 11/27/22 Status: Ordered Ankle foot orthostis Ankle foot orthostis, See Instructions, # 1 each, Refills 0, Tot. Refills 0, Maintenance, E11.40 needed for 99 weeks Fax to [facility], 09/24/23 17:56:00 EDT, Supply Start Date: 09/24/23 Status: Ordered aspirin 81 mg oral delayed release tablet 81 mg, 1, tablet, By Mouth, Daily, blood thinner/ hace la leonard avileza - para proteger el paty/ arterias tapadas en el paty, # 90 tablet, Refills 3, Tot. Refills 3, Maintenance, 09/09/23 9:59:00 EST, Route to Pharmacy Electronically, [facility]... Start Date: 09/09/23 Stop Date: [...] 05/02/23 16:08:00 EDT, Route to Pharmacy Electronically, [facility], Partial fill upon [...] 10/03/23 13:04:00 EDT, Route to Pharmacy Electronically, [facility], Partial fill upon patient request if [...] E10.42 duration: 99 weeks. Fax to [facility]), 05/11/21 11:23:00 EDT, Supply Start [...] 09/09/23 9:57:00 EST, Route to Pharmacy Electronically, [facility]., Partial fill upon patien... Start Date: 09/09/23 Stop Date: 09/03/24 Status: Ordered Jardiance 25 mg oral tablet 1 tablet = 25 mg, By Mouth, Daily in AM, # 90 tablet, 3 Refills, Maintenance, 09/09/23 9:59:00 EST,[facility] Partial fill upon patient request [...] 09/27/24 13:03:00 EDT, 10/03/23 13:03:00 EDT, Injection, [facility] increase in dose, 166, cm, 09/24/23 15:24:00... Start Date: 10/03/23 Stop Date: 09/27/24 Status: Ordered Lantus Solostar Pen 100 units/mL subcutaneous solution = 23 units, Subcutaneous Injection, Daily at bedtime, Insulina de 24 horas., # 15 mL, 1 Refills, Maintenance, 04/26/24 16:08:00 EDT, Injection, [facility]., No insurance (Medicare not active until 06/15). Please dispense via 340B., 165,... Start Date: 04/26/24 Status: Ordered Lipitor 80 mg oral tablet 1 tablet = 80 mg, By Mouth, Daily at bedtime, para colesterol / proteger el paty/ arterias tapadas en el paty, # 90 tablet, 3 Refills, Maintenance, 09/09/23 9:59:00 EST, Tablet, [facility] Partial fill upon patient request, 166,... [...] 09/09/23 9:57:00 EST, Route to Pharmacy Electronically, [facility] Start Date: 09/09/23 Stop Date: 09/03/24 Status: [...] to navigate safely 99 weeks fax to [facility], 09/24/23 17:56:00 EDT, Supply [...] weight: 93kg, 11/21/21 16:40:00 EDT, [facility] to [facility]. Start Date: 11/21/21 Status: Ordered shower [...] Team Personnel Name: Sorin Moser RN Position: [facility] RN Member Role: Primary Care Nurse Name: Ya Wilson RN Position: S RN Member Role: Primary Care Nurse Name: Brandi Wei RN Position: [facility] RN Member Role: Primary Care Nurse Name: Valentina Leiva RN Position: [facility] RN Member Role: Primary Care Nurse Name: Macarena Bedolla Position: [facility] Outreach Member Role: Lifetime Consulting Physician Name: Abigail Yang RN Position: [facility] Onco RN Member Role: Primary Care Nurse Name: Claire Trujillo MD Position: [facility] Physician - Primary Care Member Role: PCP Address: Address: [address] [place] [id number] Name: Heidi Dao Position: [facility] RN Member Role: Primary Care Nurse Care Team Related Persons Name: JOEL BRIZUELA Address: [facility] [address] [place] [id number]
--- OUTSIDE RECORDS SUMMARY | 2024-01-10 21:09 | XMS_ITS | Continuity of Care Document ---
Author Organization [facility] Address [address] [place] [address]- Care Team Providers Care Kiln Loader Name Role Phone Claire Trujillo MD Primary Care Physician Encounter [facility] [place] Date(s): 11/19/23 - 12/19/[address] [id number] Allergies, Adverse Reactions, Alerts Substance Reaction Severity Status metFORMIN 1 GI symptoms Active 1GI intolreance Immunizations Given and Recorded Vaccine Date Status Refusal Reason zoster vaccine, inactivated 1 09/21/23 Recorded tetanus/diphtheria/pertussis, acel(Tdap) 2 09/21/23 Recorded tetanus/diphtheria/pertussis, acel(Tdap) 01/11/17 Given pneumococcal 20-valent conjugate vaccine 3 09/21/23 Recorded SARS-CoV-2 mRNA ([id number]) vax 03/03/22 Given SARS-CoV-2 mRNA (fvitddi-sqmm-pzssq) vax 08/27/21 Given SARS-CoV-2 (COVID-19) mRNA BNT-162b2 [...] 0 Refills, Maintenance, 11/27/22 11:10:00 EDT, Lotion, [facility], Partial fill upon patient request if the prescri... Start Date: 11/27/22 Status: Ordered Ankle foot orthostis Ankle foot orthostis, See Instructions, # 1 each, Refills 0, Tot. Refills 0, Maintenance, E11.40 needed for 99 weeks Fax to [facility], 09/24/23 17:56:00 EDT, Supply Start Date: 09/24/23 Status: Ordered aspirin 81 mg oral delayed release tablet 81 mg, 1, tablet, By Mouth, Daily, blood thinner/ hace la leonard avileza - para proteger el paty/ arterias tapadas en el paty, # 90 tablet, Refills 3, Tot. Refills 3, Maintenance, 09/09/23 9:59:00 EST, Route to Pharmacy Electronically, [facility]... Start Date: 09/09/23 Stop Date: 09/03/24 [...] 05/02/23 16:08:00 EDT, Route to Pharmacy Electronically, [facility], Partial fill upon patient request if the pr... Start Date: 05/02/23 Stop Date: 07/01/23 Status: Ordered docusate sodium 100 mg oral tablet 1 tablet = 100 mg, By Mouth, 2 times a day, PRN for constipation, # 60 tablet, 0 Refills, Maintenance, 11/13/23 13:28:00 EDT, Tablet, [facility]/pharmacy #[id number], Partial fill upon patient request if the prescription is for a schedule II opioid drug., 165, cm,... Start Date: 11/13/23 Status: Ordered famotidine 10 mg oral tablet 1 tablet = 10 mg, By Mouth, 2 times a day, # 180 tablet, 3 Refills, Maintenance, 12/19/23 15:26:00 EDT, Tablet, [facility]/pharmacy #[id number], Partial fill upon patient request if the prescription is for a schedule II opioid drug., 165, cm, 11/21/23 14:15:00 EDT... Start Date: 12/19/23 Stop Date: 12/13/24 Status: Ordered finasteride 5 mg oral tablet = 5 mg, By Mouth, Daily, # 30 tablet, 2 Refills, Maintenance, 12/13/23 12:34:00 EDT, Tablet, [facility]/pharmacy #[id number], Partial fill upon patient request if the prescription is for a schedule II opioid drug., 165, cm, 11/21/23 14:15:00 EDT, Height, 77, kg, 0... Start Date: 12/13/23 Stop Date: 03/12/24 Status: Ordered Flomax 0.4 mg oral capsule 0.8 mg, 2, capsule, By Mouth, Daily, # 180 capsule, Refills 1, Tot. Refills 1, Maintenance, 10/03/23 13:04:00 EDT, [facility] [...] E10.42 duration: 99 weeks. Fax to [facility], 05/11/21 11:23:00 EDT, Supply Start Date: 05/11/21 Status: Ordered Home blood pressure monitor Home blood pressure monitor, See Instructions, # 1 each, Refills 0, Tot. Refills 0, Maintenance, ICD 10 I95.1; E11. 43 ALEIDA: [facility] 12:53:00 EST, Supply Start Date: [...] 09/09/23 9:57:00 EST, [facility] upon [facility]ien... Start Date: 09/09/23 Stop Date: 09/03/24 Status: Ordered Jardiance 25 mg oral tablet 1 tablet = 25 mg, By Mouth, Daily in AM, # 90 tablet, 3 Refills, Maintenance, 09/09/23 9:59:00 EST[facility] fill upon patient request [...] 09/27/24 13:03:00 EDT, 10/03/23 13:03:00 EDT, Injection, [facility] increase in dose, 166, cm, 09/24/23 15:24:00... Start Date: 10/03/23 Stop Date: 09/27/24 Status: Ordered Lantus Solostar Pen 100 units/mL subcutaneous solution = 23 units, Subcutaneous Injection, Daily at bedtime, Insulina de 24 horas., # 15 mL, 1 Refills, Maintenance, 04/26/24 16:08:00 EDT, [facility] No insurance (Medicare not active until 06/15). Please dispense via 340B., 165,... Start Date: 04/26/24 Status: Ordered Lipitor 80 mg oral tablet 1 tablet = 80 mg, By Mouth, Daily at bedtime, para colesterol / proteger el paty/ arterias tapadas en el paty, # 90 tablet, 3 Refills, Maintenance, 09/09/23 9:59:00 EST, Tablet, [facility] Partial fill upon patient request, [...] 09/09/23 9:57:00 EST, [facility] Start Date: 09/09/23 Stop Date: 09/03/24 Status: Ordered morphine 15 mg/8 to 12 hr oral tablet, extended release 1 tablet = 15 mg, By Mouth, Every 12 hours, # 56 tablet, 0 Refills, Maintenance, 12/17/23 11:36:00 EDT, ER Tablet, [facility]/pharmacy #[id number], Partial fill upon patient [...] Acute 01/14/24 11:36:00 EDT, 12/17/23 11:36:00 EDT, [facility]/pharmacy #[id number], Partial fill upon patient request ifthe prescription is for a schedule II opioid drug.... Start Date: 12/17/23 Stop Date: 01/14/24 Status: Ordered powerwheel chair powerwheel chair, See Instructions, # 1 each, Refills 0, Tot. 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 99 weeks fax to [facility], 09/24/23 17:56:00 EDT, Supply Start [...] weight: 93kg, 11/21/21 16:40:00 EDT[facility]: 11/21/21 Status: Ordered shower [...] Valentina Leiva RN Position: [facility] RN Member Role: Primary Care Nurse Name: Macarena Bedolla Position: [facility] Outreach Member Role: Lifetime Consulting Physician Name: Abigail Yang RN Position: [facility] Onco RN Member Role: Primary Care Nurse Name: Claire Trujillo MD Position: [facility] Physician - Primary Care Member Role: PCP Address: Address: [address] [place] [id number] Name: Heidi Dao Position: [facility] RN Member Role: Primary Care Nurse Care Team Related Persons Name: JOEL BRIZUELA Address: [facility] [address] [place] [id number]
--- OUTSIDE RECORDS SUMMARY | 2024-01-10 21:10 | XMS_ITS | Continuity of Care Document ---
Author Organization [facility] ter Address [address] [place] [id number]- Care Team Providers Care Picking Tech Name Role Phone Claire Trujillo MD Primary Care Physician [phone] Encounter [facility] Date(s): 01/03/24 - 01/04/[address] [id number] Encounter Diagnosis Orthostatic dizziness(Final) - 01/03/24 Discharge Disposition: A-D/C Home Attending Physician: Jaimie Lofton MD Admitting Physician: Sherri Saunders MD Referring Physician: Not on Staff, Referring MD Allergies, Adverse Reactions, Alerts Substance Reaction Severity Status metFORMIN 1 GI symptoms Active 1GI intolreance Immunizations Given and Recorded Vaccine Date Status Refusal Reason zoster vaccine, inactivated 1 09/21/23 Recorded tetanus/diphtheria/pertussis, acel(Tdap) 2 09/21/23 Recorded tetanus/diphtheria/pertussis, acel(Tdap) 01/11/17 Given pneumococcal 20-valent conjugate vaccine 3 09/21/23 Recorded SARS-CoV-2 mRNA (nqjlfjh-[id number]) vax 03/03/22 Given SARS-CoV-2 mRNA ([id number]) vax 08/27/21 Given SARS-CoV-2 (COVID-19) mRNA BNT-162b2 [...] Maintenance, 11/27/22 11:10:00 EDT, [facility] upon patient request if the prescri... Start Date: 11/27/22 Status: Ordered Ankle foot orthostis Ankle foot orthostis, See Instructions, # 1 each, Refills 0, Tot. Refills 0, Maintenance, E11.40 needed for 99 weeks Fax to [facility], 09/24/23 17:56:00 EDT, Supply Start Date: 09/24/23 Status: Ordered aspirin 81 mg oral delayed release tablet 81 mg, 1, tablet, By Mouth, Daily, blood thinner/ hace la leonard mas cullen - para proteger el paty/ arterias tapadas en el paty, # 90 tablet, Refills 3, Tot. Refills 3, Maintenance, 09/09/23 9:59:00 EST, Route to Pharmacy Electronically, [facility]... Start Date: 09/09/23 Stop Date: 09/03/24 Status: [...] Supply Start Date: 03/21/23 Status: Ordered Compression Stockings See Instructions, # 1 each, Maintenance, surgical, knee length 30-40 mm Hg, 01/04/24 12:02:00 EDT, Supply Start Date: 01/04/24 Status: Ordered Compression stockings, thigh-high Compression stockings, [...] 05/02/23 16:08:00 EDT, Route to Pharmacy Electronically, [facility], Partial fill upon patient request if the pr... Start Date: 05/02/23 Stop Date: 07/01/23 Status: Ordered finasteride 5 mg oral tablet = 5 mg, By Mouth, Daily, # 30 tablet, 2 Refills, Maintenance, 12/13/23 12:34:00 EDT, Tablet, [facility]/pharmacy #[id number], Partial fill upon patient request if the prescription is for a schedule II opioid drug., 165, cm, 11/21/23 14:15:00 EDT, Height, 77, kg, 0... Start Date: 12/13/23 Stop Date: 03/12/24 Status: Ordered FreeStyle Vladislav 2 Monitor See [...] Refills 11, Tot. Refills 11, Maintenance, dx: sarcopenia, T1DM ICD10: M62.84, E10.9 duration: 99, 12/28/23 15:02:00 EDT, Supply Start Date: 12/28/23 Status: Ordered glucerna nutritional shake glucerna nutritional [...] E10.42 duration: 99 weeks. Fax to [facility], 05/11/21 11:23:00 EDT, Supply Start Date: 05/11/21 Status: Ordered Heartburn Relief 10 mg oral tablet 1 tablet = 10 mg, By Mouth, 2 times a day, # 180 tablet, 0 Refills, Maintenance, 01/04/24 0:28:00 EDT, Tablet, Partial fill upon patient request if the prescription is for a schedule II opioid drug. Start Date: 01/04/24 Status: Ordered Home blood pressure monitor Home blood pressure monitor, See Instructions, # 1 each, Refills 0, Tot. Refills 0, Maintenance, ICD 10 I95.1; E11. 43 ALEIDA: [facility] 12:53:00 EST, Supply Start Date: [...] each, 11 Refills, Maintenance, 12/20/23 12:06:00 EDT, [facility]/pharmacy #[id number]... Start Date: 12/20/23 Status: Ordered isosorbide mononitrate 30 mg oral tablet, extended release 30 mg, 1, tablet, By Mouth, Daily at bedtime, Para el paty. Noelle antes de acostarse., # 90 tablet, Refills 3, Tot. Refills 3, Maintenance, 09/09/23 9:57:00 EST, Route to Pharmacy Electronically, [facility], Partial fill upon patien... Start Date: 09/09/23 Stop Date: 09/03/24 Status: Ordered Jardiance 25 mg oral tablet 1 tablet = 25 mg, By Mouth, Daily in AM, # 30 tablet, 0 Refills, Maintenance, 01/04/24 0:28:00 EDT,Tablet, Partial fill upon patient request if the prescription is for a schedule II opioid drug. Start Date: 01/04/24 Status: Ordered Lantus Solostar Pen 100 units/mL subcutaneous solution = 23 units, Subcutaneous Injection, Daily at bedtime, Insulina de 24 horas., # 15 mL, 1 Refills, Maintenance, 04/26/24 16:08:00 EDT, Injection, [facility], No insurance (Medicare not active until 06/15). Please dispense via 340B., 165,... Start Date: 04/26/24 Status: Ordered Lipitor 80 mg oral tablet 1 tablet = 80 mg, By Mouth, Daily at bedtime, para colesterol / proteger el paty/ arterias tapadas en el paty, # 90 tablet, 3 Refills, Maintenance, 09/09/23 9:59:00 EST, Tablet, [facility], Partial fill upon patient request, 166,... Start Date: 09/09/23 Stop Date: 09/03/24 Status: Ordered losartan 25 mg oral tablet 12.5 mg, 0.5, tablet, By Mouth, Daily, # 15 tablet, Refills 1, Tot. Refills 1, Maintenance, 12/28/23 14:13:00 EDT, Route to Pharmacy Electronically, [facility], replaces jardiance, 165, cm, 12/25/23 14:57:00 EDT, Height, 77, kg, 11/11/... Start Date: 12/28/23 Stop Date: 02/26/24 Status: Ordered meclizine 12.5 mg oral tablet 1 tablet = 12.5 mg, By Mouth, 3 times a day, PRN for dizziness, for 7 days, # 20 tablet, 0 Refills,Acute 01/11/24 12:00:00 EDT, 01/04/24 12:00:00 EDT, Tablet, [facility], Partial fill upon patient request if the prescription is for a sc... Start Date: 01/04/24 Stop Date: 01/11/24 Status: Ordered medical alert system medical alert [...] 09/09/23 9:57:00 EST, Route to Pharmacy Electronically, [facility] Start Date: 09/09/23 Stop Date: 09/03/24 Status: Ordered midodrine 5 mg oral tablet 2.5 mg, Tablet, By Mouth, 01/04/24 9:00:00 EDT Start Date: 01/04/24 Stop Date: 01/04/24 Status: Completed midodrine 5 mg oral tablet 5 mg, By Mouth, 3 times a day, # 90 tablet, Refills 0, Tot. Refills 0, Maintenance, 01/04/24 11:45:00 EDT, Route to Pharmacy Electronically, [facility], Partial fill upon patient request if the prescription is for a schedule II opioid dr... Start Date: 01/04/24 Stop Date: 02/03/24 Status: Ordered morphine 15 mg/8 to 12 hr oral tablet, extended release 15 mg, CR Tablet, By Mouth, 01/04/24 13:00:00 EDT Start Date: 01/04/24 Stop Date: 01/04/24 Status: Completed morphine 15 mg/8 to 12 hr oral tablet, extended release 1 tablet = 15 mg, By Mouth, Every 12 hours, # 56 tablet, 0 Refills, Maintenance, 12/17/23 11:36:00 EDT, ER Tablet, [facility]/pharmacy #[id number], Partial fill upon patient request [...] Acute 01/14/24 11:36:00 EDT, 12/17/23 11:36:00 EDT, [facility]/pharmacy #[id number], Partial fill upon patient request ifthe prescription is for a schedule II opioid drug.... Start Date: 12/17/23 Stop Date: 01/14/24 Status: Ordered powerwheel chair powerwheel chair, See Instructions, # 1 each, Refills 0, Tot. 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 99 weeks fax to [facility], 09/24/23 17:56:00 EDT, Supply [...] Active TIA (transient ischemic attack) Confirmed Active T1DM (type 1 diabetes mellitus) Confirmed Active Results Radiology Reports * Exam Date Time Procedure Performing Provider Status 01/03/24 3:[address] Angio Neck Rosalind John; Auth (V erified) Notes: (CT Angio Neck) Reason For Exam: Aneurysm, neck vessel(s);Other: RESULT: CT Angio Neck CT Angio Head, CT Angio Neck Hx of Present Illness: weakness lethargy x days worsening today. has necrotic L foot ulcer; Reason:Other:; dizziness, acute, stroke suspected; Clinical Question(s): Other:; Hematoma [...] used to optimize exposure parameters. CTDIvol Body: 13.20 mGy, DLP Body: 415 mGy*cm. CTDIvol Head: 45.70 mGy, DLP Head: 773 mGy*cm. COMPARISON: Noncontrast CT head performed concurrently. CTA Head and Neck 11/12/2023. FINDINGS: CTA OF THE NECK: Arch: There is a three vessel aortic arch. The origins of the supra aortic vessels are patent. Right carotid system: The common carotid and cervical internal carotid arteries are patent. There is calcified atherosclerotic plaque at the carotid bifurcation, but no ICA stenosis (0%) by NASCET criteria. There is no dissection or aneurysm. Left carotid system: The common carotid and cervical internal carotid arteries are patent. No stenosis (0%) by NASCET criteria. There is no dissection or aneurysm. There is a mildly right-dominant vertebral artery system. Right vertebral: No significant stenosis. No evidence of dissection or aneurysm. Left vertebral: No significant stenosis. No evidence of dissection or aneurysm. Other: Soft tissues and bones: No evidence of lymphadenopathy or mass. The thyroid is unremarkable. Visualized lung apices are clear. Mild degenerative changes of the cervical spine are noted, without acuteosseous abnormality. CTA OF THE HEAD: Anterior circulation: Bilateral intracranial ICAs demonstrate trace atherosclerotic calcification, without stenosis. Bilateral FREDI and MCA branches are patent. Right A1 segment is hypoplastic, with widely patent anterior communicating artery, a normal variant. There is no significant stenosis or pro ximal cutoff. A tiny 1.5 mm outpouching from the communicating segment of the left ICA likely reflects a small posterior communicating artery infundibulum, with differential of tiny aneurysm, unchanged. Posterior circulation: Bilateral intracranial vertebral arteries, the basilar artery, and bilateralsuperior cerebellar and posterior cerebral branches are patent, with no proximal cutoff. There is focal moderate stenosis of the left RUSTIC FENCE BUILDER at the P1/P2 junction, with preserved distal flow, unchanged.No other significant stenosis is seen. There is no evidence of aneurysm or vascular malformation. Veins: Major dural venous sinuses are patent. Other: Soft tissues and bones: No midline shift or effacement of the basal cisterns. No space-occupying hemorrhage. No territorial loss of maddox-white matter differentiation. There have been lens extractions bilaterally. There is mild scattered mucosal thickening in the paranasal sinuses without fluid levels. IMPRESSION: 1. No proximal occlusion or new site of stenosis in the major arteries of the head and neck. 2. Unchanged moderate stenosis of the left RUSTIC FENCE BUILDER with preserved distal flow. 3. Unchanged tiny 1.5 mm outpouching from the left ICA, most likely infundibulum of the posterior communicating artery, with differential of a tiny aneurysm as previously described. WSN: [id number] Ordering Physician: Chen Dahl Dictated By: Jesica Gipson MD Dictated Date/Time: 01/03/24 5:13 pm Reviewed By: Jesica Gipson MD Signed By: Jesica Gipson MD Signed Date/Time: 01/03/24 5:13 pm Transcribed By: CRISPIN Transcribed Date/Time: 01/03/24 3:29 pm * Exam Date Time Procedure Performing Provider Status 01/03/24 3:[address] Angio Head Rosalind John; Auth (V erified) Notes: (CT Angio Head) Reason For Exam: dizziness, acute, stroke suspected;Other: RESULT: CT Angio Head CT Angio Head, CT Angio Neck Hx of Present Illness: weakness lethargy x days worsening today. has necrotic L foot ulcer; Reason:Other:; dizziness, acute, stroke suspected; Clinical Question(s): Other:; Hematoma [...] used to optimize exposure parameters. CTDIvol Body: 13.20 mGy, DLP Body: 415 mGy*cm. CTDIvol Head: 45.70 mGy, DLP Head: 773 mGy*cm. COMPARISON: Noncontrast CT head performed concurrently. CTA Head and Neck 11/12/2023. FINDINGS: CTA OF THE NECK: Arch: There is a three vessel aortic arch. The origins of the supra aortic vessels are patent. Right carotid system: The common carotid and cervical internal carotid arteries are patent. There is calcified atherosclerotic plaque at the carotid bifurcation, but no ICA stenosis (0%) by NASCET criteria. There is no dissection or aneurysm. Left carotid system: The common carotid and cervical internal carotid arteries are patent. No stenosis (0%) by NASCET criteria. There is no dissection or aneurysm. There is a mildly right-dominant vertebral artery system. Right vertebral: No significant stenosis. No evidence of dissection or aneurysm. Left vertebral: No significant stenosis. No evidence of dissection or aneurysm. Other: Soft tissues and bones: No evidence of lymphadenopathy or mass. The thyroid is unremarkable. Visualized lung apices are clear. Mild degenerative changes of the cervical spine are noted, without acuteosseous abnormality. CTA OF THE HEAD: Anterior circulation: Bilateral intracranial ICAs demonstrate trace atherosclerotic calcification, without stenosis. Bilateral FREDI and MCA branches are patent. Right A1 segment is hypoplastic, with widely patent anterior communicating artery, a normal variant. There is no significant stenosis or pro ximal cutoff. A tiny 1.5 mm outpouching from the communicating segment of the left ICA likely reflects a small posterior communicating artery infundibulum, with differential of tiny aneurysm, unchanged. Posterior circulation: Bilateral intracranial vertebral arteries, the basilar artery, and bilateralsuperior cerebellar and posterior cerebral branches are patent, with no proximal cutoff. There is focal moderate stenosis of the left RUSTIC FENCE BUILDER at the P1/P2 junction, with preserved distal flow, unchanged.No other significant stenosis is seen. There is no evidence of aneurysm or vascular malformation. Veins: Major dural venous sinuses are patent. Other: Soft tissues and bones: No midline shift or effacement of the basal cisterns. No space-occupying hemorrhage. No territorial loss of maddox-white matter differentiation. There have been lens extractions bilaterally. There is mild scattered mucosal thickening in the paranasal sinuses without fluid levels. IMPRESSION: 1. No proximal occlusion or new site of stenosis in the major arteries of the head and neck. 2. Unchanged moderate stenosis of the left RUSTIC FENCE BUILDER with preserved distal flow. 3. Unchanged tiny 1.5 mm outpouching from the left ICA, most likely infundibulum of the posterior communicating artery, with differential of a tiny aneurysm as previously described. WSN: [id number] Ordering Physician: Chen Dahl Dictated By: Jesica Gipson MD Dictated Date/Time: 01/03/24 5:13 pm Reviewed By: Jesica Gipson MD Signed By: Jesica Gipson MD Signed Date/Time: 01/03/24 5:13 pm Transcribed By: CRISPIN Transcribed Date/Time: 01/03/24 3:29 pm * Exam Date Time Procedure Performing Provider Status 01/03/24 3:[address] Head/Brain W/O Contrast Oscar John; Auth (Verified) Notes: (CT Head/Brain W/O Contrast) Reason For Exam: dizziness, acute, stroke suspected;Other: RESULT: CT Head/Brain W/O Contrast CT Head/Brain W/O Contrast CLINICAL INDICATION: Weakness. Dizziness. Lethargy. Concern of infarct.. PRIOR EXAMS: 11/11/2023. TECHNIQUE: Head CT was performed without intravenous contrast, using axial technique and reconstructed in axial and coronal plane. Iterative reconstruction techniques are used to optimize dose and image quality. FINDINGS: BRAIN: There is no infarct. There is no intracerebral hemorrhage. There is no mass. VENTRICLES, SULCI, AND CISTERNS: The ventricles and sulci are symmetrical and normal. WHITE MATTER: No white matter abnormality. EXTRA AXIAL SPACES: There is no abnormal epidural, subdural, or subarachnoid blood or fluid. SKULL: There is no skull fracture.. PARANASAL SINUSES: Clear. TEMPORAL BONES: The mastoid air cells are clear, as are the middle ear cavities. IMPRESSION: 1. No acute intracranial abnormality. 2. No skull fracture. WSN: [id number] Ordering Physician: Chen Dahl Dictated By: Kristian Reynolds MD Dictated Date/Time: 01/03/24 3:16 pm Reviewed By: Kristian Reynolds MD Signed By: Kristian Reynolds MD Signed Date/Time: 01/03/24 3:16 pm Transcribed By: CRISPIN Transcribed Date/Time: 01/03/24 3:12 pm * Exam Date Time Procedure Performing Provider Status 01/03/24 2:53 PM Chest 2 Views Frontal and Lat Amber Silver (Verified) Notes: (Chest 2 Views Frontal and Lat) Reason For Exam: Shortness of Breath, Fever;Other: RESULT: Chest 2 Views Frontal and Lat Chest 2 Views Frontal and Lat HX OF PRESENT ILLNESS: weakness lethergy x days worsening today. has necrotic L foot ulcer; Reason:Shortness of Breath, Fever; Clinical Question(s): Pneumonia COMPARISON: Multiple priors, most recent from 11/03/2023. FINDINGS: LINES AND TUBES: None. LUNGS AND PLEURA: Clear lungs. Normal pulmonary vascularity. No pleural effusion. No pneumothorax. HEART, MEDIASTINUM AND JESUS: Heart is normal in size. Normal mediastinal and hilar contour. BONES AND SOFT TISSUES: No acute abnormality. Mild degenerative changes of the bilateral shoulder joints. Probable transdermal patch along the right upper arm, seen on the lateral view. Probable glucosamine measuring device. IMPRESSION: No parenchymal consolidation or CHF. I have personally reviewed the images and I agree with this report. WSN: [id number] Ordering Physician: Chen Dahl Dictated By: Leticia Melendrez MD Dictated Date/Time: 01/03/24 3:02 pm Reviewed By: Ricky Raines MD, V Signed By: Ricky Raines MD, V Signed Date/Time: 01/03/24 3:07 pm Transcribed By: CRISPIN Transcribed Date/Time: 01/03/24 2:58 pm Vital Signs Most recent to oldest [Reference Range]: 1 2 3 Height 166 cm (01/04/24 10:24 AM) 166 cm (01/04/24 8:38 AM) 166 cm (01/04/24 8:07 AM) Weight 72.2 kg (01/03/24 9:37 PM) Oxygen Saturation [94-100 %] 100 % (01/04/24 10:24 AM) 100 % (01/04/24 8:07 AM) 98 % (01/04/24 4:10 AM) Pulse Rate [55-90 bpm] 71 bpm (01/04/24 10:24 AM) 68 bpm (01/04/24 8:09 AM) 68 bpm (01/04/24 8:07 AM) Body Mass Index [18.5-24.99 kg/m2] 26.2 kg/m2 *H* (01/03/24 9:37 PM) Blood Pressure [90-138/55-84 mm Hg] 142/66mm Hg *H* (01/04/24 10:24 AM) 139/80mm Hg *H* (01/04/24 8:09 AM) 139/80mm Hg *H* (01/04/24 8:07 AM) Respiratory Rate [16-30 br/min] 18 br/min (01/04/24 1:28 PM) 18 br/min (01/04/24 10:24 AM) 18 br/min (01/04/24 8:07 AM) Temperature [96.8-100.4 DegF] 98.2 DegF (01/04/24 10:24 AM) 98.4 DegF (01/04/24 8:07 AM) 97.7 DegF (01/04/24 4:10 AM) Mode of Delivery (Oxygen) Room air (01/04/24 10:24 AM) Room air (01/04/24 8:07 AM) Room air (01/04/24 4:10 AM) Blood pressure sites Arm, left (01/04/24 10:24 AM) Arm, right (01/04/24 8:07 AM) Arm, left (01/04/24 4:10 AM) Temperature Route Oral (01/04/24 10:24 AM) Oral (01/04/24 8:07 AM) Oral (01/04/24 4:10 AM) Dry Weight 72.2 kg (01/03/24 9:37 PM) Weight Obtained Via Bed scale (01/03/24 9:37 PM) Social History Social History Type Response Smoking Status Never (less than 100 in lifetime) entered on: 06/19/19 Sex Admission evaluation note * Nicky WHITE, Sherri Thompson: PERFORM, MODIFY Event Display: Admission Note Authored Date: Patient: ??PARIS ROJO ? Age:??63 Years?Sex:??Male?:??1960?? Chief Complaint/Reason for Consultation woke up this am more lethargic. has a necrotic L foot wound that he is followed here, however couldnt get an appt so went to [facility] and they wrapped it and sent home. History of Present Illness 63-year-old male patient who presents today to emergency department for evaluation of dizziness. He has a past medical history of coronary artery disease complicated by myocardial infarction, essential hypertension, dyslipidemia, history of TIA, insulin-dependent diabetes mellitus type 1, generalized anxiety disorder, ischemic cardiomyopathy, neuropathy, severe orthostatic hypotension causing r ecurrent falls.?? He reported postural dizziness which was described as room spinning when he stoodup, associated with nausea.?? He denies vomiting, presyncope, palpitation, syncope or falls.?? Uponpresentation to the emergency department, blood pressure was 130/64, afebrile, maintaining saturation on 100% on room air initial blood work was fairly stable without abnormalities high- sensitivity troponin was 28 but remained flat.?? Chest x-ray was obtained, reviewed by myself without any abnormalities.?? Patient had a CT scan of the head without any abnormalities.?? CT angio head/neck without large vessel occlusion or stenosis of the major arteries of the head or neck, unchanged moderate stenosis of the left RUSTIC FENCE BUILDER with preserved distal flow, unchanged tiny 1.5 mm outpouching from the left ICA, most likely infundibulum of the posterior communicating artery.?? EKG was obtained, reviewed by myself with normal sinus rhythm with premature supraventricular complexes, chest x-ray, block with T wave inversion in V3 to V6 (I personally viewed prior EKG similar to prior infections noted) patientwas given 1 L bolus in the emergency department.?? Patient was still orthostatic with dizziness after the fluid therefore, was admitted under medicine.?? Open admission to the medical floor asked fororthostatic vitals which was profoundly positive with approximately 57 points drop in systolic blood pressure with a change in the position.?? I have ordered another small bolus.?? Upon my evaluation, he was lying comfortably in bed without any signs of distress Review of Systems A full review of systems was completed and is otherwise negative except as mentioned in history of present illness. Objective Measurements?? Height: 166 cm (01/03/24) ?? Vital Signs?? Temperature: 98.9 DegF (01/03/24 17:58:00) Temperature Route: Oral (01/03/24 17:58:00) Pulse Rate: 83 bpm (01/03/24 17:58:00) Pulse Rate, Lyin bpm (01/03/24 15:57:00) Systolic Blood Pressure, Lyin mm Hg (01/03/24 15:57:00) Diastolic Blood Pressure, Lyin mm Hg (01/03/24 15:57:00) Pulse Rate, Sittin bpm (01/03/24 15:57:00) Systolic Blood Pressure, Sittin mm Hg (01/03/24 15:57:00) Diastolic Blood Pressure, Sittin mm Hg (01/03/24 15:57:00) Pulse Rate, Standin bpm (01/03/24 15:57:00) Systolic Blood Pressure, Standin mm Hg (01/03/24 15:57:00) Diastolic Blood Pressure, Standin mm Hg (01/03/24 15:57:00) Respiratory Rate: 18 br/min (01/03/24 17:58:00) Systolic Blood Pressure: 126 mm Hg (01/03/24 17:58:00) Diastolic Blood Pressure: 65 mm Hg (01/03/24 17:58:00) Blood pressure sites: Arm, right (01/03/24 17:58:00) Mean Arterial Pressure: 85 mm Hg (01/03/24 17:58:00) Pulse Pressure: 61 mm Hg (01/03/24 17:58:00) Oxygen Saturation: 100 % (01/03/24 17:58:00) Mode of Delivery (Oxygen): Room air (01/03/24 17:58:00) Early Warning Score: 0 (01/03/24 20:09:03) ? Intake/Output? No Data Available ? Physical Exam General Appearance: The patient is in NAD. Head: atraumatic EENT: MMM, no scleral icterus Cardiovascular: RRR no MRG Respiratory:?? Breath sounds clear to auscultation bilaterally. No wheezing. room air. GI: Soft. Nontender and nondistended. Normal bowel sounds present throughout abdomen. MS:?? No edema or erythema in the lower extremities. Peripheral sensation intact. Skin: warm, dry, no rashes Neuro:?? No slurred speech.?? Patient seen moving their upper and lower extremities independently. Psych: calm Lines: Peripheral IV in place. Assessment/Plan Diagnoses BPH (benign prostatic hyperplasia) ??(N40.0) Chronic pain syndrome ??(G89.4) Coronary artery disease ??(I25.10) Diabetes mellitus ??(E11.9) Dizziness ??(R42) Dyslipidemia ??(E78.5) Essential hypertension ??(I10) OSMAR (generalized anxiety disorder) ??(F41.1) Ischemic cardiomyopathy ??(I25.5) Mood disorder ??(F39) Orthostatic dizziness ??(R42) Orthostatic hypotension ??(I95.1) ? Orthostatic hypotension (I95.1) ?Grouped with??Orthostatic dizziness (R42),??Dizziness (R42) ? patient presents to the hospital with clearly symptomatic symptoms??in the setting of soft blood pressure reading with profound??orthostatic vitals??upon arrival to the facility Head CT scan and CT angio head/neck without any??acute abnormalities. S/p fluids. Was admitted under observation due to persistent orthostatic vitals. Encourage p.o.??hydration. Add midodrine??and potentially??Florinef.??However unfortunately??they are not??preferred??in the setting of??coronary artery disease. Compression stockings. Counseling was provided orthostatic??hypotension to position slowly. Obtain TSH and morning cortisol. hold Immdur? Chronic pain syndrome (G89.4):??Resume??home medications ?? Diabetes mellitus (E11.9):??On insulin pump which has not??supplies. Resume Lantus and add sliding scale coverage. Continue to monitor gikxg-uf-dtkz glucose 3 times at the bedtime. Hypoglycemia protocol. ?? Dyslipidemia (E78.5):??Resume statin ?? Mood disorder (F39) ?Grouped with??OSMAR (generalized anxiety disorder) (F41.1) ? Continue nortriptyline ?? Ischemic cardiomyopathy (I25.5):??History of ischemic cardiomyopathy History limited. ?? Essential hypertension (I10):??Continue metoprolol with holding parameters and hold Imdur ?? 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 Continue aspirin and??statins. ? BPH (benign prostatic hyperplasia) (N40.0):??resume??Flomax and finasteride ?? VTE Prophylaxis:??Lovenox ?VTE Prophylaxis Assessment:??VTE Prophylaxis Ordered ?? Discharge Planning:? Code Status:??Full code ?Order Code Status:??Code Status Ordered ? [...] hypotension - severe, resulting in recurrent falls T1DM (type 1 diabetes mellitus) Thrombocytopenia TIA (transient ischemic attack) [...] el paty/ arterias tapadas en el paty Clopidogrel (clopidogrel 75 mg oral tablet)?75?Milligram?1?tablet?By Mouth?Daily Docusate (docusate sodium 100 mg oral capsule)?100?Milligram?1?capsule?By Mouth?2times a day?as needed?for 30?Days?for constipation Docusate (docusate sodium 100 mg oral tablet)?1?tab(s)?100?Milligram?By Mouth?2 times a day?as needed?for constipation Durable Medical Equipment (shower chair)?See Instructions?diagnosis: diabetic neuropathy, [id number]: E10.42duration: 99 weeks Durable Medical Equipment (toilet seat)?See Instructions?to reduce risk of fallsdx: diabetic nfjwglbppkHNL60: E11.40duration: 52 weeks Durable Medical Equipment (walker with wheels and brakes)?See Instructions?dx: diabetic neuropathy, J7ATKKH87: E10.42duration: 99 weeks Durable Medical Equipment (shower bars)?See Instructions?dx: T1DM with severe eljbjtydsxKSN95: E10.40duration: 52 weeks Durable Medical Equipment (blood pressure cuff)?See Instructions?as needed?Pain , Mild?for medication titrationdx: essential zwtlcawpixvaVXG01: A31ftxvbhrb: 52 weeks Durable Medical Equipment (rollator walker w/ 4 wheels, seat and brakes)?See Instructions?dx:diabetes with kkunrwdtqzQKD88: E11.40duration: 99 weeksheight: 164cmweight: 93kg Durable Medical Equipment (disinfectant wipes)?See Instructions?dx: incontinence, E7GQOQV61: N31.9duration: 99 Durable Medical Equipment (Compression stockings, [...] system)?See Instructions?dx: T2DM with severe neuropathy, frequent uhwrlVUG64: E11.40duration: 99 Durable Medical Equipment (Home blood pressure monitor)?See Instructions?ICD 10 I95.1; E11. 43LON: 99Bring rx to [facility] Durable Medical Equipment (raised toilet seat)?See Instructions?dx: autonomic neuropathy, frequent toxeoCME55: G99.0duration: 99 Durable Medical Equipment (shower chair)?See Instructions?dx: autonomic neuropathy, frequent brmlmTLL99: G99.0duration: 99 Durable Medical Equipment (FreeStyle Vladislav 2 Monitor)?See [...] Equipment (box adult wipes)?See Instructions?dx: fecal incontinence, A4WEEDU17: J86nbdmowok: 99 Durable Medical Equipment (Freestyle Lite Monitor)?See Instructions?to test blood sugar up to4 times per daydx: O0CHAVZ63: E11.6duration: 99 Durable Medical Equipment (cane with arm rest)?See Instructions?dx: T2DM with severe iqflredzawkyuvbekfIUK58: E11.40duration: 99 Durable Medical Equipment (2 boxes size large adult gloves)?See Instructions?dx: diabetic neuropathy, bqoiwmfqnldaSFI52: E11.40duration: 99 Durable Medical Equipment (surgical masks)?See Instructions?for infection controldx: T2DM with severe wjiknemjqxKCK01: E11.40duration: 99 Durable Medical Equipment (Alcohol Pads)?See Instructions?To test 3 times a day and with symptomsDx: M7ORNKB80: E11.9duration: 52 weeks Durable Medical Equipment (Ankle foot orthostis)?See Instructions?E11.40needed for [facility] Durable Medical Equipment (powerwheel chair)?See Instructions?11.40severe advanced DM neuropathyneeded to navigate ruqpkj39 weeksfax to [facility] Durable Medical Equipment (bed liners)?See Instructions?dx: incontinence, Z2KHkgd85: N31.9duration: 99 weeks Durable Medical Equipment (pullups - adult size medium)?See Instructions?dx: incontinence, M6IRbyq42: N31.9duration: 99 weeksnote size change Durable Medical Equipment (FreeStyle Vladislav 2 Sensors)?See Instructions?apply one sensor every14 days; check glucose qid;E11.65 Durable Medical Equipment (glucerna nutritional shake)?See Instructions?T2DM, abnormal weightloss, adult failure to thrive Durable Medical Equipment (Accu-Chek Josie Plus Test Strips)?See Instructions?check bs 2-3 x a day if cgm fails Durable Medical Equipment (glucerna nutritional shake)?See Instructions?dx: sarcopenia, L8YSFOY79: M62.84, E10.9duration: 99 Famotidine (famotidine 10 mg oral tablet)?1?tab(s)?10?Milligram?By Mouth?2 times a day?for 90?Days Finasteride (finasteride 5 mg oral tablet)?5?Milligram?By Mouth?Daily?for 30?Days Insulin Glargine (Lantus Solostar Pen 100 units/mL subcutaneous solution)?23?unit(s)?Subcutaneous Injection?Daily at bedtime?Insulina de 24 horas. Insulin Glargine (Lantus Solostar Pen 100 units/mL subcutaneous solution)?23?unit(s)?Subcutaneous Injection?Daily at bedtime?for 30?Days?Insulina de 24 horas. Insulin Lispro (Humalog 100 u/ml subcutaneous injection)?See Instructions?50 units a day for the pump - 1,500 units a month and 4,500 90 days , give pt 3 month supply - 5 vials for pump use- needs 15 ml vials - 5 for 90 days supply Insulin Lispro (HumaLOG KwikPen 100 units/mL injectable solution)?See Instructions?Mealtime insulin; dose according to finger stick before meals FS 100-199: 5 units FS: 200-249: 6 units FS 250-299: 7 units FS above 300: 8 unitstotal daily short acting insulin dose 30 units Isosorbide Mononitrate (isosorbide mononitrate 30 mg oral tablet, extended release)?30?Milligram?1?tablet?By Mouth?Daily at bedtime?for 90?Days?Para el paty. ??Noelle antes de acostarse. Losartan (losartan 25 mg oral tablet)?12.5?Milligram?0.5?tablet?By Mouth?Daily?for 30?Days Metoprolol (metoprolol 50 mg oral tablet, extended release)?50?Milligram?1?tablet?ByMouth?Daily at bedtime?for 90?Days?para proteger el paty/ prevenir palpitacionesBebaantes de acostarse. Miscellaneous Rx (Hand Held Shower Head)?See Instructions?diagnosis: diabetic neuropathy, T1DM. ICD10: E10.42duration: 99 weeks. Fax to [facility] ([facility]) Miscellaneous Rx (one pair Diabetic Shoes [...] Recent Labs BLOOD COUNT & DIFF WBC 7.1 k/mm3 ()?? 01/03/2024 13:38 RBC 4.40 m/mm3 (Low)?? 01/03/2024 13:38 Hgb 12.9 Gm/dL (Low)?? 01/03/2024 13:38 Hct 38.3 % (Low)?? 01/03/2024 13:38 MCV 87.0 femtoliters ()?? 01/03/2024 13:38 MCH 29.3 pg ()?? 01/03/2024 13:38 MCHC 33.7 g/dL ()?? 01/03/2024 13:38 Platelet Count 180 k/mm3 ()?? 01/03/2024 13:38 RDW-SD 40.7 femtoliters ()?? 01/03/2024 13:38 MPV 10.8 femtoliters ()?? 01/03/2024 13:38 Nucleated RBC (Automated) 0.0 #/100 WBC'S ()?? 01/03/2024 13:38 Abs. NRBC 0.0 k/mm3 ()?? 01/03/2024 13:38 Abs. Neut 5.3 k/mm3 ()?? 01/03/2024 13:38 Abs. Lymph 1.1 k/mm3 ()?? 01/03/2024 13:38 Abs. [place] 0.5 k/mm3 ()?? 01/03/2024 13:38 Abs. Eo 0.1 k/mm3 ()?? 01/03/2024 13:38 Abs. Baso 0.0 k/mm3 ()?? 01/03/2024 13:38 Neut % 74.5 % ()?? 01/03/2024 13:38 Lymph % 16.1 % ()?? 01/03/2024 13:38 [place] % 6.9 % ()?? 01/03/2024 13:38 Eos % 1.8 % ()?? 01/03/2024 13:38 Baso % 0.1 % ()?? 01/03/2024 13:38 Imm Gran 0.6 % ()?? 01/03/2024 13:38 Abs. Imm Gran 0.0 k/mm3 ()?? 01/03/2024 13:38 ?? CHEM GENERAL Sodium 137 mmol/L ()?? 01/03/2024 13:38 Potassium 4.2 mmol/L ()?? 01/03/2024 13:38 Chloride 98 mmol/L ()?? 01/03/2024 13:38 Bicarbonate Level 29 mmol/L ()?? 01/03/2024 13:38 Anion Gap 10 ()?? 01/03/2024 13:38 Glucose Level 168 mg/dL (High)?? 01/03/2024 13:38 BUN 11 mg/dL ()?? 01/03/2024 13:38 Creatinine-Blood 0.68 mg/dL (Low)?? 01/03/2024 13:38 Estimated GFR Creatinine 103 ML/MIN/1.73 M2 ()?? 01/03/2024 13:38 Calcium 8.5 mg/dL (Low)?? 01/03/2024 13:38 ?? ENDOCRINE/TUMOR MARKER TSH 1.64 uIU/mL ()?? 01/03/2024 13:38 ?? LIPID STUDIES Cholesterol 140 mg/dL ()?? 01/03/2024 13:38 Triglycerides 68 mg/dL ()?? 01/03/2024 13:38 HDL Cholesterol 44 mg/dL ()?? 01/03/2024 13:38 LDL Cholesterol 82 mg/dL ()?? 01/03/2024 13:38 Non HDL Cholesterol 96 mg/dL ()?? 01/03/2024 13:38 ? EKG study * Event Display: ECG 12-Lead Authored Date: Please click on pdf link to open report * Event Display: ECG 12-Lead Authored Date: Ventricular Rate: 65 BPM Atrial Rate: 65 BPM P-R Interval: 138 ms QRS Duration: 84 ms Q-T Interval: 400 ms QTC Calculation(Bazett): 416 ms P [place]: 21 degrees R [place]: -49 degrees T [place]: 104 degrees Sinus rhythm with Premature atrial complexes Left anterior fascicular block Anteroseptal infarct (cited on or before 19-JUN-2019) T wave abnormality, consider lateral ischemia Abnormal ECG When compared with ECG of 12-NOV-2023 16:11, Premature atrial complexes are now Present Left anterior fascicular block is now Present T wave inversion less evident in Anterior leads Confirmed by Siddhartha Llanos ([id number]) on 01/03/2024 2:06:54 PM [place]: Siddhartha Llanos Cardiology * Event Display: Cardiac Rhythm Strips Authored Date: Hospital Progress note * Rafa EPPERSON, Brigette: PERFORM, MODIFY, MODIFY, MODIFY, MODIFY, MODIFY, MODIFY, SIGN, VERIFY Event Display: Progress Note Hospital Authored Date: Patient: PARIS ROJO Age: 63 years Sex: Male : 1960 Associated Diagnoses: None Author: Rafa EPPERSON, Brigette Findings Nursing Data Cardiac Data. : Cardiac Data. 01/03/2024 21:00 EDT Cardiovascular Symptoms None Nail Bed Color, Fingers [place] Skin Temperature Upper Extremities Warm Skin Temperature Lower Extremities Warm Heart Sounds S1, S2 Capillary Refill < 3 seconds Dorsalis Pedis Pulse, Left Normal Dorsalis Pedis Pulse, Right Normal Cardiovascular WNL except . Respiratory/Pulmonary Data. 01/03/2024 23:45 EDT Respiratory Treatment(s) Cough and deep breathe 01/03/2024 23:00 EDT Respiratory Assessment Status Unchanged from recorder's assessment 01/03/2024 21:34 EDT Mode of Delivery (Oxygen) Room air 01/03/2024 21:00 EDT Respiratory Symptoms None Respiratory effort Unlabored Cough No cough Respiratory pattern Regular All Lobes Breath Sounds Clear Respiratory Treatment(s) Cough and deep breathe Respiratory WNL except . Vital Signs : VITAL SIGNS SECTION 01/03/2024 22:00 EDT Respiratory Rate 16 br/min 01/03/2024 21:35 EDT Early Warning Score 0.00 01/03/2024 21:34 EDT Temperature 98.4 DegF Temperature Route Oral Pulse Rate, Lying 72 bpm Systolic Blood Pressure, Lying 147 mm Hg Diastolic Blood Pressure, Lying 84 mm Hg Pulse Rate, Sitting 71 bpm Systolic Blood Pressure, Sitting 124 mm Hg Diastolic Blood Pressure, Sitting 64 mm Hg Pulse Rate, Standing 76 bpm Systolic Blood Pressure, Standing 90 mm Hg Diastolic Blood Pressure, Standing 45 mm Hg Respiratory Rate 18 br/min Oxygen Saturation 99 % Mode of Delivery (Oxygen) Room air . Narrative/Incidental Assumed care of patient at 1830, pt a/ox4, endorses continued dizziness, unsteady gait with walker,following commands appropriately, afebrile, VS wnl. Orthostatic BPs completed and positive, paged out to covering provider, Dr. Saunders, new orders received for LR bolus. Respirations even and unlabored on room, pt denies sob. Pt OOB with one assist, educated to call for assistance prior to getting OOB. Pt denies NVD, tolerating po intake without difficulty. Pt denies dysuria, voiding in urinal concentrated yellow urine. Educated patient on plan of care and call gallegos use, fall risk precautions inplace, call gallegos within reach, hourly rounding maintained. See CIS for full assessment data and flow sheets, will continue monitoring as needed. . Consult note * Aldo WHITE, [facility]: PERFORM, MODIFY, MODIFY, MODIFY, MODIFY Event Display: Consultation Note Authored Date: Patient: ??PARIS ROJO ? Age:??63 Years?Sex:??Male?:??1960?? Indication for Consult woke up this am more lethargic. has a necrotic L foot wound that he is followed here, however couldnt get an appt so went to [facility] and they wrapped it and sent home. Requesting physician: Dr. Lofton Consulting physician: Dr. Lema Reason for consult: Orthostatic hypotension Outpatient independent jeweler: Jared Llanos NP History of Present Illness/Interval History 63-year-old Cymraes-speaking??male patient with PMHx of HTN, HLD, DM with neuropathy, TIA, CAD and nonischemic cardiomyopathy presenting with dizziness ?? HPI: Patient was last seen by cardiology in September of this year where he continued to complain of intermittent chest pain 2-3 times per week that is mostly at rest lasting between 15 to 30 minutes.?? Plan was to obtain a regadenoson nuclear stress test.?? Patient was also significantly orthostatic with dizziness but due to soft blood pressures, patient was maintained on same medical therapy without adjustment.?? Patient was previously on midodrine but taken off as it did not help.?? Consideration of Florinef in the future. ?? Patient presented to the ED complaining of postural dizziness described as room spinning when he stands up associated with nausea but no vomiting, palpitations or loss of consciousness. ?? In the ED, patient blood pressure was stable and his troponins were negative.?? 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 Patient was given 1 L IV fluids in the ED.?? Patient was still orthostatic with dizziness after the fluids and therefore admitted under medicine.?? On the medical floor, patient was still profoundly positive with a 57 point drop in SBP with standing.?? Medical team have added midodrine 5 mg 3 times daily. ?? Lying blood pressure 137/68 Sitting blood pressure 152/80 Standing blood pressure 85/48 Of note,??I had the patient stand up??quickly??and he had no orthostatic symptoms. ?? On my encounter, patient is laying comfortably in bed. ??Patient??has a long history of recurrent falls??and orthostatic symptoms.?? Patient reports that yesterday he had a different complaint??whichis new and distinct from his previous complaints. ??Patient was laying down in bed??when he felt very dizzy, reported feeling the room spinning like he was falling into a hole??so he called his .??His symptoms were not orthostatic.?? He also reports??having ear pain in both ears for the past 3weeks. ?? Pertinent labs: CBC unremarkable.?? BMP unremarkable, creatinine 0.68.?? High- sensitivity troponin negative x 4. Pertinent home meds: Aspirin 81, atorvastatin 80, Plavix 75, Imdur 30, losartan 12.5, metoprolol ER50. Pertinent inpatient meds: Plavix has been discontinued.?? Losartan has been discontinued.?? Patientstarted on midodrine 5 mg 3 times daily. ?? Chest x-ray: No acute abnormality. EK01/03/2024: Sinus rhythm with PAC, left axis deviation, anteroseptal Q waves, anterolateral nonspecific T wave abnormalities. TTE 04/20/2022 EF 40-45%.?? Severe hypokinesis of the mid to distal anteroseptal wall and the distalinferoseptal and anterior pulido.?? Akinetic apex.?? Dilated left atrium.?? No significant valvular abnormalities.?? Normal RV size and function.?? 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 Small distal LAD diffusely diseased.?? Mild diffuse LCx disease.?? Moderate diffuse RCA disease. Repeat cath 2020 showed no progression of disease. Stress test 2019 for persistent chest pain demonstrated scar but no reversible ischemia. Review of Systems Constitutional, Eye, Skin, Head/Neck, ENMT, Respiratory, Cardiovascular, Gastrointestinal, Endocrine, Musculoskeletal, Neurologic, Psych reviewed and negative except as noted in HPI Physical Exam Vitals & Measurements T:??98.4?F?? HR:??68??(Peripheral)?? RR:??18?? BP:??139/80?? SpO2:??100%?? HT:??166??cm?? WT:??72.2??kg?? BMI:??26.2?? Weight lb/oz: 159 lb 3 oz General:??No apparent distress, appears stated age. HEENT:??NCAT, EOMI, Sclera are anicteric. Moist oral mucosa. Neck:??Supple, No lymphadenopathy. No JVD noted. Cardiovascular:??Regular rate and rhythm, normal S1, S2. No S3 or S4 heard. No appreciable murmurs/gallops or rubs. No carotid bruits noted. Palpable peripheral upper and lower extremity pulses noted. Respiratory:??Clear to auscultation bilaterally without wheezes, rales or rhonchi. Abdomen:??Soft, nontender, non-distended, no abnormal BS, no HSM.?? Extremities:??No lower extremity edema noted.?? Neurology:??No focal neurological deficits.?? Assessment/Plan 63-year-old male patient with PMHx of HTN, HLD, DM with neuropathy, TIA, CAD and nonischemic cardiomyopathy presenting with dizziness found to have significant orthostatic hypotension ?? Assessment and plan: This 63-year-old male patient with known??diabetic neuropathy likely causing his significant orthostatic hypotension??presents with dizziness. ??Although patient has a long history of??orthostatic hypotension and??his orthostatics are positive??after admission,??it appears that he has slightly different complaint from usual.?? Patient is complains of feeling that the room was spinning,??the fact that it is different from his usual dizziness??and his associated ear pain??raise concern for a vestibular cause??of his symptoms which needs to be worked up.?? For his orthostatic hypotension, agree on starting midodrine 5 3 times daily although that has not proven beneficial for him in the past.??If patient continues to have orthostatic symptoms, consider adding Florinef. ?? Recommendations: ??? Agree with adding midodrine 5 mg 3 times daily. ?Patient has??orthostatic symptoms, consider adding Florinef. ?Suspect a vestibular cause of his new??vertigo??due to associated ear pain??and sensation of room spinning. ?Follow-up with outpatient PCP and independent jeweler for his chronic??orthostatic hypotension. ?We will arrange for follow up with Roberto Carlos Noble who specialized in POTS and orthostatic hypotension. ??? Cardiology to sign off ?? Case discussed with attending, Dr. Lema ?? Alem Carlson MD, PGY-4 Cardiovascular disease fellow Pager [phone], available on x.ai Allergies metFORMIN??(GI symptoms) Home Medications Ammonium Lactate 12%: 1 application, Topically, Daily, use daily to the intact skin legs dailyDO NOT apply to open wounds DO NOT Aspirin: 81 mg = 1 tablet, By Mouth, Daily, blood thinner/ hace la leonard mas cullen - para proteger el paty/ arterias tapadas en el paty Atorvastatin: 80 mg = 1 tablet, By Mouth, Daily at bedtime, para colesterol / proteger el paty/ arterias tapadas en el paty Clopidogrel: 75 mg = 1 tablet, By Mouth, Daily Docusate: 100 mg = 1 capsule, By Mouth, 2 times a day, PRN (for constipation) Docusate: 100 mg = 1 tablet, By Mouth, 2 times a day, PRN (for constipation) Durable Medical Equipment (shower chair): See Instructions, diagnosis: diabetic neuropathy, [id number]: E10.42duration: 99 weeks Durable Medical Equipment (toilet seat): See Instructions, to reduce risk of fallsdx: diabetic ylubdfbqoeBMD19: E11.40duration: 52 weeks Durable Medical Equipment (walker with wheels and brakes): See Instructions, dx: diabetic neuropathy, Y5ATAPS87: E10.42duration: 99 weeks Durable Medical Equipment (shower bars): See Instructions, dx: T1DM with severe aliflksqfcYQN25: E10.40duration: 52 weeks Durable Medical Equipment (blood pressure cuff): See Instructions, PRN (Pain , Mild), for medication titrationdx: essential gxsgaiucvhfkYBL77: H28covgiwnr: 52 weeks Durable Medical Equipment (rollator walker w/ 4 wheels, seat and brakes): See Instructions, dx: diabetes with umphwrnwgmPQQ97: E11.40duration: 99 weeksheight: 164cmweight: 93kg Durable Medical Equipment (disinfectant wipes): See Instructions, dx: incontinence, W2GMQBU92: N31.9duration: 99 Durable Medical Equipment (Compression stockings, thigh-high): See Instructions, Grade II: 20-30mmHgDispense 2 pairs ALEIDA 99; Dx I 95.1; G99. 0Ht 164cm Wt 88.2kg ??BMI 32Fax to [facility] Durable Medical Equipment (Abdominal binder for treatment of orthostatic hypotension): See Instructions, Dispense 2 pairs ALEIDA 99; Dx I 95.1; G99. 0Ht 164cm Wt 88.2kg ??BMI 32Fax to [facility] Durable Medical Equipment (medical alert system): See Instructions, dx: T2DM with severe neuropathy, frequent tmflpVWR29: E11.40duration: 99 Durable Medical Equipment (Home blood pressure monitor): See Instructions, ICD 10 I95.1; E11. 43LON: 99Bring rx to [facility] Durable Medical Equipment (raised toilet seat): See Instructions, dx: autonomic neuropathy, frequent dvtyaMGT51: G99.0duration: 99 Durable Medical Equipment (shower chair): See Instructions, dx: autonomic neuropathy, frequent vxczsZJA75: G99.0duration: 99 Durable Medical Equipment: See Instructions, apply one sensor every 14 days; check glucose qid;E11.65 Durable Medical Equipment: See Instructions, Use to check sugar once per day in the morning before eating. Utilize para chequear la azucar noah vez al d miguel antes de comer (en ayunas). Durable Medical Equipment: See Instructions, Use to check sugar once per day in the morning before eating. Utilize para chequear la azucar noah vez al d miguel antes de comer (en ayunas). Durable Medical Equipment (box adult wipes): See Instructions, dx: fecal incontinence, P7IQNJJ12: K74hmijptbg: 99 Durable Medical Equipment: See Instructions, to test blood sugar up to 4 times per daydx: V1IAAHI69: E11.6duration: 99 Durable Medical Equipment (cane with arm rest): See Instructions, dx: T2DM with severe diabetic njrozovpssUAE74: E11.40duration: 99 Durable Medical Equipment (2 boxes size large adult gloves): See Instructions, dx: diabetic neuropathy, egtrppenwywvJJW92: E11.40duration: 99 Durable Medical Equipment (surgical masks): See Instructions, for infection controldx: T2DM with severe ewxccgtfmrXEZ99: E11.40duration: 99 Durable Medical Equipment: See Instructions, To test 3 times a day and with symptomsDx: M3BPWCY70: E11.9duration: 52 weeks Durable Medical Equipment (Ankle foot orthostis): See Instructions, E11.40needed for [facility] Durable Medical Equipment (powerwheel chair): See Instructions, 11.40severe advanced DM neuropathyneeded to navigate weeksfax to [facility] Durable Medical Equipment (bed liners): See Instructions, dx: incontinence, O0YMpwg43: N31.9duration: 99 weeks Durable Medical Equipment (pullups - adult size medium): See Instructions, dx: incontinence, N0IQeqv61: N31.9duration: 99 weeksnote size change Durable Medical Equipment: See Instructions, apply one sensor every 14 days; check glucose qid;E11.65 Durable Medical Equipment (glucerna nutritional shake): See Instructions, T2DM, abnormal weight loss, adult failure to thrive Durable Medical Equipment: See Instructions, check bs 2-3 x a day if cgm fails Durable Medical Equipment (glucerna nutritional shake): See Instructions, dx: sarcopenia, R8DXQHM56: M62.84, E10.9duration: 99 empagliflozin: 25 mg = 1 tablet, By Mouth, Daily in AM Famotidine: 10 mg = 1 tablet, By Mouth, 2 times a day Famotidine: 10 mg = 1 tablet, By Mouth, 2 times a day Finasteride: 5 mg, By Mouth, Daily Insulin Glargine: 23 units, Subcutaneous Injection, Daily at bedtime, Insulina de 24 horas. Insulin Glargine: 23 units, Subcutaneous Injection, Daily at bedtime, Insulina de 24 horas. Insulin Lispro: See Instructions, 50 units a day for the pump - 1,500 units a month and 4,500 90 days , give pt 3 month supply - 5 vials for pump use- needs 15 ml vials - 5 for 90 days supply Insulin Lispro: See Instructions, Mealtime insulin; dose according to finger stick before meals FS 100-199: 5 units FS: 200-249: 6 units FS 250-299: 7 units FS above 300: 8 unitstotal daily short acting insulin dose 30 units Isosorbide Mononitrate: 30 mg = 1 tablet, By Mouth, Daily at bedtime, Para el paty. ??Noelle antesde acostarse. Losartan: 12.5 mg = 0.5 tablet, By Mouth, Daily Metoprolol: 50 mg = 1 tablet, By Mouth, Daily at bedtime, para proteger el paty/ prevenir palpitacionesBeba antes de acostarse. Miscellaneous Rx (Hand Held Shower Head): See Instructions, diagnosis: diabetic neuropathy, T1DM. ICD10: E10.42duration: 99 weeks. Fax to Cheryl ([facility]) Miscellaneous Rx (one pair Diabetic Shoes with Inserts): See Instructions, Wear for diabetic foot care. Diagnosis: Type II DM, ICD10 E11.65. Morphine: 15 mg = 1 tablet, By Mouth, Every 12 hours Nortriptyline: See Instructions, GEORGE 1 CAPSULA CADA MIGUEL A LA HORA DE DORMIR. *NUEVO MEDICAMENTO PARA DOLOR NEUROPATICO. NO GEORGE JUNTO CON TRAZODONE. PUEDE CAUSAR SEDACION Oxycodone: 10 mg = 1 tablet, By Mouth, Every 6 hours, PRN (pain) Tamsulosin: 0.8 mg = 2 capsule, By Mouth, Daily Hospital Medications Medications (29) Active SCHEDULED: (14) Ammonium Lactate 12% Cream (Ammonium Lactate 12% Topical) ??1 application, Topically, Daily Aspirin 81 mg EC Tablet (aspirin 81 mg oral delayed release tablet) ??81 mg, By Mouth, Daily Atorvastatin 80 mg Tablet (Lipitor 80 mg oral tablet) ??80 mg, By Mouth, Daily at bedtime Enoxaparin 40 mg Inj (Enoxaparin Inj) ??40 mg 0.4 mL, Subcutaneous Injection, Every 24 hours Famotidine 20 mg Tablet (famotidine 20 mg oral tablet) ??10 mg, By Mouth, 2 times a day Finasteride 5 mg Tablet (finasteride 5 mg oral tablet) ??5 mg, By Mouth, Daily Insulin Glargine 100 units/mL Inj (Lantus Inj) ??23 units 0.23 mL, Subcutaneous Injection, Daily atbedtime Insulin Lispro 100 units/mL Inj (Insulin LISPRO Sliding Scale) ??2-10 units, Subcutaneous Injection, 3 times a day before meals Isosorbide Mononitrate 30 mg ER Tablet (isosorbide mononitrate 30 mg oral tablet, extended release)??30 mg, By Mouth, Daily at bedtime Metoprolol 50 mg XL Tablet (metoprolol 50 mg oral tablet, extended release) ??50 mg, By Mouth, Daily at bedtime Midodrine 5 mg Tablet (midodrine 5 mg oral tablet) ??5 mg, By Mouth, 3 times a day MorPHINE 15 mg CR Tablet (morphine 15 mg/8 to 12 hr oral tablet, extended release) ??15 mg, By Mouth, Every 12 hours NaCl 0.9% Flush 3ml (NaCL 0.9% Flush) ??3 mL, IV Push, Every 8 hours Nortriptyline 10 mg Capsule (nortriptyline 10 mg oral capsule) ??10 mg, By Mouth, Daily at bedtime CONTINUOUS: (0) PRN: (15) Acetaminophen 325 mg Tablet (Acetaminophen Tablet) ??650 mg, By Mouth, Every 4 hours Dextromethorphan-Guaifenesin 20 mg-200 mg/10 mL Liqu UD (Robitussin DM Liquid) ??10 mL, By Mouth, Every 4 hours Dextrose Inj Syringe (Dextrose 50% Inj Syringe (25Gm)) ??12.5 Gm, IV Push Slowly, Every 20 minutes Dextrose Inj Syringe (Dextrose 50% Inj Syringe (25Gm)) ??25 Gm, IV Push Slowly, Every 15 minutes Docusate Sodium 100 mg Capsule (Docusate Sodium Capsule) ??100 mg 1 capsule, By Mouth, 2 times a day Docusate Sodium 100 mg Capsule (docusate sodium 100 mg oral capsule) ??100 mg 1 capsule, By Mouth, 2 times a day Glucagon 1 mg Inj (Glucagon Inj) ??1 mg, Intramuscular, Once Glucose 40% Gel (15 Gm) (Glucose Gel) ??15 Gm, By Mouth, Every 20 minutes Glucose 40% Gel (15 Gm) (Glucose Gel) ??30 Gm, By Mouth, Every 20 minutes Melatonin 3 mg Tablet (Melatonin Tablet) ??3 mg, By Mouth, Daily at bedtime NaCl 0.9% Flush 3ml (NaCL 0.9% Flush) ??3 mL, IV Push, Every 8 hours OxyCODONE 5 mg IR Tablet (oxyCODONE 5 mg oral tablet) ??10 mg, By Mouth, Every 6 hours Polyethylene Glycol 17 Gm Powder (MiraLax Powder) ??17 Gm 1 pack/packet, By Mouth, Daily Senna Tablet ??8.6 mg 1 tablet, By Mouth, 2 times a day Simethicone 80 mg Chewable Tablet (Simethicone Tablet) ??80 mg, Chew, 3 times a day Lab Results Cardiology Labs WBC: 7.1 k/mm3 (01/03/24) RBC:??4.4 m/mm3??Low (01/03/24) Hgb:??12.9 Gm/dL??Low (01/03/24) Hct:??38.3 %??Low (01/03/24) MCV: 87 femtoliters (01/03/24) MCH: 29.3 pg (01/03/24) MCHC: 33.7 g/dL (01/03/24) Platelet Count: 180 k/mm3 (01/03/24) RDW-SD: 40.7 femtoliters (01/03/24) Nucleated RBC (Automated): 0 #/100 WBC'S (01/03/24) Abs. Neut: 5.3 k/mm3 (01/03/24) Abs. Lymph: 1.1 k/mm3 (01/03/24) Abs. [place]: 0.5 k/mm3 (01/03/24) Abs. Eo: 0.1 k/mm3 (01/03/24) Abs. Baso: 0 k/mm3 (01/03/24) Neut %: 74.5 % (01/03/24) [place] %: 6.9 % (01/03/24) Eos %: 1.8 % (01/03/24) Baso %: 0.1 % (01/03/24) Imm Gran: 0.6 % (01/03/24) Abs. Imm Gran: 0 k/mm3 (01/03/24) Sodium: 137 mmol/L (01/03/24) Potassium: 4.2 mmol/L (01/03/24) Chloride: 98 mmol/L (01/03/24) Bicarbonate Level: 29 mmol/L (01/03/24) Glucose Level:??168 mg/dL??High (01/03/24) BUN: 11 mg/dL (01/03/24) BUN: 17 mg/dL (10/08/23) Creatinine-Blood:??0.68 mg/dL??Low (01/03/24) Calcium:??8.5 mg/dL??Low (01/03/24) Protein, Total: 6.4 Gm/dL (11/16/23) Albumin: 4 Gm/dL (11/16/23) Alkaline Phosphatase:??142 units/L??High (11/16/23) AST (SGOT): 20 units/L (11/16/23) ALT (SGPT): 19 units/L (11/16/23) Bilirubin, Total: 0.7 mg/dL (11/16/23) Nt-Probnp:??201 pg/mL??High (11/11/23) Cholesterol: 140 mg/dL (01/03/24) Triglycerides: 68 mg/dL (01/03/24) HDL Cholesterol: 44 mg/dL (01/03/24) LDL Cholesterol: 82 mg/dL (01/03/24) Non HDL Cholesterol: 96 mg/dL (01/03/24) TSH: 0.92 uIU/mL (01/04/24) Diagnostic Impression CT CT Angio Abdomen and Pelvis ?? 17:07:48 IMPRESSION: ?? Normal CT angiogram of the chest, abdomen, and pelvis. ? WSN: [id number] ?? Signed By: Karol Nazario MD ECG ECG 12-Lead ?? 13:14:25 Please click on pdf link to open report ?? Signed By: Viet WHITE, Siddhartha Sweeney ?? ECG 12-Lead ?? 13:14:25 Ventricular Rate: 65 BPM Atrial Rate: 65 BPM P-R Interval: 138 ms QRS Duration: 84 ms Q-T Interval: 400 ms QTC Calculation(Bazett): 416 ms P [place]: 21 degrees R [place]: -49 degrees T [place]: 104 degrees Sinus rhythm with Premature atrial complexes Left anterior fascicular block Anteroseptal infarct (cited on or before 19-JUN-2019) T wave abnormality, consider lateral ischemia Abnormal ECG When compared with ECG of 12-NOV-2023 16:11, Premature atrial complexes are now Present Left anterior fascicular block is now Present T wave inversion less evident in Anterior leads Confirmed by Siddhartha Llanos ([id number]) on 01/03/2024 2:06:54 PM ?? [place]: Siddhartha Llanos ?? Signed By: Siddhartha Llanos MD Stress Test NM Myocard Perf SPECT Multi ?? 12:16:00 Summary 1. Myocardial perfusion imaging is abnormal showing a severe intensity large fixed perfusion defect involving the apex and distal anterior wall with severe hypokinesis, consistent with a scar. No reversible perfusion defect after Regadenoson infusion. 2. LV function is reduced with an E.F. of 47% at rest and 52% after IV administration of Regadenoson with normal wall motion and thickening. 3. EKG portion of the stress test is reported separately. ?? Signatures _ _ ?? Signed By: Alivia Correia MD Echo Echocardiogram - Complete ?? 08:38:04 Summary 1) The LV systolic function is mildly reduced. The left ventricular ejection fraction is 40-45%. There is severe hypokinesis of the mid to distal anteroseptal wall, and the distal inferoseptal and anterior pulido. The apex appears akinetic. 2) The left ventricular wall thickness is moderately increased. 3) Grade II, moderate diastolic dysfunction with pseudonormal LV filling pattern and increased LA pressure. 4) The right ventricle is normal in size and function. 5) The left atrium is moderately dilated. ?? Comparison Comparison is made to the study of January 02, 2019. LV EF is slightly improved ?? Signature ?? Signed By: Morris WHITE, Gulshan Munson VL Studies VL Carotid Duplex Scan Bilat ?? 10:01:16 Summary ?? Right Side: 1-49% stenosis in the Internal Carotid Artery. The stenosis estimate is at the lower end of the range. Antegrade flow in the Vertebral Artery. Multiphasic flow is seen in the Subclavian Artery. ?? Left Side: 1-49% stenosis in the Internal Carotid Artery. The stenosis estimate is at the lower end of the range. Antegrade flow in the Vertebral Artery. Multiphasic flow is seen in the Subclavian Artery. ?? Comparison is made to the previous ultrasound study dated 08/21/16. ?? Signature ?? Signed By: Jones Deras MD Problem List/Past Medical History Ongoing Anxiety and depression BPH with urinary obstruction CAD (coronary artery disease) Chronic pain syndrome Controlled substance agreement signed 01-19-23 Diabetic autonomic neuropathy Diabetic nephropathy Diabetic peripheral neuropathy Dysphagia Hallucinations Hyperlipidemia Hypertension Ischemic cardiomyopathy EF 40% 04/2022; akinetic apex Orthostatic hypotension - severe, resulting in recurrent falls T1DM (type 1 diabetes mellitus) Thrombocytopenia TIA (transient ischemic attack) Procedure/Surgical History Carpal tunnel release Patient Education Titles WebMD Ignite Patient Education - Transient Ischemic Attack (TIA) Outpatient Instructions?? Patient Instructions DIAGNOSIS:??You were seen for dizziness. ? TEST RESULTS:??Labs and CT imaging of your head were reassuring. ? Your specific PATIENT CARE INSTRUCTIONS (what to do / when to return):??You were given a liter of IV fluids while in the department due to continued dizziness. ??A prescription for clopidogrel (plavix)??was sent to your local pharmacy. ??Please take as directed. ??Please also continue to take your home aspirin daily. ??We would like for you to follow-up??at our TIA clinic.?Someone should be contacting you within the next couple of days.?We would also like for you to follow-up with your PCP within the next??week.?Should you continue to have??dizziness, develop??new vision changes, areunable to ambulate??due to loss of balance,??or develop any other concerning symptoms please returnto the emergency room. ? MEDICATIONS (what medications you should start (or stop) taking):??You may continue your home medications as prescribed by doctor. Social History Alcohol Use: Past. Employment/School Status: Disabled. Home/Environment Living situation: Home/Independent. Substance Abuse Use: Never. Tobacco Use: Never (less than 100 in lifetime). Family History Mother: Diabetes mellitus type II; Hypertension Father: Diabetes mellitus type II; Hypertension Other: CAD - Coronary artery disease * Torey WHITE, Marybel N: PERFORM Event Display: Consultation Note Authored Date: [id number] Attending Attestation: I have seen and evaluated this patient.?? I have discussed the case and its management with the resident and agree with the findings and plan as documented in the resident???s note. Note * Macarena Watkins RN: PERFORM Event Display: Discharge/Transfer Note Hospital Authored Date: [id number] Nursing Discharge Note Entered On: 01/04/2024 14:04 EDT Performed On: 01/04/2024 14:03 EDT by Macarena Watkins RN Nursing Discharge Note 2 Discharge Time : 01/04/2024 13:55 EDT Discharge Level of Care at Discharge : Homehealth/VNA Discharge VNA/Hospice/Home Care(v001) : [facility] [phone] Patient Left Unit Via : Wheelchair Patient Accompanied Off Unit with : Responsible adult DC Instructions Provided & Signed by Pt : Yes Patient Understands D/C Instructions : Yes Patient Instructions Discharge Signed : Yes Did Pt have Specialty Bed or Wound Vac : No June EPPERSON, Macarena - 01/04/2024 14:04 EDT * Kirsty WHITE, Jaimie: PERFORM Event Display: Discharge/Transfer Note Hospital Authored Date: [id number] Patient: ??PARIS ROJO ? Age:??63 Years?Sex:??Male?:??1960?? Patient Information Discharge Location: B Primary Care Physician: Claire Trujillo MD Admit Date/Time: 01/03/24 11:36 Discharge Disposition Discharge Disposition: Home with Home Health Discharge Diagnosis Orthostatic dizziness (R42) Dizziness (R42) BPH (benign prostatic hyperplasia) (N40.0) Orthostatic hypotension (I95.1) Coronary artery disease (I25.10) Essential hypertension (I10) Ischemic cardiomyopathy (I25.5) OSMAR (generalized anxiety disorder) (F41.1) Mood disorder (F39) Dyslipidemia (E78.5) Diabetes mellitus (E11.9) Chronic pain syndrome (G89.4) _ Discharge Medications Ammonium Lactate 12% (ammonium [...] day?as needed?for 30?Days?for constipation Durable Medical Equipment (Compression Stockings)?See Instructions?surgical, knee length 30-40 mm Hg empagliflozin (Jardiance 25 mg oral tablet)?1?tab(s)?25?Milligram?By Mouth?Daily in AM Famotidine (Heartburn Relief 10 mg oral tablet)?1?tab(s)?10?Milligram?By Mouth?2 times a day Finasteride (finasteride 5 mg oral tablet)?5?Milligram?By Mouth?Daily?for 30?Days Insulin Glargine (Lantus Solostar Pen 100 units/mL subcutaneous solution)?23?unit(s)?Subcutaneous Injection?Daily at bedtime?Insulina de 24 horas. Insulin Lispro (Humalog 100 u/ml subcutaneous injection)?See Instructions?50 units a day for the pump - 1,500 units a month and 4,500 90 days , give pt 3 month supply - 5 vials for pump use- needs 15 ml vials - 5 for 90 days supply Isosorbide Mononitrate (isosorbide mononitrate 30 mg oral tablet, extended release)?30?Milligram?1?tablet?By Mouth?Daily at bedtime?for 90?Days?Para el paty. ??Noelle antes de acostarse. Losartan (losartan 25 mg oral tablet)?12.5?Milligram?0.5?tablet?By Mouth?Daily?for 30?Days Meclizine (meclizine 12.5 mg oral tablet)?1?tab(s)?12.5?Milligram?By Mouth?3 times a day?as needed?for dizziness?for 7?Days Metoprolol (metoprolol 50 mg oral tablet, extended release)?50?Milligram?1?tablet?ByMouth?Daily at bedtime?for 90?Days?para proteger el paty/ prevenir palpitacionesBebaantes de acostarse. Midodrine (midodrine 5 mg oral tablet)?5?Milligram?By Mouth?3 times a day?for 30?Days Miscellaneous Rx (Hand Held Shower Head)?See Instructions?diagnosis: diabetic neuropathy, T1DM. ICD10: E10.42duration: 99 weeks. Fax to Cheryl ([facility]) Miscellaneous Rx (one pair Diabetic Shoes [...] oral tablet)?1?tab(s)?10?Milligram?By Mouth?Every 6 hours?as needed?pain?for 28?Days ? Durable Medical Equipment Discharge recommendations: Home (11/13/23) Name of Agency #1: [facility] (01/04/24) Agency Internet Marketing Analyst #1: [phone] (01/04/24) Service Categories #1: Physical Therapy, Group Home (01/04/24) Service Comments #1: A nurse kinjal trujillo in 1-2 days to arrange a visit, please call [phone] with questions or concerns (01/04/24) Ambulatory devices needed: Walker (01/03/24) ? Allergies Allergies ?(Active and Proposed Allergies Only) metFORMIN? (Severity: Unknown severity, Onset: Unknown) ?Reactions: GI symptoms ?Comments: GI intolreance ? Future Appointments 2023 4:00 PM EDT ?? With: Claire Trujillo MD Where: [address] [address]- Status: Pending 2023 1:30 PM EDT ?? Where: [address] [address]- Status: Pending Objective Assessment and Plan ?63 y o with PMH of ??medical history of coronary artery disease complicated by myocardial infarction, essential hypertension, dyslipidemia, history of TIA, insulin-dependent diabetes mellitus type 1, generalized anxiety disorder, ischemic cardiomyopathy, neuropathy, severe orthostatic hypotensioncausing recurrent falls presented with dizziness .??CT head , CTA head neck??was non acute. No focal deficit, pt was significantly orthostasis and symptomatic .?? IV fluid but also remain orthostasisthough his symptoms has improved. ??Dizziness was likely from orthostatic hypotension, there could be component of vertigo as well??but unlikely TIA. ??Patient??started on??midodrine 5 mg 3 times daily.?? Cardiology was consulted. ??Cardiology recommends to continue midodrine,??cardiology will arrange for outpatient follow-up with EP??for further evaluation of orthostasis.?? Patient is feeling better today, mention dizziness is improving,??discussed at length??about the importance of adequate oral hydration,??use of compression stockings.?? He will be discharged home today, case management has arranged VNA services for home. ? Orthostatic hypotension (I95.1) ?Grouped with??Orthostatic dizziness (R42),??Dizziness (R42) ? patient presents to the hospital with clearly symptomatic symptoms??in the setting of soft blood pressure reading with profound??orthostatic vitals??upon arrival to the facility Head CT scan and CT angio head/neck without any??acute abnormalities. S/p fluids. Still orthostatic but his dizziness has improved Started on midodrine,??continue midodrine 5 mg 3 times daily Will hold??tamsulosin Appreciate cardiology recommendation cardiology will arrange follow-up with EP ? Chronic pain syndrome (G89.4):??Resume??home medications ?? Diabetes mellitus (E11.9):?? resume home regimen ?? Dyslipidemia (E78.5):??Resume statin ?? Mood disorder (F39) ?Grouped with??OSMAR (generalized anxiety disorder) (F41.1) ? Continue nortriptyline ?? Ischemic cardiomyopathy (I25.5):??History of ischemic cardiomyopathy History limited. ?? Essential hypertension (I10):??Continue metoprolol with holding parameters and hold Imdur ?? 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 Continue aspirin and??statins. ? Left foot wound ??continue wound care ? . Physical Exam GENERAL: In no apparent distress HEENT: Head normocephalic, PERRL,Moist mucous membrane. Neck supple CARDIOVASCULAR: Normal rate and rhythm, no murmurs, no rubs, no gallops RESPIRATORY: Lungs clear to auscultation, no wheezes , no crackles ABDOMEN/GI: Nondistended, soft, nontender, normal bowel sounds EXTREMITIES: No pitting edema, left foot in dressing BUCKET TURNER: Alert and oriented x 3.Non focal neuro exam. ? Consultants Cardiology Pending Results Add On Lab Order ordered on 01/03/2024 Hemoglobin A1C (Monitoring) ordered on 01/03/2024 Patient Education Titles WebMD Ignite Patient Education - Hypotension, Orthostatic?? WebMD Ignite Patient Education - Transient Ischemic Attack (TIA) Outpatient Instructions?? Follow-Up Appointments Added Follow Up ?Time Frame ?Comments Claire Trujillo MD?1 to 2 weeks Patient Instructions DIAGNOSIS:??You were seen for dizziness. ? TEST RESULTS:??Labs and CT imaging of your head were reassuring. ? Your specific PATIENT CARE INSTRUCTIONS (what to do / when to return):??You were given a liter of IV fluids while in the department due to continued dizziness. ??Her orthostatic hypotension,??your blood pressure drops??with sitting and standing up. ??This did not improve with??IV fluid. ??You have been started on a new medication called midodrine??to help with this. ??Please do not take tamsulosin. ??Please maintain??adequate oral hydration. We have also prescribed meclizine to take??as??neededfor Dizziness.?Please wear compression socks when out of bed . ??We would also like for you to follow-up with your PCP within the next??week.?Should you continue to have??dizziness, develop??new vision changes, are unable to ambulate??due to loss of balance,??or develop any other concerning symptoms please return to the emergency room. ? Post Discharge Care Discharge ?01/04/24 12:07:00 EDT Discharge Prescriptions ?ePrescribed, 01/04/24 12:07:00 EDT Home Health Face to Face *Denotes mandatory bergman ?? *I certify that this patient is under my care and that I or an allowed non- physician working with me had a face to face encounter with the patient on this date:??01/04/2024 12:23 ?? *The encounter with the patient was in whole, or in part, for the following medical condition, which is the primary diagnosis(es) for home health care:??Orthostatic dizziness (R42) Dizziness (R42) BPH (benign prostatic hyperplasia) (N40.0) Orthostatic hypotension (I95.1) Coronary artery disease (I25.10) Essential hypertension (I10) Ischemic cardiomyopathy (I25.5) OSMAR (generalized anxiety disorder) (F41.1) Mood disorder (F39) Dyslipidemia (E78.5) Diabetes mellitus (E11.9) Chronic pain syndrome (G89.4) ?? *Select the indications for the discipline/s that are being arranged for this patient. Nursing (select all that apply): [_] None [x_] Medication management (reconciliation, teaching)?? [_] Chronic disease management?? [_] Wound care and treatment?? [x_] Home safety evaluation [_x] Administer SQ/IM/IV medications?? [_] Cath care?? [_] Drain care?? [_] Trach or GT care?? Other _ Occupation Therapy (select all that apply): [_] None [_] ADL Management [_] Fall prevention training [_] Energy conservation [_] Cognitive training Other _ Physical Therapy (select all that apply): [_] None [x_] Functional mobility training [_] Home exercise program to strengthen [_] Increase ROM?? [x_] Falls prevention training [_] Home maintenance program for chronic disease Other _vestibular rehab Speech Therapy (select all that apply): [_] None [_] Swallow evaluation and training [_] Speech and language training [_] Cognitive training to process, organize, and/or recall information Other _ ? *Homebound due to (select all that apply): [x_] Inability to leave home without assistance/supervision [_] Inability to ambulate without assistance [_] Pain [_] Decreased strength and endurance [_] Unsteady gait [_] Severe SOB and fatigue [_] Impaired transfers [_] Inability to negotiate stairs [_] Limited weight bearing [_] Mental status change? *Physician Signature: _Jaimie Lofton mD ?? *By signing this, I certify that I have personally evaluated the patient and agree with the findings and recommendations as documented above. ? Results Discharge Labs BLOOD COUNT & DIFF WBC 7.1 k/mm3 ()?? 01/03/2024 13:38 RBC 4.40 m/mm3 (Low)?? 01/03/2024 13:38 Hgb 12.9 Gm/dL (Low)?? 01/03/2024 13:38 Hct 38.3 % (Low)?? 01/03/2024 13:38 MCV 87.0 femtoliters ()?? 01/03/2024 13:38 MCH 29.3 pg ()?? 01/03/2024 13:38 MCHC 33.7 g/dL ()?? 01/03/2024 13:38 Platelet Count 180 k/mm3 ()?? 01/03/2024 13:38 RDW-SD 40.7 femtoliters ()?? 01/03/2024 13:38 MPV 10.8 femtoliters ()?? 01/03/2024 13:38 Nucleated RBC (Automated) 0.0 #/100 WBC'S ()?? 01/03/2024 13:38 Abs. NRBC 0.0 k/mm3 ()?? 01/03/2024 13:38 Abs. Neut 5.3 k/mm3 ()?? 01/03/2024 13:38 Abs. Lymph 1.1 k/mm3 ()?? 01/03/2024 13:38 Abs. [place] 0.5 k/mm3 ()?? 01/03/2024 13:38 Abs. Eo 0.1 k/mm3 ()?? 01/03/2024 13:38 Abs. Baso 0.0 k/mm3 ()?? 01/03/2024 13:38 Neut % 74.5 % ()?? 01/03/2024 13:38 Lymph % 16.1 % ()?? 01/03/2024 13:38 [place] % 6.9 % ()?? 01/03/2024 13:38 Eos % 1.8 % ()?? 01/03/2024 13:38 Baso % 0.1 % ()?? 01/03/2024 13:38 Imm Gran 0.6 % ()?? 01/03/2024 13:38 Abs. Imm Gran 0.0 k/mm3 ()?? 01/03/2024 13:38 ?? CARDIAC High Sensitivity Troponin (HSTnT) 30 ng/L (High)?? 01/04/2024 03:41 ? CHEM GENERAL Sodium 137 mmol/L ()?? 01/03/2024 13:38 Potassium 4.2 mmol/L ()?? 01/03/2024 13:38 Chloride 98 mmol/L ()?? 01/03/2024 13:38 Bicarbonate Level 29 mmol/L ()?? 01/03/2024 13:38 Anion Gap 10 ()?? 01/03/2024 13:38 Glucose Level 168 mg/dL (High)?? 01/03/2024 13:38 Glucose, POC 278 mg/dL (High)?? 01/04/2024 10:38 BUN 11 mg/dL ()?? 01/03/2024 13:38 Creatinine-Blood 0.68 mg/dL (Low)?? 01/03/2024 13:38 Estimated GFR Creatinine 103 ML/MIN/1.73 M2 ()?? 01/03/2024 13:38 Calcium 8.5 mg/dL (Low)?? 01/03/2024 13:38 ? ENDOCRINE/TUMOR MARKER TSH 0.92 uIU/mL ()?? 01/04/2024 00:42 Cortisol Level 14.8 ??g/dL ()?? 01/04/2024 08:43 ?? HEME OTHER Hold Lavender Top SPECIMEN DISCARDED AFTER 24 HOURS. ()?? 01/04/2024 08:41 ? LIPID STUDIES Cholesterol 140 mg/dL ()?? 01/03/2024 13:38 Triglycerides 68 mg/dL ()?? 01/03/2024 13:38 HDL Cholesterol 44 mg/dL ()?? 01/03/2024 13:38 LDL Cholesterol 82 mg/dL ()?? 01/03/2024 13:38 Non HDL Cholesterol 96 mg/dL ()?? 01/03/2024 13:38 ? URINE OTHER Est Creatinine Clearance 95.46 mL/min ()?? 01/03/2024 21:40 ? 35_ minutes spent on discharge * Ronda Hernandez RN: PERFORM, SIGN, VERIFY Event Display: Case Management Discharge Plan Authored Date: Patient: PARIS ROJO Age: 63 years Sex: Male : 1960 Associated Diagnoses: None Author: Ronda Hernandez RN Discharge Plan Case Management Discharge Plan : Case Management Discharge Plan Data 01/04/2024 8:19 EDT Discharge Level of Care at Discharge Homehealth/VNA Discharge VNA/Hospice/Home Care [facility] [phone] Name of Agency #1 [facility] Agency Internet Marketing Analyst # Service Categories #1 Physical Therapy, Group Home Service Comments #1 A nurse kinjal trujillo in 1-2 days to arrange a visit, please call [phone] withquestions or concerns * Macarena Watkins RN: PERFORM Event Display: Patient Education/Instruction Authored Date: Inpatient Adult Discharge Instructions. [address] [address] Name: PARIS ROJO : 1960?? Visit: 01/03/2024 11:36?? Current Date: 01/04/2024 13:32 ?? Account: [id number]?? Inpatient Adult Discharge Instructions We would like [...] and their families. Surveys are administered by [employer] ?? If further treatment with your primary care physician or another doctor is recommended, it is important for you to keep the appointment. Call your primary care physician or return to the Emergency Department immediately if your condition worsens, fails to improve, or new symptoms develop. If you need to find a doctor, you can call [facility] Link for a referral at [phone] or toll free at [phone]) or log in to [email or web address] ?? [facility], in keeping with [facility] guidance, no longer requires face masks [...] a health care gisella of your choosing. [facility] is a website that allows you to securely view your medical information including your hospital discharge summary, office visit summaries, medications and follow-up visits. You can also request appointments, renew medications, and request access to your medical information using a health care gisella of your choosing, or just ask a question. You can enroll at [email or web address] or register during your next office visit. You have been discharged from [facility], Patient Care Unit: D3B??. If you have any questions regarding these instructions, including results of studies pending, afteryou leave, please call us and we will be happy to assist you 05/02. [facility] Your Care Team Attending Physician Jaimie Lofton MD?? Consulting Providers Jaimie Lofton MD?? Discharging Providers Jaimie Lofton MD Reason for Your Visit woke up this am more lethargic. has a necrotic L foot wound that he is followed here, however couldnt get an appt so went to [facility] and they wrapped it and sent home.?? Your Diagnosis BPH (benign prostatic hyperplasia) Chronic pain syndrome Coronary artery disease Diabetes mellitus Dizziness Dyslipidemia Essential hypertension OSMAR (generalized anxiety disorder) Ischemic cardiomyopathy Mood disorder Orthostatic hypotension Tests Performed Below is a partial list of the tests performed during your hospitalization. You may have had other tests and procedures not included in this list. Please discuss all test results with your provider. Basic Metabolic Panel CBC w/ Differential Cortisol Level GLUCOSE POC HOLD LAVENDER TUBE LIPID PANEL Troponin T, High Sensitivity TSH TSH with T4 Reflex (Adults Only) CT Angio Head CT Angio Neck CT Head/Brain W/O Contrast XR Chest 2 Views Frontal and Lat Add On Lab Order?? Hemoglobin A1C (Monitoring) (HEMOGLOBIN A1C)?? Primary Care Provider Claire Trujillo MD? Advance Directive Health Care Proxy on File Yes - Health Care Proxy Discharge Vitals Temperature: 98.2 DegF Height: 166 cm Pulse Rate: 71 bpm Weight: 72.2 kg Respiratory Rate: 18 br/min Body Mass Index:??26.2 kg/m2??High Systolic Blood Pressure:??142 mm Hg??High Body surface area: 1.82 Diastolic Blood Pressure: 66 mm Hg ?? Oxygen Saturation: 100 % ?? Studies Pending All studies ordered during this hospital stay have been completed unless listed below. Please discuss all pending results with your provider listed above in these instructions. ?? Add On Lab Order?? Hemoglobin A1C (Monitoring) (HEMOGLOBIN A1C)?? What to do next Instructions From Your Doctor DIAGNOSIS:??You were seen for dizziness. ? TEST RESULTS:??Labs and CT imaging of your head were reassuring. ? Your specific PATIENT CARE INSTRUCTIONS (what to do / when to return):??You were given a liter of IV fluids while in the department due to continued dizziness. ??Her orthostatic hypotension,??your blood pressure drops??with sitting and standing up. ??This did not improve with??IV fluid. ??You have been started on a new medication called midodrine??to help with this. ??Please do not take tamsulosin. ??Please maintain??adequate oral hydration. We have also prescribed meclizine to take??as??neededfor Dizziness.?Please wear compression socks when out of bed . ??We would also like for you to follow-up with your PCP within the next??week.?Should you continue to have??dizziness, develop??new vision changes, are unable to ambulate??due to loss of balance,??or develop any other concerning symptoms please return to the emergency room. ? Orders? 01/04/24 12:07:00 EDT?? Prescriptions??, ??01/04/24 12:07:00 EDT?? Scheduled Follow-Up Appointments 2023 4:00 PM EDT ?? With: Claire Trujillo MD Where: [address] [address]- Status: Pending 2023 1:30 PM EDT ?? Where: [address] [address]- Status: Pending You Need to Schedule the Following Appointments Follow Up with??Claire Trujillo MD When:??Within 1 to 2 weeks Where: ?? Discharge Medications PARIS ROJO :1960 Visit Date:01/03/2024 Medications: Please continue your medications until treatment is completed or stopped by your provider. Medications not listed below should be discontinued. Discuss any questions related to medications with your provider. What How Much When Why Instructions Next Dose New Durable Medical Equipment (Compression Stockings)See instructions surgical, knee length 30-40 mm Hg ?? Printed Prescription given to pt New Meclizine (meclizine 12.5 mg oral tablet) 1 tab(s) Oral 3 times a day as needed for for dizziness Duration: 7 [facility] take as directed New Midodrine (midodrine 5 mg oral tablet) 5 Milligram Oral 3 times a day Duration: 30 Days Pickup at [facility] 3 Take as directed Changed Docusate (docusate sodium 100 mg oral capsule) 1 capsule Oral Twice a day as needed for for constipation Duration: 30 Days Take as directed Changed Famotidine (Heartburn Relief 10 mg oral tablet) 1 tab(s) Oral Twice a day Take on tonight Changed Insulin Glargine (Lantus Solostar Pen 100 units/ mL subcutaneous solution) 23 unit(s) Subcutaneous Injection Daily at Bedtime Insulina de 24 horas. ?? Take on tonight Changed Insulin Lispro (Humalog 100 u/ ml subcutaneous injection) See instructions 50 units a day for the pump - 1,500 units a month and 4,500 90 days , give pt 3 month supply - 5 vials for pump use- needs 15 ml vials - 5 for 90 days supply ?? Unchanged Ammonium Lactate 12% (ammonium lactate 12% topical lotion) 1 gisella Topically Daily use daily to the intact skin legs daily DO NOT apply to open wounds DO NOT ?? Take on tomorrow Unchanged Aspirin (aspirin 81 mg oral delayed release tablet) 1 tab(s) Oral Daily Duration: 90 Days blood thinner/ ??hace la leonard mas cullen - para proteger el paty/ ??arterias tapadas en el paty ?? Take as directed Unchanged Atorvastatin (Lipitor 80 mg oral tablet) 1 tab(s) Oral Daily at Bedtime Duration: 90 Days para colesterol / ??proteger el paty/ ??arterias tapadas en el paty ?? Take as directed Unchanged Durable Medical Equipment (2 boxes size large adult gloves) See instructions dx: diabetic neuropathy, incontinence ICD10: E11.40 duration: 99 ?? Unchanged Durable Medical Equipment (Abdominal binder for treatment of orthostatic hypotension) Seeinstructions Dispense 2 pairs ALEIDA 99; Dx I 95.1; G99. 0 Ht 164cm Wt 88.2kg ??BMI 32 Fax to [facility] ?? Unchanged Durable Medical Equipment (Accu-Chek Josie Plus Test Strips) See instructions check bs 2-3 x a day if cgm fails ?? Unchanged Durable Medical Equipment (Alcohol Pads) [...] (en ayunas). ?? Unchanged Durable Medical Equipment (glucerna nutritional shake) See instructions T2DM, abnormal weight loss, adult failure to thrive ?? Unchanged Durable Medical Equipment (glucerna nutritional shake) See instructions dx: sarcopenia, T1DM ICD10: M62.84, E10.9 duration: 99 ?? Unchanged Durable Medical Equipment (Home blood pressure monitor) See instructions ICD 10 I95.1; E11. 43 ALEIDA: 99 [facility] ?? Unchanged Durable Medical Equipment (medical alert system) See instructions dx: T2DM with severe neuropathy, frequent falls ICD10: E11.40 duration: 99 ?? Unchanged Durable Medical Equipment (powerwheel chair) See instructions 11.40 severe advanced DM neuropathy needed to navigate safely ?? 99 weeks ?? fax to [facility] ?? Unchanged Durable Medical Equipment (pullups - [...] 1 tab(s) Oral Daily in the morning Unchanged Finasteride (finasteride 5 mg oral tablet) 5 Milligram Oral Daily Duration: 30 Days Unchanged Isosorbide Mononitrate (isosorbide mononitrate 30 mg oral tablet, extended release) 1 tab(s) Oral Daily at Bedtime Duration: 90 Days Para el paty. ??Noelle antes de acostarse. ?? Unchanged Losartan (losartan 25 mg oral tablet) 0.5 tab(s) Oral Daily Duration: 30 Days Unchanged Metoprolol (metoprolol 50 mg oral tablet, extended release) 1 tab(s) Oral Daily at Bedtime Duration: 90 Days para proteger el paty/ ??prevenir palpitaciones Noelle antes de acostarse. ?? Unchanged Miscellaneous Rx (Hand Held Shower Head) See instructions diagnosis: diabetic neuropathy, T1DM. ICD10: E10.42 duration: 99 weeks. Fax to [facility] ([facility]) ?? Unchanged Miscellaneous Rx (one pair Diabetic Shoes with Inserts) See instructions Wear for diabetic foot care. Diagnosis: Type II DM, ICD10 E11.65. ?? Unchanged Morphine (morphine 15 mg/ 8 to 12 hr oral tablet, extended release) 1 tab(s) Oral Every 12 hours Duration: 28 Days take as directed Unchanged Nortriptyline (nortriptyline 10 mg oral capsule) See instructions GEORGE 1 CAPSULA CADA MIGUEL A LA HORA DE DORMIR. *NUEVO MEDICAMENTO PARA DOLOR NEUROPATICO. NO GEORGE JUNTO CON TRAZODONE. PUEDE CAUSAR SEDACION ?? Unchanged Oxycodone (oxyCODONE 10 mg oral tablet) 1 tab(s) Oral Every 6 hours as needed for pain Duration: 28 Days Take as directed Pharmacy Information [facility]: [address] [place], [place] [id number] [phone] ?? What How Much When Comments Stop Taking Clopidogrel (clopidogrel 75 mg oral tablet) 1 tab(s) Oral Daily Stop Taking Tamsulosin (Flomax 0.4 mg oral capsule) 2 capsule Oral Daily Duration: 90 Days Prescription Given During Visit Durable Medical Equipment (Compression Stockings) - , # 1 each, surgical, knee length 30-40 mm Hg?? Meclizine (meclizine 12.5 mg oral tablet) - 1 tablet = 12.5 mg, By Mouth, 3 times a day, # 20 tablet, 0 Refills, [facility] [address], [address] [place] [address] [phone]?? Midodrine (midodrine 5 mg oral tablet) - 5 mg, By Mouth, 3 times a day, # 90 tablet, 0 Refills, [facility] [address], [address] [place] [address] [phone]?? Laboratory Results Below is a partial list of the most recent Laboratory test results done prior to this discharge. You may have had other tests and procedures not included in this list. Please discuss all test resultswith your provider. Est Creatinine Clearance - 95.46 mL/min (01/03/2024) Basic Metabolic Panel (01/03/2024) ???Sodium - 137 mmol/L???Potassium - 4.2 mmol/L???Chloride - 98 mmol/L???Bicarbonate Level - 29 mmol/L???Anion Gap - 10???Glucose Level - 168 mg/dL???BUN - 11 mg/dL???Creatinine-Blood - 0.68 mg/dL???Estimated GFR Creatinine - 103 ML/MIN/1.73 M2???Calcium - 8.5 mg/dL CBC w/ Differential (01/03/2024) ???WBC - 7.1 k/mm3???RBC - 4.40 m/mm3???Hgb - 12.9 Gm/dL???Hct - 38.3 %???MCV - 87.0 femtoliters???MCH - 29.3 pg???MCHC - 33.7 g/dL???Platelet Count - 180 k/mm3???RDW-SD - 40.7 femtoliters???MPV - 10.8 femtoliters???Nucleated RBC (Automated) - 0.0 #/100 WBC'S???Abs. NRBC - 0.0 k/mm3???Abs. Neut - 5.3 k/mm3???Abs. Lymph - 1.1 k/mm3???Abs. [place] - 0.5 k/mm3???Abs. Eo - 0.1 k/mm3???Abs. Baso - 0.0 k/mm3???Neut % - 74.5 %???Lymph % - 16.1 %???[place] % - 6.9 %???Eos % - 1.8 %???Baso % - 0.1 %???Imm Gran - 0.6 %???Abs. Imm Gran - 0.0 k/mm3 Cortisol Level (01/04/2024) ???Cortisol Level - 14.8 ??g/dL GLUCOSE POC (01/04/2024) ???Glucose, POC - 278 mg/dL HOLD LAVENDER TUBE (01/04/2024) ???Hold Lavender Top - SPECIMEN DISCARDED AFTER 24 HOURS. LIPID PANEL (01/03/2024) ???Cholesterol - 140 mg/dL???Triglycerides - 68 mg/dL???HDL Cholesterol - 44 mg/dL???LDL Cholesterol - 82 mg/dL???Non HDL Cholesterol - 96 mg/dL Troponin T, High Sensitivity (01/04/2024) ???High Sensitivity Troponin (HSTnT) - 30 ng/L TSH (01/04/2024) ???TSH - 0.92 uIU/mL TSH with T4 Reflex (Adults Only) (01/03/2024) ???TSH - 1.64 uIU/mL Allergies (NKA means No Known Allergies) metFORMIN??(GI symptoms) Problems Active Problems??(18) Anxiety and depression?? BPH with urinary obstruction?? CAD (coronary artery disease)?? Chronic pain syndrome?? Controlled substance agreement signed 01-19-23?? Diabetic autonomic neuropathy?? Diabetic nephropathy?? Diabetic peripheral neuropathy?? Dysphagia?? Hallucinations?? Hyperlipidemia?? Hypertension?? Ischemic cardiomyopathy EF 40% 04/2022; akinetic apex?? Orthostatic hypotension - severe, resulting in recurrent falls?? Presence of implanted infusion pump?? T1DM (type 1 diabetes mellitus)?? Thrombocytopenia?? TIA (transient ischemic attack)?? Education Materials Below is the list of Educational Leaflet Providered with your Discharge Instructions. Web[employer] Ignite Patient Education - Hypotension, Orthostatic?? [employer] Ignite Patient Education - Transient Ischemic Attack (TIA) Outpatient Instructions?? Valuables and Belongings I fully understand and agree that [facility] accepts no responsibility for all my personal [...] to send valuables and belongings home. ?? Date for Pt to Sign Valuables/Belongings: 01/03/24 19:47:00 ?? Other Discharge Information ? Case Management Discharge Plan?? Discharge Plan?? Discharge Agency Information?? Discharge Level of Care at Discharge: Homehealth/VNA Name of Agency #1: [facility] Discharge VNA/Hospice/Home Care: [facility] [phone] Agency Internet Marketing Analyst #1: [phone] ?? Service Categories #1: Physical Therapy, Group Home ?? Service Comments #1: A nurse kinjal trujillo in 1-2 days to arrange a visit, please call [phone] with questions or concerns ?? Pulmonary Rehab Status?? Pulmonary Rehab Discharge Status?? Respiratory Rate: 18 br/min ? Common Emergency Awareness Tips IS [...] are strongly encouraged to quit. Please call [facility] markedup Link at [phone] or [phone] ([phone]) or log in to [email or web address] for referrals to smoking cessation programs. ?? 293 Suicide & Crisis Lifeline is available 05/02 if you or someone you know needs to find a reason to keep living. By calling 909 you'll be connected to a skilled, trained counselor at a crisis center in your area. INPATIENT DISCHARGE INSTRUCTIONS SIGNATURE PAGE PARIS ROJO Location:[facility] Registration Date and Time:01/03/2024 11:36 EDT Primary Care Physician: Claire Trujillo MD, Attending Physician: Jaimie Lofton MD, I PARIS ROJO, have received the above patient education materials/instructions and have verbalized understanding. If ambulance or transport services are being used I further acknowledge beinggiven a choice of service. ?? If you need to contact me, please call me at this number: . Patient/Measurement Technician Name: Patient/Measurement Technician Signature: Relationship to Patient: Witness Name/Signature: Date: * Jaimie Lofton MD: PERFORM Event Display: Patient Education Leaflets Authored Date: [id number] Hypotension, Orthostatic ?? [id number] Hipotensi??n Ortost??maria l [Orthostatic Hypotension] El rango normal de la presi??n arterial es entre 90/60??y 140/80. La presi??n arterial baja (tambi??n llamada hipotensi??n) es noah disminuci??n de la presi??n??arterial de lo que es normal para usted. La hipotensi??n ortost??maria l es un tipo de presi??n arterial baja que ocurre solamente cuando se cambia la posici??n del cuerpo de acostado a parado. Puede causar s??ntomas de mareo,??aturdimiento o desmayo. Algunas de las causas de la hipotensi??n ortost??maria l: ??? Ciertos medicamentos, incluyendo: o Medicamentos para la presi??n arterial o Diur??ticos (p??ldoras de agua) o Algunos medicamentos para el coraz??n o Algunos antidepresivos o Medicamentos para el dolor, la ansiedad, sedativos y tao para dormir ??? Deshidrataci??n (por v??cara, diarrea o poco consumo de l??quidos) ??? Infecci??n severa, fiebre esequiel ??? P??rdida de leonard (por ejemplo poruna??hemorragia estomacal o intestinal) El tratamiento depender?? de la causa de ma presi??n arterial baja. Cuidado En [place]: 1. Descanse hasta que mejoren los s??ntomas. 2. Cambie lentamente de la posici??n de estar acostadoa estar de pie. Cuando se levante de la cama, si??ntese en el borde de la cama con leticia piernas hacia abajo florence por lo menos 30 segundos antes de ponerse de pie. [place] le da al cuerpo tiempo de ajus tarse al cambio de posici??n. 3. Siga el plan de tratamiento descrito por ma m??dico. Seguimiento con ma m??dico o de acuerdo con lo recomendado por nuestro personal. Busque Prontamente Atenci??n M??dica si algo de lo siguiente ocurre: ??? Mareo, aturdimiento o desmayo ??? Color negruzco o rojizo en??las materias fecales o en el v??cara ??? Diarrea o v??cara persistentes ??? Incapacidad de comer o beber ??? Fiebre de 100.4??F (38??C) o m??s esequiel, o linda le haya indicado ma proveedor de atenci??n m??dica ??? Ardor al orinar u orina con olor desagradable Last Reviewed Date: 2016 ?? [id number] [employer]. Todos los derechos reservados. Esta informaci??n no pretende sustituir la atenci??n m??dica profesional. S??lo ma m??dico puede diagnosticar y tratar un problema de anjana. ?? * Nabila BALL Chen: PERFORM Event Display: Patient Education Leaflets Authored Date: [id number] Transient Ischemic Attack (TIA) Outpatient Instructions ?? 559 Transient Ischemic Attack (TIA) Outpatient Instructions ? You were seen in the Emergency Department today for evaluation of your neurologic symptoms. Because your symptoms got better, you may have had a TIA. ?? We performed a physical exam, monitored your vital signs and neurologic status, obtained lab work, and completed imaging of your brain. Your test results have been shared with you. A lipid panel and Hemoglobin A1C were collected and will be reviewed with you at the time of your follow up stroke clinic appointment. ? You will receive a call from the stroke clinic within the next few days to arrange an appointment with a vascular neurologist. If you do not receive a call from our stroke clinic, please contact [phone] and tell them you need an ???urgent TIA appointment.? During the stroke clinic appointment you will be evaluated by a vascular neurologist.?? He/she willreview the results of your lipid panel and HbA1c with you. They may recommend that you have furthertesting such as an MRI. ?? Please call your primary care physician and arrange to meet with them to make sure that you are otherwise doing well, and your other medical conditions (if any) are being managed appropriately. ?? MEDICATIONS (what you need to take) : If not contraindicated, you were given a prescription for Aspirin 81mg (if you are not already taking) and Clopidogrel 75mg. These are both to be taken once daily. ?? Discharge Instructions for Transient Ischemic Attack (TIA) What Is??a TIA? A TIA (transient ischemic attack) is an early warning that a stroke (also called a brain attack) iscoming. A TIA is a temporary stroke. It causes no lasting damage. But the effects of a stroke, if it happens, can be very serious and lasting. If you think you are having symptoms of a TIA or stroke???even if they don???t last???get medical help right away. TIA is also known as a mini-stroke. Bloodcould not reach part of your brain for a short period of time. Unlike a stroke, a TIA does not usually cause lasting damage. If you think you are having symptoms of a TIA or stroke,??get medical helpright away. Do this even if your symptoms go away.? Symptoms of TIA and stroke Symptoms may come on suddenly and last for a few seconds or a few hours. You may have symptoms onlyonce. Or they may come and go for days. If you notice any of the following symptoms, don???t wait. Call??911??or emergency services right away. ??? Weakness, numbness, tingling, or loss of feeling in your face, arm, or leg ??? Trouble seeing in one or both eyes; double vision ??? Slurred speech, trouble talking, or problems understanding others when they speak ??? Sudden, severe headache ??? Dizziness or a feeling of spinning ??? Loss of balance or falling ??? Blackouts F.A.S.T. ??is an easy way to remember the signs of a stroke. When you see the signs, you will know what you need to call??911??fast.?? F.A.S.T. stands for:? F ??is for face drooping. One side of the face is drooping or numb. When the person smiles, thesmile is uneven. ??? A?? is for arm weakness. One arm is weak or numb. When the person lifts both arms and the same time, one arm may drift downward. ??? S?? is for speech difficulty. You may notice slurred speech or trouble speaking. The person can't repeat a simple sentence correctly when asked. ??? T?? is for time to call??911. If someone shows any of these symptoms, even if they go away, call??911??right away. Make note of the time the symptoms first appeared. Prevention ??? Take your medicines exactly as directed. Don???t skip doses. ??? Learn to take your blood pressure. Write down the numbers and tell your healthcare provider. ??? Learn your cholesterol level. Follow your doctor???s advice about how to keep cholesterol under control. Make these lifestyle changes: ??? Quit smoking.?? Join a stop-smoking program to improve your chances of success. Ask your healthcare provider about medicines or other methods to help you quit. ??? Limit your alcohol.?? Don't have more than 2 drinks a day if you're a man and no more than 1 drink a day if you're a woman. ??? Keep a healthy weight.?? Get help to lose any extra pounds (kilograms). If you are overweight, your healthcare provider will work with you to lose weight and lower your body mass index (BMI) to a normal or near-normal level. Making diet changes and increasing physical activity can help. ??? Start an exercise program.?? Ask your healthcare provider how to get started and how much activity you should try to get on a daily or weekly basis. You can benefit from simple activities such as walking or gardening. ??? Learn ways to manage your stress. ??There are many methods to manage stress. These can help you deal with stress in your home and work life. You may also need to change what you eat. Your healthcare provider may refer you to a registered dietitian for help with diet changes. These changes may include: ??? Eating less fat and cholesterol ??? Having less salt (sodium), especially if you have high blood pressure ??? Eating more fresh vegetables and fruits ??? Eating lean proteins, such as fish, poultry, and legumes (beans and peas) ??? Eating less red meat and processed meats ??? Choosing low-fat dairy products ??? Using vegetable and nut oils in small amounts ??? Limiting sweet and processed foods such as chips, cookies, and baked goods To cut back on sodium: ??? Limit the amount of canned, dried, packaged, and fast foods you eat. ??? Don???t add salt to your food. ??? Season foods with herbs instead of salt when you cook. Call??911 Call??911??right away if you have any of these: ??? Weakness, tingling, or loss of feeling on 1 side of your face or body ??? Sudden double vision,or trouble seeing in 1 or both eyes ??? Sudden trouble talking, or slurring your speech ??? Troubleunderstanding other people speaking ??? Sudden, severe headache ??? Dizziness, loss of balance, a spinning feeling, or a sense of falling ??? Blackouts ??? Seizures ? Patient Care team information Care Team Personnel Name: Sorin Moser RN Position: [facility] RN Member Role: Primary Care Nurse Name: Ya Wilson RN Position: [facility] RN Member Role: Primary Care Nurse Name: Brandi Wei RN Position: [facility] RN Member Role: Primary Care Nurse Name: Valentina Leiva RN Position: [facility] SN RN Member Role: Primary Care Nurse Name: Macarena Bedolla Position: [facility] Outreach Member Role: Lifetime Consulting Physician Name: Abigail Yang RN Position: [facility] Onco RN Member Role: Primary Care Nurse Name: Claire Trujillo MD Position: [facility] Physician - Primary Care Member Role: PCP Address: Address: [address] [place], [place] [address] Name: Heidi Dao Position: S RN Member Role: Primary Care Nurse Care Team Related Persons Name: JOEL BRIZUELA Address: home [address] [place] [id number]
--- OUTSIDE RECORDS SUMMARY | 2024-01-10 21:11 | XMS_ITS | Continuity of Care Document ---
Author Organization [facility] Address [address] [place] [address]- Care Team Providers Care Industrial Controls Technician Name Role Phone Claire Trujillo MD Primary Care Physician Encounter [facility] Date(s): 11/27/23 - 12/27/[address] [address]- Allergies, Adverse Reactions, Alerts Substance Reaction Severity Status metFORMIN 1 GI symptoms Active 1GI intolreance Immunizations Given and Recorded Vaccine Date Status Refusal Reason zoster vaccine, inactivated 1 09/21/23 Recorded tetanus/diphtheria/pertussis, acel(Tdap) 2 09/21/23 Recorded tetanus/diphtheria/pertussis, acel(Tdap) 01/11/17 Given pneumococcal 20-valent conjugate vaccine 3 09/21/23 Recorded SARS-CoV-2 mRNA (vnwufmi-rcwt-flfrn) vax 03/03/22 Given SARS-CoV-2 mRNA (ouassub-kbix-lnwjj) vax 08/27/21 Given SARS-CoV-2 (COVID-19) mRNA BNT-162b2 [...] Gm, 0 Refills, Maintenance, 11/27/22 11:10:00 EDT, Prashanth, [facility], Partial fill upon patient request [...] 09/09/23 9:59:00 EST, Route to Pharmacy Electronically, [facility]... Start Date: 09/09/23 Stop Date: 09/03/24 [...] 05/02/23 16:08:00 EDT, Route to Pharmacy Electronically, [facility], Partial fill upon patient request if the pr... Start Date: 05/02/23 Stop Date: 07/01/23 Status: Ordered docusate sodium 100 mg oral tablet 1 tablet = 100 mg, By Mouth, 2 times a day, PRN for constipation, # 60 tablet, 0 Refills, Maintenance, 11/13/23 13:28:00 EDT, Tablet, [facility]/pharmacy #[id number], Partial fill upon patient request if the prescription is for a schedule II opioid drug., 165, cm,... Start Date: 11/13/23 Status: Ordered famotidine 10 mg oral tablet 1 tablet = 10 mg, By Mouth, 2 times a day, # 180 tablet, 3 Refills, Maintenance, 12/19/23 15:26:00 EDT, Tablet, [facility]/pharmacy #[id number], Partial fill upon patient request if the prescription is for a schedule II opioid drug., 165, cm, 11/21/23 14:15:00 EDT... Start Date: 12/19/23 Stop Date: 12/13/24 Status: Ordered finasteride 5 mg oral tablet = 5 mg, By Mouth, Daily, # 30 tablet, 2 Refills, Maintenance, 12/13/23 12:34:00 EDT, Tablet, [facility]/pharmacy #[id number], Partial fill upon patient request if the prescription is for a schedule II opioid drug., 165, cm, 11/21/23 14:15:00 EDT, Height, 77, kg, 0... Start Date: 12/13/23 Stop Date: 03/12/24 Status: Ordered Flomax 0.4 mg oral capsule 0.8 mg, 2, capsule, By Mouth, Daily, # 180 capsule, Refills 1, Tot. Refills 1, Maintenance, 10/03/23 13:04:00 EDT, Route to Pharmacy Electronically, [facility]., Partial fill upon patient request if [...] E10.42 duration: 99 weeks. Fax to [facility], 05/11/21 11:23:00 EDT, Supply Start Date: 05/11/21 Status: Ordered Home blood pressure monitor Home blood pressure monitor, See Instructions, # 1 each, Refills 0, Tot. Refills 0, Maintenance, ICD 10 I95.1; E11. 43 ALEIDA: [facility]22 12:53:00 EST, Supply Start Date: [...] 30 units, # 15 mL, 1 Refills, 12/27/23... Start Date: 12/27/23 Status: Ordered isosorbide mononitrate 30 mg oral tablet, extended release 30 mg, 1, tablet, By Mouth, Daily at bedtime, Para el paty. Noelle antes de acostarse., # 90 tablet, Refills 3, Tot. Refills 3, Maintenance, 09/09/23 9:57:00 EST, Route to Pharmacy Electronically, [facility], Partial fill upon patien... Start Date: 09/09/23 Stop Date: 09/03/24 Status: Ordered Jardiance 25 mg oral tablet 1 tablet = 25 mg, By Mouth, Daily in AM, # 90 tablet, 3 Refills, Maintenance, 09/09/23 9:59:00 EST,[facility], Partial fill upon patient [...] 09/27/24 13:03:00 EDT, 10/03/23 13:03:00 EDT, Injection, [facility]., increase in dose, 166, cm, 09/24/23 15:24:00... Start Date: 10/03/23 Stop Date: 09/27/24 Status: Ordered Lantus Solostar Pen 100 units/mL subcutaneous solution = 23 units, Subcutaneous Injection, Daily at bedtime, Insulina de 24 horas., # 15 mL, 1 Refills, Maintenance, 04/26/24 16:08:00 EDT, Injection, [facility]., No insurance (Medicare not active until 06/15). Please dispense via 340B., 165,... Start Date: 04/26/24 Status: Ordered Lipitor 80 mg oral tablet 1 tablet = 80 mg, By Mouth, Daily at bedtime, para colesterol / proteger el paty/ arterias tapadas en el paty, # 90 tablet, 3 Refills, Maintenance, 09/09/23 9:59:00 EST, Tablet, [facility]., Partial fill upon patient request, 166,... [...] 09/09/23 9:57:00 EST, Route to Pharmacy Electronically, [facility]... Start Date: 09/09/23 Stop Date: 09/03/24 Status: Ordered morphine 15 mg/8 to 12 hr oral tablet, extended release 1 tablet = 15 mg, By Mouth, Every 12 hours, # 56 tablet, 0 Refills, Maintenance, 12/17/23 11:36:00 EDT, ER Tablet, [facility]/pharmacy #[id number], Partial fill upon patient request if the [...] days, # 20 tablet, 0 Refills, Acute 12/30/23 15:24:00 EDT, 12/25/23 15:24:00 EDT, Tablet, [facility]/pharmacy #[id number], Partial fill upon patient request if the prescription is for a schedul... Start Date: 12/25/23 Stop Date: 12/30/23 Status: Ordered one pair Diabetic Shoes with [...] Acute 01/14/24 11:36:00 EDT, 12/17/23 11:36:00 EDT, [facility]/pharmacy #[id number], Partial fill upon patient [...] 93kg, 11/21/21 16:40:00 EDT, sent to [facility]. Start Date: 11/21/21 Status: Ordered [...] Care Nurse Name: Ya Wilson RN Position: [facility] [...] Care Member Role: PCP Address: Address: [address] [place] [address]- Name: Heidi Dao Position: [facility] RN Member Role: Primary Care Nurse Care Team Related Persons Name: JOEL BRIZUELA Address: home [address] [place] [address]
--- OUTSIDE RECORDS SUMMARY | 2024-01-10 21:12 | XMS_ITS | Continuity of Care Document ---
Author Organization [facility] Address [address] [place] [address]- Care Team Providers Care Minister Helper Name Role Phone Claire Trujillo MD Primary Care Physician [place] [facility] [place] 11/21/23 - 12/21/[address] [address]- Allergies, Adverse Reactions, Alerts Substance Reaction Severity Status metFORMIN 1 GI symptoms Active 1GI intolreance Immunizations Given and Recorded Vaccine Date Status Refusal Reason zoster vaccine, inactivated 1 09/21/23 Recorded tetanus/diphtheria/pertussis, acel(Tdap) 2 09/21/23 Recorded tetanus/diphtheria/pertussis, acel(Tdap) 01/11/17 Given pneumococcal 20-valent conjugate vaccine 3 09/21/23 Recorded SARS-CoV-2 mRNA (gickmde-ilfz-cjmcn) vax 03/03/22 Given SARS-CoV-2 mRNA (kcrzpkn-evan-njgcn) vax 08/27/21 Given SARS-CoV-2 (COVID-19) mRNA BNT-162b2 [...] Refills, Maintenance, 11/27/22 11:10:00 EDT, [facility] upon [...] 09/09/23 9:59:00 EST, Route to Pharmacy Electronically, [facility]... Start Date: 09/09/23 Stop Date: 09/03/24 [...] 05/02/23 16:08:00 EDT, Route to Pharmacy Electronically, [facility], Partial fill upon patient request if the pr... Start Date: 05/02/23 Stop Date: 07/01/23 Status: Ordered docusate sodium 100 mg oral tablet 1 tablet = 100 mg, By Mouth, 2 times a day, PRN for constipation, # 60 tablet, 0 Refills, Maintenance, 11/13/23 13:28:00 EDT, Tablet, [facility]/pharmacy #[id number], Partial fill upon patient request if the prescription is for a schedule II opioid drug., 165, cm,... Start Date: 11/13/23 Status: Ordered famotidine 10 mg oral tablet 1 tablet = 10 mg, By Mouth, 2 times a day, # 180 tablet, 3 Refills, Maintenance, 12/19/23 15:26:00 EDT, Tablet, [facility]/pharmacy #[id number], Partial fill upon patient request if the prescription is for a schedule II opioid drug., 165, cm, 11/21/23 14:15:00 EDT... Start Date: 12/19/23 Stop Date: 12/13/24 Status: Ordered finasteride 5 mg oral tablet = 5 mg, By Mouth, Daily, # 30 tablet, 2 Refills, Maintenance, 12/13/23 12:34:00 EDT, Tablet, [facility]/pharmacy #[id number], Partial fill upon patient request if [...] E10.42 duration: 99 weeks. Fax to Cheryl ([facility]), 05/11/21 11:23:00 EDT, Supply Start [...] each, 11 Refills, Maintenance, 12/20/23 12:06:00 EDT, [facility]/pharmacy #44... Start Date: 12/20/23 Status: Ordered HumaLOG [...] 09/27/24 13:03:00 EDT, 10/03/23 13:03:00 EDT, Injection, [facility]., increase in dose, 166, cm, 09/24/23 15:24:00... [...] 3 Refills, Maintenance, 09/09/23 9:59:00 EST, Tablet, [facility]., Partial fill upon patient request, 166,... Start [...] 09/09/23 9:57:00 EST, Route to Pharmacy Electronically, [facility]... Start Date: 09/09/23 Stop Date: 09/03/24 Status: Ordered morphine 15 mg/8 to 12 hr oral tablet, extended release 1 tablet = 15 mg, By Mouth, Every 12 hours, # 56 tablet, 0 Refills, Maintenance, 12/17/23 11:36:00 EDT, ER Tablet, [facility]/pharmacy #[id number], Partial fill upon patient request if the [...] Acute 01/14/24 11:36:00 EDT, 12/17/23 11:36:00 EDT, [facility]/pharmacy #[id number], Partial fill upon patient request ifthe [...] Care Nurse Name: Ya Wilson RN Position: [facility] [...] Consulting Physician Name: Abigail Yang RN Position: [facility] Onco RN Member Role: Primary Care Nurse Name: Claire Trujillo MD Position: [facility] Physician - Primary Care Member Role: PCP Address: Address: [address] [place] [id number]- Name: Heidi Dao Position: [facility] RN Member Role: Primary Care Nurse Care Team Related Persons Name: GELACIO JOEL Address: [facility] [address] [place] [address]
--- OUTSIDE RECORDS SUMMARY | 2024-01-10 21:13 | XMS_ITS | Continuity of Care Document ---
Author Organization [facility] Address [address] [place] [address]- Care Team Providers Care Exhauster Name Role Phone Claire Trujillo MD Primary Care Physician [place] [facility]/27[place]23 - 12/27/[address] [address]- Allergies, Adverse Reactions, Alerts Substance Reaction Severity Status metFORMIN 1 GI symptoms Active 1GI intolreance Immunizations Given and Recorded Vaccine Date Status Refusal Reason zoster vaccine, inactivated 1 09/21/23 Recorded tetanus/diphtheria/pertussis, acel(Tdap) 2 09/21/23 Recorded tetanus/diphtheria/pertussis, acel(Tdap) 01/11/17 Given pneumococcal 20-valent conjugate vaccine 3 09/21/23 Recorded SARS-CoV-2 mRNA (sllvewd-vagc-jgcoe) vax 03/03/22 Given SARS-CoV-2 mRNA (tmvbixu-sewi-mpktl) vax 08/27/21 Given SARS-CoV-2 (COVID-19) mRNA BNT-162b2 [...] 0 Refills, Maintenance, 11/27/22 11:10:00 EDT, Prashanth, [facility], Partial fill upon patient request if the prescri... Start Date: 11/27/22 Status: Ordered Ankle foot orthostis Ankle foot orthostis, See Instructions, # 1 each, Refills 0, Tot. Refills 0, Maintenance, E11.40 needed for 99 weeks Fax to [facility], 09/24/23 17:56:00 EDT, Supply Start Date: 09/24/23 Status: Ordered aspirin 81 mg oral delayed release tablet 81 mg, 1, tablet, By Mouth, Daily, blood thinner/ hace la leonard mas cullen - para proteger el paty/ arterias tapadas en el paty, # 90 tablet, Refills 3, Tot. Refills 3, Maintenance, 09/09/23 9:59:00 EST, Route to Pharmacy Electronically, [facility]... Start Date: 09/09/23 Stop Date: [...] 99, 03/21/23 15:04:00 EDT, Supply Start Date: 9/6/23 Status: Ordered Compression stockings, thigh-high Compression stockings, [...] 05/02/23 16:08:00 EDT, Route to Pharmacy Electronically, [facility], Partial fill upon patient request if the pr... Start Date: 05/02/23 Stop Date: 07/01/23 Status: Ordered docusate sodium 100 mg oral tablet 1 tablet = 100 mg, By Mouth, 2 times a day, PRN for constipation, # 60 tablet, 0 Refills, Maintenance, 11/13/23 13:28:00 EDT, Tablet, [facility]/pharmacy #[id number], Partial fill upon patient request if the prescription is for a schedule II opioid drug., 165, cm,... Start Date: 11/13/23 Status: Ordered famotidine 10 mg oral tablet 1 tablet = 10 mg, By Mouth, 2 times a day, # 180 tablet, 3 Refills, Maintenance, 12/19/23 15:26:00 EDT, Tablet, [facility]/pharmacy #[id number], Partial fill upon patient request if the prescription is for a schedule II opioid drug., 165, cm, 11/21/23 14:15:00 EDT... Start Date: 12/19/23 Stop Date: 12/13/24 Status: Ordered finasteride 5 mg oral tablet = 5 mg, By Mouth, Daily, # 30 tablet, 2 Refills, Maintenance, 12/13/23 12:34:00 EDT, Tablet, [facility]/pharmacy #[id number], Partial fill upon patient request if the prescription is for a schedule II opioid drug., 165, cm, 11/21/23 14:15:00 EDT, Height, 77, kg, 0... Start Date: 12/13/23 Stop Date: 03/12/24 Status: Ordered Flomax 0.4 mg oral capsule 0.8 mg, 2, capsule, By Mouth, Daily, # 180 capsule, Refills 1, Tot. Refills 1, Maintenance, 10/03/23 13:04:00 EDT, Route to Pharmacy Electronically, [facility]., Partial fill upon patient request if [...] E10.42 duration: 99 weeks. Fax to Cheryl [facility], 05/11/21 11:23:00 EDT, Supply Start Date: 05/11/21 Status: Ordered Home blood pressure monitor Home blood pressure monitor, See Instructions, # 1 each, Refills 0, Tot. Refills 0, Maintenance, ICD 10 I95.1; E11. 43 ALEIDA: 99 [facility] 12:53:00 EST, Supply Start Date: [...] each, 11 Refills, Maintenance, 12/20/23 12:06:00 EDT, [facility]/pharmacy #44... Start Date: 12/20/23 Status: Ordered HumaLOG [...] [facility], Partial fill upon patien... Start Date: 09/09/23 Stop Date: 09/03/24 Status: Ordered Jardiance 25 mg oral tablet 1 tablet = 25 mg, By Mouth, Daily in AM, # 90 tablet, 3 Refills, Maintenance, 09/09/23 9:59:00 EST,[facility], Partial fill upon [...] 09/27/24 13:03:00 EDT, 10/03/23 13:03:00 EDT, Injection, [facility]., increase in dose, 166, cm, 09/24/23 15:24:00... Start Date: 10/03/23 Stop Date: 09/27/24 Status: Ordered Lantus Solostar Pen 100 units/mL subcutaneous solution = 23 units, Subcutaneous Injection, Daily at bedtime, Insulina de 24 horas., # 15 mL, 1 Refills, Maintenance, 04/26/24 16:08:00 EDT, Injection, [facility]., No insurance (Medicare not active until 06/15). Please dispense via 340B., 165,... Start Date: 04/26/24 Status: Ordered Lipitor 80 mg oral tablet 1 tablet = 80 mg, By Mouth, Daily at bedtime, para colesterol / proteger el paty/ arterias tapadas en el paty, # 90 tablet, 3 Refills, Maintenance, 09/09/23 9:59:00 EST, Tablet, [facility]., Partial fill upon patient request, 166,... [...] 09/09/23 9:57:00 EST, Route to Pharmacy Electronically, [facility]... Start Date: 09/09/23 Stop Date: 09/03/24 Status: Ordered morphine 15 mg/8 to 12 hr oral tablet, extended release 1 tablet = 15 mg, By Mouth, Every 12 hours, # 56 tablet, 0 Refills, Maintenance, 12/17/23 11:36:00 EDT, ER Tablet, [facility]/pharmacy #[id number], Partial fill upon patient request if the [...] 12/30/23 15:24:00 EDT, 12/25/23 15:24:00 EDT, Tablet, [facility]/pharmacy #[id number], Partial fill upon patient request [...] Acute 01/14/24 11:36:00 EDT, 12/17/23 11:36:00 EDT, [facility]/pharmacy #[id number], Partial fill upon patient request ifthe prescription is for a schedule II opioid drug.... Start Date: 12/17/23 Stop Date: 01/14/24 Status: Ordered powerwheel chair powerwheel chair, See Instructions, # 1 each, Refills 0, Tot. 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 99 weeks fax to [facility], 09/24/23 17:56:00 EDT, Supply Start Date: 09/24/23 [...] Team Personnel Name: Sorin Moser RN [facility] RN Member Role: Primary Care Nurse Name: Ya Wilson RN Position: [facility] RN Member Role: Primary Care Nurse Name: Brandi Wei RN Position: [facility] RN Member Role: Primary Care Nurse Name: Valentina Leiva RN Position: [facility] SN RN Member Role: Primary Care Nurse Name: Macarena Bedolla Position: [facility] Outreach Member Role: Lifetime Consulting Physician Name: Abigail Yang RN Position: [facility] Onco RN Member Role: Primary Care Nurse Name: Claire Trujillo MD Position: [facility] Physician - Primary Care Member Role: PCP Address: Address: [address] [place] [address]- Name: Heidi Dao Position: [facility] RN Member Role: Primary Care Nurse Care Team Related Persons Name: JOEL BRIZUELA Address: home [address] [place] [id number]
--- OUTSIDE RECORDS SUMMARY | 2024-01-10 21:14 | XMS_ITS | Continuity of Care Document ---
Author Organization [facility] Address [address] [place] [address]- Care Team Providers Care Rib Knitter Name Role Phone Claire Trujillo MD Primary Care Physician [phone] [place] [facility] 11/27/23 - 12/27/[address] [address]- Allergies, Adverse Reactions, Alerts Substance Reaction Severity Status metFORMIN 1 GI symptoms Active 1GI intolreance Immunizations Given and Recorded Vaccine Date Status Refusal Reason zoster vaccine, inactivated 1 09/21/23 Recorded tetanus/diphtheria/pertussis, acel(Tdap) 2 09/21/23 Recorded tetanus/diphtheria/pertussis, acel(Tdap) 01/11/17 Given pneumococcal 20-valent conjugate vaccine 3 09/21/23 Recorded SARS-CoV-2 mRNA (kiikkga-krkv-poexn) vax 03/03/22 Given SARS-CoV-2 mRNA (mdfehmf-bgtt-oayen) vax 08/27/21 Given SARS-CoV-2 (COVID-19) mRNA BNT-162b2 [...] 0 Refills, Maintenance, 11/27/22 11:10:00 EDT, Prashanth, [facility], Partial fill upon patient request if the prescri... Start Date: 11/27/22 Status: Ordered Ankle foot orthostis Ankle foot orthostis, See Instructions, # 1 each, Refills 0, Tot. Refills 0, Maintenance, E11.40 needed for 99 weeks Fax to [facility], 09/24/23 17:56:00 EDT, Supply Start Date: 09/24/23 Status: Ordered aspirin 81 mg oral delayed release tablet 81 mg, 1, tablet, By Mouth, Daily, blood thinner/ hace la leonard mas cullen - para proteger el paty/ arterias tapadas en el paty, # 90 tablet, Refills 3, Tot. Refills 3, Maintenance, 09/09/23 9:59:00 EST, Route to Pharmacy Electronically, [facility]... Start Date: 09/09/23 Stop Date: 09/03/24 [...] 05/02/23 16:08:00 EDT, Route to Pharmacy Electronically, [facility], Partial fill upon patient [...] 3 Refills, Maintenance, 12/19/23 15:26:00 EDT, Tablet, [facility]/pharmacy #[id number], Partial fill upon patient request if the prescription is for a schedule II opioid drug., 165, cm, 11/21/23 14:15:00 EDT... Start Date: 12/19/23 Stop Date: 12/13/24 Status: Ordered finasteride 5 mg oral tablet = 5 mg, By Mouth, Daily, # 30 tablet, 2 Refills, Maintenance, 12/13/23 12:34:00 EDT, Tablet, [facility]/pharmacy #[id number], [...] 10/03/23 13:04:00 EDT, Route to Pharmacy Electronically, [facility]., Partial fill upon patient request if the [...] E10.42 duration: 99 weeks. Fax to [facility], 05/11/21 11:23:00 EDT, Supply Start [...] each, 11 Refills, Maintenance, 12/20/23 12:06:00 EDT, [facility]/pharmacy #44... Start Date: 12/20/23 Status: Ordered HumaLOG [...] 09/09/23 9:57:00 EST, Route to Pharmacy Electronically, [facility], Partial fill upon patien... Start Date: 09/09/23 Stop Date: 09/03/24 Status: Ordered Jardiance 25 mg oral tablet 1 tablet = 25 mg, By Mouth, Daily in AM, # 90 tablet, 3 Refills, Maintenance, 09/09/23 9:59:00 EST,[facility], Partial fill upon patient request if [...] 09/27/24 13:03:00 EDT, 10/03/23 13:03:00 EDT, Injection, [facility]., increase in dose, 166, cm, 09/24/23 15:24:00... Start Date: 10/03/23 Stop Date: 09/27/24 Status: Ordered Lantus Solostar Pen 100 units/mL subcutaneous solution = 23 units, Subcutaneous Injection, Daily at bedtime, Insulina de 24 horas., # 15 mL, 1 Refills, Maintenance, 04/26/24 16:08:00 EDT, Injection, [facility]., No insurance (Medicare not active until 06/15). Please dispense via 340B., 165,... Start Date: 04/26/24 Status: Ordered Lipitor 80 mg oral tablet 1 tablet = 80 mg, By Mouth, Daily at bedtime, para colesterol / proteger el paty/ arterias tapadas en el paty, # 90 tablet, 3 Refills, Maintenance, 09/09/23 9:59:00 EST, Tablet, [facility]., Partial fill upon patient request, 166,... Start [...] 09/09/23 9:57:00 EST, Route to Pharmacy Electronically, [facility]... Start Date: 09/09/23 Stop Date: 09/03/24 Status: Ordered morphine 15 mg/8 to 12 hr oral tablet, extended release 1 tablet = 15 mg, By Mouth, Every 12 hours, # 56 tablet, 0 Refills, Maintenance, 12/17/23 11:36:00 EDT, ER Tablet, [facility]/pharmacy #[id number], Partial fill upon patient request if the [...] 12/30/23 15:24:00 EDT, 12/25/23 15:24:00 EDT, Tablet, [facility]/pharmacy #[id number], Partial [...] Acute 01/14/24 11:36:00 EDT, 12/17/23 11:36:00 EDT, [facility]/pharmacy #[id number], Partial fill upon patient request ifthe prescription is for a schedule II opioid drug.... Start Date: 12/17/23 Stop Date: 01/14/24 Status: Ordered powerwheel chair powerwheel chair, See Instructions, # 1 each, Refills 0, Tot. 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 Start Date: 11/21/21 Status: Ordered shower [...] Care Nurse Name: Ya Wilson RN Position: [facility] RN Member Role: Primary Care Nurse Name: Brandi Wei RN Position: [facility] RN Member Role: Primary Care Nurse Name: Valentina Leiva RN Position: [facility] SN RN Member Role: Primary Care Nurse Name: Macarena Bedolla Position: [facility] Outreach Member Role: Lifetime Consulting Physician Name: Abigail Yang RN Position: [facility] Onco RN Member Role: Primary Care Nurse Name: Claire Trujillo MD Position: [facility] Physician - Primary Care Member Role: PCP Address: Address: [address] [place] [address]- Name: Heidi Dao Position: [facility] RN Member Role: Primary Care Nurse Care Team Related Persons Name: JOEL BRIZUELA Address: home [address] [place] [id number]
[2024-01-10 21:15] LABS: INTERNATIONAL NORM RATIO 1.2 (0.9-1.1); Prothrombin Time 14.1 SEC (11.1-13.3)
[2024-01-10 21:19] LABS: Lactic Acid 1.3 mmol/L (0.5-2.0)
[2024-01-10 21:24] LABS: Alanine Aminotransferase 12 U/L (0-40); Albumin Level 3.5 g/dL (3.5-5.0); Alkaline Phosphatase 183 U/L (39-117); Anion Gap 13 (12-20); Aspartate Amino Transferase 17 U/L (5-37); Bilirubin Total 1.1 mg/dL (0.0-1.0); Blood Urea Nitrogen 13 mg/dL (9-16); Carbon Dioxide 27 mmol/L (22-29); Chloride 100 mmol/L (96-108); Creatinine Clr Calc Pharmacy 91.3; Estimated Glomerular Filt Rate > 60; Glucose Random 154 mg/dL (60-115); Potassium 3.9 mmol/L (3.3-5.1); Sodium 136 mmol/L (135-145)
--- NOTE | 2024-01-10 21:27 | ED.GENADULT ---
HPI - General Adult General Chief complaint: General Medical Stated complaint: necrotic wound on L foot, diabetic, 101.6 temp Time Seen by Provider: 01/10/24 21:21 Source: patient Mode of arrival: ambulatory Limitations: no limitations History of Present Illness ED Provider: gini LEMUS narrative: Patient diabetic comes here for worsening of left heel wound for last 1 month treated at [facility] [place] [facility] feeling nauseated low-grade fever for last 4 days when EMS came today had a temperature of 102 degrees. Been feeling weak having body aches and more pain in the left leg was nauseated and vomited once as black-eschar for last 1 month now having some foul-smelling Related Data Home Medications ?Medication ?Instructions ?Recorded ?Confirmed aspirin 81 mg tablet,delayed 81 mg PO DAILY 01/11/24 01/11/24 release atorvastatin 80 mg tablet 80 mg PO DAILY 01/11/24 01/11/24 clopidogrel 75 mg tablet 75 mg PO DAILY 01/11/24 01/11/24 docusate sodium 100 mg tablet 100 mg PO BID PRN constipation 01/11/24 01/11/24 (Stool Softener) empagliflozin 25 mg tablet 25 mg PO DAILY 01/11/24 01/11/24 (Jardiance) famotidine 10 mg tablet (Heartburn 10 mg PO BID 01/11/24 01/11/24 Relief (famotidine)) finasteride 5 mg tablet 5 mg PO DAILY 01/11/24 01/11/24 insulin glargine 100 unit/mL (3 23 unit subcut DAILY 01/11/24 01/11/24 mL) subcutaneous pen (Lantus Solostar U-100 Insulin) insulin lispro 100 unit/mL 1 sliding scale dose subcut TID 01/11/24 01/11/24 subcutaneous pen (Humalog KwikPen (U-100) Insulin) isosorbide mononitrate 30 mg 30 mg PO DAILY 01/11/24 01/11/24 tablet,extended release 24 hr losartan 25 mg tablet 12.5 mg PO DAILY 01/11/24 01/11/24 meclizine 12.5 mg tablet 12.5 mg PO TID PRN dizziness 01/11/24 01/11/24 metoprolol succinate 50 mg 50 mg PO DAILY 01/11/24 01/11/24 tablet,extended release 24 hr midodrine 5 mg tablet 5 mg PO TID 01/11/24 01/11/24 morphine 15 mg tablet,extended 15 mg PO Q12H 01/11/24 01/11/24 release nortriptyline 10 mg capsule 10 mg PO BEDTIME 01/11/24 01/11/24 ondansetron 4 mg disintegrating 4 mg PO Q8H PRN nausea/vomiting 01/11/24 01/11/24 tablet oxycodone 10 mg tablet 10 mg PO Q6H PRN pain 01/11/24 01/11/24 polyethylene glycol 3350 17 17 g PO DAILY 01/11/24 01/11/24 gram/dose oral powder (Gavilax) sennosides 8.6 mg tablet (senna) 17.2 mg PO DAILY 01/11/24 01/11/24 tamsulosin 0.4 mg capsule 0.8 mg PO DAILY 01/11/24 01/11/24 Allergies Allergy/AdvReac Type Severity Reaction Status Date / Time metformin [Metformin] Allergy Mild ? Verified 01/10/24 20:32 INTOLERANCE Review of Systems Review of Systems: Yes all other systems are reviewed and are negative [facility] Past Medical History Medical History Heart attack Hypercholesterolemia HTN (hypertension) Diabetes Social History Social History Household Members: None Housing: Apartment Patient Tobacco Use Status: Never used Tobacco service: No Physical Exam ED Vital Signs: Vital Signs - 24 hr 01/10/24 23:11 Temperature 100.2 F Pulse Rate 78 Respiratory Rate 16 Blood Pressure 119/58 L Pulse Oximetry 99 Oxygen Delivery Method Room Air BMI result Body Mass Index 27.3 Appearance: Alert. Oriented X3. No acute distress. Eyes: No pallor or icterus ENT: Pharynx normal. Oral Mucosa moist Neck: Normal inspection. Neck supple. CVS: Normal heart rate and rhythm. Pulses normal. Respiratory: No respiratory distress. Equal air entry bilateral, no wheezing/rales/rhonchi Abdomen: Soft and nontender. Bowel sounds are present, no mass palpable, no CVA tenderness Skin: Skin warm and dry. Normal skin color. Normal skin turgor. Extremities: No lower extremity edema. Left heel necrotic blackish eschar with local warmth and redness Neuro: Oriented X 3. No motor deficit. No sensory deficit.No cerebellar signs , cranial nerves II-XII intact Medications Administered Generic Name Dose Route Start Last Admin Trade Name Freq PRN Reason Stop Dose Admin Acetaminophen 975 mg 01/11/24 00:34 01/11/24 13:53 Acetaminophen 325 Mg Tablet PO 975 mg Q6H PRN Administration Pain, Mild (Pain Scale 1-3), fever or headache Famotidine 10 mg 01/11/24 21:00 01/11/24 21:20 Famotidine 20 Mg Tablet PO 10 mg BID TANYA Administration Heparin Sodium (Porcine) 5,000 unit 01/11/24 09:00 01/11/24 16:33 Heparin Sodium,Porcine 5,000 Unit/Ml Vial SUBCUT 5,000 unit Q8H TANYA Administration Piperacillin Sod/Tazobactam 50 mls @ 100 mls/hr 01/11/24 06:00 01/11/24 17:51 Sod 3.375 gm/ Sodium Chloride IV Infused Q6H [facility] Infusion Vancomycin HCl 1,000 mg/ 270 mls @ 270 mls/hr 01/11/24 14:00 01/11/24 14:39 Sodium Chloride IV Infused Q12H [facility] Infusion Insulin Human Lispro 0 unit 01/11/24 21:00 01/11/24 21:20 Insulin Lispro 100 Unit/Ml 3 Ml Vial SUBCUT 6 unit QIDACHS [facility] Administration Protocol Insulin Pump 1 each 01/11/24 07:30 01/11/24 21:08 Subcutaneous Insulin Pump SUBCUT Not Given QIDAS [facility] Protocol Morphine Sulfate 15 mg 01/11/24 06:00 01/11/24 17:53 Morphine Sulfate Er 15 Mg Tablet.Er PO 15 mg Q12H TANYA Administration Morphine Sulfate 4 mg 01/11/24 10:52 01/11/24 17:17 Morphine Sulfate 4 Mg/Ml Cartridge IVPUSH 4 mg Q4H PRN Administration Pain, Severe (Pain Scale 7-10) Protocol Nortriptyline HCl 10 mg 01/11/24 21:00 01/11/24 21:20 Nortriptyline Hcl 10 Mg Capsule PO 10 mg BEDTIME TANYA Administration Sodium Chloride 3 ml 01/11/24 08:00 01/11/24 20:09 0.9 % Sodium Chloride Flush 3 Ml Syringe IVFLUSH 3 ml QSHIFT TANYA Administration Discontinued Medications Generic Name Dose Route Start Last Admin Trade Name Azael PRN Reason Stop Dose Admin Acetaminophen 650 mg 01/10/24 23:59 01/11/24 00:13 Acetaminophen 325 Mg Tablet PO 01/11/24 00:00 650 mg ONCE ONE Administration Gadobutrol 7.5 ml 01/11/24 13:14 01/11/24 13:15 Gadobutrol 7.5 Ml Vial IVPUSH 01/11/24 13:15 7 ml ONCE ONE Administration Sodium Chloride 1,000 mls @ 999 mls/hr 01/10/24 22:13 01/11/24 00:05 Ns IV 01/10/24 23:13 Infused .Q1H1M ONE Infusion Vancomycin HCl 1,500 mg/ 500 mls @ 333.333 mls/hr 01/10/24 22:13 01/11/24 01:19 Sodium Chloride IV 01/10/24 23:42 Infused ONCE ONE Infusion Piperacillin Sod/Tazobactam 50 mls @ 100 mls/hr 01/10/24 22:13 01/10/24 23:46 Sod 3.375 gm/ Sodium Chloride IV 01/10/24 22:42 Infused ONCE ONE Infusion Lactated Ringer's 1,000 mls @ 125 mls/hr 01/11/24 00:45 01/11/24 19:06 Lr IVCONT 01/11/24 12:44 Infused .Q8H TANYA Infusion Vancomycin HCl 1,000 mg/ 270 mls @ 270 mls/hr 01/11/24 12:00 01/11/24 13:31 Sodium Chloride IV Not Given Q12H [facility] Morphine Sulfate 4 mg 01/10/24 23:59 01/11/24 00:13 Morphine Sulfate 4 Mg/Ml Cartridge IVPUSH 01/11/24 00:00 4 mg ONCE ONE Administration Protocol Morphine Sulfate 15 mg 01/11/24 00:34 01/11/24 02:08 Morphine Sulfate Immed Release 15 Mg Tablet PO 01/11/24 00:35 15 mg ONCE STA Administration Ondansetron HCl 4 mg 01/10/24 23:59 01/11/24 00:13 Ondansetron Hcl 4 Mg/2 Ml Vial IVPUSH 01/11/24 00:00 4 mg ONCE ONE Administration Medical Decision Making Medical Decision Making MDM Narrative: Patient diabetic with infected wound of left heel with necrotic area will admit for surgical debridement and IV antibiotics will admit to hospitalist service for further evaluation Differential Diagnosis Differential Diagnoses: The differential diagnosis associated with the presentation includes Diabetic wound/osteomyelitis/ Admission/Observation Consideration of admission/observation: Escalation of care including admission/observation considered Consult Healthcare Provider Management of the patient was discussed with: Hospitalist Lab Data MDM Lab Attestation statement: I reviewed the patient's lab results. 01/11/24 07:55 01/11/24 07:55 Labs: Lab Results 01/10/24 01/10/24 01/10/24 Range/Units 20:56 20:57 21:07 WBC 9.5 (4.8-10.8) X10*3/uL RBC 4.48 L (4.60-5.80) X10*6/uL Hgb 12.9 L (14.0-18.0) g/dl Hct 38.0 L (42.0-52.0) % MCV 84.8 (80.0-98.0) fL MCH 28.8 (27.0-33.0) pg MCHC 33.9 (31.0-36.0) g/dl RDW 12.4 (11.0-16.0) % Plt Count 233 (160-400) X10*3/uL MPV 10.4 (9.4-12.4) fL Immature Gran % (Auto) 0.5 H (0.0-0.4) % Neut % (Auto) 81.4 H (45-73) % Lymph % (Auto) 11.0 L (20-40) % [place] % (Auto) 6.3 (2-11) % Eos % (Auto) 0.6 (0-4) % Baso % (Auto) 0.2 (0-2) % Lymph # (Auto) 1.1 L (1.2-4.9) X10*3/uL [place] # (Auto) 0.6 (0.1-1.2) X10*3/uL Eos # (Auto) 0.1 (0.0-0.4) X10*3/uL Baso # (Auto) 0.0 (0.0-0.2) X10*3/uL Abs Immat Gran (auto) 0.05 H (0.00-0.03) X10*3/uL Absolute Neuts (auto) 7.7 (2.0-8.3) x10*3/uL Absolute Nucleated RBC 0.000 (0.0-0.012) X10*3/uL Nucleated RBC % (auto) 0.0 (0.0-0.2) /100WBC PT 14.1 H (11.1-13.3) SEC INR 1.2 H (0.9-1.1) Sodium 136 (135-145) mmol/L Potassium 3.9 (3.3-5.1) mmol/L Chloride 100 (96-108) mmol/L Carbon Dioxide 27 (22-29) mmol/L Anion Gap 13 (12-20) BUN 13 (9-16) mg/dL Creatinine 0.76 (0.5-1.4) mg/dL Estim Creat Clear Calc 91.3 Estimated GFR > 60 Random Glucose 154 H (60-115) mg/dL Lactic Acid 1.3 (0.5-2.0) mmol/L Calcium 9.0 (8.4-10.2) mg/dL Total Bilirubin 1.1 H (0.0-1.0) mg/dL AST 17 (5-37) U/L ALT 12 (0-40) U/L Alkaline Phosphatase 183 H (39-117) U/L C-Reactive Protein 8.69 H (< or = 0.50) mg/dL Total Protein 7.0 (6.5-8.0) g/dL Albumin 3.5 (3.5-5.0) g/dL Influenza Type A (PCR) NEGATIVE (Negative) Influenza Type B (PCR) NEGATIVE (Negative) RSV RNA Qual (PCR) NEGATIVE (Negative) SARS-CoV-2 RNA (RT-PCR) NEGATIVE (Negative) Discharge Plan Discharge Clinical Impression: Ulcer of left foot Qualifiers: Non-pressure ulcer stage: with necrosis of muscle Qualified Code(s): L97.523 - Non-pressure chronic ulcer of other part of left foot with necrosis of muscle Fever Qualifiers: Fever type: due to other condition Qualified Code(s): R50.81 - Fever presenting with conditions classified elsewhere Patient Disposition: Admitted As Inpatient Interventions: Admission Worksheet (ED) Last Done: 06/28/24 01:01 Discharge Date/Time: 01/11/24 01:45
[2024-01-10 22:05] LABS: Influenza A PCR NEGATIVE (Negative); Influenza B PCR NEGATIVE (Negative); Resp Syncy Virus RNA Qual PCR NEGATIVE (Negative); SARS COV2 PCR INHOUSE NEGATIVE (Negative)
[2024-01-10] MEDS: Piperacillin Sodium/Tazobactam 3.375 GM in 0.9 % Sodium Chloride 50 ML IV (22:45)
[2024-01-10] MEDS: 0.9 % Sodium Chloride 1,000 ML 999 ML IV (22:45)
[2024-01-10 23:11] VITALS: BP 119/58; PULSE 78; RESP 16; TEMP 37.9; O2SAT 99
[2024-01-10] MEDS: vancomycin HCL 1,500 MG in 0.9 % Sodium Chloride 500 ML 333.33 MG IV (23:43)
[2024-01-11] MEDS: ondansetron HCL 4 MG/2 ML VIAL IVPUSH (00:13)
[2024-01-11] MEDS: Acetaminophen 325 MG TABLET 650 MG PO (00:13)
[2024-01-11] MEDS: Morphine Sulfate 4 MG/ML CARTRIDGE IVPUSH ×3 (00:13→17:17)
[2024-01-11 00:43] LABS: C Reactive Protein 8.69 mg/dL (< or = 0.50)
--- NOTE | 2024-01-11 00:44 | PM.IMHP ---
History of Present Illness Date of Service: 01/11/24 Attending physician on admission: Rubi Smith Chief Complaint: Fever Escobar Tse is a 63 years old man with past medical history significant for diabetes mellitus on insulin pump, chronic left heel ulcer, hyperlipidemia and hypertension presents to the emergency department after he had an event of fever (102) this morning associated with generalized body aches, chills, nausea, vomiting and dizziness. He denied chest pain, sore throat, cough, shortness of breath, abdominal pain, diarrhea or pain with urination. He mentioned that he left heel ulcer is foul-smelling. He has been getting of patient follow-up for this ulcer. He denied alcohol abuse, tobacco smoking or illicit drug use. In the ED, he was found to have fever of 102.8, there is no tachycardia or hypotension. His oxygen saturation is normal on room air. Blood workup showed no leukocytosis. Hemoglobin is 12.9 and platelets are normal. CRP is 8.69. INR is 1.2. There are no electrolyte imbalances, renal function is normal. LFTs are unremarkable except for slight elevation of bilirubin and alk-phos. Left foot x-ray, results pending. ED tx: NS 1 L bolus, vancomycin 1.5 g IV, Zosyn 3.375 g IV, morphine 4 mg IV, Zofran 4 mg IV, acetaminophen 650 mg PO. Review of Systems Review of Systems: All 12 systems were reviewed and normal except as noted in HPI. [facility] Medical History Heart attack Hypercholesterolemia HTN (hypertension) Diabetes Social History Patient Tobacco Use Status: Never used Tobacco Meds Allergies Allergy/AdvReac Type Severity Reaction Status Date / Time metformin [Metformin] Allergy Mild ? Verified 01/10/24 20:32 INTOLERANCE Active Medications: Current Medications Acetaminophen (Acetaminophen 325 Mg Tablet) 975 mg PO Q6H PRN PRN Reason: Pain, Mild (Pain Scale 1-3), fever or headache Heparin Sodium (Porcine) (Heparin Sodium,Porcine 5,000 Unit/Ml Vial) 5,000 unit SUBCUT Q8H TANYA Piperacillin Sod/Tazobactam (Sod 3.375 gm/ Sodium Chloride) 50 mls @ 100 mls/hr IV Q6H [facility] Lactated Ringer's (Lr) 1,000 mls @ 125 mls/hr IVCONT .Q8H [facility] Stop: 01/11/24 12:44 Insulin Pump (Subcutaneous Insulin Pump) 1 each SUBCUT QIDACHS [facility]; Protocol Morphine Sulfate (Morphine Sulfate Immed Release 15 Mg Tablet) 15 mg PO ONCE STA Stop: 01/11/24 00:35 Morphine Sulfate (Morphine Sulfate Er 15 Mg Tablet.Er) 15 mg PO Q12H [facility] Pharmacy Consult (Consult Rx Vancomycin Dosing) 1 each MISCELLANE DAILY PRN PRN Reason: Consult order Sodium Chloride (0.9 % Sodium Chloride Flush 3 Ml Syringe) 3 ml IVFLUSH QSHIFT [facility] Home Medications ?Medication ?Instructions ?Recorded ?Confirmed ?Last Taken ?Type morphine 15 mg tablet,extended 15 mg PO Q12H 01/11/24 01/11/24 Unknown History release Physical Exam Vital Signs and Narrative: Vital Signs: Last Vital Signs Temp 100.2 F 01/10/24 23:11 Pulse 78 01/10/24 23:11 Resp 16 01/10/24 23:11 BP 119/58 L 01/10/24 23:11 Pulse Ox 99 01/10/24 23:11 O2 Del Method Room Air 01/10/24 23:11 BMI result Body Mass Index 27.3 Constitutional - Awake and Alert, No apparent distress. Looks uncomfortable due to body aches. Cooperative. HEENT - Pupils equally round. Normal sclerae. Moist oral mucosa. Heart - RRR, No edema Lungs - Normal lung expansion, Normal respiratory effort, No respiratory distress, CTA bilaterally Abdomen - NT / ND; +BS; No rebound or guarding Extremities - left foot: Necrotic heel with erythematous borders foul-smelling discharge (Pseudomonas). Musculoskeletal - Normal inspection, normal ROM Skin - Warm/Dry Neurological - Alert & oriented x3. No focal weakness. Normal speech. Psychological - Appropriate affect Results Labs 01/10/24 20:56 01/10/24 20:56 Labs: Laboratory Results - last 24 hr 01/10/24 01/10/24 01/10/24 20:56 20:57 21:07 MCV 84.8 MCH 28.8 MCHC 33.9 RDW 12.4 Plt Count 233 MPV 10.4 Immature Gran % (Auto) 0.5 H Neut % (Auto) 81.4 H Lymph % (Auto) 11.0 L [place] % (Auto) 6.3 Eos % (Auto) 0.6 Baso % (Auto) 0.2 Lymph # (Auto) 1.1 L [place] # (Auto) 0.6 Eos # (Auto) 0.1 Baso # (Auto) 0.0 Abs Immat Gran (auto) 0.05 H Absolute Neuts (auto) 7.7 Absolute Nucleated RBC 0.000 Nucleated RBC % (auto) 0.0 PT 14.1 H INR 1.2 H Anion Gap 13 Estim Creat Clear Calc 91.3 Estimated GFR > 60 Random Glucose 154 H Lactic Acid 1.3 Calcium 9.0 Total Bilirubin 1.1 H AST 17 ALT 12 Alkaline Phosphatase 183 H C-Reactive Protein 8.69 H Total Protein 7.0 Albumin 3.5 Influenza Type A (PCR) NEGATIVE Influenza Type B (PCR) NEGATIVE RSV RNA Qual (PCR) NEGATIVE SARS-CoV-2 RNA (RT-PCR) NEGATIVE Assessment and Plan (1) Foot ulcer, left: Qualifiers: Non-pressure ulcer stage: with necrosis of muscle Qualified Code(s): L97.523 - Non-pressure chronic ulcer of other part of left foot with necrosis of muscle Status: Acute (2) Fever: Qualifiers: Fever type: due to other condition Qualified Code(s): R50.81 - Fever presenting with conditions classified elsewhere Status: Acute Plan Escobar Tse is a 63 y/o man admitted with: Left heel infected necrotic diabetic ulcer; rule out osteomyelitis. Admit to hospitalist service. Continue empiric IV antibiotic therapy with ceftriaxone and azithromycin. Continue IV fluids. Left foot MRI. Surgery consult. Fever likely secondary to above. No tachycardia or hypotension. Continue with IV antibiotics. Blood culture obtained -will follow results. Type 2 diabetes mellitus. Patient has his own insulin pump. Check BG before meals at bedtime (no need for fingersticks). Diabetic diet. Essential hypertension. Continue metoprolol. Heart disease. Continue aspirin, statin, Plavix and disorder. Code status: Full DVT prophylaxis: heparin subcut Patient will need hospitalization for at least 2 midnights for left heel infected necrotic ulcer treatment with IV antibiotics and evaluation by Surgical Service. Quality Stroke Does the patient have a stroke diagnosis?: No VTE Prior VTE?: No VTE Risk Level:: Medical - moderate - high VTE Device Contraindication: Treatment Not Indicated VTE Drug Contraindication: N/A - Med Ordered
[2024-01-11 01:20] VITALS: BP 123/62; PULSE 70; RESP 16; TEMP 36.8; O2SAT 96
--- NOTE | 2024-01-11 01:24 | PC.NURSE ---
pt reports relief of pain from iv morphine administration. will hold off on po morphine for now.
[2024-01-11] MEDS: Lactated Ringers 1,000 ML 125 ML IVCONT ×2 (01:28→10:48)
[2024-01-11 01:52] VITALS: BMI 26.5
[2024-01-11 02:08] VITALS: BP 112/58; PULSE 71; RESP 18; TEMP 36.6; O2SAT 98
[2024-01-11] MEDS: Morphine Sulfate Immed Release 15 MG TABLET PO (02:08)
--- NOTE | 2024-01-11 02:45 | PC.NURSE ---
pt has insulin pump in right upper quadrant and disk on left upper arm . His son is [employer] and helps him with it. pt was instructed to bring insulin here so is available to be changed when needed.
[2024-01-11 03:14] VITALS: BP 117/60; PULSE 66; RESP 18; TEMP 36.4; O2SAT 99
[2024-01-11] MEDS: Morphine Sulfate ER 15 MG TABLET.ER PO ×2 (05:57→17:53)
[2024-01-11] MEDS: Piperacillin Sodium/Tazobactam 3.375 GM in 0.9 % Sodium Chloride 50 ML IV ×3 (06:00→17:19)
--- NOTE | 2024-01-11 06:54 | PHA.PROG ---
Admission Date/Time: January 11, 2024 00:34 Indication: SKIN Weight in k.2 kg Adjusted body weight in Kg: [place] body weight in Kg: Obesity Dosing Indication % IBW: Serum Creatinine - Last 168 Hours 01/10/24 20:56 Creatinine 0.76 Estimated CrCl and GFR - Last 168 Hours 01/10/24 20:56 Estim Creat Clear Calc 91.3 Estimated GFR > 60 Vancomycin Loading Dose: 1500 MG Current Vancomycin Dosing Regimen: 1000 MG Q12H Vancomycin Monitoring using AUC goal of 400 - 600 range with trough as surrogate marker: IGI=320 TROUGH=15.9 Date and Time for next Vancomycin Level to be drawn: 01/12/24 @1000 Pharmacist Comments on Vancomycin Plan: Vancomycin dosing will take advantage of [employer] as a clinical decision support tool that uses Bayesian modeling to calculate individual patient's pharmacokinetic parameters and forecast the patient's drug concentration time course with the target goal AUC 24 range of 400 - 600 mg/L/hr.
[2024-01-11 07:19] LABS: Glucose, Whole Blood 99 mg/dL (60-115)
[2024-01-11 09:24] LABS: MANUAL DIFF FLAG NO
[2024-01-11 09:31] LABS: Basophils Percent Auto 0.1 % (0-2); Eosinophils Absolute Auto 0.2 X10*3/uL (0.0-0.4); Eosinophils Percent Auto 2.3 % (0-4); Hematocrit 35.8 % (42.0-52.0); Hemoglobin 11.8 g/dl (14.0-18.0); Imm Gran Abs Auto 0.04 X10*3/uL (0.00-0.03); Imm Gran Pct Auto 0.4 % (0.0-0.4); Lymphocytes Absolute Auto 1.3 X10*3/uL (1.2-4.9); Lymphocytes Percent Auto 14.4 % (20-40); Mean Corpuscular Hemoglobin 28.2 pg (27.0-33.0); Mean Corpuscular Volume 85.4 fL (80.0-98.0); Mean Platelet Volume 11.2 fL (9.4-12.4); Monocytes Absolute Auto 0.8 X10*3/uL (0.1-1.2); Monocytes Percent Auto 8.2 % (2-11); Neutrophils Absolute Auto 6.8 x10*3/uL (2.0-8.3); Neutrophils Percent Auto 74.6 % (45-73); Platelet Count 210 X10*3/uL (160-400); Red Blood Count 4.19 X10*6/uL (4.60-5.80); Red Cell Distribution Width 12.4 % (11.0-16.0); White Blood Count 9.1 X10*3/uL (4.8-10.8)
[2024-01-11 09:44] LABS: Anion Gap 15 (12-20); Blood Urea Nitrogen 11 mg/dL (9-16); Calcium 8.3 mg/dL (8.4-10.2); Carbon Dioxide 23 mmol/L (22-29); Chloride 104 mmol/L (96-108); Creatinine Clr Calc Pharmacy 90.2; Estimated Glomerular Filt Rate > 60; Glucose Random 96 mg/dL (60-115); Potassium 3.5 mmol/L (3.3-5.1); Sodium 138 mmol/L (135-145)
--- NOTE | 2024-01-11 10:20 | HO.WOUND ---
Wound Consult: Initial 63yr old?Male admitted to [facility] [place] [facility] on 01/11/24 - See progress notes and H&P for detailed history.? Wound consult placed for Left Heel Diabetic Wound.? Patient agreeable to assessment and photo documentation.? Chart review reveals patient treats at the outpatient wound clinic for the left heel it appears he was last seen 12/20/23. Wound appears to be progressing and is now with foul odor. Foul odor noted upon entering patient room, no dressing in place at this time elevate off of bed surface with pillows and dry flow pad for drainage - there is scant amato pink drainage noted on bed pad. Patient denies pain reports neuropathy. There is significant swelling noted to the lateral malleolus soft warm red and fluctuant - recommend surgery consult for debridement assessment. Consult pending. Lateral Left Heel Posterior view Left heel medial view Etiology: ??Diabetic Wound Measurements: 4cm x 7cm x 0.2cm Wound Bed: dry and moist black eschar Drainage / Odor: Foul odor noted Edges: irregular and lifting ? Nissa wound: ?Swelling and fluctuance noted , red warm to touch periwound - No Induration noted Pain: denies reports neuropathy Goals of Treatment: ? betadine and defer to surgery team for evaluation for debridement Recommendations: 1. Turn and Reposition every 2 hours and as needed for patient comfort.? Use pillows to support off loading positions. 2. Off Load all bony prominences with use of pillows and heel boots if needed.? Apply Preventative foams where needed. ? 3. Monitor for incontinence and moisture control, use barrier creams when needed for prevention and treatment. 4. Provide adequate and supplemental nutrition.? 5. Order low air loss mattress. 6. Maintain blood glucose levels per Providers order. 7. Left Heel - Elevate heels off of bed surface with pillows and once dressing in place make sure of heel protector boots. Cleanse with Betadine and allow to dry, may cover with dry ABD pad and gauze wrap. Change Daily. Re-consult wound care Nurse for wound deterioration or wound changes.
--- NOTE | 2024-01-11 10:20 | MHC.CM.PN ---
Addendum entered by Ericka Rodriguez 01/12/24 14:06: PT, JOEL, AND ROC ALSO REPORT PTS [facility] WAS NOT CARING FOR HIS WOUNDS PROPERLY, THEY ARE REQUESTING A REFERRAL TO A NEW [facility] Addendum entered by Ericka Rodriguez 01/12/24 14:05: CM MET WITH PT AND S/O, JOEL, AT BEDSIDE WITH RESTAURANT BUSSER PT WOULD LIKE TO COMPLETE A NEW HCP ADDING JOEL'S SON, WHO IS ALSO PTS WATERPROOFER, ROC BRIZUELA, THE ALTERNATE JOEL WILL REMAIN PRIMARY AGENT NEW HCP COMPLETED AND NOW ON FILE Original Note: This instructional writer met with patient along with lease picker. Pt reports currently staying with the mother of his children d/t recent dizziness. [facility] Uses an electric wheelchair and walker for assistance. Reports having a HCP copy @ home. 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 [facility] for wound care 3x weekly. Return referral placed. DCP: Home w/ resumption of services Joel to transport @ d/c.
[2024-01-11] MEDS: Subcutaneous Insulin Pump 1 EACH SUBCUT ×3 (10:38→16:31)
[2024-01-11 11:19] LABS: Glucose, Whole Blood 99 mg/dL (60-115)
--- NOTE | 2024-01-11 11:41 | P.CONGS_ITS ---
History of Present Illness Consult details Consult date: 01/11/24 Narrative: Escobar Tse is a 63 years old man with PMH significant for diabetes mellitus on insulin pump, hyperlipidemia and hypertension presents to the ED with complaints of fever. He had a fever of 102 this morning associated with generalized body aches, chills, nausea, vomiting and dizziness. He has had a left heel ulcer for 3 months and reports it is now foul-smelling. He was admitted to the medical service for further treatment of the necrotic left heel ulcer, r/o osteomyelitis. He was started on IV vanco. Left foot xray shows soft tissue swelling at the heel without radiographic findings of osteomyelitis. MRI is pending. General surgery was consulted for further evaluation. Review of Systems 2 Constitutional: Constitutional: Reports fever(s) Cardiovascular: Cardiovascular: Denies chest pain and Denies dyspnea Respiratory: Respiratory: Denies cough and Denies dyspnea Gastrointestinal: Gastrointestinal: Denies nausea and Denies vomiting Integumentary/Breasts: Skin/Breast: Reports as per [facility] Past Medical History Medical History Heart attack Hypercholesterolemia HTN (hypertension) Diabetes Social History Social History Household Members: None Housing: Apartment Patient Tobacco Use Status: Never used Tobacco service: No Meds Allergies Allergy/AdvReac Type Severity Reaction Status Date / Time metformin [Metformin] Allergy Mild ? Verified 01/10/24 20:32 INTOLERANCE Active Medications: Current Medications Acetaminophen (Acetaminophen 325 Mg Tablet) 975 mg PO Q6H PRN PRN Reason: Pain, Mild (Pain Scale 1-3), fever or headache Heparin Sodium (Porcine) (Heparin Sodium,Porcine 5,000 Unit/Ml Vial) 5,000 unit SUBCUT Q8H [facility] Last Admin: 01/11/24 10:36 Dose: Not Given Piperacillin Sod/Tazobactam (Sod 3.375 gm/ Sodium Chloride) 50 mls @ 100 mls/hr IV Q6H [facility] Last Admin: 01/11/24 11:35 Dose: 100 mls/hr Lactated Ringer's (Lr) 1,000 mls @ 125 mls/hr IVCONT .Q8H [facility] Stop: 01/11/24 12:44 Last Admin: 01/11/24 10:48 Dose: 125 mls/hr Vancomycin HCl 1,000 mg/ (Sodium Chloride) 270 mls @ 270 mls/hr IV Q12H [facility] Insulin Pump (Subcutaneous Insulin Pump) 1 each SUBCUT QIDACHS [facility]; Protocol Last Admin: 01/11/24 10:38 Dose: 1 each Morphine Sulfate (Morphine Sulfate Er 15 Mg Tablet.Er) 15 mg PO Q12H [facility] Last Admin: 01/11/24 05:57 Dose: 15 mg Morphine Sulfate (Morphine Sulfate 4 Mg/Ml Cartridge) 4 mg IVPUSH Q4H PRN; Protocol PRN Reason: Pain, Severe (Pain Scale 7-10) Last Admin: 01/11/24 11:14 Dose: 4 mg Ondansetron HCl (Ondansetron Hcl 4 Mg/2 Ml Vial) 4 mg IVPUSH Q4H PRN PRN Reason: Nausea and Vomiting Pharmacy Consult (Consult Rx Vancomycin Dosing) 1 each MISCELLANE DAILY PRN PRN Reason: Consult order Sodium Chloride (0.9 % Sodium Chloride Flush 3 Ml Syringe) 3 ml IVFLUSH QSHIFT [facility] Last Admin: 01/11/24 08:06 Dose: Not Given Home Medications ?Medication ?Instructions ?Recorded ?Confirmed ?Last Taken ?Type aspirin 81 mg tablet,delayed 81 mg PO DAILY 01/11/24 Unknown History release atorvastatin 80 mg tablet 80 mg PO DAILY 01/11/24 Unknown History clopidogrel 75 mg tablet 75 mg PO DAILY 01/11/24 Unknown History docusate sodium 100 mg tablet 100 mg PO BID PRN constipation 01/11/24 Unknown History (Stool Softener) empagliflozin 25 mg tablet 25 mg PO DAILY 01/11/24 Unknown History (Jardiance) famotidine 10 mg tablet (Heartburn 10 mg PO BID 01/11/24 Unknown History Relief (famotidine)) finasteride 5 mg tablet 5 mg PO DAILY 01/11/24 Unknown History insulin glargine 100 unit/mL (3 unit subcut 01/11/24 Unknown History mL) subcutaneous pen (Lantus Solostar U-100 Insulin) insulin lispro 100 unit/mL subcut 01/11/24 Unknown History subcutaneous pen (Humalog KwikPen (U-100) Insulin) isosorbide mononitrate 30 mg 30 mg PO DAILY 01/11/24 Unknown History tablet,extended release 24 hr losartan 25 mg tablet PO 01/11/24 Unknown History meclizine 12.5 mg tablet 12.5 mg PO TID PRN dizziness 01/11/24 Unknown History metoprolol succinate 50 mg 50 mg PO DAILY 01/11/24 Unknown History tablet,extended release 24 hr midodrine 5 mg tablet 5 mg PO TID 01/11/24 Unknown History morphine 15 mg tablet,extended 15 mg PO Q12H 01/11/24 Unknown History release nortriptyline 10 mg capsule 10 mg PO BEDTIME 01/11/24 Unknown History ondansetron 4 mg disintegrating 4 mg PO Q8H PRN nausea/vomiting 01/11/24 Unknown History tablet oxycodone 10 mg tablet 10 mg PO Q6H PRN pain 01/11/24 Unknown History polyethylene glycol 3350 17 17 g PO DAILY 01/11/24 Unknown History gram/dose oral powder (Gavilax) sennosides 8.6 mg tablet (senna) 17.2 mg PO DAILY 01/11/24 Unknown History tamsulosin 0.4 mg capsule 0.8 mg PO DAILY 01/11/24 Unknown History Physical Exam 2 Vital Signs: Vital Signs: Last Vital Signs Temp 97.6 F 01/11/24 03:14 Pulse 66 01/11/24 03:14 Resp 18 01/11/24 03:14 BP 117/60 01/11/24 03:14 Pulse Ox 99 01/11/24 03:14 O2 Del Method Room Air 01/11/24 03:14 BMI result Body Mass Index 26.5 Const: General: comfortable, no acute distress and alert O rientation/consciousness: patient oriented x3 Resp: Effort & Inspection: normal respiratory effort Cardio: Rate: regular rate Skin: General skin exam: no rashes or lesions noted Neuro: General: patient oriented x3 and moves all extremities Extrem: Other: left heel with round large thick eschar and surrounding callus measuring roughly 5-6cm with edema and pale erythema extending proximally which was sharply debrided with scissors and scalpel down to subq tissue left dorsalis pedis pulse not palpable Results Labs 01/11/24 07:55 01/11/24 07:55 Labs: Abnormal lab results 01/10/24 01/10/24 01/11/24 Range/Units 20:56 20:57 07:55 RBC 4.48 L 4.19 L (4.60-5.80) X10*6/uL Hgb 12.9 L 11.8 L (14.0-18.0) g/dl Hct 38.0 L 35.8 L (42.0-52.0) % Immature Gran % (Auto) 0.5 H (0.0-0.4) % Neut % (Auto) 81.4 H 74.6 H (45-73) % Lymph % (Auto) 11.0 L 14.4 L (20-40) % Lymph # (Auto) 1.1 L (1.2-4.9) X10*3/uL Abs Immat Gran (auto) 0.05 H 0.04 H (0.00-0.03) X10*3/uL PT 14.1 H (11.1-13.3) SEC INR 1.2 H (0.9-1.1) Random Glucose 154 H (60-115) mg/dL Calcium 8.3 L D (8.4-10.2) mg/dL Total Bilirubin 1.1 H (0.0-1.0) mg/dL Alkaline Phosphatase 183 H (39-117) U/L C-Reactive Protein 8.69 H (< or = 0.50) mg/dL Short CBC 01/10/24 01/11/24 Range/Units 20:56 07:55 WBC 9.5 9.1 (4.8-10.8) X10*3/uL Hgb 12.9 L 11.8 L (14.0-18.0) g/dl Hct 38.0 L 35.8 L (42.0-52.0) % Plt Count 233 210 (160-400) X10*3/uL BMP 01/10/24 01/11/24 20:56 07:55 Sodium 136 138 Potassium 3.9 3.5 Chloride 100 104 Carbon Dioxide 27 23 BUN 13 11 Creatinine 0.76 0.71 Calcium 9.0 8.3 L D Liver Function 01/10/24 Range/Units 20:56 Total Bilirubin 1.1 H (0.0-1.0) mg/dL AST 17 (5-37) U/L ALT 12 (0-40) U/L Alkaline Phosphatase 183 H (39-117) U/L Albumin 3.5 (3.5-5.0) g/dL All other labs normal. Assessment and Plan (1) Foot ulcer, left: Qualifiers: Non-pressure ulcer stage: with necrosis of muscle Qualified Code(s): L 97.523 - Non-pressure chronic ulcer of other part of left foot with necrosis of muscle Status: Acute Plan Escobar Tse is a 63 years old man with PMH significant for diabetes mellitus on insulin pump, hyperlipidemia and hypertension with a chronic left heel ulcer with thick eschar. This area was sharply debrided off with scissors and a scalpel at bedside. Will likely require serial debridements. Wet to dry fluffs followed by dry fluffs and kerlix wrap was placed. There is also absent left pulses. Rec vascular surgery consult for evaluation. Procedures Date of Service Date of Service: 01/11/24
--- NOTE | 2024-01-11 13:03 | PM.EVENT ---
Event Note Date of Service: 01/11/24 Event Note: Seen and evaluated this morning To get Ankle MRI w contrast Surgery to debride the wound area Continue IV antibiotics pending blood cultures IV Morphine PRN for pain Time Spent With Patient Time: Total time managing care of this patient today ____ minutes.
[2024-01-11] MEDS: gadobutroL 7.5 ML VIAL IVPUSH (13:15)
[2024-01-11] MEDS: vancomycin HCL 1,000 MG in 0.9 % Sodium Chloride 250 ML 270 MG IV (13:31)
[2024-01-11 13:47] VITALS: BP 116/63; PULSE 84; RESP 16; TEMP 37.1; O2SAT 98
[2024-01-11] MEDS: Acetaminophen 325 MG TABLET 975 MG PO (13:53)
[2024-01-11 15:39] LABS: Glucose, Whole Blood 161 mg/dL (60-115)
[2024-01-11 16:00] VITALS: BP 130/70; PULSE 78; RESP 14; TEMP 36.8; O2SAT 99
[2024-01-11] MEDS: Heparin Sodium,Porcine 5,000 UNIT/ML VIAL 5000 UNIT SUBCUT (16:33)
[2024-01-11 19:42] VITALS: BP 145/72; PULSE 80; RESP 18; TEMP 36.8; O2SAT 96
--- NOTE | 2024-01-11 19:45 | PHA.MEDREC ---
Pharmacy Consult ? Medication Reconciliation Pharmacy has completed the medication reconciliation. Went and tried to speak to patient with rotor assembler at about 4:30 and patient a little confused but was able to confirm his Lantus Solostar that he takes 23 units daily, Humalog he is using a sliding scale of that TID, his Oxycodone he confirm he is taking 10mg every 6 hours as needed for pain, and his Morphine 15mg Q12H. Other then that patient was not sure what his other medications were and to call his the only thing I could not confirm was his Clopidogrel 75mg blood thinner the patient could not remember that name. I contacted the and she said she would be in with a medication list for us. I went up a few times to see if the was here and when I was there no one but patient was in room. I went through pharmacy claims and noticed his list compared to claims seemed pretty up to date with claims.
[2024-01-11 19:58] LABS: Glucose, Whole Blood 267 mg/dL (60-115)
[2024-01-11] MEDS: 0.9 % Sodium Chloride Flush 3 ML SYRINGE IVFLUSH (20:09)
[2024-01-11] MEDS: Nortriptyline HCl 10 MG CAPSULE PO (21:20)
[2024-01-11] MEDS: Insulin Lispro 100 UNIT/ML 3 ML VIAL SUBCUT (21:20)
[2024-01-11] MEDS: Famotidine 20 MG TABLET 10 MG PO (21:20)
--- NOTE | 2024-01-11 21:24 | MHC.PIE ---
p; poc 267, insuline pump not on pt, pt reports pump sent home with for pump taken off for mri. i; dr ruff notified. new order admelog s/s e; will cont to [facility]
[2024-01-12] VITALS (9 sets, daily range): BP systolic 77–145; BP diastolic 39–69; PULSE 68–83; RESP 16–20; TEMP 36.5–36.7; O2SAT 96–98
[2024-01-12] MEDS: Piperacillin Sodium/Tazobactam 3.375 GM in 0.9 % Sodium Chloride 50 ML IV ×5 (00:06→23:13)
[2024-01-12] MEDS: Heparin Sodium,Porcine 5,000 UNIT/ML VIAL 5000 UNIT SUBCUT ×2 (00:07→07:56)
[2024-01-12] MEDS: vancomycin HCL 1,000 MG in 0.9 % Sodium Chloride 250 ML 270 MG IV ×2 (00:08→13:43)
[2024-01-12] MEDS: Morphine Sulfate ER 15 MG TABLET.ER PO (05:37)
[2024-01-12 06:27] LABS: Hematocrit 33.1 % (42.0-52.0); Hemoglobin 11.3 g/dl (14.0-18.0); Mean Corpuscular HGB Conc 34.1 g/dl (31.0-36.0); Mean Corpuscular Hemoglobin 28.8 pg (27.0-33.0); Mean Corpuscular Volume 84.4 fL (80.0-98.0); Mean Platelet Volume 10.9 fL (9.4-12.4); Platelet Count 209 X10*3/uL (160-400); Red Blood Count 3.92 X10*6/uL (4.60-5.80); Red Cell Distribution Width 12.5 % (11.0-16.0); White Blood Count 8.6 X10*3/uL (4.8-10.8)
[2024-01-12 06:41] LABS: Anion Gap 12 (12-20); Blood Urea Nitrogen 11 mg/dL (9-16); Calcium 8.4 mg/dL (8.4-10.2); Carbon Dioxide 25 mmol/L (22-29); Chloride 104 mmol/L (96-108); Estimated Glomerular Filt Rate > 60; Glucose Random 306 mg/dL (60-115); Potassium 3.6 mmol/L (3.3-5.1); Sodium 137 mmol/L (135-145)
[2024-01-12 07:10] LABS: Glucose, Whole Blood 266 mg/dL (60-115)
[2024-01-12] MEDS: polyethylene glycoL 3350 17 GM POWD.PACK PO (07:56)
[2024-01-12] MEDS: Empagliflozin 25 MG TABLET PO (07:57)
[2024-01-12] MEDS: Metoprolol Succinate ER 50 MG TAB.ER.24H PO (07:57)
[2024-01-12] MEDS: Insulin Glargine,Hum.rec.anlog 100 UNIT/ML 10 ML VIAL 16 UNIT SUBCUT (07:57)
[2024-01-12] MEDS: Insulin Lispro 100 UNIT/ML 3 ML VIAL SUBCUT ×3 (07:57→22:08)
[2024-01-12] MEDS: Clopidogrel Bisulfate 75 MG TABLET PO (07:57)
[2024-01-12] MEDS: Sennosides 8.6 MG TABLET 17.2 MG PO (07:57)
[2024-01-12] MEDS: Atorvastatin Calcium 80 MG TABLET PO (07:58)
[2024-01-12] MEDS: Aspirin Enteric Coated 81 MG TABLET.DR PO (07:58)
[2024-01-12] MEDS: Isosorbide Mononitrate 30 MG TAB.ER.24H PO (07:58)
[2024-01-12] MEDS: Finasteride 5 MG TABLET PO (07:58)
[2024-01-12] MEDS: Losartan Potassium 25 MG TABLET 12.5 MG PO (07:58)
[2024-01-12] MEDS: Midodrine HCl 5 MG TABLET PO ×3 (07:58→17:08)
[2024-01-12] MEDS: Tamsulosin HCL 0.4 MG CAPSULE 0.8 MG PO (07:58)
[2024-01-12] MEDS: Famotidine 20 MG TABLET 10 MG PO ×2 (07:59→22:08)
[2024-01-12] MEDS: 0.9 % Sodium Chloride Flush 3 ML SYRINGE IVFLUSH ×3 (07:59→22:10)
--- NOTE | 2024-01-12 10:48 | P.PNIM_ITS ---
Subjective Subjective Date of Service: 01/12/24 Interval History: seen and evaluated this morning the eschar was debride pain under fair control pending cultures Review of Systems Review of Systems: Yes all other systems are reviewed and are negative Physical Exam 2 Vital Signs: Vital Signs: Last Vital Signs Temp 97.7 F 01/12/24 07:01 Pulse 79 01/12/24 07:01 Resp 16 01/12/24 07:01 BP 145/69 H 01/12/24 07:01 Pulse Ox 97 01/12/24 07:01 O2 Del Method Room Air 01/12/24 07:01 BMI result Body Mass Index 26.5 Const: Other: Constitutional : Awake, interactive, not in distress Neck : Normal inspection, Supple Cardiovascular : RRR, no JVP, no lower extremity edema Respiratory : good bilateral air entry, no crackles, wheezes or rhonchi Gastrointestinal: soft, lax, Normal bowel sounds, Non tender Skin : Warm, Dry, LLE heel eschar with decrease pulses Neurological : Alert & oriented x3, No focal deficit Objective Data Active Medications Acetaminophen (Acetaminophen 325 Mg Tablet) 975 mg PO Q6H PRN PRN Reason: Pain, Mild (Pain Scale 1-3), fever or headache Last Admin: 01/11/24 13:53 Dose: 975 mg Documented By: PATRICIA Aspirin (Aspirin Enteric Coated 81 Mg Tablet.) 81 mg PO DAILY [facility] Last Admin: 01/12/24 07:58 Dose: 81 mg Documented By: FREDERICK Atorvastatin Calcium (Atorvastatin Calcium 80 Mg Tablet) 80 mg PO DAILY [facility] Last Admin: 01/12/24 07:58 Dose: 80 mg Documented By: FREDERICK Clopidogrel Bisulfate (Clopidogrel Bisulfate 75 Mg Tablet) 75 mg PO DAILY [facility] Last Admin: 01/12/24 07:57 Dose: 75 mg Documented By: FREDERICK Empagliflozin (Empagliflozin 25 Mg Tablet) 25 mg PO DAILY [facility] Last Admin: 01/12/24 07:57 Dose: 25 mg Documented By: FREDERICK Famotidine (Famotidine 20 Mg Tablet) 10 mg PO BID [facility] Last Admin: 01/12/24 07:59 Dose: 10 mg Documented By: FREDERICK Finasteride (Finasteride 5 Mg Tablet) 5 mg PO DAILY [facility] Last Admin: 01/12/24 07:58 Dose: 5 mg Documented By: FREDERICK Glucose (Glucose Gel 15 Gm Gel..Gram.) 15 gm PO Q15M PRN; Protocol PRN Reason: per Hypoglycemia Standing Ord. Heparin Sodium (Porcine) (Heparin Sodium,Porcine 5,000 Unit/Ml Vial) 5,000 unit SUBCUT Q8H [facility] Last Admin: 01/12/24 07:56 Dose: 5,000 unit Documented By: FREDERICK Piperacillin Sod/Tazobactam (Sod 3.375 gm/ Sodium Chloride) 50 mls @ 100 mls/hr IV Q6H [facility] Last Infusion: 01/12/24 06:18 Dose: Infused Documented By: RENEE Vancomycin HCl 1,000 mg/ (Sodium Chloride) 270 mls @ 270 mls/hr IV Q12H [facility] Last Infusion: 01/12/24 02:15 Dose: Infused Documented By: RENEE Dextrose (D10) 250 mls @ 750 mls/hr IV Q15M PRN; Protocol PRN Reason: per Hypoglycemia Standing Ord. Insulin Glargine (Insulin Glargine,Hum.Rec.Anlog 100 Unit/Ml 10 Ml Vial) 16 unit SUBCUT DAILY [facility] Last Admin: 01/12/24 07:57 Dose: 16 unit Documented By: FREDERICK Insulin Human Lispro (Insulin Lispro 100 Unit/Ml 3 Ml Vial) 0 unit SUBCUT QIDACHS [facility]; Protocol Last Admin: 01/12/24 07:57 Dose: 6 unit Documented By: FREDERICK Insulin Pump (Subcutaneous Insulin Pump) 1 each SUBCUT QIDACHS [facility]; Protocol Last Admin: 01/12/24 07:10 Dose: Not Given Documented By: FREDERICK Non-Admin Reason: pump brought home by Isosorbide Mononitrate (Isosorbide Mononitrate 30 Mg Tab.Er.24h) 30 mg PO DAILY [facility]; Protocol Last Admin: 01/12/24 07:58 Dose: 30 mg Documented By: FREDERICK Losartan Potassium (Losartan Potassium 25 Mg Tablet) 12.5 mg PO DAILY [facility]; Protocol Last Admin: 01/12/24 07:58 Dose: 12.5 mg Documented By: FREDERICK Meclizine HCl (Meclizine Hcl 12.5 Mg Tablet) 12.5 mg PO TID PRN PRN Reason: dizziness Metoprolol Succinate (Metoprolol Succinate Er 50 Mg Tab.Er.24h) 50 mg PO DAILY [facility]; Protocol Last Admin: 01/12/24 07:57 Dose: 50 mg Documented By: FREDERICK Midodrine (Midodrine Hcl 5 Mg Tablet) 5 mg PO TIDWM [facility] Last Admin: 01/12/24 07:58 Dose: 5 mg Documented By: FREDERICK Morphine Sulfate (Morphine Sulfate Er 15 Mg Tablet.Er) 15 mg PO Q12H [facility] Last Admin: 01/12/24 05:37 Dose: 15 mg Documented By: RENEE Morphine Sulfate (Morphine Sulfate 4 Mg/Ml Cartridge) 4 mg IVPUSH Q4H PRN; Protocol PRN Reason: Pain, Severe (Pain Scale 7-10) Last Admin: 01/11/24 17:17 Dose: 4 mg Documented By: PATRICIA Nortriptyline HCl (Nortriptyline Hcl 10 Mg Capsule) 10 mg PO BEDTIME [facility] Last Admin: 01/11/24 21:20 Dose: 10 mg Documented By: RENEE Ondansetron HCl (Ondansetron Hcl 4 Mg/2 Ml Vial) 4 mg IVPUSH Q4H PRN PRN Reason: Nausea and Vomiting Pharmacy Consult (Consult Rx Vancomycin Dosing) 1 each MISCELLANE DAILY PRN PRN Reason: Consult order Polyethylene Glycol (Polyethylene Glycol 3350 17 Gm Powd.Pack) 17 gm PO DAILY [facility] Last Admin: 01/12/24 07:56 Dose: 17 gm Documented By: FREDERICK Senna (Sennosides 8.6 Mg Tablet) 17.2 mg PO DAILY [facility] Last Admin: 01/12/24 07:57 Dose: 17.2 mg Documented By: FREDERICK Sodium Chloride (0.9 % Sodium Chloride Flush 3 Ml Syringe) [facility] Last Admin: 01/12/24 07:59 Dose: 3 ml Documented By: FREDERICK Tamsulosin HCl (Tamsulosin Hcl 0.4 Mg Capsule) 0.8 mg PO DAILY [facility] Last Admin: 01/12/24 07:58 Dose: 0.8 mg Documented By: FREDERICK Labs 01/12/24 05:42 01/12/24 05:42 Labs: Laboratory Results - last 24 hr 01/11/24 01/11/2401/10/24 11:09 15:27 19:55 MCV MCH MCHC RDW Plt Count MPV Absolute Nucleated RBC Nucleated RBC % (auto) Anion Gap Estim Creat Clear Calc Estimated GFR POC Glucose 99 161 H 267 H Random Glucose Calcium 01/12/24 01/12/24 05:42 07:03 MCV 84.4 MCH 28.8 MCHC 34.1 RDW 12.5 Plt Count 209 MPV 10.9 Absolute Nucleated RBC 0.000 Nucleated RBC % (auto) 0.0 Anion Gap 12 Estim Creat Clear Calc 80.0 Estimated GFR > 60 POC Glucose 266 H Random Glucose 306 H Calcium 8.4 Microbiology Microbiology Results: Microbiology 01/10/24 21:07 Blood Culture - Preliminary Blood - Venous No growth after 24 hours. 01/10/24 20:56 Blood Culture - Preliminary Blood - Venous No growth after 24 hours. Assessment and Plan (1) Foot ulcer, left: Status: Acute (2) Eschar of heel: Status: Acute (3) Diabetic foot ulcer associated with type 2 diabetes mellitus: Status: Acute Plan Escobar Tse is a 63 y/o man admitted with: Acute Left heel infected necrotic diabetic ulcer MRI not convincing for osteomyelitis. Pending blood cultures Continue IV Vancomycin and Zosyn DC IV fluids Surgery following, recurrent debridements needed Vascular surgery and ID consults pending Type 2 diabetes mellitus. Patient has his own insulin pump. Check BG before meals at bedtime (no need for fingersticks). Diabetic diet. Essential hypertension. Continue metoprolol. Heart disease. Continue aspirin, statin, Plavix Code status: Full DVT prophylaxis: heparin subcut Patient will need hospitalization overnight for left heel infected necrotic ulcer treatment with IV antibiotics and evaluation by Specialists Quality Stroke Does the patient have a stroke diagnosis?: No VTE Prior VTE?: No VTE Risk Level:: Medical - moderate - high VTE Device Contraindication: Treatment Not Indicated VTE Drug Contraindication: N/A - Med Ordered
[2024-01-12] MEDS: Morphine Sulfate 4 MG/ML CARTRIDGE IVPUSH ×2 (11:26→15:33)
[2024-01-12 11:45] LABS: Glucose, Whole Blood 152 mg/dL (60-115)
[2024-01-12 12:20] LABS: Vancomycin Random 13.7 mcg/mL (15-20)
--- NOTE | 2024-01-12 12:32 | W.PM.IDCN ---
History of Present Illness Data of Consult Service Date: 01/12/24 Requesting physician: Trino Willard Primary Care Provider: Unknown Physician HPI Reason for consult: left heel infection,OM concern He presents with left foot worsening malodor as well as necrotic ulcer,pain and fever to 102. He has blood cultures negative so far. He has diabetes He has been seeing [facility] for a month with no improvement. He was treated with po antibiotics he reports He had wound debrided by Surgery. Review of Systems Review of Systems: Yes all other systems are reviewed and are negative [facility] Past Medical History Medical History Heart attack Hypercholesterolemia HTN (hypertension) Diabetes Social History Social History Household Members: None Housing: Apartment Patient Tobacco Use Status: Never used Tobacco service: No Meds Allergies Allergy/AdvReac Type Severity Reaction Status Date / Time metformin [Metformin] Allergy Mild ? Verified 01/10/24 20:32 INTOLERANCE Active Medications: Current Medications Acetaminophen (Acetaminophen 325 Mg Tablet) 975 mg PO Q6H PRN PRN Reason: Pain, Mild (Pain Scale 1-3), fever or headache Last Admin: 01/11/24 13:53 Dose: 975 mg Aspirin (Aspirin Enteric Coated 81 Mg Tablet.) 81 mg PO DAILY [facility] Last Admin: 01/12/24 07:58 Dose: 81 mg Atorvastatin Calcium (Atorvastatin Calcium 80 Mg Tablet) 80 mg PO DAILY [facility] Last Admin: 01/12/24 07:58 Dose: 80 mg Clopidogrel Bisulfate (Clopidogrel Bisulfate 75 Mg Tablet) 75 mg PO DAILY [facility] Last Admin: 01/12/24 07:57 Dose: 75 mg Empagliflozin (Empagliflozin 25 Mg Tablet) 25 mg PO DAILY [facility] Last Admin: 01/12/24 07:57 Dose: 25 mg Famotidine (Famotidine 20 Mg Tablet) 10 mg PO BID [facility] Last Admin: 01/12/24 07:59 Dose: 10 mg Finasteride (Finasteride 5 Mg Tablet) 5 mg PO DAILY [facility] Last Admin: 01/12/24 07:58 Dose: 5 mg Glucose (Glucose Gel 15 Gm Gel..Gram.) 15 gm PO Q15M PRN; Protocol PRN Reason: per Hypoglycemia Standing Ord. Heparin Sodium (Porcine) (Heparin Sodium,Porcine 5,000 Unit/Ml Vial) 5,000 unit SUBCUT Q8H [facility] Last Admin: 01/12/24 07:56 Dose: 5,000 unit Piperacillin Sod/Tazobactam (Sod 3.375 gm/ Sodium Chloride) 50 mls @ 100 mls/hr IV Q6H [facility] Last Infusion: 01/12/24 12:10 Dose: Infused Vancomycin HCl 1,000 mg/ (Sodium Chloride) 270 mls @ 270 mls/hr IV Q12H [facility] Last Infusion: 01/12/24 02:15 Dose: Infused Dextrose (D10) 250 mls @ 750 mls/hr IV Q15M PRN; Protocol PRN Reason: per Hypoglycemia Standing Ord. Insulin Glargine (Insulin Glargine,Hum.Rec.Anlog 100 Unit/Ml 10 Ml Vial) 16 unit SUBCUT DAILY [facility] Last Admin: 01/12/24 07:57 Dose: 16 unit Insulin Human Lispro (Insulin Lispro 100 Unit/Ml 3 Ml Vial) 0 unit SUBCUT QIDACHS [facility]; Protocol Last Admin: 01/12/24 11:56 Dose: 2 unit Insulin Pump (Subcutaneous Insulin Pump) 1 each SUBCUT QIDACHS [facility]; Protocol Last Admin: 01/12/24 11:33 Dose: Not Given Isosorbide Mononitrate (Isosorbide Mononitrate 30 Mg Tab.Er.24h) 30 mg PO DAILY [facility]; Protocol Last Admin: 01/12/24 07:58 Dose: 30 mg Losartan Potassium (Losartan Potassium 25 Mg Tablet) 12.5 mg PO DAILY [facility]; Protocol Last Admin: 01/12/24 07:58 Dose: 12.5 mg Meclizine HCl (Meclizine Hcl 12.5 Mg Tablet) 12.5 mg PO TID PRN PRN Reason: dizziness Metoprolol Succinate (Metoprolol Succinate Er 50 Mg Tab.Er.24h) 50 mg PO DAILY [facility]; Protocol Last Admin: 01/12/24 07:57 Dose: 50 mg Midodrine (Midodrine Hcl 5 Mg Tablet) 5 mg PO TIDWM [facility] Last Admin: 01/12/24 11:27 Dose: 5 mg Morphine Sulfate (Morphine Sulfate Er 15 Mg Tablet.Er) 15 mg PO Q12H [facility] Last Admin: 01/12/24 05:37 Dose: 15 mg Morphine Sulfate (Morphine Sulfate 4 Mg/Ml Cartridge) 4 mg IVPUSH Q4H PRN; Protocol PRN Reason: Pain, Severe (Pain Scale 7-10) Last Admin: 01/12/24 11:26 Dose: 4 mg Nortriptyline HCl (Nortriptyline Hcl 10 Mg Capsule) 10 mg PO BEDTIME [facility] Last Admin: 01/11/24 21:20 Dose: 10 mg Ondansetron HCl (Ondansetron Hcl 4 Mg/2 Ml Vial) 4 mg IVPUSH Q4H PRN PRN Reason: Nausea and Vomiting Pharmacy Consult (Consult Rx Vancomycin Dosing) 1 each MISCELLANE DAILY PRN PRN Reason: Consult order Polyethylene Glycol (Polyethylene Glycol 3350 17 Gm Powd.Pack) 17 gm PO DAILY [facility] Last Admin: 01/12/24 07:56 Dose: 17 gm Senna (Sennosides 8.6 Mg Tablet) 17.2 mg PO DAILY [facility] Last Admin: 01/12/24 07:57 Dose: 17.2 mg Sodium Chloride (0.9 % Sodium Chloride Flush 3 Ml Syringe) 3 ml IVFLUSH QSHIFT [facility] Last Admin: 01/12/24 07:59 Dose: 3 ml Tamsulosin HCl (Tamsulosin Hcl 0.4 Mg Capsule) 0.8 mg PO DAILY [facility] Last Admin: 01/12/24 07:58 Dose: 0.8 mg Home Medications ?Medication ?Instructions ?Recorded ?Confirmed ?Last Taken ?Type aspirin 81 mg tablet,delayed 81 mg PO DAILY 01/11/24 01/11/24 01/10/24 History release atorvastatin 80 mg tablet 80 mg PO DAILY 01/11/24 01/11/24 01/10/24 History clopidogrel 75 mg tablet 75 mg PO DAILY 01/11/24 01/11/24 01/10/24 History docusate sodium 100 mg tablet 100 mg PO BID PRN constipation 01/11/24 01/11/24 01/10/24 History (Stool Softener) empagliflozin 25 mg tablet 25 mg PO DAILY 01/11/24 01/11/24 01/10/24 History (Jardiance) famotidine 10 mg tablet (Heartburn 10 mg PO BID 01/11/24 01/11/24 01/10/24 History Relief (famotidine)) finasteride 5 mg tablet 5 mg PO DAILY 01/11/24 01/11/24 01/10/24 History insulin glargine 100 unit/mL (3 23 unit subcut DAILY 01/11/24 01/11/24 01/10/24 History mL) subcutaneous pen (Lantus Solostar U-100 Insulin) insulin lispro 100 unit/mL 1 sliding scale dose subcut TID 01/11/24 01/11/24 01/10/24 History subcutaneous pen (Humalog KwikPen (U-100) Insulin) isosorbide mononitrate 30 mg 30 mg PO DAILY 01/11/24 01/11/24 01/10/24 History tablet,extended release 24 hr losartan 25 mg tablet 12.5 mg PO DAILY 01/11/24 01/11/24 01/10/24 History meclizine 12.5 mg tablet 12.5 mg PO TID PRN dizziness 01/11/24 01/11/24 01/10/24 History metoprolol succinate 50 mg 50 mg PO DAILY 01/11/24 01/11/24 01/10/24 History tablet,extended release 24 hr midodrine 5 mg tablet 5 mg PO TID 01/11/24 01/11/24 01/10/24 History morphine 15 mg tablet,extended 15 mg PO Q12H 01/11/24 01/11/24 01/10/24 History release nortriptyline 10 mg capsule 10 mg PO BEDTIME 01/11/24 01/11/24 01/10/24 History ondansetron 4 mg disintegrating 4 mg PO Q8H PRN nausea/vomiting 01/11/24 01/11/24 01/10/24 History tablet oxycodone 10 mg tablet 10 mg PO Q6H PRN pain 01/11/24 01/11/24 01/10/24 History polyethylene glycol 3350 17 17 g PO DAILY 01/11/24 01/11/24 Unknown History gram/dose oral powder (Gavilax) sennosides 8.6 mg tablet (senna) 17.2 mg PO DAILY 01/11/24 01/11/24 01/10/24 History tamsulosin 0.4 mg capsule 0.8 mg PO DAILY 01/11/24 01/11/24 01/10/24 History Physical Exam Vital Signs: Vital Signs: Last Vital Signs Temp 97.7 F 01/12/24 07:01 Pulse 79 01/12/24 07:01 Resp 16 01/12/24 07:01 BP 145/69 H 01/12/24 07:01 Pulse Ox 97 01/12/24 07:01 O2 Del Method Room Air 01/12/24 07:01 BMI result Body Mass Index 26.5 Const: General: cooperative HEENT: Head: Yes normal to inspection Face and sinus: Yes normal facial exam Mouth: Normal oral and palatal mucosa present Teeth and gingiva: dentition normal Eyes: General: appearance normal, both eyes and all related structures Pupils: Equal, round and reactive pupils present Resp: Effort & Inspection: normal respiratory effort Cardio: Rate: regular rate Rhythm: regular rhythm GI: Palpation (GI): Soft to palpation and nontender : General: Yes no CVA tenderness Back/Spine/Pelvis: Back: no CVA tenderness Skin: General skin exam: no rashes or lesions noted Neuro: General: moves all extremities Cranial nerves: Yes Equal, round and reactive pupils present Extrem: Other: necrotic area left heel General: Yes normal to inspection Psych: Appearance: grossly normal Results Labs 01/12/24 05:42 01/12/24 05:42 Labs: Short CBC 01/12/24 Range/Units 05:42 WBC 8.6 (4.8-10.8) X10*3/uL Hgb 11.3 L (14.0-18.0) g/dl Hct 33.1 L (42.0-52.0) % Plt Count 209 (160-400) X10*3/uL BMP 01/12/24 05:42 Sodium 137 Potassium 3.6 Chloride 104 Carbon Dioxide 25 BUN 11 Creatinine 0.80 Calcium 8.4 Microbiology Microbiology Results: Microbiology 01/10/24 21:07 Blood - Venous Blood Culture - Preliminary No growth after 24 hours. 01/10/24 20:56 Blood - Venous Blood Culture - Preliminary No growth after 24 hours. Assessment and Plan (1) Diabetic foot ulcer associated with type 2 diabetes mellitus: Status: Acute (2) Eschar of heel: Status: Acute Plan Even though no definite OM seen on scan there is deep left calcaneal ulcer in setting of diabetes not responding to care with debridement at [facility]. There is possible gram negative and gram positive organisms. Foot is at risk and patient has some diminish pulses and is seeing Vascular. Would continue Vancomycin and piperacillin/tazobactam for now. Await cultures blood. Probable Ertapenem or Vancomycin for six weeks. CRP is elevated but consider check ESR as well.
--- NOTE | 2024-01-12 12:39 | HE.PHANOTE ---
vancomycin addendum: vanco level came back at 13.7 after load plus 2 doses. Predicted AUC 533, will continue current regimen and get another level after an additional 2 doses
--- NOTE | 2024-01-12 14:33 | P.PNGS_ITS ---
Subjective Subjective Date of Service: 01/12/24 Interval history: No new issues or complaints regarding left heel. Physical Exam 2 Vital Signs: Vital Signs: Last Vital Signs Temp 97.7 F 01/12/24 07:01 Pulse 79 01/12/24 07:01 Resp 16 01/12/24 07:01 BP 145/69 H 01/12/24 07:01 Pulse Ox 97 01/12/24 07:01 O2 Del Method Room Air 01/12/24 07:01 BMI result Body Mass Index 26.5 Extrem: Other: Status post wound debridement yesterday/628. Dressing clean dry and intact. For dressing change today. Objective Data Active Medications Acetaminophen (Acetaminophen 325 Mg Tablet) 975 mg PO Q6H PRN PRN Reason: Pain, Mild (Pain Scale 1-3), fever or headache Last Admin: 01/11/24 13:53 Dose: 975 mg Documented By: PATRICIA Aspirin (Aspirin Enteric Coated 81 Mg Tablet.) 81 mg PO DAILY [facility] Last Admin: 01/12/24 07:58 Dose: 81 mg Documented By: FREDERICK Atorvastatin Calcium (Atorvastatin Calcium 80 Mg Tablet) 80 mg PO DAILY [facility] Last Admin: 01/12/24 07:58 Dose: 80 mg Documented By: FREDERICK Clopidogrel Bisulfate (Clopidogrel Bisulfate 75 Mg Tablet) 75 mg PO DAILY [facility] Last Admin: 01/12/24 07:57 Dose: 75 mg Documented By: FREDERICK Empagliflozin (Empagliflozin 25 Mg Tablet) 25 mg PO DAILY [facility] Last Admin: 01/12/24 07:57 Dose: 25 mg Documented By: FREDERICK Famotidine (Famotidine 20 Mg Tablet) 10 mg PO BID [facility] Last Admin: 01/12/24 07:59 Dose: 10 mg Documented By: FREDERICK Finasteride (Finasteride 5 Mg Tablet) 5 mg PO DAILY [facility] Last Admin: 01/12/24 07:58 Dose: 5 mg Documented By: FREDERICK Glucose (Glucose Gel 15 Gm Gel..Gram.) 15 gm PO Q15M PRN; Protocol PRN Reason: per Hypoglycemia Standing Ord. Heparin Sodium (Porcine) (Heparin Sodium,Porcine 5,000 Unit/Ml Vial) 5,000 unit SUBCUT Q8H [facility] Last Admin: 01/12/24 07:56 Dose: 5,000 unit Documented By: FREDERICK Piperacillin Sod/Tazobactam (Sod 3.375 gm/ Sodium Chloride) 50 mls @ 100 mls/hr IV Q6H [facility] Last Infusion: 01/12/24 12:10 Dose: Infused Documented By: FREDERICK Vancomycin HCl 1,000 mg/ (Sodium Chloride) 270 mls @ 270 mls/hr IV Q12H [facility] Last Admin: 01/12/24 13:43 Dose: 270 mls/hr Documented By: FREDERICK Dextrose (D10) 250 mls @ 750 mls/hr IV Q15M PRN; Protocol PRN Reason: per Hypoglycemia Standing Ord. Insulin Glargine (Insulin Glargine,Hum.Rec.Anlog 100 Unit/Ml 10 Ml Vial) 16 unit SUBCUT DAILY [facility] Last Admin: 01/12/24 07:57 Dose: 16 unit Documented By: FREDERICK Insulin Human Lispro (Insulin Lispro 100 Unit/Ml 3 Ml Vial) 0 unit SUBCUT QIDACHS [facility]; Protocol Last Admin: 01/12/24 11:56 Dose: 2 unit Documented By: FREDERICK Insulin Pump (Subcutaneous Insulin Pump) 1 each SUBCUT QIDACHS [facility]; Protocol Last Admin: 01/12/24 11:33 Dose: Not Given Documented By: FREDERICK Non-Admin Reason: pump homewith Isosorbide Mononitrate (Isosorbide Mononitrate 30 Mg Tab.Er.24h) 30 mg PO DAILY [facility]; Protocol Last Admin: 01/12/24 07:58 Dose: 30 mg Documented By: FREDERICK Losartan Potassium (Losartan Potassium 25 Mg Tablet) 12.5 mg PO DAILY [facility]; Protocol Last Admin: 01/12/24 07:58 Dose: 12.5 mg Documented By: FREDERICK Meclizine HCl (Meclizine Hcl 12.5 Mg Tablet) 12.5 mg PO TID PRN PRN Reason: dizziness Metoprolol Succinate (Metoprolol Succinate Er 50 Mg Tab.Er.24h) 50 mg PO DAILY [facility]; Protocol Last Admin: 01/12/24 07:57 Dose: 50 mg Documented By: FREDERICK Midodrine (Midodrine Hcl 5 Mg Tablet) 5 mg PO TIDWM [facility] Last Admin: 01/12/24 11:27 Dose: 5 mg Documented By: FREDERICK Morphine Sulfate (Morphine Sulfate Er 15 Mg Tablet.Er) 15 mg PO Q12H [facility] Last Admin: 01/12/24 05:37 Dose: 15 mg Documented By: RENEE Morphine Sulfate (Morphine Sulfate 4 Mg/Ml Cartridge) 4 mg IVPUSH Q4H PRN; Protocol PRN Reason: Pain, Severe (Pain Scale 7-10) Last Admin: 01/12/24 11:26 Dose: 4 mg Documented By: FREDERICK Nortriptyline HCl (Nortriptyline Hcl 10 Mg Capsule) 10 mg PO BEDTIME [facility] Last Admin: 01/11/24 21:20 Dose: 10 mg Documented By: RENEE Ondansetron HCl (Ondansetron Hcl 4 Mg/2 Ml Vial) 4 mg IVPUSH Q4H PRN PRN Reason: Nausea and Vomiting Pharmacy Consult (Consult Rx Vancomycin Dosing) 1 each MISCELLANE DAILY PRN PRN Reason: Consult order Polyethylene Glycol (Polyethylene Glycol 3350 17 Gm Powd.Pack) 17 gm PO DAILY [facility] Last Admin: 01/12/24 07:56 Dose: 17 gm Documented By: FREDERICK Senna (Sennosides 8.6 Mg Tablet) 17.2 mg PO DAILY [facility] Last Admin: 01/12/24 07:57 Dose: 17.2 mg Documented By: FREDERICK Sodium Chloride (0.9 % Sodium Chloride Flush 3 Ml Syringe) 3 ml IVFLUSH QSHIFT [facility] Last Admin: 01/12/24 07:59 Dose: 3 ml Documented By: FREDERICK Tamsulosin HCl (Tamsulosin Hcl 0.4 Mg Capsule) 0.8 mg PO DAILY [facility] Last Admin: 01/12/24 07:58 Dose: 0.8 mg Documented By: FREDERICK Labs 01/12/24 05:42 01/12/24 05:42 Labs: Laboratory Results - last 24 hr 01/11/24 01/11/24 01/12/24 15:27 19:55 05:42 MCV 84.4 MCH 28.8 MCHC 34.1 RDW 12.5 Plt Count 209 MPV 10.9 Absolute Nucleated RBC 0.000 Nucleated RBC % (auto) 0.0 Anion Gap 12 Estim Creat Clear Calc 80.0 Estimated GFR > 60 POC Glucose 161 H 267 H Random Glucose 306 H Calcium 8.4 Random Vancomycin 01/12/24 01/12/24 01/12/24 07:03 11:42 11:52 MCV MCH MCHC RDW Plt Count MPV Absolute Nucleated RBC Nucleated RBC % (auto) Anion Gap Estim Creat Clear Calc Estimated GFR POC Glucose 266 H 152 H Random Glucose Calcium Random Vancomycin 13.7 L Microbiology Microbiology Results: Microbiology 01/10/24 21:07 Blood Culture - Preliminary Blood - Venous No growth after 24 hours. 01/10/24 20:56 Blood Culture - Preliminary Blood - Venous No growth after 24 hours. Procedures Date of Service Date of Service: 01/12/24 Progress Note: A&P Assessment and plan (1) Diabetic foot ulcer associated with type 2 diabetes mellitus: Status: Acute (2) Eschar of heel: Status: Acute Plan No acute surgical issues. Continue local wound care, wound elevation, IV antibiotics. Consider vascular consult if it has not been done in the past. Time Spent With Patient Time: Total time managing care of this patient today ____ minutes. Quality Stroke Does the patient have a stroke diagnosis?: No VTE Prior VTE?: No VTE Risk Level:: Medical - moderate - high VTE Device Contraindication: Treatment Not Indicated VTE Drug Contraindication: N/A - Med Ordered
[2024-01-12] MEDS: Docusate Sodium 100 MG CAPSULE PO ×2 (15:33→22:09)
[2024-01-12] MEDS: Lactulose 20 GM/30 ML SOLUTION PO ×2 (15:33→22:09)
[2024-01-12 16:49] LABS: Glucose, Whole Blood 139 mg/dL (60-115)
[2024-01-12] MEDS: ondansetron HCL 4 MG/2 ML VIAL IVPUSH (16:57)
[2024-01-12] MEDS: SODIUM CHLORIDE 2166 ML IV (16:59)
[2024-01-12] MEDS: Midodrine HCl 10 MG TABLET PO (17:08)
--- NOTE | 2024-01-12 17:48 | PC.NURSE ---
16:48 This RN was notified by [employer] of low BP 66/39 automatic, rechecked manually 77/39, Pt complaining of dizziness, lightheadedness, skin feels cool to touch and Pt appears pale, grimacing in pain but vague to pain loaction, MD notified and at bedside , Pt put back in bed in trendelenburg, IVF bolus ordered, and STAT CT of abd and blood cultures to be performed, BP rechecked alf through bolus, 87/50, Pt states dizziness and lightheadedness has lessened, complaining of back pain, family a bedside and updated, Pt alert and oriented, respirations are even and unabored, BP to be rechecked upon bolus completion.
[2024-01-12 18:04] LABS: Lactic Acid 1.8 mmol/L (0.5-2.0)
[2024-01-12 18:08] LABS: MANUAL DIFF FLAG NO
[2024-01-12 18:12] LABS: Basophils Percent Auto 0.2 % (0-2); Eosinophils Absolute Auto 0.2 X10*3/uL (0.0-0.4); Eosinophils Percent Auto 1.6 % (0-4); Hematocrit 31.2 % (42.0-52.0); Hemoglobin 10.5 g/dl (14.0-18.0); Imm Gran Abs Auto 0.05 X10*3/uL (0.00-0.03); Imm Gran Pct Auto 0.4 % (0.0-0.4); Mean Corpuscular HGB Conc 33.7 g/dl (31.0-36.0); Mean Corpuscular Hemoglobin 28.8 pg (27.0-33.0); Mean Corpuscular Volume 85.7 fL (80.0-98.0); Mean Platelet Volume 10.7 fL (9.4-12.4); Monocytes Absolute Auto 0.6 X10*3/uL (0.1-1.2); Monocytes Percent Auto 5.3 % (2-11); Neutrophils Absolute Auto 9.7 x10*3/uL (2.0-8.3); Neutrophils Percent Auto 83.5 % (45-73); Platelet Count 243 X10*3/uL (160-400); Red Blood Count 3.64 X10*6/uL (4.60-5.80); Red Cell Distribution Width 12.7 % (11.0-16.0); White Blood Count 11.6 X10*3/uL (4.8-10.8)
[2024-01-12 18:19] LABS: Alanine Aminotransferase 13 U/L (0-40); Alkaline Phosphatase 153 U/L (39-117); Anion Gap 15 (12-20); Aspartate Amino Transferase 24 U/L (5-37); Bilirubin Total 1.2 mg/dL (0.0-1.0); Blood Urea Nitrogen 12 mg/dL (9-16); Calcium 8.6 mg/dL (8.4-10.2); Carbon Dioxide 24 mmol/L (22-29); Chloride 106 mmol/L (96-108); Creatinine Clr Calc Pharmacy 73.6; Estimated Glomerular Filt Rate > 60; Glucose Random 162 mg/dL (60-115); Potassium 3.9 mmol/L (3.3-5.1); Sodium 141 mmol/L (135-145)
[2024-01-12] MEDS: Acetaminophen 325 MG TABLET 975 MG PO (18:22)
[2024-01-12] MEDS: Albumin Human 25 % 100 ML 133.33 ML IV ×2 (19:31→20:19)
--- NOTE | 2024-01-12 20:15 | W.PM.CCCN ---
History of Present Illness Data of Consult Service Date: 01/12/24 Primary Care Provider: Unknown Physician HPI Reason for consult: Hypotension HPI: ?63-year-old male with underlying history of type 2 diabetes, TIAs x3, unspecified coronary artery disease without prior surgical intervention, peripheral neuropathy, chronic pain syndrome and opioid dependence, hypertension, hyperlipidemia, peripheral vascular disease, GERD, BPH, vertigo, anxiety and opiate induced constipation who has had a left heel ulcer for the past month to month and a half and has been seen as an outpatient by the wound center as well as [facility] due to a prior mild infection, presents to us via consult after being admitted to [facility] on 01/11/2024 due to fever, generalized body aches, nausea, chills, vomiting and dizziness. ?Patient's workup in the emergency room was significant for a temperature of a 102.8, CRP 08.69, a noticeable left heel necrotic wound with surrounding erythema consistent with cellulitis.? The patient had been treated with IV fluids and started on IV vancomycin and Zosyn. While on the floor, this afternoon the patient was noted to become hypotensive, IV fluids were given with very little response and subsequently albumin had been started, the patient had also been started on midodrine and were consulted due to the concern of worsening infection and possible decompensation. ?Review of the chart shows an x-ray done as well as an MRI none of which reveal osteomyelitis. Currently the patient denies any symptomatology other than pain throughout his lower extremities which is not new and has been present for the past month or so which he attributes to his neuropathy however he feels the pain is worse despite of taking his narcotics at home otherwise he no longer has chills, nausea or vomiting.? Is in good spirits and denies any other complaints; however he has not had a bowel movement in the past 5 days; but denies abdominal pain. Review of systems: As above, otherwise the patient denies any prior history of cold intolerance, migraine headaches, head trauma, no eyes, ears or nose problems, no problems swallowing or with phonation, no thyroid disease, denies any history of chest pain, palpitations, cough, sputum production, pneumonia, bronchitis, COPD or emphysema, abdominal pain, nausea, vomiting, diarrhea, abdominal surgeries, melena, hematochezia, hematemesis, hematuria, kidney stones, liver problems, immunocompromise state of any kind, no history of DVT or PE, leg edema, fractures or extremity surgeries all other review of systems were reviewed and they were all negative. Past Medical History:? As above Past Surgical History:? Denies ? Family history:? Noncontributory Social History:? Currently lives alone, uses a walker and an electric scooter.? Admits to very little smoking and social drinking in his young adult whole years; denies drugs. CODE STATUS: FULL CODE Allergies: ?Metformin (abdominal cramps) Home Medications: See Med Rec PHYSICAL EXAM: VS: ?101/56, 80, 18, 96% on room air, 98.0 F. General:? Alert oriented x3 no acute distress.? Speaking full sentences.? Speech is well articulated, thought process is coherent.? Following all commands. Skin:? Left heel has a oval necrotic ulcer with foul smell measuring approximately 7 x 3 cm with surrounding edema, erythema into the dorsal aspect of the foot in the plantar area of the foot.? Minimal drainage noted.? The remainder of the skin ?Intact, no lesions, edema, erythema, clubbing or cyanosis.? No ulcers. HEENT:? Head is normocephalic, atraumatic, pupils equal round bilaterally.? Extraocular movements appear intact.? Buccal mucosa is moist, Neck is supple without lymphadenopathy. Cardiac:? Clear S1-S2, no murmurs rubs or gallops. Pulmonary:? Clear to auscultation, no wheezes, rales or rhonchi. Abdomen:? Protuberant, positive bowel sounds in all 4 quadrants.? Soft, nontender, no rebound or guarding.? Musculoskeletal:? Moving all 4 extremities upon request a major joints, there is no crepitus or tenderness.? The strength is 5/5 bilaterally and throughout all 4 extremities.? There is no leg edema , no calf tenderness , no leg asymmetry.? Gait not assessed at this point. Neurologic:? As above, moving all 4 extremities, no apparent deficits noted.. Vascular:? 2+ pulses upper and lower extremities distally, with the exception of the left foot which shows a week +1 pulse at the dorsal pedal is aspect. SIGNIFICANT LABORATORY DATA:? White blood cells 11.6, hemoglobin 10.5, hematocrit 31.2, platelets 243, MCV 85.7, sodium 141, potassium 3.9, chloride 106, carbon dioxide 24, BUN 12, creatinine 0.87, random glucose 227, lactic acid 1.8, albumin 3.0.? Random vancomycin level 13.7. REVIEW OF IMAGES: as above EKG REVIEW: To my view this shows sinus rhythm 64 beats per minute.? There is no ST elevations, no ST depressions.? Left AV block evidence.? Age-indeterminate ST and T-wave abnormalities in the lateral leads which appeared to be new in comparison to EKG from 03/04/2021. ASSESSMENT : 1. Left heel necrotic diabetic ulcer without evidence of osteomyelitis 2. Left foot surrounding also cellulitis 3. Multifactorial hypotension (mostly due to IV morphine administration and antihypertensives) 4. Hypoalbuminemia 5. Opiate dependence 6. Chronic pain syndrome 7. Opiate induced constipation 8. Asymptomatic history of coronary artery disease PLAN OF CARE: At this point the patient does not need further ICU intervention or care, the case was discussed in detail with Dr. Crook. ?It is clear that the patient's blood pressure dropped significantly after IV morphine administration, however the patient is also on lung acting beta-jordan while on midodrine which are basically opposing each other.? Metoprolol succinate will be placed on hold, will also hold tamsulosin; will discontinue IV morphine.? Will order further albumin us his levels are low enough to allow at least a 4 bag administration. ?Continue with all of other cardiac medications and reinstitute beta-jordan once his blood pressure improves, perhaps in the form of metoprolol titrate divided among 3 or 4 doses. ? Patient should continue with wound care with possible debridement indications as per surgical recommendations.? (if any); given ill-defined in longitudinal partial tearing of the peroneal brevis tendon as well as Achilles tendinosis, early physical therapy for range of motion and strengthening of such tendons would be important. Will monitor closely, at this point the patient is stable, there is no evidence of sepsis or septic shock and will be happy to follow or see the patient again if there is any further problems or decompensation. We thank you for allowing us to participate in the care of this patient. Critical care time used for critical evaluation of this patient, diagnosis, treatment and coordination of care, review her records and documentation TOTAL CRITICAL CARE TIME 60??MIN . discussion and coordination with consultants, completely separate from any procedures performed. Patient's care was discussed in detail with Dr. Lorenzana is aware of all the above as well as the plan of care for this patient. [facility] Past Medical History Medical History Heart attack Hypercholesterolemia HTN (hypertension) Diabetes Social History Social History Household Members: None Housing: Apartment Patient Tobacco Use Status: Never used Tobacco service: No Meds Allergies Allergy/AdvReac Type Severity Reaction Status Date / Time metformin [Metformin] Allergy Mild ? Verified 01/10/24 20:32 INTOLERANCE Active Medications: Current Medications Acetaminophen (Acetaminophen 325 Mg Tablet) 975 mg PO Q6H PRN PRN Reason: Pain, Mild (Pain Scale 1-3), fever or headache Last Admin: 01/12/24 18:22 Dose: 975 mg Aspirin (Aspirin Enteric Coated 81 Mg Tablet.) 81 mg PO DAILY COUNT INCLUDES THE [facility] Last Admin: 01/12/24 07:58 Dose: 81 mg Atorvastatin Calcium (Atorvastatin Calcium 80 Mg Tablet) 80 mg PO DAILY COUNT INCLUDES THE [facility] Last Admin: 01/12/24 07:58 Dose: 80 mg Clopidogrel Bisulfate (Clopidogrel Bisulfate 75 Mg Tablet) 75 mg PO DAILY COUNT INCLUDES THE [facility] Last Admin: 01/12/24 07:57 Dose: 75 mg Docusate Sodium (Docusate Sodium 100 Mg Capsule) 100 mg PO BID COUNT INCLUDES THE [facility] Last Admin: 01/12/24 15:33 Dose: 100 mg Empagliflozin (Empagliflozin 25 Mg Tablet) 25 mg PO DAILY COUNT INCLUDES THE [facility] Last Admin: 01/12/24 07:57 Dose: 25 mg Famotidine (Famotidine 20 Mg Tablet) 10 mg PO BID COUNT INCLUDES THE [facility] Last Admin: 01/12/24 07:59 Dose: 10 mg Finasteride (Finasteride 5 Mg Tablet) 5 mg PO DAILY COUNT INCLUDES THE [facility] Last Admin: 01/12/24 07:58 Dose: 5 mg Glucose (Glucose Gel 15 Gm Gel..Gram.) 15 gm PO Q15M PRN; Protocol PRN Reason: per Hypoglycemia Standing Ord. Heparin Sodium (Porcine) (Heparin Sodium,Porcine 5,000 Unit/Ml Vial) 5,000 unit SUBCUT Q8H COUNT INCLUDES THE [facility] Last Admin: 01/12/24 17:08 Dose: Not Given Piperacillin Sod/Tazobactam (Sod 3.375 gm/ Sodium Chloride) 50 mls @ 100 mls/hr IV Q6H COUNT INCLUDES THE [facility] Last Infusion: 01/12/24 19:23 Dose: Infused Vancomycin HCl 1,000 mg/ (Sodium Chloride) 270 mls @ 270 mls/hr IV Q12H TANYA Last Infusion: 01/12/24 15:06 Dose: Infused Dextrose (D10) 250 mls @ 750 mls/hr IV Q15M PRN; Protocol PRN Reason: per Hypoglycemia Standing Ord. Albumin Human (Kedbumin 25 %) 100 mls @ 133.333 mls/hr IV Q1H COUNT INCLUDES THE [facility] Stop: 01/12/24 20:29 Last Admin: 01/12/24 19:31 Dose: 133.33 mls/hr Insulin Glargine (Insulin Glargine,Hum.Rec.Anlog 100 Unit/Ml 10 Ml Vial) 16 unit SUBCUT DAILY COUNT INCLUDES THE [facility] Last Admin: 01/12/24 07:57 Dose: 16 unit Insulin Human Lispro (Insulin Lispro 100 Unit/Ml 3 Ml Vial) 0 unit SUBCUT QIDACHS COUNT INCLUDES THE [facility]; Protocol Last Admin: 01/12/24 17:01 Dose: Not Given Insulin Pump (Subcutaneous Insulin Pump) 1 each SUBCUT QIDACHS COUNT INCLUDES THE [facility]; Protocol Last Admin: 01/12/24 15:29 Dose: Not Given Isosorbide Mononitrate (Isosorbide Mononitrate 30 Mg Tab.Er.24h) 30 mg PO DAILY COUNT INCLUDES THE [facility]; Protocol Last Admin: 01/12/24 07:58 Dose: 30 mg Lactulose (Lactulose 20 Gm/30 Ml Solution) 20 gm PO BID COUNT INCLUDES THE [facility] Last Admin: 01/12/24 15:33 Dose: 20 gm Losartan Potassium (Losartan Potassium 25 Mg Tablet) 12.5 mg PO DAILY COUNT INCLUDES THE [facility]; Protocol Last Admin: 01/12/24 07:58 Dose: 12.5 mg Meclizine HCl (Meclizine Hcl 12.5 Mg Tablet) 12.5 mg PO TID PRN PRN Reason: dizziness Metoprolol Succinate (Metoprolol Succinate Er 50 Mg Tab.Er.24h) 50 mg PO DAILY COUNT INCLUDES THE [facility]; Protocol Last Admin: 01/12/24 07:57 Dose: 50 mg Midodrine (Midodrine Hcl 5 Mg Tablet) 5 mg PO TIDWM COUNT INCLUDES THE [facility] Last Admin: 01/12/24 17:08 Dose: 5 mg Morphine Sulfate (Morphine Sulfate Er 15 Mg Tablet.Er) 15 mg PO Q12H COUNT INCLUDES THE [facility] Last Admin: 01/12/24 18:18 Dose: Not Given Morphine Sulfate (Morphine Sulfate 4 Mg/Ml Cartridge) 4 mg IVPUSH Q4H PRN; Protocol PRN Reason: Pain, Severe (Pain Scale 7-10) Last Admin: 01/12/24 15:33 Dose: 4 mg Nortriptyline HCl (Nortriptyline Hcl 10 Mg Capsule) 10 mg PO BEDTIME COUNT INCLUDES THE [facility] Last Admin: 01/11/24 21:20 Dose: 10 mg Ondansetron HCl (Ondansetron Hcl 4 Mg/2 Ml Vial) 4 mg IVPUSH Q4H PRN PRN Reason: Nausea and Vomiting Last Admin: 01/12/24 16:57 Dose: 4 mg Pharmacy Consult (Consult Rx Vancomycin Dosing) 1 each MISCELLANE DAILY PRN PRN Reason: Consult order Polyethylene Glycol (Polyethylene Glycol 3350 17 Gm Powd.Pack) 17 gm PO DAILY COUNT INCLUDES THE [facility] Last Admin: 01/12/24 07:56 Dose: 17 gm Senna (Sennosides 8.6 Mg Tablet) 17.2 mg PO DAILY COUNT INCLUDES THE [facility] Last Admin: 01/12/24 07:57 Dose: 17.2 mg Sodium Chloride (0.9 % Sodium Chloride Flush 3 Ml Syringe) 3 ml IVFLUSH QSHIFT COUNT INCLUDES THE [facility] Last Admin: 01/12/24 15:42 Dose: 3 ml Tamsulosin HCl (Tamsulosin Hcl 0.4 Mg Capsule) 0.8 mg PO DAILY COUNT INCLUDES THE [facility] Last Admin: 01/12/24 07:58 Dose: 0.8 mg Home Medications ?Medication ?Instructions ?Recorded ?Confirmed ?Last Taken ?Type aspirin 81 mg tablet,delayed 81 mg PO DAILY 01/11/24 01/11/24 01/10/24 History release atorvastatin 80 mg tablet 80 mg PO DAILY 01/11/24 01/11/24 01/10/24 History clopidogrel 75 mg tablet 75 mg PO DAILY 01/11/24 01/11/24 01/10/24 History docusate sodium 100 mg tablet 100 mg PO BID PRN constipation 01/11/24 01/11/24 01/10/24 History (Stool Softener) empagliflozin 25 mg tablet 25 mg PO DAILY 01/11/24 01/11/24 01/10/24 History (Jardiance) famotidine 10 mg tablet (Heartburn 10 mg PO BID 01/11/24 01/11/24 01/10/24 History Relief (famotidine)) finasteride 5 mg tablet 5 mg PO DAILY 01/11/24 01/11/24 01/10/24 History insulin glargine 100 unit/mL (3 23 unit subcut DAILY 01/11/24 01/11/24 01/10/24 History mL) subcutaneous pen (Lantus Solostar U-100 Insulin) insulin lispro 100 unit/mL 1 sliding scale dose subcut TID 01/11/24 01/11/24 01/10/24 History subcutaneous pen (Humalog KwikPen (U-100) Insulin) isosorbide mononitrate 30 mg 30 mg PO DAILY 01/11/24 01/11/24 01/10/24 History tablet,extended release 24 hr losartan 25 mg tablet 12.5 mg PO DAILY 01/11/24 01/11/24 01/10/24 History meclizine 12.5 mg tablet 12.5 mg PO TID PRN dizziness 01/11/24 01/11/24 01/10/24 History metoprolol succinate 50 mg 50 mg PO DAILY 01/11/24 01/11/24 01/10/24 History tablet,extended release 24 hr midodrine 5 mg tablet 5 mg PO TID 01/11/24 01/11/24 01/10/24 History morphine 15 mg tablet,extended 15 mg PO Q12H 01/11/24 01/11/24 01/10/24 History release nortriptyline 10 mg capsule 10 mg PO BEDTIME 01/11/24 01/11/24 01/10/24 History ondansetron 4 mg disintegrating 4 mg PO Q8H PRN nausea/vomiting 01/11/24 01/11/24 01/10/24 History tablet oxycodone 10 mg tablet 10 mg PO Q6H PRN pain 01/11/24 01/11/24 01/10/24 History polyethylene glycol 3350 17 17 g PO DAILY 01/11/24 01/11/24 Unknown History gram/dose oral powder (Gavilax) sennosides 8.6 mg tablet (senna) 17.2 mg PO DAILY 01/11/24 01/11/24 01/10/24 History tamsulosin 0.4 mg capsule 0.8 mg PO DAILY 01/11/24 01/11/24 01/10/24 History Physical Exam Vital Signs: Vital Signs: Last Vital Signs Temp 98.1 F 01/12/24 16:00 Pulse 83 01/12/24 19:22 Resp 20 01/12/24 19:22 BP 97/52 L 01/12/24 19:22 Pulse Ox 98 01/12/24 17:36 O2 Del Method Room Air 01/12/24 17:36 BMI result Body Mass Index 26.5 Results Labs 01/12/24 17:31 01/12/24 17:31 Labs: Short CBC 01/12/24 01/12/24 Range/Units 05:42 17:31 WBC 8.6 11.6 H (4.8-10.8) X10*3/uL Hgb 11.3 L 10.5 L (14.0-18.0) g/dl Hct 33.1 L 31.2 L (42.0-52.0) % Plt Count 209 243 (160-400) X10*3/uL BMP 01/12/24 01/12/24 05:42 17:31 Sodium 137 141 Potassium 3.6 3.9 Chloride 104 106 Carbon Dioxide 25 24 BUN 11 12 Creatinine 0.80 0.87 Calcium 8.4 8.6 Liver Function 01/12/24 Range/Units 17:31 Total Bilirubin 1.2 H (0.0-1.0) mg/dL AST 24 (5-37) U/L ALT 13 (0-40) U/L Alkaline Phosphatase 153 H (39-117) U/L Albumin 3.0 L (3.5-5.0) g/dL Microbiology Microbiology Results: Microbiology 01/10/24 21:07 Blood - Venous Blood Culture - Preliminary No growth after 24 hours. 01/10/24 20:56 Blood - Venous Blood Culture - Preliminary No growth after 24 hours.
[2024-01-12 20:34] LABS: Glucose, Whole Blood 227 mg/dL (60-115)
[2024-01-12] MEDS: Albumin Human 25 % 100 ML IV ×2 (22:06→23:09)
[2024-01-12] MEDS: Nortriptyline HCl 10 MG CAPSULE PO (22:08)
[2024-01-12] MEDS: bisacodyL 5 MG TABLET.DR 10 MG PO (22:09)
[2024-01-13] VITALS: BP 102/56; PULSE 76; RESP 18; TEMP 36.3; O2SAT 100
[2024-01-13] MEDS: Heparin Sodium,Porcine 5,000 UNIT/ML VIAL 5000 UNIT SUBCUT ×3 (00:31→17:28)
[2024-01-13] MEDS: vancomycin HCL 1,000 MG in 0.9 % Sodium Chloride 250 ML 270 MG IV (00:34)
[2024-01-13 04:00] VITALS: BP 102/57; PULSE 77; RESP 16; TEMP 36.1; O2SAT 96
[2024-01-13] MEDS: Piperacillin Sodium/Tazobactam 3.375 GM in 0.9 % Sodium Chloride 50 ML IV ×3 (06:21→17:28)
[2024-01-13 06:55] LABS: Creatinine Clr Calc Pharmacy 74.4; Estimated Glomerular Filt Rate > 60
[2024-01-13 07:00] VITALS: BP 111/56; PULSE 70; RESP 14; TEMP 36.1; O2SAT 96
[2024-01-13 07:29] LABS: Glucose, Whole Blood 123 mg/dL (60-115)
[2024-01-13] MEDS: Finasteride 5 MG TABLET PO (08:46)
[2024-01-13] MEDS: Aspirin Enteric Coated 81 MG TABLET.DR PO (08:46)
[2024-01-13] MEDS: Empagliflozin 25 MG TABLET PO (08:46)
[2024-01-13] MEDS: Sennosides 8.6 MG TABLET 17.2 MG PO (08:46)
[2024-01-13] MEDS: Midodrine HCl 5 MG TABLET PO ×3 (08:46→17:27)
[2024-01-13] MEDS: polyethylene glycoL 3350 17 GM POWD.PACK PO (08:46)
[2024-01-13] MEDS: Docusate Sodium 100 MG CAPSULE PO ×2 (08:46→20:27)
[2024-01-13] MEDS: Famotidine 20 MG TABLET 10 MG PO ×2 (08:46→20:27)
[2024-01-13] MEDS: Atorvastatin Calcium 80 MG TABLET PO (08:46)
[2024-01-13] MEDS: Clopidogrel Bisulfate 75 MG TABLET PO (08:46)
[2024-01-13] MEDS: Insulin Glargine,Hum.rec.anlog 100 UNIT/ML 10 ML VIAL 16 UNIT SUBCUT (08:47)
[2024-01-13] MEDS: 0.9 % Sodium Chloride Flush 3 ML SYRINGE IVFLUSH (08:47)
[2024-01-13 11:25] LABS: Glucose, Whole Blood 100 mg/dL (60-115)
[2024-01-13 12:00] VITALS: BP 94/54; PULSE 77; RESP 14; TEMP 36; O2SAT 97
[2024-01-13 12:20] LABS: Vancomycin Trough 20.1 mcg/mL (10.0-20.0)
--- NOTE | 2024-01-13 12:28 | HE.PHANOTE ---
RE: VANCO DOSING Random came back as 20.1 which is higher than predicted 17.4. Dose is decreased to 1250 mg q24h with predicted irx=149 and trough=11.2. Next random is scheduled for 01/14/24 @1200.
--- NOTE | 2024-01-13 12:36 | P.PNIM_ITS ---
Subjective Subjective Date of Service: 01/13/24 Interval History: seen and evaluated this morning BP improved after dipping down too low yesterday CT showed urine retention and constipation moved bowels Emerson placed sent new cultures Review of Systems Review of Systems: Yes all other systems are reviewed and are negative Physical Exam 2 Vital Signs: Vital Signs: Last Vital Signs Temp 96.8 F 01/13/24 12:00 Pulse 77 01/13/24 12:00 Resp 14 01/13/24 12:00 BP 94/54 L 01/13/24 12:00 Pulse Ox 97 01/13/24 12:00 O2 Del Method Room Air 01/13/24 12:00 BMI result Body Mass Index 26.5 Const: Other: Constitutional : Awake, interactive, not in distress Neck : Normal inspection, Supple Cardiovascular : RRR, no JVP, no lower extremity edema Respiratory : good bilateral air entry, no crackles, wheezes or rhonchi Gastrointestinal: soft, lax, Normal bowel sounds, Non tender Skin : Warm, Dry, LLE heel wound covered with dressing with decreased pulses in DP and PT Neurological : Alert & oriented x3, No focal deficit Objective Data Active Medications Acetaminophen (Acetaminophen 325 Mg Tablet) 975 mg PO Q6H PRN PRN Reason: Pain, Mild (Pain Scale 1-3), fever or headache Last Admin: 01/12/24 18:22 Dose: 975 mg Documented By: FREDERICK Aspirin (Aspirin Enteric Coated 81 Mg Tablet.) 81 mg PO DAILY [facility] Last Admin: 01/13/24 08:46 Dose: 81 mg Documented By: FREDERICK Atorvastatin Calcium (Atorvastatin Calcium 80 Mg Tablet) 80 mg PO DAILY [facility] Last Admin: 01/13/24 08:46 Dose: 80 mg Documented By: FREDERICK Bisacodyl (Bisacodyl 5 Mg Tablet.) 10 mg PO BEDTIME [facility] Last Admin: 01/12/24 22:09 Dose: 10 mg Documented By: RENEE Clopidogrel Bisulfate (Clopidogrel Bisulfate 75 Mg Tablet) 75 mg PO DAILY [facility] Last Admin: 01/13/24 08:46 Dose: 75 mg Documented By: FREDERICK Docusate Sodium (Docusate Sodium 100 Mg Capsule) 100 mg PO BID [facility] Last Admin: 01/13/24 08:46 Dose: 100 mg Documented By: FREDERICK Empagliflozin (Empagliflozin 25 Mg Tablet) 25 mg PO DAILY [facility] Last Admin: 01/13/24 08:46 Dose: 25 mg Documented By: FREDERICK Famotidine (Famotidine 20 Mg Tablet) 10 mg PO BID [facility] Last Admin: 01/13/24 08:46 Dose: 10 mg Documented By: FREDERICK Finasteride (Finasteride 5 Mg Tablet) 5 mg PO DAILY [facility] Last Admin: 01/13/24 08:46 Dose: 5 mg Documented By: FREDERICK Glucose (Glucose Gel 15 Gm Gel..Gram.) 15 gm PO Q15M PRN; Protocol PRN Reason: per Hypoglycemia Standing Ord. Heparin Sodium (Porcine) (Heparin Sodium,Porcine 5,000 Unit/Ml Vial) 5,000 unit SUBCUT Q8H [facility] Last Admin: 01/13/24 08:46 Dose: 5,000 unit Documented By: FREDERICK Piperacillin Sod/Tazobactam (Sod 3.375 gm/ Sodium Chloride) 50 mls @ 100 mls/hr IV Q6H [facility] Last Infusion: 01/13/24 12:28 Dose: Infused Documented By: FREDERICK Dextrose (D10) 250 mls @ 750 mls/hr IV Q15M PRN; Protocol PRN Reason: per Hypoglycemia Standing Ord. Vancomycin HCl 1,250 mg/ (Sodium Chloride) 250 mls @ 166.667 mls/hr IV Q24H [facility] Sodium Chloride (Ns) 1,000 mls @ 999 mls/hr IV .Q1H1M [facility] Stop: 01/13/24 13:45 Sodium Chloride (Ns) 1,000 mls @ 80 mls/hr IVCONT .[id number] [facility] Insulin Glargine (Insulin Glargine,Hum.Rec.Anlog 100 Unit/Ml 10 Ml Vial) 16 unit SUBCUT DAILY [facility] Last Admin: 01/13/24 08:47 Dose: 16 unit Documented By: FREDERICK Insulin Human Lispro (Insulin Lispro 100 Unit/Ml 3 Ml Vial) 0 unit SUBCUT QIDACHS [facility]; Protocol Last Admin: 01/13/24 11:26 Dose: Not Given Documented By: FREDERICK Non-Admin Reason: No Insulin Coverage Isosorbide Mononitrate (Isosorbide Mononitrate 30 Mg Tab.Er.24h) 30 mg PO DAILY [facility]; Protocol Last Admin: 01/12/24 07:58 Dose: 30 mg Documented By: FREDERICK Lactulose (Lactulose 20 Gm/30 Ml Solution) 20 gm PO BID [facility] Last Admin: 01/13/24 08:52 Dose: Not Given Documented By: FREDERICK Non-Admin Reason: Patient Refused Losartan Potassium (Losartan Potassium 25 Mg Tablet) 12.5 mg PO DAILY [facility]; Protocol Last Admin: 01/12/24 07:58 Dose: 12.5 mg Documented By: FREDERICK Meclizine HCl (Meclizine Hcl 12.5 Mg Tablet) 12.5 mg PO TID PRN PRN Reason: dizziness Metoprolol Succinate (Metoprolol Succinate Er 50 Mg Tab.Er.24h) 50 mg PO DAILY [facility]; Protocol Last Admin: 01/12/24 07:57 Dose: 50 mg Documented By: FREDERICK Midodrine (Midodrine Hcl 5 Mg Tablet) 5 mg PO TIDWM [facility] Last Admin: 01/13/24 11:50 Dose: 5 mg Documented By: FREDERICK Morphine Sulfate (Morphine Sulfate Er 15 Mg Tablet.Er) 15 mg PO Q12H [facility] Last Admin: 01/13/24 06:10 Dose: Not Given Documented By: RENEE Non-Admin Reason: b/p soft Nortriptyline HCl (Nortriptyline Hcl 10 Mg Capsule) 10 mg PO BEDTIME [facility] Last Admin: 01/12/24 22:08 Dose: 10 mg Documented By: RENEE Ondansetron HCl (Ondansetron Hcl 4 Mg/2 Ml Vial) 4 mg IVPUSH Q4H PRN PRN Reason: Nausea and Vomiting Last Admin: 01/12/24 16:57 Dose: 4 mg Documented By: FREDERICK Oxycodone HCl (Oxycodone Hcl Immed Release 5 Mg Tablet) 5 mg PO Q4H PRN PRN Reason: Pain, Moderate(Pain Scale 4-6) Pharmacy Consult (Consult Rx Vancomycin Dosing) 1 each MISCELLANE DAILY PRN PRN Reason: Consult order Polyethylene Glycol (Polyethylene Glycol 3350 17 Gm Powd.Pack) 17 gm PO DAILY [facility] Last Admin: 01/13/24 08:46 Dose: 17 gm Documented By: FREDERICK Senna (Sennosides 8.6 Mg Tablet) 17.2 mg PO DAILY [facility] Last Admin: 01/13/24 08:46 Dose: 17.2 mg Documented By: FREDERICK Sodium Chloride (0.9 % Sodium Chloride Flush 3 Ml Syringe) 3 ml IVFLUSH QSHIFT [facility] Last Admin: 01/13/24 08:47 Dose: 3 ml Documented By: FREDERICK Tamsulosin HCl (Tamsulosin Hcl 0.4 Mg Capsule) 0.8 mg PO DAILY [facility] Last Admin: 01/12/24 07:58 Dose: 0.8 mg Documented By: FREDERICK Labs 01/12/24 17:31 01/13/24 06:02 Labs: Laboratory Results - last 24 hr 01/12/24 01/12/24 01/12/24 16:36 17:31 20:28 MCV 85.7 MCH 28.8 MCHC 33.7 RDW 12.7 Plt Count 243 MPV 10.7 Immature Gran % (Auto) 0.4 Neut % (Auto) 83.5 H Lymph % (Auto) 9.0 L [place] % (Auto) 5.3 Eos % (Auto) 1.6 Baso % (Auto) 0.2 Lymph # (Auto) 1.0 L [place] # (Auto) 0.6 Eos # (Auto) 0.2 Baso # (Auto) 0.0 Abs Immat Gran (auto) 0.05 H Absolute Neuts (auto) 9.7 H Absolute Nucleated RBC 0.000 Nucleated RBC % (auto) 0.0 Hold Purple Top Anion Gap 15 Estim Creat Clear Calc 73.6 Estimated GFR > 60 POC Glucose 139 H 227 H Random Glucose 162 H Lactic Acid 1.8 Calcium 8.6 Total Bilirubin 1.2 H AST 24 ALT 13 Alkaline Phosphatase 153 H Total Protein 6.0 L Albumin 3.0 L Hold Yellow Top See Note Vancomycin Trough 01/13/24 01/13/24 01/13/24 06:02 07:03 11:18 MCV MCH MCHC RDW Plt Count MPV Immature Gran % (Auto) Neut % (Auto) Lymph % (Auto) [place] % (Auto) Eos % (Auto) Baso % (Auto) Lymph # (Auto) [place] # (Auto) Eos # (Auto) Baso # (Auto) Abs Immat Gran (auto) Absolute Neuts (auto) Absolute Nucleated RBC Nucleated RBC % (auto) Hold Purple Top SEE NOTE Anion Gap Estim Creat Clear Calc 74.4 Estimated GFR > 60 POC Glucose 123 H 100 Random Glucose Lactic Acid Calcium Total Bilirubin AST ALT Alkaline Phosphatase Total Protein Albumin Hold Yellow Top Vancomycin Trough 01/13/24 11:49 MCV MCH MCHC RDW Plt Count MPV Immature Gran % (Auto) Neut % (Auto) Lymph % (Auto) [place] % (Auto) Eos % (Auto) Baso % (Auto) Lymph # (Auto) [place] # (Auto) Eos # (Auto) Baso # (Auto) Abs Immat Gran (auto) Absolute Neuts (auto) Absolute Nucleated RBC Nucleated RBC % (auto) Hold Purple Top Anion Gap Estim Creat Clear Calc Estimated GFR POC Glucose Random Glucose Lactic Acid Calcium Total Bilirubin AST ALT Alkaline Phosphatase Total Protein Albumin Hold Yellow Top Vancomycin Trough 20.1 H Microbiology Microbiology Results: Microbiology 01/10/24 21:07 Blood Culture - Preliminary Blood - Venous No growth after 48 hours. 01/10/24 20:56 Blood Culture - Preliminary Blood - Venous No growth after 48 hours. Assessment and Plan (1) Diabetic foot ulcer associated with type 2 diabetes mellitus: Status: Acute (2) Eschar of heel: Status: Acute (3) Retention, urine: Status: Acute (4) Constipation in male: Status: Acute (5) Hypotension: Status: Acute Plan Escobar Tse is a 63 y/o man admitted with: Hypotension Seems to be secondary to severe constipation and urine retention responded after IV fluid bolus, laxatives Critical care evaluated the patient start maintenance fluids after 1L bolus Urine retention Emerson placed Continue Tamsulosin and Finasteride Constipation Laxatives Acute Left heel infected necrotic diabetic ulcer MRI not convincing for osteomyelitis. negative blood cultures Continue IV Vancomycin and Zosyn Surgery following, recurrent debridements needed Vascular surgery to follow ID rec 6 weeks of Vanco\Ertapenem follow Vanco trough Type 2 diabetes mellitus. Patient has his own insulin pump. Check BG before meals at bedtime (no need for fingersticks). Diabetic diet. Essential hypertension. Continue metoprolol. Heart disease. Continue aspirin, statin, Plavix Code status: Full DVT prophylaxis: heparin subcut Patient will need hospitalization overnight for left heel infected necrotic ulcer treatment with IV antibiotics and evaluation by Specialists Quality Stroke Does the patient have a stroke diagnosis?: No VTE Prior VTE?: No VTE Risk Level:: Medical - moderate - high VTE Device Contraindication: Treatment Not Indicated VTE Drug Contraindication: N/A - Med Ordered
[2024-01-13] MEDS: oxyCODONE HCl Immed Release 5 MG TABLET PO (12:47)
[2024-01-13] MEDS: 0.9 % Sodium Chloride 1,000 ML 999 ML IV (12:50)
--- NOTE | 2024-01-13 13:23 | PM.PNGS ---
Subjective Subjective Date of Service: 01/13/24 Interval history: Patient has no new issues or complaints regarding left heel wound. Undergoing local wound care/dressing changes per nursing staff Physical Exam Vital Signs: Vital Signs: Last Vital Signs Temp 96.8 F 01/13/24 12:00 Pulse 77 01/13/24 12:00 Resp 14 01/13/24 12:00 BP 94/54 L 01/13/24 12:00 Pulse Ox 97 01/13/24 12:00 O2 Del Method Room Air 01/13/24 12:00 BMI result Body Mass Index 26.5 Extrem: Other: Wound status quo. Dressing clean dry and intact Objective Data Active Medications Acetaminophen (Acetaminophen 325 Mg Tablet) 975 mg PO Q6H PRN PRN Reason: Pain, Mild (Pain Scale 1-3), fever or headache Last Admin: 01/12/24 18:22 Dose: 975 mg Documented By: FREDERICK Aspirin (Aspirin Enteric Coated 81 Mg Tablet.) 81 mg PO DAILY [facility] Last Admin: 01/13/24 08:46 Dose: 81 mg Documented By: FREDERICK Atorvastatin Calcium (Atorvastatin Calcium 80 Mg Tablet) 80 mg PO DAILY [facility] Last Admin: 01/13/24 08:46 Dose: 80 mg Documented By: FREDERICK Bisacodyl (Bisacodyl 5 Mg Tablet.) 10 mg PO BEDTIME [facility] Last Admin: 01/12/24 22:09 Dose: 10 mg Documented By: RENEE Clopidogrel Bisulfate (Clopidogrel Bisulfate 75 Mg Tablet) 75 mg PO DAILY [facility] Last Admin: 01/13/24 08:46 Dose: 75 mg Documented By: FREDERICK Docusate Sodium (Docusate Sodium 100 Mg Capsule) 100 mg PO BID [facility] Last Admin: 01/13/24 08:46 Dose: 100 mg Documented By: FREDERICK Empagliflozin (Empagliflozin 25 Mg Tablet) 25 mg PO DAILY [facility] Last Admin: 01/13/24 08:46 Dose: 25 mg Documented By: FREDERICK Famotidine (Famotidine 20 Mg Tablet) 10 mg PO BID [facility] Last Admin: 01/13/24 08:46 Dose: 10 mg Documented By: FREDERICK Finasteride (Finasteride 5 Mg Tablet) 5 mg PO DAILY [facility] Last Admin: 01/13/24 08:46 Dose: 5 mg Documented By: FREDERICK Glucose (Glucose Gel 15 Gm Gel..Gram.) 15 gm PO Q15M PRN; Protocol PRN Reason: per Hypoglycemia Standing Ord. Heparin Sodium (Porcine) (Heparin Sodium,Porcine 5,000 Unit/Ml Vial) 5,000 unit SUBCUT Q8H [facility] Last Admin: 01/13/24 08:46 Dose: 5,000 unit Documented By: FREDERICK Piperacillin Sod/Tazobactam (Sod 3.375 gm/ Sodium Chloride) 50 mls @ 100 mls/hr IV Q6H [facility] Last Infusion: 01/13/24 12:28 Dose: Infused Documented By: FREDERICK Dextrose (D10) 250 mls @ 750 mls/hr IV Q15M PRN; Protocol PRN Reason: per Hypoglycemia Standing Ord. Vancomycin HCl 1,250 mg/ (Sodium Chloride) 250 mls @ 166.667 mls/hr IV Q24H [facility] Sodium Chloride (Ns) 1,000 mls @ 999 mls/hr IV .Q1H1M [facility] Stop: 01/13/24 13:45 Last Admin: 01/13/24 12:50 Dose: 999 mls/hr Documented By: FREDERICK Sodium Chloride (Ns) 1,000 mls @ 80 mls/hr IVCONT .[id number] [facility] Insulin Glargine (Insulin Glargine,Hum.Rec.Anlog 100 Unit/Ml 10 Ml Vial) 16 unit SUBCUT DAILY [facility] Last Admin: 01/13/24 08:47 Dose: 16 unit Documented By: FREDERICK Insulin Human Lispro (Insulin Lispro 100 Unit/Ml 3 Ml Vial) 0 unit SUBCUT QIDACHS [facility]; Protocol Last Admin: 01/13/24 11:26 Dose: Not Given Documented By: FREDERICK Non-Admin Reason: No Insulin Coverage Isosorbide Mononitrate (Isosorbide Mononitrate 30 Mg Tab.Er.24h) 30 mg PO DAILY [facility]; Protocol Last Admin: 01/12/24 07:58 Dose: 30 mg Documented By: FREDERICK Lactulose (Lactulose 20 Gm/30 Ml Solution) 20 gm PO BID [facility] Last Admin: 01/13/24 08:52 Dose: Not Given Documented By: FREDERICK Non-Admin Reason: Patient Refused Losartan Potassium (Losartan Potassium 25 Mg Tablet) 12.5 mg PO DAILY [facility]; Protocol Last Admin: 01/12/24 07:58 Dose: 12.5 mg Documented By: FREDERICK Meclizine HCl (Meclizine Hcl 12.5 Mg Tablet) 12.5 mg PO TID PRN PRN Reason: dizziness Metoprolol Succinate (Metoprolol Succinate Er 50 Mg Tab.Er.24h) 50 mg PO DAILY [facility]; Protocol Last Admin: 01/12/24 07:57 Dose: 50 mg Documented By: FREDERICK Midodrine (Midodrine Hcl 5 Mg Tablet) 5 mg PO TIDWM [facility] Last Admin: 01/13/24 11:50 Dose: 5 mg Documented By: FREDERICK Morphine Sulfate (Morphine Sulfate Er 15 Mg Tablet.Er) 15 mg PO Q12H [facility] Last Admin: 01/13/24 06:10 Dose: Not Given Documented By: RENEE Non-Admin Reason: b/p soft Nortriptyline HCl (Nortriptyline Hcl 10 Mg Capsule) 10 mg PO BEDTIME [facility] Last Admin: 01/12/24 22:08 Dose: 10 mg Documented By: RENEE Ondansetron HCl (Ondansetron Hcl 4 Mg/2 Ml Vial) 4 mg IVPUSH Q4H PRN PRN Reason: Nausea and Vomiting Last Admin: 01/12/24 16:57 Dose: 4 mg Documented By: FREDERICK Oxycodone HCl (Oxycodone Hcl Immed Release 5 Mg Tablet) 5 mg PO Q4H PRN PRN Reason: Pain, Moderate(Pain Scale 4-6) Last Admin: 01/13/24 12:47 Dose: 5 mg Documented By: FREDERICK Pharmacy Consult (Consult Rx Vancomycin Dosing) 1 each MISCELLANE DAILY PRN PRN Reason: Consult order Polyethylene Glycol (Polyethylene Glycol 3350 17 Gm Powd.Pack) 17 gm PO DAILY [facility] Last Admin: 01/13/24 08:46 Dose: 17 gm Documented By: FREDERICK Senna (Sennosides 8.6 Mg Tablet) 17.2 mg PO DAILY [facility] Last Admin: 01/13/24 08:46 Dose: 17.2 mg Documented By: FREDERICK Sodium Chloride (0.9 % Sodium Chloride Flush 3 Ml Syringe) 3 ml IVFLUSH QSHIFT [facility] Last Admin: 01/13/24 08:47 Dose: 3 ml Documented By: FREDERICK Tamsulosin HCl (Tamsulosin Hcl 0.4 Mg Capsule) 0.8 mg PO DAILY [facility] Last Admin: 01/12/24 07:58 Dose: 0.8 mg Documented By: FREDERICK Labs 01/12/24 17:31 01/13/24 06:02 Labs: Laboratory Results - last 24 hr 01/12/24 01/12/24 01/12/24 16:36 17:31 20:28 MCV 85.7 MCH 28.8 MCHC 33.7 RDW 12.7 Plt Count 243 MPV 10.7 Immature Gran % (Auto) 0.4 Neut % (Auto) 83.5 H Lymph % (Auto) 9.0 L [place] % (Auto) 5.3 Eos % (Auto) 1.6 Baso % (Auto) 0.2 Lymph # (Auto) 1.0 L [place] # (Auto) 0.6 Eos # (Auto) 0.2 Baso # (Auto) 0.0 Abs Immat Gran (auto) 0.05 H Absolute Neuts (auto) 9.7 H Absolute Nucleated RBC 0.000 Nucleated RBC % (auto) 0.0 Hold Purple Top Anion Gap 15 Estim Creat Clear Calc 73.6 Estimated GFR > 60 POC Glucose 139 H 227 H Random Glucose 162 H Lactic Acid 1.8 Calcium 8.6 Total Bilirubin 1.2 H AST 24 ALT 13 Alkaline Phosphatase 153 H Total Protein 6.0 L Albumin 3.0 L Hold Yellow Top See Note Vancomycin Trough 01/13/24 01/13/24 01/13/24 06:02 07:03 11:18 MCV MCH MCHC RDW Plt Count MPV Immature Gran % (Auto) Neut % (Auto) Lymph % (Auto) [place] % (Auto) Eos % (Auto) Baso % (Auto) Lymph # (Auto) [place] # (Auto) Eos # (Auto) Baso # (Auto) Abs Immat Gran (auto) Absolute Neuts (auto) Absolute Nucleated RBC Nucleated RBC % (auto) Hold Purple Top SEE NOTE Anion Gap Estim Creat Clear Calc 74.4 Estimated GFR > 60 POC Glucose 123 H 100 Random Glucose Lactic Acid Calcium Total Bilirubin AST ALT Alkaline Phosphatase Total Protein Albumin Hold Yellow Top Vancomycin Trough 01/13/24 11:49 MCV MCH MCHC RDW Plt Count MPV Immature Gran % (Auto) Neut % (Auto) Lymph % (Auto) [place] % (Auto) Eos % (Auto) Baso % (Auto) Lymph # (Auto) [place] # (Auto) Eos # (Auto) Baso # (Auto) Abs Immat Gran (auto) Absolute Neuts (auto) Absolute Nucleated RBC Nucleated RBC % (auto) Hold Purple Top Anion Gap Estim Creat Clear Calc Estimated GFR POC Glucose Random Glucose Lactic Acid Calcium Total Bilirubin AST ALT Alkaline Phosphatase Total Protein Albumin Hold Yellow Top Vancomycin Trough 20.1 H Microbiology Microbiology Results: Microbiology 01/10/24 21:07 Blood Culture - Preliminary Blood - Venous No growth after 48 hours. 01/10/24 20:56 Blood Culture - Preliminary Blood - Venous No growth after 48 hours. Procedures Date of Service Date of Service: 01/13/24 Progress Note: A&P Assessment and plan (1) Diabetic foot ulcer associated with type 2 diabetes mellitus: Status: Acute (2) Foot ulcer, left: Status: Acute Plan Continue current plan of local wound care, IV antibiotics, elevation left lower extremity. Time Spent With Patient Time: Total time managing care of this patient today ____ minutes. Quality Stroke Does the patient have a stroke diagnosis?: No VTE Prior VTE?: No VTE Risk Level:: Medical - moderate - high VTE Device Contraindication: Treatment Not Indicated VTE Drug Contraindication: N/A - Med Ordered
[2024-01-13] MEDS: vancomycin HCL 1,250 MG in 0.9 % Sodium Chloride 250 ML 166.67 MG IV (13:57)
[2024-01-13] MEDS: 0.9 % Sodium Chloride 1,000 ML 80 ML IVCONT (13:57)
[2024-01-13 15:06] VITALS: BP 118/60; PULSE 76; RESP 18; TEMP 36.7; O2SAT 98
[2024-01-13 16:30] LABS: Glucose, Whole Blood 102 mg/dL (60-115)
[2024-01-13] MEDS: Morphine Sulfate ER 15 MG TABLET.ER PO (17:27)
[2024-01-13 19:15] VITALS: BP 138/67; PULSE 75; RESP 18; TEMP 36.2; O2SAT 97
[2024-01-13 20:08] LABS: Glucose, Whole Blood 106 mg/dL (60-115)
[2024-01-13] MEDS: Nortriptyline HCl 10 MG CAPSULE PO (20:27)
[2024-01-13] MEDS: bisacodyL 5 MG TABLET.DR 10 MG PO (20:27)
[2024-01-14] MEDS: Heparin Sodium,Porcine 5,000 UNIT/ML VIAL 5000 UNIT SUBCUT ×3 (00:18→17:34)
[2024-01-14] MEDS: Piperacillin Sodium/Tazobactam 3.375 GM in 0.9 % Sodium Chloride 50 ML IV ×4 (00:18→17:34)
[2024-01-14] MEDS: 0.9 % Sodium Chloride 1,000 ML 80 ML IVCONT (03:04)
[2024-01-14 03:30] VITALS: BP 159/74; PULSE 79; RESP 16; TEMP 36.1; O2SAT 96
[2024-01-14] MEDS: Morphine Sulfate ER 15 MG TABLET.ER PO ×2 (05:14→17:34)
[2024-01-14 05:56] LABS: Hematocrit 32.7 % (42.0-52.0); Mean Corpuscular HGB Conc 33.6 g/dl (31.0-36.0); Mean Corpuscular Hemoglobin 28.4 pg (27.0-33.0); Mean Corpuscular Volume 84.5 fL (80.0-98.0); Mean Platelet Volume 10.4 fL (9.4-12.4); Platelet Count 241 X10*3/uL (160-400); Red Blood Count 3.87 X10*6/uL (4.60-5.80); White Blood Count 8.3 X10*3/uL (4.8-10.8)
[2024-01-14 06:11] LABS: Creatinine Clr Calc Pharmacy 92.8; Estimated Glomerular Filt Rate > 60
[2024-01-14 07:29] LABS: Glucose, Whole Blood 50 mg/dL (60-115)
[2024-01-14 07:36] VITALS: BP 163/74; PULSE 75; RESP 16; TEMP 36.8; O2SAT 94
[2024-01-14 07:51] LABS: Glucose, Whole Blood 51 mg/dL (60-115)
[2024-01-14] MEDS: Dextrose 10 % 250 ML 750 ML IV (07:51)
[2024-01-14 07:58] LABS: Erythrocyte Sedimentation Rate 38 MM/HR (0-15)
--- NOTE | 2024-01-14 08:22 | P.PNGS_ITS ---
Subjective Subjective Date of Service: 01/14/24 <Evelyn Shaw PA-C - Last Filed: 01/14/24 08:25> 01/14/24 <Anderson Chapman MD - Last Filed: 01/14/24 08:38> Interval history: Denies pain. No events over the weekend. <Evelyn Shaw PA-C - Last Filed: 01/14/24 08:25> Physical Exam 2 Vital Signs: Vital Signs: Last Vital Signs Temp 98.3 F 01/14/24 07:36 Pulse 75 01/14/24 07:36 Resp 16 01/14/24 07:36 BP 163/74 H 01/14/24 07:36 Pulse Ox 94 01/14/24 07:36 O2 Del Method Room Air 01/14/24 07:36 BMI result Body Mass Index 26.5 <ALEXIS Zapien Last Filed: 01/14/24 08:25> Const: General: comfortable, no acute distress and alert <Evelyn Shaw PA-C - Last Filed: 01/14/24 08:25> Extrem: Other: left heel with persistent thick eschar, no purulence, surrounding erythema and edema improved <ALEXIS Zapien Last Filed: 01/14/24 08:25> Objective Data Active Medications Acetaminophen (Acetaminophen 325 Mg Tablet) 975 mg PO Q6H PRN PRN Reason: Pain, Mild (Pain Scale 1-3), fever or headache Last Admin: 01/12/24 18:22 Dose: 975 mg Documented By: FREDERICK Aspirin (Aspirin Enteric Coated 81 Mg Tablet.) 81 mg PO DAILY [facility] Last Admin: 01/13/24 08:46 Dose: 81 mg Documented By: FREDERICK Atorvastatin Calcium (Atorvastatin Calcium 80 Mg Tablet) 80 mg PO DAILY [facility] Last Admin: 01/13/24 08:46 Dose: 80 mg Documented By: FREDERICK Bisacodyl (Bisacodyl 5 Mg Tablet.) 10 mg PO BEDTIME [facility] Last Admin: 01/13/24 20:27 Dose: 10 mg Documented By: ERICK Clopidogrel Bisulfate (Clopidogrel Bisulfate 75 Mg Tablet) 75 mg PO DAILY [facility] Last Admin: 01/13/24 08:46 Dose: 75 mg Documented By: FREDERICK Docusate Sodium (Docusate Sodium 100 Mg Capsule) 100 mg PO BID [facility] Last Admin: 01/13/24 20:27 Dose: 100 mg Documented By: ERICK Empagliflozin (Empagliflozin 25 Mg Tablet) 25 mg PO DAILY [facility] Last Admin: 01/13/24 08:46 Dose: 25 mg Documented By: FREDERICK Famotidine (Famotidine 20 Mg Tablet) 10 mg PO BID [facility] Last Admin: 01/13/24 20:27 Dose: 10 mg Documented By: ERICK Finasteride (Finasteride 5 Mg Tablet) 5 mg PO DAILY [facility] Last Admin: 01/13/24 08:46 Dose: 5 mg Documented By: FREDERICK Glucose (Glucose Gel 15 Gm Gel..Gram.) 15 gm PO Q15M PRN; Protocol PRN Reason: per Hypoglycemia Standing Ord. Heparin Sodium (Porcine) (Heparin Sodium,Porcine 5,000 Unit/Ml Vial) 5,000 unit SUBCUT Q8H [facility] Last Admin: 01/14/24 00:18 Dose: 5,000 unit Documented By: ERICK Piperacillin Sod/Tazobactam (Sod 3.375 gm/ Sodium Chloride) 50 mls @ 100 mls/hr IV Q6H [facility] Last Infusion: 01/14/24 05:58 Dose: Infused Documented By: ERICK Dextrose (D10) 250 mls @ 750 mls/hr IV Q15M PRN; Protocol PRN Reason: per Hypoglycemia Standing Ord. Last Infusion: 01/14/24 08:20 Dose: Infused Documented By: ROSALVA Vancomycin HCl 1,250 mg/ (Sodium Chloride) 250 mls @ 166.667 mls/hr IV Q24H [facility] Last Infusion: 01/13/24 16:26 Dose: Infused Documented By: FREDERICK Sodium Chloride (Ns) 1,000 mls @ 80 mls/hr IVCONT .[id number] [facility] Last Admin: 01/14/24 03:04 Dose: 80 mls/hr Documented By: ERICK Insulin Glargine (Insulin Glargine,Hum.Rec.Anlog 100 Unit/Ml 10 Ml Vial) 16 unit SUBCUT DAILY [facility] Last Admin: 01/13/24 08:47 Dose: 16 unit Documented By: FREDERICK Insulin Human Lispro (Insulin Lispro 100 Unit/Ml 3 Ml Vial) 0 unit SUBCUT QIDACHS [facility]; Protocol Last Admin: 01/14/24 07:32 Dose: Not Given Documented By: ROSALVA Non-Admin Reason: No Insulin Coverage Comments: Isosorbide Mononitrate (Isosorbide Mononitrate 30 Mg Tab.Er.24h) 30 mg PO DAILY [facility]; Protocol Last Admin: 01/12/24 07:58 Dose: 30 mg Documented By: FREDERICK Lactulose (Lactulose 20 Gm/30 Ml Solution) 20 gm PO BID [facility] Last Admin: 01/13/24 20:36 Dose: Not Given Documented By: ERICK Non-Admin Reason: Patient Refused Losartan Potassium (Losartan Potassium 25 Mg Tablet) 12.5 mg PO DAILY [facility]; Protocol Last Admin: 01/12/24 07:58 Dose: 12.5 mg Documented By: FREDERICK Meclizine HCl (Meclizine Hcl 12.5 Mg Tablet) 12.5 mg PO TID PRN PRN Reason: dizziness Metoprolol Succinate (Metoprolol Succinate Er 50 Mg Tab.Er.24h) 50 mg PO DAILY [facility]; Protocol Last Admin: 01/12/24 07:57 Dose: 50 mg Documented By: FREDERICK Midodrine (Midodrine Hcl 5 Mg Tablet) 5 mg PO TIDWM [facility] Last Admin: 01/14/24 07:57 Dose: Not Given Documented By: ROSALVA Non-Admin Reason: BP 163/74 Morphine Sulfate (Morphine Sulfate Er 15 Mg Tablet.Er) 15 mg PO Q12H [facility] Last Admin: 01/14/24 05:14 Dose: 15 mg Documented By: ERICK Nortriptyline HCl (Nortriptyline Hcl 10 Mg Capsule) 10 mg PO BEDTIME [facility] Last Admin: 01/13/24 20:27 Dose: 10 mg Documented By: ERICK Ondansetron HCl (Ondansetron Hcl 4 Mg/2 Ml Vial) 4 mg IVPUSH Q4H PRN PRN Reason: Nausea and Vomiting Last Admin: 01/12/24 16:57 Dose: 4 mg Documented By: FREDERICK Oxycodone HCl (Oxycodone Hcl Immed Release 5 Mg Tablet) 5 mg PO Q4H PRN PRN Reason: Pain, Moderate(Pain Scale 4-6) Last Admin: 01/13/24 12:47 Dose: 5 mg Documented By: FREDERICK Pharmacy Consult (Consult Rx Vancomycin Dosing) 1 each MISCELLANE DAILY PRN PRN Reason: Consult order Polyethylene Glycol (Polyethylene Glycol 3350 17 Gm Powd.Pack) 17 gm PO DAILY [facility] Last Admin: 01/13/24 08:46 Dose: 17 gm Documented By: FREDERICK Senna (Sennosides 8.6 Mg Tablet) 17.2 mg PO DAILY [facility] Last Admin: 01/13/24 08:46 Dose: 17.2 mg Documented By: FREDERICK Sodium Chloride (0.9 % Sodium Chloride Flush 3 Ml Syringe) 3 ml IVFLUSH QSHIFT [facility] Last Admin: 01/14/24 07:34 Dose: Not Given Documented By: ROSALVA Non-Admin Reason: IV Running Tamsulosin HCl (Tamsulosin Hcl 0.4 Mg Capsule) 0.8 mg PO DAILY [facility] Last Admin: 01/12/24 07:58 Dose: 0.8 mg Documented By: FREDERICK <Evelyn Shaw PA-C - Last Filed: 01/14/24 08:25> Labs CBC & Chem 7: 01/14/24 05:24 01/14/24 05:24 <Evelyn Shaw PA-C - Last Filed: 01/14/24 08:25> Labs: Laboratory Results - last 24 hr 01/13/24 01/13/24 01/13/24 11:18 11:49 16:23 MCV MCH MCHC RDW Plt Count MPV Absolute Nucleated RBC Nucleated RBC % (auto) ESR Estim Creat Clear Calc Estimated GFR POC Glucose 100 102 Vancomycin Trough 20.1 H 01/13/24 01/14/24 01/14/24 20:05 05:24 07:24 MCV 84.5 MCH 28.4 MCHC 33.6 RDW 13.0 Plt Count 241 MPV 10.4 Absolute Nucleated RBC 0.000 Nucleated RBC % (auto) 0.0 ESR 38 H Estim Creat Clear Calc 92.8 Estimated GFR > 60 POC Glucose 106 50 L* Vancomycin Trough 01/14/24 07:46 MCV MCH MCHC RDW Plt Count MPV Absolute Nucleated RBC Nucleated RBC % (auto) ESR Estim Creat Clear Calc Estimated GFR POC Glucose 51 L* Vancomycin Trough <Evelyn Shaw PA-C - Last Filed: 01/14/24 08:25> Microbiology Microbiology Results: Microbiology 01/12/24 17:31 Blood Culture - Preliminary Blood - Venous No growth after 24 hours. 01/12/24 17:31 Blood Culture - Preliminary Blood - Venous No growth after 24 hours. <Evelyn Shaw PA-C - Last Filed: 01/14/24 08:25> Procedures Date of Service Date of Service: 01/14/24 <Evelyn Shaw PA-C - Last Filed: 01/14/24 08:25> 01/14/24 <Anderson Chapman MD - Last Filed: 01/14/24 08:38> Progress Note: A&P Assessment and plan (1) Eschar of heel: Status: Acute <ALEXIS Zapien Last Filed: 01/14/24 08:25> (2) Diabetic foot ulcer associated with type 2 diabetes mellitus: Status: Acute <ALEXIS Zapien Last Filed: 01/14/24 08:25> Assessment and Plan: Dressing changed this morning, dry dressing only was in place which was changed this morning just prior. Wet to dry dressing applied. Very thick eschar, cellulitic changes improved/resolved. Rec vascular surgery consult for evaluation. <Evelyn Shaw PA-C - Last Filed: 01/14/24 08:25> Time Spent With Patient Time: Total time managing care of this patient today ____ minutes. <Evelyn Shaw PA-C - Last Filed: 01/14/24 08:25> Quality Stroke Does the patient have a stroke diagnosis?: No <ALEXIS Zapien Last Filed: 01/14/24 08:25> VTE Prior VTE?: No <ALEXIS Zapien Last Filed: 01/14/24 08:25> VTE Risk Level:: Medical - moderate - high <ALEXIS Zapien Last Filed: 01/14/24 08:25> VTE Device Contraindication: Treatment Not Indicated <Evelyn Shaw PA-C - Last Filed: 01/14/24 08:25> VTE Drug Contraindication: N/A - Med Ordered <Evelyn Shaw PA-C - Last Filed: 01/14/24 08:25>
[2024-01-14 08:39] LABS: Glucose, Whole Blood 126 mg/dL (60-115)
[2024-01-14] MEDS: Aspirin Enteric Coated 81 MG TABLET.DR PO (09:03)
[2024-01-14] MEDS: Empagliflozin 25 MG TABLET PO (09:03)
[2024-01-14] MEDS: Docusate Sodium 100 MG CAPSULE PO ×2 (09:03→20:57)
[2024-01-14] MEDS: Atorvastatin Calcium 80 MG TABLET PO (09:03)
[2024-01-14] MEDS: Famotidine 20 MG TABLET 10 MG PO ×2 (09:03→20:58)
[2024-01-14] MEDS: polyethylene glycoL 3350 17 GM POWD.PACK PO (09:03)
[2024-01-14] MEDS: Sennosides 8.6 MG TABLET 17.2 MG PO (09:03)
[2024-01-14] MEDS: Clopidogrel Bisulfate 75 MG TABLET PO (09:03)
[2024-01-14] MEDS: Finasteride 5 MG TABLET PO (09:03)
[2024-01-14] MEDS: oxyCODONE HCl Immed Release 5 MG TABLET PO (09:08)
[2024-01-14 09:35] LABS: Glucose, Whole Blood 131 mg/dL (60-115)
--- NOTE | 2024-01-14 10:41 | HO.PM.IMPN ---
Subjective Subjective Date of Service: 01/14/24 Interval History: seen and evaluated this morning BP improved To place PICC Emerson placed sent new cultures Review of Systems Review of Systems: Yes all other systems are reviewed and are negative Physical Exam Vital Signs: Vital Signs: Last Vital Signs Temp 98.3 F 01/14/24 07:36 Pulse 75 01/14/24 07:36 Resp 16 01/14/24 07:36 BP 163/74 H 01/14/24 07:36 Pulse Ox 94 01/14/24 07:36 O2 Del Method Room Air 01/14/24 07:36 BMI result Body Mass Index 26.5 Const: Other: Constitutional : Awake, interactive, not in distress Neck : Normal inspection, Supple Cardiovascular : RRR, no JVP, no lower extremity edema Respiratory : good bilateral air entry, no crackles, wheezes or rhonchi Gastrointestinal: soft, lax, Normal bowel sounds, Non tender Skin : Warm, Dry, LLE heel wound covered with dressing with decreased pulses in DP and PT Neurological : Alert & oriented x3, No focal deficit Objective Data Active Medications Acetaminophen (Acetaminophen 325 Mg Tablet) 975 mg PO Q6H PRN PRN Reason: Pain, Mild (Pain Scale 1-3), fever or headache Last Admin: 01/12/24 18:22 Dose: 975 mg Documented By: FREDERICK Aspirin (Aspirin Enteric Coated 81 Mg Tablet.) 81 mg PO DAILY [facility] Last Admin: 01/14/24 09:03 Dose: 81 mg Documented By: ROSALVA Atorvastatin Calcium (Atorvastatin Calcium 80 Mg Tablet) 80 mg PO DAILY [facility] Last Admin: 01/14/24 09:03 Dose: 80 mg Documented By: ROSALVA Bisacodyl (Bisacodyl 5 Mg Tablet.) 10 mg PO BEDTIME [facility] Last Admin: 01/13/24 20:27 Dose: 10 mg Documented By: ERICK Clopidogrel Bisulfate (Clopidogrel Bisulfate 75 Mg Tablet) 75 mg PO DAILY [facility] Last Admin: 01/14/24 09:03 Dose: 75 mg Documented By: ROSALVA Docusate Sodium (Docusate Sodium 100 Mg Capsule) 100 mg PO BID [facility] Last Admin: 01/14/24 09:03 Dose: 100 mg Documented By: ROSALVA Empagliflozin (Empagliflozin 25 Mg Tablet) 25 mg PO DAILY [facility] Last Admin: 01/14/24 09:03 Dose: 25 mg Documented By: ROSALVA Famotidine (Famotidine 20 Mg Tablet) 10 mg PO BID [facility] Last Admin: 01/14/24 09:03 Dose: 10 mg Documented By: ROSALVA Finasteride (Finasteride 5 Mg Tablet) 5 mg PO DAILY [facility] Last Admin: 01/14/24 09:03 Dose: 5 mg Documented By: ROSALVA Glucose (Glucose Gel 15 Gm Gel..Gram.) 15 gm PO Q15M PRN; Protocol PRN Reason: per Hypoglycemia Standing Ord. Heparin Sodium (Porcine) (Heparin Sodium,Porcine 5,000 Unit/Ml Vial) 5,000 unit SUBCUT Q8H [facility] Last Admin: 01/14/24 09:03 Dose: 5,000 unit Documented By: ROSALVA Piperacillin Sod/Tazobactam (Sod 3.375 gm/ Sodium Chloride) 50 mls @ 100 mls/hr IV Q6H [facility] Last Infusion: 01/14/24 05:58 Dose: Infused Documented By: ERICK Dextrose (D10) 250 mls @ 750 mls/hr IV Q15M PRN; Protocol PRN Reason: per Hypoglycemia Standing Ord. Last Infusion: 01/14/24 08:20 Dose: Infused Documented By: ROSALVA Vancomycin HCl 1,250 mg/ (Sodium Chloride) 250 mls @ 166.667 mls/hr IV Q24H [facility] Last Infusion: 01/13/24 16:26 Dose: Infused Documented By: FREDERICK Insulin Glargine (Insulin Glargine,Hum.Rec.Anlog 100 Unit/Ml 10 Ml Vial) 16 unit SUBCUT DAILY [facility] Last Admin: 01/14/24 09:02 Dose: Not Given Documented By: ROSALVA Non-Admin Reason: No Insulin Coverage Insulin Human Lispro (Insulin Lispro 100 Unit/Ml 3 Ml Vial) 0 unit SUBCUT QIDACHS [facility]; Protocol Last Admin: 01/14/24 07:32 Dose: Not Given Documented By: ROSALVA Non-Admin Reason: No Insulin Coverage Comments: Isosorbide Mononitrate (Isosorbide Mononitrate 30 Mg Tab.Er.24h) 30 mg PO DAILY [facility]; Protocol Last Admin: 01/12/24 07:58 Dose: 30 mg Documented By: FREDERICK Lactulose (Lactulose 20 Gm/30 Ml Solution) 20 gm PO BID [facility] Last Admin: 01/14/24 09:02 Dose: Not Given Documented By: ROSALVA Non-Admin Reason: Patient Refused Losartan Potassium (Losartan Potassium 25 Mg Tablet) 12.5 mg PO DAILY [facility]; Protocol Last Admin: 01/12/24 07:58 Dose: 12.5 mg Documented By: FREDERICK Meclizine HCl (Meclizine Hcl 12.5 Mg Tablet) 12.5 mg PO TID PRN PRN Reason: dizziness Metoprolol Succinate (Metoprolol Succinate Er 50 Mg Tab.Er.24h) 50 mg PO DAILY [facility]; Protocol Last Admin: 01/12/24 07:57 Dose: 50 mg Documented By: FREDERICK Midodrine (Midodrine Hcl 5 Mg Tablet) 5 mg PO TIDWM [facility] Last Admin: 01/14/24 07:57 Dose: Not Given Documented By: ROSALVA Non-Admin Reason: BP 163/74 Morphine Sulfate (Morphine Sulfate Er 15 Mg Tablet.Er) 15 mg PO Q12H [facility] Last Admin: 01/14/24 05:14 Dose: 15 mg Documented By: ERICK Nortriptyline HCl (Nortriptyline Hcl 10 Mg Capsule) 10 mg PO BEDTIME [facility] Last Admin: 01/13/24 20:27 Dose: 10 mg Documented By: ERICK Ondansetron HCl (Ondansetron Hcl 4 Mg/2 Ml Vial) 4 mg IVPUSH Q4H PRN PRN Reason: Nausea and Vomiting Last Admin: 01/12/24 16:57 Dose: 4 mg Documented By: FREDERICK Oxycodone HCl (Oxycodone Hcl Immed Release 5 Mg Tablet) 5 mg PO Q4H PRN PRN Reason: Pain, Moderate(Pain Scale 4-6) Last Admin: 01/14/24 09:08 Dose: 5 mg Documented By: ROSALVA Pharmacy Consult (Consult Rx Vancomycin Dosing) 1 each MISCELLANE DAILY PRN PRN Reason: Consult order Polyethylene Glycol (Polyethylene Glycol 3350 17 Gm Powd.Pack) 17 gm PO DAILY [facility] Last Admin: 01/14/24 09:03 Dose: 17 gm Documented By: ROSALVA Senna (Sennosides 8.6 Mg Tablet) 17.2 mg PO DAILY [facility] Last Admin: 01/14/24 09:03 Dose: 17.2 mg Documented By: ROSALVA Sodium Chloride (0.9 % Sodium Chloride Flush 3 Ml Syringe) 3 ml IVFLUSH QSHIFT [facility] Last Admin: 01/14/24 07:34 Dose: Not Given Documented By: ROSALVA Non-Admin Reason: IV Running Tamsulosin HCl (Tamsulosin Hcl 0.4 Mg Capsule) 0.8 mg PO DAILY [facility] Last Admin: 01/12/24 07:58 Dose: 0.8 mg Documented By: FREDERICK Labs 01/14/24 05:24 01/14/24 05:24 Labs: Laboratory Results - last 24 hr 01/13/24 01/13/24 01/13/24 11:18 11:49 16:23 MCV MCH MCHC RDW Plt Count MPV Absolute Nucleated RBC Nucleated RBC % (auto) ESR Estim Creat Clear Calc Estimated GFR POC Glucose 100 102 Vancomycin Trough 20.1 H 01/13/24 01/14/24 01/14/24 20:05 05:24 07:24 MCV 84.5 MCH 28.4 MCHC 33.6 RDW 13.0 Plt Count 241 MPV 10.4 Absolute Nucleated RBC 0.000 Nucleated RBC % (auto) 0.0 ESR 38 H Estim Creat Clear Calc 92.8 Estimated GFR > 60 POC Glucose 106 50 L* Vancomycin Trough 01/14/24 01/14/24 01/14/24 07:46 08:36 09:31 MCV MCH MCHC RDW Plt Count MPV Absolute Nucleated RBC Nucleated RBC % (auto) ESR Estim Creat Clear Calc Estimated GFR POC Glucose 51 L* 126 H 131 H Vancomycin Trough Microbiology Microbiology Results: Microbiology 01/12/24 17:31 Blood Culture - Preliminary Blood - Venous No growth after 24 hours. 01/12/24 17:31 Blood Culture - Preliminary Blood - Venous No growth after 24 hours. Assessment and Plan (1) Hypotension: Status: Acute (2) Constipation in male: Status: Acute (3) Retention, urine: Status: Acute (4) Diabetic foot ulcer associated with type 2 diabetes mellitus: Status: Acute (5) Eschar of heel: Status: Acute Plan Escobar Tse is a 63 y/o man admitted with: Acute Left heel infected necrotic diabetic ulcer MRI not convincing for osteomyelitis. negative blood cultures, repeated pending Continue IV Vancomycin and Zosyn Surgery following, recurrent debridements needed Vascular surgery , no intervention needed at this point ID rec 6 weeks of Vanco\Ertapenem Place PICC follow Vanco trough Hypotension , resolved Seems to be secondary to dehydration, severe constipation and urine retention hold IVF now Urine retention Emerson placed Continue Tamsulosin and Finasteride Constipation Laxatives Type 2 diabetes mellitus. Patient has his own insulin pump. Check BG before meals at bedtime (no need for fingersticks). Diabetic diet. Essential hypertension. Continue metoprolol. Heart disease. Continue aspirin, statin, Plavix Code status: Full DVT prophylaxis: heparin subcut Patient will need hospitalization overnight for left heel infected necrotic ulcer treatment with IV antibiotics and evaluation by Specialists Quality Stroke Does the patient have a stroke diagnosis?: No VTE Prior VTE?: No VTE Risk Level:: Medical - moderate - high VTE Device Contraindication: Treatment Not Indicated VTE Drug Contraindication: N/A - Med Ordered
--- NOTE | 2024-01-14 11:03 | PM.CNGS ---
History of Present Illness Consult details Consult date: 01/14/24 Reason for consult: wound care Narrative: Very pleasant 63-year-old gentleman presents for follow-up evaluation regarding his left heel ulcer. It has been present for several months. He was brought into the emergency room for a fever. At that time he was started on vancomycin and Zosyn. He now presents to us for vascular evaluation. He has been evaluated by the Infectious Disease and general surgery teams. Review of Systems Review of Systems: Yes all other systems are reviewed and are negative Constitutional: Constitutional: Reports no additional constitutional complaints ENT: Reports Normal hearing present Cardiovascular: Cardiovascular: Denies chest pain, Denies chest pain at rest, Denies chest pain with activity and Denies pedal edema Respiratory: Respiratory: Denies cough Gastrointestinal: Gastrointestinal: Denies abdominal pain Musculoskeletal: Musculoskeletal: Denies abnormal gait, Denies muscle cramps and Denies radiating pain into limb Integumentary/Breasts: Skin/Breast: Denies skin ulcer and Denies wounds Neurologic: Reports Normal hearing present and Denies abnormal gait Psychiatric: Psychiatric: Reports no additional psychiatric complaints [facility] Past Medical History Medical History Heart attack Hypercholesterolemia HTN (hypertension) Diabetes Social History Social History Household Members: None Housing: Apartment Patient Tobacco Use Status: Never used Tobacco service: No Meds Allergies Allergy/AdvReac Type Severity Reaction Status Date / Time metformin [Metformin] Allergy Mild ? Verified 01/10/24 20:32 INTOLERANCE Active Medications: Current Medications Acetaminophen (Acetaminophen 325 Mg Tablet) 975 mg PO Q6H PRN PRN Reason: Pain, Mild (Pain Scale 1-3), fever or headache Last Admin: 01/12/24 18:22 Dose: 975 mg Aspirin (Aspirin Enteric Coated 81 Mg Tablet.) 81 mg PO DAILY [facility] Last Admin: 01/14/24 09:03 Dose: 81 mg Atorvastatin Calcium (Atorvastatin Calcium 80 Mg Tablet) 80 mg PO DAILY [facility] Last Admin: 01/14/24 09:03 Dose: 80 mg Bisacodyl (Bisacodyl 5 Mg Tablet.) 10 mg PO BEDTIME [facility] Last Admin: 01/13/24 20:27 Dose: 10 mg Clopidogrel Bisulfate (Clopidogrel Bisulfate 75 Mg Tablet) 75 mg PO DAILY [facility] Last Admin: 01/14/24 09:03 Dose: 75 mg Docusate Sodium (Docusate Sodium 100 Mg Capsule) 100 mg PO BID [facility] Last Admin: 01/14/24 09:03 Dose: 100 mg Empagliflozin (Empagliflozin 25 Mg Tablet) 25 mg PO DAILY [facility] Last Admin: 01/14/24 09:03 Dose: 25 mg Famotidine (Famotidine 20 Mg Tablet) 10 mg PO BID [facility] Last Admin: 01/14/24 09:03 Dose: 10 mg Finasteride (Finasteride 5 Mg Tablet) 5 mg PO DAILY [facility] Last Admin: 01/14/24 09:03 Dose: 5 mg Glucose (Glucose Gel 15 Gm Gel..Gram.) 15 gm PO Q15M PRN; Protocol PRN Reason: per Hypoglycemia Standing Ord. Heparin Sodium (Porcine) (Heparin Sodium,Porcine 5,000 Unit/Ml Vial) 5,000 unit SUBCUT Q8H [facility] Last Admin: 01/14/24 09:03 Dose: 5,000 unit Piperacillin Sod/Tazobactam (Sod 3.375 gm/ Sodium Chloride) 50 mls @ 100 mls/hr IV Q6H [facility] Last Infusion: 01/14/24 05:58 Dose: Infused Dextrose (D10) 250 mls @ 750 mls/hr IV Q15M PRN; Protocol PRN Reason: per Hypoglycemia Standing Ord. Last Infusion: 01/14/24 08:20 Dose: Infused Vancomycin HCl 1,250 mg/ (Sodium Chloride) 250 mls @ 166.667 mls/hr IV Q24H [facility] Last Infusion: 01/13/24 16:26 Dose: Infused Insulin Glargine (Insulin Glargine,Hum.Rec.Anlog 100 Unit/Ml 10 Ml Vial) 16 unit SUBCUT DAILY [facility] Last Admin: 01/14/24 09:02 Dose: Not Given Insulin Human Lispro (Insulin Lispro 100 Unit/Ml 3 Ml Vial) 0 unit SUBCUT QIDACHS [facility]; Protocol Last Admin: 01/14/24 07:32 Dose: Not Given Isosorbide Mononitrate (Isosorbide Mononitrate 30 Mg Tab.Er.24h) 30 mg PO DAILY [facility]; Protocol Last Admin: 01/12/24 07:58 Dose: 30 mg Lactulose (Lactulose 20 Gm/30 Ml Solution) 20 gm PO BID [facility] Last Admin: 01/14/24 09:02 Dose: Not Given Losartan Potassium (Losartan Potassium 25 Mg Tablet) 12.5 mg PO DAILY [facility]; Protocol Last Admin: 01/12/24 07:58 Dose: 12.5 mg Meclizine HCl (Meclizine Hcl 12.5 Mg Tablet) 12.5 mg PO TID PRN PRN Reason: dizziness Metoprolol Succinate (Metoprolol Succinate Er 50 Mg Tab.Er.24h) 50 mg PO DAILY [facility]; Protocol Last Admin: 01/12/24 07:57 Dose: 50 mg Midodrine (Midodrine Hcl 5 Mg Tablet) 5 mg PO TIDWM [facility] Last Admin: 01/14/24 07:57 Dose: Not Given Morphine Sulfate (Morphine Sulfate Er 15 Mg Tablet.Er) 15 mg PO Q12H [facility] Last Admin: 01/14/24 05:14 Dose: 15 mg Nortriptyline HCl (Nortriptyline Hcl 10 Mg Capsule) 10 mg PO BEDTIME [facility] Last Admin: 01/13/24 20:27 Dose: 10 mg Ondansetron HCl (Ondansetron Hcl 4 Mg/2 Ml Vial) 4 mg IVPUSH Q4H PRN PRN Reason: Nausea and Vomiting Last Admin: 01/12/24 16:57 Dose: 4 mg Oxycodone HCl (Oxycodone Hcl Immed Release 5 Mg Tablet) 5 mg PO Q4H PRN PRN Reason: Pain, Moderate(Pain Scale 4-6) Last Admin: 01/14/24 09:08 Dose: 5 mg Pharmacy Consult (Consult Rx Vancomycin Dosing) 1 each MISCELLANE DAILY PRN PRN Reason: Consult order Polyethylene Glycol (Polyethylene Glycol 3350 17 Gm Powd.Pack) 17 gm PO DAILY [facility] Last Admin: 01/14/24 09:03 Dose: 17 gm Senna (Sennosides 8.6 Mg Tablet) 17.2 mg PO DAILY [facility] Last Admin: 01/14/24 09:03 Dose: 17.2 mg Sodium Chloride (0.9 % Sodium Chloride Flush 3 Ml Syringe) 3 ml IVFLUSH QSHIFT [facility] Last Admin: 01/14/24 07:34 Dose: Not Given Tamsulosin HCl (Tamsulosin Hcl 0.4 Mg Capsule) 0.8 mg PO DAILY [facility] Last Admin: 01/12/24 07:58 Dose: 0.8 mg Home Medications ?Medication ?Instructions ?Recorded ?Confirmed ?Last Taken ?Type aspirin 81 mg tablet,delayed 81 mg PO DAILY 01/11/24 01/11/24 01/10/24 History release atorvastatin 80 mg tablet 80 mg PO DAILY 01/11/24 01/11/24 01/10/24 History clopidogrel 75 mg tablet 75 mg PO DAILY 01/11/24 01/11/24 01/10/24 History docusate sodium 100 mg tablet 100 mg PO BID PRN constipation 01/11/24 01/11/24 01/10/24 History (Stool Softener) empagliflozin 25 mg tablet 25 mg PO DAILY 01/11/24 01/11/24 01/10/24 History (Jardiance) famotidine 10 mg tablet (Heartburn 10 mg PO BID 01/11/24 01/11/24 01/10/24 History Relief (famotidine)) finasteride 5 mg tablet 5 mg PO DAILY 01/11/24 01/11/24 01/10/24 History insulin glargine 100 unit/mL (3 23 unit subcut DAILY 01/11/24 01/11/24 01/10/24 History mL) subcutaneous pen (Lantus Solostar U-100 Insulin) insulin lispro 100 unit/mL 1 sliding scale dose subcut TID 01/11/24 01/11/24 01/10/24 History subcutaneous pen (Humalog KwikPen (U-100) Insulin) isosorbide mononitrate 30 mg 30 mg PO DAILY 01/11/24 01/11/24 01/10/24 History tablet,extended release 24 hr losartan 25 mg tablet 12.5 mg PO DAILY 01/11/24 01/11/24 01/10/24 History meclizine 12.5 mg tablet 12.5 mg PO TID PRN dizziness 01/11/24 01/11/24 01/10/24 History metoprolol succinate 50 mg 50 mg PO DAILY 01/11/24 01/11/24 01/10/24 History tablet,extended release 24 hr midodrine 5 mg tablet 5 mg PO TID 01/11/24 01/11/24 01/10/24 History morphine 15 mg tablet,extended 15 mg PO Q12H 01/11/24 01/11/2424 History release nortriptyline 10 mg capsule 10 mg PO BEDTIME 01/11/24 01/11/24 01/10/24 History ondansetron 4 mg disintegrating 4 mg PO Q8H PRN nausea/vomiting 01/11/24 01/11/24 01/10/24 History tablet oxycodone 10 mg tablet 10 mg PO Q6H PRN pain 01/11/24 01/11/24 01/10/24 History polyethylene glycol 3350 17 17 g PO DAILY 01/11/24 01/11/24 Unknown History gram/dose oral powder (Gavilax) sennosides 8.6 mg tablet (senna) 17.2 mg PO DAILY 01/11/24 01/11/24 01/10/24 History tamsulosin 0.4 mg capsule 0.8 mg PO DAILY 01/11/24 01/11/24 01/10/24 History Physical Exam Vital Signs: Vital Signs: Last Vital Signs Temp 98.3 F 01/14/24 07:36 Pulse 75 01/14/24 07:36 Resp 16 01/14/24 07:36 BP 163/74 H 01/14/24 07:36 Pulse Ox 94 01/14/24 07:36 O2 Del Method Room Air 01/14/24 07:36 BMI result Body Mass Index 26.5 Const: General: cooperative, healthy appearing and comfortable Orientation/consciousness: oriented to person, oriented to place and oriented to time HEENT: Head: Yes normal to inspection Neck: Neck: Yes normal visual inspection Carotids: no bruits Chest: Chest palpation & inspection: normal inspection of the chest Resp: Effort & Inspection: normal respiratory effort and able to speak in complete sentences Auscultation: clear to auscultation bilaterally, no crackles, no rales, no rhonchi and no wheezes Cardio: Other: Palpable left posterior tibial pulse Rate: regular rate Rhythm: regular rhythm Heart sounds: S1 normal heart sound present and S2 normal heart sound present Bruits: no carotid bruits Peripheral pulses: Peripheral pulses 2+ throughout GI: Inspection: Yes normal to inspection Skin: Other: Left heel ulcer Wounds: no wounds Hair: normal Neuro: General: oriented to person, oriented to place and oriented to time Cranial nerves: Yes CN's II-XII intact bilaterally and Yes Normal hearing present Cognition (Neuro): normal cognition Motor exam (neuro): 5/5 motor strength present throughout Extrem: Other: venous exam: No significant superficial varicosities or spider telangiectasias, minimal edema General: No clubbing, No cyanosis and No edema Psych: Appearance: grossly normal Mental Status: mental status grossly normal Speech and movement: Normal speech and movement present Results Labs 01/14/24 05:24 01/14/24 05:24 Labs: Abnormal lab results 01/13/24 01/14/24 01/14/24 Range/Units 11:49 05:24 07:24 RBC 3.87 L (4.60-5.80) X10*6/uL Hgb 11.0 L (14.0-18.0) g/dl Hct 32.7 L (42.0-52.0) % ESR 38 H (0-15) MM/HR POC Glucose 50 L* (60-115) mg/dL Vancomycin Trough 20.1 H (10.0-20.0) mcg/mL 01/14/24 01/14/24 01/14/24 Range/Units 07:46 08:36 09:31 RBC (4.60-5.80) X10*6/uL Hgb (14.0-18.0) g/dl Hct (42.0-52.0) % ESR (0-15) MM/HR POC Glucose 51 L* 126 H 131 H (60-115) mg/dL Vancomycin Trough (10.0-20.0) mcg/mL Short CBC 01/14/24 Range/Units 05:24 WBC 8.3 (4.8-10.8) X10*3/uL Hgb 11.0 L (14.0-18.0) g/dl Hct 32.7 L (42.0-52.0) % Plt Count 241 (160-400) X10*3/uL BMP 01/14/24 05:24 Creatinine 0.69 All other labs normal. Assessment and Plan (1) Foot ulcer, left: Qualifiers: Non-pressure ulcer stage: with necrosis of muscle Qualified Code(s): L97.523 - Non-pressure chronic ulcer of other part of left foot with necrosis of muscle Status: Acute Plan In short patient has left heel ulcer. This appears to be more pressure in nature. We did discuss local wound care. In addition and offloading boot. His arterial supply does appear to be intact. He is scheduled for 616 of IV antibiotics. If no significant improvement he is at high risk for below-knee amputation. This was discussed with the patient and the patient's who was at bedside. Thank you for allowing us to assist in his care. Procedures Date of Service Date of Service: 01/14/24
[2024-01-14 11:14] LABS: Glucose, Whole Blood 115 mg/dL (60-115)
[2024-01-14 12:00] VITALS: BP 154/68; PULSE 87; RESP 16; TEMP 37.3; O2SAT 97
[2024-01-14 12:56] LABS: Vancomycin Random 14.5 mcg/mL (15-20)
--- NOTE | 2024-01-14 13:05 | MHC.CM.PN ---
Per MD rounds patient is not medically cleared for dc. Per MD rounds patient will required 6 wks IV abx. CM met with patient w/ benzene still utility operator assistance. Patient states his son is his DRIVER'S LICENSE REVIEWING OFFICER and will assist w/ IV abx. CM spoke w/ son, Salas @ [phone]. Salas is agreeable and will be present for teach w/ [facility] when scheduled. CM will continue to follow.
--- NOTE | 2024-01-14 13:11 | HE.PHANOTE ---
RE: VANCO DOSING Random came back as 14.5 which is appropriate for indication (skin). Continue with dose of 1250 mg q12h, may need to increase dose tomorrow if level comes back too low. Random is scheduled for 01/15/24 @1200.
[2024-01-14] MEDS: vancomycin HCL 1,250 MG in 0.9 % Sodium Chloride 250 ML 166.67 MG IV (13:25)
--- NOTE | 2024-01-14 16:25 | HO.PICC ---
PICC Line Insertion NPICC Diagnosis: Diabetic foot ulcer Indication: 6wks ABT Pertinent Labs: reviewed Technique: Following informed consent including risks, benefits and alternatives and using sterile technique including cap and mask, sterile gown, glove and drape, the left arm was prepped and draped in the usual sterile fashion of full barrier technique with G. Following completion of Newton Protocol the skin and soft tissues were anesthetized with 1% Lidocaine plain. Using ultrasound guidance, left basilic vein access was obtained. Over an 0.018 wire through peel-away sheath, a 4fr single lumen PASV PICC line was positioned. Catheter length is 40cm internal length, 0cm external length, for a total trimmed length of 40cm. The procedure was performed in [facility]. Tip verification was performed by Daniel Bansal with Sherlock 3CG. Tip located in SVC. Ultrasound was used to document vein patency and for needle entry. A formal ultrasound picture and cardiac rhythm strip was recorded. Vascular Automotive Collision Repair Instructor has released the line for use and it is currently dressed with a StatLock, Tegaderm, and CHG disc. Verification has been performed for blood return and line patency. Arm Circumference: 30cm Equipment: Carreira Beauty PowerPICC catheter with Sherlock 3CG Catheter Type: 4FR single lumen PASV catheter Lot #: [id number]
[2024-01-14 16:55] LABS: Glucose, Whole Blood 77 mg/dL (60-115)
[2024-01-14 17:06] VITALS: BP 164/86; PULSE 92; RESP 18; TEMP 37; O2SAT 98
[2024-01-14 19:52] VITALS: BP 134/65; PULSE 80; RESP 18; TEMP 36.9; O2SAT 100
[2024-01-14 20:09] LABS: Glucose, Whole Blood 174 mg/dL (60-115)
[2024-01-14] MEDS: Nortriptyline HCl 10 MG CAPSULE PO (20:57)
[2024-01-14] MEDS: bisacodyL 5 MG TABLET.DR 10 MG PO (20:58)
[2024-01-14] MEDS: Insulin Lispro 100 UNIT/ML 3 ML VIAL SUBCUT (21:00)
[2024-01-14] MEDS: 0.9 % Sodium Chloride Flush 10 ML SYRINGE 5 ML IVFLUSH (21:01)
[2024-01-14] MEDS: 0.9 % Sodium Chloride Flush 3 ML SYRINGE IVFLUSH (21:01)
[2024-01-14 23:55] VITALS: BP 157/79; PULSE 82; RESP 18; TEMP 36.3; O2SAT 98
[2024-01-15] MEDS: oxyCODONE HCl Immed Release 5 MG TABLET PO (00:11)
[2024-01-15] MEDS: Heparin Sodium,Porcine 5,000 UNIT/ML VIAL 5000 UNIT SUBCUT ×2 (00:12→09:14)
[2024-01-15] MEDS: Piperacillin Sodium/Tazobactam 3.375 GM in 0.9 % Sodium Chloride 50 ML IV ×2 (00:18→05:33)
[2024-01-15 03:30] VITALS: BP 168/83; PULSE 82; RESP 17; TEMP 36.2; O2SAT 97
[2024-01-15] MEDS: Morphine Sulfate ER 15 MG TABLET.ER PO (05:30)
[2024-01-15 06:33] LABS: Creatinine Clr Calc Pharmacy 94.2; Estimated Glomerular Filt Rate > 60
[2024-01-15 06:34] LABS: Estimated Average Glucose 177 mg/dL; Hemoglobin A1C 185.1993 umol/L; Hemoglobin A1c % 7.8 % (<6.0)
[2024-01-15 06:56] LABS: Anion Gap 15 (12-20); Blood Urea Nitrogen 3 mg/dL (9-16); Calcium 8.6 mg/dL (8.4-10.2); Carbon Dioxide 23 mmol/L (22-29); Chloride 106 mmol/L (96-108); Creatinine Clr Calc Pharmacy 92.8; Estimated Glomerular Filt Rate > 60; Glucose Random 86 mg/dL (60-115); Potassium 2.9 mmol/L (3.3-5.1); Sodium 141 mmol/L (135-145)
[2024-01-15 07:19] LABS: Glucose, Whole Blood 88 mg/dL (60-115)
[2024-01-15 08:00] VITALS: BP 169/87; PULSE 84; RESP 16; TEMP 36.3; O2SAT 96
[2024-01-15] MEDS: Potassium Chloride ER 20 MEQ TAB.ER.PRT 40 MEQ PO (09:12)
[2024-01-15] MEDS: Atorvastatin Calcium 80 MG TABLET PO (09:12)
[2024-01-15] MEDS: Sennosides 8.6 MG TABLET 17.2 MG PO (09:12)
[2024-01-15] MEDS: Clopidogrel Bisulfate 75 MG TABLET PO (09:12)
[2024-01-15] MEDS: Docusate Sodium 100 MG CAPSULE PO (09:12)
[2024-01-15] MEDS: Aspirin Enteric Coated 81 MG TABLET.DR PO (09:12)
[2024-01-15] MEDS: Famotidine 20 MG TABLET 10 MG PO (09:13)
[2024-01-15] MEDS: Finasteride 5 MG TABLET PO (09:13)
[2024-01-15] MEDS: Insulin Glargine,Hum.rec.anlog 100 UNIT/ML 10 ML VIAL 10 UNIT SUBCUT (09:13)
[2024-01-15] MEDS: Potassium Chloride Packet 20 MEQ PACKET 40 MEQ PO (09:13)
[2024-01-15] MEDS: polyethylene glycoL 3350 17 GM POWD.PACK PO (09:13)
[2024-01-15] MEDS: Empagliflozin 25 MG TABLET PO (09:13)
[2024-01-15] MEDS: 0.9 % Sodium Chloride Flush 10 ML SYRINGE 5 ML IVFLUSH (09:14)
[2024-01-15] MEDS: 0.9 % Sodium Chloride Flush 3 ML SYRINGE IVFLUSH (09:14)
--- NOTE | 2024-01-15 10:44 | P.PNGS_ITS ---
Subjective Subjective Date of Service: 01/15/24 <Evelyn Shaw PA-C - Last Filed: 01/15/24 10:48> 01/15/24 <All Gilmore MD - Last Filed: 01/15/24 12:29> Interval history: No new complaints. <ALEXIS Zapien Last Filed: 01/15/24 10:48> Physical Exam 2 Vital Signs: Vital Signs: Last Vital Signs Temp 97.3 F 01/15/24 08:00 Pulse 84 01/15/24 08:00 Resp 16 01/15/24 08:00 BP 169/87 H 01/15/24 08:00 Pulse Ox 96 01/15/24 08:00 O2 Del Method Room Air 01/15/24 08:00 BMI result Body Mass Index 26.5 <ALEXIS Zapien Last Filed: 01/15/24 10:48> Const: General: comfortable, no acute distress and alert <Evelyn Shaw PA-C - Last Filed: 01/15/24 10:48> Orientation/consciousness: patient oriented x3 <Evelyn Shaw PA-C - Last Filed: 01/15/24 10:48> Neuro: General: patient oriented x3 and moves all extremities <ALEXIS Zapien Last Filed: 01/15/24 10:48> Extrem: Other: left heel with large eschar that was sharply debrided again at bedside with scissors down to viable appearing subq tissue. No palpable bone. <Evelyn Shaw PA-C - Last Filed: 01/15/24 10:48> Objective Data Active Medications Acetaminophen (Acetaminophen 325 Mg Tablet) 975 mg PO Q6H PRN PRN Reason: Pain, Mild (Pain Scale 1-3), fever or headache Last Admin: 01/12/24 18:22 Dose: 975 mg Documented By: FREDERICK Aspirin (Aspirin Enteric Coated 81 Mg Tablet.) 81 mg PO DAILY [facility] Last Admin: 01/15/24 09:12 Dose: 81 mg Documented By: ERIKA Atorvastatin Calcium (Atorvastatin Calcium 80 Mg Tablet) 80 mg PO DAILY [facility] Last Admin: 01/15/24 09:12 Dose: 80 mg Documented By: ERIKA Bisacodyl (Bisacodyl 5 Mg Tablet.) 10 mg PO BEDTIME [facility] Last Admin: 01/14/24 20:58 Dose: 10 mg Documented By: ROBBIE Clopidogrel Bisulfate (Clopidogrel Bisulfate 75 Mg Tablet) 75 mg PO DAILY [facility] Last Admin: 01/15/24 09:12 Dose: 75 mg Documented By: ERIKA Docusate Sodium (Docusate Sodium 100 Mg Capsule) 100 mg PO BID [facility] Last Admin: 01/15/24 09:12 Dose: 100 mg Documented By: ERIKA Empagliflozin (Empagliflozin 25 Mg Tablet) 25 mg PO DAILY [facility] Last Admin: 01/15/24 09:13 Dose: 25 mg Documented By: ERIKA Famotidine (Famotidine 20 Mg Tablet) 10 mg PO BID [facility] Last Admin: 01/15/24 09:13 Dose: 10 mg Documented By: ERIKA Finasteride (Finasteride 5 Mg Tablet) 5 mg PO DAILY [facility] Last Admin: 01/15/24 09:13 Dose: 5 mg Documented By: ERIKA Glucose (Glucose Gel 15 Gm Gel..Gram.) 15 gm PO Q15M PRN; Protocol PRN Reason: per Hypoglycemia Standing Ord. Heparin Sodium (Porcine) (Heparin Sodium,Porcine 5,000 Unit/Ml Vial) 5,000 unit SUBCUT Q8H [facility] Last Admin: 01/15/24 09:14 Dose: 5,000 unit Documented By: ERIKA Dextrose (D10) 250 mls @ 750 mls/hr IV Q15M PRN; Protocol PRN Reason: per Hypoglycemia Standing Ord. Last Infusion: 01/14/24 08:20 Dose: Infused Documented By: ROSALVA Insulin Glargine (Insulin Glargine,Hum.Rec.Anlog 100 Unit/Ml 10 Ml Vial) 10 unit SUBCUT DAILY [facility] Last Admin: 01/15/24 09:13 Dose: 10 unit Documented By: ERIKA Insulin Human Lispro (Insulin Lispro 100 Unit/Ml 3 Ml Vial) 0 unit SUBCUT QIDACHS [facility]; Protocol Last Admin: 01/15/24 07:24 Dose: Not Given Documented By: ERIKA Non-Admin Reason: No Insulin Coverage Isosorbide Mononitrate (Isosorbide Mononitrate 30 Mg Tab.Er.24h) 30 mg PO DAILY [facility]; Protocol Last Admin: 01/12/24 07:58 Dose: 30 mg Documented By: FREDERICK Lactulose (Lactulose 20 Gm/30 Ml Solution) 20 gm PO BID [facility] Last Admin: 01/15/24 09:20 Dose: Not Given Documented By: ERIKA Non-Admin Reason: Patient Refused Losartan Potassium (Losartan Potassium 25 Mg Tablet) 12.5 mg PO DAILY [facility]; Protocol Last Admin: 01/12/24 07:58 Dose: 12.5 mg Documented By: FREDERICK Meclizine HCl (Meclizine Hcl 12.5 Mg Tablet) 12.5 mg PO TID PRN PRN Reason: dizziness Metoprolol Succinate (Metoprolol Succinate Er 50 Mg Tab.Er.24h) 50 mg PO DAILY [facility]; Protocol Last Admin: 01/12/24 07:57 Dose: 50 mg Documented By: FREDERICK Midodrine (Midodrine Hcl 5 Mg Tablet) 5 mg PO TIDWM PRN PRN Reason: SBP <100 Morphine Sulfate (Morphine Sulfate Er 15 Mg Tablet.Er) 15 mg PO Q12H [facility] Last Admin: 01/15/24 05:30 Dose: 15 mg Documented By: ROBBIE Nortriptyline HCl (Nortriptyline Hcl 10 Mg Capsule) 10 mg PO BEDTIME [facility] Last Admin: 01/14/24 20:57 Dose: 10 mg Documented By: ROBBIE Ondansetron HCl (Ondansetron Hcl 4 Mg/2 Ml Vial) 4 mg IVPUSH Q4H PRN PRN Reason: Nausea and Vomiting Last Admin: 01/12/24 16:57 Dose: 4 mg Documented By: FREDERICK Oxycodone HCl (Oxycodone Hcl Immed Release 5 Mg Tablet) 5 mg PO Q4H PRN PRN Reason: Pain, Moderate(Pain Scale 4-6) Last Admin: 01/15/24 00:11 Dose: 5 mg Documented By: ROBBIE Pharmacy Consult (Consult Rx Vancomycin Dosing) 1 each MISCELLANE DAILY PRN PRN Reason: Consult order Polyethylene Glycol (Polyethylene Glycol 3350 17 Gm Powd.Pack) 17 gm PO DAILY [facility] Last Admin: 01/15/24 09:13 Dose: 17 gm Documented By: ERIKA Senna (Sennosides 8.6 Mg Tablet) 17.2 mg PO DAILY [facility] Last Admin: 01/15/24 09:12 Dose: 17.2 mg Documented By: ERIKA Sodium Chloride (0.9 % Sodium Chloride Flush 3 Ml Syringe) 3 ml IVFLUSH QSHIFT [facility] Last Admin: 01/15/24 09:14 Dose: 3 ml Documented By: ERIKA Sodium Chloride (0.9 % Sodium Chloride Flush 10 Ml Syringe) 5 ml IVFLUSH TID [facility] Last Admin: 01/15/24 09:14 Dose: 5 ml Documented By: ERIKA Tamsulosin HCl (Tamsulosin Hcl 0.4 Mg Capsule) 0.8 mg PO DAILY [facility] Last Admin: 01/12/24 07:58 Dose: 0.8 mg Documented By: FREDERICK <Evelyn Shaw PA-C - Last Filed: 01/15/24 10:48> Labs CBC & Chem 7: 01/14/24 05:24 01/15/24 05:16 <Evelyn Shaw PA-C - Last Filed: 01/15/24 10:48> Labs: Laboratory Results - last 24 hr 01/14/24 01/14/24 01/14/24 11:04 12:05 16:51 Anion Gap Estim Creat Clear Calc Estimated GFR POC Glucose 115 77 Random Glucose Estimat Average Glucose Hemoglobin A1c % Calcium Random Vancomycin 14.5 L 01/14/24 01/15/24 01/15/24 20:03 05:16 05:16 Anion Gap 15 Estim Creat Clear Calc 94.2 92.8 Estimated GFR > 60 POC Glucose 174 H Random Glucose Estimat Average Glucose Hemoglobin A1c % Calcium Random Vancomycin 01/15/24 01/15/24 05:16 07:14 Anion Gap Estim Creat Clear Calc Estimated GFR > 60 POC Glucose 88 Random Glucose 86 Estimat Average Glucose 177 Hemoglobin A1c % 7.8 H Calcium 8.6 Random Vancomycin <Evelyn Shaw PA-C - Last Filed: 01/15/24 10:48> Microbiology Microbiology Results: Microbiology 01/12/24 17:31 Blood Culture - Preliminary Blood - Venous No growth after 48 hours. 01/12/24 17:31 Blood Culture - Preliminary Blood - Venous No growth after 48 hours. <Evelyn Shaw PA-C - Last Filed: 01/15/24 10:48> Procedures Date of Service Date of Service: 01/15/24 <Evelyn Shaw PA-C - Last Filed: 01/15/24 10:48> 01/15/24 <All Gilmore MD - Last Filed: 01/15/24 12:29> Progress Note: A&P Assessment and plan (1) Eschar of heel: Status: Acute <Evelyn Shaw PA-C - Last Filed: 01/15/24 10:48> Assessment and Plan: Patient seen and examined Thick eschar on the left heel I did sharp excisional debridement of the eschar involving the full-thickness of the skin and part of the subcutaneous layer down to viable tissue Area debrided was about 7 x 4 cm Wet-to-dry dressings applied Continue daily wound care Seen and examined independently <All Gilmore MD - Last Filed: 01/15/24 12:29> (2) Diabetic foot ulcer associated with type 2 diabetes mellitus: Status: Acute <Evelyn Shaw PA-C - Last Filed: 01/15/24 10:48> Assessment and Plan: Seen by vascular surgery who felt this was pressure related. S/p sharp excisional debridement of 7x3cm eschar at bedside down to subq tissue. Wound base appears viable, some bleeding noted. Cont foot elevation, offloading of pressure. Cont local wound care and wet to dry dressing changes daily followed by dry fluffs and kerlix wrap. <Evelyn Shaw PA-C - Last Filed: 01/15/24 10:48> Time Spent With Patient Time: Total time managing care of this patient today ____ minutes. <Evelyn Shaw PA-C - Last Filed: 01/15/24 10:48> Quality Stroke Does the patient have a stroke diagnosis?: No <Evelyn Shaw PA-C - Last Filed: 01/15/24 10:48> VTE Prior VTE?: No <ALEXIS Zapien Last Filed: 01/15/24 10:48> VTE Risk Level:: Medical - moderate - high <Evelyn Shaw PA-C - Last Filed: 01/15/24 10:48> VTE Device Contraindication: Treatment Not Indicated <ALEXIS Zapien Last Filed: 01/15/24 10:48> VTE Drug Contraindication: N/A - Med Ordered <Evelyn Shaw PA-C - Last Filed: 01/15/24 10:48>
[2024-01-15] MEDS: Ertapenem Sodium 1 GM in 0.9 % Sodium Chloride 50 ML IV (11:15)
[2024-01-15 11:22] LABS: Glucose, Whole Blood 59 mg/dL (60-115)
--- NOTE | 2024-01-15 11:46 | PM.DS ---
DS: Providers Provider Date of Service: 01/15/24 Date of admission: 01/11/24 00:34 Primary care physician: Claire Trujillo MD Consults: 01/11/24 00:42 Consult to General Surgery Routine Consulting Provider: [facility] General Surgeons Reason for consultation: Left heel infected diabetic necrotic ulcer Has provider been notified: No 01/11/24 02:00 Consult to Wound Care Routine Reason for consultation: unstageable dm ulcer lt heel 01/11/24 11:39 Consult to Vascular Surgery Routine Consulting Provider: [facility] Vascular Services Reason for consultation: left heel ulcer Has provider been notified: No 01/12/24 07:16 Consult to Infectious Diseases Routine Consulting Provider: [facility] Reason for consultation: Diabetic deep ulcer w non-definite OM in MRI 01/12/24 18:32 Consult to Critical Care Stat Consulting Provider: López Lorenzana Reason for consultation: Persistent Hypotension post DS: Diagnosis Discharge Diagnosis (1) Eschar of heel: Status: Acute (2) Diabetic foot ulcer associated with type 2 diabetes mellitus: Status: Acute DS: Summary Hospital Course Hospital Course: Admission note HPI Escobar Tse is a 63 years old man with past medical history significant for diabetes mellitus on insulin pump, chronic left heel ulcer, hyperlipidemia and hypertension presents to the emergency department after he had an event of fever (102) this morning associated with generalized body aches, chills, nausea, vomiting and dizziness. He denied chest pain, sore throat, cough, shortness of breath, abdominal pain, diarrhea or pain with urination. He mentioned that he left heel ulcer is foul-smelling. He has been getting of patient follow-up for this ulcer. He denied alcohol abuse, tobacco smoking or illicit drug use. In the ED, he was found to have fever of 102.8, there is no tachycardia or hypotension. His oxygen saturation is normal on room air. Blood workup showed no leukocytosis. Hemoglobin is 12.9 and platelets are normal. CRP is 8.69. INR is 1.2. There are no electrolyte imbalances, renal function is normal. LFTs are unremarkable except for slight elevation of bilirubin and alk-phos. Left foot x-ray, results pending. ED tx: NS 1 L bolus, vancomycin 1.5 g IV, Zosyn 3.375 g IV, morphine 4 mg IV, Zofran 4 mg IV, acetaminophen 650 mg PO. Hospital course The patient was admitted for treatment of Acute Left heel infected necrotic diabetic ulcer with MRI not convincing for osteomyelitis but the depth of the wound and close proximity to bone and the risk of losing the foot if infection got worse in the future was convincing enough to treat it as osteomyelitis for infectious disease and surgeons who did bedside debridement as blood cultures remained negative as he was treated with IV Vancomycin and Zosyn. he was also seen by Vascular surgery who recommended no intervention needed at this point. ID rec 6 weeks of Ertapenem as we Placed a PICC line. to be followed by visiting nurses after discharge. He multiple events of Hypotension requiring multipile IV fluids boluses and Albumin along with Midodrine. Seems to be secondary to dehydration, severe constipation and urine retention as it improved with hydration and moving bowels. He is on HTN medications but at the same time on Midodrine which dont usually add up. We discussed the need to check BP at home while OFF Midodrine and report readings to PCP to decide the need of it. Developed Urine retention likely from worsening constipation. Had Emerson placed and resumed on Tamsulosin and Finasteride. Emerson was removed and he was able to pass urine prior to discharge. For Constipation he was advised to use Laxatives with goal of 1 BM daily. Discharge plan Continue Wound care IV Ertapenem to finish 6 weeks of antibiotics Use Midodrine as needed for low Blood pressure; monitor your blood pressure readings at home for 1 week and report readings to PCP for further adjustments in home medications Take Laxatives to avoid constipation Time Attestation Discharge Coordination Time (in mins): 38 Quality: Safe Use of Opioids Does Pt have an Active Cancer Diagnosis on the Problem List?: No Quality: Stroke Does the patient have a stroke diagnosis?: No Physical Exam Vital Signs: Vital Signs: Last Vital Signs Temp 97.3 F 01/15/24 08:00 Pulse 84 01/15/24 08:00 Resp 16 01/15/24 08:00 BP 169/87 H 01/15/24 08:00 Pulse Ox 96 01/15/24 08:00 O2 Del Method Room Air 01/15/24 08:00 BMI result Body Mass Index 26.5 Const: Other: Constitutional : Awake, interactive, not in distress Neck : Normal inspection, Supple Cardiovascular : RRR, no JVP, no lower extremity edema Respiratory : good bilateral air entry, no crackles, wheezes or rhonchi Gastrointestinal: soft, lax, Normal bowel sounds, Non tender Skin : Warm, Dry, LLE heel wound covered with dressing Neurological : Alert & oriented x3, No focal deficit DS: Data Data Completed and Pending Labs on day of discharge: Laboratory Results - last 24 hr 01/14/24 01/14/24 01/14/24 12:05 16:51 20:03 Sodium Potassium Chloride Carbon Dioxide Anion Gap BUN Creatinine Estim Creat Clear Calc Estimated GFR POC Glucose 77 174 H Random Glucose Estimat Average Glucose Hemoglobin A1c % Calcium Random Vancomycin 14.5 L 01/15/24 01/15/24 01/15/24 05:16 05:16 05:16 Sodium 141 Potassium 2.9 L* D Chloride 106 Carbon Dioxide 23 Anion Gap 15 BUN 3 L Creatinine 0.68 0.69 Estim Creat Clear Calc 94.2 92.8 Estimated GFR > 60 POC Glucose Random Glucose Estimat Average Glucose Hemoglobin A1c % Calcium Random Vancomycin 01/15/24 01/15/24 01/15/24 05:16 07:14 11:18 Sodium Potassium Chloride Carbon Dioxide Anion Gap BUN Creatinine Estim Creat Clear Calc Estimated GFR > 60 POC Glucose 88 59 L* Random Glucose 86 Estimat Average Glucose 177 Hemoglobin A1c % 7.8 H Calcium 8.6 Random Vancomycin Preliminary micro results at discharge 01/12/24 17:31 Blood Culture - Preliminary Blood - Venous No growth after 48 hours. 01/12/24 17:31 Blood Culture - Preliminary Blood - Venous No growth after 48 hours. 01/10/24 21:07 Blood Culture - Preliminary Blood - Venous No growth after 48 hours. 01/10/24 20:56 Blood Culture - Preliminary Blood - Venous No growth after 48 hours. Imaging Chest x-ray: Radiologist's impression: ITS Impressions Foot X-Ray 01/10/24 23:09 IMPRESSION: 1. Soft tissue swelling at the heel without radiographic findings of osteomyelitis. 2. Old healed fractures of the first through fourth metatarsals. 3. 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 Ankle MRI 01/11/24 13:14 IMPRESSION: 1. Skin ulceration/defect at the plantar/lateral aspect of the heel pad with surrounding cellulitis. No abscess. No definite osteomyelitis. 2. Incompletely healed fracture at the base of the 1st metatarsal with persistent marrow edema. 3. Mild chronic Achilles tendinosis. 4. Ill-defined longitudinal partial tearing of the peroneal brevis tendon with mild tenosynovitis. Abdomen/Pelvis CT 01/12/24 21:24 IMPRESSION: Distended urinary bladder. Mild bilateral hydroureter. Mild left hydronephrosis and mild right renal fullness without lourdes hydronephrosis. Trace bilateral pleural fluid with mild associated dependent atelectasis and/or infiltrates. Anasarca. Moderate stool throughout the colon and rectal vault. Additional findings, as above. Discharge Plan Discharge Anticipated Discharge Date/Time: 01/15/24 11:38 Patient Disposition: Home Health Service Discharge Diagnosis: Left heel deep wound and ischar Referrals: [facility] [Outside] - 1 Week Claire Trujillo MD [Primary Care Provider] - 1 Week Discharge Medications: New ertapenem 1 gram recon soln 1 g IV Q24H Qty: 37 0RF Continued morphine 15 mg tablet extended release 15 mg PO Q12H atorvastatin 80 mg tablet 80 mg PO DAILY famotidine [Heartburn Relief (famotidine)] 10 mg tablet 10 mg PO BID metoprolol succinate 50 mg tablet extended release 24 hr 50 mg PO DAILY isosorbide mononitrate 30 mg tablet extended release 24 hr 30 mg PO DAILY midodrine 5 mg tablet 5 mg PO TID meclizine 12.5 mg tablet 12.5 mg PO TID PRN (Reason: dizziness) clopidogrel 75 mg tablet 75 mg PO DAILY aspirin 81 mg tablet,delayed release (DR/EC) 81 mg PO DAILY tamsulosin 0.4 mg capsule 0.8 mg PO DAILY nortriptyline 10 mg capsule 10 mg PO BEDTIME losartan 25 mg tablet 12.5 mg PO DAILY polyethylene glycol 3350 [Gavilax] 17 gram/dose powder 17 g PO DAILY ondansetron 4 mg tablet,disintegrating 4 mg PO Q8H PRN (Reason: nausea/vomiting) docusate sodium [Stool Softener] 100 mg tablet 100 mg PO BID PRN (Reason: constipation) finasteride 5 mg tablet 5 mg PO DAILY insulin lispro [Humalog KwikPen Insulin] 100 unit/mL insulin pen 1 sliding scale dose subcut TID insulin glargine [Lantus Solostar U-100 Insulin] 100 unit/mL (3 mL) insulin pen 23 unit subcut DAILY Jardiance 25 mg tablet 25 mg PO DAILY sennosides [senna] 8.6 mg tablet 17.2 mg PO DAILY oxycodone 10 mg tablet 10 mg PO Q6H PRN (Reason: pain) Qty: 20 0RF Discharge Orders: Discharge Order (Routine); Ordered 01/15/24 Ordered By: Trino Willard Diet: Diabetic diet Activity on Discharge: As tolerated Stand Alone Forms: Patient Portal Discharge page Print Language: Armenian Care Plan Goals: Continue Wound care IV Ertapenem to finish 6 weeks of antibiotics Use Midodrine as needed for low Blood pressure; monitor your blood pressure readings at home for 1 week and report readings to PCP for further adjustments in home medications Take Laxatives to avoid constipation Health Concerns: Read below Plan of Treatment: Read below Assessment: Read below Discharge Date/Time: 01/15/24 14:24
--- NOTE | 2024-01-15 11:55 | P.F2F_ITS ---
Service Date Service Date: 01/15/24 Encounter Date of encounter: 01/15/24 Reasons for Services Signs and symptoms assessed: Need of IV antibiotics Reason for [facility]: wound care, administration of IV, SQ, or IM injection and teach disease management Homebound: Leaving the home is medically contraindicated at this time without the asist of a device and/or another person due th the listed conditions above and below. Reason homebound: unsteady gait / fall risk Certification: Based on the above findings, I certify that this patient is confined to the home and needs intermittent [facility] care, physical therapy and/or speech therapy, or continues to need occupational therapy. The patient is under my care, and I have initiated the establishment of the plan of care. The patient will be followed by a physician who will periodically review the plan of care. Time Spent With Patient Time: Total time managing care of this patient today ____ minutes.
[2024-01-15 12:00] VITALS: BP 133/61; PULSE 95; RESP 16; TEMP 36.6; O2SAT 100
--- NOTE | 2024-01-15 12:29 | PM.PROC ---
Brief Operative Note Date of procedure: 01/15/24 Pre-op diagnosis: Thick necrotic eschar, left heel Post-op diagnosis: same Procedure: Sharp excisional debridement of thick necrotic eschar left heel, area debrided was 7 cm x 4 cm The left leg was lifted up to expose the entire left heel. Sharp excisional debridement using Finney scissors was used to debride full-thickness of the skin and subcutaneous fat down to viable tissue. Hemostasis was observed. Wet-to-dry dressings with normal saline was then applied and the foot was wrapped with Kerlix roll. He tolerated procedure well. There was minimal blood loss. Anesthesia: none Surgeon: All Gilmore Pathology: none sent Condition: stable
[2024-01-15 12:54] LABS: Vancomycin Random 12.2 mcg/mL (15-20)
--- NOTE | 2024-01-15 14:01 | MHC.CM.PN ---
IMM 01/15/24 Patient is discharged to home with LT IV ABX. [facility] have accepted the case. All dc info has been sent to the agencies. Family is providing transport home.
== END 2024-01-15 14:24 | disposition home health service (06) | DRG 264 ==
LOC: HO.ED 21:21 → HO.EDOVER 01-11 00:39 → HO.S3 01-11 01:00
PROVIDERS: Admitting Provider Internal Medicine; Emergency Provider Internal Medicine; PCP Internal Medicine; Visit Provider Student in an Organized Health Care Education/Training Program
DX: E11.52 Type 2 diabetes mellitus with diabetic peripheral angiopathy with gangrene (principal); F11.20 Opioid dependence, uncomplicated; L97.423 Non-pressure chronic ulcer of left heel and midfoot with necrosis of muscle; I10 Essential (primary) hypertension; E78.5 Hyperlipidemia, unspecified; G89.4 Chronic pain syndrome; R33.9 Retention of urine, unspecified; I95.9 Hypotension, unspecified; E86.0 Dehydration; I25.10 Atherosclerotic heart disease of native coronary artery without angina pectoris; T40.2X5A Adverse effect of other opioids, initial encounter; K59.03 Drug induced constipation; E11.621 Type 2 diabetes mellitus with foot ulcer; Z20.822 Contact with and (suspected) exposure to COVID-19; Z96.41 Presence of insulin pump (external) (internal); Z79.4 Long term (current) use of insulin; Z79.02 Long term (current) use of antithrombotics/antiplatelets; Z79.82 Long term (current) use of aspirin; Z79.899 Other long term (current) drug therapy
CPT/HCPCS: 0241U; 36415; 36573; 73620; 73723; 74177; 80048; 80053; 80202; 82565; 82947; 83036; 83605; 85025; 85027; 85610; 85652; 86140; 87040; 99285; A9585; C1758; J1335; J1644; J2270; J2405; J2543; J3370; J3371; J7120; P9047

== ENCOUNTER → 2024-01-11 00:34 | Outpatient (BNV) | payer OTHER, SELFPAY | PROVIDERS: Admitting Provider Internal Medicine; Emergency Provider Internal Medicine; Visit Provider Surgery Vascular Surgery | DX: L97.523 Non-pressure chronic ulcer of other part of left foot with necrosis of muscle (principal) | CPT/HCPCS: 99222 ==

== ENCOUNTER → 2024-01-11 00:34 | Outpatient (BNV) | payer OTHER, SELFPAY | PROVIDERS: Admitting Provider Internal Medicine; Emergency Provider Internal Medicine; Visit Provider Internal Medicine | DX: E11.621 Type 2 diabetes mellitus with foot ulcer (principal); R50.81 Fever presenting with conditions classified elsewhere | CPT/HCPCS: 99223; 99233; 99239; 99499; G0180 ==

== ENCOUNTER → 2024-01-11 00:34 | Outpatient (BNV) | payer OTHER, SELFPAY | PROVIDERS: Admitting Provider Internal Medicine; Emergency Provider Internal Medicine; Visit Provider Internal Medicine | DX: E11.621 Type 2 diabetes mellitus with foot ulcer (principal); L97.509 Non-pressure chronic ulcer of other part of unspecified foot with unspecified severity; R23.4 Changes in skin texture | CPT/HCPCS: 99222 ==

== ENCOUNTER → 2024-01-11 00:34 | Outpatient (BNV) | payer OTHER, SELFPAY | PROVIDERS: Admitting Provider Internal Medicine; Emergency Provider Internal Medicine; Visit Provider Physician Assistant Medical | DX: E11.621 Type 2 diabetes mellitus with foot ulcer (principal) | CPT/HCPCS: 99291 ==

== ENCOUNTER → 2024-01-11 00:34 | Outpatient (BNV) | payer OTHER, SELFPAY | PROVIDERS: Admitting Provider Internal Medicine; Emergency Provider Internal Medicine; Visit Provider Physician Assistant Surgical | DX: R23.4 Changes in skin texture (principal); E11.621 Type 2 diabetes mellitus with foot ulcer; L97.529 Non-pressure chronic ulcer of other part of left foot with unspecified severity | CPT/HCPCS: 97597; 99222; 99232 ==

== ENCOUNTER 2024-02-01 13:19 | Emergency (ER) | payer OTHER, SELFPAY ==
--- NOTE | ~2024-02-01 | CT_ITS ---
EXAMINATION: CT ANGIOGRAM OF THE CHEST WITH AND WITHOUT CONTRAST (CT PULMONARY ANGIOGRAM FOR PE) CLINICAL INFORMATION: Syncope, weakness, positive d-dimer COMPARISON: None available. TECHNIQUE: Prior to contrast administration, noncontrast localization images were obtained. Subsequently, multidetector volumetric imaging was performed from the thoracic inlet to below the diaphragms following the administration of 65 mL Omnipaque 350 intravenous contrast. No contrast reaction reported Sagittal, coronal, and MIP oblique sagittal reformatted images were obtained on the CT workstation, uploaded to PACS, and reviewed. This CT examination was performed using dose optimization techniques as appropriate, variously including the following: *Automated exposure control *Adjustment of mA and/or kV according to patient size (this includes techniques or standardized protocols for targeted exams where dose is matched to indication/reason for exam; i.e. extremities or head) *Use of iterative reconstruction technique Total exam dose-length product 431 mGy-cm FINDINGS: QUALITY OF STUDY/CONTRAST BOLUS: Satisfactory. PULMONARY ARTERIES: No pulmonary emboli. THORACIC AORTA: No aneurysm. LUNG: There is no abnormality the trachea or mainstem bronchi. No dense consolidation or edema. PLEURA: No pleural effusion or pneumothorax. MEDIASTINUM: Normal heart size. No pericardial effusion. No hilar or mediastinal lymphadenopathy. Slight distention of the lower esophagus. Minor stranding in the left brachiocephalic and left subclavian regions. No evidence of septal bowing or right heart strain. CORONARY ARTERY CALCIFICATION: There is moderate coronary calcification. CHEST WALL/AXILLA: No axillary or internal mammary lymphadenopathy. There is a left PICC present. OSSEOUS STRUCTURES: No acute or suspicious osseous abnormality. UPPER ABDOMEN: The gallbladder is distended. There may be some gallbladder wall thickening. No reflux of contrast into the hepatic veins to suggest elevated right heart pressures. CT/CT angio chest PE protocol IMPRESSION: No pulmonary embolus demonstrated. No pneumonia or edema. VTE: negative
[2024-02-01 13:26] VITALS: BP 114/74; PULSE 76; O2SAT 99
[2024-02-01 13:29] VITALS: BP 116/48; PULSE 77; RESP 18; TEMP 37; O2SAT 99; BMI 27.3
--- NOTE | 2024-02-01 13:50 | ED.GENADULT ---
HPI - General Adult General Chief complaint: Syncope Stated complaint: SYNCOPAL EPISODE Time Seen by Provider: 02/01/24 13:48 History of Present Illness ED Provider: Guille LEMUS narrative: The patient is a 63-year-old male who comes to the hospital by ambulance from home. The patient has been receiving IV antibiotics at home. He was hospitalized at the end of last month for an infection in his left heel. He was discharged on January 14 (17 days ago) with a PICC line in his left arm and a plan to receive 1 g of IV ertapenem through the PICC line daily for 6 weeks. The patient is still receiving this medication and is due to receive it for another few weeks. The patient says that over the last few days he has felt dizzy and today he apparently fainted. He says that he is living with the mother of his children and that his son is his [employer]IOR [employer]. He says that his S[employer]IOR [employer]OUNT[employer] caught him when he fainted so that he did not get significantly injured in any way. No recent fever. Related Data Home Medications ?Medication ?Instructions ?Recorded ?Confirmed aspirin 81 mg tablet,delayed 81 mg PO DAILY 01/11/24 01/11/24 release atorvastatin 80 mg tablet 80 mg PO DAILY 01/11/24 01/11/24 clopidogrel 75 mg tablet 75 mg PO DAILY 01/11/24 01/11/24 docusate sodium 100 mg tablet 100 mg PO BID PRN constipation 01/11/24 01/11/24 (Stool Softener) empagliflozin 25 mg tablet 25 mg PO DAILY 01/11/24 01/11/24 (Jardiance) famotidine 10 mg tablet (Heartburn 10 mg PO BID 01/11/24 01/11/24 Relief (famotidine)) finasteride 5 mg tablet 5 mg PO DAILY 01/11/24 01/11/24 insulin glargine 100 unit/mL (3 23 unit subcut DAILY 01/11/24 01/11/24 mL) subcutaneous pen (Lantus Solostar U-100 Insulin) insulin lispro 100 unit/mL 1 sliding scale dose subcut TID 01/11/24 01/11/24 subcutaneous pen (Humalog KwikPen (U-100) Insulin) isosorbide mononitrate 30 mg 30 mg PO DAILY 01/11/24 01/11/24 tablet,extended release 24 hr losartan 25 mg tablet 12.5 mg PO DAILY 01/11/24 01/11/24 meclizine 12.5 mg tablet 12.5 mg PO TID PRN dizziness 01/11/24 01/11/24 metoprolol succinate 50 mg 50 mg PO DAILY 01/11/24 01/11/24 tablet,extended release 24 hr midodrine 5 mg tablet 5 mg PO TID 01/11/24 01/11/24 morphine 15 mg tablet,extended 15 mg PO Q12H 01/11/24 01/11/24 release nortriptyline 10 mg capsule 10 mg PO BEDTIME 01/11/24 01/11/24 ondansetron 4 mg disintegrating 4 mg PO Q8H PRN nausea/vomiting 01/11/24 01/11/24 tablet polyethylene glycol 3350 17 17 g PO DAILY 01/11/24 01/11/24 gram/dose oral powder (Gavilax) sennosides 8.6 mg tablet (senna) 17.2 mg PO DAILY 01/11/24 01/11/24 tamsulosin 0.4 mg capsule 0.8 mg PO DAILY 01/11/24 01/11/24 Previous Rx's ?Medication ?Instructions ?Recorded ertapenem 1 gram solution for 1 g IV Q24H #37 ea 01/15/24 injection oxycodone 10 mg tablet 10 mg PO Q6H PRN pain #20 tabs 01/15/24 Allergies Allergy/AdvReac Type Severity Reaction Status Date / Time metformin [Metformin] Allergy Mild ? Verified 02/01/24 13:33 INTOLERANCE Review of Systems Review of Systems: Yes all other systems are reviewed and are negative [facility], [facility] Past Medical History Medical History Heart attack Hypercholesterolemia HTN (hypertension) Diabetes Social History Social History Household Members: None Housing: Apartment Patient Tobacco Use Status: Never used Tobacco Smoked in Last 30 Days: No Use of substances other than those prescribed or required for medical reasons: No Advance Directives: Yes Advance Directives on File: Yes Advance Directives Date on File: 01/18/24 service: No Physical Exam ED Vital Signs: Vital Signs - 24 hr 02/01/24 13:29 02/01/24 16:09 02/01/24 19:38 Temperature 98.6 F 98.8 F 98.2 F Pulse Rate 77 77 82 Respiratory Rate 18 13 16 Blood Pressure 116/48 L 121/58 L 114/52 L Pulse Oximetry 99 99 99 Oxygen Delivery Method Room Air Room Air Room Air BMI result Body Mass Index 27.3 Const Other: The patient is a chronically ill-appearing 63-year-old male who looks pale and weak. He does not seem in acute pain or respiratory distress. HENMT Other: Face is symmetrical. Mucous membranes may be slightly dry. Eyes Other: Pupils are round equal, conjunctivae are clear Neck Other: No definite JVD. No nuchal rigidity. Resp Effort & Inspection: normal respiratory effort Auscultation: clear to auscultation bilaterally Cardio Rate: regular rate Rhythm: regular rhythm Heart sounds: S1 normal heart sound present and S2 normal heart sound present GI Other: Abdomen is soft and nontender Skin Other: Skin is pale and dry. Neuro Other: The patient seemed tired and preferred to have his eyes closed but was arousable to verbal stimuli. He is not seem confused. Face is symmetrical. Eye movements are intact. Speech is clear. He has intact and symmetrical strength in his extremities. No definite neurological deficit. Extrem Other: No calf swelling or tenderness Medications Administered Discontinued Medications Generic Name Dose Route Start Last Admin Trade Name Freq PRN Reason Stop Dose Admin Sodium Chloride 1,000 mls @ 999 mls/hr 02/01/24 15:00 02/01/24 17:19 Ns IV 02/01/24 16:00 Infused .Q1H1M TANYA Infusion Iohexol 100 ml 02/01/24 16:32 02/01/24 16:33 Iohexol 350 Mg/Ml 100 Ml Infus..Btl IV 02/01/24 16:33 65 ml ONCE ONE Administration Medical Decision Making Medical Decision Making MDM Narrative: The patient is a 63-year-old male currently receiving ertapenem for treatment of a left heel infection. The patient had some kind of an episode at home this morning which may have been a syncopal episode. The son describes the patient possibly having seizure-like movements but the son does not describe any postictal phase. Apparently paramedics arrived soon after and the patient had a blood sugar of about 200. Patient's vital signs are unremarkable. I do not think he is having any complication of his infection or any worsening infection. Given that the patient has been relatively bed ridden recently and given that he might have had a syncopal episode this morning I checked a D-dimer which was positive. A CT pulmonary angiogram was therefore done. This was negative. Other labs unremarkable. Troponins are flat. EKG unremarkable. The patient was given IV fluids and he seemed to perk up somewhat. Perhaps he was mildly dehydrated. He ate a meal in the emergency room and he seemed very interested in the food. Ultimately I felt that he was appropriate for discharge. Lab Data 02/01/24 14:30 02/01/24 14:30 Labs: Lab Results 02/01/24 02/01/24 02/01/24 Range/Units 14:30 14:31 17:33 WBC 7.7 (4.8-10.8) X10*3/uL RBC 4.28 L (4.60-5.80) X10*6/uL Hgb 12.1 L (14.0-18.0) g/dl Hct 36.6 L (42.0-52.0) % MCV 85.5 (80.0-98.0) fL MCH 28.3 (27.0-33.0) pg MCHC 33.1 (31.0-36.0) g/dl RDW 12.8 (11.0-16.0) % Plt Count 236 (160-400) X10*3/uL MPV 10.8 (9.4-12.4) fL Immature Gran % (Auto) 0.3 (0.0-0.4) % Neut % (Auto) 80.0 H (45-73) % Lymph % (Auto) 11.3 L (20-40) % [place] % (Auto) 6.0 (2-11) % Eos % (Auto) 2.1 (0-4) % Baso % (Auto) 0.3 (0-2) % Lymph # (Auto) 0.9 L (1.2-4.9) X10*3/uL [place] # (Auto) 0.5 (0.1-1.2) X10*3/uL Eos # (Auto) 0.2 (0.0-0.4) X10*3/uL Baso # (Auto) 0.0 (0.0-0.2) X10*3/uL Abs Immat Gran (auto) 0.02 (0.00-0.03) X10*3/uL Absolute Neuts (auto) 6.2 (2.0-8.3) x10*3/uL Absolute Nucleated RBC 0.000 (0.0-0.012) X10*3/uL Nucleated RBC % (auto) 0.0 (0.0-0.2) /100WBC PT 12.4 (11.1-13.3) SEC INR 1.0 (0.9-1.1) D-Dimer High Sensitivty 1498 NG/ML VBG pH 7.39 (7.32-7.43) VBG pCO2 55 mmHg VBG pO2 33 mmHg VBG HCO3 33 H (22-26) mmol/L VBG O2 Saturation 53.0 % VBG Base Excess 7.3 mmol/L Sodium 138 (135-145) mmol/L Potassium 4.5 D (3.3-5.1) mmol/L Chloride 98 (96-108) mmol/L Carbon Dioxide 32 H (22-29) mmol/L Anion Gap 13 (12-20) BUN 13 (9-16) mg/dL Creatinine 0.87 (0.5-1.4) mg/dL Estim Creat Clear Calc 79.8 Estimated GFR > 60 Random Glucose 180 H (60-115) mg/dL Calcium 9.2 D (8.4-10.2) mg/dL Magnesium 2.2 (1.6-2.6) mg/dL Total Bilirubin 0.8 (0.0-1.0) mg/dL Direct Bilirubin 0.3 (0.0-0.5) mg/dL AST 15 (5-37) U/L ALT 13 (0-40) U/L Alkaline Phosphatase 127 H (39-117) U/L Troponin I High Sens 8.8 D (<3.5-35.0) ng/L C-Reactive Protein 1.86 H (< or = 0.50) mg/dL B-Natriuretic Peptide 84 (<100) pg/mL Total Protein 7.0 (6.5-8.0) g/dL Albumin 3.6 (3.5-5.0) g/dL Lipase 12 (8-78) U/L Urine Color Yellow Urine Appearance Clear Urine pH 7.5 (5.0-9.0) Ur Specific [place] >= 1.030 H (1.005-1.025) Urine Protein Trace (Neg-Trace) mg/dL Urine Glucose (UA) >=1000 H (Negative) mg/dL Urine Ketones Negative (Negative) mg/dL Urine Blood Negative (Negative) Urine Nitrite Negative (Negative) Ur Leukocyte Esterase Negative (Negative) Urine RBC 0-2 (0-2) /HPF Urine WBC 0-5 (0-5) /HPF Ur Squamous Epith Cells 0-2 (0-2) /HPF Urine Bacteria None Seen (None Seen) Hyaline Casts 0-2 (0-2) /LPF Urine Opiates Screen POSITIVE H (Not Detect) Ur Buprenorphine Scrn Not Detected (Not Detect) ng/mL Ur Oxycodone Screen Not Detected (Not Detect) ng/mL Urine Methadone Screen Not Detected (Not Detect) ng/mL Urine Fentanyl Screen Not Detected (Not Detect) Ur Barbiturates Screen Not Detected (Not Detect) Ur Phencyclidine Scrn Not Detected (Not Detect) Ur Amphetamines Screen Not Detected (Not Detect) U Benzodiazepines Scrn Not Detected (Not Detect) Urine Cocaine Screen Not Detected (Not Detect) U Marijuana (THC) Screen Not Detected (Not Detect) Ethyl Alcohol < 10 mg/dL Influenza Type A (PCR) NEGATIVE (Negative) Influenza Type B (PCR) NEGATIVE (Negative) RSV RNA Qual (PCR) NEGATIVE (Negative) SARS-CoV-2 RNA (RT-PCR) NEGATIVE (Negative) 02/01/24 Range/Units 17:47 WBC (4.8-10.8) X10*3/uL RBC (4.60-5.80) X10*6/uL Hgb (14.0-18.0) g/dl Hct (42.0-52.0) % MCV (80.0-98.0) fL MCH (27.0-33.0) pg MCHC (31.0-36.0) g/dl RDW (11.0-16.0) % Plt Count (160-400) X10*3/uL MPV (9.4-12.4) fL Immature Gran % (Auto) (0.0-0.4) % Neut % (Auto) (45-73) % Lymph % (Auto) (20-40) % [place] % (Auto) (2-11) % Eos % (Auto) (0-4) % Baso % (Auto) (0-2) % Lymph # (Auto) (1.2-4.9) X10*3/uL [place] # (Auto) (0.1-1.2) X10*3/uL Eos # (Auto) (0.0-0.4) X10*3/uL Baso # (Auto) (0.0-0.2) X10*3/uL Abs Immat Gran (auto) (0.00-0.03) X10*3/uL Absolute Neuts (auto) (2.0-8.3) x10*3/uL Absolute Nucleated RBC (0.0-0.012) X10*3/uL Nucleated RBC % (auto) (0.0-0.2) /100WBC PT (11.1-13.3) SEC INR (0.9-1.1) D-Dimer High Sensitivty NG/ML VBG pH (7.32-7.43) VBG pCO2 mmHg VBG pO2 mmHg VBG HCO3 (22-26) mmol/L VBG O2 Saturation % VBG Base Excess mmol/L Sodium (135-145) mmol/L Potassium (3.3-5.1) mmol/L Chloride (96-108) mmol/L Carbon Dioxide (22-29) mmol/L Anion Gap (12-20) BUN (9-16) mg/dL Creatinine (0.5-1.4) mg/dL Estim Creat Clear Calc Estimated GFR Random Glucose (60-115) mg/dL Calcium (8.4-10.2) mg/dL Magnesium (1.6-2.6) mg/dL Total Bilirubin (0.0-1.0) mg/dL Direct Bilirubin (0.0-0.5) mg/dL AST (5-37) U/L ALT (0-40) U/L Alkaline Phosphatase (39-117) U/L Troponin I High Sens 8.4 (<3.5-35.0) ng/L C-Reactive Protein (< or = 0.50) mg/dL B-Natriuretic Peptide (<100) pg/mL Total Protein (6.5-8.0) g/dL Albumin (3.5-5.0) g/dL Lipase (8-78) U/L Urine Color Urine Appearance Urine pH (5.0-9.0) Ur Specific [place] (1.005-1.025) Urine Protein (Neg-Trace) mg/dL Urine Glucose (UA) (Negative) mg/dL Urine Ketones (Negative) mg/dL Urine Blood (Negative) Urine Nitrite (Negative) Ur Leukocyte Esterase (Negative) Urine RBC (0-2) /HPF Urine WBC (0-5) /HPF Ur Squamous Epith Cells (0-2) /HPF Urine Bacteria (None Seen) Hyaline Casts (0-2) /LPF Urine Opiates Screen (Not Detect) Ur Buprenorphine Scrn (Not Detect) ng/mL Ur Oxycodone Screen (Not Detect) ng/mL Urine Methadone Screen (Not Detect) ng/mL Urine Fentanyl Screen (Not Detect) Ur Barbiturates Screen (Not Detect) Ur Phencyclidine Scrn (Not Detect) Ur Amphetamines Screen (Not Detect) U Benzodiazepines Scrn (Not Detect) Urine Cocaine Screen (Not Detect) U Marijuana (THC) Screen (Not Detect) Ethyl Alcohol mg/dL Influenza Type A (PCR) (Negative) Influenza Type B (PCR) (Negative) RSV RNA Qual (PCR) (Negative) SARS-CoV-2 RNA (RT-PCR) (Negative) Independent Interpretation I performed an independent interpretation of an: EKG Interpretation: EKG at 1406 shows normal sinus rhythm at 73 beats per minute. There is a pulmonary disease pattern and a left anterior fascicular block. Overall no definite acute changes when compared with previous EKGs Discharge Plan Discharge Clinical Impression: Episode of syncope Patient Disposition: Home, Self-Care Additional Instructions: Your testing in the emergency department today is very reassuring. We are not finding any dangerous process at work. Please make sure you eat well and take a lot of fluids. Continue your antibiotics and your other regular medications. Please follow up soon with your regular doctor. Return to the emergency room if significantly worse..................................................................................................................................................................................................................................................... .......................................................................................................................................................................................................................................................... ........................................................................................................................... Prescriptions: No Action morphine 15 mg tablet extended release 15 mg PO Q12H atorvastatin 80 mg tablet 80 mg PO DAILY famotidine [Heartburn Relief (famotidine)] 10 mg tablet 10 mg PO BID metoprolol succinate 50 mg tablet extended release 24 hr 50 mg PO DAILY isosorbide mononitrate 30 mg tablet extended release 24 hr 30 mg PO DAILY midodrine 5 mg tablet 5 mg PO TID meclizine 12.5 mg tablet 12.5 mg PO TID PRN (Reason: dizziness) clopidogrel 75 mg tablet 75 mg PO DAILY aspirin 81 mg tablet,delayed release (DR/EC) 81 mg PO DAILY tamsulosin 0.4 mg capsule 0.8 mg PO DAILY nortriptyline 10 mg capsule 10 mg PO BEDTIME losartan 25 mg tablet 12.5 mg PO DAILY polyethylene glycol 3350 [Gavilax] 17 gram/dose powder 17 g PO DAILY ondansetron 4 mg tablet,disintegrating 4 mg PO Q8H PRN (Reason: nausea/vomiting) docusate sodium [Stool Softener] 100 mg tablet 100 mg PO BID PRN (Reason: constipation) finasteride 5 mg tablet 5 mg PO DAILY insulin lispro [Humalog KwikPen Insulin] 100 unit/mL insulin pen 1 sliding scale dose subcut TID insulin glargine [Lantus Solostar U-100 Insulin] 100 unit/mL (3 mL) insulin pen 23 unit subcut DAILY Jardiance 25 mg tablet 25 mg PO DAILY sennosides [senna] 8.6 mg tablet 17.2 mg PO DAILY ertapenem 1 gram recon soln 1 g IV Q24H Qty: 37 0RF oxycodone 10 mg tablet 10 mg PO Q6H PRN (Reason: pain) Qty: 20 0RF Interventions: ED Discharge Assessment Last Done: 02/01/24 19:38 Discharge Date/Time: 02/01/24 19:39 Print Language: Persian
--- NOTE | 2024-02-01 13:53 | ECG_ITS ---
Test Reason : syncope Blood Pressure : / mmHG Vent. Rate : 073 BPM Atrial Rate : 073 BPM P-R Int : 146 ms QRS Dur : 078 ms QT Int : 376 ms P-R-T Axes : 005 -64 118 degrees QTc Int : 414 ms Normal sinus rhythm Pulmonary disease pattern Left anterior fascicular block Septal infarct (cited on or before 12-SEP-2019) T wave abnormality, consider lateral ischemia Abnormal ECG When compared with ECG of 22-MAR-2023 18:17, No significant change was found Referred By: Alex Han Electronically Signed By:BROWN LOJA MD
--- NOTE | 2024-02-01 14:16 | PC.NURSE ---
Presents to ED via EMS from home, per EMS family reports pt had syncopal episode while sitting in bed, witnessed. No fall or head hit, pt had LOC for approx 2 mins, family called for 911. EMS found pt to be hypotensive, gave him 150 mL NS and BP stabilized. Pt currently has septic wound on left foot, being treated with IV ABX at home 3X day by visiting nurses through PICC line on left arm. Pt alert and oriented, breathing even and unlabored, skin pale. Reports dizziness and right arm pain 10/10.
[2024-02-01 14:35] LABS: MANUAL DIFF FLAG NO
[2024-02-01 14:36] LABS: Basophils Percent Auto 0.3 % (0-2); Eosinophils Absolute Auto 0.2 X10*3/uL (0.0-0.4); Eosinophils Percent Auto 2.1 % (0-4); Hematocrit 36.6 % (42.0-52.0); Hemoglobin 12.1 g/dl (14.0-18.0); Imm Gran Abs Auto 0.02 X10*3/uL (0.00-0.03); Imm Gran Pct Auto 0.3 % (0.0-0.4); Lymphocytes Absolute Auto 0.9 X10*3/uL (1.2-4.9); Lymphocytes Percent Auto 11.3 % (20-40); Mean Corpuscular HGB Conc 33.1 g/dl (31.0-36.0); Mean Corpuscular Hemoglobin 28.3 pg (27.0-33.0); Mean Corpuscular Volume 85.5 fL (80.0-98.0); Mean Platelet Volume 10.8 fL (9.4-12.4); Monocytes Absolute Auto 0.5 X10*3/uL (0.1-1.2); Neutrophils Absolute Auto 6.2 x10*3/uL (2.0-8.3); Platelet Count 236 X10*3/uL (160-400); Red Blood Count 4.28 X10*6/uL (4.60-5.80); Red Cell Distribution Width 12.8 % (11.0-16.0); White Blood Count 7.7 X10*3/uL (4.8-10.8)
[2024-02-01 14:39] LABS: Venous Blood Gas Refer to POC result
[2024-02-01 14:39] LABS: VBG Base Excess 7.3 mmol/L; VBG HCO3 33 mmol/L (22-26); VBG pCO2 55 mmHg; VBG pH 7.39 (7.32-7.43); VBG pO2 33 mmHg
[2024-02-01 14:42] LABS: Prothrombin Time 12.4 SEC (11.1-13.3)
[2024-02-01 15:04] LABS: Sodium 138 mmol/L (135-145)
[2024-02-01 15:05] LABS: Alanine Aminotransferase 13 U/L (0-40); Anion Gap 13 (12-20); Aspartate Amino Transferase 15 U/L (5-37); Bilirubin Direct 0.3 mg/dL (0.0-0.5); Bilirubin Total 0.8 mg/dL (0.0-1.0); Blood Urea Nitrogen 13 mg/dL (9-16); C Reactive Protein 1.86 mg/dL (< or = 0.50); Calcium 9.2 mg/dL (8.4-10.2); Carbon Dioxide 32 mmol/L (22-29); Chloride 98 mmol/L (96-108); Creatinine Clr Calc Pharmacy 79.8; Estimated Glomerular Filt Rate > 60; Glucose Random 180 mg/dL (60-115); Magnesium 2.2 mg/dL (1.6-2.6); Potassium 4.5 mmol/L (3.3-5.1)
[2024-02-01 15:06] LABS: Albumin Level 3.6 g/dL (3.5-5.0); Alkaline Phosphatase 127 U/L (39-117)
[2024-02-01 15:07] LABS: Troponin-I High Sensitivity 8.8 ng/L (<3.5-35.0)
[2024-02-01 15:16] LABS: Influenza A PCR NEGATIVE (Negative); Influenza B PCR NEGATIVE (Negative); Resp Syncy Virus RNA Qual PCR NEGATIVE (Negative); SARS COV2 PCR INHOUSE NEGATIVE (Negative)
[2024-02-01] MEDS: 0.9 % Sodium Chloride 1,000 ML 999 ML IV (15:16)
[2024-02-01 15:19] LABS: B Type Natriuretic Peptide 84 pg/mL (<100)
[2024-02-01 15:32] LABS: Lipase 12 U/L (8-78)
[2024-02-01 15:38] LABS: D Dimer High Sensitivity 1498 NG/ML
[2024-02-01 15:42] LABS: Ethanol < 10 mg/dL
[2024-02-01 16:09] VITALS: BP 121/58; PULSE 77; RESP 13; TEMP 37.1; O2SAT 99
[2024-02-01] MEDS: iohexoL 350 MG/ML 100 ML INFUS..BTL IV (16:33)
[2024-02-01 17:50] LABS: Amphetamine Screen Urine Not Detected (Not Detect); Barbiturates, Urine Not Detected (Not Detect); Benzodiazepines Screen Urine Not Detected (Not Detect); Buprenorphine Scr Not Detected (Not Detect); Cannabinoid Screen Urine Not Detected (Not Detect); Cocaine Screen Urine Not Detected (Not Detect); Fentanyl, urine Not Detected (Not Detect); Methadone Screen, Urine Not Detected (Not Detect); Opiate Screen Urine POSITIVE (Not Detect); Oxycodone Screen Urine Not Detected (Not Detect); Phencyclidine Screen Urine Not Detected (Not Detect)
[2024-02-01 17:52] LABS: Appearance Urine Clear; Color Urine Yellow; Glucose Urine UA >=1000 mg/dL (Negative); Leukocyte Esterase Urine Negative (Negative); Nitrite Urine Negative (Negative); PH 7.5 (5.0-9.0); Specific Gravity - Urine >= 1.030 (1.005-1.025); UMIC TRIGGER UACC YES; Urine Blood Negative (Negative); Urine Ketones Negative (Negative); Urine Protein Trace mg/dL (Neg-Trace)
--- NOTE | 2024-02-01 17:58 | PC.NURSE ---
[facility] # [phone]
[2024-02-01 18:28] LABS: Troponin-I High Sensitivity 8.4 ng/L (<3.5-35.0)
[2024-02-01 19:10] LABS: Bacteria Urine None Seen (None Seen); Hyaline Casts Urine 0-2 /LPF (0-2); RBC Urine 0-2 /HPF (0-2); Squamous Epithelial Cell Urine 0-2 /HPF (0-2); WBC Urine 0-5 /HPF (0-5)
[2024-02-01 19:38] VITALS: BP 114/52; PULSE 82; RESP 16; TEMP 36.8; O2SAT 99
== END 2024-02-01 19:39 | disposition home or self-care (01) ==
PROVIDERS: Emergency Provider Emergency Medicine; PCP Internal Medicine
DX: R55 Syncope and collapse (principal); R53.1 Weakness; R42 Dizziness and giddiness; L08.9 Local infection of the skin and subcutaneous tissue, unspecified; Z95.828 Presence of other vascular implants and grafts; Z79.2 Long term (current) use of antibiotics; E11.9 Type 2 diabetes mellitus without complications; I10 Essential (primary) hypertension; E78.00 Pure hypercholesterolemia, unspecified; Z79.82 Long term (current) use of aspirin; Z79.02 Long term (current) use of antithrombotics/antiplatelets; Z79.899 Other long term (current) drug therapy; Z79.4 Long term (current) use of insulin; Z03.818 Encounter for observation for suspected exposure to other biological agents ruled out
CPT/HCPCS: 0241U; 36415; 71275; 80048; 80076; 80307; 81001; 82803; 83690; 83735; 83880; 84484; 85025; 85379; 85610; 86140; 93005; 96360; 96361; 99284; 99285; Q9967

== ENCOUNTER → 2024-02-01 13:53 | Outpatient (BNV) | payer OTHER, SELFPAY | PROVIDERS: Emergency Provider Emergency Medicine; PCP Internal Medicine; Visit Provider Internal Medicine Cardiovascular Disease | DX: I44.4 Left anterior fascicular block (principal) | CPT/HCPCS: 93010 ==

== ENCOUNTER 2025-01-23 16:38 | Emergency (ER) | payer OTHER, SELFPAY ==
--- NOTE | ~2025-01-23 | XR_ITS ---
CLINICAL HISTORY: fall 4 view right shoulder Comparison: None provided Findings: Bones intact. No dislocations. 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 No erosions. No radiopaque foreign body. IMPRESSION: 1. No acute findings This document has been electronically signed by: Srikanth Blunt MD on 01/23/2025 20:18:39
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
--- NOTE | ~2025-01-23 | CT_ITS ---
CLINICAL HISTORY: fall CT head without contrast Comparison: CT/SR - CT HEAD/BRAIN WO IV CON - 03/22/23 20:18 EDT Findings: Scattered subcortical and periventricular hypoattenuation, likely in keeping with chronic small vessel ischemic disease. Parenchymal volume loss with compensatory prominence of the ventricles and CSF spaces. No acute territorial infarction, intracranial hemorrhage, midline shift or hydrocephalus. Mineralization in the basal ganglia noted. Mucosal thickening throughout the paranasal sinuses. Diffuse bilateral periorbital soft tissue swelling as well swelling along the forehead. Diffuse scalp edema. There is no acute fracture. Bilateral lens extraction. IMPRESSION: 1. No acute intracranial abnormality. 2. Additional findings as described. This document has been electronically signed by: Srikanth Blunt MD on 01/23/2025 18:46:15
--- NOTE | ~2025-01-23 | CT_ITS ---
CLINICAL HISTORY: fall CT cervical spine without contrast Comparison: None provided Findings: Exaggeration of the cervical lordosis Multilevel spondylosis with osteophytosis, uncovertebral hypertrophy, facet arthropathy and degenerative disc disease. Diffuse spinal canal narrowing, for example moderate to severe at C4-C5 with severe left foraminal stenoses. Osteopenia. No acute fracture. No cervical fluid collections or masses. Tiny 2 mm nodules in the left lung. Per Fleischner criteria: Low-risk patients: No routine follow-up required. High-risk patients: Optional CT at 12 months. IMPRESSION: No acute findings. Additional findings as described. This document has been electronically signed by: Srikanth Blunt MD on 01/23/2025 18:35:17
--- NOTE | ~2025-01-23 | XR_ITS ---
CLINICAL HISTORY: fall 3 view right forearm Comparison: None provided Findings: No acute fractures. Cortical thickening along the radial shaft, nonspecific. No joint effusion. No erosions. No radiopaque foreign body. Diffuse soft tissue swelling. Vascular calcifications. IMPRESSION: No acute fracture. This document has been electronically signed by: Srikanth Blunt MD on 01/23/2025 18:44:06
[2025-01-23 16:51] VITALS: BP 152/80; BP 172/70; PULSE 75; PULSE 84; RESP 18; O2SAT 100; O2SAT 98; BMI 25.8
[2025-01-23 17:03] LABS: Glucose, Whole Blood 369 mg/dL (60-115)
[2025-01-23 17:42] LABS: MANUAL DIFF FLAG NO
[2025-01-23 17:45] LABS: Hematocrit 43.3 % (42.0-52.0); Hemoglobin 15.1 g/dl (14.0-18.0); Imm Gran Abs Auto 0.01 X10*3/uL (0.00-0.03); Imm Gran Pct Auto 0.2 % (0.0-0.4); Lymphocytes Absolute Auto 1.4 X10*3/uL (1.2-4.9); Mean Corpuscular HGB Conc 34.9 g/dl (31.0-36.0); Mean Corpuscular Hemoglobin 29.3 pg (27.0-33.0); Mean Corpuscular Volume 84.1 fL (80.0-98.0); NRBC Abs Auto 0.000 X10*3/uL (0.0-0.012); NRBC Pct Auto 0.0 /100WBC (0.0-0.2); Platelet Count 121 X10*3/uL (160-400); Red Blood Count 5.15 X10*6/uL (4.60-5.80); White Blood Count 4.7 X10*3/uL (4.8-10.8)
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
--- OUTSIDE RECORDS SUMMARY | 2025-01-23 18:03 | XMS_ITS | Clinical Summary ---
Author Organization [facility] Address [address] [place] [address] Care Team Providers Care Director Consumer Name Role Phone Claire Trujillo MD Primary Care Provider + [phone] Social History Tobacco Use Types Packs/Day Years Used Date Smoking Tobacco: Never Assessed Sex and Gender Information Value Date Recorded Sex Assigned at Male 02/03/2024 10:08 AM EDT Legal Sex Male 12:21 PM EDT Gender Identity Male 02/03/2024 10:08 AM EDT Sexual Orientation Heterosexual (straight) 02/02 10:08 AM EDT Plan of Treatment Health Maintenance Due Date Last Done Comments Hepatitis C Virus Screening 1960 DTaP/Tdap/Td Vaccines (1 - Tdap) 1977 Pneumococcal Vaccines 50+ (1 of 1 - PCV) 2008 Zoster (Shingles) Vaccine (1 of 2) 2008 COVID-19 Vaccine ( season) 2024 03/03/2022, 08/27/2021, 11/09/2020, Additional history exists RSV Vaccine 60 years and older and Patients (1 - 1-dose 75+ series) 2033 Influenza Vaccine Discontinued 04/20/2020, , 06/22/2016, Additional history exists Hepatitis B Vaccines Aged Out No long er eligible based on patient's age to complete this topic Care Teams Director Consumer Relationship Specialty Start Date End Date Claire Trujillo MD [address], [place] [phone] PCP - General 01/19/24
[2025-01-23 18:12] LABS: Alanine Aminotransferase 32 U/L (0-40); Albumin Level 3.9 g/dL (3.5-5.0); Alkaline Phosphatase 142 U/L (39-117); Anion Gap 9 (12-20); Aspartate Amino Transferase 23 U/L (5-37); Blood Urea Nitrogen 20 mg/dL (9-16); Calcium 9.0 mg/dL (8.4-10.2); Carbon Dioxide 34 mmol/L (22-29); Chloride 101 mmol/L (96-108); Creatinine Clr Calc Pharmacy 67.6; Estimated Glomerular Filt Rate > 60; Potassium 4.6 mmol/L (3.3-5.1); Sodium 139 mmol/L (135-145); Total Protein 6.6 g/dL (6.5-8.0)
[2025-01-23 19:24] LABS: Glucose, Whole Blood 277 mg/dL (60-115)
--- NOTE | 2025-01-23 20:30 | PC.NURSE ---
Pt c/o of increased pain. Provider made aware and ordered per MAR
[2025-01-23 20:58] VITALS: BP 172/75; PULSE 73; RESP 16; TEMP 36.8; O2SAT 99
[2025-01-23 22:55] VITALS: BP 172/75; PULSE 73; RESP 16; TEMP 36.8; O2SAT 99
== END 2025-01-23 22:56 | disposition home or self-care (01) ==
PROVIDERS: Physician Assistant; Emergency Provider Emergency Medicine
DX: Z04.1 Encounter for examination and observation following transport accident (principal); R51.9 Headache, unspecified; M79.601 Pain in right arm; E11.9 Type 2 diabetes mellitus without complications; I10 Essential (primary) hypertension; E78.5 Hyperlipidemia, unspecified; Z79.82 Long term (current) use of aspirin; Z79.02 Long term (current) use of antithrombotics/antiplatelets; Z79.899 Other long term (current) drug therapy
CPT/HCPCS: 36415; 70450; 71250; 72125; 73030; 73090; 74176; 80053; 82010; 82947; 85025; 96361; 96374; 99284; 99285; J1885

== ENCOUNTER → 2025-01-23 17:01 | Outpatient (BNV) | payer OTHER, SELFPAY | PROVIDERS: Emergency Provider Emergency Medicine; Visit Provider Radiology Diagnostic Radiology | DX: S09.90XA Unspecified injury of head, initial encounter (principal); M79.601 Pain in right arm; V00.141A Fall from scooter (nonmotorized), initial encounter | CPT/HCPCS: 70450; 72125; 73030; 73090; 74176 ==

== ENCOUNTER 2025-06-07 17:01 | Emergency (ER) | payer OTHER, SELFPAY ==
--- NOTE | ~2025-06-07 | CT_ITS ---
CLINICAL HISTORY: fall , trauma, R eyebrow hematoma CT head without contrast Comparison: CT/SR - CT HEAD/BRAIN WO IV CON - 01/23/2025 05:06 PM EDT ,CT/SR - CT HEAD/BRAIN WO IV CON - 03/22/23 20:18 EDT Findings: large right frontal scalp hematoma. No intra-axial mass, midline shift, hydrocephalus, or acute hemorrhage. No significant atrophy-like change or white matter disease. The visualized paranasal sinuses and mastoid air cells are normal. The orbits are unremarkable. There is no acute fracture. IMPRESSION: 1. No acute intracranial findings Specifically no acute intracranial hemorrhage. 2. Large frontal scalp hematoma. This document has been electronically signed by: Lesly Elizalde MD on 06/07/2025 21:00:26
[2025-06-07 17:16] VITALS: BP 132/86; PULSE 74; O2SAT 97
[2025-06-07 17:31] VITALS: BP 154/105; PULSE 74; RESP 18; TEMP 36.8; O2SAT 99; BMI 26.6
--- OUTSIDE RECORDS SUMMARY | 2025-06-07 18:15 | XMS_ITS | Data Portability ---
Author Organization [employer], [facility] Address [address] [place] [address] Care Team Providers Care Insemination Worker Name Role Phone HIM CCA OTHER Assessment Encounter Date Assessment Date Assessment LastModified by Organization Details LastModified Time 02/20/2024 02/20/2024 AA, RRR, lungs clear, no abd tenderness, No slurred speech No neurological deficits but somewhat sleepy- much more awake and interactive post IVF gbaci Not available 02/20/2024 21:10:17 02/24/2024 02/24/2024 As noted, we were called to see this patient regarding concerns of injury. Evaluation in the field was performed by my instructional technologist colleague, as noted above, I provided real-time direction and supervision for this visit. The evaluation revealed 63y M with soft tissue injury 2/2 pressure and decreased perfusion from tight payal wrap. Though tender on unwrapping, no longer having any pain and exhibiting full mobility and sensation suggesting against ischemia or mm injury such as to cause rhabdo. Given rapid recovery and full improvement except discoloration, will obs. Low threshold to call back. Wlil ask CRC to reach out tomorrow. Impression: pressure injury to RUE Plan: reassurance, observation, recheck tomorrow Primary care, consider f/u in 5-7d to make plan for chrnic RUE pain Disposition: We discussed the diagnostic uncertainty of home visits and the risk associated with this. In this case, the patient and I felt this to be an acceptable and reasonable amount of risk given the benefit of avoiding an ED visit. We discussed the need to seek care urgently/emergen tly in the setting of any new or worsening serious symptoms, particularly decreasing strength, increasing pain of RUE atilhou Not available 02/24/2024 18:23:51 05/08/2024 05/08/2024 I have reviewed and agree with the assessment and plan as documented by the instructional technologist. I provided real-time medical direction for this encounter and was immediately available to provide additional phone-based assistance as needed. History as noted in EMR and by instructional technologist. I would add / emphasize: Patient with a reported history of peripheral vertigo on meclizine is seen for worsening dizziness and nausea. Patient also reports mild intermittent left-sided pleuritic chest discomfort. Denies fevers chills myalgias. Denies persistent chest pain or difficulty breathing. Denies leg pain, swelling, or hx of VTE. AVSS, well-appearing, afebrile, saturating well on room air at rest, and not tachycardic. Cannot fully rule out pulmonary embolism due to age. ECG with normal sinus rhythm no acute ischemic changes. [id number]-[id number] BMP checked along with hematocrit which reveals mild hyperglycemia consistent with diagnosis of diabetes but no other acute metabolic abnormalities. Patient attributes his symptoms to his chronic vertigo. Subsequently held conversation with patient through medical insurance biller over the phone and recommended that the safest/most conservative course would be presentation to the emergency department given new complaint of chest pain and inability to rule out PE or ACS with this visit. Patient voices understanding of the limitations of our home visit but would like to monitor his symptoms at home and present to the emergency department if they are worsening. Understands that we are not able to rule out either of these potentially life-threatening conditions at home (ACS/PE) but declines ED evaluation at this time. Family at bedside similarly demonstrate understanding of patient's preference for home monitoring of symptoms with ED presentation if they worsen. Encouraged close follow-up with PCP. pallfather Not available 05/08/2024 17:37:41 Plan of Treatment Reminders Order Date Submit Date Provider Last Modified By Organization Details Last Modified Time Details Appointments None recorded. Lab BMP, serum or plasma [address], [id number] 4 18:34:13 urinalysis, dipstick [address], [id number] 4 08:22:01 BMP, serum or plasma 2023 [email or web address], [address] [place] [address], [id number] 4 19:57:03 glucose, fingerstick , blood 2023 024 [facility], [address] [place] [address], [id number] 4 19:38:49 hemoglobin + hematocrit, blood [address], [address] 4 19:57:28 BMP, serum or plasma 2023 024 [facility], [address] [place] [address], [address] [place] [address] 4 20:52:30 Referral None recorded. Procedures None recorded. Surgeries None recorded. Imaging electrocard iogram [email or web address], [address] [place] [address] 4 14:57:48 Medication Orders None recorded. Patient TargetsNo targets recorded. Patient InstructionsNo instructions recorded. Reason for Referral None Reported. Results Created Date Observation Date Name Description Value Unit Range Abnormal Flag Note LastModifiedBy Organization Detail LastModifiedTime 02/20/2002/20/2024 BMP, serum or plasm a BUN 10 Not Available [facility] - [facility] [address], [address] [place] [address] 02/20/2024 20:51:46 02/20/2002/20/2024 BMP, serum or plasm a Ca 1.12 Not Available [facility] [address], [address] [place] [address] 02/20/2024 20:51:46 02/20/2002/20/2024 BMP, serum or plasm a CI- 97 Not Available [facility] [address], [address] [place] [address] 02/20/2024 20:51:46 02/20/2002/20/2024 BMP, serum or plasm a CRE 0.7 Not Available [facility] [address], [address] [place] [address] 02/20/2024 20:51:46 02/20/2002/20/2024 BMP, serum or plasm a GLU 348 Not Available [facility] [address], [address] [place] [address] 02/20/2024 20:51:46 02/20/20 24 02/20/2024 BMP, serum or plasm a K+ 4.0 Not Available [facility] [address], [address] [place] [address] 02/20/2024 20:51:46 02/20/20 24 02/20/2024 BMP, serum or plasm a Na+ 136 Not Available [facility] [address], [address] [place] [address] 02/20/2024 20:51:46 02/20/20 24 02/20/2024 BMP, serum or plasm a tCO2 28 Not Available [facility] [address], [address] [place] [address] 02/20/2024 20:51:46 02/20/20 24 02/20/2024 hemog lobin + hemat ocrit , blood Hemoglobin 11.6 Not Available [facility] - [facility], [address] [place] [address] 02/20/2024 19:57:10 02/20/20 24 02/20/2024 hemog lobin + hemat ocrit , blood Hematocrit 34 Not Available [facility] - [facility], [address] [place] [address] 02/20/2024 19:57:10 02/20/20 24 02/20/2024 BMP, serum or plasm a BUN 10 Not Available [facility] [address], [address] [place] [address] 02/20/2024 19:38:06 02/20/20 24 02/20/2024 BMP, serum or plasm a Ca 0.99 Not Available [facility] [address], [address] [place] [address] 02/20/2024 19:38:06 02/20/20 24 02/20/2024 BMP, serum or plasm a CI- 98 Not Available [facility] [address], [address] [place] [address] 02/20/2024 19:38:06 02/20/20 24 02/20/2024 BMP, serum or plasm a CRE 0.7 Not Available [facility] - [facility] [address], [id number] 02/20/2024 19:38:06 02/20/20 24 02/20/2024 BMP, serum or plasm a GLU 368 Not Available [facility] [address], [address] [place] [address] 02/20/2024 19:38:06 02/20/20 24 02/20/2024 BMP, serum or plasm a K+ 4.0 Not Available [facility] [address], [address] [place] [address] 02/20/2024 19:38:06 02/20/20 24 02/20/2024 BMP, serum or plasm a Na+ 135 Not Available [facility] [address], [address] [place] [address] 02/20/2024 19:38:06 02/20/20 24 02/20/2024 BMP, serum or plasm a tCO2 26 Not Available [facility] [address], [address] [place] [address] 02/20/2024 19:38:06 02/20/20 24 02/20/2024 gluco se, finge rstic k, blood Blood Glucose: mg/dl 368 Not Available [facility] - [address], [address] [place] [address] 02/20/2024 19:38:25 05/08/20 24 05/08/2024 elect gisselle phamgr am No observ ation record ed. [email or web address] [address], [address] [place] [address] 05/08/2024 18:33:30 Result Notes None recorded. Medical Equipment None Reported. Allergies Allergen ID Allergen Name Allergen Category Reaction Reaction Severity Criticality Documentation Date Start Date Code Code System Note Provider Name and Address Organization Details Recorded Time 5061 metformin medicatio n Not available Not available Not available 11/26/2023 6809 RxNorm Not Available [facility] - production 12:57:51 Medications Name Sig Start Date Stop Date Status Note LastModified by Organization Details LastModified Time freestyle lite test strips active Not Available Not Available Not Available freestyle lite meter active Not Available Not Available N ot Available freestyle 28g lancets active Not Available Not Available Not Available BD Alcohol Swabs active Not Available Not Available Not Available atorvastatin 80 mg tablet TAKE 1 TABLET BY MOUTH AT BEDTIME active Not Available Not Available No t Available doxycycline hyclate 100 mg capsule active Not Available Not Available N ot Available ammonium lactate 12 % lotion active Not Available Not Available Not Available metoprolol succinate ER 50 mg tablet,exten ded release 24 hr TAKE 1 TABLET BY MOUTH AT BEDTIME active Not Available Not Available No t Available cephalexin 250 mg capsule active Not Available Not Available Not Available senna 8.6 mg tablet TAKE 2 TABLETS BY MOUTH EVERY DAY active Not Available Not Available No t Available ondansetron HCl 4 mg tablet TAKE 1 TABLET BY MOUTH EVERY 8 HOURS FOR 10 DAYS NEEDED FOR NAUSEA & VOMITING active Not Available Not Available No t Available isosorbide mononitrate ER 30 mg tablet,exten ded release 24 hr TAKE 1 TABLET BY MOUTH EVERY DAY active Not Available Not Available No t Available clonazepam 0.5 mg tablet active Not Available Not Available Not Available bacitracin 500 unit/gram topical ointment APPLY SPARINGLY TO LEFT HEEL WOUND THEN COVER WITH DRY STERILE DRESSING TWICE A DAY FOR 7 DAYS active Not Available Not Available N ot Available meclizine 12.5 mg tablet TAKE 2 TABLETS BY MOUTH 3 TIMES A DAY FOR 6 DAYS NEEDED FOR DIZZINESS active Not Available Not Available No t Available aspirin 81 mg tablet,delay ed release TAKE 1 TABLET BY MOUTH EVERY DAY ,X90 DAYS,INSTR: BLOOD THINNER active Not Available Not Available No t Available quetiapine 100 mg tablet active Not Available Not Available Not Available tamsulosin 0.4 mg capsule TAKE 2 CAPSULES BY MOUTH EVERY DAY FOR 90 DAYS active Not Available Not Available No t Available cephalexin 500 mg capsule active Not Available Not Available Not Available nortriptylin e 10 mg capsule active Not Available Not Available Not Available docusate sodium 100 mg capsule active Not Available Not Available N ot Available sertraline 25 mg tablet active Not Available Not Available Not Available morphine ER 15 mg tablet,exten ded release TAKE 1 TABLET BY MOUTH EVERY 12 HOURS,X28 DAYS active Not Available Not Available No t Available mupirocin 2 % topical ointment APPLY TOPICALLY 3 TIMES A DAY FOR 7 DAYS active Not Available Not Available N ot Available ondansetron 4 mg disintegrati ng tablet DISSOLVE 1 TABLET BY MOUTH EVERY 8 HOURS FOR 5 DAYS NEEDED FOR NAUSEA AND VOMITING active Not Available Not Available No t Available finasteride 5 mg tablet TAKE 1 TABLET BY MOUTH EVERY DAY FOR 30 DAYS active Not Available Not Available No t Available oxycodone 5 mg tablet TAKE 1 TABLET BY MOUTH EVERY 6 HOURS NEEDED FOR PAIN FOR 28 DAYS active Not Available Not Available No t Available Heartburn Relief (famotidine) 10 mg tablet TAKE 1 TABLET BY MOUTH TWICE A DAY active Not Available Not Available No t Available pregabalin 150 mg capsule active Not Available Not Available Not Available Lantus Solostar U-100 Insulin 100 unit/mL (3 mL) subcutaneous pen INJECT 23 UNITS SUBCUTANEOU S INJECTION DAILY AT BEDTIME active Not Available Not Available No t Available Humalog KwikPen (U-100) Insulin 100 unit/mL subcutaneous active Not Available Not Available Not Available oxycodone 10 mg tablet 1 TABLET BY MOUTH EVERY 6 HOURS,X28 DAYS NEEDED FOR PAIN active Not Available Not Available No t Available Stool Softener 100 mg tablet TAKE 1 TABLET BY MOUTH TWICE A DAY NEEDED FOR CONSTIPATIO N active Not Available Not Available No t Available Gavilax 17 gram/dose oral powder DISSOLVE 17 GRAMS IN 4-8 OUNCES OF BEVERAGE AND DRINK ONCE DAILY active Not Available Not Available N ot Available Jardiance 25 mg tablet TAKE 1 TABLET BY MOUTH EVERY MORNING active Not Available Not Available No t Available OxyContin 10 mg tablet,crush resistant,ex tended release TAKE 1 TABLET BY MOUTH EVERY 12 HOURS FOR 7 DAYS (NEED PRIMARY INS) active Not Available Not Available No t Available FreeStyle Vladislav 2 Sensor kit APPLY ONE SENSOR EVERY 14 DAYS CHECK GLUCOSE 4 TIMES A DAY active Not Available Not Available Not Available Vitals Date Recorded Heart rate Oxygen saturation Respiratory rate Body temperature Systolic And Diastolic Provider Name and Address Organization Details Last Updated DateTime 4 93 /min 97 % 16 /min 101.6 [degF] 136/82 mm[Hg] Not Available [employer] 4 19:52:49 Date Recorded Body temperature Oxygen saturation Respiratory rate Heart rate Body weight Systolic And Diastolic Provider Name and Address Organization Details Last Updated DateTime 4 97.5 [degF] 100 % 16 /min 72 /min 81529.9 44 g 134/76 mm[Hg] Not Available [employer] 4 13:09:06 Date Recorded Oxygen saturation Body temperature Heart rate Respiratory rate Systolic And Diastolic Provider Name and Address Organization Details Last Updated DateTime 4 95 % 98.4 [degF] 86 /min 16 /min 124/72 mm[Hg] Not Available [facility] - production 4 19:34:42 Date Recorded Heart rate Respiratory rate Body temperature Oxygen saturation Systolic And Diastolic Provider Name and Address Organization Details Last Updated DateTime 4 70 /min 20 /min 97.6 [degF] 100 % 111/58 mm[Hg] Not Available [facility] - production 4 17:50:49 Date Recorded Respiratory rate Body weight Body height Heart rate Oxygen saturation Body temperature Systolic And Diastolic Provider Name and Address Organization Details Last Updated DateTime 4 18 /min 86472.8 g 182.88 cm 67 /min 98 % 98 [degF] 150/91 mm[Hg] Not Available [facility] - [facility] 4 14:30:00 Social History None recorded. Functional Status None recorded. Mental Status None recorded. Family History Nothing Reported. Medical History No medical history recorded. Past Encounters Encounter ID Performer Location Encounter Start Date Encounter Closed Date Diagnosis/Indication Diagnosis SNOMED-CT Code Diagnosis ICD10 Code Diagnosis IMO Codes Diagnosis Note [id number] Fabiola Garcia MD [facility] [address] [place] [phone] 11/26/2023 12:04:17 11/26/2023 17:42:30 Blister of lower limb with infection 025840676 L08.9 Change Keflex to 500 mg 2 pills twice a day advised the need for compliance -will add topical ABX. Patient requested prescripti ons go to [facility] in [facility] dic cleanse wound, apply bacitracin then apply DSD-advise d need for close follow-up with PCP. Hyperglycemia [id number] R 73.9 Blood sugar has reportedly been running in the high 300s for weeks -patient is not always compliant with his diet or his diabetic regimen. Patient has not had his lispro today nor has he eaten. Advised patient to eat and take his lispro sliding scale as directed. Noncomplia nce with regimen will lead to worsening sugars and make it more difficult to heal the wound. Advise close follow-up with PCP regarding this issue as well. [id number] Herve Clark MD [facility] [address] [place] [phone] 12/02/2023 20:31:52 12/04/2023 17:24:27 Wound of skin 482231224 T14.8XXA As noted, we were called to see this patient regarding concerns of wound and concern for infection. Evaluation in the field was performed by my instructional technologist colleague, as noted above, I provided real-time direction and supervisio n for this visit. The evaluation revealed a stable-gisella earing wound without warmth, discharge, or concerning findings other than the overall appearance . Pt with neuropathy and so limited sensation. VS reassuring . We think infection unlikely. Impression :Wound of skin which does not appear infected. Cannot entirely rule out so will kana and as to monitor. nothing suggestive of infection and so will not treat with abx. Plan:Reass uranceclos e monitoring continued wound care as currently Primary care, considerch abdon-in call this week. Dispositio n:We discussed the diagnostic uncertaint y of home visits and the risk associated with this. In this case, the patient and I felt this to be an acceptable and reasonable amount of risk given the benefit of avoiding an ED visit. We discussed the need to seek care urgently/e mergently in the setting of any new or worsening serious symptoms, particular ly fever, warmth of foot, purulent discharge. [id number] Logan Coles MD [facility] [address] [place] [phone] 01/10/2024 19:52:38 01/11/2024 17:39:59 Osteomyelitis of left foot [id number] 863602 M86.9 This 63-year-ol d male has had a chronic ulcer on his left foot that recently got worse. He now has a fever with weakness. I reviewed an image of the area and I suspect he has osteomyeli tis with possible sepsis. I recommende d that he go to the ER for further evaluation and treatment. The patient agreed with this plan. [id number] Estrella Brumfield MD [facility] - [facility] [address] [place] [phone] 01/30/2024 13:09:04 01/30/2024 22:25:56 Hyperglycemia 25862484 R73.9 As noted, we were called to see this patient regarding concerns of fatigue, high blood sugars. Evaluation in the field was performed by my instructional technologist colleague, as noted above, I provided real-time direction and supervisio n for this visit. The evaluation revealed:[age] y.o man with DM, HTN, osteomyeli tis now with PICC for abx. Per son he was lethargic this morning, and had more solid/soft stools than usual, with a BG of 400. He is now much more alert/inte ractive. BG 207.Review ed his labs from yesterday with [facility]; Cr 0.6, electrolyt es normal.HR and BP and normal and he is taking PO.He is due to get an insulin pump tomorrow. Impression :hyperglyc emia, no signs of severe dehydratio n based on yesterdays lab reports or VS Plan:Agree with need for increased BG control. Would ensure he is drinking adequate sugar free fluids Primary care, considerfo llow up for BG control Dispositio n: We discussed the diagnostic uncertaint y of home visits and the risk associated with this. In this case, the patient and I felt this to be an acceptable and reasonable amount of risk given the benefit of avoiding an ED visit. We discussed the need to seek care urgently/e mergently in the setting of any new or worsening serious symptoms, particular ly changes to consciousn ess, difficulty breathing, chest pain, diarrhea. [id number] SHAGGY ADAMES MD [facility] [address] [place] [phone] 02/20/2024 19:34:34 02/21/2024 12:47:48 Transient altered mental status [id number] R41.82 Evaluation in the field was performed by my instructional technologist colleague, as noted above, I provided real-time direction and supervisio n for this visit. The evaluation revealed a 63-year-ol d male with a history of Type 2 diabetes mellitus on an insulin pump, hypertensi on, peripheral vascular disease status post stenting on Plavix, and a heel ulcer with osteomyeli tis. He recently completed a 6-week treatment with IV antibiotic s and presents with concerns for altered mental status. The son reports that the patient was very confused this morning, looking distant and lost, unable to feed himself, showing no coordinati on, taking longer to respond, and unable to ambulate. Usually, his blood glucose (BG) ranges between 100-200 since starting the insulin pump, but this morning, his BG was in the 80s, prompting the family to decrease the insulin delivered via the pump. The son denies slurred speech, facial droop, fever, chills, chest pain, and shortness of breath. The patient's mental status seems to have improved during the visit. The patient continues to decline an ED visit. Of note, he was seen by us on 01/29 with increased lethargy, which was believed to be due to hyperglyce yary; BG at that time was 400. BP: 124/72 mmHgAfebri leSpO2: 95% on room air Exam findings:N o slurred speechNo neurologic al deficits but somewhat sleepy- much more awake and interactiv e post IVFLabs:BG : 368BMP results:Na : 135K: 4.0Cl: 98HCO3: 26BUN: 10Creatini ne: 0.7BCalcium : 0.99H/H: 11.6/34 Impression :Transient altered mental status / hyperglyce yary Plan:-No concerns for HHS since effective osmolarity is 290.-No concerns for DKA since anion gap is 11 and HCO3 is 26.-Receiv ed 1 liter of lactated Ringer's , resulting in improved alertness and more interactio n with family. Ionized calcium improved to 1.12. Blood glucose still 348.-Plan for urinalysis and urine culture, but the patient was unable to void even after IV fluids. The son reports that the patient usually voids once a day due to prostate issues. The patient was offered a straight catheter but refused.-H as a follow-up with vascular surgery tomorrow. Advised to call the primary care for close follow-up. -Red flags were discussed with the family. Primary care, consider__ _ Dispositio n: We discussed the diagnostic uncertaint y of home visits and the risk associated with this. In this case, the patient and I felt this to be an acceptable and reasonable amount of risk given the benefit of avoiding an ED visit. We discussed the need to seek care urgently/e mergently in the setting of any new or worsening serious symptoms, particular ly fever, chills, CP, SOB, ongoing or worsening changes on mental status , weakness, neuro deficits, slurred speech or any other concerns. [id number] Jessica Franklin MD [facility] - [facility] [address] [place] [phone] 02/24/2024 17:50:44 02/25/2024 10:46:32 Pain in right arm [id number] M79.601 [id number] Raúl Jackson MD [facility] [employer] [address] [place] [phone] 05/08/2024 14:08:23 05/08/2024 22:43:10 Dizziness [id number] R42 Health Concerns Section Related Observation LastModified by Organization Detai ls LastModified Time None Recorded Concern Status LastModified by Organization Details LastModified Time None Recorded Advance Directives Directive None Recorded Payers Insurance Date Sequence Insurance Name Policy Number Policy Call Covered Member ID Call Member ID Guarantor Name 05/08/2024 1 [facility] - DOS ON OR AFTER 2022 - DUAL ELIGIBLE - LONGTERM OPTIONS AND ONE CARE (MEDICARE REPLACEMENT/AD VANTAGE - HMO) Escobar Dedrick [id number] Escobar Tse Notes Date Note Type Note Provider Name and Address Organization Details Recorded Time 01/10/2024 text/html ROS as noted in the [facility] CRC Nurse Triage Notes (Chinyere Aguilar): Reason For Request: Patient has a wound on his foot, and is diabetic, possibly infected, fever. Chief Complaints: Fever/Chills PMH: Diabetes, Hypertension Allergies: Unknown Comments: Increased fatigue today and nausea today. Low grade temp today 100.1 30 min ago. BGL 206. Increased pain today. Wound to left foot. Dressing changed 3x/week. Son reports increased redness and drainage. Concerned for possible infection to wound. Logan Coles MD [address] [place] [address],[address], [place], [id number] [employer] 01/10/2024 19:57:49 01/30/2024 text/html CRC Nurse Triage Notes (Tianna Sellers): Reason For Request: Glucose Chief Complaints: Dehydration PMH: Diabetes, Hypertension Comments: Preparatory Technician verified the member's name//address and phone number. Member is a 63 yr old male. azerbaijani speaking, son speaks polish PMH > DM > HTN Allergies > Metformin Son calling for member that BS have been high. Member is not drinking much. Members BS has been 400 and will go down and up, last check high 200's. Member is normally under control but does not have pump that will be placed tomorrow. Member is tired and not eating or drinking much. Son was told to increase his fluids and member refusing ER. Education provided on the response time and the member was advised to monitor reported s/s and seek emergency treatment if needed .................... .................... .................... .................... .................... .................... .................... . Deputy Court Clerk Note From Sukhi Friend: Pt son worried pt dehydrated due to high BS as of lately. Pt has appt tomorrow to have new insulin pump installed. Pt POc bloodwork done yesterday. Unremarkable. Bs today 207. Only access is pic line. Pt denies cp sob headache NVD cough. Baseline vitals assessed. Bs assessment. [facility] [place] and advised pt to continue with appt tomorrow. Drink plenty of fluids. Pt and son education on signs indicating the ER. .................... .................... .................... .................... .................... .................... .................... . Disposition: Hansel Brumfield MD [address] [facility],[address], [place], [address], [employer] 01/30/2024 13:30:18 02/20/2024 text/html ROS as noted in the HPI CRC Nurse Triage Notes (Jas Buckner): Reason For Request: Patient seems to be lost, confused, distant. Doesn't hit his mouth when eating with forks/spoons, Weak, can't stand. Patient Reports: Sudden onset -unilateral weakness/gait disturbance; Sudden Mental status changes Denies: Worst Headache of life Fall with head strike and altered LOC New onset of Slurred speech or difficulty finding words Head pain not relieved by medication greater than 8 hours Head pain greater than 8 hours -unrelated to falls or injury Head pain with nausea vomiting Chief Complaints: Weakness/Lethargy PMH: Diabetes, Hypertension Allergies: Unknown Comments: Preparatory Technician verified the member's name//address and phone number. Education provided on the response time and the member was advised to monitor reported s/s and seek emergency treatment if needed. CG reports the member has been confused since this morning - Looks distant and lost. Unable to feed himself -no coordination - Weakness - taking longer to respond - Unable to ambulate - Concerns expressed and the member is declining the ER - Concerns expressed again - ER treatment declined. Deputy Court Clerk Organization Information for Norbert Howard [employer] Legal Name: [employer] Address: [address] [place] [address], Industrial Furnace Fabricator: Jose Guadalupe Curtis MD CLIA No.: [id number] Deputy Court Clerk POC Test Results from [facility]bert Howard Blood Glucose Measurement (19:28:58) Blood Glucose: 368 mg/dL iSTAT Chem8+ (19:47:08) Na: 135 mEq/L K: 4.0 mEq/L Cl: 98 mEq/L iCa: 0.99 mmol/L TCO2: 26 mmol/L Glu: 368 mg/dL BUN: 10 mg/dL Crea: 0.7 mg/dL Hct: 34 % Hb: 11.6 g/dL A iSTAT Chem8+ (20:46:40) Na: 136 mEq/L K: 4.0 mEq/L Cl: 97 mEq/L iCa: 1.12 mmol/L TCO2: 28 mmol/L Glu: 348 mg/dL BUN: 10 mg/dL Crea: 0.7 mg/dL Hct: 32 % Hb: 10.9 g/dL A .................... .................... .................... .................... .................... .................... .................... . Deputy Court Clerk Note From Norbert Howard: Dispatched for the call address for a pt. with weakness and weakness on one side. pt. was found alert and oriented azerbaijani speaking only family on scene to interpret noting the patient today was presenting lethargic, slightly confused and this morning was leaning towards one side. family also noted when he was trying to eat breakfast he was missing his mouth with the food. pt. was refusing the emergency room. some of the symptoms had resolved but the pt. still felt weak and lethargic but now was more alert. stroke scale showed weakness in right arm but family noted it was baseline from a rotator cuff injury from a long time ago. pt. was on blood thinners and noted a recent surgery in which they placed a stent in the vasculature in his right leg to improve blood flow and circulation. pt. also had a large severe wound to his right heel which was being addressed but was currently bandaged. pt. was not taking antibiotics for any infection from the foot. medication list provided to [facility]. pt. vitals assessed on scene. -chest pain -sob -abd pain -nvd -urinary issues -bowel issues. pt. was advised to be transported to the hospital for rule out stroke but refused at this time. [facility] [place] and ordered a bmp, IV, U/A and 1 L LR. IV established 20 gauge LAC-LR 1000ml IV drip. all bmp results recorded with repeat but pt. unable to urinate. pt. assessment airway open and patent breathing non labored circulation +radial pulse -heent abnormalities -jvd -tracheal deviation +and= chest rise and fall abd soft and non tender pelvis in tact +cms in all extremities -dcapbtls. [facility] recontacted and was informed that patient mental status and alertness had improved following fluid and forwarded second BMP results. [facility] ordered a straight cath which the patient refused at this time. red flag warnings discussed with the family and patient and informed the family what symptoms to watch for and the dangers of a possible stroke/tia and to call 911 if they occurred. family noted they would discuss the urine test tomorrow with the pt. doctor. family noted it was hard to get a urine test since the patient only urinated once a day. [facility] warned that was a high risk for UTI.all times are approx.report completed by vik hwoard. .................... .................... .................... .................... .................... .................... .................... . Disposition: Fulfilled SHAGGY ADAMES MD [address] [place] [address],[address], [place], [phone], [employer] 02/20/2024 23:03:01 02/24/2024 text/html CRC Nurse Triage Notes (Jd Clement): Reason For Request: Pt's son Salas reporting right arm swelling (all day), feels numb, cramp like sensation, turning reddish, hot to the touch Chief Complaints: Edema, Pain PMH: Diabetes, Hypertension Allergies: Unknown Comments: Preparatory Technician verified the member's name//address and phone number. Mbr's son reports mbr c/o pain in R arm since last night. Mbr has hx of chronic pain in R arm. Son reports mbr went to bed with elastic wrap in place overnight. Son reports mbr's arm noted to be swollen and hot to the touch even after taking off the elastic wrap. Education provided on the response time and the member was advised to monitor reported s/s and seek emergency treatment if needed -HANNAH Sierra HPI: chronc R arm pain w rotator cuff injury and neuropathy 2/2 T2DM. to tx pain yesterday, warpped RUE and today noticed skin discoloration, swelling and warmth to touch............... .................... .................... .................... .................... .................... .................... ....... Deputy Court Clerk Note From Kiki Mobley: Pt Luxembourgish-speaking, son available to interpret. Pt has hx of chronic pain in right arm, arthritis, diabetes with neuropathy. Per son, late last night/early this morning pt wrapped and payal bandage on r forearm to help with pain in arm. Son observed swelling around the bandage at around 0800 and removed it; at that time pt had swelling, numbness and tingling in arm. Currently, mild swelling in hand, discoloration to forearm; strong radial pulse, normal sensation, no pain with palpation, and able to move extremity independently with no numbness or tingling in fingers. [facility] consulted, son will continue to monitor, supportive care for pain and swelling. Red flags reviewed. .................... .................... .................... .................... .................... .................... .................... . Disposition: Fulfilled Jessica Franklin MD [address] [place] [address],[address], [place], [phone], [employer] 02/24/2024 18:56:22 05/08/2024 text/html CRC Nurse Triage Notes (Aundrea Bowers): Reason For Request: Patient woke up, feels vomity, general illness symptoms. Chief Complaints: Dehydration, Nausea/Vomiting, Weakness/Lethargy, Syncope/Dizziness/Li ghtheadedness PMH: Diabetes, Hypertension Other Allergies: metformin, ertapenem Comments: Patients son calling in to place a referral, patient identified via name and . PMHx- HTN and DM. ALLERGIES- metformin and ertapenem. Patient who woke up today feeling nauseous, dizzy with general malaise, no appetite and dizziness. Patient denies vomiting or diarrhea, no chest pain or sob, no headache or vision changes, no fever/chills, but occasional sweats. Patient would like to be evaluated. Deputy Court Clerk Organization Information for Mahad Murphy [employer] Legal Name: [facility] Address: [address] [place], [place] [address] [address], Industrial Furnace Fabricator: Braydon Rajput MD CLIA No.: [id number] Deputy Court Clerk POC Test Results from [employer] EKG (14:30:25) EKG test performed. Attachments uploaded as part of this test result can be found under Documents section. epoc (14:30:28) pH: 7.437 pH units pCO2: 44.9 mmHg pO2: 21.8 mmHg Na: 136 mmol/L K: 4.0 mmol/L iCa: 1.12 mmol/L Cl: 97 mmol/L TCO2: 30.5 mEq/L Hct: 39 % Hb: 13.1 g/dL Glu: 283 mg/dL Lac: 1.25 mmol/L Cr: 0.67 mg/dL BUN: 13 mg/dL A .................... .................... .................... .................... .................... .................... .................... . Deputy Court Clerk Note From Mahad Murphy: Patient alert and oriented, supine on mattress on floor in living room. Patient, through on scene family uniform maker, complains of dizziness and nausea this morning, worse than normal. Patient took meclizine today, but not Zofran. Patient also complains of left side, chest discomfort, one of 10 pain, increases on inspiration. Patient states pain started today. Patient reports normal intake and elimination, denies any other pain or complaints. Patient reports he uses 4 to 6 units insulin daily based on blood sugar reading. Patient states last BGL was 139 this morning.Patient pink warm dry secondary exam unremarkable lung sounds clear negative increase work of breathing positive full sentences. Abdomen soft nontender extremities unremarkable. Left foot has a wound VAC applied. Wound VAC tube is full of clear fluid. Patient reports no concern with wound or healing. [facility] suggest patient attend hospital for evaluation of chest discomfort. Patient declines states he will monitor situation and go if it gets worse. Patient states he l l take Zofran and see if that helps. Red flags thoroughly reviewed, patient education discussed. Family with patient patient and family demonstrate understanding of care and plan. Patient encouraged to follow up with with PCP. .................... .................... .................... .................... .................... .................... .................... . Disposition: Fulfilled Raúl Jackson MD [address] [facility],[address], [place], [address], [employer] [facility] [employer] 05/08/2024 17:38:12
--- OUTSIDE RECORDS SUMMARY | 2025-06-07 18:15 | XMS_ITS ---
Author Name [facility] Organization Unknown Problems Problem Status Onset Date Problem Type Date of Resoluti on Source POTS (postural orthostatic tachycardia syndrome) active EncounterDiagnosisAct CCT Care Team Organization Name Specialty Phone Email Start Date End Da [facility] SHEILA KOHLI Primary Care 02/03/2024
--- NOTE | 2025-06-07 19:05 | ECG_ITS ---
Test Reason : FALL Blood Pressure : */* mmHG Vent. Rate : 65 BPM Atrial Rate : 65 BPM P-R Int : 172 ms QRS Dur : 86 ms QT Int : 390 ms P-R-T Axes : 25 -48 98 degrees QTcB Int : 405 ms Sinus rhythm with Premature atrial complexes Left anterior fascicular block Anteroseptal infarct (cited on or before 12-Sep-2019) ST & T wave abnormality, consider lateral ischemia Abnormal ECG When compared with ECG of 01-Feb-2024 14:06, Premature atrial complexes are now Present Referred By: Franklyn Pantoja Electronically Signed By: Errol Sanford
--- NOTE | 2025-06-07 19:31 | ED.FALL ---
HPI - Fall General Chief Complaint: Fall Stated Complaint: fall Time Seen by Provider: 06/07/25 17:54 History of Present Illness ED Provider: Franklyn Pantoja MD HPI Narrative: History of Present Illness The patient reports dizziness for the past two days. He has a history of diabetic neuropathy. Approximately 2.5 hours prior to arrival, the patient lost balance and fell in the area between the kitchen and bathroom at home. The patient lives alone. He now complains of severe headache. On examination, a ~1 cm laceration with a large hematoma is noted above the right eyebrow. No midline cervical spine tenderness was elicited. Related Data Home Medications ?Medication ?Instructions ?Recorded ?Confirmed aspirin 81 mg tablet,delayed 81 mg PO DAILY 01/11/24 01/11/24 release atorvastatin 80 mg tablet 80 mg PO DAILY 01/11/24 01/11/24 clopidogrel 75 mg tablet 75 mg PO DAILY 01/11/24 01/11/24 docusate sodium 100 mg tablet 100 mg PO BID PRN constipation 01/11/24 01/11/24 (Stool Softener) empagliflozin 25 mg tablet 25 mg PO DAILY 01/11/24 01/11/24 (Jardiance) famotidine 10 mg tablet (Heartburn 10 mg PO BID 01/11/24 01/11/24 Relief (famotidine)) finasteride 5 mg tablet 5 mg PO DAILY 01/11/24 01/11/24 insulin glargine 100 unit/mL (3 23 unit subcut DAILY 01/11/24 01/11/24 mL) subcutaneous pen (Lantus Solostar U-100 Insulin) insulin lispro 100 unit/mL 1 sliding scale dose subcut TID 01/11/24 01/11/24 subcutaneous pen (Humalog KwikPen (U-100) Insulin) isosorbide mononitrate 30 mg 30 mg PO DAILY 01/11/24 01/11/24 tablet,extended release 24 hr losartan 25 mg tablet 12.5 mg PO DAILY 01/11/24 01/11/24 meclizine 12.5 mg tablet 12.5 mg PO TID PRN dizziness 01/11/24 01/11/24 metoprolol succinate 50 mg 50 mg PO DAILY 01/11/24 01/11/24 tablet,extended release 24 hr midodrine 5 mg tablet 5 mg PO TID 01/11/24 01/11/24 morphine 15 mg tablet,extended 15 mg PO Q12H 01/11/24 01/11/24 release nortriptyline 10 mg capsule 10 mg PO BEDTIME 01/11/24 01/11/24 ondansetron 4 mg disintegrating 4 mg PO Q8H PRN nausea/vomiting 01/11/24 01/11/24 tablet polyethylene glycol 3350 17 17 g PO DAILY 01/11/24 01/11/24 gram/dose oral powder (Gavilax) sennosides 8.6 mg tablet (senna) 17.2 mg PO DAILY 01/11/24 01/11/24 tamsulosin 0.4 mg capsule 0.8 mg PO DAILY 01/11/24 01/11/24 Previous Rx's ?Medication ?Instructions ?Recorded ertapenem 1 gram solution for 1 g IV Q24H #37 ea 01/15/24 injection oxycodone 10 mg tablet 10 mg PO Q6H PRN pain #20 tabs 01/15/24 methocarbamol 750 mg tablet 750 mg PO Q8H PRN pain, moderate 01/23/25 #10 tabs Allergies Allergy/AdvReac Type Severity Reaction Status Date / Time metformin (Metformin) Allergy Mild ? Verified 06/07/25 17:33 INTOLERANCE PMFSH Past Medical History Medical History Heart attack Hypercholesterolemia HTN (hypertension) Diabetes Social History Social History Household Members: None Housing: Apartment Patient Tobacco Use Status: Never used Tobacco Advance Directives Date on File: 01/18/24 service: No Physical Exam Exam: Exam: Primary Survey: GCS: 15 Airway: Intact airway Breathing: Spontaneous respirations with bilateral breath sounds Circulation: Palpable bilateral carotid, brachial, femoral DP pulses with good skin color and distal perfusion. Disability: No gross paresis of the extremities or obvious focal neuro deficit. E FAST Ultrasound: NA Secondary Survey GENERAL: Well appearing. No apparent distress. Alert. HEAD: Moderate-sized hematoma above the right eyebrow with a small very superficial laceration about 1 cm overlying this. No active bleeding there is dried blood along the face. There is no tenderness to face, and the oral and nasal mucosa are nonbloody. Dentition is intact. The TMs are without hemotympanum. NECK: Cervical collar in place. There is no midline cervical neck tenderness or stepoffs. The patient denies any numbness, tingling, or weakness of the extremities. ?After clinical clearance; collar removal: The patient is able to range their neck completely without midline cervical pain, numbness, tingling, or weakness. EYES: Normal to inspection. Sclera non-icteric. EOMI, Pupils grossly symmetric/reactive. ENMT: External nose normal. No facial depression, gross hemotympanum, epistaxis. RESPIRATORY: Respiratory effort normal. Lungs clear to auscultation bilaterally. CARDIOVASCULAR: Regular rate. Normal rhythm. No murmur. No rubs. GI: Soft, non-tender, non-distended. No rebound or guarding. No masses palpable. No hepatosplenomegaly. No bruising. MSK: Chest Wall: Atraumatic, nontender, no crepitus, seat belt sign or ecchymosis. Back: No ecchymosis, no abrasions or other external signs of trauma, no midline spinal tenderness. Upper Extremities: Atraumatic, no swelling, deformity, focal tenderness, +FROM of all joints. Lower Extremities: Atraumatic, no swelling, deformity, focal tenderness, +FROM of all joints. SKIN: No jaundice. No abrasions, lacerations, or ecchymosis. NEUROLOGICAL: Alert. Comprehensive Neuro exam: Face symmetric, tongue midline, strong symmetric eye closure intact strong face deviation and shoulder shrug. Sensation intact to light touch throughout 5 out of 5 strength in bilateral upper extremities, 5 and 5 strength in lower extremities bilaterally? PSYCHIATRIC: Alert. Appearance appropriate for situation. Attitude cooperative. Vital Signs: Vital Signs: Last Vital Signs Temp 97.6 F 06/07/25 23:45 Pulse 62 06/07/25 23:45 Resp 16 06/07/25 23:45 BP 114/68 06/07/25 23:45 Pulse Ox 97 06/07/25 23:45 O2 Del Method Room Air 06/07/25 23:45 BMI result Body Mass Index 26.6 Medications Administered Discontinued Medications Generic Name Dose Route Start Last Admin Trade Name Freq PRN Reason Stop Dose Admin Acetaminophen 975 mg 06/07/25 19:05 06/07/25 19:36 Acetaminophen 325 Mg Tablet PO 06/07/25 19:06 975 mg ONCE ONE Administration Insulin Human Lispro 10 unit 06/07/25 20:52 06/07/25 21:04 Insulin Lispro 100 Unit/Ml 3 Ml Vial SUBCUT 06/07/25 20:53 10 unit ONCE ONE Administration Medical Decision Making Medical Decision Making MDM Narrative: Medical Decision Making: [age] male with fall sounds mechanical but also has been mildly dizzy. No chest pain or palpitations. Large hematoma of the right eye. The patient is awake alert oriented and has a capacity his neck was examined without any focal tenderness and I have cleared him clinically. CT head plan. Tylenol for headache at this time aspirin only no full anticoagulation. Likely concussion. No actionable wound Preliminary Favored Differential Diagnosis: Concussion intracranial hemorrhage, hematoma to the scalp hyperglycemia among additional considered etiologies Testing Interpreted Independently: ?See below for details Radiology or Lab testing Results Reviewed: ?See below for details Consults: ?See below for details Independent Historians/External Chart Reviews: ?See below for details Social Determinants of Health Impacting MDM/Planning: ?See below for details Lab Data 06/07/25 20:08 06/07/25 20:08 Labs: Lab Results 06/07/25 Range/Units 20:08 WBC 4.5 L (4.8-10.8) X10*3/uL RBC 5.32 (4.60-5.80) X10*6/uL Hgb 15.3 (14.0-18.0) g/dl Hct 44.4 (42.0-52.0) % MCV 83.5 (80.0-98.0) fL MCH 28.8 (27.0-33.0) pg MCHC 34.5 (31.0-36.0) g/dl RDW 12.4 (11.0-16.0) % Plt Count 133 L (160-400) X10*3/uL MPV 12.1 (9.4-12.4) fL Immature Gran % (Auto) 0.2 (0.0-0.4) % Neut % (Auto) 61.6 (45-73) % Lymph % (Auto) 28.7 (20-40) % Beckham % (Auto) 6.4 (2-11) % Eos % (Auto) 2.9 (0-4) % Baso % (Auto) 0.2 (0-2) % Lymph # (Auto) 1.3 (1.2-4.9) X10*3/uL Beckham # (Auto) 0.3 (0.1-1.2) X10*3/uL Eos # (Auto) 0.1 (0.0-0.4) X10*3/uL Baso # (Auto) 0.0 (0.0-0.2) X10*3/uL Abs Immat Gran (auto) 0.01 (0.00-0.03) X10*3/uL Absolute Neuts (auto) 2.8 (2.0-8.3) x10*3/uL Absolute Nucleated RBC 0.000 (0.0-0.012) X10*3/uL Nucleated RBC % (auto) 0.0 (0.0-0.2) /100WBC Sodium 137 (135-145) mmol/L Potassium 4.5 (3.3-5.1) mmol/L Chloride 101 (96-108) mmol/L Carbon Dioxide 27 (22-29) mmol/L Anion Gap 14 (12-20) BUN 13 (9-16) mg/dL Creatinine 0.93 (0.5-1.4) mg/dL Estim Creat Clear Calc 67.0 Estimated GFR > 60 Random Glucose 450 H* (60-115) mg/dL Calcium 8.9 (8.4-10.2) mg/dL Total Bilirubin 0.8 (0.0-1.0) mg/dL AST 35 (5-37) U/L ALT 28 (0-40) U/L Alkaline Phosphatase 121 H (39-117) U/L Total Protein 6.9 (6.5-8.0) g/dL Albumin 4.2 (3.5-5.0) g/dL Discharge Plan Discharge Clinical Impression: Acute hyperglycemia Patient Disposition: Home, Self-Care Instructions: Concussion (ED), Diabetic Hyperglycemia (ED) Additional Instructions: You were evaluated for a fall use sustained a hematoma or bruise to the scalp but there was no intracranial injuries. You had high blood sugar but no signs of diabetic emergency on your labs you were given 10 units insulin and had improvement of your blood sugar here in the emergency department. He had likely suffered a concussion see the attached instructions. Call your primary doctor watch your glucose closely Prescriptions: No Action morphine 15 mg tablet extended release 15 mg PO Q12H atorvastatin 80 mg tablet 80 mg PO DAILY famotidine [Heartburn Relief (famotidine)] 10 mg tablet 10 mg PO BID metoprolol succinate 50 mg tablet extended release 24 hr 50 mg PO DAILY isosorbide mononitrate 30 mg tablet extended release 24 hr 30 mg PO DAILY midodrine 5 mg tablet 5 mg PO TID meclizine 12.5 mg tablet 12.5 mg PO TID PRN (Reason: dizziness) clopidogrel 75 mg tablet 75 mg PO DAILY aspirin 81 mg tablet,delayed release (DR/EC) 81 mg PO DAILY tamsulosin 0.4 mg capsule 0.8 mg PO DAILY nortriptyline 10 mg capsule 10 mg PO BEDTIME losartan 25 mg tablet 12.5 mg PO DAILY polyethylene glycol 3350 [Gavilax] 17 gram/dose powder 17 g PO DAILY ondansetron 4 mg tablet,disintegrating 4 mg PO Q8H PRN (Reason: nausea/vomiting) docusate sodium [Stool Softener] 100 mg tablet 100 mg PO BID PRN (Reason: constipation) finasteride 5 mg tablet 5 mg PO DAILY insulin lispro [Humalog KwikPen Insulin] 100 unit/mL insulin pen 1 sliding scale dose subcut TID insulin glargine [Lantus Solostar U-100 Insulin] 100 unit/mL (3 mL) insulin pen 23 unit subcut DAILY Jardiance 25 mg tablet 25 mg PO DAILY sennosides [senna] 8.6 mg tablet 17.2 mg PO DAILY ertapenem 1 gram recon soln 1 g IV Q24H Qty: 37 0RF oxycodone 10 mg tablet 10 mg PO Q6H PRN (Reason: pain) Qty: 20 0RF methocarbamol 750 mg tablet 750 mg PO Q8H PRN (Reason: pain, moderate) Qty: 10 0RF Interventions: ED Discharge Assessment Last Done: 06/07/25 23:45 Discharge Date/Time: 06/07/25 23:46 Print Language: Syriac
[2025-06-07 20:20] LABS: MANUAL DIFF FLAG NO
[2025-06-07 20:22] LABS: Hematocrit 44.4 % (42.0-52.0); Hemoglobin 15.3 g/dl (14.0-18.0); Imm Gran Abs Auto 0.01 X10*3/uL (0.00-0.03); Imm Gran Pct Auto 0.2 % (0.0-0.4); Lymphocytes Absolute Auto 1.3 X10*3/uL (1.2-4.9); Mean Corpuscular HGB Conc 34.5 g/dl (31.0-36.0); Mean Corpuscular Hemoglobin 28.8 pg (27.0-33.0); Mean Corpuscular Volume 83.5 fL (80.0-98.0); NRBC Abs Auto 0.000 X10*3/uL (0.0-0.012); NRBC Pct Auto 0.0 /100WBC (0.0-0.2); Platelet Count 133 X10*3/uL (160-400); Red Blood Count 5.32 X10*6/uL (4.60-5.80); White Blood Count 4.5 X10*3/uL (4.8-10.8)
[2025-06-07 20:46] LABS: Alanine Aminotransferase 28 U/L (0-40); Albumin Level 4.2 g/dL (3.5-5.0); Alkaline Phosphatase 121 U/L (39-117); Anion Gap 14 (12-20); Aspartate Amino Transferase 35 U/L (5-37); Blood Urea Nitrogen 13 mg/dL (9-16); Calcium 8.9 mg/dL (8.4-10.2); Carbon Dioxide 27 mmol/L (22-29); Chloride 101 mmol/L (96-108); Creatinine Clr Calc Pharmacy 67.0; Estimated Glomerular Filt Rate > 60; Potassium 4.5 mmol/L (3.3-5.1); Sodium 137 mmol/L (135-145); Total Protein 6.9 g/dL (6.5-8.0)
[2025-06-07 23:24] VITALS: BP 114/63; PULSE 63; RESP 18; O2SAT 97
[2025-06-07 23:45] VITALS: BP 114/68; PULSE 62; RESP 16; TEMP 36.4; O2SAT 97
[2025-06-08 17:16] LABS: Glucose, Whole Blood 191 mg/dL (60-115)
[2025-06-08 17:18] LABS: Glucose, Whole Blood 411 mg/dL (60-115)
[2025-06-08 17:18] LABS: Glucose, Whole Blood 305 mg/dL (60-115)
== END 2025-06-07 23:46 | disposition home or self-care (01) ==
PROVIDERS: Emergency Provider Emergency Medicine; PCP Internal Medicine
DX: S00.11XA Contusion of right eyelid and periocular area, initial encounter (principal); E11.65 Type 2 diabetes mellitus with hyperglycemia; R51.9 Headache, unspecified; R94.31 Abnormal electrocardiogram [ECG] [EKG]; X58.XXXA Exposure to other specified factors, initial encounter; Y93.9 Activity, unspecified; Y92.9 Unspecified place or not applicable; Y99.8 Other external cause status; Z79.4 Long term (current) use of insulin; Z79.899 Other long term (current) drug therapy
CPT/HCPCS: 36415; 70450; 80053; 82947; 85025; 93005; 99283; 99284; 99285

== ENCOUNTER → 2025-06-07 19:05 | Outpatient (BNV) | payer OTHER, SELFPAY | PROVIDERS: Emergency Provider Emergency Medicine; PCP Internal Medicine; Visit Provider Student in an Organized Health Care Education/Training Program | DX: S00.03XA Contusion of scalp, initial encounter (principal); Z04.3 Encounter for examination and observation following other accident | CPT/HCPCS: 70450 ==

== ENCOUNTER → 2025-06-07 19:05 | Outpatient (BNV) | payer OTHER, SELFPAY | PROVIDERS: Emergency Provider Emergency Medicine; PCP Internal Medicine; Visit Provider Internal Medicine Cardiovascular Disease | DX: I49.1 Atrial premature depolarization (principal); I44.4 Left anterior fascicular block; I25.2 Old myocardial infarction | CPT/HCPCS: 93010 ==